=== PATIENT | male | born 1930 | race Caucasian/White ===

== ENCOUNTER 2016-09-23 23:54 | Inpatient (IN) | payer MEDICARE, OTHER ==
[2016-09-23 23:54] VITALS: BMI 26.4
--- NOTE | 2016-09-24 00:22 | C.PDOC ---
History Of Present Illness The patient, with PMHx of severe Parkinson's Disease, presents to the ED via BLS for evaluation of generalized weakness. Additional history limited due to patient being a poor historian. Time Seen by Provider: 09/24/16 00:16 Chief Complaint (Nursing): Weakness/Neurological Deficit History Per: Patient History/Exam Limitations: clinical condition (severe Parkinson's Disease ) Onset/Duration Of Symptoms: Hrs Current Symptoms Are (Timing): Still Present Severity: Mild Pain Scale Rating Of: 3 Recent travel outside of the [place]: No Additional History Per: Patient Past Medical History Reviewed: Historical Data, Nursing Documentation, Vital Signs Vital Signs: Last Vital Signs Temp 98 F 09/23/16 23:57 Pulse 80 09/23/16 23:57 Resp 20 09/23/16 23:57 BP 96/55 L 09/23/16 23:57 Pulse Ox 98 09/24/16 01:23 - Medical History PMH: CHF, HTN, Parkinson's Disease Surgical History: No Surg Hx Family History: States: Unknown Family Hx - Social History Hx Tobacco Use: No Hx Alcohol Use: No Hx Substance Use: No - Immunization History Hx Tetanus Toxoid Vaccination: Yes Hx Influenza Vaccination: Yes Hx Pneumococcal Vaccination: Yes Review Of Systems Review Of Systems: ROS cannot be obtained secondary to pt's inabilty to answer questions. Physical Exam - Physical Exam Appears: Non-toxic, No Acute Distress Skin: Warm, Dry, Ecchymosis (old, to upper extremity ), Other (small, 1cm skin tear to left forearm ) Head: Normacephalic Eye(s): bilateral: Normal Inspection Oral Mucosa: Moist Neck: Supple Chest: Symmetrical, No Deformity, No Tenderness Cardiovascular: Rhythm Regular, No Murmur Respiratory: No Rales, No Rhonchi, No Wheezing Extremity: No Normal ROM (b/l cogwheel rigidity ), Capillary Refill (less than 2 seconds ) Neurological/Psych: No Normal Speech (difficult ) Gait: Other (+shuffling) ED Course And Treatment - Laboratory Results Result Diagrams: 09/24/16 00:39 09/24/16 00:39 ECG: Interpreted By Me, Viewed By Me ECG Rhythm: Sinus Rhythm (83), Nonspecific Changes O2 Sat by Pulse Oximetry: 98 (on RA) Pulse Ox Interpretation: Normal - Radiology CXR Interpretation: No: Infiltrates, Fracture, Pnemothorax Progress Note: labs, CXR, and EKG ordered and reviewed. Disposition Discussed With Dr.: Vitaliy Lauren Comment: accepteed the tp on his service and took over the care Doctor Will See Patient In The: ED Counseled Patient/Family Regarding: Studies Performed, Diagnosis - Disposition Disposition: HOSPITALIZED Disposition Time: 00:22 Condition: FAIR - POA Present On Arrival: Falls Or Trauma, Poor Glycemic Control - Clinical Impression Clinical Impression: Status post fall, Diabetes mellitus, Recurrent falls, Parkinson disease - Scribe Statement The provider has reviewed the documentation as recorded by the Scribe (Sarah Sheriff) Provider Attestation: All medical record entries made by the Scribe were at my direction and personally dictated by me. I have reviewed the chart and agree that the record accurately reflects my personal performance of the history, physical exam, medical decision making, and the department course for this patient. I have also personally directed, reviewed, and agree with the discharge instructions and disposition. Decision To Admit - Pt Status Changed To: Hospital Disposition Of: Inpatient - Admit Certification Admit to Inpatient:: After my assessment, the patient will require hospitalization for at least two midnights. This is because of the severity of symptoms shown, intensity of services needed, and/or the medical risk in this patient being treated as an outpatient. - InPatient: Physician Admission Certification: I certify that this patient requires 2 or more midnights of care for the following reason:: After my assessment, the patient will require hospitalization for at least two midnights. This is because of the severity of symptoms shown, intensity of services needed, and/or the medical risk in this patient being treated as an outpatient. - . Bed Request Type: Regular Admitting Physician: Vitaliy Lauren Patient Diagnosis: Status post fall, Diabetes mellitus, Recurrent falls, Parkinson disease
[2016-09-24 00:44] LABS: BASO # 0.1 K/uL (0.0-0.2); HEMOGLOBIN 11.1 g/dL (12.0-18.0); MEAN CELL VOLUME 93.4 fL (80.0-94.0); NEUT # 7.8 K/uL (1.8-7.0)
[2016-09-24 00:46] LABS: BASO % 0.7 % (0.0-2.0); EOS # 0.1 K/uL (0.0-0.7); EOS % 1.4 % (0.0-4.0); LYMPH % 9.7 % (20.0-40.0); MEAN CORPUSCULAR HEMOGLOBIN 31.1 pg (27.0-31.0); MEAN CORPUSCULAR HGB CONC 33.3 g/dL (33.0-37.0); MONO % 9.8 % (0.0-10.0); NEUT % 78.4 % (50.0-75.0); PLATELET COUNT 160 K/uL (130-400); RBC 3.56 Mil/uL (4.40-5.90); RED CELL DISTRIBUTION WIDTH 14.1 % (11.5-14.5); WHITE BLOOD COUNT 9.9 K/uL (4.8-10.8)
[2016-09-24 00:54] LABS: ALBUMIN 3.6 g/dL (3.5-5.0)
[2016-09-24 00:57] LABS: ALB/GLOB RATIO 0.8 (1.0-2.1); AST/SGOT 98 U/L (17-59); BLOOD UREA NITROGEN 30 mg/dL (9-20); GFR AFRICAN-AMERICAN > 60; GFR NON-AFRICAN AMERICAN 52
[2016-09-24 00:58] LABS: ALT/SGPT 45 U/L (21-72); CALCIUM 9.2 mg/dl (8.6-10.4)
[2016-09-24 01:28] LABS: INR 1.3; PROTHROMBIN TIME 14.4 SECONDS (9.7-12.2)
--- NOTE | 2016-09-24 01:58 | CT ---
EXAM: CT Head Without Intravenous Contrast CLINICAL HISTORY: 86 years old, male; Pain; Headache; Patient HX: Mri 08-16-15; Additional info: Fall, parkinson TECHNIQUE: Axial computed tomography images of the head/brain without intravenous contrast. This CT exam was performed using one or more of the following dose reduction techniques: automated exposure control, adjustment of the mA and/or kV according to patient size, and/or use of iterative reconstruction technique. EXAM DATE/TIME: 09/24/2016 1:03 AM COMPARISON: Prior images are not available for review. FINDINGS: Brain: There is dilatation of sulci gyri and ventricles. There is no midline shift. There is decreased attenuation in periventricular white matter. There are no focal masses. There are no focal hemorrhages. Biswas-white differentiation is visualized. Ventricles: See above. Bones: Cranial vault is intact. Soft tissues: unremarkable Sinuses: There is no acute sinusitis. Ears and mastoids: Middle ears and mastoids are unremarkable. Orbits: Orbital contents are unremarkable. IMPRESSION: Atrophy and small vessel disease, no acute intracranial abnormality
--- NOTE | 2016-09-24 04:29 | CP.PCM.HP ---
<Myranda Herring - Last Filed: 09/24/16 05:33> History of Present Illness - History of Present Illness History of Present Illness: Medicine Note CC: frequent falls HPI: 86M with PMHx of CHF, HTN, HLD, DM presents to the ED due to frequent falls by EMS. Difficult to obtain history, due to patient's speech. From what patient recalls, is that he fell yesterday, hit his head, injured both elbows. No family was at bedside. As per nurse, Niece: Leonor [phone] can be reached. ROS unattainable due to patient's speech. PMHx: As per previous records: CHF, HTN, HLD, DM PSHx: Unattainable Meds: As per MAR All: NKDA SHx: Unattainable FHx: Unattainable Present on Admission - Present on Admission Any Indicators Present on Admission: No Review of Systems - Constitutional Constitutional: absent: Anorexia, Fever - EENT Eyes: absent: Change in Vision Ears: absent: Tinnitus Nose/Mouth/Throat: absent: Sore Throat, Neck Mass - Cardiovascular Cardiovascular: absent: Chest Pain, Radiating Pain - Respiratory Respiratory: absent: Cough, Dyspnea, Dyspnea on Exertion - Gastrointestinal Gastrointestinal: absent: Abdominal Pain - Genitourinary Genitourinary: absent: Dysuria, Hematuria - Musculoskeletal Musculoskeletal: absent: Back Pain - Integumentary Integumentary: absent: Wounds - Neurological Neurological: Abnormal Gait, Frequent Falls, Loss of Vision, Weakness. absent: Abnormal Hearing, Dizziness, Numbness - Psychiatric Psychiatric: absent: Anxiety - Hematologic/Lymphatic Hematologic: absent: Easy Bleeding Past Patient History - Infectious Disease Hx of Infectious Diseases: None - Past Medical History & Family History Past Medical History?: Yes - Past Social History Smoking Status: Never Smoked - CARDIAC Hx Congestive Heart Failure: Yes Hx Hypertension: Yes - NEUROLOGICAL Hx Parkinson's Disease: Yes - HEENT Hx Cataracts: Yes - ENDOCRINE/METABOLIC Hx Diabetes Mellitus Type 2: Yes - MUSCULOSKELETAL/RHEUMATOLOGICAL Hx Falls: Yes - PSYCHIATRIC Hx Substance Use: No - SURGICAL HISTORY Hx Surgeries: Yes (right ankle surgery, bilateral eye surgeries) - ANESTHESIA Hx Anesthesia: No Meds Allergies/Adverse Reactions: Allergies Allergy/AdvReac Type Severity Reaction Status Date / Time No Known Allergies Allergy Verified 09/24/16 00:01 Physical Exam - Constitutional Appears: No Acute Distress - Head Exam Head Exam: NORMAL INSPECTION, NORMOCEPHALIC - Eye Exam Eye Exam: EOMI, Normal appearance, PERRL Pupil Exam: NORMAL ACCOMODATION - ENT Exam ENT Exam: Mucous Membranes Moist - Neck Exam Neck exam: Positive for: Normal Inspection - Respiratory Exam Respiratory Exam: Clear to Auscultation Bilateral, NORMAL BREATHING PATTERN. absent: Wheezes - Cardiovascular Exam Cardiovascular Exam: REGULAR RHYTHM, RRR, +S1, +S2 - GI/Abdominal Exam GI & Abdominal Exam: Normal Bowel Sounds, Soft. absent: Distended, Tenderness - Rectal Exam Rectal Exam: NORMAL INSPECTION - Extremities Exam Extremities exam: Positive for: normal inspection, pedal pulses present. Negative for: pedal edema, tenderness - Back Exam Back exam: NORMAL INSPECTION - Neurological Exam Neurological exam: Alert, CN II-XII Intact, Oriented x3 - Psychiatric Exam Psychiatric exam: Normal Affect, Normal Mood - Skin Skin Exam: Dry, Intact, Normal Color, Warm Results - Vital Signs Recent Vital Signs: Last Vital Signs Temp 98 F 09/23/16 23:57 Pulse 80 09/23/16 23:57 Resp 20 09/23/16 23:57 BP 96/55 L 09/23/16 23:57 Pulse Ox 98 09/24/16 01:23 - Labs Result Diagrams: 09/24/16 00:39 09/24/16 00:39 Labs: Laboratory Results - last 24 hr 09/24/16 09/24/16 09/24/16 00:39 00:39 01:11 WBC 9.9 RBC 3.56 L Hgb 11.1 L Hct 33.3 L MCV 93.4 D MCH 31.1 H MCHC 33.3 RDW 14.1 Plt Count 160 MPV 10.0 Neut % (Auto) 78.4 H Lymph % (Auto) 9.7 L [place] % (Auto) 9.8 Eos % (Auto) 1.4 Baso % (Auto) 0.7 Neut # 7.8 H Lymph # 1.0 [place] # 1.0 H Eos # 0.1 Baso # 0.1 PT 14.4 H INR 1.3 APTT 30 Sodium 139 Potassium 3.8 Chloride 106 Carbon Dioxide 23 Anion Gap 14 BUN 30 H Creatinine 1.3 Est GFR ( Amer) > 60 Est GFR (Non-Af Amer) 52 Random Glucose 149 H Calcium 9.2 Total Bilirubin 0.9 AST 98 H D ALT 45 Alkaline Phosphatase 122 Total Protein 8.1 Albumin 3.6 Globulin 4.5 H Albumin/Globulin Ratio 0.8 L Assessment & Plan - Assessment and Plan (Free Text) Assessment: 86M with PMHx of CHF, HTN, HLD, DM presents to the ED due to frequent falls. Plan: Frequent Falls * Head CT w/o contrast: Atrophy and small vessel disease, no acute intracranial abnormality * F/U vit D, vit B12 CHF * Last ECHO: 07/2015 EF 70% with mild pulm HTN HTN * Continue home medication: Lisinopril 5mg PO daily HLD * Continue home medication: Crestor 10mg PO QHS DM * Accuchecks * Held patient's home medication: Amaryl Prophylactic Measure * GI PPX: Protonix 40mg PO daily * DVT PPX: Heparin Q12H, SCDs * Heart Healthy - soft diet * PT/OT eval * Social Work Consult : YANET planning * Fall Risk Precautions DW Nima Calvin DO, PGY-1 <Vitaliy Lauren P - Last Filed: 09/29/16 06:33> Results - Vital Signs Recent Vital Signs: Last Vital Signs Temp 97.7 F 09/27/16 15:00 Pulse 81 09/27/16 15:00 Resp 20 09/27/16 15:00 BP 118/64 09/27/16 15:00 Pulse Ox 97 09/27/16 15:00 - Labs Result Diagrams: 09/27/16 06:16 09/27/16 06:16 Attending/Attestation - Attestation I have personally seen and examined this patient.: Yes I have fully participated in the care of the patient.: Yes I have reviewed all pertinent clinical information: Yes
[2016-09-24 04:45] LABS: BANDS 1 % (0-2); BASOPHIL 1 % (0-2); EOSINOPHIL 1 % (0-4); LYMPHOCYTE 11 % (20-40); MONOCYTE 6 % (0-10); NEUTROPHIL 80 % (50-75); PLATELET ESTIMATE NORMAL (NORMAL); TOTAL CELLS COUNTED 100
[2016-09-24 08:50] LABS: SQUAMOUS EPITHIAL < 1 /hpf (0-5); URINE BACTERIA FEW (<OCC); URINE BILIRUBIN NEGATIVE (NEGATIVE); URINE BLOOD 1+ (NEGATIVE); URINE CLARITY Clear (Clear); URINE COLOR Yellow (YELLOW); URINE GLUCOSE (UA) NORMAL (Normal); URINE LEUKOCYTE ESTERASE NEG Leu/uL (Negative); URINE NITRATE NEGATIVE (NEGATIVE); URINE PROTEIN 2+ mg/dL (NEGATIVE); URINE UROBILINOGEN NORMAL mg/dL (0.2-1.0)
--- NOTE | 2016-09-24 09:39 | CP.PCM.PN ---
<Shania Abdullahi - Last Filed: 09/24/16 19:41> Subjective - Date & Time of Evaluation Date of Evaluation: 09/24/16 Time of Evaluation: 09:35 - Subjective Subjective: Medicine Prorgress Note- Dr. Romano's Service Patient was seen and examined at bedside in no acute distress. Patient has difficulty speaking due to slurring and stuttering that he has had for over a year. He beleives its due to lack of dentures. Patient reports having pain, numbness and tingling in his legs due to his diabetes. Patient states he had a headache and dizziness. Kody reports falling on his head and he thinks its due to his neuropathy, diabetes, and his difficulty with seeing. Per patient, this is his second time falling this year. Patient is awake, alert, and oriented to person, place, but not time. Kody denies chest pain, abdominal pain, nausea, and vomiting. Objective - Vital Signs/Intake and Output Vital Signs (last 24 hours): Temp Pulse Resp BP Pulse Ox 97.9 F 79 18 129/68 100 09/24/16 09:33 09/24/16 09:33 09/24/16 09:33 09/24/16 09:33 09/24/16 09:33 - Medications Medications: Current Medications Aspirin (Aspirin Chewable) 81 mg PO DAILY [facility] Lisinopril (Zestril) 5 mg PO DAILY AUG[facility] Pantoprazole Sodium (Protonix Ec Tab) 40 mg PO DAILY AUGUST Rosuvastatin Calcium (Crestor) 10 mg PO HS AUGUST - Labs Labs: PT 14.4 SECONDS (9.7-12.2) H 09/24/16 01:11 INR 1.3 09/24/16 01:11 APTT 30 SECONDS (21-34) 09/24/16 01:11 - Constitutional Appears: No Acute Distress - Head Exam Head Exam: NORMAL INSPECTION, NORMOCEPHALIC - Eye Exam Eye Exam: Normal appearance. absent: EOMI (decreased vision) - ENT Exam ENT Exam: Mucous Membranes Moist - Neck Exam Neck Exam: Normal Inspection - Respiratory Exam Respiratory Exam: Clear to Ausculation Bilateral, NORMAL BREATHING PATTERN. absent: Rhonchi, Wheezes - Cardiovascular Exam Cardiovascular Exam: REGULAR RHYTHM, +S1, +S2 - GI/Abdominal Exam GI & Abdominal Exam: Soft, Normal Bowel Sounds. absent: Tenderness - Extremities Exam Extremities Exam: Pedal Edema. absent: Calf Tenderness, Tenderness - Neurological Exam Neurological Exam: Alert, Awake. absent: Oriented x3 - Psychiatric Exam Psychiatric exam: Normal Affect, Normal Mood - Skin Skin Exam: Dry, Intact, Normal Color, Warm Assessment and Plan (1) Recurrent falls Assessment & Plan: * Head CT w/o contrast: Atrophy and small vessel disease, no acute intracranial abnormality * Left and Right elbow xray: no fractures * Left hip xray: no fracture * Left knee xray: no fracture * F/U vit D, vit B12 * A1c: f/u Status: Acute (2) CHF (congestive heart failure) Assessment & Plan: * Last ECHO: 07/2015 EF 70% with mild pulm HTN Status: Acute (3) Diabetes mellitus Assessment & Plan: * Accuchecks * Held patient's home medication: Amaryl * A1c: f/u * ISS ACHS Status: Acute (4) Hyperlipidemia Assessment & Plan: * Continue home medication: Crestor 10mg PO QHS Status: Acute (5) Hypertension Assessment & Plan: * Continue home medication: Lisinopril 5mg PO daily * Monitor BP Status: Acute (6) Leg pain, left Assessment & Plan: Left knee xray- no fracture Left Hip xray- no fracture Status: Acute (7) Prophylactic measure Assessment & Plan: * GI PPX: Protonix 40mg PO daily * DVT PPX: Heparin Q12H, SCDs * Heart Healthy - soft diet, [place] thick * PT/OT eval * Social Work Consult : YANET planning * Case work- placement assessment * Fall Risk Precautions Status: Acute <Chepe Romano H - Last Filed: 09/25/16 07:41> Objective - Vital Signs/Intake and Output Vital Signs (last 24 hours): Temp Pulse Resp BP Pulse Ox 98.7 F 71 20 114/64 97 09/25/16 07:20 09/25/16 07:20 09/25/16 07:20 09/25/16 07:20 09/25/16 07:20 Intake and Output: 09/25/16 09/25/16 06:59 18:59 Intake Total 450 Balance 450 - Medications Medications: Current Medications Aspirin (Aspirin Chewable) 81 mg PO DAILY [facility] Last Admin: 09/24/16 10:29 Dose: 81 mg Insulin Human Regular (Novolin R) 0 unit SC ACHS [facility] PRN Reason: Protocol Last Admin: 09/24/16 21:53 Dose: Not Given Lisinopril (Zestril) 5 mg PO DAILY [facility] Last Admin: 09/24/16 10:29 Dose: 5 mg Pantoprazole Sodium (Protonix Ec Tab) 40 mg PO DAILY [facility] Last Admin: 09/24/16 10:29 Dose: 40 mg Rosuvastatin Calcium (Crestor) 10 mg PO HS [facility] Last Admin: 09/24/16 21:56 Dose: 10 mg - Labs Labs: 09/25/16 07:25 PT 14.4 SECONDS (9.7-12.2) H 09/24/16 01:11 INR 1.3 09/24/16 01:11 APTT 30 SECONDS (21-34) 09/24/16 01:11 Attending/Attestation - Attestation I have personally seen and examined this patient.: Yes I have fully participated in the care of the patient.: Yes I have reviewed all pertinent clinical information, including history, physical exam and plan: Yes Notes (Text): Medical attending: Patient was seen and examined by me, agrees the above note by medical esthetician. When he was seen by the medical esthetician earlier in the morning, it appears that he was more awake and alert and able to answer some questions. However by the time I rounded with the medical team. He is much quieter. He was following some basic commands in [place] held for the extent of which was not great news be able to do basic things such as raise his hand stick his tongue out lift his legs on command. However it appears that he has a lot of baseline dementia. Per my discussion with the medical esthetician as well as the nursing staff it's a very questionable how much activities of daily living that this patient is able to do per my discussion with the caseworkers regarding her have physical therapy and OT evaluate and the patient. The patient may ultimately need to go to [facility] and then from [facility] over to assisted care living facility or halfway placement however will still have to wait for PT dulce Reviewed his vital signs lab work they're quite stable at this time. He does have some bruises from the falls that he's had the x-ray imaging is negative for any fractures Thank you very much, Chepe Romano
[2016-09-24] MEDS: Pantoprazole 40 mg EC Tab PO SCH (10:29)
--- NOTE | 2016-09-24 12:09 | RAD ---
PROCEDURE: CHEST RADIOGRAPH, 1 VIEW HISTORY: Shortness of breath COMPARISON: 08/15/2015 FINDINGS: LUNGS: Mild to moderate venous congestion with mild patchy left basilar airspace opacity. Biapical pleural thickening with upper lobe granulomatous changes. PLEURA: As above. CARDIOVASCULAR: Cardiomegaly. Calcification at the aortic knob. OSSEOUS STRUCTURES: Degenerative changes in the spine and shoulders. VISUALIZED UPPER ABDOMEN: Normal. OTHER FINDINGS: None. IMPRESSION: Mild to moderate venous congestion with mild patchy left basilar airspace opacity. Biapical pleural thickening with upper lobe granulomatous changes.
--- NOTE | 2016-09-24 16:48 | RAD ---
PROCEDURE: Radiographs of the left elbow. HISTORY: fall COMPARISON: No prior. FINDINGS: BONES: . No fracture. Coronoid spurring well corticated ossifications ir the lateral epicondyle calcific tendinopathy and or loose bodies here are considerations. Tubing also projects over this area JOINTS: Mild osteoarthritis. SOFT TISSUES: Normal. JOINT EFFUSION: None. OTHER FINDINGS: None IMPRESSION: No fracture. Osteoarthrosis. Lateral humeral epicondylar calcific tendinosis centered loose bodies. Posterior olecranon spurring
--- NOTE | 2016-09-24 16:50 | RAD ---
PROCEDURE: Radiographs of the right elbow. HISTORY: fall COMPARISON: No prior. FINDINGS: BONES: . No fracture.. No fracture. Coronoid spurring well corticated ossifications ir the lateral epicondyle calcific tendinopathy and or loose bodies here are considerations. Tubing also projects over this area. Olecranon spurring. JOINTS: osteoarthritis. SOFT TISSUES: As above JOINT EFFUSION: None. OTHER FINDINGS: None. IMPRESSION: No fracture. Other findings as above
--- NOTE | 2016-09-24 16:52 | RAD ---
PROCEDURE: HISTORY: fall COMPARISON: None TECHNIQUE: AP view of the pelvis and applicable frog leg views obtained. FINDINGS: Bilateral superolateral hip joint space narrowing with acetabular spurring No fracture or dislocation. Lumbosacral prominent spondylosis additional subluxation here is possible per the frontal appearance no lateral views available. Vascular calcifications. Left hemipelvic phlebolith. IMPRESSION: Bilateral hip osteoarthrosis. No hip fracture appreciated. Lumbosacral spondylosis
--- NOTE | 2016-09-24 16:53 | RAD ---
PROCEDURE: Left Knee Radiographs. HISTORY: Pain. COMPARISON: None. FINDINGS: BONES: Quadriceps insertional enthesophyte. . No fracture. JOINTS: Normal. No osteoarthritis. JOINT EFFUSION: None. OTHER FINDINGS: Atherosclerotic vascular calcifications IMPRESSION: No fracture or lytic lesion. Quadriceps enthesophyte. Vascular calcifications
[2016-09-24] MEDS: (Novolin R) Insulin Human Regular 100 units/ml vial SC SCH ×2 (17:45→21:53)
[2016-09-25 07:28] LABS: BASO # 0.1 K/uL (0.0-0.2); BASO % 1.1 % (0.0-2.0); EOS # 0.8 K/uL (0.0-0.7); EOS % 9.2 % (0.0-4.0); HEMOGLOBIN 10.8 g/dL (12.0-18.0); LYMPH # 1.4 K/uL (1.0-4.3); LYMPH % 17.4 % (20.0-40.0); MEAN CELL VOLUME 92.9 fL (80.0-94.0); MEAN CORPUSCULAR HEMOGLOBIN 30.7 pg (27.0-31.0); MEAN PLATELET VOLUME 10.5 fL (7.2-11.7); MONO # 0.9 K/uL (0.0-0.8); MONO % 10.3 % (0.0-10.0); NEUT # 5.1 K/uL (1.8-7.0); RBC 3.52 Mil/uL (4.40-5.90); RED CELL DISTRIBUTION WIDTH 14.4 % (11.5-14.5); WHITE BLOOD COUNT 8.3 K/uL (4.8-10.8)
[2016-09-25 07:41] LABS: ALB/GLOB RATIO 0.6 (1.0-2.1); AST/SGOT 93 U/L (17-59); BLOOD UREA NITROGEN 23 mg/dL (9-20); GFR AFRICAN-AMERICAN > 60; GFR NON-AFRICAN AMERICAN 52
[2016-09-25 07:42] LABS: ALT/SGPT 46 U/L (21-72); CALCIUM 8.9 mg/dl (8.6-10.4); MAGNESIUM 1.9 mg/dL (1.6-2.3)
--- NOTE | 2016-09-25 07:43 | CP.PCM.PN ---
<Shania Abdullahi - Last Filed: 09/25/16 18:33> Subjective - Date & Time of Evaluation Date of Evaluation: 09/25/16 Time of Evaluation: 07:41 - Subjective Subjective: Medicine Progress Note- Dr. Romano's Service Patient was seen and examined at bedside in no acute distress. Patient speaks Turkmen and has slurred stuttered speech, which he reports he has had for a long time. Patient reports having left ankle pain that he says is due to arthritis. Patient denies chest pain, palpitations, abdominal pain, nausea, vomiting, headaches and dizziness. Objective - Vital Signs/Intake and Output Vital Signs (last 24 hours): Temp Pulse Resp BP Pulse Ox 98.7 F 71 20 114/64 97 09/25/16 07:20 09/25/16 07:20 09/25/16 07:20 09/25/16 07:20 09/25/16 07:20 Intake and Output: 09/25/16 09/25/16 06:59 18:59 Intake Total 450 Balance 450 - Medications Medications: Current Medications Aspirin (Aspirin Chewable) 81 mg PO DAILY [facility] Last Admin: 09/24/16 10:29 Dose: 81 mg Insulin Human Regular (Novolin R) 0 unit SC [facility] PRN Reason: Protocol Last Admin: 09/24/16 21:53 Dose: Not Given Lisinopril (Zestril) 5 mg PO DAILY [facility] Last Admin: 09/24/16 10:29 Dose: 5 mg Pantoprazole Sodium (Protonix Ec Tab) 40 mg PO DAILY [facility] Last Admin: 09/24/16 10:29 Dose: 40 mg Rosuvastatin Calcium (Crestor) 10 mg PO [facility] Last Admin: 09/24/16 21:56 Dose: 10 mg - Labs Labs: 09/25/16 07:25 09/25/16 07:09 PT 14.4 SECONDS (9.7-12.2) H 09/24/16 01:11 INR 1.3 09/24/16 01:11 APTT 30 SECONDS (21-34) 09/24/16 01:11 - Constitutional Appears: No Acute Distress - Head Exam Head Exam: NORMAL INSPECTION, NORMOCEPHALIC - Eye Exam Eye Exam: Normal appearance. absent: EOMI (poor vision) - ENT Exam ENT Exam: Mucous Membranes Moist - Neck Exam Neck Exam: Normal Inspection - Respiratory Exam Respiratory Exam: Clear to Ausculation Bilateral, NORMAL BREATHING PATTERN. absent: Rhonchi, Wheezes - Cardiovascular Exam Cardiovascular Exam: +S1, +S2 - GI/Abdominal Exam GI & Abdominal Exam: Soft, Normal Bowel Sounds. absent: Tenderness - Extremities Exam Extremities Exam: Normal Inspection. absent: Calf Tenderness, Pedal Edema, Tenderness - Neurological Exam Neurological Exam: Alert, Awake, Oriented x3 - Psychiatric Exam Psychiatric exam: Normal Affect, Normal Mood - Skin Skin Exam: Dry, Intact, Normal Color (LE discoloration due to PVD), Warm Assessment and Plan (1) Recurrent falls Assessment & Plan: * Head CT w/o contrast: Atrophy and small vessel disease, no acute intracranial abnormality * Left and Right elbow xray: no fractures * Left hip xray: no fracture * Left knee xray: no fracture * Vit D <12.8 --> ergocalciferol 50,000 units weekly * Vit B12 588 * A1c: 7.2 Status: Acute (2) CHF (congestive heart failure) Assessment & Plan: Last ECHO: 07/2015 EF 70% with mild pulm HTN Status: Acute (3) Diabetes mellitus Assessment & Plan: * Accuchecks * Held patient's home medication: Amaryl * A1c: 7.2 * ISS ACHS Status: Acute (4) Hyperlipidemia Assessment & Plan: Continue home medication: Crestor 10mg PO QHS Status: Acute (5) Hypertension Assessment & Plan: Continue home medication: Lisinopril 5mg PO daily Monitor BP Status: Acute (6) Leg pain, left Assessment & Plan: Left knee xray- no fracture Left Hip xray- no fracture Status: Acute (7) Prophylactic measure Assessment & Plan: * GI PPX: Protonix 40mg PO daily * DVT PPX: Heparin Q12H, SCDs * Heart Healthy - soft diet, [place] thick * PT/OT eval * Social Work Consult : YANET planning * Case work- placement assessment * Fall Risk Precautions Status: Acute <Chepe Romano - Last Filed: 09/25/16 18:54> Objective - Vital Signs/Intake and Output Vital Signs (last 24 hours): Temp Pulse Resp BP Pulse Ox 98.9 F 78 20 102/48 L 99 09/25/16 15:50 09/25/16 15:50 09/25/16 15:50 09/25/16 15:50 09/25/16 15:50 Intake and Output: 09/25/16 09/25/16 06:59 18:59 Intake Total 450 480 Balance 450 480 - Medications Medications: Current Medications Aspirin (Aspirin Chewable) 81 mg PO DAILY [facility] Last Admin: 09/25/16 09:45 Dose: 81 mg Ergocalciferol (Drisdol 50,000 Intl Units Cap) 1 cap PO Q7D [facility] Last Admin: 09/25/16 15:51 Dose: 1 cap Heparin Sodium (Porcine) (Heparin) 5,000 units SC Q12 [facility] Insulin Human Regular (Novolin R) 0 unit SC [facility] PRN Reason: Protocol Last Admin: 09/25/16 16:54 Dose: Not Given Lisinopril (Zestril) 5 mg PO DAILY [facility] Last Admin: 09/25/16 09:45 Dose: 5 mg Pantoprazole Sodium (Protonix Ec Tab) 40 mg PO DAILY [facility] Last Admin: 09/25/16 09:45 Dose: 40 mg Rosuvastatin Calcium (Crestor) 10 mg PO HS [facility] Last Admin: 09/24/16 21:56 Dose: 10 mg - Labs Labs: 09/25/16 07:25 09/25/16 07:09 PT 14.4 SECONDS (9.7-12.2) H 09/24/16 01:11 INR 1.3 09/24/16 01:11 APTT 30 SECONDS (21-34) 09/24/16 01:11 Attending/Attestation - Attestation I have personally seen and examined this patient.: Yes I have fully participated in the care of the patient.: Yes I have reviewed all pertinent clinical information, including history, physical exam and plan: Yes Notes (Text): Medical Attending: Patient was seen and examined by me. Agree with the above note by the resident. The patient was awake and alert. Depending on who was talking to the patient it seems as if there were times when he had more mental function and other times when appears somulent. No fevers, blood work stable, vital signs stable as well. Per discussion with case workers still pending on acceptance thank you Chepe Romano
[2016-09-25] MEDS: (Novolin R) Insulin Human Regular 100 units/ml vial SC SCH ×4 (08:06→21:17)
[2016-09-25] MEDS: Pantoprazole 40 mg EC Tab PO SCH (09:45)
[2016-09-25] MEDS ORDERED: Ergocalciferol 50,000 Intl Units Cap PO SCH (14:45)
--- NOTE | 2016-09-26 07:32 | CP.PCM.PN ---
Subjective - Date & Time of Evaluation Date of Evaluation: 09/26/16 Time of Evaluation: 07:29 - Subjective Subjective: Medicine Progress Report-Dr. Romano's Service Patient was seen and examined at bedside. Patient was resting comfortably in bed and in no acute distress. Patient states he has pain in his left leg, likely due to arthritis. Patient denies having chest pain, abdominal pain, shortness of breath, nausea, vomiting, diarrhea, and constipation. Objective - Vital Signs/Intake and Output Vital Signs (last 24 hours): Temp Pulse Resp BP Pulse Ox 98.1 F 75 20 109/61 98 09/25/16 23:49 09/25/16 23:49 09/25/16 23:49 09/25/16 23:49 09/25/16 23:49 Intake and Output: 09/26/16 09/26/16 06:59 18:59 Intake Total 200 Balance 200 - Medications Medications: Current Medications Aspirin (Aspirin Chewable) [address] [facility] Last Admin: 09/25/16 09:45 Dose: 81 mg Ergocalciferol (Drisdol 50,000 Intl Units Cap) [address] [facility] Last Admin: 09/25/16 15:51 Dose: 1 cap Heparin Sodium (Porcine) (Heparin) 5,[address] [facility] Last Admin: 09/25/16 21:36 Dose: 5,000 units Insulin Human Regular (Novolin R) [address] [facility] PRN Reason: Protocol Last Admin: 09/25/16 21:17 Dose: Not Given Lisinopril (Zestril) [address] [facility] Last Admin: 09/25/16 09:45 Dose: 5 mg Pantoprazole Sodium (Protonix Ec Tab) [address] [facility] Last Admin: 09/25/16 09:45 Dose: 40 mg Rosuvastatin Calcium (Crestor) [address] [facility] Last Admin: 09/25/16 21:36 Dose: 10 mg - Labs Labs: 09/25/16 07:25 09/25/16 07:09 PT 14.4 SECONDS (9.7-12.2) H 09/24/16 01:11 INR 1.3 09/24/16 01:11 APTT 30 SECONDS (21-34) 09/24/16 01:11 - Constitutional Appears: No Acute Distress - Head Exam Head Exam: NORMAL INSPECTION, NORMOCEPHALIC - Eye Exam Eye Exam: Normal appearance. absent: EOMI - ENT Exam ENT Exam: Mucous Membranes Moist - Neck Exam Neck Exam: Normal Inspection - Respiratory Exam Respiratory Exam: Clear to Ausculation Bilateral, NORMAL BREATHING PATTERN. absent: Rhonchi, Wheezes - Cardiovascular Exam Cardiovascular Exam: +S1, +S2 - GI/Abdominal Exam GI & Abdominal Exam: Soft, Normal Bowel Sounds. absent: Tenderness - Extremities Exam Extremities Exam: Normal Inspection. absent: Pedal Edema, Tenderness - Neurological Exam Neurological Exam: Alert, Awake. absent: Oriented x3 - Psychiatric Exam Psychiatric exam: Normal Affect, Normal Mood - Skin Skin Exam: Dry, Intact, Normal Color, Warm Assessment and Plan (1) Recurrent falls Assessment & Plan: * Head CT w/o contrast: Atrophy and small vessel disease, no acute intracranial abnormality * Left and Right elbow xray: no fractures * Left hip xray: no fracture * Left knee xray: no fracture * Left ankle xray: f/u * Vit D <12.8 --> ergocalciferol 50,000 units weekly * Vit B12 588 * A1c: 7.2 Status: Acute (2) CHF (congestive heart failure) Assessment & Plan: Last ECHO: 07/2015 EF 70% with mild pulm HTN Status: Acute (3) Diabetes mellitus Assessment & Plan: * Accuchecks * Held patient's home medication: Amaryl * A1c: 7.2 * ISS ACHS Status: Acute (4) Hyperlipidemia Assessment & Plan: Continue home medication: Crestor 10mg PO QHS Status: Acute (5) Hypertension Assessment & Plan: Continue home medication: Lisinopril 5mg PO daily Status: Acute (6) Leg pain, left Assessment & Plan: Left knee xray- no fracture Left Hip xray- no fracture Left ankle xray: f/u Likely secondary to arthritis Status: Acute (7) Prophylactic measure Assessment & Plan: * GI PPX: Protonix 40mg PO daily * DVT PPX: Heparin Q12H, SCDs * Heart Healthy - soft diet, [place] thick * PT/OT eval * Social Work Consult : YANET planning * Case work- placement assessment * Fall Risk Precautions Status: Acute
[2016-09-26] MEDS: (Novolin R) Insulin Human Regular 100 units/ml vial SC SCH ×4 (07:47→21:54)
[2016-09-26 08:25] LABS: BASO # 0.1 K/uL (0.0-0.2); EOS # 0.3 K/uL (0.0-0.7); EOS % 3.8 % (0.0-4.0); HEMOGLOBIN 11.7 g/dL (12.0-18.0); LYMPH # 1.6 K/uL (1.0-4.3); LYMPH % 17.6 % (20.0-40.0); MEAN CELL VOLUME 93.8 fL (80.0-94.0); MEAN CORPUSCULAR HEMOGLOBIN 30.8 pg (27.0-31.0); MEAN CORPUSCULAR HGB CONC 32.8 g/dL (33.0-37.0); MONO # 0.8 K/uL (0.0-0.8); MONO % 8.5 % (0.0-10.0); NEUT # 6.3 K/uL (1.8-7.0); NEUT % 69.1 % (50.0-75.0); RBC 3.82 Mil/uL (4.40-5.90); WHITE BLOOD COUNT 9.1 K/uL (4.8-10.8)
[2016-09-26 08:44] LABS: ALBUMIN 3.4 g/dL (3.5-5.0)
[2016-09-26 08:47] LABS: ALB/GLOB RATIO 0.7 (1.0-2.1); ALT/SGPT 39 U/L (21-72); AST/SGOT 77 U/L (17-59); BLOOD UREA NITROGEN 21 mg/dL (9-20); GFR AFRICAN-AMERICAN > 60; GFR NON-AFRICAN AMERICAN 58
[2016-09-26 08:48] LABS: CALCIUM 9.2 mg/dl (8.6-10.4); MAGNESIUM 1.9 mg/dL (1.6-2.3)
[2016-09-26] MEDS ORDERED: Potassium Chloride 20 mEq ER Tab PO ONE (09:18)
[2016-09-26] MEDS: Pantoprazole 40 mg EC Tab PO SCH (12:46)
--- NOTE | 2016-09-26 16:19 | CARD ---
APPROVED REPORT EKG Measurement Heart [id number] <Conclusion> Normal sinus rhythm Normal ECG
--- NOTE | 2016-09-26 16:46 | RAD ---
PROCEDURE: Left Ankle Radiographs. HISTORY: ankle pain, fall COMPARISON: None FINDINGS: BONES: Evaluation of the posterior malleolus/ posterior fibular cortical anatomy is limited. This limitation may in part be due to summation of vascular calcifications in this area. On the frontal and oblique views no cortical fractures are appreciated. Inferior posterior calcaneal spurring JOINTS: Normal. No significant appearing osteoarthritis. Ankle mortise maintained. Talar dome intact SOFT TISSUES: Atherosclerotic vascular calcifications OTHER FINDINGS: None. IMPRESSION: Evaluation of the posterior malleolus/ posterior fibular cortical anatomy is limited. This limitation may in part be due to summation of vascular calcifications in this area. On the frontal and oblique views no cortical fractures are appreciated. . If clinical symptoms warrant, consider more sensitive evaluation with a CT or MR
[2016-09-26 23:55] VITALS: RESP 20
[2016-09-27 06:22] LABS: BASO # 0.1 K/uL (0.0-0.2); EOS # 0.9 K/uL (0.0-0.7); EOS % 9.7 % (0.0-4.0); HEMOGLOBIN 11.7 g/dL (12.0-18.0); LYMPH # 1.9 K/uL (1.0-4.3); LYMPH % 20.7 % (20.0-40.0); MEAN CORPUSCULAR HEMOGLOBIN 31.3 pg (27.0-31.0); MEAN CORPUSCULAR HGB CONC 33.6 g/dL (33.0-37.0); MONO # 0.9 K/uL (0.0-0.8); MONO % 9.6 % (0.0-10.0); NEUT # 5.4 K/uL (1.8-7.0); RBC 3.73 Mil/uL (4.40-5.90); RED CELL DISTRIBUTION WIDTH 14.3 % (11.5-14.5); WHITE BLOOD COUNT 9.1 K/uL (4.8-10.8)
[2016-09-27 06:38] LABS: ALB/GLOB RATIO 0.7 (1.0-2.1); ALBUMIN 3.4 g/dL (3.5-5.0); ALT/SGPT 39 U/L (21-72); AST/SGOT 59 U/L (17-59); BLOOD UREA NITROGEN 17 mg/dL (9-20); GFR AFRICAN-AMERICAN > 60; GFR NON-AFRICAN AMERICAN 58; MAGNESIUM 1.8 mg/dL (1.6-2.3)
[2016-09-27] MEDS: (Novolin R) Insulin Human Regular 100 units/ml vial SC SCH ×4 (09:28→17:45)
[2016-09-27] MEDS: Pantoprazole 40 mg EC Tab PO SCH (09:28)
--- NOTE | 2016-09-27 15:28 | CP.PCM.DIS ---
<Shania Abdullahi - Last Filed: 09/27/16 15:08> Provider - Provider Date of Admission: 09/24/16 05:20 Attending physician: Vitaliy Lauren MD Time Spent in preparation of Discharge (in minutes): 45 Diagnosis - Discharge Diagnosis (1) Recurrent falls Status: Chronic Comment: See hospital summary for more details. (2) CHF (congestive heart failure) Status: Chronic Comment: See hospital summary for more details. (3) Diabetes mellitus Status: Chronic Comment: See hospital summary for more details. (4) Hyperlipidemia Status: Chronic Comment: See hospital summary for more details. (5) Hypertension Status: Chronic Comment: See hospital summary for more details. (6) Leg pain, left Status: Chronic Comment: See hospital summary for more details. Hospital Course - Lab Results Lab Results: Most Recent Lab Values WBC 9.1 K/uL (4.8-10.8) 09/27/16 06:16 RBC 3.73 Mil/uL (4.40-5.90) L 09/27/16 06:16 Hgb 11.7 g/dL (12.0-18.0) L 09/27/16 06:16 Hct 34.7 % (35.0-51.0) L 09/27/16 06:16 MCV 93.0 fL (80.0-94.0) 09/27/16 06:16 MCH 31.3 pg (27.0-31.0) H 09/27/16 06:16 MCHC 33.6 g/dL (33.0-37.0) 09/27/16 06:16 RDW 14.3 % (11.5-14.5) 09/27/16 06:16 Plt Count 181 K/uL (130-400) 09/27/16 06:16 MPV 10.0 fL (7.2-11.7) 09/27/16 06:16 Neut % (Auto) 59.0 % (50.0-75.0) 09/27/16 06:16 Lymph % (Auto) 20.7 % (20.0-40.0) 09/27/16 06:16 [place] % (Auto) 9.6 % (0.0-10.0) 09/27/16 06:16 Eos % (Auto) 9.7 % (0.0-4.0) H 09/27/16 06:16 Baso % (Auto) 1.0 % (0.0-2.0) 09/27/16 06:16 Neut # 5.4 K/uL (1.8-7.0) 09/27/16 06:16 Lymph # 1.9 K/uL (1.0-4.3) 09/27/16 06:16 [place] # 0.9 K/uL (0.0-0.8) H 09/27/16 06:16 Eos # 0.9 K/uL (0.0-0.7) H 09/27/16 06:16 Baso # 0.1 K/uL (0.0-0.2) 09/27/16 06:16 Neutrophils % (Manual) 80 % (50-75) H 09/24/16 00:39 Band Neutrophils % 1 % (0-2) 09/24/16 00:39 Lymphocytes % (Manual) 11 % (20-40) L 09/24/16 00:39 Monocytes % (Manual) 6 % (0-10) 09/24/16 00:39 Eosinophils % (Manual) 1 % (0-4) 09/24/16 00:39 Basophils % (Manual) 1 % (0-2) 09/24/16 00:39 Platelet Estimate Normal (NORMAL) 09/24/16 00:39 RBC Morphology Normal 09/24/16 00:39 PT 14.4 SECONDS (9.7-12.2) H 09/24/16 01:11 INR 1.3 09/24/16 01:11 APTT 30 SECONDS (21-34) 09/24/16 01:11 Sodium 136 mmol/L (132-148) 09/27/16 06:16 Potassium 4.2 mmol/L (3.6-5.2) 09/27/16 06:16 Chloride 103 mmol/L (98-107) 09/27/16 06:16 Carbon Dioxide 25 mmol/L (22-30) 09/27/16 06:16 Anion Gap 13 (10-20) 09/27/16 06:16 BUN 17 mg/dL (9-20) 09/27/16 06:16 Creatinine 1.2 MG/DL (0.8-1.5) 09/27/16 06:16 Est GFR ( Amer) > 60 09/27/16 06:16 Est GFR (Non-Af Amer) 58 09/27/16 06:16 POC Glucose (mg/dL) 143 mg/dL (65-110) H 09/27/16 11:03 Random Glucose 94 mg/dL (75-110) 09/27/16 06:16 Hemoglobin A1c 7.2 % (4.2-6.5) H D 09/25/16 07:09 Calcium 9.0 mg/dl (8.6-10.4) 09/27/16 06:16 Phosphorus 3.3 mg/dL (2.5-4.5) 09/27/16 06:16 Magnesium 1.8 mg/dL (1.6-2.3) 09/27/16 06:16 Total Bilirubin 0.9 mg/dL (0.2-1.3) 09/27/16 06:16 AST 59 U/L (17-59) D 09/27/16 06:16 ALT 39 U/L (21-72) 09/27/16 06:16 Alkaline Phosphatase 119 U/L (38-126) 09/27/16 06:16 Total Protein 8.1 g/dL (6.3-8.3) 09/27/16 06:16 Albumin 3.4 g/dL (3.5-5.0) L 09/27/16 06:16 Globulin 4.6 gm/dL (2.2-3.9) H 09/27/16 06:16 Albumin/Globulin Ratio 0.7 (1.0-2.1) L 09/27/16 06:16 Vitamin B12 588 pg/mL (239-931) 09/25/16 07:09 25-OH Vitamin D Total < 12.8 NG/ML (30.0-100.0) L 09/25/16 07:09 Urine Color Yellow (YELLOW) 09/24/16 08:02 Urine Clarity Clear (Clear) 09/24/16 08:02 Urine pH 5.0 (5.0-8.0) 09/24/16 08:02 Ur Specific Proctor 1.018 (1.003-1.030) 09/24/16 08:02 Urine Protein 2+ mg/dL (NEGATIVE) H 09/24/16 08:02 Urine Glucose (UA) Normal mg/dL (Normal) 09/24/16 08:02 Urine Ketones Negative mg/dL (NEGATIVE) 09/24/16 08:02 Urine Blood 1+ (NEGATIVE) H 09/24/16 08:02 Urine Nitrate Negative (NEGATIVE) 09/24/16 08:02 Urine Bilirubin Negative (NEGATIVE) 09/24/16 08:02 Urine Urobilinogen Normal mg/dL (0.2-1.0) 09/24/16 08:02 Ur Leukocyte Esterase Neg Adolfo/uL (Negative) 09/24/16 08:02 Urine WBC (Auto) 1 /hpf (0-5) 09/24/16 08:02 Urine RBC (Auto) 1 /hpf (0-3) 09/24/16 08:02 Ur Squamous Epith Cells < 1 /hpf (0-5) 09/24/16 08:02 Urine Bacteria Few (<OCC) H 09/24/16 08:02 Hyaline Casts 3-5 /lpf (0-2) H 09/24/16 08:02 - Hospital Course Hospital Course: CC: frequent falls HPI: 86M with PMHx of CHF, HTN, HLD, DM presents to the ED due to frequent falls by EMS. Difficult to obtain history, due to patient's speech. From what patient recalls, is that he fell yesterday, hit his head, injured both elbows. No family was at bedside. As per nurse, Niece: Leonor [phone] can be reached. ROS unattainable due to patient's speech. Hospital course: Patient was admitted for frequent falls. In the ED, the patient 's EKG showed normal sinus rhythm with nonspecific changes and chest xray showed no infiltrates, fractures, or pneumothorax. The patient a head CT without contrast that showed atrophy and small vessel disease and no acute intracranial abnormalities. Patient had xrays of his left and right elbow, left knee, and left ankle which showed no fractures. Patient has a history of CHF, diabetes mellitus hyperlipidemia, and hypertension which were all managed throughout his hospital stay. Patient is stable for discharge to [facility] as per Dr. Romano. This is a summary of the hospital course, please see chart for more details. Patient is stable for discharge to [facility] facility as per Dr. Romano. Patient must continue the following medications listed below: Aspirin 81mg by mouth daily Crestor 20mg by mouth daily Lisinopril 5mg by mouth daily Vitamin D, take 1 tablet once a week Glimepiride 4mg by mouth twice a day Patient should follow up with their primary care doctor within one week of discharge. If symptoms reoccur, patient should return to the ED. Discharge Exam - Head Exam Head Exam: NORMAL INSPECTION, NORMOCEPHALIC - Eye Exam Eye Exam: Normal appearance. absent: EOMI - ENT Exam ENT Exam: Mucous Membranes Moist - Neck Exam Neck exam: Normal Inspection - Respiratory Exam Respiratory Exam: Clear to PA & Lateral, NORMAL BREATHING PATTERN, UNREMARKABLE. absent: Rales, Rhonchi, Wheezes - Cardiovascular Exam Cardiovascular Exam: REGULAR RHYTHM, +S1, +S2 - GI/Abdominal Exam GI & Abdominal Exam: Normal Bowel Sounds, Soft, Unremarkable. absent: Tenderness - Extremities Exam Extremities exam: normal inspection - Neurological Exam Neurological exam: Alert Additional comments: oriented x 2 - Psychiatric Exam Psychiatric exam: Normal Affect, Normal Mood - Skin Skin Exam: Dry, Intact, Normal Color, Warm Discharge Plan - Follow Up Plan Condition: FAIR Disposition: REHAB FACILITY/REHAB UNIT Instructions: Lisinopril (By mouth), Aspirin (By mouth), Glimepiride (By mouth) , Rosuvastatin (By mouth), Vitamin D (By mouth), Diabetes Mellitus Type 2 in Adults (DC), Fall Prevention for Older Adults (GEN), Chronic Hypertension (DC) Additional Instructions: Patient is stable for discharge to [facility] as per Dr. Romano. Patient must continue the following medications listed below: Aspirin 81mg by mouth daily Crestor 20mg by mouth daily Lisinopril 5mg by mouth daily Vitamin D, take 1 tablet once a week Glimepiride 4mg by mouth twice a day Patient should follow up with their primary care doctor within one week of discharge. If symptoms reoccur, patient should return to the ED. <Chepe Romano - Last Filed: 09/27/16 17:38> Provider - Provider Date of Admission: 09/24/16 05:20 Attending physician: Vitaliy Lauren MD Hospital Course - Lab Results Lab Results: Most Recent Lab Values WBC 9.1 K/uL (4.8-10.8) 09/27/16 06:16 RBC 3.73 Mil/uL (4.40-5.90) L 09/27/16 06:16 Hgb 11.7 g/dL (12.0-18.0) L 09/27/16 06:16 Hct 34.7 % (35.0-51.0) L 09/27/16 06:16 MCV 93.0 fL (80.0-94.0) 09/27/16 06:16 MCH 31.3 pg (27.0-31.0) H 09/27/16 06:16 MCHC 33.6 g/dL (33.0-37.0) 09/27/16 06:16 RDW 14.3 % (11.5-14.5) 09/27/16 06:16 Plt Count 181 K/uL (130-400) 09/27/16 06:16 MPV 10.0 fL (7.2-11.7) 09/27/16 06:16 Neut % (Auto) 59.0 % (50.0-75.0) 09/27/16 06:16 Lymph % (Auto) 20.7 % (20.0-40.0) 09/27/16 06:16 [place] % (Auto) 9.6 % (0.0-10.0) 09/27/16 06:16 Eos % (Auto) 9.7 % (0.0-4.0) H 09/27/16 06:16 Baso % (Auto) 1.0 % (0.0-2.0) 09/27/16 06:16 Neut # 5.4 K/uL (1.8-7.0) 09/27/16 06:16 Lymph # 1.9 K/uL (1.0-4.3) 09/27/16 06:16 [place] # 0.9 K/uL (0.0-0.8) H 09/27/16 06:16 Eos # 0.9 K/uL (0.0-0.7) H 09/27/16 06:16 Baso # 0.1 K/uL (0.0-0.2) 09/27/16 06:16 Neutrophils % (Manual) 80 % (50-75) H 09/24/16 00:39 Band Neutrophils % 1 % (0-2) 09/24/16 00:39 Lymphocytes % (Manual) 11 % (20-40) L 09/24/16 00:39 Monocytes % (Manual) 6 % (0-10) 09/24/16 00:39 Eosinophils % (Manual) 1 % (0-4) 09/24/16 00:39 Basophils % (Manual) 1 % (0-2) 09/24/16 00:39 Platelet Estimate Normal (NORMAL) 09/24/16 00:39 RBC Morphology Normal 09/24/16 00:39 PT 14.4 SECONDS (9.7-12.2) H 09/24/16 01:11 INR 1.3 09/24/16 01:11 APTT 30 SECONDS (21-34) 09/24/16 01:11 Sodium 136 mmol/L (132-148) 09/27/16 06:16 Potassium 4.2 mmol/L (3.6-5.2) 09/27/16 06:16 Chloride 103 mmol/L (98-107) 09/27/16 06:16 Carbon Dioxide 25 mmol/L (22-30) 09/27/16 06:16 Anion Gap 13 (10-20) 09/27/16 06:16 BUN 17 mg/dL (9-20) 09/27/16 06:16 Creatinine 1.2 MG/DL (0.8-1.5) 09/27/16 06:16 Est GFR ( Amer) > 60 09/27/16 06:16 Est GFR (Non-Af Amer) 58 09/27/16 06:16 POC Glucose (mg/dL) 143 mg/dL (65-110) H 09/27/16 11:03 Random Glucose 94 mg/dL (75-110) 09/27/16 06:16 Hemoglobin A1c 7.2 % (4.2-6.5) H D 09/25/16 07:09 Calcium 9.0 mg/dl (8.6-10.4) 09/27/16 06:16 Phosphorus 3.3 mg/dL (2.5-4.5) 09/27/16 06:16 Magnesium 1.8 mg/dL (1.6-2.3) 09/27/16 06:16 Total Bilirubin 0.9 mg/dL (0.2-1.3) 09/27/16 06:16 AST 59 U/L (17-59) D 09/27/16 06:16 ALT 39 U/L (21-72) 09/27/16 06:16 Alkaline Phosphatase 119 U/L (38-126) 09/27/16 06:16 Total Protein 8.1 g/dL (6.3-8.3) 09/27/16 06:16 Albumin 3.4 g/dL (3.5-5.0) L 09/27/16 06:16 Globulin 4.6 gm/dL (2.2-3.9) H 09/27/16 06:16 Albumin/Globulin Ratio 0.7 (1.0-2.1) L 09/27/16 06:16 Vitamin B12 588 pg/mL (239-931) 09/25/16 07:09 25-OH Vitamin D Total < 12.8 NG/ML (30.0-100.0) L 09/25/16 07:09 Urine Color Yellow (YELLOW) 09/24/16 08:02 Urine Clarity Clear (Clear) 09/24/16 08:02 Urine pH 5.0 (5.0-8.0) 09/24/16 08:02 Ur Specific [place] 1.018 (1.003-1.030) 09/24/16 08:02 Urine Protein 2+ mg/dL (NEGATIVE) H 09/24/16 08:02 Urine Glucose (UA) Normal mg/dL (Normal) 09/24/16 08:02 Urine Ketones Negative mg/dL (NEGATIVE) 09/24/16 08:02 Urine Blood 1+ (NEGATIVE) H 09/24/16 08:02 Urine Nitrate Negative (NEGATIVE) 09/24/16 08:02 Urine Bilirubin Negative (NEGATIVE) 09/24/16 08:02 Urine Urobilinogen Normal mg/dL (0.2-1.0) 09/24/16 08:02 Ur Leukocyte Esterase Neg Adolfo/uL (Negative) 09/24/16 08:02 Urine WBC (Auto) 1 /hpf (0-5) 09/24/16 08:02 Urine RBC (Auto) 1 /hpf (0-3) 09/24/16 08:02 Ur Squamous Epith Cells < 1 /hpf (0-5) 09/24/16 08:02 Urine Bacteria Few (<OCC) H 09/24/16 08:02 Hyaline Casts 3-5 /lpf (0-2) H 09/24/16 08:02 Attending/Attestation - Attestation I have personally seen and examined this patient.: Yes I have fully participated in the care of the patient.: Yes I have reviewed all pertinent clinical information, including history, physical exam and plan: Yes Notes (Text): Medical attending: Patient was seen and examined by me, agree with the above note by medical services assistant. Today he was similar to the previous day. He is awake he is alert however this time around he did not know where he was at [facility] note the place or time. His mental status seems to wax and wane. There are times when he is very very cognitive and there time such as today when he seems to be very forgetful. He does not appear to be any acute pain or distress when I saw him. He did not appear to be short of breath. I understand sometime today he'll be moved to an assisted living facility. Thank you very much, Chepe Romano
[2016-09-28 11:51] VITALS: BP 118/64; PULSE 81; TEMP 97.7; O2SAT 97
== END 2016-09-27 21:15 | DRG 57 ==
LOC: C.ER 23:54 → C.9E 09-24 05:20 → C.3T 09-24 09:00
PROVIDERS: ADMIT Internal Medicine; ATTEND Internal Medicine
DX: G20 Parkinson's disease (principal); E11.40 Type 2 diabetes mellitus with diabetic neuropathy, unspecified; I11.0 Hypertensive heart disease with heart failure; I50.9 Heart failure, unspecified; E11.69 Type 2 diabetes mellitus with other specified complication; I73.9 Peripheral vascular disease, unspecified; W19.XXXA Unspecified fall, initial encounter; F02.80 Dementia in other diseases classified elsewhere, unspecified severity, without behavioral disturbance, psychotic disturbance, mood disturbance, and anxiety; E78.5 Hyperlipidemia, unspecified; R29.6 Repeated falls; M19.90 Unspecified osteoarthritis, unspecified site; S59.801A Other specified injuries of right elbow, initial encounter; S59.802A Other specified injuries of left elbow, initial encounter

== ENCOUNTER 2016-11-30 09:47 | Inpatient (IN) | payer MEDICARE, OTHER ==
[2016-11-30 09:55] VITALS: BMI 28.3
[2016-11-30 10:31] LABS: BASO # 0.1 K/uL (0.0-0.2); BASO % 1.1 % (0.0-2.0); EOS # 0.1 K/uL (0.0-0.7); EOS % 0.5 % (0.0-4.0); HEMATOCRIT 37.6 % (35.0-51.0); LYMPH # 1.1 K/uL (1.0-4.3); MEAN CELL VOLUME 94.7 fL (80.0-94.0); MEAN CORPUSCULAR HEMOGLOBIN 32.5 pg (27.0-31.0); MEAN CORPUSCULAR HGB CONC 34.4 g/dL (33.0-37.0); MEAN PLATELET VOLUME 10.7 fL (7.2-11.7); MONO # 1.1 K/uL (0.0-0.8); MONO % 10.1 % (0.0-10.0); RED CELL DISTRIBUTION WIDTH 14.9 % (11.5-14.5); WHITE BLOOD COUNT 10.8 K/uL (4.8-10.8)
[2016-11-30 10:39] LABS: INR 1.3
[2016-11-30 10:42] LABS: POTASSIUM 4.5 mmol/L (3.6-5.2)
[2016-11-30 10:44] LABS: VENOUS BLOOD GAS BASE EXCESS -9.2 mmol/L (0.0-2.0); VENOUS BLOOD GAS PCO2 28 mmHg (40-60); VENOUS BLOOD PH 7.34 (7.32-7.43)
[2016-11-30 10:44] LABS: ALB/GLOB RATIO 0.8 (1.0-2.1); BILIRUBIN,TOTAL 1.3 mg/dL (0.2-1.3); TOTAL PROTEIN 9.4 g/dL (6.3-8.3)
[2016-11-30 10:45] LABS: CALCIUM 9.4 mg/dl (8.6-10.4); MAGNESIUM 2.1 mg/dL (1.6-2.3); PHOSPHOROUS 4.1 mg/dL (2.5-4.5)
--- NOTE | 2016-11-30 10:48 | C.PDOC ---
History Of Present Illness 86 year old male with a history of CHF, HTN, Parkinson's Disease, and high cholestrol was brought to the ED by niece for evaluation of difficulty with ability to stand and "not being himself." As per niece, patient lives alone, uses a walker, and is checked on by niece every 2-3 days. Niece states patient did not recognize niece today, was covered in urine, not answering questions appropriately, unable to stand, and "not being himself." She denies fever. Patient was seen right away on arrival and sepsis work up was ordered. Time Seen by Provider: 11/30/16 10:05 Chief Complaint (Nursing): Altered Mental Status History Per: Family History/Exam Limitations: Clinical Condition (patient's mental status ) Onset/Duration Of Symptoms: Unknown Onset Of Symptoms: Cannot Confirm Onset Current Symptoms Are (Timing): Still Present Exacerbating Factor(s): denies: Fever Use Of Anticoag/Antiplatelets: No Recent travel outside of the [place]: No Additional History Per: Patient Associated Symptoms: denies: Fever Past Medical History Reviewed: Historical Data, Nursing Documentation, Vital Signs Vital Signs: Last Vital Signs Temp 98.1 F 11/30/16 10:36 Pulse 79 11/30/16 12:15 Resp 19 11/30/16 12:15 BP 158/77 H 11/30/16 12:15 Pulse Ox 100 11/30/16 12:43 - Medical History PMH: CHF, HTN, Hypercholesterolemia, Parkinson's Disease Family History: States: Unknown Family Hx - Social History Hx Tobacco Use: No Hx Alcohol Use: Yes Hx Substance Use: No - Immunization History Hx Tetanus Toxoid Vaccination: Yes Hx Influenza Vaccination: Yes Hx Pneumococcal Vaccination: Yes Review Of Systems Review Of Systems: ROS cannot be obtained secondary to pt's inabilty to answer questions. (due to patient's mental status) Physical Exam - Physical Exam Appears: Non-toxic, Other (Patient smells of urine. Patient is not decubitus.) Skin: Warm, Dry, No Rash, Other (No abrasions or lacerations. No signs of infection ) Head: Atraumatic, Normacephalic Eye(s): bilateral: Normal Inspection, PERRL, EOMI Oral Mucosa: Dry Neck: Supple Chest: Symmetrical, No Deformity Cardiovascular: Rhythm Regular, No Murmur Respiratory: Normal Breath Sounds, No Rales, No Rhonchi, No Wheezing Gastrointestinal/Abdominal: Soft, No Tenderness, No Distention, No Guarding, No Rebound Neurological/Psych: No Oriented x3 (Patient is not answering questions reasonably ) ED Course And Treatment - Laboratory Results Result Diagrams: 11/30/16 10:27 11/30/16 10:27 ECG: Interpreted By Me, Viewed By Me ECG Rhythm: Sinus Rhythm Rate From EC O2 Sat by Pulse Oximetry: 100 (room air ) - Radiology CXR: Viewed By Me, Read By Radiologist CXR Interpretation: Yes: Other (Small opacity or infiltrate at the left lower lobe may represent pneumonia or atelectasis. Blunting of the left costophrenic angle.) Progress Note: VBG, EKG, CXR, and labs were ordered. Patient was given IV fluids. - Physician Consult Information Time Consulting Physician Contacted: 12:47 Physician Contacted: Regina Sorensen Outcome Of Conversation: Discussed case with Dr. Sorensen and agrees to admission to their service. Medical Decision Making Medical Decision Making: Upon arrival, sepsis work up was performed. Patient's lactate was unremarkable. Multiple calls to Dr. Matthews. Left message on [employer], pending call back. Dr. Matthews called back at 12:47pm. Spoke with PMD, agrees to admission for AMS Disposition Discussed With .: Regina Sorensen Doctor Will See Patient In The: Hospital Counseled Patient/Family Regarding: Studies Performed - Disposition Disposition: HOSPITALIZED Disposition Time: 12:41 Condition: SERIOUS Forms: [facility] (British) - Clinical Impression Clinical Impression: Altered mental status - Scribe Statement The provider has reviewed the documentation as recorded by the Scribe Katheryn Alvarado All medical record entries made by the Scribe were at my direction and personally dictated by me. I have reviewed the chart and agree that the record accurately reflects my personal performance of the history, physical exam, medical decision making, and the department course for this patient. I have also personally directed, reviewed, and agree with the discharge instructions and disposition. Decision To Admit - Pt Status Changed To: Hospital Disposition Of: Inpatient - Admit Certification Admit to Inpatient:: After my assessment, the patient will require hospitalization for at least two midnights. This is because of the severity of symptoms shown, intensity of services needed, and/or the medical risk in this patient being treated as an outpatient. - InPatient: Physician Admission Certification:: AMS - . Bed Request Type: Telemetry Patient Diagnosis: Altered mental status
[2016-11-30 10:56] LABS: TROPONIN I 0.02 ng/mL (0.00-0.120)
[2016-11-30 11:25] LABS: RBC URINE 6 /hpf (0-3); URINE BACTERIA RARE (<OCC); URINE BILIRUBIN NEGATIVE (NEGATIVE); URINE BLOOD 1+ (NEGATIVE); URINE COLOR Yellow (YELLOW); URINE GLUCOSE (UA) NORMAL (Normal); URINE KETONE 1+ mg/dL (NEGATIVE); URINE LEUKOCYTE ESTERASE NEG Leu/uL (Negative); URINE PROTEIN 2+ mg/dL (NEGATIVE); URINE UROBILINOGEN NORMAL mg/dL (0.2-1.0); WBC URINE 3 /hpf (0-5)
[2016-11-30] MEDS ORDERED: Sodium Chloride 0.9% 500 ML IV ONE ×2 (11:31→13:34)
--- NOTE | 2016-11-30 12:53 | RAD ---
HISTORY: Sepsis Patient COMPARISON: Comparison is made to 09/24/2016 FINDINGS: LUNGS: Heterogeneous opacity or infiltrate at the left retrocardiac region of the left lower lobe may represent atelectasis or pneumonia. PLEURA: Blunting of the left costophrenic angle. CARDIOVASCULAR: Normal. OSSEOUS STRUCTURES: No significant abnormalities. VISUALIZED UPPER ABDOMEN: Normal. OTHER FINDINGS: None. IMPRESSION: Small opacity or infiltrate at the left lower lobe may represent pneumonia or atelectasis. Blunting of the left costophrenic angle.
[2016-11-30] MEDS ORDERED: Sodium Chloride 0.45% 1,000 ML IV ONE (13:39)
[2016-11-30] MEDS ORDERED: Sodium Chloride 0.9% 50 ML IV ONE (13:39)
--- NOTE | 2016-11-30 14:06 | CT ---
PROCEDURE: CT HEAD WITHOUT CONTRAST. HISTORY: altered mental status COMPARISON: Comparison is made to 09/24/2016 TECHNIQUE: Axial computed tomography images were obtained through the head/brain without intravenous contrast. Radiation dose: Total exam DLP = 1033.73 mGy-cm. This CT exam was performed using one or more of the following dose reduction techniques: Automated exposure control, adjustment of the mA and/or kV according to patient size, and/or use of iterative reconstruction technique. FINDINGS: HEMORRHAGE: No intracranial hemorrhage. BRAIN: No mass effect or edema. [id number] atrophy and moderate white matter changes suggestive but nonspecific for chronic microvascular ischemic disease are again noted. VENTRICLES: Unremarkable. No hydrocephalus. CALVARIUM: Unremarkable. PARANASAL SINUSES: Unremarkable as visualized. No significant inflammatory changes. MASTOID AIR CELLS: Unremarkable as visualized. No inflammatory changes. OTHER FINDINGS: None. IMPRESSION: No evidence of acute intracranial hemorrhage intracranial collection mass effect or midline shift. Moderate atrophy and moderate chronic microvascular white matter ischemic disease again noted.
[2016-11-30] MEDS: Sodium Chloride 0.45% 1,000 ML IV SCH ×2 (15:50→21:15)
--- NOTE | 2016-11-30 16:20 | CP.PCM.HP ---
History of Present Illness - History of Present Illness History of Present Illness: CC; Mental status changes HPI; Mr. Garcia is an 86 year old male who lives alone. He has Parkinsons. His niece who checks on him regularly has not been able to contact him for the last 48 hours. She decided to come to his [place] and found him on the floor, confused, on a pool of urine. Pt has refused to live with any one or go to a assisted. Pt however has a very slow shuffling gate due to Parkinson's disease. He was recently started on meds for Parkisons. At home nieced stated he was not coherent. Patient was brought to the ER for evaluation. In the Er vitals has been stable with no temp. He was given one bolus of NS> Allergy; social; lives alone, has teacher home therapy no tobacco PMHX diabetes Parkisons Hth Hypercholesterolemia PSH meds as per nurses note asa ruthie inhibitor sulfonylurea Present on Admission - Present on Admission Any Indicators Present on Admission: No History of DVT/PE: No History of Uncontrolled Diabetes: No Urinary Catheter: No Decubitus Ulcer Present: No Review of Systems - Review of Systems Systems not reviewed;Unavailable: Altered Mental Status - Constitutional Constitutional: Frequent Falls. absent: Anorexia, Chills, Fever - Cardiovascular Cardiovascular: absent: Chest Pain at Rest, Orthopnea, Palpitations - Gastrointestinal Gastrointestinal: absent: Fecal Incontinence (nurse in ER informed me straight cath of bladder yield arround 500 cc) Past Patient History - Infectious Disease Hx of Infectious Diseases: None - Past Medical History & Family History Past Medical History?: Yes - Past Social History Smoking Status: Never Smoked - CARDIAC Hx Cardiac Disorders: No (none) Hx Congestive Heart Failure: No Hx Hypercholesterolemia: Yes Hx Hypertension: Yes - NEUROLOGICAL Hx Parkinson's Disease: Yes - HEENT 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) Hx Cataracts: Yes - ENDOCRINE/METABOLIC Hx Diabetes Mellitus Type 2: Yes - MUSCULOSKELETAL/RHEUMATOLOGICAL Hx Falls: Yes - PSYCHIATRIC Hx Substance Use: No - SURGICAL HISTORY Hx Surgeries: Yes (right ankle surgery, bilateral eye surgeries) - ANESTHESIA Hx Anesthesia: Yes Hx Anesthesia Reactions: No Meds Allergies/Adverse Reactions: Allergies Allergy/AdvReac Type Severity Reaction Status Date / Time No Known Allergies Allergy Verified 09/24/16 00:01 Physical Exam - Constitutional Appears: Confused - Head Exam Head Exam: ATRAUMATIC, NORMAL INSPECTION - Eye Exam Eye Exam: EOMI, Normal appearance. absent: Nystagmus, Scleral icterus - ENT Exam ENT Exam: Mucous Membranes Dry - Respiratory Exam Respiratory Exam: Clear to Auscultation Bilateral, NORMAL BREATHING PATTERN - Cardiovascular Exam Cardiovascular Exam: RRR, +S1, +S2. absent: Clicks, Diastolic murmur, Gallop, + S4, Systolic Murmur - GI/Abdominal Exam GI & Abdominal Exam: Soft. absent: Distended, Firm, Guarding, Rebound, Tenderness - Rectal Exam Rectal Exam: Deferred - Extremities Exam Extremities exam: Positive for: normal inspection. Negative for: calf tenderness, pedal edema Results - Vital Signs Recent Vital Signs: Last Vital Signs Temp 98.1 F 11/30/16 10:36 Pulse 79 11/30/16 12:15 Resp 19 11/30/16 12:15 BP 158/77 H 11/30/16 12:15 Pulse Ox 100 11/30/16 13:00 - Labs Result Diagrams: 11/30/16 10:27 12/03/16 07:51 Assessment & Plan - Assessment and Plan (Free Text) Assessment: 86 year old with mental status changes, parkinsons and high risk of fall 1. dehydration 2. pre renal azotemia; will check base line creat 3. parkinson 4. possible that he felt and just could not get up 5. diabetes 6. ho htn admit hydrate ct of head rule out infection cultures done in ER swallow eval neuro eval for parkinsons meds will need to discuss placement with family
[2016-12-01] MEDS: Sodium Chloride 0.45% 1,000 ML IV SCH ×4 (01:42→22:05)
[2016-12-01 08:21] LABS: CHLORIDE 108 mmol/L (98-107); POTASSIUM 3.8 mmol/L (3.6-5.2); SODIUM 139 mmol/L (132-148)
[2016-12-01 08:23] LABS: CARBON DIOXIDE 21 mmol/L (22-30); GFR AFRICAN-AMERICAN > 60
[2016-12-01 08:24] LABS: BLOOD UREA NITROGEN 41 mg/dL (9-20); CALCIUM 8.8 mg/dl (8.6-10.4); GLUCOSE,RANDOM 103 mg/dL (75-110)
--- NOTE | 2016-12-01 10:24 | RAD ---
HISTORY: Repeat - comparison COMPARISON: No prior. FINDINGS: LUNGS: Comparison is made to 11/30/2016 PLEURA: No significant pleural effusion identified, no pneumothorax apparent. CARDIOVASCULAR: Normal. OSSEOUS STRUCTURES: No significant abnormalities. VISUALIZED UPPER ABDOMEN: Normal. OTHER FINDINGS: None. IMPRESSION: No significant interval change in the lungs since the previous study.
--- NOTE | 2016-12-01 16:27 | CP.PCM.PN ---
Subjective - Date & Time of Evaluation Date of Evaluation: 12/01/16 Time of Evaluation: 06:24 - Subjective Subjective: Pt is more awake, able to follow commands. Speech however is not cleare. Pt mood is at baseline. Spoke to nurse, no issues reported. Awating for swallow eval to initiate diet. Objective - Vital Signs/Intake and Output Vital Signs (last 24 hours): Temp Pulse Resp BP Pulse Ox 98 F 80 20 154/67 H 100 12/01/16 07:00 12/01/16 07:30 12/01/16 07:00 12/01/16 07:00 12/01/16 07:00 Intake and Output: 12/01/16 12/01/16 06:59 18:59 Intake Total 750 1000 Balance 750 1000 - Medications Medications: Current Medications Amantadine HCl (Amantadine 100 Mg Cap) 100 mg PO BID [facility] Aspirin (Aspirin Chewable) 81 mg PO DAILY [facility] Famotidine (Pepcid) 20 mg IVP Q12 [facility] Last Admin: 12/01/16 09:33 Dose: 20 mg Folic Acid (Folic Acid) 1 mg PO DAILY [facility] Heparin Sodium (Porcine) (Heparin) 5,000 units SC Q8 [facility] Last Admin: 12/01/16 13:52 Dose: 5,000 units Sodium Chloride (Sodium Chloride 0.45%) 1,000 mls @ 125 mls/hr IV .Q8H [facility] Last Admin: 12/01/16 13:15 Dose: 125 mls/hr Lisinopril (Zestril) 5 mg PO DAILY [facility] Rosuvastatin Calcium (Crestor) 10 mg PO HS [facility] - Labs Labs: 12/01/16 07:45 PT 14.7 SECONDS (9.7-12.2) H 11/30/16 10:27 INR 1.3 11/30/16 10:27 APTT 32 SECONDS (21-34) 11/30/16 10:27 - Constitutional Appears: Non-toxic - Head Exam Head Exam: ATRAUMATIC - Eye Exam Eye Exam: EOMI - ENT Exam ENT Exam: Mucous Membranes Moist - Respiratory Exam Respiratory Exam: Clear to Ausculation Bilateral. absent: Accessory Muscle Use - GI/Abdominal Exam GI & Abdominal Exam: absent: Distended, Guarding, Rebound - Extremities Exam Extremities Exam: absent: Pedal Edema Additional comments: able to raise arms above head, able to raise feet off bed but not much Assessment and Plan - Assessment and Plan (Free Text) Assessment: Dehydration pre renal azotemia parkisons lives alone cont hydration creat down to 1.3 awaiting for speech swallow for eval before starting meds and diet neuro consulted cont Amantidine Social will nee to evalutate home situration as he has been refusing placment reviwed cxr ; no evidence of infection so far.
--- NOTE | 2016-12-02 03:16 | CON ---
NEUROLOGY CONSULTATION DATE: ATTENDING PHYSICIAN: Regina Sorensen MD. REASON FOR CONSULTATION: Worsening mental state. HISTORY OF PRESENT ILLNESS: The patient is an 86 years old male with past medical history of CHF, hypertension, Parkinson's disease, and hyperlipidemia brought to the emergency department by me for evaluation for difficulty ambulating. The patient was at rehab and did discharge home without funeral home assistant. The niece visiting him every two to three days and she found him on the floor the day of admission and while having urine incontinence, covered with the urine and he was confused as per the niece and unable to stand, although the patient is able to take care of himself independently and he was confused and unable to give any further history during my examination. The patient also is severely dysarthric, this is his baseline and hypophonic as per niece as well. The patient was diagnosed by his primary care physician with Parkinson's disease and has an appointment with a neurologist in three weeks, but the niece did not know exactly who is the neurologist. The patient was started on amantadine three weeks ago. PAST MEDICAL HISTORY: As mentioned above. SOCIAL HISTORY: Nonsmoker and an ethanol drug abuser. MEDICATIONS: Lisinopril, amantadine 100 mg b.i.d., Crestor, glimepiride, aspirin, and Tylenol. REVIEW OF SYSTEMS: As per H and P and ER notes reviewed. PHYSICAL EXAMINATION: VITAL SIGNS: Blood pressure 158/77, pulse 79, respirations 19, and temperature 98.1. MENTAL STATUS EXAMINATION: The patient is alert, awake, and disoriented to person, time, and place. The patient is significantly hypophonic and dysarthric, but as per niece, we saw him this morning, she stated that he knew her, he recognized her and asked her to go home. The patient is able to follow one-step command with efforts, although no squeezing the fingers, just closing the eyes and lifting his arms against the gravity. MOTOR: Slightly increased tone in bilateral upper extremities, but no cogwheel rigidity or spasticity. The patient is able to lift his arms against gravity symmetrically and response to noxious stimuli in the lower extremity symmetrically. No focal motor asymmetry. Deep tendon reflexes 1 to 2 in upper and lower extremities. Plantar flexion on both sides. CRANIAL NERVES: Pupils are symmetric and reactive. No facial asymmetry. No field defect. Difficult to asses the psychotic and pursue eye movement. The patient is not cooperative. There is muscle wasting in temporalis and facial muscles. SENSORY: Symmetrical. The patient withdraw his extremity symmetrically. IMAGING: I have reviewed the CAT scan of the brain diffuse frontal, temporal, parietal, and occipital atrophy and compensatory dilatation of the ventricle secondary to the atrophy. LABORATORY DATA: White blood cell is 10.8, red blood cell is 3.98, hemoglobin 12.9, hematocrit 37.6, and MCV 94.7. Sodium 140, potassium 4.5, chloride 106, carbon dioxide 19, anion gap 20, BUN 39, creatinine 0.6, alkaline phosphatase 148, and BNP 1130. Chest x-ray; small opacification or infiltrate of the left lower lobe may represent pneumonia or atelectasis, of the left costophrenic angle. Repeat chest x-ray did not reveal significant changes compared to the first chest x-ray. IMPRESSION AND PLAN: Worsening mental state most likely secondary to combination of dehydration and the possibility of septic hypoxic etiology because of the possible pneumonia, cannot be excluded, underlying dementia highly likely because of the significant diffuse brain atrophy and history of Parkinson's disease. The patient should be started empirically on Sinemet 10/100 three times a day. I would discontinue amantadine because of possibility of change in mental state with amantadine with elderly physical therapy at bedside. The patient needs a funeral home assistant. The patient cannot live alone by himself and the patient's niece is visiting him every two to three days. The patient need a neurological evaluation after discharge when his chronic confusion improves at least get further history from the patient. Above was discussed with the niece at length to follow up neurologist. I have given her Dr. Alicea's number. Thank you for the consultation and Dr. Alicea will follow up with the patient tomorrow. Evangelist Ruvalcaba MD
[2016-12-02] MEDS: Sodium Chloride 0.45% 1,000 ML IV SCH ×3 (05:22→21:50)
[2016-12-02 07:12] LABS: THYROID STIMULATING HORMONE 2.28 mIU/L (0.46-4.68)
[2016-12-02 07:43] LABS: FREE T4 1.91 ng/dL (0.78-2.19)
[2016-12-02] MEDS: cefTRIAXone IV 1 gm in Dextros 50 ML IVPB SCH (10:45)
--- NOTE | 2016-12-02 13:01 | PN ---
NEUROLOGICAL FOLLOWUP EVALUATION DATE: 12/02/16 ATTENDING PHYSICIAN: Regina Sorensen MD LOCATION: The patient is in room #652, bed A. REASON FOR THE CONSULTATION: 1. Change in mental status. 2. History of Parkinson disease. CHIEF COMPLAINT: The patient was brought in by family members with history of change in mental status and he was found on the floor from the rehab. He was covered with urine and he was found to be confused as per his family members. The patient also found to be dysarthric and low voice. The patient was seen and evaluated by Dr. Ruvalcaba yesterday. PAST MEDICAL HISTORY: History of hypertension, CHF, Parkinson disease. PERSONAL HISTORY: No smoking or alcohol use. MEDICATIONS: He is on amantadine, Crestor, glyburide, aspirin, and Tylenol. (No medications for Parkinson disease.) PHYSICAL EXAMINATION VITAL SIGNS: Blood pressure 131/61, mean arterial pressure of 84, respiratory rate 16, temperature 98.8, pulse rate 77 and regular. NEUROLOGIC: He is sleepy and arousable verbally as well as noxious stimuli. On forcibly opening of the eyelid, disconjugate gaze noted. Pupils reactive to light. Extraocular movements, some rolling conjugate; however, both are disconjugate. Corneal reflux is well preserved on the right side, left side is decreased. Significant bulbar dysfunction. Tone increased on his left more than his right side. Plantar's are upgoing on both sides. Deep tendon reflexes are absent. LABORATORY DATA: Workup; CT of the head reviewed by me showed atrophy with small vessel disease. No acute infarct noted. Sodium 139, potassium 1.8, bicarbonate 21, BUN 21, creatinine 1.3, glucose 103, calcium 8.8. WBC 10.8, hemoglobin 12.9, hematocrit 37.6, platelets 218. CONCLUSION: Mr. Tr Garcia has been presenting with change in mental status, severe dysarthria, and bulbar dysfunction. On examination showed disconjugate gaze consistent with brain stem ischemic process versus brainstem dysfunction probably ischemic process considering his risk factors; however, other possible causes of metabolic and infectious process should be ruled out. 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 RECOMMENDATIONS: 1. Unwanted medication should be discontinued. At this point, amantadine has no role. I would like to discontinue because of medically he is unstable. 2. Though, he is not on dopa, he is not having any signs of Parkinson disease. At this point, I do not think he has a Parkinson disease. I would like to hold on dopa for now. 3. MRI of the brain to be done to rule out any acute ischemic process. 4. I agree with n.p.o. with swish and swallow evaluation and address the issue to be corrected. 5. DVT prophylaxis should be continued. 6. The patient can get aspirin. 7. The patient will be followed closely with you. Hugo Alicea MD
--- NOTE | 2016-12-02 16:11 | CP.PCM.PN ---
Subjective - Date & Time of Evaluation Date of Evaluation: 12/02/16 Time of Evaluation: 16:11 - Subjective Subjective: Pt with no complaints. I spoke to niece and stays he is now at base line Pt had swqllow eval today one set of cultures came back positive Objective - Vital Signs/Intake and Output Vital Signs (last 24 hours): Temp Pulse Resp BP Pulse Ox 97.6 F 79 18 145/74 100 12/02/16 07:20 12/02/16 07:20 12/02/16 07:20 12/02/16 07:20 12/02/16 07:20 Intake and Output: 12/02/16 12/02/16 06:59 18:59 Intake Total 2000 Output Total 800 Balance 1200 - Medications Medications: Current Medications Aspirin (Aspirin Chewable) 81 mg PO DAILY [facility] Last Admin: 12/02/16 10:00 Dose: Not Given Famotidine (Pepcid) 20 mg IVP Q12 [facility] Last Admin: 12/02/16 10:43 Dose: 20 mg Folic Acid (Folic Acid) 1 mg PO DAILY [facility] Last Admin: 12/02/16 10:00 Dose: Not Given Glimepiride (Amaryl) 4 mg PO BID [facility] Heparin Sodium (Porcine) (Heparin) 5,000 units SC Q8 [facility] Last Admin: 12/02/16 10:00 Dose: Not Given Sodium Chloride (Sodium Chloride 0.45%) 1,000 mls @ 125 mls/hr IV .Q8H [facility] Last Admin: 12/02/16 13:15 Dose: 125 mls/hr Ceftriaxone Sodium (Rocephin Iv 1 Gm Duplex) 50 mls @ 100 mls/hr IVPB DAILY [facility] Last Admin: 12/02/16 10:45 Dose: 100 mls/hr Lisinopril (Zestril) 5 mg PO DAILY [facility] Last Admin: 12/02/16 10:00 Dose: Not Given Rosuvastatin Calcium (Crestor) 10 mg PO HS [facility] - Labs Labs: 12/01/16 07:45 PT 14.7 SECONDS (9.7-12.2) H 11/30/16 10:27 INR 1.3 11/30/16 10:27 APTT 32 SECONDS (21-34) 11/30/16 10:27 - Constitutional Appears: Well - Eye Exam Eye Exam: EOMI - ENT Exam ENT Exam: Mucous Membranes Moist - Respiratory Exam Respiratory Exam: Clear to Ausculation Bilateral - Extremities Exam Extremities Exam: absent: Pedal Edema Assessment and Plan - Assessment and Plan (Free Text) Plan: 1. blood culture one set positive ceftriazone 2. creat; better cont fluids one more day 3. bp cont meds 4. diet now on diet added diabetic meds spoke to family will send to rehab
[2016-12-03] MEDS: Sodium Chloride 0.45% 1,000 ML IV SCH ×2 (07:00→15:00)
[2016-12-03 08:25] LABS: CHLORIDE 108 mmol/L (98-107)
[2016-12-03 08:26] LABS: POTASSIUM 3.4 mmol/L (3.6-5.2); SODIUM 140 mmol/L (132-148)
[2016-12-03 08:28] LABS: GFR AFRICAN-AMERICAN > 60
[2016-12-03 08:29] LABS: BLOOD UREA NITROGEN 17 mg/dL (9-20); CALCIUM 8.8 mg/dl (8.6-10.4); CARBON DIOXIDE 25 mmol/L (22-30); GLUCOSE,RANDOM 71 mg/dL (75-110)
--- NOTE | 2016-12-03 09:22 | PN ---
DATE: 12/03/2016 NEUROLOGICAL PROBLEM: Change in mental status. PHYSICAL EXAMINATION: VITAL SIGNS: Blood pressure 134/68, mean arterial pressure of 90, respiratory rate of 16, temperature afebrile, and pulse rate 83. NEUROLOGIC: The patient is awake with eyes open and noncommunicable. He moves upper extremities spontaneously. Extraocular movement, some rolling conjugate gaze present and respond to corneal reflex. Poor bulbar dysfunction. ASSESSMENT AND PLAN: The patient does not show any evidence of Parkinson's disease. The patient is off amantadine as well as Doppler. The patient is scheduled to have MRI of the brain to rule out any ischemic process. Speech and swallow evaluation. Keep him on aspiration precaution and deep venous thrombosis prophylaxis. The patient will be followed while he is in the hospital. Hugo Alicea MD
[2016-12-03] MEDS: cefTRIAXone IV 1 gm in Dextros 50 ML IVPB SCH (10:00)
--- NOTE | 2016-12-03 12:32 | MRI ---
PROCEDURE: MRI BRAIN WITHOUT CONTRAST HISTORY: brain stem stroke COMPARISON: Brain MRI 08/16/2015 as [address] as head CT 11/30/2016. TECHNIQUE: Multiplanar, multisequence MR images of the brain were obtained without intravenous contrast enhancement. FINDINGS: HEMORRHAGE: None DWI: No evidence of an acute or early subacute infarction. BRAIN PARENCHYMA: Expanded CSF spaces again appreciate including the ventricular system mildly, with white-matter changes in the periventricular and subcortical space of the cerebrum diffusely noted once again. Both could are compatible with diffuse cerebral atrophy and chronic microangiopathy. There is no interval suspicious extra-axial fluid collection appreciated. Images through the brainstem appears stable. The craniocervical junction appears intact. VENTRICLES: Unremarkable. No hydrocephalus. CRANIUM: Unremarkable. ORBITS: Grossly unremarkable. PARANASAL SINUSES/MASTOIDS: Mucosal inflammatory changes are seen affecting the bilateral frontal and ethmoid sinuses mildly. VASCULAR SYSTEM: Skull base flow voids intact. OTHER FINDINGS: None. IMPRESSION: Stable unenhanced brain MRI with no suspicious acute findings appreciable including infarction above or below the tentorium or within the brainstem specifically. There is no mass effect. Reiterated age related neuro degenerative changes are identified primarily throughout the cerebrum.
--- NOTE | 2016-12-03 16:16 | CP.PCM.PN ---
Subjective - Date & Time of Evaluation Date of Evaluation: 12/03/16 Time of Evaluation: 16:14 - Subjective Subjective: PT lethargic as he recently received meds for MRI,but per nurse he has been well. Pt has been eating well. great appetite per nurse. pt did not get PT today as was lethargic form benzo. PT sent to MRi by neuro. no other issues overnight. Objective - Vital Signs/Intake and Output Vital Signs (last 24 hours): Temp Pulse Resp BP Pulse Ox 97.3 F L 73 20 158/75 H 100 12/03/16 15:00 12/03/16 15:00 12/03/16 15:00 12/03/16 15:00 12/03/16 15:00 - Medications Medications: Current Medications Aspirin (Aspirin Chewable) 81 mg PO DAILY [facility] Last Admin: 12/03/16 09:18 Dose: 81 mg Famotidine (Pepcid) 20 mg IVP Q12 [facility] Last Admin: 12/03/16 09:21 Dose: 20 mg Folic Acid (Folic Acid) 1 mg PO DAILY [facility] Last Admin: 12/03/16 09:18 Dose: 1 mg Glimepiride (Amaryl) 4 mg PO BID [facility] Last Admin: 12/03/16 09:18 Dose: 4 mg Heparin Sodium (Porcine) (Heparin) 5,000 units SC Q8 [facility] Last Admin: 12/03/16 15:00 Dose: 5,000 units Sodium Chloride (Sodium Chloride 0.45%) 1,000 mls @ 125 mls/hr IV .Q8H [facility] Last Admin: 12/03/16 15:00 Dose: 125 mls/hr Ceftriaxone Sodium (Rocephin Iv 1 Gm Duplex) 50 mls @ 100 mls/hr IVPB DAILY [facility] Last Admin: 12/03/16 10:00 Dose: 100 mls/hr Potassium Chloride (Potassium Chloride 20 Meq/100 Ml) 20 meq in 100 mls @ 50 mls/hr IVPB ONCE ONE Stop: 12/03/16 18:08 Lisinopril (Zestril) 5 mg PO DAILY [facility] Last Admin: 12/03/16 09:18 Dose: 5 mg Rosuvastatin Calcium (Crestor) 10 mg PO HS [facility] Last Admin: 12/02/16 21:49 Dose: 10 mg - Labs Labs: 11/30/16 10:27 12/03/16 07:51 PT 14.7 SECONDS (9.7-12.2) H 11/30/16 10:27 INR 1.3 11/30/16 10:27 APTT 32 SECONDS (21-34) 11/30/16 10:27 - Constitutional Appears: No Acute Distress - ENT Exam ENT Exam: Mucous Membranes Moist - Respiratory Exam Respiratory Exam: Clear to Ausculation Bilateral, NORMAL BREATHING PATTERN. absent: Accessory Muscle Use, Respiratory Distress - Cardiovascular Exam Cardiovascular Exam: RRR - Extremities Exam Extremities Exam: Normal Inspection Assessment and Plan - Assessment and Plan (Free Text) Plan: 1, mental status at base line ( before benzo) parkinsons amantidine being evalutated by neuro will check MRi ____ G+cocci in blood no fever on IV abnx dehydration; resolved creat much better dc iv eaing well replaced lytes will need subacute rehab
--- NOTE | 2016-12-03 22:44 | CARD ---
APPROVED REPORT EKG Measurement Heart [id number] <Conclusion> Normal sinus rhythm Normal ECG
[2016-12-04 07:54] VITALS: TEMP 97.6
[2016-12-04] MEDS: cefTRIAXone IV 1 gm in Dextros 50 ML IVPB SCH (11:00)
--- NOTE | 2016-12-04 15:02 | CP.PCM.DIS ---
Provider - Provider Date of Admission: 11/30/16 12:42 Attending physician: Regina Sorensen MD Time Spent in preparation of Discharge (in minutes): 30 Diagnosis - Discharge Diagnosis (1) Altered mental status Status: Resolved Hospital Course - Lab Results Lab Results: Micro Results 11/30/16 22:10 Blood Blood Culture - Final Coagulase Neg Staphylococcus 11/30/16 22:10 Blood Gram Stain - Final 11/30/16 09:45 Blood S.aureus & Coag-Neg Staph PNA FISH - Preliminary 11/30/16 09:45 Blood Blood Culture - Final Coagulase Neg Staphylococcus 11/30/16 09:45 Blood Gram Stain - Final 11/30/16 11:16 Urine Urine Culture - Final No Growth (<1,000 CFU/ML) Most Recent Lab Values WBC 10.8 K/uL (4.8-10.8) 11/30/16 10:27 RBC 3.98 Mil/uL (4.40-5.90) L 11/30/16 10:27 Hgb 12.9 g/dL (12.0-18.0) 11/30/16 10:27 Hct 37.6 % (35.0-51.0) 11/30/16 10:27 MCV 94.7 fL (80.0-94.0) H 11/30/16 10:27 MCH 32.5 pg (27.0-31.0) H 11/30/16 10:27 MCHC 34.4 g/dL (33.0-37.0) 11/30/16 10:27 RDW 14.9 % (11.5-14.5) H 11/30/16 10:27 Plt Count 218 K/uL (130-400) 11/30/16 10:27 MPV 10.7 fL (7.2-11.7) 11/30/16 10:27 Neut % (Auto) 78.3 % (50.0-75.0) H 11/30/16 10:27 Lymph % (Auto) 10.0 % (20.0-40.0) L 11/30/16 10:27 [place] % (Auto) 10.1 % (0.0-10.0) H 11/30/16 10:27 Eos % (Auto) 0.5 % (0.0-4.0) 11/30/16 10:27 Baso % (Auto) 1.1 % (0.0-2.0) 11/30/16 10:27 Neut # 8.5 K/uL (1.8-7.0) H 11/30/16 10:27 Lymph # 1.1 K/uL (1.0-4.3) 11/30/16 10:27 Drew # 1.1 K/uL (0.0-0.8) H 11/30/16 10:27 Eos # 0.1 K/uL (0.0-0.7) 11/30/16 10:27 Baso # 0.1 K/uL (0.0-0.2) 11/30/16 10:27 ESR 113 mm/hr (0-15) H 12/02/16 06:16 PT 14.7 SECONDS (9.7-12.2) H 11/30/16 10:27 INR 1.3 11/30/16 10:27 APTT 32 SECONDS (21-34) 11/30/16 10:27 pO2 53 mm/Hg (30-55) 11/30/16 10:40 VBG pH 7.34 (7.32-7.43) 11/30/16 10:40 VBG pCO2 28 mmHg (40-60) L 11/30/16 10:40 VBG HCO3 17.4 mmol/L 11/30/16 10:40 VBG Total CO2 16.0 mmol/L (22-28) L 11/30/16 10:40 VBG O2 Sat (Calc) 91.3 % (40-65) H 11/30/16 10:40 VBG Base Excess -9.2 mmol/L (0.0-2.0) L 11/30/16 10:40 VBG Potassium 3.0 mmol/L (3.6-5.2) L 11/30/16 10:40 Sodium 145.0 mmol/l (132-148) 11/30/16 10:40 Chloride 118.0 mmol/L (98-107) H 11/30/16 10:40 Glucose 107 mg/dl (75-110) 11/30/16 10:40 Lactate 1.7 mmol/L (0.7-2.1) 11/30/16 10:40 Sodium 140 mmol/L (132-148) 12/03/16 07:51 Potassium 3.4 mmol/L (3.6-5.2) L 12/03/16 07:51 Chloride 108 mmol/L (98-107) H 12/03/16 07:51 Carbon Dioxide 25 mmol/L (22-30) 12/03/16 07:51 Anion Gap 10 (10-20) 12/03/16 07:51 BUN 17 mg/dL (9-20) 12/03/16 07:51 Creatinine 1.1 MG/DL (0.8-1.5) 12/03/16 07:51 Est GFR ( Amer) > 60 12/03/16 07:51 Est GFR (Non-Af Amer) > 60 12/03/16 07:51 POC Glucose (mg/dL) 206 mg/dL (65-110) H 12/04/16 11:06 Random Glucose 71 mg/dL (75-110) L 12/03/16 07:51 Hemoglobin A1c 6.5 % (4.2-6.5) 12/02/16 06:16 Calcium 8.8 mg/dl (8.6-10.4) 12/03/16 07:51 Phosphorus 4.1 mg/dL (2.5-4.5) 11/30/16 10:27 Magnesium 2.1 mg/dL (1.6-2.3) 11/30/16 10:27 Total Bilirubin 1.3 mg/dL (0.2-1.3) 11/30/16 10:27 AST 58 U/L (17-59) 11/30/16 10:27 ALT 26 U/L (21-72) 11/30/16 10:27 Alkaline Phosphatase 148 U/L (38-126) H 11/30/16 10:27 Total Creatine Kinase 160 U/L (55-170) 12/01/16 07:45 Troponin I 0.0200 ng/mL (0.00-0.120) 11/30/16 10:27 C-React Prot High Sens > 15.00 mg/L (1.00-3.00) H 12/02/16 06:16 NT-Pro-B Natriuret Pep 1130 pg/mL (0-900) H 11/30/16 10:27 Total Protein 9.4 g/dL (6.3-8.3) H 11/30/16 10:27 Albumin 4.1 g/dL (3.5-5.0) 11/30/16 10:27 Globulin 5.3 gm/dL (2.2-3.9) H 11/30/16 10:27 Albumin/Globulin Ratio 0.8 (1.0-2.1) L 11/30/16 10:27 Vitamin B12 900 pg/mL (239-931) 12/02/16 06:16 Free T4 1.91 ng/dL (0.78-2.19) 12/02/16 06:16 TSH 3rd Generation 2.28 mIU/L (0.46-4.68) 12/02/16 06:16 Prolactin 10.2 ng/mL (3.7-17.9) 12/02/16 06:16 Venous Blood Potassium 3.0 mmol/L (3.6-5.2) L 11/30/16 10:40 Urine Color Yellow (YELLOW) 11/30/16 11:12 Urine Clarity Hazy (Clear) 11/30/16 11:12 Urine pH 5.0 (5.0-8.0) 11/30/16 11:12 Ur Specific [place] 1.023 (1.003-1.030) 11/30/16 11:12 Urine Protein 2+ mg/dL (NEGATIVE) H 11/30/16 11:12 Urine Glucose (UA) Normal mg/dL (Normal) 11/30/16 11:12 Urine Ketones 1+ mg/dL (NEGATIVE) H 11/30/16 11:12 Urine Blood 1+ (NEGATIVE) H 11/30/16 11:12 Urine Nitrate Negative (NEGATIVE) 11/30/16 11:12 Urine Bilirubin Negative (NEGATIVE) 11/30/16 11:12 Urine Urobilinogen Normal mg/dL (0.2-1.0) 11/30/16 11:12 Ur Leukocyte Esterase Neg Adolfo/uL (Negative) 11/30/16 11:12 Urine WBC (Auto) 3 /hpf (0-5) 11/30/16 11:12 Urine RBC (Auto) 6 /hpf (0-3) H 11/30/16 11:12 Ur Squamous Epith Cells 1 /hpf (0-5) 11/30/16 11:12 Urine Bacteria Rare (<OCC) 11/30/16 11:12 RPR Nonreactive (NONREACTIVE) 12/02/16 06:16 - Hospital Course Hospital Course: Pt was admitted with dehydration and createnine of 1.7 he recieved IVF and had swalle eval pt had positive blood cuture and treated with IV rocephin he will continue with po avelox for 8days in rehab source of bacteremia likely urine pt was evaluted by neuro fo parkinsons mri done and ct no acute changes pt to go to rehab discussed dispostion with niece Discharge Exam - Head Exam Head Exam: ATRAUMATIC - Eye Exam Eye Exam: EOMI - ENT Exam ENT Exam: Mucous Membranes Moist - Respiratory Exam Respiratory Exam: NORMAL BREATHING PATTERN - Cardiovascular Exam Cardiovascular Exam: REGULAR RHYTHM Discharge Plan - Follow Up Plan Condition: SERIOUS Disposition: REHAB FACILITY/REHAB UNIT
[2016-12-04] MEDS ORDERED: Ergocalciferol 50,000 Intl Units Cap PO SCH (15:15)
[2016-12-04 16:54] VITALS: BP 150/79; PULSE 104; RESP 22; O2SAT 98
[2016-12-04 17:16] LABS: CHLORIDE 107 mmol/L (98-107); POTASSIUM 3.3 mmol/L (3.6-5.2); SODIUM 138 mmol/L (132-148)
[2016-12-04 17:19] LABS: BLOOD UREA NITROGEN 18 mg/dL (9-20); CARBON DIOXIDE 25 mmol/L (22-30); GFR AFRICAN-AMERICAN > 60; GLUCOSE,RANDOM 137 mg/dL (75-110)
[2016-12-04] MEDS ORDERED: Home Med 1 UNIT PO SCH (18:00)
--- NOTE | 2016-12-05 11:24 | PQF SEPSIS ---
This form is a permanent part of the medical record Dr. Sorensen, On your DS, you documented Bacteremia probably source urine. Blood culture positive for G+ cocci on IV antibiotics. Please clarify if the probable sepsis/ septicemia on admission was rule IN. Clarification of your documentation is requested to better reflect the severity of illness and intensity of treatment of your patient. Indicators present [] Temp < 96.8 or > 100.4 [] WBC count > 12,000/mm3 or <000/mm3 or 10% immature neutrophils [] Heart Rate > 90 [] Respiratory Rate > 20 [] Fever or hypothermia [] Chills [XXX] Positive blood cultures [] Hypotension [] Metabolic acidosis (Elevated lactate level, anion gap or reduced blood pH) [XXX] Acute confusion /Altered Mental Status [] Shock [] Other: [] Location in the medical record that reflects the above clinical findings: [] Treatment Provided: [] PHYSICIAN'S RESPONSE Based on your medical judgment of the clinical indicators outlined above, are you treating this patient for a known or suspected: [] Sepsis / Septicemia Please specify organism if known [] [] SIRS (Systemic Inflammatory Response Syndrome) [] Severe Sepsis (Sepsis with Associated Organ Dysfunction) [] Fever of Unknown Origin [] Other, please indicate: [] [] If Unable to Determine, please check the box, sign and date. Present On Admission (POA) Indicator: [] Present at the time of admission [] Not present at the time of admission [] Clinically Undetermined In responding to this query, please exercise your independent professional judgment. The fact that a question is asked does not imply that any particular answer is desired or expected. Thank you for your clarification on this documentation. If you have any questions please call:[ ] * Thank you, [ ] door liner helper JUAN CARLOS
== END 2016-12-04 18:45 | DRG 872 ==
LOC: C.ER 09:47 → C.9E 12:42 → C.6T 15:57
PROVIDERS: ADMIT Internal Medicine; ATTEND Internal Medicine
DX: A41.1 Sepsis due to other specified staphylococcus (principal); N39.0 Urinary tract infection, site not specified; I11.0 Hypertensive heart disease with heart failure; I50.9 Heart failure, unspecified; G30.9 Alzheimer's disease, unspecified; F02.80 Dementia in other diseases classified elsewhere, unspecified severity, without behavioral disturbance, psychotic disturbance, mood disturbance, and anxiety; E11.9 Type 2 diabetes mellitus without complications; E86.0 Dehydration; E78.00 Pure hypercholesterolemia, unspecified

== ENCOUNTER 2016-12-16 11:01 | Inpatient (IN) | payer MEDICARE, OTHER ==
[2016-12-16 11:02] VITALS: BMI 28.3
[2016-12-16] MEDS ORDERED: Sodium Chloride 0.9% 1,000 ML IV ONE (12:00)
--- NOTE | 2016-12-16 12:36 | RAD ---
HISTORY: WEAKNESS COMPARISON: Chest x-ray performed 12/01/16 TECHNIQUE: Chest, one view. FINDINGS: LUNGS: No focal consolidation. Please note that chest x-ray has limited sensitivity for the detection of pulmonary masses. PLEURA: No significant pleural effusion identified. No definite pneumothorax . CARDIOVASCULAR: Heart size appears within normal limits. OSSEOUS STRUCTURES: Degenerative changes of the spine. VISUALIZED UPPER ABDOMEN: Unremarkable. OTHER FINDINGS: None. IMPRESSION: No acute findings.
[2016-12-16 13:04] LABS: BASO # 0.1 K/uL (0.0-0.2); BASO % 0.7 % (0.0-2.0); EOS % 0.3 % (0.0-4.0); HEMATOCRIT 40.2 % (35.0-51.0); LYMPH # 0.7 K/uL (1.0-4.3); LYMPH % 5.9 % (20.0-40.0); MEAN CELL VOLUME 94.2 fL (80.0-94.0); MEAN CORPUSCULAR HEMOGLOBIN 31.3 pg (27.0-31.0); MEAN CORPUSCULAR HGB CONC 33.2 g/dL (33.0-37.0); MEAN PLATELET VOLUME 10.3 fL (7.2-11.7); MONO # 0.7 K/uL (0.0-0.8); MONO % 5.9 % (0.0-10.0); NRBC % 0.1 % (0.0-2.0); PLATELET COUNT 275 K/uL (130-400); RED CELL DISTRIBUTION WIDTH 14.7 % (11.5-14.5); WHITE BLOOD COUNT 11.7 K/uL (4.8-10.8)
[2016-12-16 13:15] LABS: CHLORIDE 104 mmol/L (98-107); POTASSIUM 3.6 mmol/L (3.6-5.2); SODIUM 146 mmol/L (132-148)
[2016-12-16 13:17] LABS: BILIRUBIN,TOTAL 1.1 mg/dL (0.2-1.3); CARBON DIOXIDE 24 mmol/L (22-30); GFR AFRICAN-AMERICAN > 60
[2016-12-16 13:18] LABS: ALB/GLOB RATIO 0.7 (1.0-2.1); ALKALINE PHOSPHATASE 240 U/L (38-126); ALT/SGPT 29 U/L (21-72); AST/SGOT 56 U/L (17-59); BLOOD UREA NITROGEN 26 mg/dL (9-20); CALCIUM 9.7 mg/dl (8.6-10.4); GLUCOSE,RANDOM 112 mg/dL (75-110); INR 1.3; TOTAL PROTEIN 9.1 g/dL (6.3-8.3)
[2016-12-16 13:26] LABS: RBC URINE 28 /hpf (0-3); URINE BACTERIA FEW (<OCC); URINE BILIRUBIN NEGATIVE (NEGATIVE); URINE BLOOD 3+ (NEGATIVE); URINE COLOR Yellow (YELLOW); URINE GLUCOSE (UA) 1+ mg/dL (Normal); URINE HYALINE CAST 0-2 /lpf (0-2); URINE KETONE 1+ mg/dL (NEGATIVE); URINE LEUKOCYTE ESTERASE NEG Leu/uL (Negative); URINE PROTEIN 2+ mg/dL (NEGATIVE); WBC URINE 4 /hpf (0-5)
[2016-12-16 13:36] LABS: NEUTROPHIL 80 % (50-75); TOTAL CELLS COUNTED 100
--- NOTE | 2016-12-16 14:53 | C.PDOC ---
Time Seen by Provider: 12/16/16 11:32 Chief Complaint (Nursing): Medical Clearance Past Medical History Vital Signs: Last Vital Signs Temp 97.4 F L 12/16/16 11:25 Pulse 87 12/16/16 11:25 Resp 20 12/16/16 11:25 BP 160/83 H 12/16/16 11:25 Pulse Ox 100 12/16/16 11:25 - Medical History PMH: Anemia, HTN, Hypercholesterolemia, Parkinson's Disease Denies: CHF, Chronic Kidney Disease Family History: States: Unknown Family Hx - Social History Hx Tobacco Use: No Hx Alcohol Use: No Hx Substance Use: No - Immunization History Hx Tetanus Toxoid Vaccination: Yes Hx Influenza Vaccination: Yes Hx Pneumococcal Vaccination: Yes ED Course And Treatment - Laboratory Results Result Diagrams: 12/16/16 12:58 12/16/16 12:58 O2 Sat by Pulse Oximetry: 100 Disposition - Disposition
--- NOTE | 2016-12-16 15:01 | C.PDOC ---
History Of Present Illness 86 y/o male presents to emergency department, sent from [facility], for PEG insertion. Patient presents with history of dementia at baseline. History obtained via EMS and assisted papers. PMD: Dr. Sorensen Time Seen by Provider: 12/16/16 11:32 Chief Complaint (Nursing): Medical Clearance History Per: Other (PMD, assisted paperwork) History/Exam Limitations: no limitations Onset/Duration Of Symptoms: Days Current Symptoms Are (Timing): Still Present Recent travel outside of the [place]: No Past Medical History Reviewed: Historical Data, Nursing Documentation, Vital Signs Vital Signs: Last Vital Signs Temp 97.4 F L 12/16/16 11:25 Pulse 87 12/16/16 11:25 Resp 20 12/16/16 11:25 BP 160/83 H 12/16/16 11:25 Pulse Ox 100 12/16/16 11:25 - Medical History PMH: Anemia, HTN, Hypercholesterolemia, Parkinson's Disease Denies: CHF, Chronic Kidney Disease Family History: States: Unknown Family Hx - Social History Hx Tobacco Use: No Hx Alcohol Use: No Hx Substance Use: No - Immunization History Hx Tetanus Toxoid Vaccination: Yes Hx Influenza Vaccination: Yes Hx Pneumococcal Vaccination: Yes Review Of Systems Review Of Systems: ROS cannot be obtained secondary to pt's inabilty to answer questions. Physical Exam - Physical Exam Appears: Non-toxic, Other (awake alert, minimally verbal, confused) Skin: Warm, Dry Head: Atraumatic, Normacephalic Eye(s): bilateral: Normal Inspection, PERRL, EOMI Oral Mucosa: Dry Tongue: Fissured (dry) Throat: Normal, No Erythema, No Exudate Neck: Supple Chest: Symmetrical Cardiovascular: Rhythm Regular, No Murmur Respiratory: Normal Breath Sounds, No Rales, No Rhonchi, No Wheezing Gastrointestinal/Abdominal: Soft, No Tenderness, No Guarding, No Rebound Back: Normal Inspection Extremity: Normal ROM, Capillary Refill (< 2 sec.) ED Course And Treatment - Laboratory Results Result Diagrams: 12/16/16 12:58 12/16/16 12:58 O2 Sat by Pulse Oximetry: 100 Pulse Ox Interpretation: Normal Progress Note: Labs ordered. Discussed with Dr. Sorensen at 15:00, will admit. Disposition - Disposition - Scribe Statement The provider has reviewed the documentation as recorded by the Eduin Aviles All medical record entries made by the Eduin were at my direction and personally dictated by me. I have reviewed the chart and agree that the record accurately reflects my personal performance of the history, physical exam, medical decision making, and the department course for this patient. I have also personally directed, reviewed, and agree with the discharge instructions and disposition.
[2016-12-16] MEDS ORDERED: Dextrose 5%/0.9% NS 1,000 ML IV ONE ×2 (15:04→15:44)
--- NOTE | 2016-12-16 15:58 | CP.PCM.HP ---
History of Present Illness - History of Present Illness History of Present Illness: CC: cant not swallow HPI: I was called by care home because patient can not longer swallow savely. Pt was evaluated by speech pathologyst and found to pocket food even thick nectar. Pt was transferred for hydration and insertion of peg tube. pt was rencently admitted to the hospital after fall, had bacterimia. Unkown source. Treated with IV antibiotics. Pt has Parkinsons. PMH: Parkinson's Alzeimers's hypertension diabetes anemia chf thrombocytopenia Hematuria PSH: Ankle surgery Allergy: nkda Social: No tob sociall ethoh Meds: amantadine 100mg bid amaryl 4 bid lisinopril 5 qd aspirin 81 qd crestor 10 qhs vit d q week tylenol prn Present on Admission - Present on Admission Any Indicators Present on Admission: No Review of Systems - Constitutional Constitutional: As Per HPI - EENT Eyes: absent: Diplopia Nose/Mouth/Throat: absent: Epistaxis, Nasal Discharge - Cardiovascular Cardiovascular: absent: Chest Pain - Respiratory Respiratory: absent: Cough, Hemoptysis - Gastrointestinal Gastrointestinal: absent: Abdominal Pain, Cramping - Genitourinary Genitourinary: absent: Change in Urinary Stream Past Patient History - Infectious Disease Hx of Infectious Diseases: None - Past Medical History & Family History Past Medical History?: Yes - Past Social History Smoking Status: Never Smoked - CARDIAC Hx Congestive Heart Failure: No Hx Hypercholesterolemia: Yes Hx Hypertension: Yes - PULMONARY Hx Respiratory Disorders: No - NEUROLOGICAL Hx Parkinson's Disease: Yes - HEENT 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 area as per niece - MUSCULOSKELETAL/RHEUMATOLOGICAL Hx Falls: Yes - GASTROINTESTINAL Hx Gastrointestinal Disorders: No - GENITOURINARY/GYNECOLOGICAL Hx Genitourinary Disorders: No - PSYCHIATRIC Hx Substance Use: No - SURGICAL HISTORY Hx Surgeries: Yes (right ankle surgery, bilateral eye surgeries) - ANESTHESIA Hx Anesthesia: Yes Hx Anesthesia Reactions: No Meds Allergies/Adverse Reactions: Allergies Allergy/AdvReac Type Severity Reaction Status Date / Time No Known Allergies Allergy Verified 12/16/16 11:22 Physical Exam - Eye Exam Eye Exam: EOMI - ENT Exam ENT Exam: Mucous Membranes Dry - Respiratory Exam Respiratory Exam: NORMAL BREATHING PATTERN. absent: Accessory Muscle Use - Cardiovascular Exam Cardiovascular Exam: REGULAR RHYTHM - GI/Abdominal Exam GI & Abdominal Exam: Normal Bowel Sounds, Soft. absent: Organomegaly Results - Vital Signs Recent Vital Signs: Last Vital Signs Temp 97.4 F L 12/16/16 11:25 Pulse 87 12/16/16 11:25 Resp 20 12/16/16 11:25 BP 160/83 H 12/16/16 11:25 Pulse Ox 100 12/16/16 15:03 - Labs Result Diagrams: 12/19/16 07:14 12/19/16 07:14 Labs: Laboratory Results - last 24 hr 12/16/16 12/16/16 12/16/16 12:58 12:58 12:58 WBC 11.7 H RBC 4.27 L Hgb 13.4 Hct 40.2 MCV 94.2 H MCH 31.3 H MCHC 33.2 RDW 14.7 H Plt Count 275 MPV 10.3 Neut % (Auto) 87.2 H Lymph % (Auto) 5.9 L [place] % (Auto) 5.9 Eos % (Auto) 0.3 Baso % (Auto) 0.7 Neut # 10.2 H Lymph # 0.7 L [place] # 0.7 Eos # 0.0 Baso # 0.1 Neutrophils % (Manual) 80 H Band Neutrophils % 6 H Lymphocytes % (Manual) 10 L Monocytes % (Manual) 4 Platelet Estimate Normal RBC Morphology Normal PT 14.2 H INR 1.3 APTT 34 Sodium Potassium Chloride Carbon Dioxide Anion Gap BUN Creatinine Est GFR ( Amer) Est GFR (Non-Af Amer) Random Glucose Calcium Total Bilirubin AST ALT Alkaline Phosphatase Total Creatine Kinase CK-MB (Mass) Troponin I Total Protein Albumin Globulin Albumin/Globulin Ratio Lipase Urine Color Yellow Urine Clarity Hazy Urine pH 5.0 Ur Specific [place] 1.021 Urine Protein 2+ H Urine Glucose (UA) 1+ H Urine Ketones 1+ H Urine Blood 3+ H Urine Nitrate Negative Urine Bilirubin Negative Urine Urobilinogen 2.0 Ur Leukocyte Esterase Neg Urine WBC (Auto) 4 Urine RBC (Auto) 28 H Ur Squamous Epith Cells < 1 Amorphous Sediment Moderate H Urine Bacteria Few H Hyaline Casts 0-2 12/16/16 12:58 WBC RBC Hgb Hct MCV MCH MCHC RDW Plt Count MPV Neut % (Auto) Lymph % (Auto) [place] % (Auto) Eos % (Auto) Baso % (Auto) Neut # Lymph # [place] # Eos # Baso # Neutrophils % (Manual) Band Neutrophils % Lymphocytes % (Manual) Monocytes % (Manual) Platelet Estimate RBC Morphology PT INR APTT Sodium 146 Potassium 3.6 Chloride 104 Carbon Dioxide 24 Anion Gap 21 H BUN 26 H Creatinine 1.2 Est GFR ( Amer) > 60 Est GFR (Non-Af Amer) 58 Random Glucose 112 H Calcium 9.7 Total Bilirubin 1.1 AST 56 ALT 29 Alkaline Phosphatase 240 H D Total Creatine Kinase 46 L CK-MB (Mass) 4.50 H Troponin I < 0.0120 Total Protein 9.1 H Albumin 3.8 Globulin 5.3 H Albumin/Globulin Ratio 0.7 L Lipase 58 Urine Color Urine Clarity Urine pH Ur Specific [place] Urine Protein Urine Glucose (UA) Urine Ketones Urine Blood Urine Nitrate Urine Bilirubin Urine Urobilinogen Ur Leukocyte Esterase Urine WBC (Auto) Urine RBC (Auto) Ur Squamous Epith Cells Amorphous Sediment Urine Bacteria Hyaline Casts Assessment & Plan - Assessment and Plan (Free Text) Assessment: dysphagia pt failed swolling test some mild dehydration; pulled IV at reha admit ivf gi consult for peg parkinson; cont meds
[2016-12-16] MEDS: Sodium Chloride 0.45% 1,000 ML IV SCH (16:54)
[2016-12-17] MEDS: Sodium Chloride 0.45% 1,000 ML IV SCH (09:09)
--- NOTE | 2016-12-17 16:54 | CP.PCM.CON ---
History of Present Illness - History of Present Illness History of Present Illness: This is an 86 year old man with dysphagia. Patient has dementia and is unable to provide details of the history. Patient was recently evaluated [place] therapist [place] who found signs of oropharyngeal dysphagia and considered the patient to be at high risk of aspiration based on bedside trials. He was transferred for PEG placement. 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 area as per niece - MUSCULOSKELETAL/RHEUMATOLOGICAL Hx Falls: Yes - GASTROINTESTINAL Hx Gastrointestinal Disorders: No - GENITOURINARY/GYNECOLOGICAL Hx Genitourinary Disorders: No - PSYCHIATRIC Hx Substance Use: No - SURGICAL HISTORY Hx Surgeries: Yes (right ankle surgery, bilateral eye surgeries) - ANESTHESIA Hx Anesthesia: Yes Hx Anesthesia Reactions: No Meds Allergies/Adverse Reactions: Allergies Allergy/AdvReac Type Severity Reaction Status Date / Time No Known Allergies Allergy Verified 12/16/16 11:22 - Medications Medications: Current Medications Famotidine (Pepcid) 20 mg IVP Q12 [facility] Last Admin: 12/17/16 09:49 Dose: 20 mg Sodium Chloride (Sodium Chloride 0.45%) 1,000 mls @ 60 mls/hr IV .[id number] [facility] Last Admin: 12/17/16 09:09 Dose: Not Given Physical Exam - Constitutional Appears: No Acute Distress - Head Exam Head Exam: ATRAUMATIC, NORMOCEPHALIC - Eye Exam Eye Exam: EOMI, PERRL - Neck Exam Neck exam: Negative for: Lymphadenopathy - Respiratory Exam Respiratory Exam: NORMAL BREATHING PATTERN. absent: Rales, Rhonchi, Wheezes - Cardiovascular Exam Cardiovascular Exam: REGULAR RHYTHM, +S1, +S2. absent: Gallop, Rubs, Systolic Murmur - GI/Abdominal Exam GI & Abdominal Exam: Normal Bowel Sounds, Soft. absent: Mass, Organomegaly, Tenderness - Rectal Exam Rectal Exam: Deferred - Extremities Exam Extremities exam: Negative for: calf tenderness, pedal edema Results - Vital Signs Recent Vital Signs: Last Vital Signs Temp 98.1 F 12/17/16 15:04 Pulse 84 12/17/16 15:04 Resp 22 12/17/16 15:04 BP 177/91 H 12/17/16 15:04 Pulse Ox 100 12/17/16 15:04 - Labs Result Diagrams: 12/16/16 12:58 12/16/16 12:58 Assessment & Plan (1) Dysphagia Assessment and Plan: Patient is a suitable candidate for PEG. Because of elevated ALKP, will check GGT and sonogram. Cardiology consult for elevated CKMB. Status: Acute
--- NOTE | 2016-12-17 16:59 | CP.PCM.PN ---
Subjective - Date & Time of Evaluation Date of Evaluation: 12/17/16 Time of Evaluation: 16:57 - Subjective Subjective: Pt awake in no acute distress. Interactive but with speech issues, at base line. Difficult to understand Objective - Vital Signs/Intake and Output Vital Signs (last 24 hours): Temp Pulse Resp BP Pulse Ox 98.1 F 84 22 177/91 H 100 12/17/16 15:04 12/17/16 15:04 12/17/16 15:04 12/17/16 15:04 12/17/16 15:04 Intake and Output: 12/17/16 12/17/16 06:59 18:59 Intake Total 480 480 Balance 480 480 - Medications Medications: Current Medications Famotidine (Pepcid) 20 mg IVP Q12 [facility] Last Admin: 12/17/16 09:49 Dose: 20 mg Sodium Chloride (Sodium Chloride 0.45%) 1,000 mls @ 60 mls/hr IV .[id number] [facility] Last Admin: 12/17/16 09:09 Dose: Not Given Dextrose/Sodium Chloride (Dextrose 5%-0.225% Ns 1000 Ml) 1,000 mls @ 80 mls/hr IV .[id number] [facility] Stop: 12/19/16 23:59 - Labs Labs: 12/16/16 12:58 12/16/16 12:58 PT 14.2 SECONDS (9.7-12.2) H 12/16/16 12:58 INR 1.3 12/16/16 12:58 APTT 34 SECONDS (21-34) 12/16/16 12:58 - Constitutional Appears: Well - Eye Exam Eye Exam: EOMI - ENT Exam ENT Exam: Mucous Membranes Moist - Respiratory Exam Respiratory Exam: Clear to Ausculation Bilateral, NORMAL BREATHING PATTERN - Cardiovascular Exam Cardiovascular Exam: REGULAR RHYTHM - GI/Abdominal Exam GI & Abdominal Exam: Normal Bowel Sounds Assessment and Plan - Assessment and Plan (Free Text) Plan: dysphagia parkison diabetes htn npo awaiting for peg placement tomorrow cont hydration change to d5 will add finger sticks bmp tomorrow
[2016-12-17] MEDS: Dextrose 5%-0.225% NS 1,000 ML IV SCH (17:31)
[2016-12-17 17:50] LABS: CHLORIDE 105 mmol/L (98-107); POTASSIUM 3.6 mmol/L (3.6-5.2); SODIUM 145 mmol/L (132-148)
[2016-12-17 17:52] LABS: BILIRUBIN,DIRECT 0.6 mg/dL (0.0-0.4); BILIRUBIN,TOTAL 1.1 mg/dL (0.2-1.3); CARBON DIOXIDE 26 mmol/L (22-30); GFR AFRICAN-AMERICAN > 60
[2016-12-17 17:53] LABS: ALB/GLOB RATIO 0.7 (1.0-2.1); ALKALINE PHOSPHATASE 187 U/L (38-126); ALT/SGPT 30 U/L (21-72); AST/SGOT 50 U/L (17-59); BLOOD UREA NITROGEN 20 mg/dL (9-20); GLUCOSE,RANDOM 105 mg/dL (75-110); TOTAL PROTEIN 8.6 g/dL (6.3-8.3)
[2016-12-17 18:10] LABS: INR 1.3
--- NOTE | 2016-12-17 19:16 | US ---
HISTORY: elevated alk phos, biliary obstruction COMPARISON: None. TECHNIQUE: Sonographic evaluation of the abdomen. FINDINGS: LIVER: Measures 13.1 cm. There are 2 lesions identified in the right lobe liver which are nearly isoechoic but appears slightly echo poor. The more inferior measures 2.6 x 3.2 x 3.5 cm and a 2nd lesion measures 3.7 x 3.7 x 3.1 cm at the anterior inferior margins of the right lobe. This pattern may reflect subtle diffuse fatty infiltration with focal areas of fatty sparing. No prominent intrahepatic biliary dilatation is appreciated. GALLBLADDER: Gallbladder is not fully distended with questionable thickening up to 3 mm. No cholelithiasis or pericholecystic fluid collection evident. Clinically correlate for potential cholecystitis. COMMON BILE DUCT: Measures 8.9 mm mm. No choledocholithiasis delete appreciable. PANCREAS: Hypoechoic structure seen close to the pancreatic head but completely different echogenicity may reflect local lymphadenopathy measuring 2.5 x 2.6 x 2.0 cm. Exophytic lesion off the pancreatic head is not completely excluded. RIGHT KIDNEY: Measures 10.5cm. Limited parenchymal but visualization due to body habitus but no gross hydronephrosis or discrete mass is appreciable or perinephric fluid collection. Diffuse cortical atrophy is appreciated mildly. LEFT KIDNEY: Measures 10.3 cm. Again, due to body habitus, sonic window is attenuated at the left kidney will with limited visualization noted. No gross hydronephrosis or discrete mass. Diffuse cortical atrophy is appreciated mildly. SPLEEN: Normal in size and contour. No mass. AORTA: No aneurysmal dilatation. IVC: Unremarkable. OTHER FINDINGS: None. IMPRESSION: Abnormal findings are appreciated at the liver which are suspicious for either 2 possible masses in the right lobe liver or potential subtle diffuse fatty infiltration with 2 morris areas of focal fatty sparing. Further, lymphadenopathy versus a small exophytic mass related to the pancreatic head or neck is in question as well. Follow-up CT of the abdomen pelvis utilizing pancreas protocol is advised for further evaluation. No gross intrahepatic biliary dilatation is appreciate however the common bile duct is dilated to just under 9 mm without choledocholithiasis. Mural thickening gallbladder is appreciated without other signs of cholecystitis. Clinically correlate further.
[2016-12-18] MEDS: Dextrose 5%-0.225% NS 1,000 ML IV SCH ×3 (05:30→21:13)
--- NOTE | 2016-12-18 10:44 | CP.PCM.CON ---
History of Present Illness - History of Present Illness History of Present Illness: The pt is an 86 year old man with HTN, diabetes and dementia, a [place] resident. pt cannot give history. pt is very lethargic, cannot swallow. A oeg insertion for feeding is advised. The pt has no known CAD. Although a problem list mentions chf, a review of the patients echo from 2016 reveals normal LV EF, mild AI and no pulmonary HTN. Diastolic filling is associated normal LA pressure. ECG is normal and current cxr is normal. 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 area as per niece - MUSCULOSKELETAL/RHEUMATOLOGICAL Hx Falls: Yes - GASTROINTESTINAL Hx Gastrointestinal Disorders: No - GENITOURINARY/GYNECOLOGICAL Hx Genitourinary Disorders: No - PSYCHIATRIC Hx Substance Use: No - SURGICAL HISTORY Hx Surgeries: Yes (right ankle surgery, bilateral eye surgeries) - ANESTHESIA Hx Anesthesia: Yes Hx Anesthesia Reactions: No Meds Allergies/Adverse Reactions: Allergies Allergy/AdvReac Type Severity Reaction Status Date / Time No Known Allergies Allergy Verified 12/16/16 11:22 - Medications Medications: Current Medications Famotidine (Pepcid) 20 mg IVP Q12 [facility] Last Admin: 12/17/16 21:53 Dose: 20 mg Dextrose/Sodium Chloride (Dextrose 5%-0.225% Ns 1000 Ml) 1,000 mls @ 80 mls/hr IV .[id number] [facility] Stop: 12/19/16 23:59 Last Admin: 12/18/16 05:30 Dose: Not Given Physical Exam - Constitutional Appears: Older Than Stated Age, Chronically Ill - Head Exam Head Exam: ATRAUMATIC, NORMAL INSPECTION - Eye Exam Eye Exam: EOMI (cataracts) - ENT Exam ENT Exam: Mucous Membranes Dry - Neck Exam Neck exam: Positive for: Normal Inspection - Respiratory Exam Respiratory Exam: Clear to Auscultation Bilateral, NORMAL BREATHING PATTERN - Cardiovascular Exam Cardiovascular Exam: REGULAR RHYTHM - GI/Abdominal Exam GI & Abdominal Exam: Normal Bowel Sounds - Extremities Exam Extremities exam: Positive for: normal inspection - Back Exam Back exam: NORMAL INSPECTION - Neurological Exam Neurological exam: Altered (pt is lethargic, arousable, cannot talk, only mumble , right facial droop) - Skin Skin Exam: Normal Color Results - Vital Signs Recent Vital Signs: Last Vital Signs Temp 97.4 F L 12/18/16 08:11 Pulse 67 12/18/16 08:11 Resp 20 12/18/16 08:11 BP 173/82 H 12/18/16 08:11 Pulse Ox 100 12/18/16 08:11 - Labs Result Diagrams: 12/16/16 12:58 12/17/16 17:34 Labs: Laboratory Results - last 24 hr 12/17/16 12/17/16 12/17/16 17:14 17:34 17:34 PT 14.5 H INR 1.3 Sodium 145 Potassium 3.6 Chloride 105 Carbon Dioxide 26 Anion Gap 18 BUN 20 Creatinine 1.1 Est GFR ( Amer) > 60 Est GFR (Non-Af Amer) > 60 POC Glucose (mg/dL) 115 H Random Glucose 105 Calcium 9.0 Total Bilirubin 1.1 Direct Bilirubin 0.6 H GGT 292 H AST 50 ALT 30 Alkaline Phosphatase 187 H D Total Creatine Kinase 42 L CK-MB (Mass) 3.57 H Troponin I, Quant < 0.0120 Total Protein 8.6 H Albumin 3.4 L Globulin 5.1 H Albumin/Globulin Ratio 0.7 L 12/17/16 12/18/16 12/18/16 21:13 05:10 07:03 PT INR Sodium Potassium Chloride Carbon Dioxide Anion Gap BUN Creatinine Est GFR ( Amer) Est GFR (Non-Af Amer) POC Glucose (mg/dL) 160 H 153 H 131 H Random Glucose Calcium Total Bilirubin Direct Bilirubin GGT AST ALT Alkaline Phosphatase Total Creatine Kinase CK-MB (Mass) Troponin I, Quant Total Protein Albumin Globulin Albumin/Globulin Ratio - EKG Data EKG Interpreted by: Myself EKG shows normal: Sinus rhythm (Normal ecg) Assessment & Plan - Assessment and Plan (Free Text) Assessment: 1. Apart from the patient's elderly and frail state, there are no other cardiovascular conditions identified other than HTN. As pt is NPO, his lisinopril has been held. Certainly, copious and rapid IV fluids could lead to chf, but otherwise the patient is cleared for peg insertion.
--- NOTE | 2016-12-18 12:01 | CARD ---
APPROVED REPORT EKG Measurement Heart [id number] HI [id number] [id number] <Conclusion> Sinus rhythm with short HI with premature supraventricular complexes Otherwise normal ECG
--- NOTE | 2016-12-18 14:54 | CP.PCM.PN ---
Subjective - Date & Time of Evaluation Date of Evaluation: 12/18/16 Time of Evaluation: 14:52 - Subjective Subjective: Pt unchanged wating for peg placement Objective - Vital Signs/Intake and Output Vital Signs (last 24 hours): Temp Pulse Resp BP Pulse Ox 97.4 F L 67 20 173/82 H 100 12/18/16 08:11 12/18/16 08:11 12/18/16 08:11 12/18/16 08:11 12/18/16 08:11 Intake and Output: 12/18/16 12/18/16 06:59 18:59 Intake Total 640 Balance 640 - Medications Medications: Current Medications Famotidine (Pepcid) 20 mg IVP Q12 [facility] Last Admin: 12/18/16 11:13 Dose: 20 mg Dextrose/Sodium Chloride (Dextrose 5%-0.225% Ns 1000 Ml) 1,000 mls @ 80 mls/hr IV .[id number] [facility] Stop: 12/19/16 23:59 Last Admin: 12/18/16 05:30 Dose: Not Given - Labs Labs: 12/16/16 12:58 12/17/16 17:34 PT 14.5 SECONDS (9.7-12.2) H 12/17/16 17:34 INR 1.3 12/17/16 17:34 APTT 34 SECONDS (21-34) 12/16/16 12:58 - Constitutional Appears: Well, Non-toxic - Head Exam Head Exam: ATRAUMATIC - Eye Exam Eye Exam: Normal appearance - ENT Exam ENT Exam: Mucous Membranes Moist - Respiratory Exam Respiratory Exam: Clear to Ausculation Bilateral - GI/Abdominal Exam GI & Abdominal Exam: Normal Bowel Sounds Assessment and Plan - Assessment and Plan (Free Text) Assessment: dysphagia for peg today cardio evaluated pt cleared for procedure parkinson with dysphagia can no longer leave alone 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
[2016-12-18] MEDS ORDERED: Lactated Ringer's 1,000 ML IV ONE (15:16)
[2016-12-18] MEDS ORDERED: Lidocaine Hydrochloride 5 ML INJ ONE (15:19)
[2016-12-18] MEDS ORDERED: Propofol 10 mg/ml Inj (20 ML) ONE (15:19)
[2016-12-18] MEDS ORDERED: ceFAZolin IV 1 gm in Dextrose 1 GM/50 ML BAG IVPB SCH (15:30)
[2016-12-18] MEDS: ceFAZolin IV 1 gm in Dextrose 1 GM/50 ML BAG IVPB SCH (17:30)
[2016-12-19 00:11] VITALS: RESP 20
[2016-12-19] MEDS: ceFAZolin IV 1 gm in Dextrose 1 GM/50 ML BAG IVPB SCH ×3 (01:02→17:51)
[2016-12-19] MEDS: Dextrose 5%-0.225% NS 1,000 ML IV SCH ×3 (06:30→21:31)
[2016-12-19 07:23] LABS: HEMATOCRIT 33.1 % (35.0-51.0); MEAN CELL VOLUME 93.2 fL (80.0-94.0); MEAN CORPUSCULAR HEMOGLOBIN 31.7 pg (27.0-31.0); MEAN PLATELET VOLUME 10.4 fL (7.2-11.7); RED CELL DISTRIBUTION WIDTH 14.1 % (11.5-14.5); WHITE BLOOD COUNT 12.5 K/uL (4.8-10.8)
[2016-12-19 08:16] LABS: CHLORIDE 100 mmol/L (98-107); SODIUM 133 mmol/L (132-148)
[2016-12-19 08:17] LABS: POTASSIUM 2.7 mmol/L (3.6-5.2)
[2016-12-19 08:19] LABS: ALB/GLOB RATIO 0.6 (1.0-2.1); ALKALINE PHOSPHATASE 157 U/L (38-126); ALT/SGPT 32 U/L (21-72); AST/SGOT 56 U/L (17-59); BILIRUBIN,TOTAL 1.1 mg/dL (0.2-1.3); BLOOD UREA NITROGEN 13 mg/dL (9-20); CALCIUM 8.2 mg/dl (8.6-10.4); CARBON DIOXIDE 27 mmol/L (22-30); GFR AFRICAN-AMERICAN > 60; GLUCOSE,RANDOM 132 mg/dL (75-110); TOTAL PROTEIN 7.9 g/dL (6.3-8.3)
--- NOTE | 2016-12-19 14:51 | CP.PCM.PN ---
Subjective - Date & Time of Evaluation Date of Evaluation: 12/19/16 Time of Evaluation: 14:48 - Subjective Subjective: Mental status is unchanged. Tube feedings have not yet started because of the unavailability of an infusion pump. Objective - Vital Signs/Intake and Output Vital Signs (last 24 hours): Temp Pulse Resp BP Pulse Ox 97.4 F L 82 20 154/86 H 100 12/19/16 08:02 12/19/16 08:02 12/19/16 08:02 12/19/16 08:02 12/19/16 08:02 Intake and Output: 12/19/16 12/19/16 06:59 18:59 Intake Total 660 Balance 660 - Medications Medications: Current Medications Famotidine (Pepcid) 20 mg IVP Q12 [facility] Last Admin: 12/19/16 09:29 Dose: 20 mg Dextrose/Sodium Chloride (Dextrose 5%-0.225% Ns 1000 Ml) 1,000 mls @ 80 mls/hr IV .[id number] [facility] Stop: 12/19/16 23:59 Last Admin: 12/19/16 09:28 Dose: 80 mls/hr Cefazolin Sodium/Dextrose (Ancef Iv 1 Gm Duplex) 1 gm in 50 mls @ 100 mls/hr IVPB Q8H [facility] Last Admin: 12/19/16 09:28 Dose: 100 mls/hr - Labs Labs: 12/19/16 07:14 12/19/16 07:14 PT 14.5 SECONDS (9.7-12.2) H 12/17/16 17:34 INR 1.3 12/17/16 17:34 APTT 34 SECONDS (21-34) 12/16/16 12:58 - Constitutional Appears: No Acute Distress - Head Exam Head Exam: ATRAUMATIC, NORMOCEPHALIC - Eye Exam Eye Exam: EOMI - Neck Exam Neck Exam: absent: Lymphadenopathy, Thyromegaly - Respiratory Exam Respiratory Exam: NORMAL BREATHING PATTERN. absent: Rales, Rhonchi, Wheezes - Cardiovascular Exam Cardiovascular Exam: REGULAR RHYTHM, +S1, +S2. absent: Gallop, Rubs, Murmur - GI/Abdominal Exam GI & Abdominal Exam: Distended, Soft, Normal Bowel Sounds. absent: Tenderness, Mass, Organomegaly Additional comments: Gastrostomy shows a small amount of bloody drainage. - Rectal Exam Rectal Exam: Deferred - Extremities Exam Extremities Exam: absent: Calf Tenderness, Pedal Edema Assessment and Plan (1) Dysphagia Assessment & Plan: Patient is one day post PEG placement. Patient has been afebrile, and the VS are stable. However, the HGB is down to 11.2 and will be repeated. Status: Acute
--- NOTE | 2016-12-19 14:52 | CP.PCM.DIS ---
Provider - Provider Date of Admission: 12/16/16 14:58 Attending physician: Regina Sorensen MD Time Spent in preparation of Discharge (in minutes): 30 Hospital Course - Lab Results Lab Results: Micro Results 12/16/16 12:30 Blood Blood Culture - Preliminary NO GROWTH AFTER 48 HOURS 12/16/16 12:00 Blood Blood Culture - Preliminary NO GROWTH AFTER 48 HOURS 12/16/16 12:00 Urine Urine Culture - Final No Growth (<1,000 CFU/ML) Most Recent Lab Values WBC 12.5 K/uL (4.8-10.8) H 12/19/16 07:14 RBC 3.55 Mil/uL (4.40-5.90) L 12/19/16 07:14 Hgb 11.2 g/dL (12.0-18.0) L D 12/19/16 07:14 Hct 33.1 % (35.0-51.0) L 12/19/16 07:14 MCV 93.2 fL (80.0-94.0) 12/19/16 07:14 MCH 31.7 pg (27.0-31.0) H 12/19/16 07:14 MCHC 34.0 g/dL (33.0-37.0) 12/19/16 07:14 RDW 14.1 % (11.5-14.5) 12/19/16 07:14 Plt Count 203 K/uL (130-400) 12/19/16 07:14 MPV 10.4 fL (7.2-11.7) 12/19/16 07:14 Neut % (Auto) 87.2 % (50.0-75.0) H 12/16/16 12:58 Lymph % (Auto) 5.9 % (20.0-40.0) L 12/16/16 12:58 [place] % (Auto) 5.9 % (0.0-10.0) 12/16/16 12:58 Eos % (Auto) 0.3 % (0.0-4.0) 12/16/16 12:58 Baso % (Auto) 0.7 % (0.0-2.0) 12/16/16 12:58 Neut # 10.2 K/uL (1.8-7.0) H 12/16/16 12:58 Lymph # 0.7 K/uL (1.0-4.3) L 12/16/16 12:58 [place] # 0.7 K/uL (0.0-0.8) 12/16/16 12:58 Eos # 0.0 K/uL (0.0-0.7) 12/16/16 12:58 Baso # 0.1 K/uL (0.0-0.2) 12/16/16 12:58 Neutrophils % (Manual) 80 % (50-75) H 12/16/16 12:58 Band Neutrophils % 6 % (0-2) H 12/16/16 12:58 Lymphocytes % (Manual) 10 % (20-40) L 12/16/16 12:58 Monocytes % (Manual) 4 % (0-10) 12/16/16 12:58 Platelet Estimate Normal (NORMAL) 12/16/16 12:58 RBC Morphology Normal 12/16/16 12:58 PT 14.5 SECONDS (9.7-12.2) H 12/17/16 17:34 INR 1.3 12/17/16 17:34 APTT 34 SECONDS (21-34) 12/16/16 12:58 Sodium 133 mmol/L (132-148) 12/19/16 07:14 Potassium 2.7 mmol/L (3.6-5.2) L 12/19/16 07:14 Chloride 100 mmol/L (98-107) 12/19/16 07:14 Carbon Dioxide 27 mmol/L (22-30) 12/19/16 07:14 Anion Gap 9 (10-20) L 12/19/16 07:14 BUN 13 mg/dL (9-20) 12/19/16 07:14 Creatinine 1.0 mg/dL (0.8-1.5) 12/19/16 07:14 Est GFR ( Amer) > 60 12/19/16 07:14 Est GFR (Non-Af Amer) > 60 12/19/16 07:14 POC Glucose (mg/dL) 132 mg/dL (65-110) H 12/19/16 05:05 Random Glucose 132 mg/dL (75-110) H 12/19/16 07:14 Calcium 8.2 mg/dl (8.6-10.4) L 12/19/16 07:14 Total Bilirubin 1.1 mg/dL (0.2-1.3) 12/19/16 07:14 Direct Bilirubin 0.6 mg/dL (0.0-0.4) H 12/17/16 17:34 GGT 292 U/L (8-78) H 12/17/16 17:34 AST 56 U/L (17-59) 12/19/16 07:14 ALT 32 U/L (21-72) 12/19/16 07:14 Alkaline Phosphatase 157 U/L (38-126) H 12/19/16 07:14 Total Creatine Kinase 42 U/L (55-170) L 12/17/16 17:34 CK-MB (Mass) 3.57 ng/mL (0.0-3.38) H 12/17/16 17:34 Troponin I < 0.0120 ng/mL (0.00-0.120) 12/16/16 12:58 Troponin I, Quant < 0.0120 ng/mL (0.00-0.120) 12/17/16 17:34 Total Protein 7.9 g/dL (6.3-8.3) 12/19/16 07:14 Albumin 2.9 g/dL (3.5-5.0) L 12/19/16 07:14 Globulin 5.0 gm/dL (2.2-3.9) H 12/19/16 07:14 Albumin/Globulin Ratio 0.6 (1.0-2.1) L 12/19/16 07:14 Lipase 58 U/L (23-300) 12/16/16 12:58 Urine Color Yellow (YELLOW) 12/16/16 12:58 Urine Clarity Hazy (Clear) 12/16/16 12:58 Urine pH 5.0 (5.0-8.0) 12/16/16 12:58 Ur Specific [place] 1.021 (1.003-1.030) 12/16/16 12:58 Urine Protein 2+ mg/dL (NEGATIVE) H 12/16/16 12:58 Urine Glucose (UA) 1+ mg/dL (Normal) H 12/16/16 12:58 Urine Ketones 1+ mg/dL (NEGATIVE) H 12/16/16 12:58 Urine Blood 3+ (NEGATIVE) H 12/16/16 12:58 Urine Nitrate Negative (NEGATIVE) 12/16/16 12:58 Urine Bilirubin Negative (NEGATIVE) 12/16/16 12:58 Urine Urobilinogen 2.0 mg/dL (0.2-1.0) 12/16/16 12:58 Ur Leukocyte Esterase Neg Adolfo/uL (Negative) 12/16/16 12:58 Urine WBC (Auto) 4 /hpf (0-5) 12/16/16 12:58 Urine RBC (Auto) 28 /hpf (0-3) H 12/16/16 12:58 Ur Squamous Epith Cells < 1 /hpf (0-5) 12/16/16 12:58 Amorphous Sediment Moderate /ul (<OCC) H 12/16/16 12:58 Urine Bacteria Few (<OCC) H 12/16/16 12:58 Hyaline Casts 0-2 /lpf (0-2) 12/16/16 12:58 - Hospital Course Hospital Course: pT WAS ADMITTED HYDRATED GI AND CARDIO CONSULTED PT HAD PEG PLACED PLAN IS FOR TUBE FEEDINGS WITH GOAL OF 60 CC/HR AND 100 WATER FLUSHES QID Discharge Exam - Head Exam Head Exam: ATRAUMATIC Discharge Plan - Follow Up Plan Condition: GOOD Disposition: NURSING FACILITY MEDICAID CERT
[2016-12-19 15:17] LABS: BASO # 0.1 K/uL (0.0-0.2); BASO % 0.5 % (0.0-2.0); EOS # 0.1 K/uL (0.0-0.7); EOS % 1.2 % (0.0-4.0); HEMATOCRIT 36.9 % (35.0-51.0); LYMPH % 8.8 % (20.0-40.0); MEAN CORPUSCULAR HEMOGLOBIN 31.6 pg (27.0-31.0); MEAN CORPUSCULAR HGB CONC 33.9 g/dL (33.0-37.0); MONO # 0.8 K/uL (0.0-0.8); MONO % 7.2 % (0.0-10.0); PLATELET COUNT 224 K/uL (130-400); RED CELL DISTRIBUTION WIDTH 14.3 % (11.5-14.5); WHITE BLOOD COUNT 11.8 K/uL (4.8-10.8)
[2016-12-19 15:40] LABS: EOSINOPHIL 2 % (0-4); LARGE PLATELETS PRESENT; NEUTROPHIL 86 % (50-75); TOTAL CELLS COUNTED 100
[2016-12-19 17:15] VITALS: O2SAT 98
[2016-12-20] MEDS: ceFAZolin IV 1 gm in Dextrose 1 GM/50 ML BAG IVPB SCH ×3 (01:07→17:48)
[2016-12-20 07:47] VITALS: BP 155/70; PULSE 82; TEMP 97.4
--- NOTE | 2016-12-20 07:47 | CP.PCM.PN ---
Subjective - Date & Time of Evaluation Date of Evaluation: 12/20/16 Time of Evaluation: 07:44 - Subjective Subjective: Mental status is unchanged. Tube feedings were started, and nursing staff reports no problems with the infusion. Objective - Vital Signs/Intake and Output Vital Signs (last 24 hours): Temp Pulse Resp BP Pulse Ox 98.1 F 73 20 131/68 98 12/19/16 23:50 12/19/16 23:50 12/19/16 23:50 12/19/16 23:50 12/19/16 23:50 Intake and Output: 12/20/16 12/20/16 06:59 18:59 Intake Total 1360 Output Total 450 Balance 910 - Medications Medications: Current Medications Famotidine (Pepcid) 20 mg IVP Q12 [facility] Last Admin: 12/19/16 21:31 Dose: 20 mg Cefazolin Sodium/Dextrose (Ancef Iv 1 Gm Duplex) 1 gm in 50 mls @ 100 mls/hr IVPB Q8H [facility] Last Admin: 12/20/16 01:07 Dose: 100 mls/hr - Labs Labs: 12/19/16 15:13 12/19/16 07:14 PT 14.5 SECONDS (9.7-12.2) H 12/17/16 17:34 INR 1.3 12/17/16 17:34 APTT 34 SECONDS (21-34) 12/16/16 12:58 - Constitutional Appears: No Acute Distress - Head Exam Head Exam: ATRAUMATIC, NORMOCEPHALIC - Neck Exam Neck Exam: absent: Lymphadenopathy, Thyromegaly - Respiratory Exam Respiratory Exam: NORMAL BREATHING PATTERN. absent: Rales, Rhonchi, Wheezes - Cardiovascular Exam Cardiovascular Exam: REGULAR RHYTHM, +S1, +S2. absent: Gallop, Rubs, Murmur - GI/Abdominal Exam GI & Abdominal Exam: Soft, Normal Bowel Sounds. absent: Tenderness, Mass, Organomegaly Additional comments: Gastrostomy site is clean and dry - Rectal Exam Rectal Exam: Deferred - Extremities Exam Extremities Exam: absent: Calf Tenderness, Pedal Edema Assessment and Plan (1) Dysphagia Assessment & Plan: Patient is day 2 post PEG placement. The G-tube is functioning normally. The HGB when repeated was 12.5, up from 11.2. Continue tube feedings. Status: Acute
[2016-12-20] MEDS ORDERED: Potassium Chloride 20 mEq/15 ml LIQ UD PO ONE ×2 (09:02→10:00)
[2016-12-20] MEDS: Potassium Chloride 20 mEq/15 ml LIQ UD PO ONE ×3 (09:50→10:57)
[2016-12-20] MEDS ORDERED: Influenza Vaccine 60 mcg/0.5 mL SYR (4YR UP) IM ONE ×2 (13:00→14:15)
[2016-12-20] MEDS ORDERED: Pneumococcal 23-Valent Vaccine IM ONE ×2 (13:00→14:30)
[2016-12-20 14:56] LABS: CHLORIDE 100 mmol/L (98-107); SODIUM 136 mmol/L (132-148)
[2016-12-20 14:59] LABS: BLOOD UREA NITROGEN 13 mg/dL (9-20); CARBON DIOXIDE 27 mmol/L (22-30); GFR AFRICAN-AMERICAN > 60; GLUCOSE,RANDOM 149 mg/dL (75-110)
[2016-12-20 15:00] LABS: CALCIUM 8.6 mg/dl (8.6-10.4); MAGNESIUM 1.9 mg/dL (1.6-2.3)
--- NOTE | 2016-12-20 15:57 | CP.PCM.DIS ---
Provider - Provider Date of Admission: 12/16/16 14:58 pt admitted with dysphagia and mild dehydration needed hydratrion and peg Attending physician: Regina Sorensen MD Time Spent in preparation of Discharge (in minutes): 30 Hospital Course - Lab Results Lab Results: Micro Results 12/16/16 12:30 Blood Blood Culture - Preliminary NO GROWTH AFTER 3 DAYS 12/16/16 12:00 Blood Blood Culture - Preliminary NO GROWTH AFTER 3 DAYS 12/16/16 12:00 Urine Urine Culture - Final No Growth (<1,000 CFU/ML) Most Recent Lab Values WBC 11.8 K/uL (4.8-10.8) H 12/19/16 15:13 RBC 3.97 Mil/uL (4.40-5.90) L 12/19/16 15:13 Hgb 12.5 g/dL (12.0-18.0) 12/19/16 15:13 Hct 36.9 % (35.0-51.0) 12/19/16 15:13 MCV 93.0 fL (80.0-94.0) 12/19/16 15:13 MCH 31.6 pg (27.0-31.0) H 12/19/16 15:13 MCHC 33.9 g/dL (33.0-37.0) 12/19/16 15:13 RDW 14.3 % (11.5-14.5) 12/19/16 15:13 Plt Count 224 K/uL (130-400) 12/19/16 15:13 MPV 10.0 fL (7.2-11.7) 12/19/16 15:13 Neut % (Auto) 82.3 % (50.0-75.0) H 12/19/16 15:13 Lymph % (Auto) 8.8 % (20.0-40.0) L 12/19/16 15:13 [place] % (Auto) 7.2 % (0.0-10.0) 12/19/16 15:13 Eos % (Auto) 1.2 % (0.0-4.0) 12/19/16 15:13 Baso % (Auto) 0.5 % (0.0-2.0) 12/19/16 15:13 Neut # 9.7 K/uL (1.8-7.0) H 12/19/16 15:13 Lymph # 1.0 K/uL (1.0-4.3) 12/19/16 15:13 [place] # 0.8 K/uL (0.0-0.8) 12/19/16 15:13 Eos # 0.1 K/uL (0.0-0.7) 12/19/16 15:13 Baso # 0.1 K/uL (0.0-0.2) 12/19/16 15:13 Neutrophils % (Manual) 86 % (50-75) H 12/19/16 15:13 Band Neutrophils % 6 % (0-2) H 12/16/16 12:58 Lymphocytes % (Manual) 6 % (20-40) L 12/19/16 15:13 Monocytes % (Manual) 6 % (0-10) 12/19/16 15:13 Eosinophils % (Manual) 2 % (0-4) 12/19/16 15:13 Platelet Estimate Normal (NORMAL) 12/19/16 15:13 Large Platelets Present 12/19/16 15:13 RBC Morphology Normal 12/16/16 12:58 PT 14.5 SECONDS (9.7-12.2) H 12/17/16 17:34 INR 1.3 12/17/16 17:34 APTT 34 SECONDS (21-34) 12/16/16 12:58 Sodium 136 mmol/L (132-148) 12/20/16 14:01 Potassium 4.0 mmol/L (3.6-5.2) 12/20/16 14:01 Chloride 100 mmol/L (98-107) 12/20/16 14:01 Carbon Dioxide 27 mmol/L (22-30) 12/20/16 14:01 Anion Gap 13 (10-20) 12/20/16 14:01 BUN 13 mg/dL (9-20) 12/20/16 14:01 Creatinine 1.0 mg/dL (0.8-1.5) 12/20/16 14:01 Est GFR ( Amer) > 60 12/20/16 14:01 Est GFR (Non-Af Amer) > 60 12/20/16 14:01 POC Glucose (mg/dL) 166 mg/dL (65-110) H 12/20/16 05:05 Random Glucose 149 mg/dL (75-110) H 12/20/16 14:01 Calcium 8.6 mg/dl (8.6-10.4) 12/20/16 14:01 Magnesium 1.9 mg/dL (1.6-2.3) 12/20/16 14:01 Total Bilirubin 1.1 mg/dL (0.2-1.3) 12/19/16 07:14 Direct Bilirubin 0.6 mg/dL (0.0-0.4) H 12/17/16 17:34 GGT 292 U/L (8-78) H 12/17/16 17:34 AST 56 U/L (17-59) 12/19/16 07:14 ALT 32 U/L (21-72) 12/19/16 07:14 Alkaline Phosphatase 157 U/L (38-126) H 12/19/16 07:14 Total Creatine Kinase 42 U/L (55-170) L 12/17/16 17:34 CK-MB (Mass) 3.57 ng/mL (0.0-3.38) H 12/17/16 17:34 Troponin I < 0.0120 ng/mL (0.00-0.120) 12/16/16 12:58 Troponin I, Quant < 0.0120 ng/mL (0.00-0.120) 12/17/16 17:34 Total Protein 7.9 g/dL (6.3-8.3) 12/19/16 07:14 Albumin 2.9 g/dL (3.5-5.0) L 12/19/16 07:14 Globulin 5.0 gm/dL (2.2-3.9) H 12/19/16 07:14 Albumin/Globulin Ratio 0.6 (1.0-2.1) L 12/19/16 07:14 Lipase 58 U/L (23-300) 12/16/16 12:58 Urine Color Yellow (YELLOW) 12/16/16 12:58 Urine Clarity Hazy (Clear) 12/16/16 12:58 Urine pH 5.0 (5.0-8.0) 12/16/16 12:58 Ur Specific [place] 1.021 (1.003-1.030) 12/16/16 12:58 Urine Protein 2+ mg/dL (NEGATIVE) H 12/16/16 12:58 Urine Glucose (UA) 1+ mg/dL (Normal) H 12/16/16 12:58 Urine Ketones 1+ mg/dL (NEGATIVE) H 12/16/16 12:58 Urine Blood 3+ (NEGATIVE) H 12/16/16 12:58 Urine Nitrate Negative (NEGATIVE) 12/16/16 12:58 Urine Bilirubin Negative (NEGATIVE) 12/16/16 12:58 Urine Urobilinogen 2.0 mg/dL (0.2-1.0) 12/16/16 12:58 Ur Leukocyte Esterase Neg Adolfo/uL (Negative) 12/16/16 12:58 Urine WBC (Auto) 4 /hpf (0-5) 12/16/16 12:58 Urine RBC (Auto) 28 /hpf (0-3) H 12/16/16 12:58 Ur Squamous Epith Cells < 1 /hpf (0-5) 12/16/16 12:58 Amorphous Sediment Moderate /ul (<OCC) H 12/16/16 12:58 Urine Bacteria Few (<OCC) H 12/16/16 12:58 Hyaline Casts 0-2 /lpf (0-2) 12/16/16 12:58 - Hospital Course Hospital Course: pt was hydrated k replaced had peg started on tube feeds which he tolerated well Discharge Exam - Head Exam Head Exam: ATRAUMATIC, NORMOCEPHALIC Discharge Plan - Follow Up Plan Condition: GOOD Instructions: Heart Failure (DC), Dehydration (DC) Referrals: Regina Sorensen MD [Staff Provider] -
--- NOTE | 2016-12-20 17:11 | PCM.HF ---
Heart Failure Core Measure - Heart Failure Ejection Fraction: 40 % or Greater (ef >40) YVETTE Inhibitor Prescribed: Yes Beta-Marty Prescribed: None Contraindication/Reason for not providing: poor prognosis Angiotensin II Receptor Marty Prescribed: No Contraindication/Reason for not providing: poor progmosis AnticoagulationTherapy for Atrial Fibrillation/Atrialflutter: No Contraindication/Reason for not providing: poor prognosis Aldosterone Antagonist Prescribed: No Contraindication/Reason for not providing: poor prognosis Hydralazine Nitrate Prescribed: No Contraindication/Reason for not providing: poor prognosis Implantable Cardioverter Defibrillator Therapy: No Contraindication/Reason for not providing: poor prognosis Cardiac Resynchronization Therapy Prescribed: No Contraindication/Reason for not providing: poor prognosis - Follow up Will be discharged to: Residential Facility Follow Up Date (must be within 7 days from discharge): 12/24/16 Follow Up Time: 09:00
== END 2016-12-20 21:15 | DRG 392 ==
LOC: C.ER 11:01 → C.9E 14:58 → C.3T 17:36
PROVIDERS: ADMIT Internal Medicine; ATTEND Internal Medicine
PROC: 0DH63UZ Insertion of Feeding Device into Stomach, Percutaneous Approach (ICD-10-PCS; principal; 2016-12-18 15:20)
DX: R13.12 Dysphagia, oropharyngeal phase (principal); G20 Parkinson's disease; I11.0 Hypertensive heart disease with heart failure; I50.9 Heart failure, unspecified; G30.1 Alzheimer's disease with late onset; E11.9 Type 2 diabetes mellitus without complications; D64.9 Anemia, unspecified; F02.80 Dementia in other diseases classified elsewhere, unspecified severity, without behavioral disturbance, psychotic disturbance, mood disturbance, and anxiety; E87.6 Hypokalemia; E86.0 Dehydration; E78.00 Pure hypercholesterolemia, unspecified; R29.810 Facial weakness

== ENCOUNTER 2017-03-21 18:51 | Inpatient (IN) | payer MEDICARE, OTHER ==
[2017-03-21] MEDS ORDERED: Naloxone 0.4 mg/ml Inj (Adult) ONE (18:57)
[2017-03-21 19:04] VITALS: BMI 23.6
[2017-03-21] MEDS ORDERED: Propofol 10 mg/ml 1,000 MG/100 ML VIAL IV STA (19:14)
[2017-03-21 19:20] LABS: BASO % 0.1 % (0.0-2.0); EOS % 0.3 % (0.0-4.0); LYMPH % 8.7 % (20.0-40.0); MEAN CELL VOLUME 102.4 fL (80.0-94.0); MEAN CORPUSCULAR HEMOGLOBIN 31.1 pg (27.0-31.0); MEAN CORPUSCULAR HGB CONC 30.3 g/dL (33.0-37.0); MEAN PLATELET VOLUME 14.2 fL (7.2-11.7); MONO # 0.6 K/uL (0.0-0.8); MONO % 5.8 % (0.0-10.0); NEUT # 9.5 K/uL (1.8-7.0); NEUT % 85.1 % (50.0-75.0); NRBC % 0.2 % (0.0-2.0); PLATELET COUNT 121 K/uL (130-400); RBC 2.87 Mil/uL (4.40-5.90); RED CELL DISTRIBUTION WIDTH 17.7 % (11.5-14.5); WHITE BLOOD COUNT 11.1 K/uL (4.8-10.8)
[2017-03-21] MEDS ORDERED: Propofol 10 mg/ml 1,000 MG/100 ML VIAL ONE (19:27)
[2017-03-21 19:39] LABS: VENOUS BLOOD GAS PCO2 57 mmHg (40-60); VENOUS BLOOD GAS PO2 27 mm/Hg (30-55); VENOUS BLOOD PH 7.28 (7.32-7.43)
[2017-03-21 19:41] LABS: INR 1.3; PROTHROMBIN TIME 14.1 SECONDS (9.7-12.2)
[2017-03-21] MEDS ORDERED: Etomidate 20 mg/10ml Inj IV ONE (19:44)
[2017-03-21 19:45] LABS: ALB/GLOB RATIO 0.6 (1.0-2.1); ALBUMIN 3.1 g/dL (3.5-5.0); CALCIUM 8.2 mg/dl (8.6-10.4); CK-MB 0.91 ng/mL (0.0-3.38); TROPONIN I 0.042 ng/mL (0.00-0.120)
[2017-03-21] MEDS ORDERED: (Novolin R) Insulin Human Regular 100 units/ml vial IV STA (19:45)
[2017-03-21] MEDS ORDERED: Sodium Chloride 0.9% 1,000 ML IV ONE ×3 (19:46→20:30)
[2017-03-21 19:47] LABS: HEMOGLOBIN 8.9 g/dL (12.0-18.0)
[2017-03-21] MEDS ORDERED: Vancomycin 1 GM 1 GM/250 ML BAG IV STA (19:47)
[2017-03-21] MEDS ORDERED: (Novolin R) Insulin Human Regular 100 units/ml vial ONE (20:12)
[2017-03-21 20:16] LABS: ANISOCYTOSIS SLIGHT; BANDS 6 % (0-2); LARGE PLATELETS PRESENT; LYMPHOCYTE 10 % (20-40); MONOCYTE 7 % (0-10); NEUTROPHIL 77 % (50-75); PLATELET ESTIMATE SLIGHTLY DECREASED (NORMAL); POLYCHROMIC SLIGHT; TOTAL CELLS COUNTED 100
--- NOTE | 2017-03-21 20:16 | CP.PCM.CON ---
History of Present Illness - History of Present Illness History of Present Illness: 87 y/o male with unknown PMX [facility] with respiratory distress. Patient was intubated by EMS. LImited history as patient is intubated. From previous medical chart: Parkinson's Alzheimers's hypertension diabetes anemia chf thrombocytopenia Hematuria Review of Systems - Review of Systems Review of Systems: limited ROS 2nd patient being intubated and unable to provide history 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 area as per niece - MUSCULOSKELETAL/RHEUMATOLOGICAL Hx Falls: Yes - GASTROINTESTINAL Hx Gastrointestinal Disorders: No - GENITOURINARY/GYNECOLOGICAL Hx Genitourinary Disorders: No - PSYCHIATRIC Hx Psychophysiologic Disorder: No Hx Substance Use: No - SURGICAL HISTORY Hx Surgeries: Yes (right ankle surgery, bilateral eye surgeries) - ANESTHESIA Hx Anesthesia: Yes Hx Anesthesia Reactions: No Meds Allergies/Adverse Reactions: Allergies Allergy/AdvReac Type Severity Reaction Status Date / Time No Known Allergies Allergy Verified 12/16/16 11:22 - Medications Medications: Current Medications Sodium Chloride (Sodium Chloride 0.9%) 1,000 mls @ 1,000 mls/hr IV .Q1H ONE Stop: 03/21/17 20:45 Last Admin: 03/21/17 20:06 Dose: 1,000 mls/hr Vancomycin HCl 1 gm/ Sodium (Chloride) 250 mls @ 167 mls/hr IVPB ONCE ONE Stop: 03/21/17 22:29 Physical Exam - Head Exam Head Exam: ATRAUMATIC, NORMAL INSPECTION, NORMOCEPHALIC - Eye Exam Eye Exam: Normal appearance Pupil Exam: PERRL - ENT Exam ENT Exam: Mucous Membranes Dry - Respiratory Exam Respiratory Exam: Clear to Auscultation Bilateral, NORMAL BREATHING PATTERN - Cardiovascular Exam Cardiovascular Exam: REGULAR RHYTHM, +S1, +S2, +S4, Systolic Murmur - GI/Abdominal Exam GI & Abdominal Exam: Normal Bowel Sounds, Soft - Rectal Exam Rectal Exam: Fecal Impaction - Extremities Exam Extremities exam: Positive for: normal inspection - Neurological Exam Additional comments: sedated on ventilator - Skin Skin Exam: Intact, Normal Color Results - Vital Signs Recent Vital Signs: Last Vital Signs Temp 98.1 F 03/21/17 19:41 Pulse 112 H 03/21/17 19:41 Resp 22 03/21/17 19:41 BP 104/40 L 03/21/17 19:41 Pulse Ox 100 03/21/17 19:41 - Labs Result Diagrams: 03/21/17 19:13 03/21/17 19:13 Labs: Laboratory Results - last 24 hr 03/21/17 03/21/17 03/21/17 19:13 19:13 19:13 WBC 11.1 H RBC 2.87 L Hgb 8.9 L D Hct 29.4 L MCV 102.4 H D MCH 31.1 H MCHC 30.3 L RDW 17.7 H Plt Count 121 L D MPV 14.2 H Neut % (Auto) 85.1 H Lymph % (Auto) 8.7 L Ocean % (Auto) 5.8 Eos % (Auto) 0.3 Baso % (Auto) 0.1 Neut # 9.5 H Lymph # 1.0 Ocean # 0.6 Eos # 0.0 Baso # 0.0 PT 14.1 H INR 1.3 APTT 33 pO2 VBG pH VBG pCO2 VBG HCO3 VBG Total CO2 VBG O2 Sat (Calc) VBG Base Excess VBG Potassium Glucose Lactate Crit Value Called To Crit Value Called By Crit Value Read Back Blood Gas Notified Time Sodium 172 H* D Potassium 4.7 Chloride 135 H Carbon Dioxide 30 Anion Gap 11 BUN 128 H* D Creatinine 2.4 H Est GFR ( Amer) 31 Est GFR (Non-Af Amer) 26 Random Glucose 376 H Hemoglobin A1c Calcium 8.2 L Total Bilirubin 0.6 AST 66 H ALT 45 Alkaline Phosphatase 279 H D CK-MB (Mass) 0.91 Troponin I 0.0420 Total Protein 8.7 H Albumin 3.1 L Globulin 5.6 H Albumin/Globulin Ratio 0.6 L Lipase 326 H Venous Blood Potassium Blood Type Antibody Screen 01/08/0103/21/17 03/21/17 19:13 19:18 19:36 WBC RBC Hgb Hct MCV MCH MCHC RDW Plt Count MPV Neut % (Auto) Lymph % (Auto) Ocean % (Auto) Eos % (Auto) Baso % (Auto) Neut # Lymph # Ocean # Eos # Baso # PT INR APTT pO2 27 L VBG pH 7.28 L VBG pCO2 57 VBG HCO3 22.6 VBG Total CO2 28.5 H VBG O2 Sat (Calc) 52.7 VBG Base Excess -1.0 L VBG Potassium 4.5 Glucose 345 H Lactate 3.2 H Crit Value Called To Dr. melendez Crit Value Called By Dany ba Crit Value Read Back Y Blood Gas Notified Time 1938 Sodium 176.0 H* Potassium Chloride 141.0 H Carbon Dioxide Anion Gap BUN Creatinine Est GFR ( Amer) Est GFR (Non-Af Amer) Random Glucose Hemoglobin A1c 7.6 H Calcium Total Bilirubin AST ALT Alkaline Phosphatase CK-MB (Mass) Troponin I Total Protein Albumin Globulin Albumin/Globulin Ratio Lipase Venous Blood Potassium 4.5 Blood Type A POSITIVE Antibody Screen Negative Assessment & Plan (1) Respiratory failure with hypoxia and hypercapnia Status: Acute Priority: High Onset Date: ~03/21/17 (2) Respiratory failure with hypoxia and hypercapnia Status: Acute Priority: High (3) Hypernatremia Status: Acute Priority: High (4) CLEMENT (acute kidney injury) Status: Acute Priority: High (5) CLEMENT (acute kidney injury) Status: Acute Priority: High (6) Diabetes mellitus Status: Chronic Priority: Medium (7) Altered mental status Status: Acute Priority: High - Assessment and Plan (Free Text) Assessment: -AMS: suspect opoids, check Utox, CT head and EEG, check lactic -HYpercapneic respiratory failure:continue ventilation to keep spO2 >92 and pH b /w 7.35-7.45, continue bronchodilators, repeat ABG -Hypernatremia: check urien osmol, serum osmol and urine lytes, possible dehydration or diuretic related, slow hydration to decrease Na -CHronic diastolic heart failure: check echo, bnp and EKG, consider starting asa , AV shalini blockerif BP stable, not acandidate for ACEI 2nd renal failure -Sepsis: suspect aspiration, check cxr, lactic, procalcitonin -CLEMENT: 2nd dehydration, continue gently hydration -ANemia: check Iron panel, guiac and serial cbc, no acute clinical bleeding, CT abd.pelvis pending -DM: BGM high, start insulin ggt, check HBA1c -check TSH -dvt ppx heparin sq (once CT head neg) -PUD ppx protonix CT head and CT abd.pelvis pending cc time 33 minutes d/w ER physician patient will benefit from ICU level are
[2017-03-21 20:17] LABS: ROULEAUX FORMATION SLIGHT
[2017-03-21] MEDS ORDERED: Iohexol 240 (50 ml) ONE (20:28)
[2017-03-21] MEDS ORDERED: Insulin Human Regular 100 UNIT in Sodium Chloride 0.9% 99 ML SC SCH (20:30)
[2017-03-21] MEDS ORDERED: Piperacillin/Tazobact 3.375 GM in Sodium Chloride 100 ML IVPB SCH (20:30)
[2017-03-21] MEDS ORDERED: Iohexol 240 (50 ml) PO ONE (20:31)
[2017-03-21 20:46] LABS: ABG ALLEN TEST YES; ARTERIAL BLOOD GAS HCO3 21.6 mmol/L (21-28); ARTERIAL BLOOD GAS O2 SAT 100.6 % (95-98); ARTERIAL BLOOD GAS PCO2 28 mm/Hg (35-45); ARTERIAL BLOOD GAS PH 7.43 (7.35-7.45); ARTERIAL BLOOD GAS PO2 366 mm/Hg (80-100); ARTERIAL BLOOD GAS TCO2 19.5 mmol/L (22-28)
[2017-03-21 20:48] LABS: B-TYPE NATRIURETIC PEPTIDE 902 pg/mL (0-900)
[2017-03-21] MEDS: Sodium Chloride 0.9% 1,000 ML IV SCH (21:00)
[2017-03-21 21:20] LABS: PH,URINE 7.5 (5.0-8.0); URINE BILIRUBIN NEGATIVE (NEGATIVE); URINE BLOOD LARGE (NEGATIVE); URINE CLARITY CLOUDY (Clear); URINE COLOR YELLOW (YELLOW); URINE GLUCOSE (UA) 100 mg/dL (Normal); URINE LEUKOCYTE ESTERASE MODERATE Leu/uL (Negative); URINE NITRATE NEGATIVE (NEGATIVE); URINE PROTEIN > 300 mg/dL (NEGATIVE); URINE UROBILINOGEN 0.2 mg/dL (0.2-1.0)
[2017-03-21 21:21] LABS: SQUAMOUS EPITHIAL 2 /hpf (0-5); URINE BACTERIA RARE (<OCC)
--- NOTE | 2017-03-21 21:32 | C.PDOC ---
History Of Present Illness 87 year old male presents to the emergency department via EMS, BLS only, with severe respiratory distress using bag valve mask upon arrival. Patient is lethargic with decreased respiratory effort since this morning, 03/21/2016. Patient was referred from [facility] ([facility] [place]) for evaluation but ambulance brought him here during route due to deteriorating condition. Time Seen by Provider: 03/21/17 19:13 Chief Complaint (Nursing): Respiratory Distress History Per: Patient History/Exam Limitations: no limitations Past Medical History Vital Signs: Last Vital Signs Temp 97.3 F L 03/24/17 20:00 Pulse 90 03/25/17 00:00 Resp 18 03/25/17 00:00 BP 112/66 03/24/17 23:24 Pulse Ox 100 03/25/17 00:00 - Medical History PMH: Anemia, HTN, Hypercholesterolemia, Parkinson's Disease Denies: CHF, Chronic Kidney Disease - [facility] Procedures INSERTION OF FEEDING DEVICE INTO STOMACH, PERC APPROACH (12/16/16) Family History: States: Unknown Family Hx - Social History Hx Tobacco Use: No Hx Alcohol Use: No Hx Substance Use: No - Immunization History Hx Tetanus Toxoid Vaccination: Yes Hx Influenza Vaccination: Yes Hx Pneumococcal Vaccination: Yes Review Of Systems Except As Marked, All Systems Reviewed And Found Negative. (As per HPI, otherwise negative) Respiratory: Positive for: Other (Decreased respiratory arrest) Neurological: Positive for: Other (Lethargic) Physical Exam - Physical Exam Appears: Well (Elderly white male), Non-toxic Skin: Normal Color, Warm, Dry Head: Atraumatic, Normacephalic Eye(s): bilateral: Normal Inspection Ear(s): Bilateral: Normal Oral Mucosa: Dry (oropharynx) Throat: Normal, No Erythema Chest: Symmetrical Cardiovascular: Rhythm Regular (Tachycardia), No Murmur Respiratory: Normal Breath Sounds, No Decreased Breath Sounds, No Accessory Muscle Use, No Wheezing Gastrointestinal/Abdominal: Normal Exam (Peg tube placed in good position located in the left upper abdomen region), Soft, No Tenderness Extremity: Normal ROM, No Pedal Edema, No Other (No sacral or decubitus ulcers noted. ) Neurological/Psych: Oriented x3 ED Course And Treatment - Laboratory Results Result Diagrams: 03/24/17 06:44 03/24/17 16:44 O2 Sat by Pulse Oximetry: 99 (RA) Pulse Ox Interpretation: Normal Medical Decision Making Medical Decision Making: Time: 1917 --Chest x-ray --Labs and chemistry ordered --EKG --Type and Screen --Propofol 100 ml IV --Urinalysis Time: 1943 --Amidate 20 mg IV --Insulin 8 UNIT IV --Discussed case with Dr. Tellez who is covering for Dr. Aguirre for admission with Dr. Cleary. --Dr. Sheriff (ICU) assessed patient. Time: 1946 --Head CT --Spoke to Dr. Cleary about admission who agrees admission with Dr. eKy Sheriff MD. --Admit to hospital routine: As inpatient in ICU for Resp Arrest, PNA, uncontrolled DM, dehydration under the care of Jose C Sheriff MD. Time: 2001 --Abd Shock Panel --Sodium Chloride 1L IV Time: 2030 --Iohexol 50 ml PO --Sodium Chloride 1L IV Time: 2099 --Vancomycin 250 ml IVPB Time: 2132 --ABG: normal with no significant abnormalities. Disposition Doctor Will See Patient In The: Hospital Counseled Patient/Family Regarding: Studies Performed, Diagnosis - Disposition Disposition: HOSPITALIZED Disposition Time: 23:00 Condition: FAIR - Clinical Impression Clinical Impression: Hypernatremia, Respiratory failure - Scribe Statement Regina Sheriff All medical record entries made by the Scribe were at my direction and personally dictated by me. I have reviewed the chart and agree that the record accurately reflects my personal performance of the history, physical exam, medical decision making, and the department course for this patient. I have also personally directed, reviewed, and agree with the discharge instructions and disposition.
--- NOTE | 2017-03-21 22:17 | CT ---
EXAM: CT Head Without Intravenous Contrast CLINICAL HISTORY: 87 years old, male; Signs and symptoms; Altered mental status/memory loss; Confusion or disorientation; Additional info: Changed mental status from nh TECHNIQUE: Axial computed tomography images of the head/brain without intravenous contrast. All CT scans at this facility use one or more dose reduction techniques, viz.: automated exposure control; ma/kV adjustment per patient size (including targeted exams where dose is matched to indication; i.e. head); or iterative reconstruction technique. Coronal and sagittal reformatted images were created and reviewed. COMPARISON: CT - HEAD W/O CONTRAST 2016-11-30 13:52 FINDINGS: Brain: Unremarkable. No significant white matter disease. No edema. No intracranial mass, mass effect, or midline shift. Ventricles: Prominence of the sulci and ventricular system consistent with atrophy. No intracranial mass, mass effect, or midline shift. No hemorrhage. No hydrocephalus. Bones/joints: Unremarkable. No acute fracture. Soft tissues: Unremarkable. Sinuses: Partial opacification left maxillary sinus. Mastoid air cells: Unremarkable as visualized. No mastoid effusion. IMPRESSION: No acute intracranial abnormality.
--- NOTE | 2017-03-21 22:26 | CT ---
EXAM: CT Abdomen and Pelvis With Intravenous Contrast CLINICAL HISTORY: 87 years old, male; Condition or disease; Other: Obstruction; Additional info: Eval obstruction TECHNIQUE: Axial computed tomography images of the abdomen and pelvis with intravenous contrast. All CT scans at this facility use one or more dose reduction techniques, viz.: automated exposure control; ma/kV adjustment per patient size (including targeted exams where dose is matched to indication; i.e. head); or iterative reconstruction technique. Coronal and sagittal reformatted images were created and reviewed. CONTRAST: 50 mL of omnipaque 240 administered intravenously. COMPARISON: No relevant prior studies available. FINDINGS: Artifacts: Artifact through the upper abdomen. Lower thorax: Oral contrast in distal esophagus. Nasogastric tube in distal esophagus. Nasogastric tube in stomach or Dense consolidation posteriorly at both lung bases. ABDOMEN: Liver: Unremarkable. No mass. Gallbladder and bile ducts: Gallbladder appears to be present. Correlate with surgical history. No calcified stones. No ductal dilation. Pancreas: Unremarkable. No mass. No ductal dilation. Spleen: Unremarkable. No splenomegaly. Adrenals: Adrenal glands are unremarkable. Kidneys and ureters: Kidneys are unremarkable. No hydronephrosis. Stomach and bowel: Fluid filled stomach. Gastrostomy tube in place. The gastrostomy tube balloon is intraluminal. Oral contrast is seen through proximal small bowel. The remainder of small bowel is fluid-filled and mildly dilated. Incompletely distended versus mildly thick walled ascending and transverse colon. Small moderate amount of retained stool in left colon. Large amount of stool in rectosigmoid. Appendix: No findings to suggest acute appendicitis. PELVIS: Bladder: Potter balloon in partially decompressed urinary bladder. Reproductive: Enlarged prostate. ABDOMEN and PELVIS: Intraperitoneal space: Unremarkable. No free air. No significant fluid collection. Bones/joints: Diffuse spinal degenerative changes. No acute fracture. No dislocation. Soft tissues: Small fat-containing left inguinal hernia. Vasculature: Aorta is atherosclerotic. No aneurysm. No retroperitoneal adenopathy. Lymph nodes: See above. IMPRESSION: 1. Nasogastric tube in decompressed stomach. Percutaneous gastrostomy tube is also in stomach, in good position. 2. Diffusely fluid-filled mildly prominent small bowel, with no definite transition point. Probable enteritis. 3. Decompressed colon versus nonspecific colonic wall thickening. 4. Large amount of retained stool. Correlate for constipation. 5. Remainder of findings as above.
[2017-03-21] MEDS: Piperacill/Tazo 2.25gm in Dex 2.25 GM/50 ML BAG IVPB SCH (22:39)
[2017-03-22] MEDS: Albuterol-Ipratrop 3 mg / 0.5 (3 ml) UD INH SCH ×4 (01:33→20:08)
[2017-03-22 04:47] LABS: ARTERIAL BLOOD GAS O2 SAT 99.6 % (95-98); ARTERIAL BLOOD GAS PCO2 25 mm/Hg (35-45); ARTERIAL BLOOD GAS PH 7.49 (7.35-7.45); ARTERIAL BLOOD GAS PO2 226 mm/Hg (80-100); ARTERIAL BLOOD GAS TCO2 19.9 mmol/L (22-28)
[2017-03-22] MEDS: Piperacill/Tazo 2.25gm in Dex 2.25 GM/50 ML BAG IVPB SCH ×3 (05:04→20:22)
[2017-03-22] MEDS ORDERED: Vancomycin 1 GM 1 GM/250 ML BAG IVPB STA (05:13)
[2017-03-22] MEDS: (Novolog) Insulin Aspart, Recombinant 100 u/ml 10 ml vial SC SCH ×4 (05:49→23:10)
[2017-03-22 06:46] LABS: BASO % 0.3 % (0.0-2.0); EOS % 0.1 % (0.0-4.0); LYMPH # 1.2 K/uL (1.0-4.3); LYMPH % 10.3 % (20.0-40.0); MEAN CELL VOLUME 103.3 fL (80.0-94.0); MEAN CORPUSCULAR HEMOGLOBIN 31.5 pg (27.0-31.0); MEAN CORPUSCULAR HGB CONC 30.5 g/dL (33.0-37.0); MEAN PLATELET VOLUME 14.6 fL (7.2-11.7); MONO # 0.5 K/uL (0.0-0.8); MONO % 4.2 % (0.0-10.0); NEUT # 9.5 K/uL (1.8-7.0); NEUT % 85.1 % (50.0-75.0); NRBC % 0.1 % (0.0-2.0); PLATELET COUNT 85 K/uL (130-400); RBC 2.85 Mil/uL (4.40-5.90); RED CELL DISTRIBUTION WIDTH 17.6 % (11.5-14.5); WHITE BLOOD COUNT 11.2 K/uL (4.8-10.8)
[2017-03-22 07:00] LABS: ALB/GLOB RATIO 0.5 (1.0-2.1); ALBUMIN 2.8 g/dL (3.5-5.0); CALCIUM 7.3 mg/dl (8.6-10.4); IRON 14 ug/dL (49-181); MAGNESIUM 2.8 mg/dL (1.6-2.3)
[2017-03-22 07:09] LABS: TOTAL IRON BINDING CAPACITY 194 ug/dL (250-450)
[2017-03-22 07:10] LABS: % IRON SATURATION 7 (20-55)
[2017-03-22] MEDS ORDERED: Sodium Chloride 0.9% 1,000 ML IV ONE ×2 (07:17→07:18)
[2017-03-22] MEDS ORDERED: Albumin Human 5% (25 gm/500 ml) IVPB ONE ×2 (07:30)
--- NOTE | 2017-03-22 08:35 | RAD ---
HISTORY: sob COMPARISON: Comparison is made to 12/16/2016 FINDINGS: LUNGS: The ET tube is seen at appropriate position. There is no evidence of new significant infiltrate or consolidation in the lungs. PLEURA: No significant pleural effusion identified, no pneumothorax apparent. CARDIOVASCULAR: Normal. OSSEOUS STRUCTURES: No significant abnormalities. VISUALIZED UPPER ABDOMEN: G tube seen extending to the abdomen. OTHER FINDINGS: None. IMPRESSION: Status post intubation. The ET tube is noted at appropriate position. No evidence of acute pulmonary disease.
[2017-03-22 09:00] LABS: OSMOLALITY,URINE 563 mosm/kg (300-1000)
[2017-03-22 09:03] LABS: CREATININE, RANDOM URINE 75.7 mg/dL
[2017-03-22 09:37] LABS: BARBITURATES, UR NEGATIVE (NEGATIVE); BENZODIAZEPINES, UR NEGATIVE (NEGATIVE); OPIATES, UR NEGATIVE (NEGATIVE); PHENCYCLIDINE, UR NEGATIVE (NEGATIVE)
[2017-03-22] MEDS: Sodium Chloride 0.9% 1,000 ML IV SCH (10:45)
--- NOTE | 2017-03-22 11:15 | PCM.PROC ---
Procedures Attestation:: I certify that I have explained the specified Operation(s) or Procedure(s), risks, benefits and reasonable alternatives to the Patient and/or other person responsible. The opportunity was given to ask questions and all questions answered - Central Line Placement Subclavian Aseptic technique was employed throughout the procedure: Hand Hygiene done prior to procedure, Full sterile barriers (mask, hair cover, sterile gown, sterile gloves), Full body sterile drape, Chloraprep Antiseptic: 30 second prep for IJ or SC sites CVP Time Out Performed: Yes Pt. Placed on Pulse Ox Monitor: Yes Central Line Prep: Chlorhexidine-Alcohol Combination Local Anesthesia Used: Lidocaine 1% Ultrasound Used for Placement: Yes Central Line Lumen Inserted: triple Post Procedure: Sutured in Place, Good Blood Return, All Ports Aspirated, Flushed, Capped, Sterile Dressing Applied Secured by: Suture Post procedure dressing: Chlorhexidine disc (Biopatch) Post Procedure X-Ray: Yes Patient Tolerated Procedure: Well Immediate Complications: None
[2017-03-22 11:57] LABS: BANDS 18 % (0-2); LYMPHOCYTE 6 % (20-40); MONOCYTE 2 % (0-10); NEUTROPHIL 74 % (50-75); PLATELET ESTIMATE DECREASED (NORMAL); TOTAL CELLS COUNTED 100
[2017-03-22 11:58] LABS: ANISOCYTOSIS SLIGHT; HYPOCHROMIC SLIGHT; OVALOCYTES SLIGHT; POIKILOCYTOSIS SLIGHT; TEARDROP CELLS SLIGHT
[2017-03-22] MEDS: Multiple Vitamins Oral Solution GT SCH (13:14)
--- NOTE | 2017-03-22 16:27 | CP.CCUPN ---
CCU Subjective - Physician Review Events Since Last Encounter (Free Text): 03/22/17 16:21 sedated and intubated. CCU Objective - Vital Signs / Intake & Output Vital Signs (Last 4 hours): Vital Signs Pulse Resp BP Pulse Ox 03/22/17 15:00 92 H 19 105/54 L 100 03/22/17 14:00 94 H 24 107/55 L 100 03/22/17 13:00 92 H 22 96/62 L 100 Intake and Output (Last 8hrs): Intake & Output 03/22/17 03/22/17 03/22/17 06:59 14:59 22:59 Intake Total 602 3043.9 307.6 Output Total 250 250 60 Balance 352 2793.9 247.6 Weight 128 lb Intake: IV 40 Intake, IV Amount 602 2493.9 287.6 Left External Jugular 2 2025 Right Antecubital 600 225.1 Right Distal Port 100 Subclavian Right Medial Port 125 250 Subclavian Right Proximal Port 18.8 37.6 Subclavian Tube Feeding 10 20 Other 500 Output: Urine 250 250 60 Urethral (Siu) 250 250 60 - Physical Exam Head: Positive for: Atraumatic, Normocephalic Pupils: Positive for: PERRL Conjunctiva: Positive for: Normal Mouth: Positive for: Moist Mucous Membranes Respiratory/Chest: Positive for: Clear to Auscultation, Respiratory Distress Cardiovascular: Positive for: Regular Rate and Rhythm Abdomen: Positive for: Normal Bowel Sounds. Negative for: Tenderness, Distention Upper Extremity: Positive for: Normal Inspection Lower Extremity: Positive for: Other (sacral decubitus) Psychiatric: Negative for: Alert, Oriented x 3 - Medications Active Medications: Active Medications Generic Name Dose Route Start Last Admin Trade Name Freq PRN Reason Stop Dose Admin Albuterol/Ipratropium 3 ml 03/22/17 02:00 03/22/17 13:45 Duoneb 3 Mg/0.5 Mg (3 Ml) Ud INH 3 ml RQ6 AUGUST Administration Heparin Sodium (Porcine) 5,000 units 03/22/17 10:15 03/22/17 11:17 Heparin SC 5,000 units Q12H AUGUST Administration Piperacillin Sod/Tazobactam Sod 2.25 gm in 50 mls @ 100 mls/hr 03/21/17 21:00 03/22/17 13:22 Zosyn 2.25 Gm Iv Premix IVPB 100 mls/hr Q8H AUGUST Administration Norepinephrine Bitartrate 8 mg 258 mls @ 7.74 mls/hr 03/22/17 08:36 03/22/17 12:00 / Sodium Chloride IV 10 mcg/min .Q24H PRN 19.35 mls/hr TITRATE PER MD ORDER Titration Protocol 4 MCG/MIN Vancomycin/Sodium Chloride 1 gm in 200 mls @ 133.333 mls/hr 03/22/17 18:00 Vancomycin 1 Gm/Ns 200 Ml IVPB 03/27/17 18:01 Q24H AUGUST Sodium Bicarbonate 75 meq/ 1,075 mls @ 125 mls/hr 03/22/17 10:15 03/22/17 11: 15 Sodium Chloride IV 125 mls/hr .[id number] AUGUST Administration Insulin Aspart 0 unit 03/22/17 05:15 03/22/17 11:31 Novolog SC Not Given Q6H AUGUST Protocol Multivitamins/Vitamin C 5 ml 03/22/17 10:00 03/22/17 13:14 Multi-Delyn Liquid GT 5 ml DAILY AUGUST Administration Pantoprazole Sodium 40 mg 03/22/17 10:00 03/22/17 09:24 Protonix Inj IVP 40 mg DAILY AUGUST Administration - Patient Studies Lab Studies: Lab Studies 03/22/17 03/22/17 03/22/17 Range/Units 11:28 09:15 08:01 WBC (4.8-10.8) K/uL RBC (4.40-5.90) Mil/uL Hgb (12.0-18.0) g/dL Hct (35.0-51.0) % MCV (80.0-94.0) fL MCH (27.0-31.0) pg MCHC (33.0-37.0) g/dL RDW (11.5-14.5) % Plt Count (130-400) K/uL MPV (7.2-11.7) fL Neut % (Auto) (50.0-75.0) % Lymph % (Auto) (20.0-40.0) % Kendall % (Auto) (0.0-10.0) % Eos % (Auto) (0.0-4.0) % Baso % (Auto) (0.0-2.0) % Neut # (1.8-7.0) K/uL Lymph # (1.0-4.3) K/uL Kendall # (0.0-0.8) K/uL Eos # (0.0-0.7) K/uL Baso # (0.0-0.2) K/uL Neutrophils % (Manual) (50-75) % Band Neutrophils % (0-2) % Lymphocytes % (Manual) (20-40) % Monocytes % (Manual) (0-10) % Platelet Estimate (NORMAL) Large Platelets Polychromasia Hypochromasia (manual) Poikilocytosis (manual Anisocytosis (manual) Macrocytosis (manual) Tear Drop Cells Ovalocytes Rouleaux PT (9.7-12.2) SECONDS INR APTT (21-34) SECONDS Puncture Site pCO2 (35-45) mm/Hg pO2 (30-55) mm/Hg HCO3 (21-28) mmol/L ABG pH (7.35-7.45) ABG Total CO2 (22-28) mmol/L ABG O2 Saturation (95-98) % ABG Base Excess (-2.0-3.0) mmol/L Heriberto Test ABG Potassium (3.6-5.2) mmol/L VBG pH (7.32-7.43) VBG pCO2 (40-60) mmHg VBG HCO3 mmol/L VBG Total CO2 (22-28) mmol/L VBG O2 Sat (Calc) (40-65) % VBG Base Excess (0.0-2.0) mmol/L VBG Potassium (3.6-5.2) mmol/L A-a O2 Difference mm/Hg Respiratory Index Glucose (75-110) mg/dl Lactate (0.7-2.1) mmol/L Vent Mode Mechanical Rate FiO2 % Tidal Volume PEEP Crit Value Called To Crit Value Called By Crit Value Read Back Blood Gas Notified Time Sodium (132-148) mmol/L Potassium (3.6-5.2) mmol/L Chloride (98-107) mmol/L Carbon Dioxide (22-30) mmol/L Anion Gap (10-20) BUN (9-20) mg/dL Creatinine (0.8-1.5) mg/dL Est GFR ( Amer) Est GFR (Non-Af Amer) POC Glucose (mg/dL) 128 H (65-110) mg/dL Random Glucose (75-110) mg/dL Hemoglobin A1c (4.2-6.5) % Serum Osmolality (272-300) mosm/kg Lactic Acid (0.7-2.1) mmol/L Calcium (8.6-10.4) mg/dl Phosphorus (2.5-4.5) mg/dL Magnesium (1.6-2.3) mg/dL Iron (49-181) ug/dL TIBC (250-450) ug/dL % Saturation (20-55) Total Bilirubin (0.2-1.3) mg/dL AST (17-59) U/L ALT (21-72) U/L Alkaline Phosphatase (38-126) U/L CK-MB (Mass) (0.0-3.38) ng/mL Troponin I (0.00-0.120) ng/mL NT-Pro-B Natriuret Pep (0-900) pg/mL Total Protein (6.3-8.3) g/dL Albumin (3.5-5.0) g/dL Globulin (2.2-3.9) gm/dL Albumin/Globulin Ratio (1.0-2.1) Lipase (23-300) U/L TSH 3rd Generation (0.46-4.68) mIU/L Arterial Blood Potassium (3.6-5.2) mmol/L Venous Blood Potassium (3.6-5.2) mmol/L Urine Color (YELLOW) Urine Clarity (Clear) Urine pH (5.0-8.0) Ur Specific Levasy (1.003-1.030) Urine Protein (NEGATIVE) mg/dL Urine Glucose (UA) (Normal) mg/dL Urine Ketones (NEGATIVE) mg/dL Urine Blood (NEGATIVE) Urine Nitrate (NEGATIVE) Urine Bilirubin (NEGATIVE) Urine Urobilinogen (0.2-1.0) mg/dL Ur Leukocyte Esterase (Negative) Adolfo/uL Urine WBC (Auto) (0-5) /hpf Urine RBC (Auto) (0-3) /hpf Ur Squamous Epith Cells (0-5) /hpf Urine Bacteria (<OCC) Urine Osmolality 563 (300-1000) mosm/kg Ur Random Creatinine 75.7 mg/dL Ur Random Sodium 24 mmol/L Ur Random Uric Acid 15.0 mg/dL Gastric Occult Blood Positive H (NEGATIVE) Urine Opiates Screen Negative (NEGATIVE) Urine Methadone Screen Negative (NEGATIVE) Ur Barbiturates Screen Negative (NEGATIVE) Ur Phencyclidine Scrn Negative (NEGATIVE) Ur Amphetamines Screen Negative (NEGATIVE) U Benzodiazepines Scrn Negative (NEGATIVE) U Oth Cocaine Metabols Negative (NEGATIVE) U Cannabinoids Screen Negative (NEGATIVE) Serum Ketones (NEGATIVE) Blood Type Antibody Screen 03/22/17 03/22/17 03/22/17 Range/Units 06:39 06:39 06:39 WBC (4.8-10.8) K/uL RBC (4.40-5.90) Mil/uL Hgb (12.0-18.0) g/dL Hct (35.0-51.0) % MCV (80.0-94.0) fL MCH (27.0-31.0) pg MCHC (33.0-37.0) g/dL RDW (11.5-14.5) % Plt Count (130-400) K/uL MPV (7.2-11.7) fL Neut % (Auto) (50.0-75.0) % Lymph % (Auto) (20.0-40.0) % Kendall % (Auto) (0.0-10.0) % Eos % (Auto) (0.0-4.0) % Baso % (Auto) (0.0-2.0) % Neut # (1.8-7.0) K/uL Lymph # (1.0-4.3) K/uL Kendall # (0.0-0.8) K/uL Eos # (0.0-0.7) K/uL Baso # (0.0-0.2) K/uL Neutrophils % (Manual) (50-75) % Band Neutrophils % (0-2) % Lymphocytes % (Manual) (20-40) % Monocytes % (Manual) (0-10) % Platelet Estimate (NORMAL) Large Platelets Polychromasia Hypochromasia (manual) Poikilocytosis (manual Anisocytosis (manual) Macrocytosis (manual) Tear Drop Cells Ovalocytes Rouleaux PT (9.7-12.2) SECONDS INR APTT (21-34) SECONDS Puncture Site pCO2 (35-45) mm/Hg pO2 (30-55) mm/Hg HCO3 (21-28) mmol/L ABG pH (7.35-7.45) ABG Total CO2 (22-28) mmol/L ABG O2 Saturation (95-98) % ABG Base Excess (-2.0-3.0) mmol/L Heriberto Test ABG Potassium (3.6-5.2) mmol/L VBG pH (7.32-7.43) VBG pCO2 (40-60) mmHg VBG HCO3 mmol/L VBG Total CO2 (22-28) mmol/L VBG O2 Sat (Calc) (40-65) % VBG Base Excess (0.0-2.0) mmol/L VBG Potassium (3.6-5.2) mmol/L A-a O2 Difference mm/Hg Respiratory Index Glucose (75-110) mg/dl Lactate (0.7-2.1) mmol/L Vent Mode Mechanical Rate FiO2 % Tidal Volume PEEP Crit Value Called To Crit Value Called By Crit Value Read Back Blood Gas Notified Time Sodium 168 H* (132-148) mmol/L Potassium 4.3 (3.6-5.2) mmol/L Chloride 140 H (98-107) mmol/L Carbon Dioxide 19 L (22-30) mmol/L Anion Gap 13 (10-20) BUN 113 H* (9-20) mg/dL Creatinine 2.2 H (0.8-1.5) mg/dL Est GFR ( Amer) 35 Est GFR (Non-Af Amer) 29 POC Glucose (mg/dL) (65-110) mg/dL Random Glucose 116 H (75-110) mg/dL Hemoglobin A1c (4.2-6.5) % Serum Osmolality (272-300) mosm/kg Lactic Acid 4.6 H* (0.7-2.1) mmol/L Calcium 7.3 L (8.6-10.4) mg/dl Phosphorus 2.5 (2.5-4.5) mg/dL Magnesium 2.8 H (1.6-2.3) mg/dL Iron 14 L (49-181) ug/dL TIBC 194 L (250-450) ug/dL % Saturation 7 L (20-55) Total Bilirubin 0.9 (0.2-1.3) mg/dL AST 56 (17-59) U/L ALT 43 (21-72) U/L Alkaline Phosphatase 224 H (38-126) U/L CK-MB (Mass) (0.0-3.38) ng/mL Troponin I (0.00-0.120) ng/mL NT-Pro-B Natriuret Pep (0-900) pg/mL Total Protein 7.9 (6.3-8.3) g/dL Albumin 2.8 L (3.5-5.0) g/dL Globulin 5.1 H (2.2-3.9) gm/dL Albumin/Globulin Ratio 0.5 L (1.0-2.1) Lipase (23-300) U/L TSH 3rd Generation (0.46-4.68) mIU/L Arterial Blood Potassium (3.6-5.2) mmol/L Venous Blood Potassium (3.6-5.2) mmol/L Urine Color (YELLOW) Urine Clarity (Clear) Urine pH (5.0-8.0) Ur Specific Levasy (1.003-1.030) Urine Protein (NEGATIVE) mg/dL Urine Glucose (UA) (Normal) mg/dL Urine Ketones (NEGATIVE) mg/dL Urine Blood (NEGATIVE) Urine Nitrate (NEGATIVE) Urine Bilirubin (NEGATIVE) Urine Urobilinogen (0.2-1.0) mg/dL Ur Leukocyte Esterase (Negative) Adolfo/uL Urine WBC (Auto) (0-5) /hpf Urine RBC (Auto) (0-3) /hpf Ur Squamous Epith Cells (0-5) /hpf Urine Bacteria (<OCC) Urine Osmolality (300-1000) mosm/kg Ur Random Creatinine mg/dL Ur Random Sodium mmol/L Ur Random Uric Acid mg/dL Gastric Occult Blood (NEGATIVE) Urine Opiates Screen (NEGATIVE) Urine Methadone Screen (NEGATIVE) Ur Barbiturates Screen (NEGATIVE) Ur Phencyclidine Scrn (NEGATIVE) Ur Amphetamines Screen (NEGATIVE) U Benzodiazepines Scrn (NEGATIVE) U Oth Cocaine Metabols (NEGATIVE) U Cannabinoids Screen (NEGATIVE) Serum Ketones (NEGATIVE) Blood Type Antibody Screen 03/22/17 03/22/17 03/22/17 Range/Units 06:38 05:44 04:40 WBC 11.2 H (4.8-10.8) K/uL RBC 2.85 L (4.40-5.90) Mil/uL Hgb 9.0 L (12.0-18.0) g/dL Hct 29.4 L (35.0-51.0) % MCV 103.3 H (80.0-94.0) fL MCH 31.5 H (27.0-31.0) pg MCHC 30.5 L (33.0-37.0) g/dL RDW 17.6 H (11.5-14.5) % Plt Count 85 L D (130-400) K/uL MPV 14.6 H (7.2-11.7) fL Neut % (Auto) 85.1 H (50.0-75.0) % Lymph % (Auto) 10.3 L (20.0-40.0) % Kendall % (Auto) 4.2 (0.0-10.0) % Eos % (Auto) 0.1 (0.0-4.0) % Baso % (Auto) 0.3 (0.0-2.0) % Neut # 9.5 H (1.8-7.0) K/uL Lymph # 1.2 (1.0-4.3) K/uL Kendall # 0.5 (0.0-0.8) K/uL Eos # 0.0 (0.0-0.7) K/uL Baso # 0.0 (0.0-0.2) K/uL Neutrophils % (Manual) 74 (50-75) % Band Neutrophils % 18 H* (0-2) % Lymphocytes % (Manual) 6 L (20-40) % Monocytes % (Manual) 2 (0-10) % Platelet Estimate Decreased L (NORMAL) Large Platelets Polychromasia Hypochromasia (manual) Slight Poikilocytosis (manual Slight Anisocytosis (manual) Slight Macrocytosis (manual) Moderate Tear Drop Cells Slight Ovalocytes Slight Rouleaux PT (9.7-12.2) SECONDS INR APTT (21-34) SECONDS Puncture Site Lb pCO2 25 L (35-45) mm/Hg pO2 226 H (30-55) mm/Hg HCO3 23.0 (21-28) mmol/L ABG pH 7.49 H (7.35-7.45) ABG Total CO2 19.9 L (22-28) mmol/L ABG O2 Saturation 99.6 H (95-98) % ABG Base Excess -2.6 L (-2.0-3.0) mmol/L Heriberto Test Na ABG Potassium 3.9 (3.6-5.2) mmol/L VBG pH (7.32-7.43) VBG pCO2 (40-60) mmHg VBG HCO3 mmol/L VBG Total CO2 (22-28) mmol/L VBG O2 Sat (Calc) (40-65) % VBG Base Excess (0.0-2.0) mmol/L VBG Potassium (3.6-5.2) mmol/L A-a O2 Difference 456.0 mm/Hg Respiratory Index 2.0 Glucose 127 H (75-110) mg/dl Lactate 3.3 H (0.7-2.1) mmol/L Vent Mode Prvc Mechanical Rate 14 FiO2 100.0 % Tidal Volume 450 PEEP 5 Crit Value Called To Carly jorge/rn Crit Value Called By Kris webb/rt Crit Value Read Back Y Blood Gas Notified Time 450 Sodium 171.0 H* (132-148) mmol/L Potassium (3.6-5.2) mmol/L Chloride 144.0 H (98-107) mmol/L Carbon Dioxide (22-30) mmol/L Anion Gap (10-20) BUN (9-20) mg/dL Creatinine (0.8-1.5) mg/dL Est GFR ( Amer) Est GFR (Non-Af Amer) POC Glucose (mg/dL) 140 H (65-110) mg/dL Random Glucose (75-110) mg/dL Hemoglobin A1c (4.2-6.5) % Serum Osmolality (272-300) mosm/kg Lactic Acid (0.7-2.1) mmol/L Calcium (8.6-10.4) mg/dl Phosphorus (2.5-4.5) mg/dL Magnesium (1.6-2.3) mg/dL Iron (49-181) ug/dL TIBC (250-450) ug/dL % Saturation (20-55) Total Bilirubin (0.2-1.3) mg/dL AST (17-59) U/L ALT (21-72) U/L Alkaline Phosphatase (38-126) U/L CK-MB (Mass) (0.0-3.38) ng/mL Troponin I (0.00-0.120) ng/mL NT-Pro-B Natriuret Pep (0-900) pg/mL Total Protein (6.3-8.3) g/dL Albumin (3.5-5.0) g/dL Globulin (2.2-3.9) gm/dL Albumin/Globulin Ratio (1.0-2.1) Lipase (23-300) U/L TSH 3rd Generation (0.46-4.68) mIU/L Arterial Blood Potassium 3.9 (3.6-5.2) mmol/L Venous Blood Potassium (3.6-5.2) mmol/L Urine Color (YELLOW) Urine Clarity (Clear) Urine pH (5.0-8.0) Ur Specific Levasy (1.003-1.030) Urine Protein (NEGATIVE) mg/dL Urine Glucose (UA) (Normal) mg/dL Urine Ketones (NEGATIVE) mg/dL Urine Blood (NEGATIVE) Urine Nitrate (NEGATIVE) Urine Bilirubin (NEGATIVE) Urine Urobilinogen (0.2-1.0) mg/dL Ur Leukocyte Esterase (Negative) Adolfo/uL Urine WBC (Auto) (0-5) /hpf Urine RBC (Auto) (0-3) /hpf Ur Squamous Epith Cells (0-5) /hpf Urine Bacteria (<OCC) Urine Osmolality (300-1000) mosm/kg Ur Random Creatinine mg/dL Ur Random Sodium mmol/L Ur Random Uric Acid mg/dL Gastric Occult Blood (NEGATIVE) Urine Opiates Screen (NEGATIVE) Urine Methadone Screen (NEGATIVE) Ur Barbiturates Screen (NEGATIVE) Ur Phencyclidine Scrn (NEGATIVE) Ur Amphetamines Screen (NEGATIVE) U Benzodiazepines Scrn (NEGATIVE) U Oth Cocaine Metabols (NEGATIVE) U Cannabinoids Screen (NEGATIVE) Serum Ketones (NEGATIVE) Blood Type Antibody Screen 03/22/17 03/22/17 03/21/17 Range/Units 01:11 00:06 23:13 WBC (4.8-10.8) K/uL RBC (4.40-5.90) Mil/uL Hgb (12.0-18.0) g/dL Hct (35.0-51.0) % MCV (80.0-94.0) fL MCH (27.0-31.0) pg MCHC (33.0-37.0) g/dL RDW (11.5-14.5) % Plt Count (130-400) K/uL MPV (7.2-11.7) fL Neut % (Auto) (50.0-75.0) % Lymph % (Auto) (20.0-40.0) % Kendall % (Auto) (0.0-10.0) % Eos % (Auto) (0.0-4.0) % Baso % (Auto) (0.0-2.0) % Neut # (1.8-7.0) K/uL Lymph # (1.0-4.3) K/uL Kendall # (0.0-0.8) K/uL Eos # (0.0-0.7) K/uL Baso # (0.0-0.2) K/uL Neutrophils % (Manual) (50-75) % Band Neutrophils % (0-2) % Lymphocytes % (Manual) (20-40) % Monocytes % (Manual) (0-10) % Platelet Estimate (NORMAL) Large Platelets Polychromasia Hypochromasia (manual) Poikilocytosis (manual Anisocytosis (manual) Macrocytosis (manual) Tear Drop Cells Ovalocytes Rouleaux PT (9.7-12.2) SECONDS INR APTT (21-34) SECONDS Puncture Site pCO2 (35-45) mm/Hg pO2 (30-55) mm/Hg HCO3 (21-28) mmol/L ABG pH (7.35-7.45) ABG Total CO2 (22-28) mmol/L ABG O2 Saturation (95-98) % ABG Base Excess (-2.0-3.0) mmol/L Heriberto Test ABG Potassium (3.6-5.2) mmol/L VBG pH (7.32-7.43) VBG pCO2 (40-60) mmHg VBG HCO3 mmol/L VBG Total CO2 (22-28) mmol/L VBG O2 Sat (Calc) (40-65) % VBG Base Excess (0.0-2.0) mmol/L VBG Potassium (3.6-5.2) mmol/L A-a O2 Difference mm/Hg Respiratory Index Glucose (75-110) mg/dl Lactate (0.7-2.1) mmol/L Vent Mode Mechanical Rate FiO2 % Tidal Volume PEEP Crit Value Called To Crit Value Called By Crit Value Read Back Blood Gas Notified Time Sodium (132-148) mmol/L Potassium (3.6-5.2) mmol/L Chloride (98-107) mmol/L Carbon Dioxide (22-30) mmol/L Anion Gap (10-20) BUN (9-20) mg/dL Creatinine (0.8-1.5) mg/dL Est GFR ( Amer) Est GFR (Non-Af Amer) POC Glucose (mg/dL) 109 119 H 152 H (65-110) mg/dL Random Glucose (75-110) mg/dL Hemoglobin A1c (4.2-6.5) % Serum Osmolality (272-300) mosm/kg Lactic Acid (0.7-2.1) mmol/L Calcium (8.6-10.4) mg/dl Phosphorus (2.5-4.5) mg/dL Magnesium (1.6-2.3) mg/dL Iron (49-181) ug/dL TIBC (250-450) ug/dL % Saturation (20-55) Total Bilirubin (0.2-1.3) mg/dL AST (17-59) U/L ALT (21-72) U/L Alkaline Phosphatase (38-126) U/L CK-MB (Mass) (0.0-3.38) ng/mL Troponin I (0.00-0.120) ng/mL NT-Pro-B Natriuret Pep (0-900) pg/mL Total Protein (6.3-8.3) g/dL Albumin (3.5-5.0) g/dL Globulin (2.2-3.9) gm/dL Albumin/Globulin Ratio (1.0-2.1) Lipase (23-300) U/L TSH 3rd Generation (0.46-4.68) mIU/L Arterial Blood Potassium (3.6-5.2) mmol/L Venous Blood Potassium (3.6-5.2) mmol/L Urine Color (YELLOW) Urine Clarity (Clear) Urine pH (5.0-8.0) Ur Specific Levasy (1.003-1.030) Urine Protein (NEGATIVE) mg/dL Urine Glucose (UA) (Normal) mg/dL Urine Ketones (NEGATIVE) mg/dL Urine Blood (NEGATIVE) Urine Nitrate (NEGATIVE) Urine Bilirubin (NEGATIVE) Urine Urobilinogen (0.2-1.0) mg/dL Ur Leukocyte Esterase (Negative) Adolfo/uL Urine WBC (Auto) (0-5) /hpf Urine RBC (Auto) (0-3) /hpf Ur Squamous Epith Cells (0-5) /hpf Urine Bacteria (<OCC) Urine Osmolality (300-1000) mosm/kg Ur Random Creatinine mg/dL Ur Random Sodium mmol/L Ur Random Uric Acid mg/dL Gastric Occult Blood (NEGATIVE) Urine Opiates Screen (NEGATIVE) Urine Methadone Screen (NEGATIVE) Ur Barbiturates Screen (NEGATIVE) Ur Phencyclidine Scrn (NEGATIVE) Ur Amphetamines Screen (NEGATIVE) U Benzodiazepines Scrn (NEGATIVE) U Oth Cocaine Metabols (NEGATIVE) U Cannabinoids Screen (NEGATIVE) Serum Ketones (NEGATIVE) Blood Type Antibody Screen 03/21/17 03/21/17 03/21/17 Range/Units 22:32 21:13 20:51 WBC (4.8-10.8) K/uL RBC (4.40-5.90) Mil/uL Hgb (12.0-18.0) g/dL Hct (35.0-51.0) % MCV (80.0-94.0) fL MCH (27.0-31.0) pg MCHC (33.0-37.0) g/dL RDW (11.5-14.5) % Plt Count (130-400) K/uL MPV (7.2-11.7) fL Neut % (Auto) (50.0-75.0) % Lymph % (Auto) (20.0-40.0) % Kendall % (Auto) (0.0-10.0) % Eos % (Auto) (0.0-4.0) % Baso % (Auto) (0.0-2.0) % Neut # (1.8-7.0) K/uL Lymph # (1.0-4.3) K/uL Kendall # (0.0-0.8) K/uL Eos # (0.0-0.7) K/uL Baso # (0.0-0.2) K/uL Neutrophils % (Manual) (50-75) % Band Neutrophils % (0-2) % Lymphocytes % (Manual) (20-40) % Monocytes % (Manual) (0-10) % Platelet Estimate (NORMAL) Large Platelets Polychromasia Hypochromasia (manual) Poikilocytosis (manual Anisocytosis (manual) Macrocytosis (manual) Tear Drop Cells Ovalocytes Rouleaux PT (9.7-12.2) SECONDS INR APTT (21-34) SECONDS Puncture Site pCO2 (35-45) mm/Hg pO2 (30-55) mm/Hg HCO3 (21-28) mmol/L ABG pH (7.35-7.45) ABG Total CO2 (22-28) mmol/L ABG O2 Saturation (95-98) % ABG Base Excess (-2.0-3.0) mmol/L Heriberto Test ABG Potassium (3.6-5.2) mmol/L VBG pH (7.32-7.43) VBG pCO2 (40-60) mmHg VBG HCO3 mmol/L VBG Total CO2 (22-28) mmol/L VBG O2 Sat (Calc) (40-65) % VBG Base Excess (0.0-2.0) mmol/L VBG Potassium (3.6-5.2) mmol/L A-a O2 Difference mm/Hg Respiratory Index Glucose (75-110) mg/dl Lactate (0.7-2.1) mmol/L Vent Mode Mechanical Rate FiO2 % Tidal Volume PEEP Crit Value Called To Crit Value Called By Crit Value Read Back Blood Gas Notified Time Sodium (132-148) mmol/L Potassium (3.6-5.2) mmol/L Chloride (98-107) mmol/L Carbon Dioxide (22-30) mmol/L Anion Gap (10-20) BUN (9-20) mg/dL Creatinine (0.8-1.5) mg/dL Est GFR ( Amer) Est GFR (Non-Af Amer) POC Glucose (mg/dL) 208 H 305 H (65-110) mg/dL Random Glucose (75-110) mg/dL Hemoglobin A1c (4.2-6.5) % Serum Osmolality 414 H (272-300) mosm/kg Lactic Acid (0.7-2.1) mmol/L Calcium (8.6-10.4) mg/dl Phosphorus (2.5-4.5) mg/dL Magnesium (1.6-2.3) mg/dL Iron (49-181) ug/dL TIBC (250-450) ug/dL % Saturation (20-55) Total Bilirubin (0.2-1.3) mg/dL AST (17-59) U/L ALT (21-72) U/L Alkaline Phosphatase (38-126) U/L CK-MB (Mass) (0.0-3.38) ng/mL Troponin I (0.00-0.120) ng/mL NT-Pro-B Natriuret Pep (0-900) pg/mL Total Protein (6.3-8.3) g/dL Albumin (3.5-5.0) g/dL Globulin (2.2-3.9) gm/dL Albumin/Globulin Ratio (1.0-2.1) Lipase (23-300) U/L TSH 3rd Generation (0.46-4.68) mIU/L Arterial Blood Potassium (3.6-5.2) mmol/L Venous Blood Potassium (3.6-5.2) mmol/L Urine Color (YELLOW) Urine Clarity (Clear) Urine pH (5.0-8.0) Ur Specific Levasy (1.003-1.030) Urine Protein (NEGATIVE) mg/dL Urine Glucose (UA) (Normal) mg/dL Urine Ketones (NEGATIVE) mg/dL Urine Blood (NEGATIVE) Urine Nitrate (NEGATIVE) Urine Bilirubin (NEGATIVE) Urine Urobilinogen (0.2-1.0) mg/dL Ur Leukocyte Esterase (Negative) Adolfo/uL Urine WBC (Auto) (0-5) /hpf Urine RBC (Auto) (0-3) /hpf Ur Squamous Epith Cells (0-5) /hpf Urine Bacteria (<OCC) Urine Osmolality (300-1000) mosm/kg Ur Random Creatinine mg/dL Ur Random Sodium mmol/L Ur Random Uric Acid mg/dL Gastric Occult Blood (NEGATIVE) Urine Opiates Screen (NEGATIVE) Urine Methadone Screen (NEGATIVE) Ur Barbiturates Screen (NEGATIVE) Ur Phencyclidine Scrn (NEGATIVE) Ur Amphetamines Screen (NEGATIVE) U Benzodiazepines Scrn (NEGATIVE) U Oth Cocaine Metabols (NEGATIVE) U Cannabinoids Screen (NEGATIVE) Serum Ketones (NEGATIVE) Blood Type Antibody Screen 03/21/17 03/21/17 03/21/17 Range/Units 20:42 20:24 19:36 WBC (4.8-10.8) K/uL RBC (4.40-5.90) Mil/uL Hgb (12.0-18.0) g/dL Hct (35.0-51.0) % MCV (80.0-94.0) fL MCH (27.0-31.0) pg MCHC (33.0-37.0) g/dL RDW (11.5-14.5) % Plt Count (130-400) K/uL MPV (7.2-11.7) fL Neut % (Auto) (50.0-75.0) % Lymph % (Auto) (20.0-40.0) % Kendall % (Auto) (0.0-10.0) % Eos % (Auto) (0.0-4.0) % Baso % (Auto) (0.0-2.0) % Neut # (1.8-7.0) K/uL Lymph # (1.0-4.3) K/uL Kendall # (0.0-0.8) K/uL Eos # (0.0-0.7) K/uL Baso # (0.0-0.2) K/uL Neutrophils % (Manual) (50-75) % Band Neutrophils % (0-2) % Lymphocytes % (Manual) (20-40) % Monocytes % (Manual) (0-10) % Platelet Estimate (NORMAL) Large Platelets Polychromasia Hypochromasia (manual) Poikilocytosis (manual Anisocytosis (manual) Macrocytosis (manual) Tear Drop Cells Ovalocytes Rouleaux PT (9.7-12.2) SECONDS INR APTT (21-34) SECONDS Puncture Site Lba pCO2 28 L (35-45) mm/Hg pO2 366 H 27 L (30-55) mm/Hg HCO3 21.6 (21-28) mmol/L ABG pH 7.43 (7.35-7.45) ABG Total CO2 19.5 L (22-28) mmol/L ABG O2 Saturation 100.6 H (95-98) % ABG Base Excess -4.4 L (-2.0-3.0) mmol/L Heriberto Test Yes ABG Potassium 3.3 L (3.6-5.2) mmol/L VBG pH 7.28 L (7.32-7.43) VBG pCO2 57 (40-60) mmHg VBG HCO3 22.6 mmol/L VBG Total CO2 28.5 H (22-28) mmol/L VBG O2 Sat (Calc) 52.7 (40-65) % VBG Base Excess -1.0 L (0.0-2.0) mmol/L VBG Potassium 4.5 (3.6-5.2) mmol/L A-a O2 Difference 312.0 mm/Hg Respiratory Index 0.9 Glucose 256 H 345 H (75-110) mg/dl Lactate 4.8 H* 3.2 H (0.7-2.1) mmol/L Vent Mode Prvc Mechanical Rate 14 FiO2 100.0 % Tidal Volume 450 PEEP 5 Crit Value Called To Dr. nora melendez Crit Value Called By Bryant ba Crit Value Read Back Y Y Blood Gas Notified Time 2044 1938 Sodium 173.0 H* 176.0 H* (132-148) mmol/L Potassium (3.6-5.2) mmol/L Chloride 147.0 H 141.0 H (98-107) mmol/L Carbon Dioxide (22-30) mmol/L Anion Gap (10-20) BUN (9-20) mg/dL Creatinine (0.8-1.5) mg/dL Est GFR ( Amer) Est GFR (Non-Af Amer) POC Glucose (mg/dL) (65-110) mg/dL Random Glucose (75-110) mg/dL Hemoglobin A1c (4.2-6.5) % Serum Osmolality (272-300) mosm/kg Lactic Acid (0.7-2.1) mmol/L Calcium (8.6-10.4) mg/dl Phosphorus (2.5-4.5) mg/dL Magnesium (1.6-2.3) mg/dL Iron (49-181) ug/dL TIBC (250-450) ug/dL % Saturation (20-55) Total Bilirubin (0.2-1.3) mg/dL AST (17-59) U/L ALT (21-72) U/L Alkaline Phosphatase (38-126) U/L CK-MB (Mass) (0.0-3.38) ng/mL Troponin I (0.00-0.120) ng/mL NT-Pro-B Natriuret Pep 902 H (0-900) pg/mL Total Protein (6.3-8.3) g/dL Albumin (3.5-5.0) g/dL Globulin (2.2-3.9) gm/dL Albumin/Globulin Ratio (1.0-2.1) Lipase (23-300) U/L TSH 3rd Generation 3.03 (0.46-4.68) mIU/L Arterial Blood Potassium 3.3 L (3.6-5.2) mmol/L Venous Blood Potassium 4.5 (3.6-5.2) mmol/L Urine Color (YELLOW) Urine Clarity (Clear) Urine pH (5.0-8.0) Ur Specific Levasy (1.003-1.030) Urine Protein (NEGATIVE) mg/dL Urine Glucose (UA) (Normal) mg/dL Urine Ketones (NEGATIVE) mg/dL Urine Blood (NEGATIVE) Urine Nitrate (NEGATIVE) Urine Bilirubin (NEGATIVE) Urine Urobilinogen (0.2-1.0) mg/dL Ur Leukocyte Esterase (Negative) Adolfo/uL Urine WBC (Auto) (0-5) /hpf Urine RBC (Auto) (0-3) /hpf Ur Squamous Epith Cells (0-5) /hpf Urine Bacteria (<OCC) Urine Osmolality (300-1000) mosm/kg Ur Random Creatinine mg/dL Ur Random Sodium mmol/L Ur Random Uric Acid mg/dL Gastric Occult Blood (NEGATIVE) Urine Opiates Screen (NEGATIVE) Urine Methadone Screen (NEGATIVE) Ur Barbiturates Screen (NEGATIVE) Ur Phencyclidine Scrn (NEGATIVE) Ur Amphetamines Screen (NEGATIVE) U Benzodiazepines Scrn (NEGATIVE) U Oth Cocaine Metabols (NEGATIVE) U Cannabinoids Screen (NEGATIVE) Serum Ketones Negative (NEGATIVE) Blood Type Antibody Screen 01/08/0103/21/17 03/21/17 Range/Units 19:18 19:13 19:13 WBC (4.8-10.8) K/uL RBC (4.40-5.90) Mil/uL Hgb (12.0-18.0) g/dL Hct (35.0-51.0) % MCV (80.0-94.0) fL MCH (27.0-31.0) pg MCHC (33.0-37.0) g/dL RDW (11.5-14.5) % Plt Count (130-400) K/uL MPV (7.2-11.7) fL Neut % (Auto) (50.0-75.0) % Lymph % (Auto) (20.0-40.0) % Kendall % (Auto) (0.0-10.0) % Eos % (Auto) (0.0-4.0) % Baso % (Auto) (0.0-2.0) % Neut # (1.8-7.0) K/uL Lymph # (1.0-4.3) K/uL Kendall # (0.0-0.8) K/uL Eos # (0.0-0.7) K/uL Baso # (0.0-0.2) K/uL Neutrophils % (Manual) (50-75) % Band Neutrophils % (0-2) % Lymphocytes % (Manual) (20-40) % Monocytes % (Manual) (0-10) % Platelet Estimate (NORMAL) Large Platelets Polychromasia Hypochromasia (manual) Poikilocytosis (manual Anisocytosis (manual) Macrocytosis (manual) Tear Drop Cells Ovalocytes Rouleaux PT (9.7-12.2) SECONDS INR APTT (21-34) SECONDS Puncture Site pCO2 (35-45) mm/Hg pO2 (30-55) mm/Hg HCO3 (21-28) mmol/L ABG pH (7.35-7.45) ABG Total CO2 (22-28) mmol/L ABG O2 Saturation (95-98) % ABG Base Excess (-2.0-3.0) mmol/L Heriberto Test ABG Potassium (3.6-5.2) mmol/L VBG pH (7.32-7.43) VBG pCO2 (40-60) mmHg VBG HCO3 mmol/L VBG Total CO2 (22-28) mmol/L VBG O2 Sat (Calc) (40-65) % VBG Base Excess (0.0-2.0) mmol/L VBG Potassium (3.6-5.2) mmol/L A-a O2 Difference mm/Hg Respiratory Index Glucose (75-110) mg/dl Lactate (0.7-2.1) mmol/L Vent Mode Mechanical Rate FiO2 % Tidal Volume PEEP Crit Value Called To Crit Value Called By Crit Value Read Back Blood Gas Notified Time Sodium 172 H* D (132-148) mmol/L Potassium 4.7 (3.6-5.2) mmol/L Chloride 135 H (98-107) mmol/L Carbon Dioxide 30 (22-30) mmol/L Anion Gap 11 (10-20) BUN 128 H* D (9-20) mg/dL Creatinine 2.4 H (0.8-1.5) mg/dL Est GFR ( Amer) 31 Est GFR (Non-Af Amer) 26 POC Glucose (mg/dL) (65-110) mg/dL Random Glucose 376 H (75-110) mg/dL Hemoglobin A1c 7.6 H (4.2-6.5) % Serum Osmolality (272-300) mosm/kg Lactic Acid (0.7-2.1) mmol/L Calcium 8.2 L (8.6-10.4) mg/dl Phosphorus (2.5-4.5) mg/dL Magnesium (1.6-2.3) mg/dL Iron (49-181) ug/dL TIBC (250-450) ug/dL % Saturation (20-55) Total Bilirubin 0.6 (0.2-1.3) mg/dL AST 66 H (17-59) U/L ALT 45 (21-72) U/L Alkaline Phosphatase 279 H D (38-126) U/L CK-MB (Mass) 0.91 (0.0-3.38) ng/mL Troponin I 0.0420 (0.00-0.120) ng/mL NT-Pro-B Natriuret Pep (0-900) pg/mL Total Protein 8.7 H (6.3-8.3) g/dL Albumin 3.1 L (3.5-5.0) g/dL Globulin 5.6 H (2.2-3.9) gm/dL Albumin/Globulin Ratio 0.6 L (1.0-2.1) Lipase 326 H (23-300) U/L TSH 3rd Generation (0.46-4.68) mIU/L Arterial Blood Potassium (3.6-5.2) mmol/L Venous Blood Potassium (3.6-5.2) mmol/L Urine Color (YELLOW) Urine Clarity (Clear) Urine pH (5.0-8.0) Ur Specific Levasy (1.003-1.030) Urine Protein (NEGATIVE) mg/dL Urine Glucose (UA) (Normal) mg/dL Urine Ketones (NEGATIVE) mg/dL Urine Blood (NEGATIVE) Urine Nitrate (NEGATIVE) Urine Bilirubin (NEGATIVE) Urine Urobilinogen (0.2-1.0) mg/dL Ur Leukocyte Esterase (Negative) Adolfo/uL Urine WBC (Auto) (0-5) /hpf Urine RBC (Auto) (0-3) /hpf Ur Squamous Epith Cells (0-5) /hpf Urine Bacteria (<OCC) Urine Osmolality (300-1000) mosm/kg Ur Random Creatinine mg/dL Ur Random Sodium mmol/L Ur Random Uric Acid mg/dL Gastric Occult Blood (NEGATIVE) Urine Opiates Screen (NEGATIVE) Urine Methadone Screen (NEGATIVE) Ur Barbiturates Screen (NEGATIVE) Ur Phencyclidine Scrn (NEGATIVE) Ur Amphetamines Screen (NEGATIVE) U Benzodiazepines Scrn (NEGATIVE) U Oth Cocaine Metabols (NEGATIVE) U Cannabinoids Screen (NEGATIVE) Serum Ketones (NEGATIVE) Blood Type A POSITIVE Antibody Screen Negative 03/21/17 03/21/17 03/21/17 Range/Units 19:13 19:13 19:08 WBC 11.1 H (4.8-10.8) K/uL RBC 2.87 L (4.40-5.90) Mil/uL Hgb 8.9 L D (12.0-18.0) g/dL Hct 29.4 L (35.0-51.0) % MCV 102.4 H D (80.0-94.0) fL MCH 31.1 H (27.0-31.0) pg MCHC 30.3 L (33.0-37.0) g/dL RDW 17.7 H (11.5-14.5) % Plt Count 121 L D (130-400) K/uL MPV 14.2 H (7.2-11.7) fL Neut % (Auto) 85.1 H (50.0-75.0) % Lymph % (Auto) 8.7 L (20.0-40.0) % Kendall % (Auto) 5.8 (0.0-10.0) % Eos % (Auto) 0.3 (0.0-4.0) % Baso % (Auto) 0.1 (0.0-2.0) % Neut # 9.5 H (1.8-7.0) K/uL Lymph # 1.0 (1.0-4.3) K/uL Kendall # 0.6 (0.0-0.8) K/uL Eos # 0.0 (0.0-0.7) K/uL Baso # 0.0 (0.0-0.2) K/uL Neutrophils % (Manual) 77 H (50-75) % Band Neutrophils % 6 H (0-2) % Lymphocytes % (Manual) 10 L (20-40) % Monocytes % (Manual) 7 (0-10) % Platelet Estimate Slightly decreased L (NORMAL) Large Platelets Present Polychromasia Slight Hypochromasia (manual) Poikilocytosis (manual Anisocytosis (manual) Slight Macrocytosis (manual) Tear Drop Cells Ovalocytes Rouleaux Slight PT 14.1 H (9.7-12.2) SECONDS INR 1.3 APTT 33 (21-34) SECONDS Puncture Site pCO2 (35-45) mm/Hg pO2 (30-55) mm/Hg HCO3 (21-28) mmol/L ABG pH (7.35-7.45) ABG Total CO2 (22-28) mmol/L ABG O2 Saturation (95-98) % ABG Base Excess (-2.0-3.0) mmol/L Heriberto Test ABG Potassium (3.6-5.2) mmol/L VBG pH (7.32-7.43) VBG pCO2 (40-60) mmHg VBG HCO3 mmol/L VBG Total CO2 (22-28) mmol/L VBG O2 Sat (Calc) (40-65) % VBG Base Excess (0.0-2.0) mmol/L VBG Potassium (3.6-5.2) mmol/L A-a O2 Difference mm/Hg Respiratory Index Glucose (75-110) mg/dl Lactate (0.7-2.1) mmol/L Vent Mode Mechanical Rate FiO2 % Tidal Volume PEEP Crit Value Called To Crit Value Called By Crit Value Read Back Blood Gas Notified Time Sodium (132-148) mmol/L Potassium (3.6-5.2) mmol/L Chloride (98-107) mmol/L Carbon Dioxide (22-30) mmol/L Anion Gap (10-20) BUN (9-20) mg/dL Creatinine (0.8-1.5) mg/dL Est GFR ( Amer) Est GFR (Non-Af Amer) POC Glucose (mg/dL) (65-110) mg/dL Random Glucose (75-110) mg/dL Hemoglobin A1c (4.2-6.5) % Serum Osmolality (272-300) mosm/kg Lactic Acid (0.7-2.1) mmol/L Calcium (8.6-10.4) mg/dl Phosphorus (2.5-4.5) mg/dL Magnesium (1.6-2.3) mg/dL Iron (49-181) ug/dL TIBC (250-450) ug/dL % Saturation (20-55) Total Bilirubin (0.2-1.3) mg/dL AST (17-59) U/L ALT (21-72) U/L Alkaline Phosphatase (38-126) U/L CK-MB (Mass) (0.0-3.38) ng/mL Troponin I (0.00-0.120) ng/mL NT-Pro-B Natriuret Pep (0-900) pg/mL Total Protein (6.3-8.3) g/dL Albumin (3.5-5.0) g/dL Globulin (2.2-3.9) gm/dL Albumin/Globulin Ratio (1.0-2.1) Lipase (23-300) U/L TSH 3rd Generation (0.46-4.68) mIU/L Arterial Blood Potassium (3.6-5.2) mmol/L Venous Blood Potassium (3.6-5.2) mmol/L Urine Color Yellow (YELLOW) Urine Clarity Cloudy (Clear) Urine pH 7.5 (5.0-8.0) Ur Specific Levasy 1.020 (1.003-1.030) Urine Protein > 300 (NEGATIVE) mg/dL Urine Glucose (UA) 100 (Normal) mg/dL Urine Ketones Trace (NEGATIVE) mg/dL Urine Blood Large (NEGATIVE) Urine Nitrate Negative (NEGATIVE) Urine Bilirubin Negative (NEGATIVE) Urine Urobilinogen 0.2 (0.2-1.0) mg/dL Ur Leukocyte Esterase Moderate (Negative) Adolfo/uL Urine WBC (Auto) 100 H (0-5) /hpf Urine RBC (Auto) 250 H (0-3) /hpf Ur Squamous Epith Cells 2 (0-5) /hpf Urine Bacteria Rare (<OCC) Urine Osmolality (300-1000) mosm/kg Ur Random Creatinine mg/dL Ur Random Sodium mmol/L Ur Random Uric Acid mg/dL Gastric Occult Blood (NEGATIVE) Urine Opiates Screen (NEGATIVE) Urine Methadone Screen (NEGATIVE) Ur Barbiturates Screen (NEGATIVE) Ur Phencyclidine Scrn (NEGATIVE) Ur Amphetamines Screen (NEGATIVE) U Benzodiazepines Scrn (NEGATIVE) U Oth Cocaine Metabols (NEGATIVE) U Cannabinoids Screen (NEGATIVE) Serum Ketones (NEGATIVE) Blood Type Antibody Screen Laboratory Results - last 24 hr 03/21/17 03/21/17 03/21/17 19:08 19:13 19:13 WBC 11.1 H RBC 2.87 L Hgb 8.9 L D Hct 29.4 L MCV 102.4 H D MCH 31.1 H MCHC 30.3 L RDW 17.7 H Plt Count 121 L D MPV 14.2 H Neut % (Auto) 85.1 H Lymph % (Auto) 8.7 L Kendall % (Auto) 5.8 Eos % (Auto) 0.3 Baso % (Auto) 0.1 Neut # 9.5 H Lymph # 1.0 Kendall # 0.6 Eos # 0.0 Baso # 0.0 Neutrophils % (Manual) 77 H Band Neutrophils % 6 H Lymphocytes % (Manual) 10 L Monocytes % (Manual) 7 Platelet Estimate Slightly decreased L Large Platelets Present Polychromasia Slight Hypochromasia (manual) Poikilocytosis (manual Anisocytosis (manual) Slight Macrocytosis (manual) Tear Drop Cells Ovalocytes Rouleaux Slight PT 14.1 H INR 1.3 APTT 33 Puncture Site pCO2 pO2 HCO3 ABG pH ABG Total CO2 ABG O2 Saturation ABG Base Excess Heriberto Test ABG Potassium VBG pH VBG pCO2 VBG HCO3 VBG Total CO2 VBG O2 Sat (Calc) VBG Base Excess VBG Potassium A-a O2 Difference Respiratory Index Glucose Lactate Vent Mode Mechanical Rate FiO2 Tidal Volume PEEP Crit Value Called To Crit Value Called By Crit Value Read Back Blood Gas Notified Time Sodium Potassium Chloride Carbon Dioxide Anion Gap BUN Creatinine Est GFR ( Amer) Est GFR (Non-Af Amer) POC Glucose (mg/dL) Random Glucose Hemoglobin A1c Serum Osmolality Lactic Acid Calcium Phosphorus Magnesium Iron TIBC % Saturation Total Bilirubin AST ALT Alkaline Phosphatase CK-MB (Mass) Troponin I NT-Pro-B Natriuret Pep Total Protein Albumin Globulin Albumin/Globulin Ratio Lipase TSH 3rd Generation Arterial Blood Potassium Venous Blood Potassium Urine Color Yellow Urine Clarity Cloudy Urine pH 7.5 Ur Specific Levasy 1.020 Urine Protein > 300 Urine Glucose (UA) 100 Urine Ketones Trace Urine Blood Large Urine Nitrate Negative Urine Bilirubin Negative Urine Urobilinogen 0.2 Ur Leukocyte Esterase Moderate Urine WBC (Auto) 100 H Urine RBC (Auto) 250 H Ur Squamous Epith Cells 2 Urine Bacteria Rare Urine Osmolality Ur Random Creatinine Ur Random Sodium Ur Random Uric Acid Gastric Occult Blood Urine Opiates Screen Urine Methadone Screen Ur Barbiturates Screen Ur Phencyclidine Scrn Ur Amphetamines Screen U Benzodiazepines Scrn U Oth Cocaine Metabols U Cannabinoids Screen Serum Ketones Blood Type Antibody Screen 03/21/17 03/21/17 03/21/17 19:13 19:13 19:18 WBC RBC Hgb Hct MCV MCH MCHC RDW Plt Count MPV Neut % (Auto) Lymph % (Auto) Kendall % (Auto) Eos % (Auto) Baso % (Auto) Neut # Lymph # Kendall # Eos # Baso # Neutrophils % (Manual) Band Neutrophils % Lymphocytes % (Manual) Monocytes % (Manual) Platelet Estimate Large Platelets Polychromasia Hypochromasia (manual) Poikilocytosis (manual Anisocytosis (manual) Macrocytosis (manual) Tear Drop Cells Ovalocytes Rouleaux PT INR APTT Puncture Site pCO2 pO2 HCO3 ABG pH ABG Total CO2 ABG O2 Saturation ABG Base Excess Heriberto Test ABG Potassium VBG pH VBG pCO2 VBG HCO3 VBG Total CO2 VBG O2 Sat (Calc) VBG Base Excess VBG Potassium A-a O2 Difference Respiratory Index Glucose Lactate Vent Mode Mechanical Rate FiO2 Tidal Volume PEEP Crit Value Called To Crit Value Called By Crit Value Read Back Blood Gas Notified Time Sodium 172 H* D Potassium 4.7 Chloride 135 H Carbon Dioxide 30 Anion Gap 11 BUN 128 H* D Creatinine 2.4 H Est GFR ( Amer) 31 Est GFR (Non-Af Amer) 26 POC Glucose (mg/dL) Random Glucose 376 H Hemoglobin A1c 7.6 H Serum Osmolality Lactic Acid Calcium 8.2 L Phosphorus Magnesium Iron TIBC % Saturation Total Bilirubin 0.6 AST 66 H ALT 45 Alkaline Phosphatase 279 H D CK-MB (Mass) 0.91 Troponin I 0.0420 NT-Pro-B Natriuret Pep Total Protein 8.7 H Albumin 3.1 L Globulin 5.6 H Albumin/Globulin Ratio 0.6 L Lipase 326 H TSH 3rd Generation Arterial Blood Potassium Venous Blood Potassium Urine Color Urine Clarity Urine pH Ur Specific Levasy Urine Protein Urine Glucose (UA) Urine Ketones Urine Blood Urine Nitrate Urine Bilirubin Urine Urobilinogen Ur Leukocyte Esterase Urine WBC (Auto) Urine RBC (Auto) Ur Squamous Epith Cells Urine Bacteria Urine Osmolality Ur Random Creatinine Ur Random Sodium Ur Random Uric Acid Gastric Occult Blood Urine Opiates Screen Urine Methadone Screen Ur Barbiturates Screen Ur Phencyclidine Scrn Ur Amphetamines Screen U Benzodiazepines Scrn U Oth Cocaine Metabols U Cannabinoids Screen Serum Ketones Blood Type A POSITIVE Antibody Screen Negative 03/21/17 03/21/17 03/21/17 19:36 20:24 20:42 WBC RBC Hgb Hct MCV MCH MCHC RDW Plt Count MPV Neut % (Auto) Lymph % (Auto) Kendall % (Auto) Eos % (Auto) Baso % (Auto) Neut # Lymph # Kendall # Eos # Baso # Neutrophils % (Manual) Band Neutrophils % Lymphocytes % (Manual) Monocytes % (Manual) Platelet Estimate Large Platelets Polychromasia Hypochromasia (manual) Poikilocytosis (manual Anisocytosis (manual) Macrocytosis (manual) Tear Drop Cells Ovalocytes Rouleaux PT INR APTT Puncture Site Lba pCO2 28 L pO2 27 L 366 H HCO3 21.6 ABG pH 7.43 ABG Total CO2 19.5 L ABG O2 Saturation 100.6 H ABG Base Excess -4.4 L Heriberto Test Yes ABG Potassium 3.3 L VBG pH 7.28 L VBG pCO2 57 VBG HCO3 22.6 VBG Total CO2 28.5 H VBG O2 Sat (Calc) 52.7 VBG Base Excess -1.0 L VBG Potassium 4.5 A-a O2 Difference 312.0 Respiratory Index 0.9 Glucose 345 H 256 H Lactate 3.2 H 4.8 H* Vent Mode Prvc Mechanical Rate 14 FiO2 100.0 Tidal Volume 450 PEEP 5 Crit Value Called To Dr. nora melendez Crit Value Called By Dany pardo electro mechanical designer Crit Value Read Back Y Y Blood Gas Notified Time 1938 2044 Sodium 176.0 H* 173.0 H* Potassium Chloride 141.0 H 147.0 H Carbon Dioxide Anion Gap BUN Creatinine Est GFR ( Amer) Est GFR (Non-Af Amer) POC Glucose (mg/dL) Random Glucose Hemoglobin A1c Serum Osmolality Lactic Acid Calcium Phosphorus Magnesium Iron TIBC % Saturation Total Bilirubin AST ALT Alkaline Phosphatase CK-MB (Mass) Troponin I NT-Pro-B Natriuret Pep 902 H Total Protein Albumin Globulin Albumin/Globulin Ratio Lipase TSH 3rd Generation 3.03 Arterial Blood Potassium 3.3 L Venous Blood Potassium 4.5 Urine Color Urine Clarity Urine pH Ur Specific Levasy Urine Protein Urine Glucose (UA) Urine Ketones Urine Blood Urine Nitrate Urine Bilirubin Urine Urobilinogen Ur Leukocyte Esterase Urine WBC (Auto) Urine RBC (Auto) Ur Squamous Epith Cells Urine Bacteria Urine Osmolality Ur Random Creatinine Ur Random Sodium Ur Random Uric Acid Gastric Occult Blood Urine Opiates Screen Urine Methadone Screen Ur Barbiturates Screen Ur Phencyclidine Scrn Ur Amphetamines Screen U Benzodiazepines Scrn U Oth Cocaine Metabols U Cannabinoids Screen Serum Ketones Negative Blood Type Antibody Screen 03/21/17 03/21/17 03/21/17 20:51 21:13 22:32 WBC RBC Hgb Hct MCV MCH MCHC RDW Plt Count MPV Neut % (Auto) Lymph % (Auto) Kendall % (Auto) Eos % (Auto) Baso % (Auto) Neut # Lymph # Kendall # Eos # Baso # Neutrophils % (Manual) Band Neutrophils % Lymphocytes % (Manual) Monocytes % (Manual) Platelet Estimate Large Platelets Polychromasia Hypochromasia (manual) Poikilocytosis (manual Anisocytosis (manual) Macrocytosis (manual) Tear Drop Cells Ovalocytes Rouleaux PT INR APTT Puncture Site pCO2 pO2 HCO3 ABG pH ABG Total CO2 ABG O2 Saturation ABG Base Excess Heriberto Test ABG Potassium VBG pH VBG pCO2 VBG HCO3 VBG Total CO2 VBG O2 Sat (Calc) VBG Base Excess VBG Potassium A-a O2 Difference Respiratory Index Glucose Lactate Vent Mode Mechanical Rate FiO2 Tidal Volume PEEP Crit Value Called To Crit Value Called By Crit Value Read Back Blood Gas Notified Time Sodium Potassium Chloride Carbon Dioxide Anion Gap BUN Creatinine Est GFR ( Amer) Est GFR (Non-Af Amer) POC Glucose (mg/dL) 305 H 208 H Random Glucose Hemoglobin A1c Serum Osmolality 414 H Lactic Acid Calcium Phosphorus Magnesium Iron TIBC % Saturation Total Bilirubin AST ALT Alkaline Phosphatase CK-MB (Mass) Troponin I NT-Pro-B Natriuret Pep Total Protein Albumin Globulin Albumin/Globulin Ratio Lipase TSH 3rd Generation Arterial Blood Potassium Venous Blood Potassium Urine Color Urine Clarity Urine pH Ur Specific Levasy Urine Protein Urine Glucose (UA) Urine Ketones Urine Blood Urine Nitrate Urine Bilirubin Urine Urobilinogen Ur Leukocyte Esterase Urine WBC (Auto) Urine RBC (Auto) Ur Squamous Epith Cells Urine Bacteria Urine Osmolality Ur Random Creatinine Ur Random Sodium Ur Random Uric Acid Gastric Occult Blood Urine Opiates Screen Urine Methadone Screen Ur Barbiturates Screen Ur Phencyclidine Scrn Ur Amphetamines Screen U Benzodiazepines Scrn U Oth Cocaine Metabols U Cannabinoids Screen Serum Ketones Blood Type Antibody Screen 03/21/17 03/22/17 03/22/17 23:13 00:06 01:11 WBC RBC Hgb Hct MCV MCH MCHC RDW Plt Count MPV Neut % (Auto) Lymph % (Auto) Kendall % (Auto) Eos % (Auto) Baso % (Auto) Neut # Lymph # Kendall # Eos # Baso # Neutrophils % (Manual) Band Neutrophils % Lymphocytes % (Manual) Monocytes % (Manual) Platelet Estimate Large Platelets Polychromasia Hypochromasia (manual) Poikilocytosis (manual Anisocytosis (manual) Macrocytosis (manual) Tear Drop Cells Ovalocytes Rouleaux PT INR APTT Puncture Site pCO2 pO2 HCO3 ABG pH ABG Total CO2 ABG O2 Saturation ABG Base Excess Heriberto Test ABG Potassium VBG pH VBG pCO2 VBG HCO3 VBG Total CO2 VBG O2 Sat (Calc) VBG Base Excess VBG Potassium A-a O2 Difference Respiratory Index Glucose Lactate Vent Mode Mechanical Rate FiO2 Tidal Volume PEEP Crit Value Called To Crit Value Called By Crit Value Read Back Blood Gas Notified Time Sodium Potassium Chloride Carbon Dioxide Anion Gap BUN Creatinine Est GFR ( Amer) Est GFR (Non-Af Amer) POC Glucose (mg/dL) 152 H 119 H 109 Random Glucose Hemoglobin A1c Serum Osmolality Lactic Acid Calcium Phosphorus Magnesium Iron TIBC % Saturation Total Bilirubin AST ALT Alkaline Phosphatase CK-MB (Mass) Troponin I NT-Pro-B Natriuret Pep Total Protein Albumin Globulin Albumin/Globulin Ratio Lipase TSH 3rd Generation Arterial Blood Potassium Venous Blood Potassium Urine Color Urine Clarity Urine pH Ur Specific Levasy Urine Protein Urine Glucose (UA) Urine Ketones Urine Blood Urine Nitrate Urine Bilirubin Urine Urobilinogen Ur Leukocyte Esterase Urine WBC (Auto) Urine RBC (Auto) Ur Squamous Epith Cells Urine Bacteria Urine Osmolality Ur Random Creatinine Ur Random Sodium Ur Random Uric Acid Gastric Occult Blood Urine Opiates Screen Urine Methadone Screen Ur Barbiturates Screen Ur Phencyclidine Scrn Ur Amphetamines Screen U Benzodiazepines Scrn U Oth Cocaine Metabols U Cannabinoids Screen Serum Ketones Blood Type Antibody Screen 03/22/17 03/22/17 03/22/17 04:40 05:44 06:38 WBC 11.2 H RBC 2.85 L Hgb 9.0 L Hct 29.4 L MCV 103.3 H MCH 31.5 H MCHC 30.5 L RDW 17.6 H Plt Count 85 L D MPV 14.6 H Neut % (Auto) 85.1 H Lymph % (Auto) 10.3 L Kendall % (Auto) 4.2 Eos % (Auto) 0.1 Baso % (Auto) 0.3 Neut # 9.5 H Lymph # 1.2 Kendall # 0.5 Eos # 0.0 Baso # 0.0 Neutrophils % (Manual) 74 Band Neutrophils % 18 H* Lymphocytes % (Manual) 6 L Monocytes % (Manual) 2 Platelet Estimate Decreased L Large Platelets Polychromasia Hypochromasia (manual) Slight Poikilocytosis (manual Slight Anisocytosis (manual) Slight Macrocytosis (manual) Moderate Tear Drop Cells Slight Ovalocytes Slight Rouleaux PT INR APTT Puncture Site Lb pCO2 25 L pO2 226 H HCO3 23.0 ABG pH 7.49 H ABG Total CO2 19.9 L ABG O2 Saturation 99.6 H ABG Base Excess -2.6 L Heriberto Test Na ABG Potassium 3.9 VBG pH VBG pCO2 VBG HCO3 VBG Total CO2 VBG O2 Sat (Calc) VBG Base Excess VBG Potassium A-a O2 Difference 456.0 Respiratory Index 2.0 Glucose 127 H Lactate 3.3 H Vent Mode Prvc Mechanical Rate 14 FiO2 100.0 Tidal Volume 450 PEEP 5 Crit Value Called To Carly jorge/rn Crit Value Called By Kris webb/rt Crit Value Read Back Y Blood Gas Notified Time 450 Sodium 171.0 H* Potassium Chloride 144.0 H Carbon Dioxide Anion Gap BUN Creatinine Est GFR ( Amer) Est GFR (Non-Af Amer) POC Glucose (mg/dL) 140 H Random Glucose Hemoglobin A1c Serum Osmolality Lactic Acid Calcium Phosphorus Magnesium Iron TIBC % Saturation Total Bilirubin AST ALT Alkaline Phosphatase CK-MB (Mass) Troponin I NT-Pro-B Natriuret Pep Total Protein Albumin Globulin Albumin/Globulin Ratio Lipase TSH 3rd Generation Arterial Blood Potassium 3.9 Venous Blood Potassium Urine Color Urine Clarity Urine pH Ur Specific Levasy Urine Protein Urine Glucose (UA) Urine Ketones Urine Blood Urine Nitrate Urine Bilirubin Urine Urobilinogen Ur Leukocyte Esterase Urine WBC (Auto) Urine RBC (Auto) Ur Squamous Epith Cells Urine Bacteria Urine Osmolality Ur Random Creatinine Ur Random Sodium Ur Random Uric Acid Gastric Occult Blood Urine Opiates Screen Urine Methadone Screen Ur Barbiturates Screen Ur Phencyclidine Scrn Ur Amphetamines Screen U Benzodiazepines Scrn U Oth Cocaine Metabols U Cannabinoids Screen Serum Ketones Blood Type Antibody Screen 03/22/17 03/22/17 03/22/17 06:39 06:39 06:39 WBC RBC Hgb Hct MCV MCH MCHC RDW Plt Count MPV Neut % (Auto) Lymph % (Auto) Kendall % (Auto) Eos % (Auto) Baso % (Auto) Neut # Lymph # Kendall # Eos # Baso # Neutrophils % (Manual) Band Neutrophils % Lymphocytes % (Manual) Monocytes % (Manual) Platelet Estimate Large Platelets Polychromasia Hypochromasia (manual) Poikilocytosis (manual Anisocytosis (manual) Macrocytosis (manual) Tear Drop Cells Ovalocytes Rouleaux PT INR APTT Puncture Site pCO2 pO2 HCO3 ABG pH ABG Total CO2 ABG O2 Saturation ABG Base Excess Heriberto Test ABG Potassium VBG pH VBG pCO2 VBG HCO3 VBG Total CO2 VBG O2 Sat (Calc) VBG Base Excess VBG Potassium A-a O2 Difference Respiratory Index Glucose Lactate Vent Mode Mechanical Rate FiO2 Tidal Volume PEEP Crit Value Called To Crit Value Called By Crit Value Read Back Blood Gas Notified Time Sodium 168 H* Potassium 4.3 Chloride 140 H Carbon Dioxide 19 L Anion Gap 13 BUN 113 H* Creatinine 2.2 H Est GFR ( Amer) 35 Est GFR (Non-Af Amer) 29 POC Glucose (mg/dL) Random Glucose 116 H Hemoglobin A1c Serum Osmolality Lactic Acid 4.6 H* Calcium 7.3 L Phosphorus 2.5 Magnesium 2.8 H Iron 14 L TIBC 194 L % Saturation 7 L Total Bilirubin 0.9 AST 56 ALT 43 Alkaline Phosphatase 224 H CK-MB (Mass) Troponin I NT-Pro-B Natriuret Pep Total Protein 7.9 Albumin 2.8 L Globulin 5.1 H Albumin/Globulin Ratio 0.5 L Lipase TSH 3rd Generation Arterial Blood Potassium Venous Blood Potassium Urine Color Urine Clarity Urine pH Ur Specific Levasy Urine Protein Urine Glucose (UA) Urine Ketones Urine Blood Urine Nitrate Urine Bilirubin Urine Urobilinogen Ur Leukocyte Esterase Urine WBC (Auto) Urine RBC (Auto) Ur Squamous Epith Cells Urine Bacteria Urine Osmolality Ur Random Creatinine Ur Random Sodium Ur Random Uric Acid Gastric Occult Blood Urine Opiates Screen Urine Methadone Screen Ur Barbiturates Screen Ur Phencyclidine Scrn Ur Amphetamines Screen U Benzodiazepines Scrn U Oth Cocaine Metabols U Cannabinoids Screen Serum Ketones Blood Type Antibody Screen 03/22/17 03/22/17 03/22/17 08:01 09:15 11:28 WBC RBC Hgb Hct MCV MCH MCHC RDW Plt Count MPV Neut % (Auto) Lymph % (Auto) Kendall % (Auto) Eos % (Auto) Baso % (Auto) Neut # Lymph # Kendall # Eos # Baso # Neutrophils % (Manual) Band Neutrophils % Lymphocytes % (Manual) Monocytes % (Manual) Platelet Estimate Large Platelets Polychromasia Hypochromasia (manual) Poikilocytosis (manual Anisocytosis (manual) Macrocytosis (manual) Tear Drop Cells Ovalocytes Rouleaux PT INR APTT Puncture Site pCO2 pO2 HCO3 ABG pH ABG Total CO2 ABG O2 Saturation ABG Base Excess Heriberto Test ABG Potassium VBG pH VBG pCO2 VBG HCO3 VBG Total CO2 VBG O2 Sat (Calc) VBG Base Excess VBG Potassium A-a O2 Difference Respiratory Index Glucose Lactate Vent Mode Mechanical Rate FiO2 Tidal Volume PEEP Crit Value Called To Crit Value Called By Crit Value Read Back Blood Gas Notified Time Sodium Potassium Chloride Carbon Dioxide Anion Gap BUN Creatinine Est GFR ( Amer) Est GFR (Non-Af Amer) POC Glucose (mg/dL) 128 H Random Glucose Hemoglobin A1c Serum Osmolality Lactic Acid Calcium Phosphorus Magnesium Iron TIBC % Saturation Total Bilirubin AST ALT Alkaline Phosphatase CK-MB (Mass) Troponin I NT-Pro-B Natriuret Pep Total Protein Albumin Globulin Albumin/Globulin Ratio Lipase TSH 3rd Generation Arterial Blood Potassium Venous Blood Potassium Urine Color Urine Clarity Urine pH Ur Specific Levasy Urine Protein Urine Glucose (UA) Urine Ketones Urine Blood Urine Nitrate Urine Bilirubin Urine Urobilinogen Ur Leukocyte Esterase Urine WBC (Auto) Urine RBC (Auto) Ur Squamous Epith Cells Urine Bacteria Urine Osmolality 563 Ur Random Creatinine 75.7 Ur Random Sodium 24 Ur Random Uric Acid 15.0 Gastric Occult Blood Positive H Urine Opiates Screen Negative Urine Methadone Screen Negative Ur Barbiturates Screen Negative Ur Phencyclidine Scrn Negative Ur Amphetamines Screen Negative U Benzodiazepines Scrn Negative U Oth Cocaine Metabols Negative U Cannabinoids Screen Negative Serum Ketones Blood Type Antibody Screen EKG/Cardiology Studies: Cardiology / EKG Studies 03/21/17 19:01 EKG [ELECTROCARDIOGRAM] Stat Comment: Mode Of Transportation: BED Reason For Exam: cp 03/21/17 19:06 ELECTROCARDIOGRAM Stat Comment: Mode Of Transportation: BED Reason For Exam: sob 03/21/17 20:32 EKG [ELECTROCARDIOGRAM] Stat Comment: Mode Of Transportation: PORTABLE Reason For Exam: eval Fingerstick Blood Sugar Results: 128 Review of Systems - Review of Systems Systems not reviewed;Unavailable: Intubated Assessment/Plan (1) Septic shock Assessment and plan: 87yo M. PMHx Parkinson's, Alzheimers's, PEG, hypertension, diabetes, anemia, chronic diastolic CHF, thrombocytopenia, Hematuria. Intubated in field for respiratory failure. Neuro: sedated with propofol gtt, holding sedation for now. Pulm: acute respiratory failure, on vent. CXR possible aspiration pneumonia, duonebs, abx. CV: septic shock on levophed. Hem: anemia of chronic disease, leucocytosis from sepsis Renal: acute renal failure, urine output wnl, will monitor. Endo: DM type 2, SISS for coverage GI: NPO, will start on tube feeds Glucerna. ID: septic shock, multiple possible sources, decubitus ulcer, aspiration pneumonia, continue Vanco and Zosyn. DVT proph - heparin sq GI proph - protonix siu for strict I/O's during acute illness Code status - full code Critical Care Time spent 35 minutes Multi-disciplinary rounds were performed with house staff, nursing, speech therapy, respiratory therapy, pharmacy and nutrition with integrated input from the primary team/attending and other consulting services. The documented time is cumulative and includes review of patient data/exams/labs/chart review and examination of the patient on rounds and throughout the day; time is exclusive of any procedures or teaching time. Current Visit: Yes Status: Acute
--- NOTE | 2017-03-22 17:42 | RAD ---
HISTORY: insertion of TLC COMPARISON: Comparison is made to the previous study done on the same day FINDINGS: LUNGS: Interval improvement in the lungs compared to the previous exam. The ET tube is seen at appropriate position PLEURA: No significant pleural effusion identified, no pneumothorax apparent. CARDIOVASCULAR: Normal. OSSEOUS STRUCTURES: No significant abnormalities. VISUALIZED UPPER ABDOMEN: The NG tube seen extending to the abdomen. OTHER FINDINGS: Right subclavian catheter is seen in place. IMPRESSION: Interval improvement in the lungs since the previous study. Appropriate position of the ETT and NG tube.
--- NOTE | 2017-03-22 17:46 | CP.PCM.HP ---
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 area as per niece - MUSCULOSKELETAL/RHEUMATOLOGICAL Hx Falls: Yes - GASTROINTESTINAL Hx Gastrointestinal Disorders: No - GENITOURINARY/GYNECOLOGICAL Hx Genitourinary Disorders: No - PSYCHIATRIC Hx Psychophysiologic Disorder: No Hx Substance Use: No - SURGICAL HISTORY Hx Surgeries: Yes (right ankle surgery, bilateral eye surgeries) - ANESTHESIA Hx Anesthesia: Yes Hx Anesthesia Reactions: No Meds Allergies/Adverse Reactions: Allergies Allergy/AdvReac Type Severity Reaction Status Date / Time No Known Allergies Allergy Verified 12/16/16 11:22 Physical Exam - Constitutional Appears: Well - Head Exam Head Exam: ATRAUMATIC, NORMAL INSPECTION, NORMOCEPHALIC - Eye Exam Eye Exam: EOMI, Normal appearance, PERRL Pupil Exam: NORMAL ACCOMODATION, PERRL - ENT Exam ENT Exam: Mucous Membranes Moist, Normal Exam - Neck Exam Neck exam: Positive for: Normal Inspection - Respiratory Exam Respiratory Exam: Decreased Breath Sounds - Cardiovascular Exam Cardiovascular Exam: REGULAR RHYTHM, +S1, +S2 - GI/Abdominal Exam GI & Abdominal Exam: Diminished Bowel Sounds, Soft - Rectal Exam Rectal Exam: Deferred Results - Vital Signs Recent Vital Signs: Last Vital Signs Temp 98.5 F 03/22/17 16:00 Pulse 90 03/22/17 17:00 Resp 21 03/22/17 17:00 BP 100/39 L 03/22/17 17:00 Pulse Ox 100 03/22/17 17:00 - Labs Result Diagrams: 03/22/17 06:38 03/22/17 06:39 Labs: Laboratory Results - last 24 hr 03/21/17 03/21/17 03/21/17 19:08 19:13 19:13 WBC 11.1 H RBC 2.87 L Hgb 8.9 L D Hct 29.4 L MCV 102.4 H D MCH 31.1 H MCHC 30.3 L RDW 17.7 H Plt Count 121 L D MPV 14.2 H Neut % (Auto) 85.1 H Lymph % (Auto) 8.7 L Cole % (Auto) 5.8 Eos % (Auto) 0.3 Baso % (Auto) 0.1 Neut # 9.5 H Lymph # 1.0 Cole # 0.6 Eos # 0.0 Baso # 0.0 Neutrophils % (Manual) 77 H Band Neutrophils % 6 H Lymphocytes % (Manual) 10 L Monocytes % (Manual) 7 Platelet Estimate Slightly decreased L Large Platelets Present Polychromasia Slight Hypochromasia (manual) Poikilocytosis (manual Anisocytosis (manual) Slight Macrocytosis (manual) Tear Drop Cells Ovalocytes Rouleaux Slight PT 14.1 H INR 1.3 APTT 33 Puncture Site pCO2 pO2 HCO3 ABG pH ABG Total CO2 ABG O2 Saturation ABG Base Excess Heriberto Test ABG Potassium VBG pH VBG pCO2 VBG HCO3 VBG Total CO2 VBG O2 Sat (Calc) VBG Base Excess VBG Potassium A-a O2 Difference Respiratory Index Glucose Lactate Vent Mode Mechanical Rate FiO2 Tidal Volume PEEP Crit Value Called To Crit Value Called By Crit Value Read Back Blood Gas Notified Time Sodium Potassium Chloride Carbon Dioxide Anion Gap BUN Creatinine Est GFR ( Amer) Est GFR (Non-Af Amer) POC Glucose (mg/dL) Random Glucose Hemoglobin A1c Serum Osmolality Lactic Acid Calcium Phosphorus Magnesium Iron TIBC % Saturation Total Bilirubin AST ALT Alkaline Phosphatase CK-MB (Mass) Troponin I NT-Pro-B Natriuret Pep Total Protein Albumin Globulin Albumin/Globulin Ratio Lipase TSH 3rd Generation Arterial Blood Potassium Venous Blood Potassium Urine Color Yellow Urine Clarity Cloudy Urine pH 7.5 Ur Specific [place] 1.020 Urine Protein > 300 Urine Glucose (UA) 100 Urine Ketones Trace Urine Blood Large Urine Nitrate Negative Urine Bilirubin Negative Urine Urobilinogen 0.2 Ur Leukocyte Esterase Moderate Urine WBC (Auto) 100 H Urine RBC (Auto) 250 H Ur Squamous Epith Cells 2 Urine Bacteria Rare Urine Osmolality Ur Random Creatinine Ur Random Sodium Ur Random Uric Acid Gastric Occult Blood Urine Opiates Screen Urine Methadone Screen Ur Barbiturates Screen Ur Phencyclidine Scrn Ur Amphetamines Screen U Benzodiazepines Scrn U Oth Cocaine Metabols U Cannabinoids Screen Serum Ketones Blood Type Antibody Screen 01/05/18 01/05/18 01/05/18 19:13 19:13 19:18 WBC RBC Hgb Hct MCV MCH MCHC RDW Plt Count MPV Neut % (Auto) Lymph % (Auto) Cole % (Auto) Eos % (Auto) Baso % (Auto) Neut # Lymph # Cole # Eos # Baso # Neutrophils % (Manual) Band Neutrophils % Lymphocytes % (Manual) Monocytes % (Manual) Platelet Estimate Large Platelets Polychromasia Hypochromasia (manual) Poikilocytosis (manual Anisocytosis (manual) Macrocytosis (manual) Tear Drop Cells Ovalocytes Rouleaux PT INR APTT Puncture Site pCO2 pO2 HCO3 ABG pH ABG Total CO2 ABG O2 Saturation ABG Base Excess Heriberto Test ABG Potassium VBG pH VBG pCO2 VBG HCO3 VBG Total CO2 VBG O2 Sat (Calc) VBG Base Excess VBG Potassium A-a O2 Difference Respiratory Index Glucose Lactate Vent Mode Mechanical Rate FiO2 Tidal Volume PEEP Crit Value Called To Crit Value Called By Crit Value Read Back Blood Gas Notified Time Sodium 172 H* D Potassium 4.7 Chloride 135 H Carbon Dioxide 30 Anion Gap 11 BUN 128 H* D Creatinine 2.4 H Est GFR ( Amer) 31 Est GFR (Non-Af Amer) 26 POC Glucose (mg/dL) Random Glucose 376 H Hemoglobin A1c 7.6 H Serum Osmolality Lactic Acid Calcium 8.2 L Phosphorus Magnesium Iron TIBC % Saturation Total Bilirubin 0.6 AST 66 H ALT 45 Alkaline Phosphatase 279 H D CK-MB (Mass) 0.91 Troponin I 0.0420 NT-Pro-B Natriuret Pep Total Protein 8.7 H Albumin 3.1 L Globulin 5.6 H Albumin/Globulin Ratio 0.6 L Lipase 326 H TSH 3rd Generation Arterial Blood Potassium Venous Blood Potassium Urine Color Urine Clarity Urine pH Ur Specific [place] Urine Protein Urine Glucose (UA) Urine Ketones Urine Blood Urine Nitrate Urine Bilirubin Urine Urobilinogen Ur Leukocyte Esterase Urine WBC (Auto) Urine RBC (Auto) Ur Squamous Epith Cells Urine Bacteria Urine Osmolality Ur Random Creatinine Ur Random Sodium Ur Random Uric Acid Gastric Occult Blood Urine Opiates Screen Urine Methadone Screen Ur Barbiturates Screen Ur Phencyclidine Scrn Ur Amphetamines Screen U Benzodiazepines Scrn U Oth Cocaine Metabols U Cannabinoids Screen Serum Ketones Blood Type A POSITIVE Antibody Screen Negative 03/21/17 03/21/17 03/21/17 19:36 20:24 20:42 WBC RBC Hgb Hct MCV MCH MCHC RDW Plt Count MPV Neut % (Auto) Lymph % (Auto) Cole % (Auto) Eos % (Auto) Baso % (Auto) Neut # Lymph # Cole # Eos # Baso # Neutrophils % (Manual) Band Neutrophils % Lymphocytes % (Manual) Monocytes % (Manual) Platelet Estimate Large Platelets Polychromasia Hypochromasia (manual) Poikilocytosis (manual Anisocytosis (manual) Macrocytosis (manual) Tear Drop Cells Ovalocytes Rouleaux PT INR APTT Puncture Site Lba pCO2 28 L pO2 27 L 366 H HCO3 21.6 ABG pH 7.43 ABG Total CO2 19.5 L ABG O2 Saturation 100.6 H ABG Base Excess -4.4 L Heriberto Test Yes ABG Potassium 3.3 L VBG pH 7.28 L VBG pCO2 57 VBG HCO3 22.6 VBG Total CO2 28.5 H VBG O2 Sat (Calc) 52.7 VBG Base Excess -1.0 L VBG Potassium 4.5 A-a O2 Difference 312.0 Respiratory Index 0.9 Glucose 345 H 256 H Lactate 3.2 H 4.8 H* Vent Mode Prvc Mechanical Rate 14 FiO2 100.0 Tidal Volume 450 PEEP 5 Crit Value Called To Dr. nora melendez Crit Value Called By Dany pardo crosscutter rolled glass Crit Value Read Back Y Y Blood Gas Notified Time 1938 2044 Sodium 176.0 H* 173.0 H* Potassium Chloride 141.0 H 147.0 H Carbon Dioxide Anion Gap BUN Creatinine Est GFR ( Amer) Est GFR (Non-Af Amer) POC Glucose (mg/dL) Random Glucose Hemoglobin A1c Serum Osmolality Lactic Acid Calcium Phosphorus Magnesium Iron TIBC % Saturation Total Bilirubin AST ALT Alkaline Phosphatase CK-MB (Mass) Troponin I NT-Pro-B Natriuret Pep 902 H Total Protein Albumin Globulin Albumin/Globulin Ratio Lipase TSH 3rd Generation 3.03 Arterial Blood Potassium 3.3 L Venous Blood Potassium 4.5 Urine Color Urine Clarity Urine pH Ur Specific [place] Urine Protein Urine Glucose (UA) Urine Ketones Urine Blood Urine Nitrate Urine Bilirubin Urine Urobilinogen Ur Leukocyte Esterase Urine WBC (Auto) Urine RBC (Auto) Ur Squamous Epith Cells Urine Bacteria Urine Osmolality Ur Random Creatinine Ur Random Sodium Ur Random Uric Acid Gastric Occult Blood Urine Opiates Screen Urine Methadone Screen Ur Barbiturates Screen Ur Phencyclidine Scrn Ur Amphetamines Screen U Benzodiazepines Scrn U Oth Cocaine Metabols U Cannabinoids Screen Serum Ketones Negative Blood Type Antibody Screen 03/21/17 03/21/17 03/21/17 20:51 21:13 22:32 WBC RBC Hgb Hct MCV MCH MCHC RDW Plt Count MPV Neut % (Auto) Lymph % (Auto) Cole % (Auto) Eos % (Auto) Baso % (Auto) Neut # Lymph # Cole # Eos # Baso # Neutrophils % (Manual) Band Neutrophils % Lymphocytes % (Manual) Monocytes % (Manual) Platelet Estimate Large Platelets Polychromasia Hypochromasia (manual) Poikilocytosis (manual Anisocytosis (manual) Macrocytosis (manual) Tear Drop Cells Ovalocytes Rouleaux PT INR APTT Puncture Site pCO2 pO2 HCO3 ABG pH ABG Total CO2 ABG O2 Saturation ABG Base Excess Heriberto Test ABG Potassium VBG pH VBG pCO2 VBG HCO3 VBG Total CO2 VBG O2 Sat (Calc) VBG Base Excess VBG Potassium A-a O2 Difference Respiratory Index Glucose Lactate Vent Mode Mechanical Rate FiO2 Tidal Volume PEEP Crit Value Called To Crit Value Called By Crit Value Read Back Blood Gas Notified Time Sodium Potassium Chloride Carbon Dioxide Anion Gap BUN Creatinine Est GFR ( Amer) Est GFR (Non-Af Amer) POC Glucose (mg/dL) 305 H 208 H Random Glucose Hemoglobin A1c Serum Osmolality 414 H Lactic Acid Calcium Phosphorus Magnesium Iron TIBC % Saturation Total Bilirubin AST ALT Alkaline Phosphatase CK-MB (Mass) Troponin I NT-Pro-B Natriuret Pep Total Protein Albumin Globulin Albumin/Globulin Ratio Lipase TSH 3rd Generation Arterial Blood Potassium Venous Blood Potassium Urine Color Urine Clarity Urine pH Ur Specific [place] Urine Protein Urine Glucose (UA) Urine Ketones Urine Blood Urine Nitrate Urine Bilirubin Urine Urobilinogen Ur Leukocyte Esterase Urine WBC (Auto) Urine RBC (Auto) Ur Squamous Epith Cells Urine Bacteria Urine Osmolality Ur Random Creatinine Ur Random Sodium Ur Random Uric Acid Gastric Occult Blood Urine Opiates Screen Urine Methadone Screen Ur Barbiturates Screen Ur Phencyclidine Scrn Ur Amphetamines Screen U Benzodiazepines Scrn U Oth Cocaine Metabols U Cannabinoids Screen Serum Ketones Blood Type Antibody Screen 03/21/17 03/22/17 03/22/17 23:13 00:06 01:11 WBC RBC Hgb Hct MCV MCH MCHC RDW Plt Count MPV Neut % (Auto) Lymph % (Auto) Cole % (Auto) Eos % (Auto) Baso % (Auto) Neut # Lymph # Cole # Eos # Baso # Neutrophils % (Manual) Band Neutrophils % Lymphocytes % (Manual) Monocytes % (Manual) Platelet Estimate Large Platelets Polychromasia Hypochromasia (manual) Poikilocytosis (manual Anisocytosis (manual) Macrocytosis (manual) Tear Drop Cells Ovalocytes Rouleaux PT INR APTT Puncture Site pCO2 pO2 HCO3 ABG pH ABG Total CO2 ABG O2 Saturation ABG Base Excess Heriberto Test ABG Potassium VBG pH VBG pCO2 VBG HCO3 VBG Total CO2 VBG O2 Sat (Calc) VBG Base Excess VBG Potassium A-a O2 Difference Respiratory Index Glucose Lactate Vent Mode Mechanical Rate FiO2 Tidal Volume PEEP Crit Value Called To Crit Value Called By Crit Value Read Back Blood Gas Notified Time Sodium Potassium Chloride Carbon Dioxide Anion Gap BUN Creatinine Est GFR ( Amer) Est GFR (Non-Af Amer) POC Glucose (mg/dL) 152 H 119 H 109 Random Glucose Hemoglobin A1c Serum Osmolality Lactic Acid Calcium Phosphorus Magnesium Iron TIBC % Saturation Total Bilirubin AST ALT Alkaline Phosphatase CK-MB (Mass) Troponin I NT-Pro-B Natriuret Pep Total Protein Albumin Globulin Albumin/Globulin Ratio Lipase TSH 3rd Generation Arterial Blood Potassium Venous Blood Potassium Urine Color Urine Clarity Urine pH Ur Specific [place] Urine Protein Urine Glucose (UA) Urine Ketones Urine Blood Urine Nitrate Urine Bilirubin Urine Urobilinogen Ur Leukocyte Esterase Urine WBC (Auto) Urine RBC (Auto) Ur Squamous Epith Cells Urine Bacteria Urine Osmolality Ur Random Creatinine Ur Random Sodium Ur Random Uric Acid Gastric Occult Blood Urine Opiates Screen Urine Methadone Screen Ur Barbiturates Screen Ur Phencyclidine Scrn Ur Amphetamines Screen U Benzodiazepines Scrn U Oth Cocaine Metabols U Cannabinoids Screen Serum Ketones Blood Type Antibody Screen 03/22/17 03/22/17 03/22/17 04:40 05:44 06:38 WBC 11.2 H RBC 2.85 L Hgb 9.0 L Hct 29.4 L MCV 103.3 H MCH 31.5 H MCHC 30.5 L RDW 17.6 H Plt Count 85 L D MPV 14.6 H Neut % (Auto) 85.1 H Lymph % (Auto) 10.3 L Cole % (Auto) 4.2 Eos % (Auto) 0.1 Baso % (Auto) 0.3 Neut # 9.5 H Lymph # 1.2 Cole # 0.5 Eos # 0.0 Baso # 0.0 Neutrophils % (Manual) 74 Band Neutrophils % 18 H* Lymphocytes % (Manual) 6 L Monocytes % (Manual) 2 Platelet Estimate Decreased L Large Platelets Polychromasia Hypochromasia (manual) Slight Poikilocytosis (manual Slight Anisocytosis (manual) Slight Macrocytosis (manual) Moderate Tear Drop Cells Slight Ovalocytes Slight Rouleaux PT INR APTT Puncture Site Lb pCO2 25 L pO2 226 H HCO3 23.0 ABG pH 7.49 H ABG Total CO2 19.9 L ABG O2 Saturation 99.6 H ABG Base Excess -2.6 L Heriberto Test Na ABG Potassium 3.9 VBG pH VBG pCO2 VBG HCO3 VBG Total CO2 VBG O2 Sat (Calc) VBG Base Excess VBG Potassium A-a O2 Difference 456.0 Respiratory Index 2.0 Glucose 127 H Lactate 3.3 H Vent Mode Prvc Mechanical Rate 14 FiO2 100.0 Tidal Volume 450 PEEP 5 Crit Value Called To Carly jorge/rn Crit Value Called By Kris webb/rt Crit Value Read Back Y Blood Gas Notified Time 450 Sodium 171.0 H* Potassium Chloride 144.0 H Carbon Dioxide Anion Gap BUN Creatinine Est GFR ( Amer) Est GFR (Non-Af Amer) POC Glucose (mg/dL) 140 H Random Glucose Hemoglobin A1c Serum Osmolality Lactic Acid Calcium Phosphorus Magnesium Iron TIBC % Saturation Total Bilirubin AST ALT Alkaline Phosphatase CK-MB (Mass) Troponin I NT-Pro-B Natriuret Pep Total Protein Albumin Globulin Albumin/Globulin Ratio Lipase TSH 3rd Generation Arterial Blood Potassium 3.9 Venous Blood Potassium Urine Color Urine Clarity Urine pH Ur Specific [place] Urine Protein Urine Glucose (UA) Urine Ketones Urine Blood Urine Nitrate Urine Bilirubin Urine Urobilinogen Ur Leukocyte Esterase Urine WBC (Auto) Urine RBC (Auto) Ur Squamous Epith Cells Urine Bacteria Urine Osmolality Ur Random Creatinine Ur Random Sodium Ur Random Uric Acid Gastric Occult Blood Urine Opiates Screen Urine Methadone Screen Ur Barbiturates Screen Ur Phencyclidine Scrn Ur Amphetamines Screen U Benzodiazepines Scrn U Oth Cocaine Metabols U Cannabinoids Screen Serum Ketones Blood Type Antibody Screen 03/22/17 03/22/17 03/22/17 06:39 06:39 06:39 WBC RBC Hgb Hct MCV MCH MCHC RDW Plt Count MPV Neut % (Auto) Lymph % (Auto) Cole % (Auto) Eos % (Auto) Baso % (Auto) Neut # Lymph # Cole # Eos # Baso # Neutrophils % (Manual) Band Neutrophils % Lymphocytes % (Manual) Monocytes % (Manual) Platelet Estimate Large Platelets Polychromasia Hypochromasia (manual) Poikilocytosis (manual Anisocytosis (manual) Macrocytosis (manual) Tear Drop Cells Ovalocytes Rouleaux PT INR APTT Puncture Site pCO2 pO2 HCO3 ABG pH ABG Total CO2 ABG O2 Saturation ABG Base Excess Heriberto Test ABG Potassium VBG pH VBG pCO2 VBG HCO3 VBG Total CO2 VBG O2 Sat (Calc) VBG Base Excess VBG Potassium A-a O2 Difference Respiratory Index Glucose Lactate Vent Mode Mechanical Rate FiO2 Tidal Volume PEEP Crit Value Called To Crit Value Called By Crit Value Read Back Blood Gas Notified Time Sodium 168 H* Potassium 4.3 Chloride 140 H Carbon Dioxide 19 L Anion Gap 13 BUN 113 H* Creatinine 2.2 H Est GFR ( Amer) 35 Est GFR (Non-Af Amer) 29 POC Glucose (mg/dL) Random Glucose 116 H Hemoglobin A1c Serum Osmolality Lactic Acid 4.6 H* Calcium 7.3 L Phosphorus 2.5 Magnesium 2.8 H Iron 14 L TIBC 194 L % Saturation 7 L Total Bilirubin 0.9 AST 56 ALT 43 Alkaline Phosphatase 224 H CK-MB (Mass) Troponin I NT-Pro-B Natriuret Pep Total Protein 7.9 Albumin 2.8 L Globulin 5.1 H Albumin/Globulin Ratio 0.5 L Lipase TSH 3rd Generation Arterial Blood Potassium Venous Blood Potassium Urine Color Urine Clarity Urine pH Ur Specific [place] Urine Protein Urine Glucose (UA) Urine Ketones Urine Blood Urine Nitrate Urine Bilirubin Urine Urobilinogen Ur Leukocyte Esterase Urine WBC (Auto) Urine RBC (Auto) Ur Squamous Epith Cells Urine Bacteria Urine Osmolality Ur Random Creatinine Ur Random Sodium Ur Random Uric Acid Gastric Occult Blood Urine Opiates Screen Urine Methadone Screen Ur Barbiturates Screen Ur Phencyclidine Scrn Ur Amphetamines Screen U Benzodiazepines Scrn U Oth Cocaine Metabols U Cannabinoids Screen Serum Ketones Blood Type Antibody Screen 03/22/17 03/22/17 03/22/17 08:01 09:15 11:28 WBC RBC Hgb Hct MCV MCH MCHC RDW Plt Count MPV Neut % (Auto) Lymph % (Auto) Cole % (Auto) Eos % (Auto) Baso % (Auto) Neut # Lymph # Cole # Eos # Baso # Neutrophils % (Manual) Band Neutrophils % Lymphocytes % (Manual) Monocytes % (Manual) Platelet Estimate Large Platelets Polychromasia Hypochromasia (manual) Poikilocytosis (manual Anisocytosis (manual) Macrocytosis (manual) Tear Drop Cells Ovalocytes Rouleaux PT INR APTT Puncture Site pCO2 pO2 HCO3 ABG pH ABG Total CO2 ABG O2 Saturation ABG Base Excess Heriberto Test ABG Potassium VBG pH VBG pCO2 VBG HCO3 VBG Total CO2 VBG O2 Sat (Calc) VBG Base Excess VBG Potassium A-a O2 Difference Respiratory Index Glucose Lactate Vent Mode Mechanical Rate FiO2 Tidal Volume PEEP Crit Value Called To Crit Value Called By Crit Value Read Back Blood Gas Notified Time Sodium Potassium Chloride Carbon Dioxide Anion Gap BUN Creatinine Est GFR ( Amer) Est GFR (Non-Af Amer) POC Glucose (mg/dL) 128 H Random Glucose Hemoglobin A1c Serum Osmolality Lactic Acid Calcium Phosphorus Magnesium Iron TIBC % Saturation Total Bilirubin AST ALT Alkaline Phosphatase CK-MB (Mass) Troponin I NT-Pro-B Natriuret Pep Total Protein Albumin Globulin Albumin/Globulin Ratio Lipase TSH 3rd Generation Arterial Blood Potassium Venous Blood Potassium Urine Color Urine Clarity Urine pH Ur Specific [place] Urine Protein Urine Glucose (UA) Urine Ketones Urine Blood Urine Nitrate Urine Bilirubin Urine Urobilinogen Ur Leukocyte Esterase Urine WBC (Auto) Urine RBC (Auto) Ur Squamous Epith Cells Urine Bacteria Urine Osmolality 563 Ur Random Creatinine 75.7 Ur Random Sodium 24 Ur Random Uric Acid 15.0 Gastric Occult Blood Positive H Urine Opiates Screen Negative Urine Methadone Screen Negative Ur Barbiturates Screen Negative Ur Phencyclidine Scrn Negative Ur Amphetamines Screen Negative U Benzodiazepines Scrn Negative U Oth Cocaine Metabols Negative U Cannabinoids Screen Negative Serum Ketones Blood Type Antibody Screen
[2017-03-22] MEDS ORDERED: Vancomycin 1 gm/NS 200 ml 1 GM/200 ML BAG IVPB SCH (18:00)
[2017-03-22] MEDS ORDERED: Midazolam 2 MG/2 ML VIAL IVP PRN (18:51)
[2017-03-22] MEDS ORDERED: Vancomycin 1 GM 1 GM/250 ML BAG IVPB SCH (21:00)
--- NOTE | 2017-03-22 21:23 | RAD ---
HISTORY: et tubew COMPARISON: Comparison is made with the previous study dated 03/21/2017 FINDINGS: LUNGS: The ET tube is seen at appropriate position. Mild pulmonary vascular congestion and small right lower lung infiltrate are noted. PLEURA: No significant pleural effusion identified, no pneumothorax apparent. CARDIOVASCULAR: Normal. OSSEOUS STRUCTURES: No significant abnormalities. VISUALIZED UPPER ABDOMEN: NG tube seen extending to the abdomen. OTHER FINDINGS: None. IMPRESSION: Mild pulmonary vascular congestion. Appropriate position of the support devices.
[2017-03-23] MEDS: Albuterol-Ipratrop 3 mg / 0.5 (3 ml) UD INH SCH ×4 (01:00→19:40)
[2017-03-23] MEDS: Piperacill/Tazo 2.25gm in Dex 2.25 GM/50 ML BAG IVPB SCH ×3 (04:26→21:14)
[2017-03-23 05:09] LABS: BASO % 0.1 % (0.0-2.0); EOS # 0.1 K/uL (0.0-0.7); EOS % 0.6 % (0.0-4.0); LYMPH # 0.5 K/uL (1.0-4.3); LYMPH % 4.8 % (20.0-40.0); MEAN CELL VOLUME 99.1 fL (80.0-94.0); MEAN CORPUSCULAR HGB CONC 32.3 g/dL (33.0-37.0); MEAN PLATELET VOLUME 14.5 fL (7.2-11.7); MONO # 0.2 K/uL (0.0-0.8); MONO % 1.9 % (0.0-10.0); NEUT # 10.1 K/uL (1.8-7.0); NEUT % 92.6 % (50.0-75.0); PLATELET COUNT 77 K/uL (130-400); RBC 2.18 Mil/uL (4.40-5.90); WHITE BLOOD COUNT 10.9 K/uL (4.8-10.8)
[2017-03-23 05:21] LABS: ALB/GLOB RATIO 0.6 (1.0-2.1); ALBUMIN 2.4 g/dL (3.5-5.0); ALT/SGPT 32 U/L (21-72); AST/SGOT 67 U/L (17-59); BLOOD UREA NITROGEN 107 mg/dL (9-20); CALCIUM 6.2 mg/dl (8.6-10.4); GFR AFRICAN-AMERICAN 36; GFR NON-AFRICAN AMERICAN 30; MAGNESIUM 2.4 mg/dL (1.6-2.3)
[2017-03-23 05:34] LABS: ABG ALLEN TEST POS; ARTERIAL BLOOD GAS HCO3 23.9 mmol/L (21-28); ARTERIAL BLOOD GAS PCO2 26 mm/Hg (35-45); ARTERIAL BLOOD GAS PO2 215 mm/Hg (80-100); ARTERIAL BLOOD GAS TCO2 21.1 mmol/L (22-28)
[2017-03-23] MEDS: (Novolog) Insulin Aspart, Recombinant 100 u/ml 10 ml vial SC SCH ×5 (05:53→23:58)
[2017-03-23 06:35] LABS: BANDS 8 % (0-2); LYMPHOCYTE 5 % (20-40); MONOCYTE 2 % (0-10); NEUTROPHIL 85 % (50-75); PLATELET ESTIMATE DECREASED (NORMAL); TOTAL CELLS COUNTED 100
[2017-03-23 06:59] LABS: ALB/GLOB RATIO 0.6 (1.0-2.1); ALBUMIN 2.6 g/dL (3.5-5.0); CALCIUM 6.3 mg/dl (8.6-10.4)
--- NOTE | 2017-03-23 08:42 | RAD ---
HISTORY: et tubew COMPARISON: Comparison is made with the previous study dated 03/22/2017 FINDINGS: LUNGS: No significant interval change in the lungs noted since the previous exam. The ET tube seen at appropriate position. PLEURA: No significant pleural effusion identified, no pneumothorax apparent. CARDIOVASCULAR: Normal. OSSEOUS STRUCTURES: No significant abnormalities. VISUALIZED UPPER ABDOMEN: Normal. OTHER FINDINGS: None. IMPRESSION: No significant interval change.
[2017-03-23 09:18] LABS: HEMOGLOBIN 7.3 g/dL (12.0-18.0); MEAN CELL VOLUME 98.2 fL (80.0-94.0); MEAN CORPUSCULAR HEMOGLOBIN 31.5 pg (27.0-31.0); MEAN PLATELET VOLUME 14.6 fL (7.2-11.7); RBC 2.32 Mil/uL (4.40-5.90); RED CELL DISTRIBUTION WIDTH 17.4 % (11.5-14.5); WHITE BLOOD COUNT 12.7 K/uL (4.8-10.8)
[2017-03-23] MEDS: Multiple Vitamins Oral Solution GT SCH (10:05)
[2017-03-23] MEDS ORDERED: (Novolog) Insulin Aspart, Recombinant 100 u/ml 10 ml vial SC STA (12:15)
--- NOTE | 2017-03-23 15:21 | CP.CCUPN ---
CCU Subjective - Physician Review Events Since Last Encounter (Free Text): 03/23/17 15:19 Patient seen and examined in the intensive care unit. 87yo M. PMHx Parkinson's, Alzheimers's, PEG, hypertension, diabetes, anemia, chronic diastolic CHF, thrombocytopenia, Hematuria. Intubated in field for respiratory failure. remained intubated on ventilatory support FiO2 decreased to 40% open eyes to stimuli but does not follow commands Persistent diarrhea with stool C. difficile negative Afebrile urine culture positive for Proteus feeding on hold secondary to diarrhea CCU Objective - Vital Signs / Intake & Output Vital Signs (Last 4 hours): Vital Signs Temp Pulse Resp BP Pulse Ox 03/23/17 15:15 96 H 18 116/64 100 03/23/17 15:13 98.7 F 97 H 21 116/64 03/23/17 15:00 90 18 100 03/23/17 14:24 104 H 26 H 103/60 100 03/23/17 14:23 98.7 F 100 H 25 H 103/60 03/23/17 14:09 100 H 24 110/58 L 100 03/23/17 14:00 101 H 24 100 03/23/17 13:54 95 H 19 105/60 100 03/23/17 13:39 94 H 22 107/60 100 03/23/17 13:30 98.5 F 97 H 23 107/60 03/23/17 13:24 96 H 21 100/58 L 100 03/23/17 13:10 98.4 F 95 H 20 112/56 L 03/23/17 13:09 99 H 23 112/56 L 100 03/23/17 13:00 94 H 21 100 03/23/17 12:55 98.5 F 94 H 23 106/59 L 03/23/17 12:54 92 H 21 106/59 L 100 03/23/17 12:41 98.8 F 94 H 21 104/60 03/23/17 12:39 96 H 17 104/60 100 03/23/17 12:30 98.4 F 94 H 25 H 112/63 03/23/17 12:24 100 H 28 H 112/63 100 03/23/17 12:09 89 106/56 L 100 03/23/17 12:00 92 H 16 100 03/23/17 11:55 92 H 22 113/62 100 03/23/17 11:54 97 H 24 100 Intake and Output (Last 8hrs): Intake & Output 03/23/17 03/23/17 03/23/17 06:59 14:59 22:59 Intake Total 1846.5 1221.6 128.8 Output Total 470 335 75 Balance 1376.5 886.6 53.8 Weight 129 lb 11.2 oz Intake: IV 0 Intake, IV Amount 1026.5 651.6 78.8 Right Distal Port 50 Subclavian Right Medial Port 1000 575 75 Subclavian Right Proximal Port 26.5 26.6 3.8 Subclavian Tube Feeding 320 270 0 Blood Product 300 50 Red Blood Cells Cpd As1 0 Lr Unit [id number] Other 500 Output: Urine 470 335 75 Urethral ([place]) 470 335 75 Other: # Bowel Movements 1 - Physical Exam Head: Positive for: Atraumatic, Normocephalic Pupils: Positive for: PERRL Conjunctiva: Positive for: Normal Mouth: Positive for: Moist Mucous Membranes Respiratory/Chest: Positive for: Clear to Auscultation, Respiratory Distress Cardiovascular: Positive for: Regular Rate and Rhythm Abdomen: Positive for: Normal Bowel Sounds. Negative for: Tenderness, Distention Upper Extremity: Positive for: Normal Inspection Lower Extremity: Positive for: Other (sacral decubitus) Psychiatric: Negative for: Alert, Oriented x 3 - Medications Active Medications: Active Medications Generic Name Dose Route Start Last Admin Trade Name Freq PRN Reason Stop Dose Admin Albuterol/Ipratropium 3 ml 03/22/17 02:00 03/23/17 13:39 Duoneb 3 Mg/0.5 Mg (3 Ml) Ud INH 3 ml RQ6 AUGUST Administration Heparin Sodium (Porcine) 5,000 units 03/22/17 10:15 03/23/17 10:06 Heparin SC 5,000 units Q12H AUGUST Administration Hydrocortisone Sodium Succinate 100 mg 03/22/17 19:15 03/23/17 10:24 Solu-Cortef IV 100 mg Q8H AUGUST Administration Piperacillin Sod/Tazobactam Sod 2.25 gm in 50 mls @ 100 mls/hr 03/21/17 21:00 03/23/17 13:21 Zosyn 2.25 Gm Iv Premix IVPB 100 mls/hr Q8H AUGUST Administration Norepinephrine Bitartrate 8 mg 258 mls @ 7.74 mls/hr 03/22/17 08:36 03/22/17 23:01 / Sodium Chloride IV 0 mcg/min .Q24H PRN 0 mls/hr TITRATE PER MD ORDER Titration Protocol 4 MCG/MIN Vancomycin/Sodium Chloride 1 gm in 200 mls @ 133.333 mls/hr 03/22/17 18:00 18:08 Vancomycin 1 Gm/Ns 200 Ml IVPB 03/27/17 18:01 133.333 mls/hr Q24H AUGUST Administration Sodium Bicarbonate 75 meq/ 1,075 mls @ 75 mls/hr 03/23/17 09:37 03/23/17 10: 05 Sodium Chloride IV Not Given .[id number] AUGUST Insulin Aspart 0 unit 03/22/17 05:15 03/23/17 05:53 Novolog SC 5 unit Q6H AUGUST Administration Protocol Midazolam HCl 2 mg 03/22/17 18:51 Versed Inj IVP Q4H PRN Agitation Multivitamins/Vitamin C 5 ml 03/22/17 10:00 03/23/17 10:05 Multi-Delyn Liquid GT 5 ml DAILY AUGUST Administration Pantoprazole Sodium 40 mg 03/22/17 10:00 03/23/17 10:05 Protonix Inj IVP 40 mg DAILY AUGUST Administration - Patient Studies Lab Studies: Microbiology Studies 03/21/17 19:40 Blood Culture - Preliminary Blood NO GROWTH AFTER 24 HOURS 03/21/17 22:44 MRSA Culture (Admit) - Final Naris MRSA DETECTED 03/21/17 21:03 Urine Culture - Final Urine Proteus Mirabilis 03/21/17 20:31 Gram Stain - Final Trachasp Sputum Culture - Preliminary Staphylococcus Aureus Gram Negative Gil 03/21/17 19:10 Blood Culture - Preliminary Blood NO GROWTH AFTER 24 HOURS Lab Studies 03/23/17 03/23/17 03/23/17 Range/Units 10:42 09:01 08:12 WBC 12.7 H (4.8-10.8) K/uL RBC 2.32 L (4.40-5.90) Mil/uL Hgb 7.3 L (12.0-18.0) g/dL Hct 22.8 L (35.0-51.0) % MCV 98.2 H (80.0-94.0) fL MCH 31.5 H (27.0-31.0) pg MCHC 32.0 L (33.0-37.0) g/dL RDW 17.4 H (11.5-14.5) % Plt Count 82 L (130-400) K/uL MPV 14.6 H (7.2-11.7) fL Neut % (Auto) (50.0-75.0) % Lymph % (Auto) (20.0-40.0) % [place] % (Auto) (0.0-10.0) % Eos % (Auto) (0.0-4.0) % Baso % (Auto) (0.0-2.0) % Neut # (1.8-7.0) K/uL Lymph # (1.0-4.3) K/uL [place] # (0.0-0.8) K/uL Eos # (0.0-0.7) K/uL Baso # (0.0-0.2) K/uL Neutrophils % (Manual) (50-75) % Band Neutrophils % (0-2) % Lymphocytes % (Manual) (20-40) % Monocytes % (Manual) (0-10) % Differential Comment Platelet Estimate (NORMAL) Puncture Site pCO2 (35-45) mm/Hg pO2 (80-100) mm/Hg HCO3 (21-28) mmol/L ABG pH (7.35-7.45) ABG Total CO2 (22-28) mmol/L ABG O2 Saturation (95-98) % ABG Base Excess (-2.0-3.0) mmol/L Heriberto Test ABG Potassium (3.6-5.2) mmol/L A-a O2 Difference mm/Hg Respiratory Index Glucose (75-110) mg/dl Lactate (0.7-2.1) mmol/L Vent Mode Mechanical Rate FiO2 % Tidal Volume PEEP Crit Value Called To Crit Value Called By Crit Value Read Back Blood Gas Notified Time Sodium (132-148) mmol/L Potassium (3.6-5.2) mmol/L Chloride (98-107) mmol/L Carbon Dioxide (22-30) mmol/L Anion Gap (10-20) BUN (9-20) mg/dL Creatinine (0.8-1.5) mg/dL Est GFR ( Amer) Est GFR (Non-Af Amer) POC Glucose (mg/dL) (65-110) mg/dL Random Glucose (75-110) mg/dL Calcium (8.6-10.4) mg/dl Phosphorus (2.5-4.5) mg/dL Magnesium (1.6-2.3) mg/dL Total Bilirubin (0.2-1.3) mg/dL AST (17-59) U/L ALT (21-72) U/L Alkaline Phosphatase (38-126) U/L Total Protein (6.3-8.3) g/dL Albumin (3.5-5.0) g/dL Globulin (2.2-3.9) gm/dL Albumin/Globulin Ratio (1.0-2.1) Arterial Blood Potassium (3.6-5.2) mmol/L C. difficile Ag & Toxin Negative (NEGATIVE) Blood Type A POSITIVE Antibody Screen Negative 03/23/17 03/23/17 03/23/17 Range/Units 06:38 05:25 05:24 WBC (4.8-10.8) K/uL RBC (4.40-5.90) Mil/uL Hgb (12.0-18.0) g/dL Hct (35.0-51.0) % MCV (80.0-94.0) fL MCH (27.0-31.0) pg MCHC (33.0-37.0) g/dL RDW (11.5-14.5) % Plt Count (130-400) K/uL MPV (7.2-11.7) fL Neut % (Auto) (50.0-75.0) % Lymph % (Auto) (20.0-40.0) % [place] % (Auto) (0.0-10.0) % Eos % (Auto) (0.0-4.0) % Baso % (Auto) (0.0-2.0) % Neut # (1.8-7.0) K/uL Lymph # (1.0-4.3) K/uL [place] # (0.0-0.8) K/uL Eos # (0.0-0.7) K/uL Baso # (0.0-0.2) K/uL Neutrophils % (Manual) (50-75) % Band Neutrophils % (0-2) % Lymphocytes % (Manual) (20-40) % Monocytes % (Manual) (0-10) % Differential Comment Platelet Estimate (NORMAL) Puncture Site Rr pCO2 26 L (35-45) mm/Hg pO2 215 H (80-100) mm/Hg HCO3 23.9 (21-28) mmol/L ABG pH 7.50 H (7.35-7.45) ABG Total CO2 21.1 L (22-28) mmol/L ABG O2 Saturation 100.0 H (95-98) % ABG Base Excess -1.4 (-2.0-3.0) mmol/L Heriberto Test Pos ABG Potassium 3.8 (3.6-5.2) mmol/L A-a O2 Difference 109.0 mm/Hg Respiratory Index 0.5 Glucose 456 H* D (75-110) mg/dl Lactate 1.4 (0.7-2.1) mmol/L Vent Mode Prvc Mechanical Rate 14 FiO2 50.0 % Tidal Volume 450 PEEP 5 Crit Value Called To Jean rn Crit Value Called By Patel housefellow Crit Value Read Back Y Blood Gas Notified Time 534 Sodium 153 H 159.0 H (132-148) mmol/L Potassium 4.0 (3.6-5.2) mmol/L Chloride 126 H 131.0 H (98-107) mmol/L Carbon Dioxide 21 L (22-30) mmol/L Anion Gap 10 (10-20) BUN 111 H* (9-20) mg/dL Creatinine 2.1 H (0.8-1.5) mg/dL Est GFR ( Amer) 36 Est GFR (Non-Af Amer) 30 POC Glucose (mg/dL) 392 H (65-110) mg/dL Random Glucose 427 H* (75-110) mg/dL Calcium 6.3 L (8.6-10.4) mg/dl Phosphorus (2.5-4.5) mg/dL Magnesium (1.6-2.3) mg/dL Total Bilirubin 0.9 (0.2-1.3) mg/dL AST 73 H (17-59) U/L ALT 38 (21-72) U/L Alkaline Phosphatase 157 H (38-126) U/L Total Protein 7.0 (6.3-8.3) g/dL Albumin 2.6 L (3.5-5.0) g/dL Globulin 4.4 H (2.2-3.9) gm/dL Albumin/Globulin Ratio 0.6 L (1.0-2.1) Arterial Blood Potassium 3.8 (3.6-5.2) mmol/L C. difficile Ag & Toxin (NEGATIVE) Blood Type Antibody Screen 03/23/17 03/23/17 03/22/17 Range/Units 04:57 04:57 23:05 WBC 10.9 H (4.8-10.8) K/uL RBC 2.18 L (4.40-5.90) Mil/uL Hgb 7.0 L D (12.0-18.0) g/dL Hct 21.6 L (35.0-51.0) % MCV 99.1 H D (80.0-94.0) fL MCH 32.0 H (27.0-31.0) pg MCHC 32.3 L (33.0-37.0) g/dL RDW 17.0 H (11.5-14.5) % Plt Count 77 L (130-400) K/uL MPV 14.5 H (7.2-11.7) fL Neut % (Auto) 92.6 H (50.0-75.0) % Lymph % (Auto) 4.8 L (20.0-40.0) % [place] % (Auto) 1.9 (0.0-10.0) % Eos % (Auto) 0.6 (0.0-4.0) % Baso % (Auto) 0.1 (0.0-2.0) % Neut # 10.1 H (1.8-7.0) K/uL Lymph # 0.5 L (1.0-4.3) K/uL [place] # 0.2 (0.0-0.8) K/uL Eos # 0.1 (0.0-0.7) K/uL Baso # 0.0 (0.0-0.2) K/uL Neutrophils % (Manual) 85 H (50-75) % Band Neutrophils % 8 H (0-2) % Lymphocytes % (Manual) 5 L (20-40) % Monocytes % (Manual) 2 (0-10) % Differential Comment Platelet Estimate Decreased L (NORMAL) Puncture Site pCO2 (35-45) mm/Hg pO2 (80-100) mm/Hg HCO3 (21-28) mmol/L ABG pH (7.35-7.45) ABG Total CO2 (22-28) mmol/L ABG O2 Saturation (95-98) % ABG Base Excess (-2.0-3.0) mmol/L Heriberto Test ABG Potassium (3.6-5.2) mmol/L A-a O2 Difference mm/Hg Respiratory Index Glucose (75-110) mg/dl Lactate (0.7-2.1) mmol/L Vent Mode Mechanical Rate FiO2 % Tidal Volume PEEP Crit Value Called To Crit Value Called By Crit Value Read Back Blood Gas Notified Time Sodium < 75 L* D (132-148) mmol/L Potassium 3.7 (3.6-5.2) mmol/L Chloride 127 H (98-107) mmol/L Carbon Dioxide 21 L (22-30) mmol/L Anion Gap 0 L (10-20) BUN 107 H* (9-20) mg/dL Creatinine 2.1 H (0.8-1.5) mg/dL Est GFR ( Amer) 36 Est GFR (Non-Af Amer) 30 POC Glucose (mg/dL) 267 H (65-110) mg/dL Random Glucose 393 H (75-110) mg/dL Calcium 6.2 L (8.6-10.4) mg/dl Phosphorus 2.4 L (2.5-4.5) mg/dL Magnesium 2.4 H (1.6-2.3) mg/dL Total Bilirubin 0.9 (0.2-1.3) mg/dL AST 67 H (17-59) U/L ALT 32 (21-72) U/L Alkaline Phosphatase 154 H D (38-126) U/L Total Protein 6.5 (6.3-8.3) g/dL Albumin 2.4 L (3.5-5.0) g/dL Globulin 4.1 H (2.2-3.9) gm/dL Albumin/Globulin Ratio 0.6 L (1.0-2.1) Arterial Blood Potassium (3.6-5.2) mmol/L C. difficile Ag & Toxin (NEGATIVE) Blood Type Antibody Screen 03/22/17 Range/Units 17:31 WBC (4.8-10.8) K/uL RBC (4.40-5.90) Mil/uL Hgb (12.0-18.0) g/dL Hct (35.0-51.0) % MCV (80.0-94.0) fL MCH (27.0-31.0) pg MCHC (33.0-37.0) g/dL RDW (11.5-14.5) % Plt Count (130-400) K/uL MPV (7.2-11.7) fL Neut % (Auto) (50.0-75.0) % Lymph % (Auto) (20.0-40.0) % [place] % (Auto) (0.0-10.0) % Eos % (Auto) (0.0-4.0) % Baso % (Auto) (0.0-2.0) % Neut # (1.8-7.0) K/uL Lymph # (1.0-4.3) K/uL [place] # (0.0-0.8) K/uL Eos # (0.0-0.7) K/uL Baso # (0.0-0.2) K/uL Neutrophils % (Manual) (50-75) % Band Neutrophils % (0-2) % Lymphocytes % (Manual) (20-40) % Monocytes % (Manual) (0-10) % Differential Comment Platelet Estimate (NORMAL) Puncture Site pCO2 (35-45) mm/Hg pO2 (80-100) mm/Hg HCO3 (21-28) mmol/L ABG pH (7.35-7.45) ABG Total CO2 (22-28) mmol/L ABG O2 Saturation (95-98) % ABG Base Excess (-2.0-3.0) mmol/L Heriberto Test ABG Potassium (3.6-5.2) mmol/L A-a O2 Difference mm/Hg Respiratory Index Glucose (75-110) mg/dl Lactate (0.7-2.1) mmol/L Vent Mode Mechanical Rate FiO2 % Tidal Volume PEEP Crit Value Called To Crit Value Called By Crit Value Read Back Blood Gas Notified Time Sodium (132-148) mmol/L Potassium (3.6-5.2) mmol/L Chloride (98-107) mmol/L Carbon Dioxide (22-30) mmol/L Anion Gap (10-20) BUN (9-20) mg/dL Creatinine (0.8-1.5) mg/dL Est GFR ( Amer) Est GFR (Non-Af Amer) POC Glucose (mg/dL) 191 H (65-110) mg/dL Random Glucose (75-110) mg/dL Calcium (8.6-10.4) mg/dl Phosphorus (2.5-4.5) mg/dL Magnesium (1.6-2.3) mg/dL Total Bilirubin (0.2-1.3) mg/dL AST (17-59) U/L ALT (21-72) U/L Alkaline Phosphatase (38-126) U/L Total Protein (6.3-8.3) g/dL Albumin (3.5-5.0) g/dL Globulin (2.2-3.9) gm/dL Albumin/Globulin Ratio (1.0-2.1) Arterial Blood Potassium (3.6-5.2) mmol/L C. difficile Ag & Toxin (NEGATIVE) Blood Type Antibody Screen Laboratory Results - last 24 hr 03/22/17 03/22/17 03/23/17 17:31 23:05 04:57 WBC 10.9 H RBC 2.18 L Hgb 7.0 L D Hct 21.6 L MCV 99.1 H D MCH 32.0 H MCHC 32.3 L RDW 17.0 H Plt Count 77 L MPV 14.5 H Neut % (Auto) 92.6 H Lymph % (Auto) 4.8 L [place] % (Auto) 1.9 Eos % (Auto) 0.6 Baso % (Auto) 0.1 Neut # 10.1 H Lymph # 0.5 L [place] # 0.2 Eos # 0.1 Baso # 0.0 Neutrophils % (Manual) 85 H Band Neutrophils % 8 H Lymphocytes % (Manual) 5 L Monocytes % (Manual) 2 Differential Comment Platelet Estimate Decreased L Puncture Site pCO2 pO2 HCO3 ABG pH ABG Total CO2 ABG O2 Saturation ABG Base Excess Heriberto Test ABG Potassium A-a O2 Difference Respiratory Index Glucose Lactate Vent Mode Mechanical Rate FiO2 Tidal Volume PEEP Crit Value Called To Crit Value Called By Crit Value Read Back Blood Gas Notified Time Sodium Potassium Chloride Carbon Dioxide Anion Gap BUN Creatinine Est GFR ( Amer) Est GFR (Non-Af Amer) POC Glucose (mg/dL) 191 H 267 H Random Glucose Calcium Phosphorus Magnesium Total Bilirubin AST ALT Alkaline Phosphatase Total Protein Albumin Globulin Albumin/Globulin Ratio Arterial Blood Potassium C. difficile Ag & Toxin Blood Type Antibody Screen 03/23/17 03/23/17 03/23/17 04:57 05:24 05:25 WBC RBC Hgb Hct MCV MCH MCHC RDW Plt Count MPV Neut % (Auto) Lymph % (Auto) [place] % (Auto) Eos % (Auto) Baso % (Auto) Neut # Lymph # [place] # Eos # Baso # Neutrophils % (Manual) Band Neutrophils % Lymphocytes % (Manual) Monocytes % (Manual) Differential Comment Platelet Estimate Puncture Site Rr pCO2 26 L pO2 215 H HCO3 23.9 ABG pH 7.50 H ABG Total CO2 21.1 L ABG O2 Saturation 100.0 H ABG Base Excess -1.4 Heriberto Test Pos ABG Potassium 3.8 A-a O2 Difference 109.0 Respiratory Index 0.5 Glucose 456 H* D Lactate 1.4 Vent Mode Prvc Mechanical Rate 14 FiO2 50.0 Tidal Volume 450 PEEP 5 Crit Value Called To Jean roche Crit Value Called By Patel housefellow Crit Value Read Back Y Blood Gas Notified Time 534 Sodium < 75 L* D 159.0 H Potassium 3.7 Chloride 127 H 131.0 H Carbon Dioxide 21 L Anion Gap 0 L BUN 107 H* Creatinine 2.1 H Est GFR ( Amer) 36 Est GFR (Non-Af Amer) 30 POC Glucose (mg/dL) 392 H Random Glucose 393 H Calcium 6.2 L Phosphorus 2.4 L Magnesium 2.4 H Total Bilirubin 0.9 AST 67 H ALT 32 Alkaline Phosphatase 154 H D Total Protein 6.5 Albumin 2.4 L Globulin 4.1 H Albumin/Globulin Ratio 0.6 L Arterial Blood Potassium 3.8 C. difficile Ag & Toxin Blood Type Antibody Screen 03/23/17 03/23/17 03/23/17 06:38 08:12 09:01 WBC 12.7 H RBC 2.32 L Hgb 7.3 L Hct 22.8 L MCV 98.2 H MCH 31.5 H MCHC 32.0 L RDW 17.4 H Plt Count 82 L MPV 14.6 H Neut % (Auto) Lymph % (Auto) [place] % (Auto) Eos % (Auto) Baso % (Auto) Neut # Lymph # [place] # Eos # Baso # Neutrophils % (Manual) Band Neutrophils % Lymphocytes % (Manual) Monocytes % (Manual) Differential Comment Platelet Estimate Puncture Site pCO2 pO2 HCO3 ABG pH ABG Total CO2 ABG O2 Saturation ABG Base Excess Heriberto Test ABG Potassium A-a O2 Difference Respiratory Index Glucose Lactate Vent Mode Mechanical Rate FiO2 Tidal Volume PEEP Crit Value Called To Crit Value Called By Crit Value Read Back Blood Gas Notified Time Sodium 153 H Potassium 4.0 Chloride 126 H Carbon Dioxide 21 L Anion Gap 10 BUN 111 H* Creatinine 2.1 H Est GFR ( Amer) 36 Est GFR (Non-Af Amer) 30 POC Glucose (mg/dL) Random Glucose 427 H* Calcium 6.3 L Phosphorus Magnesium Total Bilirubin 0.9 AST 73 H ALT 38 Alkaline Phosphatase 157 H Total Protein 7.0 Albumin 2.6 L Globulin 4.4 H Albumin/Globulin Ratio 0.6 L Arterial Blood Potassium C. difficile Ag & Toxin Negative Blood Type Antibody Screen 03/23/17 10:42 WBC RBC Hgb Hct MCV MCH MCHC RDW Plt Count MPV Neut % (Auto) Lymph % (Auto) [place] % (Auto) Eos % (Auto) Baso % (Auto) Neut # Lymph # [place] # Eos # Baso # Neutrophils % (Manual) Band Neutrophils % Lymphocytes % (Manual) Monocytes % (Manual) Differential Comment Platelet Estimate Puncture Site pCO2 pO2 HCO3 ABG pH ABG Total CO2 ABG O2 Saturation ABG Base Excess Heriberto Test ABG Potassium A-a O2 Difference Respiratory Index Glucose Lactate Vent Mode Mechanical Rate FiO2 Tidal Volume PEEP Crit Value Called To Crit Value Called By Crit Value Read Back Blood Gas Notified Time Sodium Potassium Chloride Carbon Dioxide Anion Gap BUN Creatinine Est GFR ( Amer) Est GFR (Non-Af Amer) POC Glucose (mg/dL) Random Glucose Calcium Phosphorus Magnesium Total Bilirubin AST ALT Alkaline Phosphatase Total Protein Albumin Globulin Albumin/Globulin Ratio Arterial Blood Potassium C. difficile Ag & Toxin Blood Type A POSITIVE Antibody Screen Negative Fingerstick Blood Sugar Results: 500 Review of Systems - Review of Systems Systems not reviewed;Unavailable: Intubated Critical Care Progress Note - Ventilator Checklist Head of Bed 30 Degrees: Yes Daily Sedation Vacation: Yes Daily Spontaneous Breathing Trial: No PUD Prophalyxis: Yes DVT Prophylaxis: Yes - [facility] Assessment/Plan (1) Respiratory failure with hypoxia and hypercapnia Current Visit: Yes Status: Acute Priority: High Onset Date: ~03/21/17 Comment: respiratory failure secondary to sepsis Sputum positive for gram-negative and staph aureus On IV antibiotics wean as tolerated. hold feeding On bicarbonate drip reduced to 75 mL Transfuse 1 unit packed RBCs (2) Anemia Current Visit: Yes Status: Acute Comment: anemia secondary to GI bleed Transfuse 1 unit packed RBCs Elevated BUNs secondary to GI bleed (3) CLEMENT (acute kidney injury) Current Visit: Yes Status: Acute Priority: High (4) Septic shock Current Visit: Yes Status: Acute
--- NOTE | 2017-03-23 15:39 | CP.PCM.CON ---
History of Present Illness - History of Present Illness History of Present Illness: 87 year old male presents to the emergency department via EMS, BLS only, with severe respiratory distress using bag valve mask upon arrival. Patient is lethargic with decreased respiratory effort since this morning, 03/21/2016. Patient was referred from [facility] ([facility]) for evaluation but ambulance brought him here during route due to deteriorating condition. Remains intubated/ sedated in ICU in NAD CXR read as negative Now has GI Bleed asn Urosepsis IV antibiotic in progress - Medical History PMH: Parkinson's Alzheimers's hypertension diabetes anemia chf thrombocytopenia Hematuria Review of Systems - Review of Systems Systems not reviewed;Unavailable: Altered Mental Status, Intubated - Constitutional Constitutional: As Per HPI - EENT Eyes: absent: As Per HPI, Blind Spots, Blurred Vision, Change in Vision, Decreased Night Vision, Diplopia, Discharge, Dry Eye, Exophthalmos, Floaters, Irritation, Itchy Eyes, Loss of Peripheral Vision, Pain, Photophobia, Requires Corrective Lenses, Sees Flashes, Spots in Vision, Tunnel Vision, Other Visual Disturbances, Loss of Vision, Other Ears: absent: As Per HPI, Decreased Hearing, Ear Discharge, Ear Pain, Tinnitus, Abnormal Hearing, Disequilibrium, Dizziness, Other Nose/Mouth/Throat: absent: As Per HPI, Epistaxis, Nasal Congestion, Nasal Discharge, Nasal Obstruction, Nasal Trauma, Nose Pain, Post Nasal Drip, Sinus Pain, Sinus Pressure, Bleeding Gums, Change in Voice, Dental Pain, Dry Mouth, Dysphagia, Halitosis, Hoarsness, Lip Swelling, Mouth Lesions, Mouth Pain, Odynophagia, Sore Throat, Throat Swelling, Tongue Swelling, Facial Pain, Neck Pain, Neck Mass, Other - Cardiovascular Cardiovascular: absent: As Per HPI, Acrocyanosis, Chest Pain, Chest Pain at Rest , Chest Pain with Activity, Claudication, Diaphoresis, Dyspnea, Dyspnea on Exertion, Edema, Irregular Heart Rhythm, Pain Radiating to Arm/Neck/Jaw, Leg Edema, Leg Ulcers, Lightheadedness, Orthopnea, Palpitations, Paroxysmal Nocturnal Dyspnea, Pedal Edema, Radiating Pain, Rapid Heart Rate, Slow Heart Rate, Syncope, Other - Respiratory Respiratory: As Per HPI - Gastrointestinal Gastrointestinal: absent: As Per HPI, Abdominal Pain, Belching, Bloating, Change in Bowel Habits, Change in Stool Character, Coffee Ground Emesis, Constipation, Cramping, Diarrhea, Dyspepsia, Dysphagia, Early Satiety, Excessive Flatus, Fecal Incontinence, Heartburn, Hematemesis, Hematochezia, Loose Stools, Melena, Nausea, Odynophagia, Temesmus, Vomiting, Other - Genitourinary Genitourinary: absent: As Per HPI, Change in Urinary Stream, Difficulty Urinating, Dysuria, Flank Pain, Hematuria, Pyuria, Nocturia, Urinary Incontinence, Urinary Frequency, Urinary Hesitance, Urinary Urgency, Voiding Freq/Small Amts, Freq UTI, Hx Renal/Bladder Calculi, Hx /Renal Surgery, Bladder Distension, Other - Musculoskeletal Musculoskeletal: absent: As Per HPI, Abnormal Gait, Arthralgias, Atrophy, Back Pain, Deformity, Joint Swelling, Limited Range of Motion, Loss of Height, Muscle Cramps, Muscle Weakness, Myalgias, Neck Pain, Numbness, Radiating Pain into Limb, Stiffness, Tingling, Other - Integumentary Integumentary: absent: As Per HPI, Acne, Alopecia, Bleeding Lesions, Change in Hair, Change in Nails, Change in Pigmentation, Changing Lesions, Dry Skin, Erythema, Furuncle, Hirsutism, Lesions, New Lesions, Non-Healing Lesions, Photosensitivity, Pruritus, Rash, Skin Pain, Skin Ulcer, Sores, Striae, Swelling , Unusual Bruising, Wounds, Jaundice, Other - Neurological Neurological: As Per HPI - Psychiatric Psychiatric: absent: As Per HPI, Abnormal Sleep Pattern, Anhedonia, Anxiety, Auditory Hallucinations, Behavioral Changes, Change in Appetite, Change in Libido, Confusion, Depression, Difficulty Concentrating, Hallucinations, Homicidal Ideation, Hopelessness, Irritability, Memory Loss, Mood Swings, Panic Attacks, Paranoia, Suicidal Ideation, Visual Hallucinations, Tactile Hallucinations, Other - Endocrine Endocrine: absent: As Per HPI, Change in Body Appearance, Change in Libido, Cold Intolorance, Deepening of Voice, Excessive Sweating, Fatigue, Flushing, Heat Intolorance, Increase in Ring/Shoe/Hat Size, Palpitations, Polydipsia, Polyphagia, Polyuria, Other - Hematologic/Lymphatic Hematologic: absent: As Per HPI, Easy Bleeding, Easy Bruising, Lymphadenopathy, Other 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 area as per niece - MUSCULOSKELETAL/RHEUMATOLOGICAL Hx Falls: Yes - GASTROINTESTINAL Hx Gastrointestinal Disorders: No - GENITOURINARY/GYNECOLOGICAL Hx Genitourinary Disorders: No - PSYCHIATRIC Hx Psychophysiologic Disorder: No Hx Substance Use: No - SURGICAL HISTORY Hx Surgeries: Yes (right ankle surgery, bilateral eye surgeries) - ANESTHESIA Hx Anesthesia: Yes Hx Anesthesia Reactions: No Meds Allergies/Adverse Reactions: Allergies Allergy/AdvReac Type Severity Reaction Status Date / Time No Known Allergies Allergy Verified 12/16/16 11:22 - Medications Medications: Current Medications Albuterol/Ipratropium (Duoneb 3 Mg/0.5 Mg (3 Ml) Ud) 3 ml INH RQ6 [facility] Last Admin: 03/23/17 13:39 Dose: 3 ml Heparin Sodium (Porcine) (Heparin) 5,000 units SC Q12H [facility] Last Admin: 03/23/17 10:06 Dose: 5,000 units Hydrocortisone Sodium Succinate (Solu-Cortef) 100 mg IV Q8H [facility] Last Admin: 03/23/17 10:24 Dose: 100 mg Piperacillin Sod/Tazobactam Sod (Zosyn 2.25 Gm Iv Premix) 2.25 gm in 50 mls @ 100 mls/hr IVPB Q8H [facility] Last Admin: 03/23/17 13:21 Dose: 100 mls/hr Norepinephrine Bitartrate 8 mg (/ Sodium Chloride) 258 mls @ 7.74 mls/hr IV .Q24H PRN; Protocol; 4 MCG/MIN PRN Reason: TITRATE PER MD ORDER Last Titration: 03/22/17 23:01 Dose: 0 mcg/min, 0 mls/hr Vancomycin/Sodium Chloride (Vancomycin 1 Gm/Ns 200 Ml) 1 gm in 200 mls @ 133.333 mls/hr IVPB Q24H [facility] Stop: 03/27/17 18:01 Last Admin: 03/22/17 18:08 Dose: 133.333 mls/hr Sodium Bicarbonate 75 meq/ (Sodium Chloride) 1,075 mls @ 75 mls/hr IV .[id number] [facility] Last Admin: 03/23/17 10:05 Dose: Not Given Insulin Aspart (Novolog) 0 unit SC Q6H [facility] PRN Reason: Protocol Last Admin: 03/23/17 12:30 Dose: Not Given Midazolam HCl (Versed Inj) 2 mg IVP Q4H PRN PRN Reason: Agitation Multivitamins/Vitamin C (Multi-Delyn Liquid) 5 ml GT DAILY [facility] Last Admin: 03/23/17 10:05 Dose: 5 ml Pantoprazole Sodium (Protonix Inj) 40 mg IVP DAILY [facility] Last Admin: 03/23/17 10:05 Dose: 40 mg Physical Exam - Constitutional Appears: Non-toxic, Cachectic, Chronically Ill - Head Exam Head Exam: ATRAUMATIC, NORMAL INSPECTION, NORMOCEPHALIC - Eye Exam Eye Exam: EOMI, PERRL. absent: Scleral icterus - ENT Exam ENT Exam: Mucous Membranes Dry, Normal External Ear Exam. absent: Normal Oropharynx - Neck Exam Neck exam: Negative for: Lymphadenopathy, Thyromegaly - Respiratory Exam Respiratory Exam: Decreased Breath Sounds, Rhonchi - Cardiovascular Exam Cardiovascular Exam: REGULAR RHYTHM, +S1, +S2 - GI/Abdominal Exam GI & Abdominal Exam: Diminished Bowel Sounds, Soft. absent: Tenderness - Rectal Exam Rectal Exam: Deferred - Exam Exam: NORMAL INSPECTION - Extremities Exam Extremities exam: Positive for: pedal pulses present. Negative for: calf tenderness, pedal edema, tenderness - Back Exam Back exam: absent: CVA tenderness (L), CVA tenderness (R), paraspinal tenderness - Neurological Exam Neurological exam: Alert, Altered, CN II-XII Intact Results - Vital Signs Recent Vital Signs: Last Vital Signs Temp 98.7 F 03/23/17 15:13 Pulse 96 H 03/23/17 15:15 Resp 18 03/23/17 15:15 BP 116/64 03/23/17 15:15 Pulse Ox 100 03/23/17 15:15 - Labs Result Diagrams: 03/23/17 09:01 03/23/17 06:38 Labs: Laboratory Results - last 24 hr 03/22/17 03/22/17 03/23/17 17:31 23:05 04:57 WBC 10.9 H RBC 2.18 L Hgb 7.0 L D Hct 21.6 L MCV 99.1 H D MCH 32.0 H MCHC 32.3 L RDW 17.0 H Plt Count 77 L MPV 14.5 H Neut % (Auto) 92.6 H Lymph % (Auto) 4.8 L [place] % (Auto) 1.9 Eos % (Auto) 0.6 Baso % (Auto) 0.1 Neut # 10.1 H Lymph # 0.5 L [place] # 0.2 Eos # 0.1 Baso # 0.0 Neutrophils % (Manual) 85 H Band Neutrophils % 8 H Lymphocytes % (Manual) 5 L Monocytes % (Manual) 2 Differential Comment Platelet Estimate Decreased L Puncture Site pCO2 pO2 HCO3 ABG pH ABG Total CO2 ABG O2 Saturation ABG Base Excess Heriberto Test ABG Potassium A-a O2 Difference Respiratory Index Glucose Lactate Vent Mode Mechanical Rate FiO2 Tidal Volume PEEP Crit Value Called To Crit Value Called By Crit Value Read Back Blood Gas Notified Time Sodium Potassium Chloride Carbon Dioxide Anion Gap BUN Creatinine Est GFR ( Amer) Est GFR (Non-Af Amer) POC Glucose (mg/dL) 191 H 267 H Random Glucose Calcium Phosphorus Magnesium Total Bilirubin AST ALT Alkaline Phosphatase Total Protein Albumin Globulin Albumin/Globulin Ratio Arterial Blood Potassium C. difficile Ag & Toxin Blood Type Antibody Screen 03/23/17 03/23/17 03/23/17 04:57 05:24 05:25 WBC RBC Hgb Hct MCV MCH MCHC RDW Plt Count MPV Neut % (Auto) Lymph % (Auto) [place] % (Auto) Eos % (Auto) Baso % (Auto) Neut # Lymph # [place] # Eos # Baso # Neutrophils % (Manual) Band Neutrophils % Lymphocytes % (Manual) Monocytes % (Manual) Differential Comment Platelet Estimate Puncture Site Rr pCO2 26 L pO2 215 H HCO3 23.9 ABG pH 7.50 H ABG Total CO2 21.1 L ABG O2 Saturation 100.0 H ABG Base Excess -1.4 Heriberto Test Pos ABG Potassium 3.8 A-a O2 Difference 109.0 Respiratory Index 0.5 Glucose 456 H* D Lactate 1.4 Vent Mode Prvc Mechanical Rate 14 FiO2 50.0 Tidal Volume 450 PEEP 5 Crit Value Called To Jean roche Crit Value Called By [employer] vp Crit Value Read Back Y Blood Gas Notified Time 534 Sodium < 75 L* D 159.0 H Potassium 3.7 Chloride 127 H 131.0 H Carbon Dioxide 21 L Anion Gap 0 L BUN 107 H* Creatinine 2.1 H Est GFR ( Amer) 36 Est GFR (Non-Af Amer) 30 POC Glucose (mg/dL) 392 H Random Glucose 393 H Calcium 6.2 L Phosphorus 2.4 L Magnesium 2.4 H Total Bilirubin 0.9 AST 67 H ALT 32 Alkaline Phosphatase 154 H D Total Protein 6.5 Albumin 2.4 L Globulin 4.1 H Albumin/Globulin Ratio 0.6 L Arterial Blood Potassium 3.8 C. difficile Ag & Toxin Blood Type Antibody Screen 03/23/17 03/23/17 03/23/17 06:38 08:12 09:01 WBC 12.7 H RBC 2.32 L Hgb 7.3 L Hct 22.8 L MCV 98.2 H MCH 31.5 H MCHC 32.0 L RDW 17.4 H Plt Count 82 L MPV 14.6 H Neut % (Auto) Lymph % (Auto) [place] % (Auto) Eos % (Auto) Baso % (Auto) Neut # Lymph # [place] # Eos # Baso # Neutrophils % (Manual) Band Neutrophils % Lymphocytes % (Manual) Monocytes % (Manual) Differential Comment Platelet Estimate Puncture Site pCO2 pO2 HCO3 ABG pH ABG Total CO2 ABG O2 Saturation ABG Base Excess Heriberto Test ABG Potassium A-a O2 Difference Respiratory Index Glucose Lactate Vent Mode Mechanical Rate FiO2 Tidal Volume PEEP Crit Value Called To Crit Value Called By Crit Value Read Back Blood Gas Notified Time Sodium 153 H Potassium 4.0 Chloride 126 H Carbon Dioxide 21 L Anion Gap 10 BUN 111 H* Creatinine 2.1 H Est GFR ( Amer) 36 Est GFR (Non-Af Amer) 30 POC Glucose (mg/dL) Random Glucose 427 H* Calcium 6.3 L Phosphorus Magnesium Total Bilirubin 0.9 AST 73 H ALT 38 Alkaline Phosphatase 157 H Total Protein 7.0 Albumin 2.6 L Globulin 4.4 H Albumin/Globulin Ratio 0.6 L Arterial Blood Potassium C. difficile Ag & Toxin Negative Blood Type Antibody Screen 03/23/17 10:42 WBC RBC Hgb Hct MCV MCH MCHC RDW Plt Count MPV Neut % (Auto) Lymph % (Auto) [place] % (Auto) Eos % (Auto) Baso % (Auto) Neut # Lymph # [place] # Eos # Baso # Neutrophils % (Manual) Band Neutrophils % Lymphocytes % (Manual) Monocytes % (Manual) Differential Comment Platelet Estimate Puncture Site pCO2 pO2 HCO3 ABG pH ABG Total CO2 ABG O2 Saturation ABG Base Excess Heriberto Test ABG Potassium A-a O2 Difference Respiratory Index Glucose Lactate Vent Mode Mechanical Rate FiO2 Tidal Volume PEEP Crit Value Called To Crit Value Called By Crit Value Read Back Blood Gas Notified Time Sodium Potassium Chloride Carbon Dioxide Anion Gap BUN Creatinine Est GFR ( Amer) Est GFR (Non-Af Amer) POC Glucose (mg/dL) Random Glucose Calcium Phosphorus Magnesium Total Bilirubin AST ALT Alkaline Phosphatase Total Protein Albumin Globulin Albumin/Globulin Ratio Arterial Blood Potassium C. difficile Ag & Toxin Blood Type A POSITIVE Antibody Screen Negative Assessment & Plan (1) CLEMENT (acute kidney injury) Status: Acute Priority: High (2) Anemia Status: Acute (3) Respiratory failure with hypoxia and hypercapnia Status: Acute Priority: High Onset Date: ~03/21/17 (4) Septic shock Status: Acute (5) Altered mental status Status: Acute Priority: High (6) CHF (congestive heart failure) Status: Chronic (7) Diabetes mellitus Status: Chronic Priority: Medium (8) Hyperlipidemia Status: Chronic (9) Hypertension Status: Chronic - Assessment and Plan (Free Text) Assessment: cont IV antibotics for possible urosepsis, resp failure await cultures and sensitivities discussed with dr villagomez and DR Sepideh Sheriff
[2017-03-23] MEDS: Vancomycin 1 GM in Sodium Chloride 0.9% 200 ML IVPB SCH (17:33)
--- NOTE | 2017-03-23 20:34 | CP.PCM.PN ---
Subjective - Date & Time of Evaluation Date of Evaluation: 03/23/17 Time of Evaluation: 15:00 - Subjective Subjective: clinically same Objective - Vital Signs/Intake and Output Vital Signs (last 24 hours): Temp Pulse Resp BP Pulse Ox 98.5 F 94 H 19 108/62 100 03/23/17 16:00 03/23/17 20:24 03/23/17 20:24 03/23/17 20:24 03/23/17 20:24 Intake and Output: 03/23/17 03/24/17 18:59 06:59 Intake Total 2912.4 157.6 Output Total 550 Balance 2362.4 157.6 - Medications Medications: Current Medications Albuterol/Ipratropium (Duoneb 3 Mg/0.5 Mg (3 Ml) Ud) 3 ml INH RQ6 [facility] Last Admin: 03/23/17 19:40 Dose: 3 ml Heparin Sodium (Porcine) (Heparin) 5,000 units SC Q12H [facility] Last Admin: 03/23/17 10:06 Dose: 5,000 units Hydrocortisone Sodium Succinate (Solu-Cortef) 50 mg IV Q8H [facility] Last Admin: 03/23/17 18:39 Dose: 50 mg Piperacillin Sod/Tazobactam Sod (Zosyn 2.25 Gm Iv Premix) 2.25 gm in 50 mls @ 100 mls/hr IVPB Q8H [facility] Last Admin: 03/23/17 13:21 Dose: 100 mls/hr Norepinephrine Bitartrate 8 mg (/ Sodium Chloride) 258 mls @ 7.74 mls/hr IV .Q24H PRN; Protocol; 4 MCG/MIN PRN Reason: TITRATE PER MD ORDER Last Titration: 03/23/17 07:00 Dose: 1.96 mcg/min, 3.79 mls/hr Sodium Bicarbonate 75 meq/ (Sodium Chloride) 1,075 mls @ 75 mls/hr IV .[id number] [facility] Last Admin: 03/23/17 16:50 Dose: 75 mls/hr Vancomycin HCl 1 gm/ Sodium (Chloride) 200 mls @ 133.333 mls/hr IVPB Q24H [facility] Last Admin: 03/23/17 17:33 Dose: 133.333 mls/hr Insulin Aspart (Novolog) 0 unit SC Q6 [facility] PRN Reason: Protocol Midazolam HCl (Versed Inj) 2 mg IVP Q4H PRN PRN Reason: Agitation Multivitamins/Vitamin C (Multi-Delyn Liquid) 5 ml GT DAILY [facility] Last Admin: 03/23/17 10:05 Dose: 5 ml Pantoprazole Sodium (Protonix Inj) 40 mg IVP DAILY [facility] Last Admin: 03/23/17 10:05 Dose: 40 mg - Labs Labs: 03/23/17 09:01 03/23/17 06:38 PT 14.1 SECONDS (9.7-12.2) H 03/21/17 19:13 INR 1.3 03/21/17 19:13 APTT 33 SECONDS (21-34) 03/21/17 19:13
[2017-03-24] MEDS: Albuterol-Ipratrop 3 mg / 0.5 (3 ml) UD INH SCH ×4 (02:13→19:50)
[2017-03-24] MEDS: Piperacill/Tazo 2.25gm in Dex 2.25 GM/50 ML BAG IVPB SCH ×3 (05:01→21:11)
[2017-03-24 05:29] LABS: ABG ALLEN TEST POS; ARTERIAL BLOOD GAS HCO3 26.3 mmol/L (21-28); ARTERIAL BLOOD GAS O2 SAT 99.8 % (95-98); ARTERIAL BLOOD GAS PCO2 28 mm/Hg (35-45); ARTERIAL BLOOD GAS PH 7.53 (7.35-7.45); ARTERIAL BLOOD GAS PO2 158 mm/Hg (80-100); ARTERIAL BLOOD GAS TCO2 24.3 mmol/L (22-28)
[2017-03-24] MEDS: (Novolog) Insulin Aspart, Recombinant 100 u/ml 10 ml vial SC SCH ×3 (05:57→17:22)
[2017-03-24 06:59] LABS: HEMOGLOBIN 9.4 g/dL (12.0-18.0); LYMPH # 0.8 K/uL (1.0-4.3); MEAN CELL VOLUME 94.8 fL (80.0-94.0); MEAN CORPUSCULAR HEMOGLOBIN 30.8 pg (27.0-31.0); MEAN CORPUSCULAR HGB CONC 32.5 g/dL (33.0-37.0); MEAN PLATELET VOLUME 14.5 fL (7.2-11.7); MONO # 0.5 K/uL (0.0-0.8); MONO % 2.9 % (0.0-10.0); NEUT # 15.2 K/uL (1.8-7.0); NEUT % 92.1 % (50.0-75.0); NRBC % 0.1 % (0.0-2.0); PLATELET COUNT 92 K/uL (130-400); RBC 3.05 Mil/uL (4.40-5.90); RED CELL DISTRIBUTION WIDTH 18.7 % (11.5-14.5); WHITE BLOOD COUNT 16.5 K/uL (4.8-10.8)
[2017-03-24 07:20] LABS: ALB/GLOB RATIO 0.6 (1.0-2.1); ALBUMIN 2.6 g/dL (3.5-5.0); CALCIUM 6.4 mg/dl (8.6-10.4); MAGNESIUM 2.5 mg/dL (1.6-2.3)
--- NOTE | 2017-03-24 08:11 | CP.CCUPN ---
CCU Subjective - Physician Review Subjective (Free Text): 03/24/17 08:[address] Benitez Patient seen and examined at bedside. GCS 9T ([id number]). Patient has eyes open and not moving or tracking, but no blinking response. Patient is not on scheduled sedation. Patient is intubated on Vent settings of PRVC RR 14 FiO2 50 % TV 450 PEEP 5. CPAP trials Critical Care Time Spent (in minutes): 35 CCU Objective - Vital Signs / Intake & Output Vital Signs (Last 4 hours): Vital Signs Pulse Resp BP Pulse Ox 03/24/17 06:24 108/59 L 03/24/17 06:23 72 18 100 03/24/17 06:19 69 14 112/58 L 100 03/24/17 06:00 84 18 100 03/24/17 05:24 68 19 124/66 100 03/24/17 05:00 80 16 100 03/24/17 04:24 77 18 119/62 100 Intake and Output (Last 8hrs): Intake & Output 03/23/17 03/24/17 03/24/17 22:59 06:59 14:59 Intake Total 1555.2 1630.4 Output Total 435 380 Balance 1120.2 1250.4 Weight 134 lb 6.4 oz Intake: Intake, IV Amount 680.2 630.4 Left External Jugular 50 Right Medial Port 600 600 Subclavian Right Proximal Port 30.2 30.4 Subclavian Oral 500 Tube Feeding 0 Blood Product 375 Red Blood Cells Cpd As1 325 Lr Unit [id number] Other 1000 Output: Urine 435 380 Urethral (Siu) 435 380 Other: # Bowel Movements 1 1 - Physical Exam Head: Positive for: Atraumatic, Normocephalic Pupils: Positive for: PERRL Conjunctiva: Positive for: Normal Mouth: Positive for: Moist Mucous Membranes Respiratory/Chest: Positive for: Clear to Auscultation, Respiratory Distress Cardiovascular: Positive for: Regular Rate and Rhythm Abdomen: Positive for: Normal Bowel Sounds. Negative for: Tenderness, Distention Upper Extremity: Positive for: Normal Inspection Lower Extremity: Positive for: Other (sacral decubitus) Psychiatric: Negative for: Alert, Oriented x 3 - Medications Active Medications: Active Medications Generic Name Dose Route Start Last Admin Trade Name Freq PRN Reason Stop Dose Admin Albuterol/Ipratropium 3 ml 03/22/17 02:00 03/24/17 07:45 Duoneb 3 Mg/0.5 Mg (3 Ml) Ud INH 3 ml RQ6 AUGUST Administration Heparin Sodium (Porcine) 5,000 units 03/22/17 10:15 03/23/17 21:18 Heparin SC 5,000 units Q12H AUGUST Administration Hydrocortisone Sodium Succinate 50 mg 03/23/17 17:43 03/24/17 02:08 Solu-Cortef IV 50 mg Q8H AUGUST Administration Piperacillin Sod/Tazobactam Sod 2.25 gm in 50 mls @ 100 mls/hr 03/21/17 21:00 03/24/17 05:01 Zosyn 2.25 Gm Iv Premix IVPB 100 mls/hr Q8H AUGUST Administration Norepinephrine Bitartrate 8 mg 258 mls @ 7.74 mls/hr 03/22/17 08:36 03/23/17 07:00 / Sodium Chloride IV 1.96 mcg/min .Q24H PRN 3.79 mls/hr TITRATE PER MD ORDER Titration Protocol 4 MCG/MIN Sodium Bicarbonate 75 meq/ 1,075 mls @ 75 mls/hr 03/23/17 09:37 03/24/17 06: 45 Sodium Chloride IV 75 mls/hr .[id number] AUGUST Administration Vancomycin HCl 1 gm/ Sodium 200 mls @ 133.333 mls/hr 03/23/17 18:00 03/23/17 17:33 Chloride IVPB 133.333 mls/hr Q24H AUGUST Administration Potassium Chloride 20 meq in 100 mls @ 50 mls/hr 03/24/17 08:00 Potassium Chloride 20 Meq/100 Ml IVPB 03/24/17 15:59 Q2H AUGUST Insulin Aspart 0 unit 03/24/17 00:00 03/24/17 05:57 Novolog SC 5 unit Q6 AUGUST Administration Protocol Midazolam HCl 2 mg 03/22/17 18:51 Versed Inj IVP Q4H PRN Agitation Multivitamins/Vitamin C 5 ml 03/22/17 10:00 03/23/17 10:05 Multi-Delyn Liquid GT 5 ml DAILY AUGUST Administration Pantoprazole Sodium 40 mg 03/22/17 10:00 03/23/17 10:05 Protonix Inj IVP 40 mg DAILY AUGUST Administration - Patient Studies Lab Studies: Microbiology Studies 03/21/17 19:10 Blood Culture - Preliminary Blood NO GROWTH AFTER 48 HOURS 03/21/17 19:40 Blood Culture - Preliminary Blood NO GROWTH AFTER 24 HOURS 03/21/17 22:44 MRSA Culture (Admit) - Final Naris MRSA DETECTED 03/21/17 21:03 Urine Culture - Final Urine Proteus Mirabilis 03/21/17 20:31 Gram Stain - Final Trachasp Sputum Culture - Preliminary Staphylococcus Aureus Gram Negative Gil Lab Studies 03/24/17 03/24/17 03/24/17 Range/Units 06:44 06:44 05:26 WBC 16.5 H (4.8-10.8) K/uL RBC 3.05 L (4.40-5.90) Mil/uL Hgb 9.4 L D (12.0-18.0) g/dL Hct 28.9 L (35.0-51.0) % MCV 94.8 H D (80.0-94.0) fL MCH 30.8 (27.0-31.0) pg MCHC 32.5 L (33.0-37.0) g/dL RDW 18.7 H (11.5-14.5) % Plt Count 92 L (130-400) K/uL MPV 14.5 H (7.2-11.7) fL Neut % (Auto) 92.1 H (50.0-75.0) % Lymph % (Auto) 5.0 L (20.0-40.0) % [place] % (Auto) 2.9 (0.0-10.0) % Eos % (Auto) 0.0 (0.0-4.0) % Baso % (Auto) 0.0 (0.0-2.0) % Neut # 15.2 H (1.8-7.0) K/uL Lymph # 0.8 L (1.0-4.3) K/uL [place] # 0.5 (0.0-0.8) K/uL Eos # 0.0 (0.0-0.7) K/uL Baso # 0.0 (0.0-0.2) K/uL Differential Comment Puncture Site pCO2 (35-45) mm/Hg pO2 (80-100) mm/Hg HCO3 (21-28) mmol/L ABG pH (7.35-7.45) ABG Total CO2 (22-28) mmol/L ABG O2 Saturation (95-98) % ABG Base Excess (-2.0-3.0) mmol/L Heriberto Test ABG Potassium (3.6-5.2) mmol/L A-a O2 Difference mm/Hg Respiratory Index Sodium 154 H (132-148) mmol/l Chloride 125 H (98-107) mmol/L Glucose (75-110) mg/dl Lactate (0.7-2.1) mmol/L Vent Mode Mechanical Rate FiO2 % Tidal Volume PEEP Potassium 2.9 L (3.6-5.2) mmol/L Carbon Dioxide 25 (22-30) mmol/L Anion Gap 7 L (10-20) BUN 95 H (9-20) mg/dL Creatinine 1.9 H (0.8-1.5) mg/dL Est GFR ( Amer) 41 Est GFR (Non-Af Amer) 34 POC Glucose (mg/dL) 368 H (65-110) mg/dL Random Glucose 287 H (75-110) mg/dL Calcium 6.4 L (8.6-10.4) mg/dl Phosphorus 2.8 (2.5-4.5) mg/dL Magnesium 2.5 H (1.6-2.3) mg/dL Total Bilirubin 0.9 (0.2-1.3) mg/dL AST 66 H (17-59) U/L ALT 36 (21-72) U/L Alkaline Phosphatase 175 H (38-126) U/L Total Protein 7.0 (6.3-8.3) g/dL Albumin 2.6 L (3.5-5.0) g/dL Globulin 4.4 H (2.2-3.9) gm/dL Albumin/Globulin Ratio 0.6 L (1.0-2.1) Arterial Blood Potassium (3.6-5.2) mmol/L C. difficile Ag & Toxin (NEGATIVE) Blood Type Antibody Screen 03/24/17 03/23/17 03/23/17 Range/Units 05:16 23:48 17:39 WBC (4.8-10.8) K/uL RBC (4.40-5.90) Mil/uL Hgb (12.0-18.0) g/dL Hct (35.0-51.0) % MCV (80.0-94.0) fL MCH (27.0-31.0) pg MCHC (33.0-37.0) g/dL RDW (11.5-14.5) % Plt Count (130-400) K/uL MPV (7.2-11.7) fL Neut % (Auto) (50.0-75.0) % Lymph % (Auto) (20.0-40.0) % [place] % (Auto) (0.0-10.0) % Eos % (Auto) (0.0-4.0) % Baso % (Auto) (0.0-2.0) % Neut # (1.8-7.0) K/uL Lymph # (1.0-4.3) K/uL [place] # (0.0-0.8) K/uL Eos # (0.0-0.7) K/uL Baso # (0.0-0.2) K/uL Differential Comment Puncture Site Rr pCO2 28 L (35-45) mm/Hg pO2 158 H (80-100) mm/Hg HCO3 26.3 (21-28) mmol/L ABG pH 7.53 H (7.35-7.45) ABG Total CO2 24.3 (22-28) mmol/L ABG O2 Saturation 99.8 H (95-98) % ABG Base Excess 1.7 (-2.0-3.0) mmol/L Heriberto Test Pos ABG Potassium 2.8 L (3.6-5.2) mmol/L A-a O2 Difference 164.0 mm/Hg Respiratory Index 1.0 Sodium 159.0 H (132-148) mmol/l Chloride 129.0 H (98-107) mmol/L Glucose 318 H (75-110) mg/dl Lactate 1.2 (0.7-2.1) mmol/L Vent Mode Prvc Mechanical Rate 14 FiO2 50.0 % Tidal Volume 450 PEEP 5 Potassium (3.6-5.2) mmol/L Carbon Dioxide (22-30) mmol/L Anion Gap (10-20) BUN (9-20) mg/dL Creatinine (0.8-1.5) mg/dL Est GFR ( Amer) Est GFR (Non-Af Amer) POC Glucose (mg/dL) 327 H 371 H (65-110) mg/dL Random Glucose (75-110) mg/dL Calcium (8.6-10.4) mg/dl Phosphorus (2.5-4.5) mg/dL Magnesium (1.6-2.3) mg/dL Total Bilirubin (0.2-1.3) mg/dL AST (17-59) U/L ALT (21-72) U/L Alkaline Phosphatase (38-126) U/L Total Protein (6.3-8.3) g/dL Albumin (3.5-5.0) g/dL Globulin (2.2-3.9) gm/dL Albumin/Globulin Ratio (1.0-2.1) Arterial Blood Potassium 2.8 L (3.6-5.2) mmol/L C. difficile Ag & Toxin (NEGATIVE) Blood Type Antibody Screen 03/23/17 03/23/17 03/23/17 Range/Units 12:40 10:42 09:01 WBC 12.7 H (4.8-10.8) K/uL RBC 2.32 L (4.40-5.90) Mil/uL Hgb 7.3 L (12.0-18.0) g/dL Hct 22.8 L (35.0-51.0) % MCV 98.2 H (80.0-94.0) fL MCH 31.5 H (27.0-31.0) pg MCHC 32.0 L (33.0-37.0) g/dL RDW 17.4 H (11.5-14.5) % Plt Count 82 L (130-400) K/uL MPV 14.6 H (7.2-11.7) fL Neut % (Auto) (50.0-75.0) % Lymph % (Auto) (20.0-40.0) % [place] % (Auto) (0.0-10.0) % Eos % (Auto) (0.0-4.0) % Baso % (Auto) (0.0-2.0) % Neut # (1.8-7.0) K/uL Lymph # (1.0-4.3) K/uL [place] # (0.0-0.8) K/uL Eos # (0.0-0.7) K/uL Baso # (0.0-0.2) K/uL Differential Comment Puncture Site pCO2 (35-45) mm/Hg pO2 (80-100) mm/Hg HCO3 (21-28) mmol/L ABG pH (7.35-7.45) ABG Total CO2 (22-28) mmol/L ABG O2 Saturation (95-98) % ABG Base Excess (-2.0-3.0) mmol/L Heriberto Test ABG Potassium (3.6-5.2) mmol/L A-a O2 Difference mm/Hg Respiratory Index Sodium (132-148) mmol/l Chloride (98-107) mmol/L Glucose (75-110) mg/dl Lactate (0.7-2.1) mmol/L Vent Mode Mechanical Rate FiO2 % Tidal Volume PEEP Potassium (3.6-5.2) mmol/L Carbon Dioxide (22-30) mmol/L Anion Gap (10-20) BUN (9-20) mg/dL Creatinine (0.8-1.5) mg/dL Est GFR ( Amer) Est GFR (Non-Af Amer) POC Glucose (mg/dL) > 500 H* (65-110) mg/dL Random Glucose (75-110) mg/dL Calcium (8.6-10.4) mg/dl Phosphorus (2.5-4.5) mg/dL Magnesium (1.6-2.3) mg/dL Total Bilirubin (0.2-1.3) mg/dL AST (17-59) U/L ALT (21-72) U/L Alkaline Phosphatase (38-126) U/L Total Protein (6.3-8.3) g/dL Albumin (3.5-5.0) g/dL Globulin (2.2-3.9) gm/dL Albumin/Globulin Ratio (1.0-2.1) Arterial Blood Potassium (3.6-5.2) mmol/L C. difficile Ag & Toxin (NEGATIVE) Blood Type A POSITIVE Antibody Screen Negative 03/23/17 Range/Units 08:12 WBC (4.8-10.8) K/uL RBC (4.40-5.90) Mil/uL Hgb (12.0-18.0) g/dL Hct (35.0-51.0) % MCV (80.0-94.0) fL MCH (27.0-31.0) pg MCHC (33.0-37.0) g/dL RDW (11.5-14.5) % Plt Count (130-400) K/uL MPV (7.2-11.7) fL Neut % (Auto) (50.0-75.0) % Lymph % (Auto) (20.0-40.0) % [place] % (Auto) (0.0-10.0) % Eos % (Auto) (0.0-4.0) % Baso % (Auto) (0.0-2.0) % Neut # (1.8-7.0) K/uL Lymph # (1.0-4.3) K/uL [place] # (0.0-0.8) K/uL Eos # (0.0-0.7) K/uL Baso # (0.0-0.2) K/uL Differential Comment Puncture Site pCO2 (35-45) mm/Hg pO2 (80-100) mm/Hg HCO3 (21-28) mmol/L ABG pH (7.35-7.45) ABG Total CO2 (22-28) mmol/L ABG O2 Saturation (95-98) % ABG Base Excess (-2.0-3.0) mmol/L He[place]to Test ABG Potassium (3.6-5.2) mmol/L A-a O2 Difference mm/Hg Respiratory Index Sodium (132-148) mmol/l Chloride (98-107) mmol/L Glucose (75-110) mg/dl Lactate (0.7-2.1) mmol/L Vent Mode Mechanical Rate FiO2 % Tidal Volume PEEP Potassium (3.6-5.2) mmol/L Carbon Dioxide (22-30) mmol/L Anion Gap (10-20) BUN (9-20) mg/dL Creatinine (0.8-1.5) mg/dL Est GFR ( Amer) Est GFR (Non-Af Amer) POC Glucose (mg/dL) (65-110) mg/dL Random Glucose (75-110) mg/dL Calcium (8.6-10.4) mg/dl Phosphorus (2.5-4.5) mg/dL Magnesium (1.6-2.3) mg/dL Total Bilirubin (0.2-1.3) mg/dL AST (17-59) U/L ALT (21-72) U/L Alkaline Phosphatase (38-126) U/L Total Protein (6.3-8.3) g/dL Albumin (3.5-5.0) g/dL Globulin (2.2-3.9) gm/dL Albumin/Globulin Ratio (1.0-2.1) Arterial Blood Potassium (3.6-5.2) mmol/L C. difficile Ag & Toxin Negative (NEGATIVE) Blood Type Antibody Screen Laboratory Results - last 24 hr 03/23/17 03/23/17 03/23/17 08:12 09:01 10:42 WBC 12.7 H RBC 2.32 L Hgb 7.3 L Hct 22.8 L MCV 98.2 H MCH 31.5 H MCHC 32.0 L RDW 17.4 H Plt Count 82 L MPV 14.6 H Neut % (Auto) Lymph % (Auto) [place] % (Auto) Eos % (Auto) Baso % (Auto) Neut # Lymph # [place] # Eos # Baso # Differential Comment Puncture Site pCO2 pO2 HCO3 ABG pH ABG Total CO2 ABG O2 Saturation ABG Base Excess Heriberto Test ABG Potassium A-a O2 Difference Respiratory Index Sodium Chloride Glucose Lactate Vent Mode Mechanical Rate FiO2 Tidal Volume PEEP Potassium Carbon Dioxide Anion Gap BUN Creatinine Est GFR ( Amer) Est GFR (Non-Af Amer) POC Glucose (mg/dL) Random Glucose Calcium Phosphorus Magnesium Total Bilirubin AST ALT Alkaline Phosphatase Total Protein Albumin Globulin Albumin/Globulin Ratio Arterial Blood Potassium C. difficile Ag & Toxin Negative Blood Type A POSITIVE Antibody Screen Negative 03/23/17 03/23/17 03/23/17 12:40 17:39 23:48 WBC RBC Hgb Hct MCV MCH MCHC RDW Plt Count MPV Neut % (Auto) Lymph % (Auto) [place] % (Auto) Eos % (Auto) Baso % (Auto) Neut # Lymph # [place] # Eos # Baso # Differential Comment Puncture Site pCO2 pO2 HCO3 ABG pH ABG Total CO2 ABG O2 Saturation ABG Base Excess Heriberto Test ABG Potassium A-a O2 Difference Respiratory Index Sodium Chloride Glucose Lactate Vent Mode Mechanical Rate FiO2 Tidal Volume PEEP Potassium Carbon Dioxide Anion Gap BUN Creatinine Est GFR ( Amer) Est GFR (Non-Af Amer) POC Glucose (mg/dL) > 500 H* 371 H 327 H Random Glucose Calcium Phosphorus Magnesium Total Bilirubin AST ALT Alkaline Phosphatase Total Protein Albumin Globulin Albumin/Globulin Ratio Arterial Blood Potassium C. difficile Ag & Toxin Blood Type Antibody Screen 03/24/17 03/24/17 03/24/17 05:16 05:26 06:44 WBC 16.5 H RBC 3.05 L Hgb 9.4 L D Hct 28.9 L MCV 94.8 H D MCH 30.8 MCHC 32.5 L RDW 18.7 H Plt Count 92 L MPV 14.5 H Neut % (Auto) 92.1 H Lymph % (Auto) 5.0 L [place] % (Auto) 2.9 Eos % (Auto) 0.0 Baso % (Auto) 0.0 Neut # 15.2 H Lymph # 0.8 L [place] # 0.5 Eos # 0.0 Baso # 0.0 Differential Comment Puncture Site Rr pCO2 28 L pO2 158 H HCO3 26.3 ABG pH 7.53 H ABG Total CO2 24.3 ABG O2 Saturation 99.8 H ABG Base Excess 1.7 Heriberto Test Pos ABG Potassium 2.8 L A-a O2 Difference 164.0 Respiratory Index 1.0 Sodium 159.0 H Chloride 129.0 H Glucose 318 H Lactate 1.2 Vent Mode Prvc Mechanical Rate 14 FiO2 50.0 Tidal Volume 450 PEEP 5 Potassium Carbon Dioxide Anion Gap BUN Creatinine Est GFR ( Amer) Est GFR (Non-Af Amer) POC Glucose (mg/dL) 368 H Random Glucose Calcium Phosphorus Magnesium Total Bilirubin AST ALT Alkaline Phosphatase Total Protein Albumin Globulin Albumin/Globulin Ratio Arterial Blood Potassium 2.8 L C. difficile Ag & Toxin Blood Type Antibody Screen 03/24/17 06:44 WBC RBC Hgb Hct MCV MCH MCHC RDW Plt Count MPV Neut % (Auto) Lymph % (Auto) [place] % (Auto) Eos % (Auto) Baso % (Auto) Neut # Lymph # [place] # Eos # Baso # Differential Comment Puncture Site pCO2 pO2 HCO3 ABG pH ABG Total CO2 ABG O2 Saturation ABG Base Excess Heriberto Test ABG Potassium A-a O2 Difference Respiratory Index Sodium 154 H Chloride 125 H Glucose Lactate Vent Mode Mechanical Rate FiO2 Tidal Volume PEEP Potassium 2.9 L Carbon Dioxide 25 Anion Gap 7 L BUN 95 H Creatinine 1.9 H Est GFR ( Amer) 41 Est GFR (Non-Af Amer) 34 POC Glucose (mg/dL) Random Glucose 287 H Calcium 6.4 L Phosphorus 2.8 Magnesium 2.5 H Total Bilirubin 0.9 AST 66 H ALT 36 Alkaline Phosphatase 175 H Total Protein 7.0 Albumin 2.6 L Globulin 4.4 H Albumin/Globulin Ratio 0.6 L Arterial Blood Potassium C. difficile Ag & Toxin Blood Type Antibody Screen Fingerstick Blood Sugar Results: 368 Assessment/Plan - Assessment and Plan (Free Text) Assessment: 87yo M. PMHx Parkinson's, Alzheimer's, PEG, hypertension, diabetes, anemia, chronic diastolic CHF, thrombocytopenia, Hematuria. Intubated by EMS for respiratory failure. Neuro: GCS: 9T (E2V1M6) Sedation: Versed 2mg IVP Q4H PRN 03/21 CT Head: No intracranial abnormality Pulm: acute respiratory failure, on vent. possible aspiration pneumonia, duonebs , abx. Images: 03/21 CXR: ET tube in appropriate position. No evidence of new significant infiltrate or consolidation in lungs. G tube extends into abdomen. 03/22 CXR: mild venous congestion 03/22 repeat CXR: interval improvement 03/23 CXR:no interval change Meds: Albuterol/Ipratropium 3cc INH RQ6H 03/24 05:16 pH 7.53, pCO2 28, pO2 158, pHCO3 26.3, PRVC RR 14, FiO2 50%, TV 450, PEEP 5 Cardio: Hypotension secondary to septic shock Pressors: Patient is on levophed Heme/onc: anemia of chronic disease, leucocytosis from sepsis Monitor H/H Endo: T2DM SISS for coverage Accucheck ACHS GI: NPO PEG tube, hold tube feeds Diet: NPO 03/22 CT abdomen/pelvis: NGT in stomach. PEG in stomach in good position. Diffusely fluid-filled mildly prominent small bowel, with no definite transition point. probable enteritis. Retained stool. nonspecific colonic wall thickening Nephro: Acute Renal Failure Hypernatremia 03/24 Hypokalemia, repleted I/Os: 4908/1150 = 3758.0 hourly urine output 40-60cc/hr siu for strict I/O's during acute illness 03/21 Urine Culture: proteus mirabilis, sensitive to Zosyn Soidum bicarb 75 meq IV 75cc/hr ID: septic shock due to multiple possible sources (decubitus ulcer, aspiration pneumonia) f/u blood cultures 03/21 sputum culture: S aureus, gram negative rods 03/21 Urine Culture: proteus mirabilis, sensitive to Zosyn Vanco 1gm IVPB Q24H Zosyn 2.25gm in 50cc IVPB Q8H Prophylaxis: DVT - Heparin SC 5,000 u SC Q12H SCDS GI - Protonix 40mg IVP QD - Date & Time Date: 03/24/17 Time: 14:18
[2017-03-24 09:00] LABS: BANDS 7 % (0-2); LYMPHOCYTE 6 % (20-40); MONOCYTE 1 % (0-10); NEUTROPHIL 86 % (50-75); TOTAL CELLS COUNTED 100
[2017-03-24] MEDS: Aritificial Tears (15ml) OD SCH ×8 (09:00→22:33)
[2017-03-24 09:01] LABS: ANISOCYTOSIS SLIGHT; PLATELET ESTIMATE DECREASED (NORMAL)
--- NOTE | 2017-03-24 09:08 | RAD ---
Chest x-ray single frontal view History: Endotracheal tube placement. Comparison: 03/23/2017 Findings: Lines and tubes in stable position. Moderate venous congestion. Trace left pleural effusion. Calcification at the aortic knob. Heart size within normal limits. Degenerative changes in the spine. Tubing projects over the upper mid abdomen, possibly external. Impression: Moderate venous congestion. Trace left pleural effusion. Calcification at the aortic knob.
[2017-03-24] MEDS: Multiple Vitamins Oral Solution GT SCH (10:10)
[2017-03-24] MEDS: Furosemide 100 MG in Sodium Chloride 0.9% 90 ML IVP SCH (12:15)
--- NOTE | 2017-03-24 12:15 | CP.PCM.CON ---
History of Present Illness - History of Present Illness History of Present Illness: Palliative consult requested for goals of care discussion Patient is a 87 o male admitted from [facility] with severe respiratory distress. patient was referred to [facility] but due to worsening of condition, transferred to [facility]. here on admission, patient was diagnosed with sepsis, acute respiratory failure and intubated for support of MV. The CT abdomen was significant for large retained stool, and fluid filled small bowels, possible enteritis. The urine and sputum cultures came back positive. IV Zosyn and IV Vancomycin on board. Patient is on Levophed for BP support secondary to sepsis. PMH: anemia, parkinson's, HTN, CHF, CKD, PEG Soc. Hx: lived at home with his niece until 3 months ago, placed at [facility] terminologist due to frequent falls, has one daughter but no relationship with her Fam. Hx: no signficant Review of Systems - Review of Systems All systems: reviewed and no additional remarkable complaints except Review of Systems: ROS obtained from nursing. 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 area as per niece - MUSCULOSKELETAL/RHEUMATOLOGICAL Hx Falls: Yes - GASTROINTESTINAL Hx Gastrointestinal Disorders: No - GENITOURINARY/GYNECOLOGICAL Hx Genitourinary Disorders: No - PSYCHIATRIC Hx Psychophysiologic Disorder: No Hx Substance Use: No - SURGICAL HISTORY Hx Surgeries: Yes (right ankle surgery, bilateral eye surgeries) - ANESTHESIA Hx Anesthesia: Yes Hx Anesthesia Reactions: No Meds Allergies/Adverse Reactions: Allergies Allergy/AdvReac Type Severity Reaction Status Date / Time No Known Allergies Allergy Verified 12/16/16 11:22 - Medications Medications: Current Medications Albuterol/Ipratropium (Duoneb 3 Mg/0.5 Mg (3 Ml) Ud) 3 ml INH RQ6 [facility] Last Admin: 03/24/17 07:45 Dose: 3 ml Artificial Tears (Artificial Tears) 0 ml OD Q2H [facility] Last Admin: 03/24/17 10:39 Dose: 1 drop Carbidopa/Levodopa (Sinemet 10/100) 1 tab PO QID [facility] Last Admin: 03/24/17 10:10 Dose: 1 tab Heparin Sodium (Porcine) (Heparin) 5,000 units SC Q12H [facility] Last Admin: 03/24/17 10:07 Dose: 5,000 units Hydrocortisone Sodium Succinate (Solu-Cortef) 50 mg IV Q8H [facility] Last Admin: 03/24/17 10:17 Dose: 50 mg Piperacillin Sod/Tazobactam Sod (Zosyn 2.25 Gm Iv Premix) 2.25 gm in 50 mls @ 100 mls/hr IVPB Q8H [facility] Last Admin: 03/24/17 05:01 Dose: 100 mls/hr Norepinephrine Bitartrate 8 mg (/ Sodium Chloride) 258 mls @ 7.74 mls/hr IV .Q24H PRN; Protocol; 4 MCG/MIN PRN Reason: TITRATE PER MD ORDER Last Titration: 03/23/17 07:00 Dose: 1.96 mcg/min, 3.79 mls/hr Sodium Bicarbonate 75 meq/ (Sodium Chloride) 1,075 mls @ 75 mls/hr IV .[id number] [facility] Last Admin: 03/24/17 06:45 Dose: 75 mls/hr Vancomycin HCl 1 gm/ Sodium (Chloride) 200 mls @ 133.333 mls/hr IVPB Q24H [facility] Last Admin: 03/23/17 17:33 Dose: 133.333 mls/hr Potassium Chloride (Potassium Chloride 20 Meq/100 Ml) 20 meq in 100 mls @ 50 mls/hr IVPB Q2H [facility] Stop: 03/24/17 15:59 Last Admin: 03/24/17 10:03 Dose: 50 mls/hr Furosemide 100 mg/ Sodium (Chloride) 100 mls @ 5 mls/hr IVP .Q20H [facility] PRN Reason: 5 MG/HR Insulin Aspart (Novolog) 0 unit SC Q6 [facility] PRN Reason: Protocol Last Admin: 03/24/17 05:57 Dose: 5 unit Midazolam HCl (Versed Inj) 2 mg IVP Q4H PRN PRN Reason: Agitation Multivitamins/Vitamin C (Multi-Delyn Liquid) 5 ml GT DAILY [facility] Last Admin: 03/24/17 10:10 Dose: 5 ml Pantoprazole Sodium (Protonix Inj) 40 mg IVP DAILY [facility] Last Admin: 03/23/17 10:05 Dose: 40 mg Physical Exam - Constitutional Appears: In Acute Distress, Chronically Ill - Head Exam Head Exam: ATRAUMATIC, NORMAL INSPECTION, NORMOCEPHALIC - Eye Exam Eye Exam: Normal appearance - ENT Exam ENT Exam: Mucous Membranes Dry Additional comments: ETT in place - Neck Exam Neck exam: Positive for: Normal Inspection - Respiratory Exam Additional comments: Intubated on MV support - Cardiovascular Exam Cardiovascular Exam: REGULAR RHYTHM - GI/Abdominal Exam GI & Abdominal Exam: Diminished Bowel Sounds - Rectal Exam Rectal Exam: Deferred - Exam Exam: NORMAL INSPECTION - Extremities Exam Extremities exam: Positive for: normal inspection - Back Exam Back exam: NORMAL INSPECTION - Neurological Exam Neurological exam: Altered - Psychiatric Exam Psychiatric exam: Flat Affect - Skin Skin Exam: Pallor Results - Vital Signs Recent Vital Signs: Last Vital Signs Temp 98.7 F 03/24/17 12:00 Pulse 76 03/24/17 12:00 Resp 18 03/24/17 12:00 BP 107/60 03/24/17 12:00 Pulse Ox 100 03/24/17 12:00 - Labs Result Diagrams: 03/24/17 06:44 03/24/17 06:44 Labs: Laboratory Results - last 24 hr 03/23/17 03/23/17 03/23/17 10:42 12:40 17:39 WBC RBC Hgb Hct MCV MCH MCHC RDW Plt Count MPV Neut % (Auto) Lymph % (Auto) Rich % (Auto) Eos % (Auto) Baso % (Auto) Neut # Lymph # Rich # Eos # Baso # Neutrophils % (Manual) Band Neutrophils % Lymphocytes % (Manual) Monocytes % (Manual) Platelet Estimate Anisocytosis (manual) Puncture Site pCO2 pO2 HCO3 ABG pH ABG Total CO2 ABG O2 Saturation ABG Base Excess Heriberto Test ABG Potassium A-a O2 Difference Respiratory Index Sodium Chloride Glucose Lactate Vent Mode Mechanical Rate FiO2 Tidal Volume PEEP Potassium Carbon Dioxide Anion Gap BUN Creatinine Est GFR ( Amer) Est GFR (Non-Af Amer) POC Glucose (mg/dL) > 500 H* 371 H Random Glucose Calcium Phosphorus Magnesium Total Bilirubin AST ALT Alkaline Phosphatase Total Protein Albumin Globulin Albumin/Globulin Ratio Arterial Blood Potassium Blood Type A POSITIVE Antibody Screen Negative 03/23/17 03/24/17 03/24/17 23:48 05:16 05:26 WBC RBC Hgb Hct MCV MCH MCHC RDW Plt Count MPV Neut % (Auto) Lymph % (Auto) Rich % (Auto) Eos % (Auto) Baso % (Auto) Neut # Lymph # Rich # Eos # Baso # Neutrophils % (Manual) Band Neutrophils % Lymphocytes % (Manual) Monocytes % (Manual) Platelet Estimate Anisocytosis (manual) Puncture Site Rr pCO2 28 L pO2 158 H HCO3 26.3 ABG pH 7.53 H ABG Total CO2 24.3 ABG O2 Saturation 99.8 H ABG Base Excess 1.7 Heriberto Test Pos ABG Potassium 2.8 L A-a O2 Difference 164.0 Respiratory Index 1.0 Sodium 159.0 H Chloride 129.0 H Glucose 318 H Lactate 1.2 Vent Mode Prvc Mechanical Rate 14 FiO2 50.0 Tidal Volume 450 PEEP 5 Potassium Carbon Dioxide Anion Gap BUN Creatinine Est GFR ( Amer) Est GFR (Non-Af Amer) POC Glucose (mg/dL) 327 H 368 H Random Glucose Calcium Phosphorus Magnesium Total Bilirubin AST ALT Alkaline Phosphatase Total Protein Albumin Globulin Albumin/Globulin Ratio Arterial Blood Potassium 2.8 L Blood Type Antibody Screen 03/24/17 03/24/17 03/24/17 06:44 06:44 11:40 WBC 16.5 H RBC 3.05 L Hgb 9.4 L D Hct 28.9 L MCV 94.8 H D MCH 30.8 MCHC 32.5 L RDW 18.7 H Plt Count 92 L MPV 14.5 H Neut % (Auto) 92.1 H Lymph % (Auto) 5.0 L Rich % (Auto) 2.9 Eos % (Auto) 0.0 Baso % (Auto) 0.0 Neut # 15.2 H Lymph # 0.8 L Rich # 0.5 Eos # 0.0 Baso # 0.0 Neutrophils % (Manual) 86 H Band Neutrophils % 7 H Lymphocytes % (Manual) 6 L Monocytes % (Manual) 1 Platelet Estimate Decreased L Anisocytosis (manual) Slight Puncture Site pCO2 pO2 HCO3 ABG pH ABG Total CO2 ABG O2 Saturation ABG Base Excess Heriberto Test ABG Potassium A-a O2 Difference Respiratory Index Sodium 154 H Chloride 125 H Glucose Lactate Vent Mode Mechanical Rate FiO2 Tidal Volume PEEP Potassium 2.9 L Carbon Dioxide 25 Anion Gap 7 L BUN 95 H Creatinine 1.9 H Est GFR ( Amer) 41 Est GFR (Non-Af Amer) 34 POC Glucose (mg/dL) 267 H Random Glucose 287 H Calcium 6.4 L Phosphorus 2.8 Magnesium 2.5 H Total Bilirubin 0.9 AST 66 H ALT 36 Alkaline Phosphatase 175 H Total Protein 7.0 Albumin 2.6 L Globulin 4.4 H Albumin/Globulin Ratio 0.6 L Arterial Blood Potassium Blood Type Antibody Screen Assessment & Plan - Assessment and Plan (Free Text) Assessment: Palliative consult No advance directive on chart, PPS 10% I reviewed medical record, all diagnostic studies, examind patient in the bed. Patient is intubated on no scheduled sedation, with eyes open, no reactive to voice or tactile stimuly. Versed PRN is on board. FiO2 50%. [id number]%. Abdomend distended, hypoactive bowel sounds. Minimal pedal edema. BP 119/56, HR 78. Levophed IV on. Goals of care discussed with patient's niece Leonor [phone]. Leonor is the closest relative and has been taking care of patient for 6 years. She stated that 3 months ago patient begun falling a lot, and was admitted to the [facility] for terminologist care. Since admission to a [facility], patient began declining rapidly , got aspiration pneumonia, was not able to swallow the food and got PEG. Before all of these, Leonor said patient was pretty healthy at home, verbal and able to ambulate with minimal assistance. I reviewed with her patient's current condition and the care given to him. Further I elicited Leonor's expectations given patient's medical Hx and current situation. She cried saying that she regretted placing patient at [facility] but she was concerned with his safety and also busy with babysitting her grandchild. I reassured her of appropriate care provided at present and offered to meet with her for further goals of care discussion. She agreed. Code status discussed. [place] has no knowledge of any Advance Directive made in the past by the patient. I offered information on the POLST. Impression * This is acutely ill man whose condition has declined over the last 3 months as per his niece statement * Patient is unable to advocate for himself and his wishes for the end of life care are not known * Patient's niece is dealing with feelings of guilt for placing patient at the [facility] Suggestion * Continue use of all measures to support life * Family meeting to fallow for further Code status discussion and support to a family member. Thank you for consulting Palliative care
--- NOTE | 2017-03-24 12:30 | CP.PCM.PN ---
Subjective - Date & Time of Evaluation Date of Evaluation: 03/24/17 Time of Evaluation: 09:00 - Subjective Subjective: vented nad Objective - Vital Signs/Intake and Output Vital Signs (last 24 hours): Temp Pulse Resp BP Pulse Ox 98.7 F 76 18 110/76 100 03/24/17 12:00 03/24/17 12:00 03/24/17 12:00 03/24/17 12:15 03/24/17 12:00 Intake and Output: 03/24/17 03/24/17 06:59 18:59 Intake Total 1995.6 633.0 Output Total 600 Balance 1395.6 633.0 - Medications Medications: Current Medications Albuterol/Ipratropium (Duoneb 3 Mg/0.5 Mg (3 Ml) Ud) 3 ml INH RQ6 [facility] Last Admin: 03/24/17 07:45 Dose: 3 ml Artificial Tears (Artificial Tears) 0 ml OD Q2H [facility] Last Admin: 03/24/17 10:39 Dose: 1 drop Carbidopa/Levodopa (Sinemet /) 1 tab PO QID [facility] Last Admin: 03/24/17 10:10 Dose: 1 tab Heparin Sodium (Porcine) (Heparin) 5,000 units SC Q12H [facility] Last Admin: 03/24/17 10:07 Dose: 5,000 units Hydrocortisone Sodium Succinate (Solu-Cortef) 50 mg IV Q8H [facility] Last Admin: 03/24/17 10:17 Dose: 50 mg Piperacillin Sod/Tazobactam Sod (Zosyn 2.25 Gm Iv Premix) 2.25 gm in 50 mls @ 100 mls/hr IVPB Q8H [facility] Last Admin: 03/24/17 05:01 Dose: 100 mls/hr Norepinephrine Bitartrate 8 mg (/ Sodium Chloride) 258 mls @ 7.74 mls/hr IV .Q24H PRN; Protocol; 4 MCG/MIN PRN Reason: TITRATE PER MD ORDER Last Titration: 03/24/17 12:16 Dose: 1 mcg/min, 1.93 mls/hr Sodium Bicarbonate 75 meq/ (Sodium Chloride) 1,075 mls @ 75 mls/hr IV .[id number] [facility] Last Admin: 03/24/17 06:45 Dose: 75 mls/hr Vancomycin HCl 1 gm/ Sodium (Chloride) 200 mls @ 133.333 mls/hr IVPB Q24H [facility] Last Admin: 03/23/17 17:33 Dose: 133.333 mls/hr Potassium Chloride (Potassium Chloride 20 Meq/100 Ml) 20 meq in 100 mls @ 50 mls/hr IVPB Q2H [facility] Stop: 03/24/17 15:59 Last Admin: 03/24/17 12:19 Dose: 50 mls/hr Furosemide 100 mg/ Sodium (Chloride) 100 mls @ 5 mls/hr IVP .Q20H [facility] PRN Reason: 5 MG/HR Last Admin: 03/24/17 12:15 Dose: 5 mls/hr Insulin Aspart (Novolog) 0 unit SC Q6 [facility] PRN Reason: Protocol Last Admin: 03/24/17 12:17 Dose: 3 unit Midazolam HCl (Versed Inj) 2 mg IVP Q4H PRN PRN Reason: Agitation Multivitamins/Vitamin C (Multi-Delyn Liquid) 5 ml GT DAILY [facility] Last Admin: 03/24/17 10:10 Dose: 5 ml Pantoprazole Sodium (Protonix Inj) 40 mg IVP DAILY [facility] Last Admin: 03/23/17 10:05 Dose: 40 mg - Labs Labs: 03/24/17 06:44 03/24/17 06:44 PT 14.1 SECONDS (9.7-12.2) H 03/21/17 19:13 INR 1.3 03/21/17 19:13 APTT 33 SECONDS (21-34) 03/21/17 19:13 - Constitutional Appears: Cachectic, Chronically Ill - Head Exam Head Exam: NORMOCEPHALIC - Eye Exam Eye Exam: PERRL - ENT Exam ENT Exam: Mucous Membranes Dry - Neck Exam Neck Exam: absent: Lymphadenopathy - Respiratory Exam Respiratory Exam: Decreased Breath Sounds - Cardiovascular Exam Cardiovascular Exam: REGULAR RHYTHM, +S1 - GI/Abdominal Exam GI & Abdominal Exam: Distended Assessment and Plan (1) CLEMENT (acute kidney injury) Status: Acute (2) Anemia Status: Acute (3) Respiratory failure with hypoxia and hypercapnia Status: Acute (4) Septic shock Status: Acute (5) Altered mental status Status: Acute (6) CHF (congestive heart failure) Status: Chronic (7) Diabetes mellitus Status: Chronic (8) Hyperlipidemia Status: Chronic (9) Hypertension Status: Chronic
[2017-03-24] MEDS: Vancomycin 1 GM in Sodium Chloride 0.9% 200 ML IVPB SCH (17:15)
--- NOTE | 2017-03-24 18:08 | CP.PCM.CON ---
History of Present Illness - History of Present Illness History of Present Illness: Patient is a 87 year old male with PMHx of Parkinson's disease, Alzeimer's disease, HTN, DM, anemia, CHF, thrombocytopenia, hematuria, PEG who was admitted on 03/21/17 for acute respiratory failure and septic shock. Patient was en route to [facility] from care home for shortness of breath, but was rerouted to [facility] due to rapid deterioration and was intubated in the field by EMS due to respiratory failure. Unable to obtain further history as pt is non- verbal. PMHx: Parkinson's disease, Alzeimer's disease, HTN, DM, anemia, CHF, thrombocytopenia, hematuria, PEG PSHx: R ankle surgery, bilateral eye surgery Meds: Ergocalciferol 50,000 units 1 cap PO Q7D, Aspirin 81 mg PO daily, Crestor 10mg PO QHS, Lisinopril 5mg PO daily, Glimepiride 4mg PO BID, Folic acid 1mg PO daily, Famotidine 20mg PO BID Allergies: NKDA Social: until 3 months ago lived with niece, Leonor ([phone]). Now resides at [facility]. Never smoked Family Hx: no significant family history ROS: unobtainable as patient is non-verbal. Vitals: Temp: 98.7 F axillary, BP: 94/56, Pulse: 84, SpO2: 100, RR: 20 Exam: General: Pt with eyes open, non responsive to verbal or tactile stimuli, not following commands Head: atraumatic, Normocephalic Eyes: unable to evaluate, Pt uncooperative ENT: endotrachial tube in place Cardio: RRR, normal S1, S2, no murmurs, rubs or gallops Respiratory: clear to auscultation, no wheezes rhonchi, or rales Abdomen: non-tender to palpation Extremities: Ecchymoses noted to bilateral upper extremities, SCDs and heel protector boots bilateral lower extremities A/P: Respiratory failure with hypoxia and hypercapnia Septic Shock Pt is intubated with vent setting of CPAP, RR:21 , FiO2: 50%, TVi: 426, VTe: 454 , MVe: 8.3, PEEP: 5 Continue Duonebs Continue IV antibiotics as per ID Sputum Culture: MRSA and Proteus mirabilis detected 1/08 ABG: pCO2 28, pO2 158, HCO3 26.3, pH 7.53 03/24 CXR: Moderate venous congestion, trace left pleural effusion 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 area as per niece - MUSCULOSKELETAL/RHEUMATOLOGICAL Hx Falls: Yes - GASTROINTESTINAL Hx Gastrointestinal Disorders: No - GENITOURINARY/GYNECOLOGICAL Hx Genitourinary Disorders: No - PSYCHIATRIC Hx Psychophysiologic Disorder: No Hx Substance Use: No - SURGICAL HISTORY Hx Surgeries: Yes (right ankle surgery, bilateral eye surgeries) - ANESTHESIA Hx Anesthesia: Yes Hx Anesthesia Reactions: No Meds Allergies/Adverse Reactions: Allergies Allergy/AdvReac Type Severity Reaction Status Date / Time No Known Allergies Allergy Verified 12/16/16 11:22 - Medications Medications: Current Medications Albuterol/Ipratropium (Duoneb 3 Mg/0.5 Mg (3 Ml) Ud) 3 ml INH RQ6 [facility] Last Admin: 03/24/17 14:00 Dose: 3 ml Artificial Tears (Artificial Tears) 0 ml OD Q2H [facility] Last Admin: 03/24/17 15:56 Dose: 1 drop Carbidopa/Levodopa (Sinemet 10/100) 1 tab PO QID [facility] Last Admin: 03/24/17 17:19 Dose: 1 tab Heparin Sodium (Porcine) (Heparin) 5,000 units SC Q12H [facility] Last Admin: 03/24/17 10:07 Dose: 5,000 units Hydrocortisone Sodium Succinate (Solu-Cortef) 50 mg IV Q8H [facility] Last Admin: 03/24/17 16:46 Dose: 50 mg Piperacillin Sod/Tazobactam Sod (Zosyn 2.25 Gm Iv Premix) 2.25 gm in 50 mls @ 100 mls/hr IVPB Q8H [facility] Last Admin: 03/24/17 13:43 Dose: 100 mls/hr Norepinephrine Bitartrate 8 mg (/ Sodium Chloride) 258 mls @ 7.74 mls/hr IV .Q24H PRN; Protocol; 4 MCG/MIN PRN Reason: TITRATE PER MD ORDER Last Titration: 03/24/17 12:16 Dose: 1 mcg/min, 1.93 mls/hr Sodium Bicarbonate 75 meq/ (Sodium Chloride) 1,075 mls @ 75 mls/hr IV .[id number] [facility] Last Admin: 03/24/17 17:16 Dose: 75 mls/hr Vancomycin HCl 1 gm/ Sodium (Chloride) 200 mls @ 133.333 mls/hr IVPB Q24H [facility] Last Admin: 03/24/17 17:15 Dose: 133.333 mls/hr Furosemide 100 mg/ Sodium (Chloride) 100 mls @ 5 mls/hr IVP .Q20H [facility] PRN Reason: 5 MG/HR Last Admin: 03/24/17 12:15 Dose: 5 mls/hr Insulin Aspart (Novolog) 0 unit SC Q6 [facility] PRN Reason: Protocol Last Admin: 03/24/17 17:22 Dose: 3 unit Midazolam HCl (Versed Inj) 2 mg IVP Q4H PRN PRN Reason: Agitation Multivitamins/Vitamin C (Multi-Delyn Liquid) 5 ml GT DAILY [facility] Last Admin: 03/24/17 10:10 Dose: 5 ml Pantoprazole Sodium (Protonix Inj) 40 mg IVP DAILY [facility] Last Admin: 03/24/17 10:00 Dose: 40 mg Results - Vital Signs Recent Vital Signs: Last Vital Signs Temp 97.2 F L 03/24/17 16:00 Pulse 86 03/24/17 18:00 Resp 19 03/24/17 18:00 BP 110/65 03/24/17 18:00 Pulse Ox 100 03/24/17 18:00 - Labs Result Diagrams: 03/25/17 06:12 03/25/17 06:12 Labs: Laboratory Results - last 24 hr 03/23/17 03/23/17 03/23/17 12:40 17:39 23:48 WBC RBC Hgb Hct MCV MCH MCHC RDW Plt Count MPV Neut % (Auto) Lymph % (Auto) [place] % (Auto) Eos % (Auto) Baso % (Auto) Neut # Lymph # [place] # Eos # Baso # Neutrophils % (Manual) Band Neutrophils % Lymphocytes % (Manual) Monocytes % (Manual) Platelet Estimate Anisocytosis (manual) Puncture Site pCO2 pO2 HCO3 ABG pH ABG Total CO2 ABG O2 Saturation ABG Base Excess Heriberto Test ABG Potassium A-a O2 Difference Respiratory Index Sodium Chloride Glucose Lactate Vent Mode Mechanical Rate FiO2 Tidal Volume PEEP Potassium Carbon Dioxide Anion Gap BUN Creatinine Est GFR ( Amer) Est GFR (Non-Af Amer) POC Glucose (mg/dL) > 500 H* 371 H 327 H Random Glucose Calcium Phosphorus Magnesium Total Bilirubin AST ALT Alkaline Phosphatase Total Protein Albumin Globulin Albumin/Globulin Ratio Arterial Blood Potassium 03/24/17 03/24/17 03/24/17 05:16 05:26 06:44 WBC 16.5 H RBC 3.05 L Hgb 9.4 L D Hct 28.9 L MCV 94.8 H D MCH 30.8 MCHC 32.5 L RDW 18.7 H Plt Count 92 L MPV 14.5 H Neut % (Auto) 92.1 H Lymph % (Auto) 5.0 L [place] % (Auto) 2.9 Eos % (Auto) 0.0 Baso % (Auto) 0.0 Neut # 15.2 H Lymph # 0.8 L [place] # 0.5 Eos # 0.0 Baso # 0.0 Neutrophils % (Manual) 86 H Band Neutrophils % 7 H Lymphocytes % (Manual) 6 L Monocytes % (Manual) 1 Platelet Estimate Decreased L Anisocytosis (manual) Slight Puncture Site Rr pCO2 28 L pO2 158 H HCO3 26.3 ABG pH 7.53 H ABG Total CO2 24.3 ABG O2 Saturation 99.8 H ABG Base Excess 1.7 Heirberto Test Pos ABG Potassium 2.8 L A-a O2 Difference 164.0 Respiratory Index 1.0 Sodium 159.0 H Chloride 129.0 H Glucose 318 H Lactate 1.2 Vent Mode Prvc Mechanical Rate 14 FiO2 50.0 Tidal Volume 450 PEEP 5 Potassium Carbon Dioxide Anion Gap BUN Creatinine Est GFR ( Amer) Est GFR (Non-Af Amer) POC Glucose (mg/dL) 368 H Random Glucose Calcium Phosphorus Magnesium Total Bilirubin AST ALT Alkaline Phosphatase Total Protein Albumin Globulin Albumin/Globulin Ratio Arterial Blood Potassium 2.8 L 03/24/17 03/24/1703/24/18 06:44 11:40 16:44 WBC RBC Hgb Hct MCV MCH MCHC RDW Plt Count MPV Neut % (Auto) Lymph % (Auto) [place] % (Auto) Eos % (Auto) Baso % (Auto) Neut # Lymph # [place] # Eos # Baso # Neutrophils % (Manual) Band Neutrophils % Lymphocytes % (Manual) Monocytes % (Manual) Platelet Estimate Anisocytosis (manual) Puncture Site pCO2 pO2 HCO3 ABG pH ABG Total CO2 ABG O2 Saturation ABG Base Excess Heriberto Test ABG Potassium A-a O2 Difference Respiratory Index Sodium 154 H 150 H Chloride 125 H 122 H Glucose Lactate Vent Mode Mechanical Rate FiO2 Tidal Volume PEEP Potassium 2.9 L 3.7 Carbon Dioxide 25 24 Anion Gap 7 L 7 L BUN 95 H 92 H Creatinine 1.9 H 1.8 H Est GFR ( Amer) 41 44 Est GFR (Non-Af Amer) 34 36 POC Glucose (mg/dL) 267 H Random Glucose 287 H 274 H Calcium 6.4 L 6.0 L* Phosphorus 2.8 Magnesium 2.5 H Total Bilirubin 0.9 AST 66 H ALT 36 Alkaline Phosphatase 175 H Total Protein 7.0 Albumin 2.6 L Globulin 4.4 H Albumin/Globulin Ratio 0.6 L Arterial Blood Potassium 03/24/17 17:21 WBC RBC Hgb Hct MCV MCH MCHC RDW Plt Count MPV Neut % (Auto) Lymph % (Auto) [place] % (Auto) Eos % (Auto) Baso % (Auto) Neut # Lymph # [place] # Eos # Baso # Neutrophils % (Manual) Band Neutrophils % Lymphocytes % (Manual) Monocytes % (Manual) Platelet Estimate Anisocytosis (manual) Puncture Site pCO2 pO2 HCO3 ABG pH ABG Total CO2 ABG O2 Saturation ABG Base Excess Heriberto Test ABG Potassium A-a O2 Difference Respiratory Index Sodium Chloride Glucose Lactate Vent Mode Mechanical Rate FiO2 Tidal Volume PEEP Potassium Carbon Dioxide Anion Gap BUN Creatinine Est GFR ( Amer) Est GFR (Non-Af Amer) POC Glucose (mg/dL) 267 H Random Glucose Calcium Phosphorus Magnesium Total Bilirubin AST ALT Alkaline Phosphatase Total Protein Albumin Globulin Albumin/Globulin Ratio Arterial Blood Potassium Assessment & Plan (1) Respiratory failure with hypoxia and hypercapnia Status: Acute Priority: High Onset Date: ~03/21/17 (2) Anemia Status: Acute (3) CLEMENT (acute kidney injury) Status: Acute Priority: High (4) Septic shock Status: Acute
--- NOTE | 2017-03-24 18:58 | CP.PCM.PN ---
Subjective - Date & Time of Evaluation Date of Evaluation: 03/24/17 Time of Evaluation: 14:00 - Subjective Subjective: clinically same Objective - Vital Signs/Intake and Output Vital Signs (last 24 hours): Temp Pulse Resp BP Pulse Ox 97.2 F L 86 19 110/65 100 03/24/17 16:00 03/24/17 18:00 03/24/17 18:00 03/24/17 18:00 03/24/17 18:00 Intake and Output: 03/24/17 03/24/17 06:59 18:59 Intake Total 1995.6 1122.4 Output Total 600 430 Balance 1395.6 692.4 - Medications Medications: Current Medications Albuterol/Ipratropium (Duoneb 3 Mg/0.5 Mg (3 Ml) Ud) 3 ml INH RQ6 [facility] Last Admin: 03/24/17 14:00 Dose: 3 ml Artificial Tears (Artificial Tears) 0 ml OD Q2H [facility] Last Admin: 03/24/17 15:56 Dose: 1 drop Carbidopa/Levodopa (Sinemet 10/100) 1 tab PO QID [facility] Last Admin: 03/24/17 17:19 Dose: 1 tab Heparin Sodium (Porcine) (Heparin) 5,000 units SC Q12H [facility] Last Admin: 03/24/17 10:07 Dose: 5,000 units Hydrocortisone Sodium Succinate (Solu-Cortef) 50 mg IV Q8H [facility] Last Admin: 03/24/17 16:46 Dose: 50 mg Piperacillin Sod/Tazobactam Sod (Zosyn 2.25 Gm Iv Premix) 2.25 gm in 50 mls @ 100 mls/hr IVPB Q8H [facility] Last Admin: 03/24/17 13:43 Dose: 100 mls/hr Norepinephrine Bitartrate 8 mg (/ Sodium Chloride) 258 mls @ 7.74 mls/hr IV .Q24H PRN; Protocol; 4 MCG/MIN PRN Reason: TITRATE PER MD ORDER Last Titration: 03/24/17 12:16 Dose: 1 mcg/min, 1.93 mls/hr Sodium Bicarbonate 75 meq/ (Sodium Chloride) 1,075 mls @ 75 mls/hr IV .[id number] [facility] Last Admin: 03/24/17 17:16 Dose: 75 mls/hr Vancomycin HCl 1 gm/ Sodium (Chloride) 200 mls @ 133.333 mls/hr IVPB Q24H [facility] Last Admin: 03/24/17 17:15 Dose: 133.333 mls/hr Furosemide 100 mg/ Sodium (Chloride) 100 mls @ 5 mls/hr IVP .Q20H [facility] PRN Reason: 5 MG/HR Last Admin: 03/24/17 12:15 Dose: 5 mls/hr Insulin Aspart (Novolog) 0 unit SC Q6 [facility] PRN Reason: Protocol Last Admin: 03/24/17 17:22 Dose: 3 unit Midazolam HCl (Versed Inj) 2 mg IVP Q4H PRN PRN Reason: Agitation Multivitamins/Vitamin C (Multi-Delyn Liquid) 5 ml GT DAILY [facility] Last Admin: 03/24/17 10:10 Dose: 5 ml Pantoprazole Sodium (Protonix Inj) 40 mg IVP DAILY [facility] Last Admin: 03/24/17 10:00 Dose: 40 mg - Labs Labs: 03/24/17 06:44 03/24/17 16:44 PT 14.1 SECONDS (9.7-12.2) H 03/21/17 19:13 INR 1.3 03/21/17 19:13 APTT 33 SECONDS (21-34) 03/21/17 19:13
[2017-03-25] MEDS: Aritificial Tears (15ml) OD SCH ×12 (00:36→22:18)
[2017-03-25] MEDS: Albuterol-Ipratrop 3 mg / 0.5 (3 ml) UD INH SCH ×4 (01:08→20:12)
[2017-03-25] MEDS: (Novolog) Insulin Aspart, Recombinant 100 u/ml 10 ml vial SC SCH ×4 (02:02→17:58)
[2017-03-25] MEDS: Piperacill/Tazo 2.25gm in Dex 2.25 GM/50 ML BAG IVPB SCH ×3 (04:46→21:17)
[2017-03-25] MEDS: Furosemide 100 MG in Sodium Chloride 0.9% 90 ML IVP SCH (05:42)
[2017-03-25 05:53] LABS: ARTERIAL BLOOD GAS HEMOGLOBIN 9.5 g/dL (11.7-17.4); ARTERIAL BLOOD GAS O2 SAT 99.5 % (95-98); ARTERIAL BLOOD GAS PCO2 30 mm/Hg (35-45); ARTERIAL BLOOD GAS PH 7.53 (7.35-7.45); ARTERIAL BLOOD GAS PO2 116 mm/Hg (80-100)
[2017-03-25 06:23] LABS: BASO % 0.1 % (0.0-2.0); HEMOGLOBIN 9.6 g/dL (12.0-18.0); LYMPH # 0.7 K/uL (1.0-4.3); LYMPH % 5.3 % (20.0-40.0); MEAN CELL VOLUME 94.6 fL (80.0-94.0); MEAN CORPUSCULAR HEMOGLOBIN 30.7 pg (27.0-31.0); MEAN CORPUSCULAR HGB CONC 32.5 g/dL (33.0-37.0); MEAN PLATELET VOLUME 14.3 fL (7.2-11.7); MONO # 0.6 K/uL (0.0-0.8); MONO % 4.6 % (0.0-10.0); NEUT # 11.3 K/uL (1.8-7.0); NRBC % 0.1 % (0.0-2.0); PLATELET COUNT 84 K/uL (130-400); RBC 3.11 Mil/uL (4.40-5.90); RED CELL DISTRIBUTION WIDTH 18.5 % (11.5-14.5); WHITE BLOOD COUNT 12.6 K/uL (4.8-10.8)
[2017-03-25 06:46] LABS: ALB/GLOB RATIO 0.6 (1.0-2.1); ALBUMIN 2.5 g/dL (3.5-5.0); CALCIUM 6.2 mg/dl (8.6-10.4); MAGNESIUM 2.3 mg/dL (1.6-2.3)
[2017-03-25 08:22] LABS: LYMPHOCYTE 4 % (20-40); MONOCYTE 2 % (0-10); NEUTROPHIL 94 % (50-75); TOTAL CELLS COUNTED 100
[2017-03-25 08:23] LABS: ANISOCYTOSIS SLIGHT; HYPOCHROMIC SLIGHT; PLATELET ESTIMATE DECREASED (NORMAL)
--- NOTE | 2017-03-25 08:40 | CP.PCM.PN ---
Subjective - Date & Time of Evaluation Date of Evaluation: 03/25/17 Time of Evaluation: 12:00 - Subjective Subjective: clinically same Objective - Vital Signs/Intake and Output Vital Signs (last 24 hours): Temp Pulse Resp BP Pulse Ox 97.5 F L 92 H 23 95/60 L 100 03/25/17 04:00 03/25/17 07:24 03/25/17 07:24 03/25/17 07:24 03/25/17 07:24 Intake and Output: 03/25/17 03/25/17 06:59 18:59 Intake Total 2330.0 80 Output Total 925 Balance 1405.0 80 - Medications Medications: Current Medications Albuterol/Ipratropium (Duoneb 3 Mg/0.5 Mg (3 Ml) Ud) 3 ml INH RQ6 [facility] Last Admin: 03/25/17 08:15 Dose: 3 ml Artificial Tears (Artificial Tears) 0 ml OD Q2H [facility] Last Admin: 03/25/17 06:37 Dose: 1 drop Carbidopa/Levodopa (Sinemet 10/100) 1 tab PO QID [facility] Last Admin: 03/24/17 21:15 Dose: 1 tab Heparin Sodium (Porcine) (Heparin) 5,000 units SC Q12H [facility] Last Admin: 03/24/17 21:15 Dose: 5,000 units Hydrocortisone Sodium Succinate (Solu-Cortef) 50 mg IV Q8H [facility] Last Admin: 03/25/17 02:11 Dose: 50 mg Piperacillin Sod/Tazobactam Sod (Zosyn 2.25 Gm Iv Premix) 2.25 gm in 50 mls @ 100 mls/hr IVPB Q8H [facility] Last Admin: 03/25/17 04:46 Dose: 100 mls/hr Norepinephrine Bitartrate 8 mg (/ Sodium Chloride) 258 mls @ 7.74 mls/hr IV .Q24H PRN; Protocol; 4 MCG/MIN PRN Reason: TITRATE PER MD ORDER Last Titration: 03/25/17 00:37 Dose: 0 mcg/min, 0 mls/hr Sodium Bicarbonate 75 meq/ (Sodium Chloride) 1,075 mls @ 75 mls/hr IV .[id number] [facility] Last Admin: 03/25/17 05:41 Dose: Not Given Vancomycin HCl 1 gm/ Sodium (Chloride) 200 mls @ 133.333 mls/hr IVPB Q24H [facility] Last Admin: 03/24/17 17:15 Dose: 133.333 mls/hr Furosemide 100 mg/ Sodium (Chloride) 100 mls @ 5 mls/hr IVP .Q20H [facility] PRN Reason: 5 MG/HR Last Admin: 03/25/17 05:42 Dose: Not Given Potassium Chloride (Potassium Chloride 20 Meq/100 Ml) 20 meq in 100 mls @ 50 mls/hr IVPB Q2H [facility] Stop: 03/25/17 11:59 Insulin Aspart (Novolog) 0 unit SC Q6 [facility] PRN Reason: Protocol Last Admin: 03/25/17 05:39 Dose: 5 unit Midazolam HCl (Versed Inj) 2 mg IVP Q4H PRN PRN Reason: Agitation Multivitamins/Vitamin C (Multi-Delyn Liquid) 5 ml GT DAILY [facility] Last Admin: 03/24/17 10:10 Dose: 5 ml Pantoprazole Sodium (Protonix Inj) 40 mg IVP DAILY [facility] Last Admin: 03/24/17 10:00 Dose: 40 mg - Labs Labs: 03/25/17 06:12 03/25/17 06:12 PT 14.1 SECONDS (9.7-12.2) H 03/21/17 19:13 INR 1.3 03/21/17 19:13 APTT 33 SECONDS (21-34) 03/21/17 19:13
[2017-03-25] MEDS ORDERED: Furosemide 100 MG in Sodium Chloride 0.9% 90 ML IV SCH (09:00)
--- NOTE | 2017-03-25 10:18 | RAD ---
Chest x-ray single frontal view History: Ventilator. Comparison: 03/24/2017 Findings: Endotracheal tube approximately 9 millimeters above the nevni. Other lines and tubes in stable position. Mild to moderate venous congestion with bibasilar airspace opacities and small left pleural effusion. Calcification at the aortic knob. Degenerative changes in the spine and shoulders. Impression No significant interval change.
[2017-03-25] MEDS: Multiple Vitamins Oral Solution GT SCH (11:32)
--- NOTE | 2017-03-25 11:44 | CP.PCM.PN ---
Subjective - Date & Time of Evaluation Date of Evaluation: 03/25/17 Time of Evaluation: 09:00 - Subjective Subjective: cultures noted IV rx in progress Objective - Vital Signs/Intake and Output Vital Signs (last 24 hours): Temp Pulse Resp BP Pulse Ox 98.2 F 83 22 104/57 L 100 03/25/17 08:00 03/25/17 11:00 03/25/17 11:00 03/25/17 10:24 03/25/17 11:00 Intake and Output: 03/25/17 03/25/17 06:59 18:59 Intake Total 2330.0 655 Output Total 925 425 Balance 1405.0 230 - Medications Medications: Current Medications Albuterol/Ipratropium (Duoneb 3 Mg/0.5 Mg (3 Ml) Ud) 3 ml INH RQ6 [facility] Last Admin: 03/25/17 08:15 Dose: 3 ml Artificial Tears (Artificial Tears) 0 ml OD Q2H [facility] Last Admin: 03/25/17 10:48 Dose: 1 drop Carbidopa/Levodopa (Sinemet 10/100) 1 tab PO QID [facility] Last Admin: 03/25/17 09:27 Dose: 1 tab Piperacillin Sod/Tazobactam Sod (Zosyn 2.25 Gm Iv Premix) 2.25 gm in 50 mls @ 100 mls/hr IVPB Q8H [facility] Last Admin: 03/25/17 04:46 Dose: 100 mls/hr Norepinephrine Bitartrate 8 mg (/ Sodium Chloride) 258 mls @ 7.74 mls/hr IV .Q24H PRN; Protocol; 4 MCG/MIN PRN Reason: TITRATE PER MD ORDER Last Titration: 03/25/17 00:37 Dose: 0 mcg/min, 0 mls/hr Vancomycin HCl 1 gm/ Sodium (Chloride) 200 mls @ 133.333 mls/hr IVPB Q24H [facility] Last Admin: 03/24/17 17:15 Dose: 133.333 mls/hr Potassium Chloride (Potassium Chloride 20 Meq/100 Ml) 20 meq in 100 mls @ 50 mls/hr IVPB Q2H [facility] Stop: 03/25/17 11:59 Last Admin: 03/25/17 10:49 Dose: 50 mls/hr Insulin Aspart (Novolog) 0 unit SC Q6 [facility] PRN Reason: Protocol Midazolam HCl (Versed Inj) 2 mg IVP Q4H PRN PRN Reason: Agitation Multivitamins/Vitamin C (Multi-Delyn Liquid) 5 ml GT DAILY [facility] Last Admin: 03/25/17 11:32 Dose: 5 ml Pantoprazole Sodium (Protonix Inj) 40 mg IVP DAILY [facility] Last Admin: 03/25/17 11:32 Dose: 40 mg - Labs Labs: 03/25/17 06:12 03/25/17 06:12 PT 14.1 SECONDS (9.7-12.2) H 03/21/17 19:13 INR 1.3 03/21/17 19:13 APTT 33 SECONDS (21-34) 03/21/17 19:13 - Constitutional Appears: Non-toxic, Cachectic, Chronically Ill - Head Exam Head Exam: NORMOCEPHALIC - Eye Exam Eye Exam: absent: Scleral icterus - ENT Exam ENT Exam: Mucous Membranes Dry - Neck Exam Neck Exam: absent: Lymphadenopathy - Respiratory Exam Respiratory Exam: Decreased Breath Sounds - Cardiovascular Exam Cardiovascular Exam: REGULAR RHYTHM - GI/Abdominal Exam GI & Abdominal Exam: Distended - Rectal Exam Rectal Exam: Deferred - Exam Exam: NORMAL INSPECTION Assessment and Plan (1) CLEMENT (acute kidney injury) Status: Acute (2) Anemia Status: Acute (3) Respiratory failure with hypoxia and hypercapnia Status: Acute (4) Septic shock Status: Acute (5) Altered mental status Status: Acute (6) CHF (congestive heart failure) Status: Chronic (7) Diabetes mellitus Status: Chronic (8) Hyperlipidemia Status: Chronic (9) Hypertension Status: Chronic
--- NOTE | 2017-03-25 12:49 | CP.CCUPN ---
<Alexandrea Roberts - Last Filed: 03/25/17 12:45> CCU Subjective - Physician Review Subjective (Free Text): 03/25/17 09:[address] Cleary Patient seen and examined at bedside. GCS 10T ([id number]). Patient opens eyes. blinks, has cough/gag reflex. Patient does not track or follow. Patient is on versed PRN for sedation. CPAP 10 FIO2 50% Critical Care Time Spent (in minutes): 35 CCU Objective - Vital Signs / Intake & Output Vital Signs (Last 4 hours): Vital Signs Temp Pulse Resp BP Pulse Ox 03/25/17 12:24 86 21 116/69 100 03/25/17 12:00 98.4 F 79 23 100 03/25/17 11:24 77 20 88/48 L 100 03/25/17 11:00 83 22 100 03/25/17 10:24 82 22 104/57 L 100 03/25/17 10:00 83 24 100 03/25/17 09:24 92 H 19 100/55 L 100 03/25/17 09:00 94 H 19 100 Intake and Output (Last 8hrs): Intake & Output 03/24/17 03/25/17 03/25/17 22:59 06:59 14:59 Intake Total 735.2 1916.8 685 Output Total 405 675 475 Balance 330.2 1241.8 210 Weight 141 lb Intake: IV 0 5 Intake, IV Amount 695.2 691.8 285 Left External Jugular 50 50 Right Distal Port 40 40 10 Subclavian Right Medial Port 600 600 275 Subclavian Right Proximal Port 5.2 1.8 0 Subclavian Tube Feeding 40 220 150 Other 1000 250 Output: Urine 405 675 475 Urethral (Siu) 405 675 475 Other: # Bowel Movements 1 - Physical Exam Head: Positive for: Atraumatic, Normocephalic Pupils: Positive for: PERRL Conjunctiva: Positive for: Normal Mouth: Positive for: Moist Mucous Membranes Respiratory/Chest: Positive for: Clear to Auscultation, Respiratory Distress Cardiovascular: Positive for: Regular Rate and Rhythm Abdomen: Positive for: Normal Bowel Sounds. Negative for: Tenderness, Distention Upper Extremity: Positive for: Normal Inspection, Capillary Refill < 2s Lower Extremity: Positive for: Capillary Refill < 2 s, Other (sacral decubitus) Skin: Positive for: Dry, Other (sacral decubitus ulcer) Psychiatric: Negative for: Alert, Oriented x 3 - Medications Active Medications: Active Medications Generic Name Dose Route Start Last Admin Trade Name Freq PRN Reason Stop Dose Admin Albuterol/Ipratropium 3 ml 03/22/17 02:00 03/25/17 08:15 Duoneb 3 Mg/0.5 Mg (3 Ml) Ud INH 3 ml RQ6 AUGUST Administration Artificial Tears 0 ml 03/24/17 08:30 03/25/17 12:33 Artificial Tears OD 1 drop Q2H AUGUST Administration Carbidopa/Levodopa 1 tab 03/24/17 10:00 03/25/17 09:27 Sinemet 10/100 PO 1 tab QID AUGUST Administration Piperacillin Sod/Tazobactam Sod 2.25 gm in 50 mls @ 100 mls/hr 03/21/17 21:00 03/25/17 04:46 Zosyn 2.25 Gm Iv Premix IVPB 100 mls/hr Q8H AUGUST Administration Norepinephrine Bitartrate 8 mg 258 mls @ 7.74 mls/hr 03/22/17 08:36 03/25/17 00:37 / Sodium Chloride IV 0 mcg/min .Q24H PRN 0 mls/hr TITRATE PER MD ORDER Titration Protocol 4 MCG/MIN Vancomycin HCl 1 gm/ Sodium 200 mls @ 133.333 mls/hr 03/23/17 18:00 03/24/17 17:15 Chloride IVPB 133.333 mls/hr Q24H AUGUST Administration Insulin Aspart 0 unit 03/25/17 09:12 03/25/17 12:33 Novolog SC 12 unit Q6 AUGUST Administration Protocol Midazolam HCl 2 mg 03/22/17 18:51 Versed Inj IVP Q4H PRN Agitation Multivitamins/Vitamin C 5 ml 03/22/17 10:00 03/25/17 11:32 Multi-Delyn Liquid GT 5 ml DAILY AUGUST Administration Pantoprazole Sodium 40 mg 03/22/17 10:00 03/25/17 11:32 Protonix Inj IVP 40 mg DAILY AUGUST Administration - Patient Studies Lab Studies: Microbiology Studies 03/21/17 19:40 Blood Culture - Preliminary Blood NO GROWTH AFTER 3 DAYS 03/21/17 19:10 Blood Culture - Preliminary Blood NO GROWTH AFTER 3 DAYS 03/21/17 20:31 Gram Stain - Final Trachasp Sputum Culture - Final Methicillin Resistant S Aureus Proteus Mirabilis Lab Studies 03/25/17 03/25/17 03/25/17 Range/Units 12:01 06:12 06:12 WBC 12.6 H (4.8-10.8) K/uL RBC 3.11 L (4.40-5.90) Mil/uL Hgb 9.6 L (12.0-18.0) g/dL Hct 29.5 L (35.0-51.0) % MCV 94.6 H (80.0-94.0) fL MCH 30.7 (27.0-31.0) pg MCHC 32.5 L (33.0-37.0) g/dL RDW 18.5 H (11.5-14.5) % Plt Count 84 L (130-400) K/uL MPV 14.3 H (7.2-11.7) fL Neut % (Auto) 90.0 H (50.0-75.0) % Lymph % (Auto) 5.3 L (20.0-40.0) % [place] % (Auto) 4.6 (0.0-10.0) % Eos % (Auto) 0.0 (0.0-4.0) % Baso % (Auto) 0.1 (0.0-2.0) % Neut # 11.3 H (1.8-7.0) K/uL Lymph # 0.7 L (1.0-4.3) K/uL [place] # 0.6 (0.0-0.8) K/uL Eos # 0.0 (0.0-0.7) K/uL Baso # 0.0 (0.0-0.2) K/uL Neutrophils % (Manual) 94 H (50-75) % Lymphocytes % (Manual) 4 L (20-40) % Monocytes % (Manual) 2 (0-10) % Platelet Estimate Decreased L (NORMAL) Hypochromasia (manual) Slight Anisocytosis (manual) Slight Puncture Site pCO2 (35-45) mm/Hg pO2 (80-100) mm/Hg HCO3 (21-28) mmol/L ABG pH (7.35-7.45) ABG Total CO2 (22-28) mmol/L ABG O2 Saturation (95-98) % ABG Base Excess (-2.0-3.0) mmol/L ABG Hemoglobin (11.7-17.4) g/dL ABG Carboxyhemoglobin (0.5-1.5) % POC ABG HHb (Measured) (0.0-5.0) % ABG Methemoglobin (0.0-3.0) % Heriberto Test A-a O2 Difference mm/Hg Respiratory Index Hgb O2 Saturation (95.0-98.0) % Vent Mode FiO2 % Pressure Support CPAP Sodium 150 H (132-148) mmol/L Potassium 3.2 L (3.6-5.2) mmol/L Chloride 120 H (98-107) mmol/L Carbon Dioxide 25 (22-30) mmol/L Anion Gap 8 L (10-20) BUN 88 H (9-20) mg/dL Creatinine 1.8 H (0.8-1.5) mg/dL Est GFR ( Amer) 44 Est GFR (Non-Af Amer) 36 POC Glucose (mg/dL) 443 H* (65-110) mg/dL Random Glucose 353 H (75-110) mg/dL Calcium 6.2 L (8.6-10.4) mg/dl Phosphorus 3.5 (2.5-4.5) mg/dL Magnesium 2.3 (1.6-2.3) mg/dL Total Bilirubin 0.8 (0.2-1.3) mg/dL AST 57 (17-59) U/L ALT 18 L D (21-72) U/L Alkaline Phosphatase 176 H (38-126) U/L Total Protein 6.8 (6.3-8.3) g/dL Albumin 2.5 L (3.5-5.0) g/dL Globulin 4.2 H (2.2-3.9) gm/dL Albumin/Globulin Ratio 0.6 L (1.0-2.1) Vancomycin Trough (5.0-10.0) ug/mL 03/25/17 03/25/17 03/25/17 Range/Units 06:12 05:16 05:08 WBC (4.8-10.8) K/uL RBC (4.40-5.90) Mil/uL Hgb (12.0-18.0) g/dL Hct (35.0-51.0) % MCV (80.0-94.0) fL MCH (27.0-31.0) pg MCHC (33.0-37.0) g/dL RDW (11.5-14.5) % Plt Count (130-400) K/uL MPV (7.2-11.7) fL Neut % (Auto) (50.0-75.0) % Lymph % (Auto) (20.0-40.0) % [place] % (Auto) (0.0-10.0) % Eos % (Auto) (0.0-4.0) % Baso % (Auto) (0.0-2.0) % Neut # (1.8-7.0) K/uL Lymph # (1.0-4.3) K/uL [place] # (0.0-0.8) K/uL Eos # (0.0-0.7) K/uL Baso # (0.0-0.2) K/uL Neutrophils % (Manual) (50-75) % Lymphocytes % (Manual) (20-40) % Monocytes % (Manual) (0-10) % Platelet Estimate (NORMAL) Hypochromasia (manual) Anisocytosis (manual) Puncture Site Lb pCO2 30 L (35-45) mm/Hg pO2 116 H (80-100) mm/Hg HCO3 27.0 (21-28) mmol/L ABG pH 7.53 H (7.35-7.45) ABG Total CO2 26.0 (22-28) mmol/L ABG O2 Saturation 99.5 H (95-98) % ABG Base Excess 2.7 (-2.0-3.0) mmol/L ABG Hemoglobin 9.5 L (11.7-17.4) g/dL ABG Carboxyhemoglobin 1.4 (0.5-1.5) % POC ABG HHb (Measured) 0.5 (0.0-5.0) % ABG Methemoglobin 1.1 (0.0-3.0) % Heriberto Test Na A-a O2 Difference 203.0 mm/Hg Respiratory Index 1.8 Hgb O2 Saturation 97.0 (95.0-98.0) % Vent Mode Cpap FiO2 50.0 % Pressure Support 15 CPAP 5 Sodium (132-148) mmol/L Potassium (3.6-5.2) mmol/L Chloride (98-107) mmol/L Carbon Dioxide (22-30) mmol/L Anion Gap (10-20) BUN (9-20) mg/dL Creatinine (0.8-1.5) mg/dL Est GFR ( Amer) Est GFR (Non-Af Amer) POC Glucose (mg/dL) 368 H (65-110) mg/dL Random Glucose (75-110) mg/dL Calcium (8.6-10.4) mg/dl Phosphorus (2.5-4.5) mg/dL Magnesium (1.6-2.3) mg/dL Total Bilirubin (0.2-1.3) mg/dL AST (17-59) U/L ALT (21-72) U/L Alkaline Phosphatase (38-126) U/L Total Protein (6.3-8.3) g/dL Albumin (3.5-5.0) g/dL Globulin (2.2-3.9) gm/dL Albumin/Globulin Ratio (1.0-2.1) Vancomycin Trough 27.2 H (5.0-10.0) ug/mL 03/24/17 03/24/17 03/24/17 Range/Units 23:39 17:21 16:44 WBC (4.8-10.8) K/uL RBC (4.40-5.90) Mil/uL Hgb (12.0-18.0) g/dL Hct (35.0-51.0) % MCV (80.0-94.0) fL MCH (27.0-31.0) pg MCHC (33.0-37.0) g/dL RDW (11.5-14.5) % Plt Count (130-400) K/uL MPV (7.2-11.7) fL Neut % (Auto) (50.0-75.0) % Lymph % (Auto) (20.0-40.0) % [place] % (Auto) (0.0-10.0) % Eos % (Auto) (0.0-4.0) % Baso % (Auto) (0.0-2.0) % Neut # (1.8-7.0) K/uL Lymph # (1.0-4.3) K/uL [place] # (0.0-0.8) K/uL Eos # (0.0-0.7) K/uL Baso # (0.0-0.2) K/uL Neutrophils % (Manual) (50-75) % Lymphocytes % (Manual) (20-40) % Monocytes % (Manual) (0-10) % Platelet Estimate (NORMAL) Hypochromasia (manual) Anisocytosis (manual) Puncture Site pCO2 (35-45) mm/Hg pO2 (80-100) mm/Hg HCO3 (21-28) mmol/L ABG pH (7.35-7.45) ABG Total CO2 (22-28) mmol/L ABG O2 Saturation (95-98) % ABG Base Excess (-2.0-3.0) mmol/L ABG Hemoglobin (11.7-17.4) g/dL ABG Carboxyhemoglobin (0.5-1.5) % POC ABG HHb (Measured) (0.0-5.0) % ABG Methemoglobin (0.0-3.0) % Heriberto Test A-a O2 Difference mm/Hg Respiratory Index Hgb O2 Saturation (95.0-98.0) % Vent Mode FiO2 % Pressure Support CPAP Sodium 150 H (132-148) mmol/L Potassium 3.7 (3.6-5.2) mmol/L Chloride 122 H (98-107) mmol/L Carbon Dioxide 24 (22-30) mmol/L Anion Gap 7 L (10-20) BUN 92 H (9-20) mg/dL Creatinine 1.8 H (0.8-1.5) mg/dL Est GFR ( Amer) 44 Est GFR (Non-Af Amer) 36 POC Glucose (mg/dL) 271 H 267 H (65-110) mg/dL Random Glucose 274 H (75-110) mg/dL Calcium 6.0 L* (8.6-10.4) mg/dl Phosphorus (2.5-4.5) mg/dL Magnesium (1.6-2.3) mg/dL Total Bilirubin (0.2-1.3) mg/dL AST (17-59) U/L ALT (21-72) U/L Alkaline Phosphatase (38-126) U/L Total Protein (6.3-8.3) g/dL Albumin (3.5-5.0) g/dL Globulin (2.2-3.9) gm/dL Albumin/Globulin Ratio (1.0-2.1) Vancomycin Trough (5.0-10.0) ug/mL Laboratory Results - last 24 hr 03/24/17 03/24/17 03/24/17 16:44 17:21 23:39 WBC RBC Hgb Hct MCV MCH MCHC RDW Plt Count MPV Neut % (Auto) Lymph % (Auto) [place] % (Auto) Eos % (Auto) Baso % (Auto) Neut # Lymph # [place] # Eos # Baso # Neutrophils % (Manual) Lymphocytes % (Manual) Monocytes % (Manual) Platelet Estimate Hypochromasia (manual) Anisocytosis (manual) Puncture Site pCO2 pO2 HCO3 ABG pH ABG Total CO2 ABG O2 Saturation ABG Base Excess ABG Hemoglobin ABG Carboxyhemoglobin POC ABG HHb (Measured) ABG Methemoglobin Heriberto Test A-a O2 Difference Respiratory Index Hgb O2 Saturation Vent Mode FiO2 Pressure Support CPAP Sodium 150 H Potassium 3.7 Chloride 122 H Carbon Dioxide 24 Anion Gap 7 L BUN 92 H Creatinine 1.8 H Est GFR ( Amer) 44 Est GFR (Non-Af Amer) 36 POC Glucose (mg/dL) 267 H 271 H Random Glucose 274 H Calcium 6.0 L* Phosphorus Magnesium Total Bilirubin AST ALT Alkaline Phosphatase Total Protein Albumin Globulin Albumin/Globulin Ratio Vancomycin Trough 03/25/17 03/25/17 03/25/17 05:08 05:16 06:12 WBC RBC Hgb Hct MCV MCH MCHC RDW Plt Count MPV Neut % (Auto) Lymph % (Auto) [place] % (Auto) Eos % (Auto) Baso % (Auto) Neut # Lymph # [place] # Eos # Baso # Neutrophils % (Manual) Lymphocytes % (Manual) Monocytes % (Manual) Platelet Estimate Hypochromasia (manual) Anisocytosis (manual) Puncture Site Lb pCO2 30 L pO2 116 H HCO3 27.0 ABG pH 7.53 H ABG Total CO2 26.0 ABG O2 Saturation 99.5 H ABG Base Excess 2.7 ABG Hemoglobin 9.5 L ABG Carboxyhemoglobin 1.4 POC ABG HHb (Measured) 0.5 ABG Methemoglobin 1.1 Heriberto Test Na A-a O2 Difference 203.0 Respiratory Index 1.8 Hgb O2 Saturation 97.0 Vent Mode Cpap FiO2 50.0 Pressure Support 15 CPAP 5 Sodium Potassium Chloride Carbon Dioxide Anion Gap BUN Creatinine Est GFR ( Amer) Est GFR (Non-Af Amer) POC Glucose (mg/dL) 368 H Random Glucose Calcium Phosphorus Magnesium Total Bilirubin AST ALT Alkaline Phosphatase Total Protein Albumin Globulin Albumin/Globulin Ratio Vancomycin Trough 27.2 H 03/25/17 03/25/17 03/25/17 06:12 06:12 12:01 WBC 12.6 H RBC 3.11 L Hgb 9.6 L Hct 29.5 L MCV 94.6 H MCH 30.7 MCHC 32.5 L RDW 18.5 H Plt Count 84 L MPV 14.3 H Neut % (Auto) 90.0 H Lymph % (Auto) 5.3 L [place] % (Auto) 4.6 Eos % (Auto) 0.0 Baso % (Auto) 0.1 Neut # 11.3 H Lymph # 0.7 L [place] # 0.6 Eos # 0.0 Baso # 0.0 Neutrophils % (Manual) 94 H Lymphocytes % (Manual) 4 L Monocytes % (Manual) 2 Platelet Estimate Decreased L Hypochromasia (manual) Slight Anisocytosis (manual) Slight Puncture Site pCO2 pO2 HCO3 ABG pH ABG Total CO2 ABG O2 Saturation ABG Base Excess ABG Hemoglobin ABG Carboxyhemoglobin POC ABG HHb (Measured) ABG Methemoglobin Heriberto Test A-a O2 Difference Respiratory Index Hgb O2 Saturation Vent Mode FiO2 Pressure Support CPAP Sodium 150 H Potassium 3.2 L Chloride 120 H Carbon Dioxide 25 Anion Gap 8 L BUN 88 H Creatinine 1.8 H Est GFR ( Amer) 44 Est GFR (Non-Af Amer) 36 POC Glucose (mg/dL) 443 H* Random Glucose 353 H Calcium 6.2 L Phosphorus 3.5 Magnesium 2.3 Total Bilirubin 0.8 AST 57 ALT 18 L D Alkaline Phosphatase 176 H Total Protein 6.8 Albumin 2.5 L Globulin 4.2 H Albumin/Globulin Ratio 0.6 L Vancomycin Trough Fingerstick Blood Sugar Results: 443 Assessment/Plan - Assessment and Plan (Free Text) Assessment: 87yo M. PMHx Parkinson's, Alzheimer's, PEG, hypertension, diabetes, anemia, chronic diastolic CHF, thrombocytopenia, Hematuria. Intubated by EMS for respiratory failure. Neuro: GCS: 10T (E3V1M6) Sedation: Versed 2mg IVP Q4H PRN Hx Parkinsons Disease: Carbidopa Levodopa 1 tab PO QID [facility] 03/21 CT Head: No intracranial abnormality Pulm: acute respiratory failure, on vent. possible aspiration pneumonia, duonebs , abx. Images: 03/21 CXR: ET tube in appropriate position. No evidence of new significant infiltrate or consolidation in lungs. G tube extends into abdomen. 03/22 CXR: mild venous congestion 03/22 repeat CXR: interval improvement 03/23 CXR:no interval change 03/25 CXR: no interval change Meds: Albuterol/Ipratropium 3cc INH RQ6H Hydrocortisone Sodium Succinate 50 mg IV Q8H [facility] 03/24 05:16 pH 7.53, pCO2 28, pO2 158, pHCO3 26.3, PRVC RR 14, FiO2 50%, TV 450, PEEP 5 03/25 05:16 pH 7.53, pCO2 30, pO2 116, pHCO3 27, CPAP PS 15, FiO2 50%, TV 450, PEEP 5 Cardio: Hypotension secondary to septic shock Pressors: Patient is on levophed (last administered 03/25/17) Heme/onc: anemia of chronic disease, leukocytosis from sepsis Monitor H/H Endo: T2DM SISS for coverage (High) Accucheck ACHS GI: PEG tube at 30cc/hr Diet: NPO 03/22 CT abdomen/pelvis: NGT in stomach. PEG in stomach in good position. Diffusely fluid-filled mildly prominent small bowel, with no definite transition point. probable enteritis. Retained stool. nonspecific colonic wall thickening 03/22 Gastric Occult Blood Positive Nephro: Acute Renal Failure, improving BUN 88 (128 on admission) Creatinine 1.8 (2.4 on admission) Hypernatremia improving Na 150 (172 on admission) 03/24 Hypokalemia, repleted 03/25 Hypokalemia, repleted I/Os: 3452.06/1354 = 2097.4 hourly urine output 30-125cc/hr siu for strict I/O's during acute illness 03/21 Urine Culture: proteus mirabilis, sensitive to Zosyn Sodium bicarb 75 meq IV 75cc/hr ID: septic shock due to multiple possible sources (decubitus ulcer, aspiration pneumonia) f/u blood cultures 03/21 sputum culture: S aureus, gram negative rods 03/21 Urine Culture: proteus mirabilis, sensitive to Zosyn Vanco 1gm IVPB Q24H 03/25 Vanc Trough: 27.2 Zosyn 2.25gm in 50cc IVPB Q8H Prophylaxis: DVT - Heparin SC 5,000 u SC Q12H SCDS GI - Protonix 40mg IVP QD - Date & Time Date: 03/25/17 Time: 12:46 <Percy Cleary S - Last Filed: 03/25/17 17:26> CCU Objective - Vital Signs / Intake & Output Vital Signs (Last 4 hours): Vital Signs Temp Pulse Resp BP Pulse Ox 03/25/17 17:00 91 H 19 100 03/25/17 16:24 88 20 100/58 L 100 03/25/17 16:00 97.6 F 84 21 100 03/25/17 15:24 87 22 110/66 100 03/25/17 15:00 87 16 100 03/25/17 14:24 81 8 L 103/57 L 100 03/25/17 14:00 76 17 100 Intake and Output (Last 8hrs): Intake & Output 03/25/17 03/25/17 03/25/17 06:59 14:59 22:59 Intake Total 1916.8 1225 310 Output Total 675 600 175 Balance 1241.8 625 135 Weight 141 lb Intake: IV 5 Intake, IV Amount 691.8 285 Left External Jugular 50 Right Distal Port 40 10 Subclavian Right Medial Port 600 275 Subclavian Right Proximal Port 1.8 0 Subclavian Tube Feeding 220 190 60 Other 1000 750 250 Output: Urine 675 600 175 Urethral (Siu) 675 600 175 Other: # Bowel Movements 1 - Medications Active Medications: Active Medications Generic Name Dose Route Start Last Admin Trade Name Freq PRN Reason Stop Dose Admin Albuterol/Ipratropium 3 ml 03/22/17 02:00 03/25/17 13:00 Duoneb 3 Mg/0.5 Mg (3 Ml) Ud INH 3 ml RQ6 AUGUST Administration Artificial Tears 0 ml 03/24/17 08:30 03/25/17 17:18 Artificial Tears OD 1 drop Q2H AUGUST Administration Carbidopa/Levodopa 1 tab 03/24/17 10:00 03/25/17 17:18 Sinemet 10/100 PO 1 tab QID AUGUST Administration Piperacillin Sod/Tazobactam Sod 2.25 gm in 50 mls @ 100 mls/hr 03/21/17 21:00 03/25/17 14:56 Zosyn 2.25 Gm Iv Premix IVPB 100 mls/hr Q8H AUGUST Administration Norepinephrine Bitartrate 8 mg 258 mls @ 7.74 mls/hr 03/22/17 08:36 03/25/17 00:37 / Sodium Chloride IV 0 mcg/min .Q24H PRN 0 mls/hr TITRATE PER MD ORDER Titration Protocol 4 MCG/MIN Vancomycin HCl 1 gm/ Sodium 200 mls @ 133.333 mls/hr 03/23/17 18:00 03/24/17 17:15 Chloride IVPB 133.333 mls/hr Q24H AUGUST Administration Insulin Aspart 0 unit 03/25/17 09:12 03/25/17 12:33 Novolog SC 12 unit Q6 AUGUST Administration Protocol Midazolam HCl 2 mg 03/22/17 18:51 Versed Inj IVP Q4H PRN Agitation Multivitamins/Vitamin C 5 ml 03/22/17 10:00 03/25/17 11:32 Multi-Delyn Liquid GT 5 ml DAILY AUGUST Administration Pantoprazole Sodium 40 mg 03/22/17 10:00 03/25/17 11:32 Protonix Inj IVP 40 mg DAILY AUGUST Administration - Patient Studies Lab Studies: Microbiology Studies 03/21/17 19:40 Blood Culture - Preliminary Blood NO GROWTH AFTER 3 DAYS 03/21/17 19:10 Blood Culture - Preliminary Blood NO GROWTH AFTER 3 DAYS Lab Studies 03/25/17 03/25/17 03/25/17 Range/Units 12:01 06:12 06:12 WBC 12.6 H (4.8-10.8) K/uL RBC 3.11 L (4.40-5.90) Mil/uL Hgb 9.6 L (12.0-18.0) g/dL Hct 29.5 L (35.0-51.0) % MCV 94.6 H (80.0-94.0) fL MCH 30.7 (27.0-31.0) pg MCHC 32.5 L (33.0-37.0) g/dL RDW 18.5 H (11.5-14.5) % Plt Count 84 L (130-400) K/uL MPV 14.3 H (7.2-11.7) fL Neut % (Auto) 90.0 H (50.0-75.0) % Lymph % (Auto) 5.3 L (20.0-40.0) % [place] % (Auto) 4.6 (0.0-10.0) % Eos % (Auto) 0.0 (0.0-4.0) % Baso % (Auto) 0.1 (0.0-2.0) % Neut # 11.3 H (1.8-7.0) K/uL Lymph # 0.7 L (1.0-4.3) K/uL [place] # 0.6 (0.0-0.8) K/uL Eos # 0.0 (0.0-0.7) K/uL Baso # 0.0 (0.0-0.2) K/uL Neutrophils % (Manual) 94 H (50-75) % Lymphocytes % (Manual) 4 L (20-40) % Monocytes % (Manual) 2 (0-10) % Platelet Estimate Decreased L (NORMAL) Hypochromasia (manual) Slight Anisocytosis (manual) Slight Puncture Site pCO2 (35-45) mm/Hg pO2 (80-100) mm/Hg HCO3 (21-28) mmol/L ABG pH (7.35-7.45) ABG Total CO2 (22-28) mmol/L ABG O2 Saturation (95-98) % ABG Base Excess (-2.0-3.0) mmol/L ABG Hemoglobin (11.7-17.4) g/dL ABG Carboxyhemoglobin (0.5-1.5) % POC ABG HHb (Measured) (0.0-5.0) % ABG Methemoglobin (0.0-3.0) % Heriberto Test A-a O2 Difference mm/Hg Respiratory Index Hgb O2 Saturation (95.0-98.0) % Vent Mode FiO2 % Pressure Support CPAP Sodium 150 H (132-148) mmol/L Potassium 3.2 L (3.6-5.2) mmol/L Chloride 120 H (98-107) mmol/L Carbon Dioxide 25 (22-30) mmol/L Anion Gap 8 L (10-20) BUN 88 H (9-20) mg/dL Creatinine 1.8 H (0.8-1.5) mg/dL Est GFR ( Amer) 44 Est GFR (Non-Af Amer) 36 POC Glucose (mg/dL) 443 H* (65-110) mg/dL Random Glucose 353 H (75-110) mg/dL Calcium 6.2 L (8.6-10.4) mg/dl Phosphorus 3.5 (2.5-4.5) mg/dL Magnesium 2.3 (1.6-2.3) mg/dL Total Bilirubin 0.8 (0.2-1.3) mg/dL AST 57 (17-59) U/L ALT 18 L D (21-72) U/L Alkaline Phosphatase 176 H (38-126) U/L Total Protein 6.8 (6.3-8.3) g/dL Albumin 2.5 L (3.5-5.0) g/dL Globulin 4.2 H (2.2-3.9) gm/dL Albumin/Globulin Ratio 0.6 L (1.0-2.1) Vancomycin Trough (5.0-10.0) ug/mL 03/25/17 03/25/17 03/25/17 Range/Units 06:12 05:16 05:08 WBC (4.8-10.8) K/uL RBC (4.40-5.90) Mil/uL Hgb (12.0-18.0) g/dL Hct (35.0-51.0) % MCV (80.0-94.0) fL MCH (27.0-31.0) pg MCHC (33.0-37.0) g/dL RDW (11.5-14.5) % Plt Count (130-400) K/uL MPV (7.2-11.7) fL Neut % (Auto) (50.0-75.0) % Lymph % (Auto) (20.0-40.0) % [place] % (Auto) (0.0-10.0) % Eos % (Auto) (0.0-4.0) % Baso % (Auto) (0.0-2.0) % Neut # (1.8-7.0) K/uL Lymph # (1.0-4.3) K/uL [place] # (0.0-0.8) K/uL Eos # (0.0-0.7) K/uL Baso # (0.0-0.2) K/uL Neutrophils % (Manual) (50-75) % Lymphocytes % (Manual) (20-40) % Monocytes % (Manual) (0-10) % Platelet Estimate (NORMAL) Hypochromasia (manual) Anisocytosis (manual) Puncture Site Lb pCO2 30 L (35-45) mm/Hg pO2 116 H (80-100) mm/Hg HCO3 27.0 (21-28) mmol/L ABG pH 7.53 H (7.35-7.45) ABG Total CO2 26.0 (22-28) mmol/L ABG O2 Saturation 99.5 H (95-98) % ABG Base Excess 2.7 (-2.0-3.0) mmol/L ABG Hemoglobin 9.5 L (11.7-17.4) g/dL ABG Carboxyhemoglobin 1.4 (0.5-1.5) % POC ABG HHb (Measured) 0.5 (0.0-5.0) % ABG Methemoglobin 1.1 (0.0-3.0) % Heriberto Test Na A-a O2 Difference 203.0 mm/Hg Respiratory Index 1.8 Hgb O2 Saturation 97.0 (95.0-98.0) % Vent Mode Cpap FiO2 50.0 % Pressure Support 15 CPAP 5 Sodium (132-148) mmol/L Potassium (3.6-5.2) mmol/L Chloride (98-107) mmol/L Carbon Dioxide (22-30) mmol/L Anion Gap (10-20) BUN (9-20) mg/dL Creatinine (0.8-1.5) mg/dL Est GFR ( Amer) Est GFR (Non-Af Amer) POC Glucose (mg/dL) 368 H (65-110) mg/dL Random Glucose (75-110) mg/dL Calcium (8.6-10.4) mg/dl Phosphorus (2.5-4.5) mg/dL Magnesium (1.6-2.3) mg/dL Total Bilirubin (0.2-1.3) mg/dL AST (17-59) U/L ALT (21-72) U/L Alkaline Phosphatase (38-126) U/L Total Protein (6.3-8.3) g/dL Albumin (3.5-5.0) g/dL Globulin (2.2-3.9) gm/dL Albumin/Globulin Ratio (1.0-2.1) Vancomycin Trough 27.2 H (5.0-10.0) ug/mL 03/24/17 03/24/17 Range/Units 23:39 17:21 WBC (4.8-10.8) K/uL RBC (4.40-5.90) Mil/uL Hgb (12.0-18.0) g/dL Hct (35.0-51.0) % MCV (80.0-94.0) fL MCH (27.0-31.0) pg MCHC (33.0-37.0) g/dL RDW (11.5-14.5) % Plt Count (130-400) K/uL MPV (7.2-11.7) fL Neut % (Auto) (50.0-75.0) % Lymph % (Auto) (20.0-40.0) % [place] % (Auto) (0.0-10.0) % Eos % (Auto) (0.0-4.0) % Baso % (Auto) (0.0-2.0) % Neut # (1.8-7.0) K/uL Lymph # (1.0-4.3) K/uL [place] # (0.0-0.8) K/uL Eos # (0.0-0.7) K/uL Baso # (0.0-0.2) K/uL Neutrophils % (Manual) (50-75) % Lymphocytes % (Manual) (20-40) % Monocytes % (Manual) (0-10) % Platelet Estimate (NORMAL) Hypochromasia (manual) Anisocytosis (manual) Puncture Site pCO2 (35-45) mm/Hg pO2 (80-100) mm/Hg HCO3 (21-28) mmol/L ABG pH (7.35-7.45) ABG Total CO2 (22-28) mmol/L ABG O2 Saturation (95-98) % ABG Base Excess (-2.0-3.0) mmol/L ABG Hemoglobin (11.7-17.4) g/dL ABG Carboxyhemoglobin (0.5-1.5) % POC ABG HHb (Measured) (0.0-5.0) % ABG Methemoglobin (0.0-3.0) % Heriberto Test A-a O2 Difference mm/Hg Respiratory Index Hgb O2 Saturation (95.0-98.0) % Vent Mode FiO2 % Pressure Support CPAP Sodium (132-148) mmol/L Potassium (3.6-5.2) mmol/L Chloride (98-107) mmol/L Carbon Dioxide (22-30) mmol/L Anion Gap (10-20) BUN (9-20) mg/dL Creatinine (0.8-1.5) mg/dL Est GFR ( Amer) Est GFR (Non-Af Amer) POC Glucose (mg/dL) 271 H 267 H (65-110) mg/dL Random Glucose (75-110) mg/dL Calcium (8.6-10.4) mg/dl Phosphorus (2.5-4.5) mg/dL Magnesium (1.6-2.3) mg/dL Total Bilirubin (0.2-1.3) mg/dL AST (17-59) U/L ALT (21-72) U/L Alkaline Phosphatase (38-126) U/L Total Protein (6.3-8.3) g/dL Albumin (3.5-5.0) g/dL Globulin (2.2-3.9) gm/dL Albumin/Globulin Ratio (1.0-2.1) Vancomycin Trough (5.0-10.0) ug/mL Laboratory Results - last 24 hr 03/24/17 03/24/17 03/25/17 17:21 23:39 05:08 WBC RBC Hgb Hct MCV MCH MCHC RDW Plt Count MPV Neut % (Auto) Lymph % (Auto) [place] % (Auto) Eos % (Auto) Baso % (Auto) Neut # Lymph # [place] # Eos # Baso # Neutrophils % (Manual) Lymphocytes % (Manual) Monocytes % (Manual) Platelet Estimate Hypochromasia (manual) Anisocytosis (manual) Puncture Site pCO2 pO2 HCO3 ABG pH ABG Total CO2 ABG O2 Saturation ABG Base Excess ABG Hemoglobin ABG Carboxyhemoglobin POC ABG HHb (Measured) ABG Methemoglobin Heriberto Test A-a O2 Difference Respiratory Index Hgb O2 Saturation Vent Mode FiO2 Pressure Support CPAP Sodium Potassium Chloride Carbon Dioxide Anion Gap BUN Creatinine Est GFR ( Amer) Est GFR (Non-Af Amer) POC Glucose (mg/dL) 267 H 271 H 368 H Random Glucose Calcium Phosphorus Magnesium Total Bilirubin AST ALT Alkaline Phosphatase Total Protein Albumin Globulin Albumin/Globulin Ratio Vancomycin Trough 03/25/17 03/25/17 03/25/17 05:16 06:12 06:12 WBC 12.6 H RBC 3.11 L Hgb 9.6 L Hct 29.5 L MCV 94.6 H MCH 30.7 MCHC 32.5 L RDW 18.5 H Plt Count 84 L MPV 14.3 H Neut % (Auto) 90.0 H Lymph % (Auto) 5.3 L [place] % (Auto) 4.6 Eos % (Auto) 0.0 Baso % (Auto) 0.1 Neut # 11.3 H Lymph # 0.7 L [place] # 0.6 Eos # 0.0 Baso # 0.0 Neutrophils % (Manual) 94 H Lymphocytes % (Manual) 4 L Monocytes % (Manual) 2 Platelet Estimate Decreased L Hypochromasia (manual) Slight Anisocytosis (manual) Slight Puncture Site Lb pCO2 30 L pO2 116 H HCO3 27.0 ABG pH 7.53 H ABG Total CO2 26.0 ABG O2 Saturation 99.5 H ABG Base Excess 2.7 ABG Hemoglobin 9.5 L ABG Carboxyhemoglobin 1.4 POC ABG HHb (Measured) 0.5 ABG Methemoglobin 1.1 Heriberto Test Na A-a O2 Difference 203.0 Respiratory Index 1.8 Hgb O2 Saturation 97.0 Vent Mode Cpap FiO2 50.0 Pressure Support 15 CPAP 5 Sodium Potassium Chloride Carbon Dioxide Anion Gap BUN Creatinine Est GFR ( Amer) Est GFR (Non-Af Amer) POC Glucose (mg/dL) Random Glucose Calcium Phosphorus Magnesium Total Bilirubin AST ALT Alkaline Phosphatase Total Protein Albumin Globulin Albumin/Globulin Ratio Vancomycin Trough 27.2 H 03/25/17 03/25/17 06:12 12:01 WBC RBC Hgb Hct MCV MCH MCHC RDW Plt Count MPV Neut % (Auto) Lymph % (Auto) [place] % (Auto) Eos % (Auto) Baso % (Auto) Neut # Lymph # [place] # Eos # Baso # Neutrophils % (Manual) Lymphocytes % (Manual) Monocytes % (Manual) Platelet Estimate Hypochromasia (manual) Anisocytosis (manual) Puncture Site pCO2 pO2 HCO3 ABG pH ABG Total CO2 ABG O2 Saturation ABG Base Excess ABG Hemoglobin ABG Carboxyhemoglobin POC ABG HHb (Measured) ABG Methemoglobin Heriberto Test A-a O2 Difference Respiratory Index Hgb O2 Saturation Vent Mode FiO2 Pressure Support CPAP Sodium 150 H Potassium 3.2 L Chloride 120 H Carbon Dioxide 25 Anion Gap 8 L BUN 88 H Creatinine 1.8 H Est GFR ( Amer) 44 Est GFR (Non-Af Amer) 36 POC Glucose (mg/dL) 443 H* Random Glucose 353 H Calcium 6.2 L Phosphorus 3.5 Magnesium 2.3 Total Bilirubin 0.8 AST 57 ALT 18 L D Alkaline Phosphatase 176 H Total Protein 6.8 Albumin 2.5 L Globulin 4.2 H Albumin/Globulin Ratio 0.6 L Vancomycin Trough Assessment/Plan (1) Respiratory failure with hypoxia and hypercapnia Current Visit: Yes Status: Acute Priority: High Onset Date: ~03/21/17 Comment: respiratory failure secondary to sepsis Sputum positive for gram-negative and staph aureus On IV antibiotics wean as tolerated. hold feeding On bicarbonate drip reduced to 75 mL Transfuse 1 unit packed RBCs (2) Anemia Current Visit: Yes Status: Acute Comment: anemia secondary to GI bleed Transfuse 1 unit packed RBCs Elevated BUNs secondary to GI bleed (3) CLEMENT (acute kidney injury) Current Visit: Yes Status: Acute Priority: High (4) Septic shock Current Visit: Yes Status: Acute Attending/Attestation - Attestation I have personally seen and examined this patient.: Yes I have fully participated in the care of the patient.: Yes I have reviewed all pertinent clinical information: Yes Notes (Text): 03/25/17 17:24 patient seen and examined in the intensive care unit.Case discussed with house staff in the morning rounds Tolerating CPAP Does not follow commands Afebrile Patient is off pressors Continue antibiotics Continue feeding
[2017-03-26] MEDS: Aritificial Tears (15ml) OD SCH ×12 (00:04→22:33)
[2017-03-26] MEDS: Albuterol-Ipratrop 3 mg / 0.5 (3 ml) UD INH SCH ×4 (01:50→20:18)
[2017-03-26] MEDS: Piperacill/Tazo 2.25gm in Dex 2.25 GM/50 ML BAG IVPB SCH ×3 (04:59→21:00)
[2017-03-26] MEDS: (Novolog) Insulin Aspart, Recombinant 100 u/ml 10 ml vial SC SCH ×5 (05:57→23:37)
[2017-03-26 06:12] LABS: ABG ALLEN TEST POS; ARTERIAL BLOOD GAS HCO3 26.3 mmol/L (21-28); ARTERIAL BLOOD GAS HEMOGLOBIN 15.1 g/dL (11.7-17.4); ARTERIAL BLOOD GAS O2 SAT 99.2 % (95-98); ARTERIAL BLOOD GAS PCO2 32 mm/Hg (35-45); ARTERIAL BLOOD GAS PH 7.49 (7.35-7.45); ARTERIAL BLOOD GAS PO2 113 mm/Hg (80-100); ARTERIAL BLOOD GAS TCO2 25.4 mmol/L (22-28)
[2017-03-26 07:30] LABS: ALB/GLOB RATIO 0.6 (1.0-2.1); ALBUMIN 2.6 g/dL (3.5-5.0); CALCIUM 6.3 mg/dl (8.6-10.4); MAGNESIUM 2.2 mg/dL (1.6-2.3)
--- NOTE | 2017-03-26 08:11 | CP.PCM.PN ---
Subjective - Date & Time of Evaluation Date of Evaluation: 03/26/17 Time of Evaluation: 07:30 - Subjective Subjective: clinically same Objective - Vital Signs/Intake and Output Vital Signs (last 24 hours): Temp Pulse Resp BP Pulse Ox 98 F 89 20 123/68 100 03/26/17 04:00 03/26/17 07:00 03/26/17 07:00 03/26/17 06:24 03/26/17 07:00 Intake and Output: 03/26/17 03/26/17 06:59 18:59 Intake Total 1100 0 Output Total 590 Balance 510 0 - Medications Medications: Current Medications Albuterol/Ipratropium (Duoneb 3 Mg/0.5 Mg (3 Ml) Ud) 3 ml INH RQ6 [facility] Last Admin: 03/26/17 01:50 Dose: 3 ml Artificial Tears (Artificial Tears) 0 ml OD Q2H [facility] Last Admin: 03/26/17 08:02 Dose: 1 drop Carbidopa/Levodopa (Sinemet 10/100) 1 tab PO QID [facility] Last Admin: 03/25/17 21:21 Dose: 1 tab Heparin Sodium (Porcine) (Heparin) 5,000 units SC Q12H [facility] Last Admin: 03/25/17 23:58 Dose: 5,000 units Piperacillin Sod/Tazobactam Sod (Zosyn 2.25 Gm Iv Premix) 2.25 gm in 50 mls @ 100 mls/hr IVPB Q8H [facility] Last Admin: 03/26/17 04:59 Dose: 100 mls/hr Norepinephrine Bitartrate 8 mg (/ Sodium Chloride) 258 mls @ 7.74 mls/hr IV .Q24H PRN; Protocol; 4 MCG/MIN PRN Reason: TITRATE PER MD ORDER Last Titration: 03/25/17 00:37 Dose: 0 mcg/min, 0 mls/hr Vancomycin HCl 1 gm/ Sodium (Chloride) 200 mls @ 133.333 mls/hr IVPB Q24H [facility] Last Admin: 03/24/17 17:15 Dose: 133.333 mls/hr Insulin Aspart (Novolog) 0 unit SC Q6 AUGUST PRN Reason: Protocol Last Admin: 03/26/17 05:57 Dose: 2 unit Midazolam HCl (Versed Inj) 2 mg IVP Q4H PRN PRN Reason: Agitation Multivitamins/Vitamin C (Multi-Delyn Liquid) 5 ml GT DAILY [facility] Last Admin: 03/25/17 11:32 Dose: 5 ml Pantoprazole Sodium (Protonix Inj) 40 mg IVP DAILY [facility] Last Admin: 03/25/17 11:32 Dose: 40 mg - Labs Labs: 03/25/17 06:12 03/26/17 06:49 PT 14.1 SECONDS (9.7-12.2) H 03/21/17 19:13 INR 1.3 03/21/17 19:13 APTT 33 SECONDS (21-34) 03/21/17 19:13
[2017-03-26 08:28] LABS: HEMOGLOBIN 9.4 g/dL (12.0-18.0); LYMPH # 0.9 K/uL (1.0-4.3); LYMPH % 9.5 % (20.0-40.0); MEAN CELL VOLUME 94.1 fL (80.0-94.0); MEAN CORPUSCULAR HEMOGLOBIN 30.5 pg (27.0-31.0); MEAN CORPUSCULAR HGB CONC 32.4 g/dL (33.0-37.0); MEAN PLATELET VOLUME 13.2 fL (7.2-11.7); MONO # 0.5 K/uL (0.0-0.8); MONO % 5.1 % (0.0-10.0); NEUT # 8.4 K/uL (1.8-7.0); NEUT % 85.4 % (50.0-75.0); NRBC % 0.1 % (0.0-2.0); PLATELET COUNT 89 K/uL (130-400); RBC 3.08 Mil/uL (4.40-5.90); RED CELL DISTRIBUTION WIDTH 17.4 % (11.5-14.5); WHITE BLOOD COUNT 9.9 K/uL (4.8-10.8)
[2017-03-26 08:55] LABS: ANISOCYTOSIS SLIGHT; LYMPHOCYTE 6 % (20-40); MONOCYTE 4 % (0-10); NEUTROPHIL 90 % (50-75); PLATELET ESTIMATE DECREASED (NORMAL); TOTAL CELLS COUNTED 100
[2017-03-26 08:56] LABS: HYPOCHROMIC SLIGHT
[2017-03-26] MEDS: Multiple Vitamins Oral Solution GT SCH (09:42)
--- NOTE | 2017-03-26 10:17 | CP.CCUPN ---
<Alexandrea Roberts - Last Filed: 03/26/17 10:14> CCU Subjective - Physician Review Subjective (Free Text): 03/26/17 10:[address] Cleary Patient seen and examined at bedside. Patient opens eyes to sternal rub, is able to raise arms on command. GCS 9T (E3V1M5). CPAP FiO2 50% PS 10 PEEP 5 Patient is on versed PRN for sedation Critical Care Time Spent (in minutes): 35 CCU Objective - Vital Signs / Intake & Output Vital Signs (Last 4 hours): Vital Signs Temp Pulse Resp BP Pulse Ox 03/26/17 09:00 91 H 19 116/66 100 03/26/17 08:00 97.6 F 99 H 25 H 111/67 100 03/26/17 07:00 89 20 100 03/26/17 06:24 92 H 23 123/68 100 Intake and Output (Last 8hrs): Intake & Output 03/25/17 03/26/17 03/26/17 22:59 06:59 14:59 Intake Total 360 1050 100 Output Total 440 375 150 Balance -80 675 -50 Weight 142 lb 3.2 oz Intake: Intake, IV Amount 50 50 100 Left External Jugular 50 Right Distal Port 50 100 Subclavian Oral 0 0 0 Tube Feeding 60 Other 250 1000 Output: Urine 440 375 150 Urethral (Siu) 440 375 150 Other: # Bowel Movements 1 1 - Physical Exam Head: Positive for: Atraumatic, Normocephalic Pupils: Positive for: PERRL Conjunctiva: Positive for: Normal Mouth: Positive for: Moist Mucous Membranes Respiratory/Chest: Positive for: Clear to Auscultation, Decreased Breath Sounds Cardiovascular: Positive for: Regular Rate and Rhythm, Normal S1, S2 Abdomen: Positive for: Normal Bowel Sounds. Negative for: Tenderness, Distention Upper Extremity: Positive for: Normal Inspection, Capillary Refill < 2s Lower Extremity: Positive for: Capillary Refill < 2 s, Other (sacral decubitus) Skin: Positive for: Dry, Other (sacral decubitus ulcer) Psychiatric: Negative for: Alert, Oriented x 3 - Medications Active Medications: Active Medications Generic Name Dose Route Start Last Admin Trade Name Freq PRN Reason Stop Dose Admin Albuterol/Ipratropium 3 ml 03/22/17 02:00 03/26/17 08:15 Duoneb 3 Mg/0.5 Mg (3 Ml) Ud INH 3 ml RQ6 AUGUST Administration Artificial Tears 0 ml 03/24/17 08:30 03/26/17 09:42 Artificial Tears OD 1 drop Q2H AUGUST Administration Carbidopa/Levodopa 1 tab 03/24/17 10:00 03/26/17 09:42 Sinemet 10/100 PO 1 tab QID AUGUST Administration Heparin Sodium (Porcine) 5,000 units 03/25/17 23:45 03/25/17 23:58 Heparin SC 5,000 units Q12H AUGUST Administration Piperacillin Sod/Tazobactam Sod 2.25 gm in 50 mls @ 100 mls/hr 03/21/17 21:00 03/26/17 04:59 Zosyn 2.25 Gm Iv Premix IVPB 100 mls/hr Q8H AUGUST Administration Norepinephrine Bitartrate 8 mg 258 mls @ 7.74 mls/hr 03/22/17 08:36 03/25/17 00:37 / Sodium Chloride IV 0 mcg/min .Q24H PRN 0 mls/hr TITRATE PER MD ORDER Titration Protocol 4 MCG/MIN Vancomycin HCl 1 gm/ Sodium 200 mls @ 133.333 mls/hr 03/23/17 18:00 03/24/17 17:15 Chloride IVPB 133.333 mls/hr Q24H A[facility] Administration Potassium Chloride 20 meq in 100 mls @ 50 mls/hr 03/26/17 08:30 03/26/17 09: 54 Potassium Chloride 20 Meq/100 Ml IVPB 03/26/17 14:29 50 mls/hr Q2H A[facility] Administration Insulin Aspart 0 unit 03/25/17 09:12 03/26/17 05:57 Novolog SC 2 unit Q6 AUGUST Administration Protocol Midazolam HCl 2 mg 03/22/17 18:51 Versed Inj IVP Q4H PRN Agitation Multivitamins/Vitamin C 5 ml 03/22/17 10:00 03/26/17 09:42 Multi-Delyn Liquid GT 5 ml DAILY AUGUST Administration Pantoprazole Sodium 40 mg 03/22/17 10:00 03/26/17 09:42 Protonix Inj IVP 40 mg DAILY AUGUST Administration - Patient Studies Lab Studies: Microbiology Studies 03/21/17 19:10 Blood Culture - Preliminary Blood NO GROWTH AFTER 4 DAYS 03/21/17 19:40 Blood Culture - Preliminary Blood NO GROWTH AFTER 3 DAYS Lab Studies 03/26/17 03/26/17 03/26/17 Range/Units 08:16 06:49 06:49 WBC 9.9 (4.8-10.8) K/uL RBC 3.08 L (4.40-5.90) Mil/uL Hgb 9.4 L (12.0-18.0) g/dL Hct 29.0 L (35.0-51.0) % MCV 94.1 H (80.0-94.0) fL MCH 30.5 (27.0-31.0) pg MCHC 32.4 L (33.0-37.0) g/dL RDW 17.4 H (11.5-14.5) % Plt Count 89 L (130-400) K/uL MPV 13.2 H (7.2-11.7) fL Neut % (Auto) 85.4 H (50.0-75.0) % Lymph % (Auto) 9.5 L (20.0-40.0) % [place] % (Auto) 5.1 (0.0-10.0) % Eos % (Auto) 0.0 (0.0-4.0) % Baso % (Auto) 0.0 (0.0-2.0) % Neut # 8.4 H (1.8-7.0) K/uL Lymph # 0.9 L (1.0-4.3) K/uL [place] # 0.5 (0.0-0.8) K/uL Eos # 0.0 (0.0-0.7) K/uL Baso # 0.0 (0.0-0.2) K/uL Neutrophils % (Manual) 90 H (50-75) % Lymphocytes % (Manual) 6 L (20-40) % Monocytes % (Manual) 4 (0-10) % Platelet Estimate Decreased L (NORMAL) Hypochromasia (manual) Slight Anisocytosis (manual) Slight Puncture Site pCO2 (35-45) mm/Hg pO2 (80-100) mm/Hg HCO3 (21-28) mmol/L ABG pH (7.35-7.45) ABG Total CO2 (22-28) mmol/L ABG O2 Saturation (95-98) % ABG Base Excess (-2.0-3.0) mmol/L ABG Hemoglobin (11.7-17.4) g/dL ABG Carboxyhemoglobin (0.5-1.5) % POC ABG HHb (Measured) (0.0-5.0) % ABG Methemoglobin (0.0-3.0) % Heriberto Test A-a O2 Difference mm/Hg Respiratory Index Hgb O2 Saturation (95.0-98.0) % Vent Mode FiO2 % Pressure Support CPAP Sodium 149 H (132-148) mmol/L Potassium 3.0 L (3.6-5.2) mmol/L Chloride 117 H (98-107) mmol/L Carbon Dioxide 25 (22-30) mmol/L Anion Gap 10 (10-20) BUN 71 H (9-20) mg/dL Creatinine 1.7 H (0.8-1.5) mg/dL Est GFR ( Amer) 46 Est GFR (Non-Af Amer) 38 POC Glucose (mg/dL) (65-110) mg/dL Random Glucose 186 H (75-110) mg/dL Calcium 6.3 L (8.6-10.4) mg/dl Phosphorus 3.5 (2.5-4.5) mg/dL Magnesium 2.2 (1.6-2.3) mg/dL Total Bilirubin 0.9 (0.2-1.3) mg/dL AST 54 (17-59) U/L ALT 12 L D (21-72) U/L Alkaline Phosphatase 177 H (38-126) U/L Total Protein 7.0 (6.3-8.3) g/dL Albumin 2.6 L (3.5-5.0) g/dL Globulin 4.4 H (2.2-3.9) gm/dL Albumin/Globulin Ratio 0.6 L (1.0-2.1) Random Vancomycin 19.81 ug/mL 03/26/17 03/26/17 03/25/17 Range/Units 05:53 05:14 23:43 WBC (4.8-10.8) K/uL RBC (4.40-5.90) Mil/uL Hgb (12.0-18.0) g/dL Hct (35.0-51.0) % MCV (80.0-94.0) fL MCH (27.0-31.0) pg MCHC (33.0-37.0) g/dL RDW (11.5-14.5) % Plt Count (130-400) K/uL MPV (7.2-11.7) fL Neut % (Auto) (50.0-75.0) % Lymph % (Auto) (20.0-40.0) % [place] % (Auto) (0.0-10.0) % Eos % (Auto) (0.0-4.0) % Baso % (Auto) (0.0-2.0) % Neut # (1.8-7.0) K/uL Lymph # (1.0-4.3) K/uL [place] # (0.0-0.8) K/uL Eos # (0.0-0.7) K/uL Baso # (0.0-0.2) K/uL Neutrophils % (Manual) (50-75) % Lymphocytes % (Manual) (20-40) % Monocytes % (Manual) (0-10) % Platelet Estimate (NORMAL) Hypochromasia (manual) Anisocytosis (manual) Puncture Site Rr pCO2 32 L (35-45) mm/Hg pO2 113 H (80-100) mm/Hg HCO3 26.3 (21-28) mmol/L ABG pH 7.49 H (7.35-7.45) ABG Total CO2 25.4 (22-28) mmol/L ABG O2 Saturation 99.2 H (95-98) % ABG Base Excess 1.8 (-2.0-3.0) mmol/L ABG Hemoglobin 15.1 (11.7-17.4) g/dL ABG Carboxyhemoglobin 1.3 (0.5-1.5) % POC ABG HHb (Measured) 0.8 (0.0-5.0) % ABG Methemoglobin 1.1 (0.0-3.0) % Heriberto Test Pos A-a O2 Difference 204.0 mm/Hg Respiratory Index 1.8 Hgb O2 Saturation 96.8 (95.0-98.0) % Vent Mode Cpap FiO2 50.0 % Pressure Support 10 CPAP 5 Sodium (132-148) mmol/L Potassium (3.6-5.2) mmol/L Chloride (98-107) mmol/L Carbon Dioxide (22-30) mmol/L Anion Gap (10-20) BUN (9-20) mg/dL Creatinine (0.8-1.5) mg/dL Est GFR ( Amer) Est GFR (Non-Af Amer) POC Glucose (mg/dL) 192 H 157 H (65-110) mg/dL Random Glucose (75-110) mg/dL Calcium (8.6-10.4) mg/dl Phosphorus (2.5-4.5) mg/dL Magnesium (1.6-2.3) mg/dL Total Bilirubin (0.2-1.3) mg/dL AST (17-59) U/L ALT (21-72) U/L Alkaline Phosphatase (38-126) U/L Total Protein (6.3-8.3) g/dL Albumin (3.5-5.0) g/dL Globulin (2.2-3.9) gm/dL Albumin/Globulin Ratio (1.0-2.1) Random Vancomycin ug/mL 03/25/17 03/25/17 Range/Units 17:26 12:01 WBC (4.8-10.8) K/uL RBC (4.40-5.90) Mil/uL Hgb (12.0-18.0) g/dL Hct (35.0-51.0) % MCV (80.0-94.0) fL MCH (27.0-31.0) pg MCHC (33.0-37.0) g/dL RDW (11.5-14.5) % Plt Count (130-400) K/uL MPV (7.2-11.7) fL Neut % (Auto) (50.0-75.0) % Lymph % (Auto) (20.0-40.0) % [place] % (Auto) (0.0-10.0) % Eos % (Auto) (0.0-4.0) % Baso % (Auto) (0.0-2.0) % Neut # (1.8-7.0) K/uL Lymph # (1.0-4.3) K/uL [place] # (0.0-0.8) K/uL Eos # (0.0-0.7) K/uL Baso # (0.0-0.2) K/uL Neutrophils % (Manual) (50-75) % Lymphocytes % (Manual) (20-40) % Monocytes % (Manual) (0-10) % Platelet Estimate (NORMAL) Hypochromasia (manual) Anisocytosis (manual) Puncture Site pCO2 (35-45) mm/Hg pO2 (80-100) mm/Hg HCO3 (21-28) mmol/L ABG pH (7.35-7.45) ABG Total CO2 (22-28) mmol/L ABG O2 Saturation (95-98) % ABG Base Excess (-2.0-3.0) mmol/L ABG Hemoglobin (11.7-17.4) g/dL ABG Carboxyhemoglobin (0.5-1.5) % POC ABG HHb (Measured) (0.0-5.0) % ABG Methemoglobin (0.0-3.0) % Heriberto Test A-a O2 Difference mm/Hg Respiratory Index Hgb O2 Saturation (95.0-98.0) % Vent Mode FiO2 % Pressure Support CPAP Sodium (132-148) mmol/L Potassium (3.6-5.2) mmol/L Chloride (98-107) mmol/L Carbon Dioxide (22-30) mmol/L Anion Gap (10-20) BUN (9-20) mg/dL Creatinine (0.8-1.5) mg/dL Est GFR ( Amer) Est GFR (Non-Af Amer) POC Glucose (mg/dL) 389 H 443 H* (65-110) mg/dL Random Glucose (75-110) mg/dL Calcium (8.6-10.4) mg/dl Phosphorus (2.5-4.5) mg/dL Magnesium (1.6-2.3) mg/dL Total Bilirubin (0.2-1.3) mg/dL AST (17-59) U/L ALT (21-72) U/L Alkaline Phosphatase (38-126) U/L Total Protein (6.3-8.3) g/dL Albumin (3.5-5.0) g/dL Globulin (2.2-3.9) gm/dL Albumin/Globulin Ratio (1.0-2.1) Random Vancomycin ug/mL Laboratory Results - last 24 hr 03/25/17 03/25/17 03/25/17 12:01 17:26 23:43 WBC RBC Hgb Hct MCV MCH MCHC RDW Plt Count MPV Neut % (Auto) Lymph % (Auto) [place] % (Auto) Eos % (Auto) Baso % (Auto) Neut # Lymph # [place] # Eos # Baso # Neutrophils % (Manual) Lymphocytes % (Manual) Monocytes % (Manual) Platelet Estimate Hypochromasia (manual) Anisocytosis (manual) Puncture Site pCO2 pO2 HCO3 ABG pH ABG Total CO2 ABG O2 Saturation ABG Base Excess ABG Hemoglobin ABG Carboxyhemoglobin POC ABG HHb (Measured) ABG Methemoglobin Heriberto Test A-a O2 Difference Respiratory Index Hgb O2 Saturation Vent Mode FiO2 Pressure Support CPAP Sodium Potassium Chloride Carbon Dioxide Anion Gap BUN Creatinine Est GFR ( Amer) Est GFR (Non-Af Amer) POC Glucose (mg/dL) 443 H* 389 H 157 H Random Glucose Calcium Phosphorus Magnesium Total Bilirubin AST ALT Alkaline Phosphatase Total Protein Albumin Globulin Albumin/Globulin Ratio Random Vancomycin 03/26/17 03/26/17 03/26/17 05:14 05:53 06:49 WBC RBC Hgb Hct MCV MCH MCHC RDW Plt Count MPV Neut % (Auto) Lymph % (Auto) [place] % (Auto) Eos % (Auto) Baso % (Auto) Neut # Lymph # [place] # Eos # Baso # Neutrophils % (Manual) Lymphocytes % (Manual) Monocytes % (Manual) Platelet Estimate Hypochromasia (manual) Anisocytosis (manual) Puncture Site Rr pCO2 32 L pO2 113 H HCO3 26.3 ABG pH 7.49 H ABG Total CO2 25.4 ABG O2 Saturation 99.2 H ABG Base Excess 1.8 ABG Hemoglobin 15.1 ABG Carboxyhemoglobin 1.3 POC ABG HHb (Measured) 0.8 ABG Methemoglobin 1.1 Heriberto Test Pos A-a O2 Difference 204.0 Respiratory Index 1.8 Hgb O2 Saturation 96.8 Vent Mode Cpap FiO2 50.0 Pressure Support 10 CPAP 5 Sodium Potassium Chloride Carbon Dioxide Anion Gap BUN Creatinine Est GFR ( Amer) Est GFR (Non-Af Amer) POC Glucose (mg/dL) 192 H Random Glucose Calcium Phosphorus Magnesium Total Bilirubin AST ALT Alkaline Phosphatase Total Protein Albumin Globulin Albumin/Globulin Ratio Random Vancomycin 19.81 03/26/17 03/26/17 06:49 08:16 WBC 9.9 RBC 3.08 L Hgb 9.4 L Hct 29.0 L MCV 94.1 H MCH 30.5 MCHC 32.4 L RDW 17.4 H Plt Count 89 L MPV 13.2 H Neut % (Auto) 85.4 H Lymph % (Auto) 9.5 L [place] % (Auto) 5.1 Eos % (Auto) 0.0 Baso % (Auto) 0.0 Neut # 8.4 H Lymph # 0.9 L [place] # 0.5 Eos # 0.0 Baso # 0.0 Neutrophils % (Manual) 90 H Lymphocytes % (Manual) 6 L Monocytes % (Manual) 4 Platelet Estimate Decreased L Hypochromasia (manual) Slight Anisocytosis (manual) Slight Puncture Site pCO2 pO2 HCO3 ABG pH ABG Total CO2 ABG O2 Saturation ABG Base Excess ABG Hemoglobin ABG Carboxyhemoglobin POC ABG HHb (Measured) ABG Methemoglobin Heriberto Test A-a O2 Difference Respiratory Index Hgb O2 Saturation Vent Mode FiO2 Pressure Support CPAP Sodium 149 H Potassium 3.0 L Chloride 117 H Carbon Dioxide 25 Anion Gap 10 BUN 71 H Creatinine 1.7 H Est GFR ( Amer) 46 Est GFR (Non-Af Amer) 38 POC Glucose (mg/dL) Random Glucose 186 H Calcium 6.3 L Phosphorus 3.5 Magnesium 2.2 Total Bilirubin 0.9 AST 54 ALT 12 L D Alkaline Phosphatase 177 H Total Protein 7.0 Albumin 2.6 L Globulin 4.4 H Albumin/Globulin Ratio 0.6 L Random Vancomycin Fingerstick Blood Sugar Results: 192 Assessment/Plan - Assessment and Plan (Free Text) Assessment: 03/25/17 09:[address] Cleary Patient seen and examined at bedside. GCS 10T (E3V1M6). Patient opens eyes. blinks, has cough/gag reflex. Patient does not track or follow. Patient is on versed PRN for sedation. CPAP 10 FIO2 50% Assessment: 87yo M. PMHx Parkinson's, Alzheimer's, PEG, hypertension, diabetes, anemia, chronic diastolic CHF, thrombocytopenia, Hematuria. Intubated by EMS for respiratory failure. Neuro: GCS: 10T (E3V1M6) Sedation: Versed 2mg IVP Q4H PRN Hx Parkinsons Disease: Carbidopa Levodopa 1 tab PO QID [facility] 03/21 CT Head: No intracranial abnormality Pulm: acute respiratory failure, on vent. possible aspiration pneumonia, duonebs , abx. Images: 03/21 CXR: ET tube in appropriate position. No evidence of new significant infiltrate or consolidation in lungs. G tube extends into abdomen. 03/22 CXR: mild venous congestion 03/22 repeat CXR: interval improvement 03/23 CXR: no interval change, small left pleural effusion 03/25 CXR: no interval change, small left pleural effusion 03/26 CXR: no interval, small left pleural effusion Meds: Albuterol/Ipratropium 3cc INH RQ6H Hydrocortisone Sodium Succinate 50 mg IV Q8H [facility] 03/24 05:16 pH 7.53, pCO2 28, pO2 158, pHCO3 26.3, PRVC RR 14, FiO2 50%, TV 450, PEEP 5 03/25 05:16 pH 7.53, pCO2 30, pO2 116, pHCO3 27, CPAP PS 15, FiO2 50%, TV 450, PEEP 5 03/26 05:14 pH 7.49, pCO2 32, pO2 113, pHCO3 26.3, CPAP FiO2 50%, PS 10, PEEP 5 Cardio: Hypotension secondary to septic shock Pressors: Patient is on levophed (last administered 03/25/17) Heme/onc: anemia of chronic disease, leukocytosis from sepsis Monitor H/H Endo: T2DM SISS for coverage (High) Accucheck ACHS GI: PEG tube at 30cc/hr Diet: NPO 03/22 CT abdomen/pelvis: NGT in stomach. PEG in stomach in good position. Diffusely fluid-filled mildly prominent small bowel, with no definite transition point. probable enteritis. Retained stool. nonspecific colonic wall thickening 03/22 Gastric Occult Blood Positive Nephro: Acute Renal Failure, improving BUN 88 (128 on admission) Creatinine 1.8 (2.4 on admission) Hypernatremia improving Na 150 (172 on admission) 03/24 Hypokalemia, repleted 03/25 Hypokalemia, repleted 03/26 hypokalemia, repleted I/Os: 2685/1415 = 1270 hourly urine output 30-125cc/hr siu for strict I/O's during acute illness 03/21 Urine Culture: proteus mirabilis, sensitive to Zosyn Sodium bicarb 75 meq IV 75cc/hr ID: septic shock due to multiple possible sources (decubitus ulcer, aspiration pneumonia) f/u blood cultures 03/21 sputum culture: S aureus, gram negative rods 03/21 Urine Culture: proteus mirabilis, sensitive to Zosyn Vanco 1gm IVPB Q24H 03/25 Vanc Trough: 27.2 Zosyn 2.25gm in 50cc IVPB Q8H 03/25 placed on CPAP 03/26 Extubation, with HiFlo 40% Prophylaxis: DVT - Heparin SC 5,000 u SC Q12H SCDS GI - Protonix 40mg IVP QD discussed with DR. Evin Roberts, PGY1 - Date & Time Date: 03/26/17 Time: 10:15 <Percy Cleary - Last Filed: 03/26/17 15:31> CCU Objective - Vital Signs / Intake & Output Vital Signs (Last 4 hours): Vital Signs Temp Pulse Resp BP Pulse Ox 03/26/17 15:00 85 19 101/45 L 98 03/26/17 14:00 96 H 20 106/50 L 98 03/26/17 13:00 96 H 28 H 119/75 99 03/26/17 12:00 97.5 F L 90 28 H 124/76 100 Intake and Output (Last 8hrs): Intake & Output 03/26/17 03/26/17 03/26/17 06:59 14:59 22:59 Intake Total 1050 930 30 Output Total 375 375 30 Balance 675 555 0 Weight 142 lb 3.2 oz 147 lb 8 oz Intake: Intake, IV Amount 50 350 Left External Jugular 50 Right Distal Port 350 Subclavian Oral 0 0 TPN/PPN 80 30 Other 1000 500 Output: Urine 375 375 30 Urethral (Siu) 375 375 30 Other: # Bowel Movements 1 - Medications Active Medications: Active Medications Generic Name Dose Route Start Last Admin Trade Name Freq PRN Reason Stop Dose Admin Albuterol/Ipratropium 3 ml 03/22/17 02:00 03/26/17 14:04 Duoneb 3 Mg/0.5 Mg (3 Ml) Ud INH 3 ml RQ6 AUGUST Administration Artificial Tears 0 ml 03/24/17 08:30 03/26/17 14:00 Artificial Tears OD 1 drop Q2H AUGUST Administration Carbidopa/Levodopa 1 tab 03/24/17 10:00 03/26/17 13:59 Sinemet 10/100 PO 1 tab QID AUGUST Administration Heparin Sodium (Porcine) 5,000 units 03/25/17 23:45 03/26/17 11:38 Heparin SC 5,000 units Q12H AUGUST Administration Piperacillin Sod/Tazobactam Sod 2.25 gm in 50 mls @ 100 mls/hr 03/21/17 21:00 03/26/17 12:13 Zosyn 2.25 Gm Iv Premix IVPB 100 mls/hr Q8H AUGUST Administration Norepinephrine Bitartrate 8 mg 258 mls @ 7.74 mls/hr 03/22/17 08:36 03/25/17 00:37 / Sodium Chloride IV 0 mcg/min .Q24H PRN 0 mls/hr TITRATE PER MD ORDER Titration Protocol 4 MCG/MIN Vancomycin HCl 1 gm/ Sodium 200 mls @ 133.333 mls/hr 03/23/17 18:00 03/24/17 17:15 Chloride IVPB 133.333 mls/hr Q24H AUGUST Administration Insulin Aspart 0 unit 03/25/17 09:12 03/26/17 11:39 Novolog SC 2 unit Q6 AUGUST Administration Protocol Midazolam HCl 2 mg 03/22/17 18:51 Versed Inj IVP Q4H PRN Agitation Multivitamins/Vitamin C 5 ml 03/22/17 10:00 03/26/17 09:42 Multi-Delyn Liquid GT 5 ml DAILY AUGUST Administration Pantoprazole Sodium 40 mg 03/22/17 10:00 03/26/17 09:42 Protonix Inj IVP 40 mg DAILY AUGUST Administration - Patient Studies Lab Studies: Microbiology Studies 03/21/17 19:40 Blood Culture - Preliminary Blood NO GROWTH AFTER 4 DAYS 03/21/17 19:10 Blood Culture - Preliminary Blood NO GROWTH AFTER 4 DAYS Lab Studies 03/26/17 03/26/17 03/26/17 Range/Units 11:04 08:16 06:49 WBC 9.9 (4.8-10.8) K/uL RBC 3.08 L (4.40-5.90) Mil/uL Hgb 9.4 L (12.0-18.0) g/dL Hct 29.0 L (35.0-51.0) % MCV 94.1 H (80.0-94.0) fL MCH 30.5 (27.0-31.0) pg MCHC 32.4 L (33.0-37.0) g/dL RDW 17.4 H (11.5-14.5) % Plt Count 89 L (130-400) K/uL MPV 13.2 H (7.2-11.7) fL Neut % (Auto) 85.4 H (50.0-75.0) % Lymph % (Auto) 9.5 L (20.0-40.0) % [place] % (Auto) 5.1 (0.0-10.0) % Eos % (Auto) 0.0 (0.0-4.0) % Baso % (Auto) 0.0 (0.0-2.0) % Neut # 8.4 H (1.8-7.0) K/uL Lymph # 0.9 L (1.0-4.3) K/uL [place] # 0.5 (0.0-0.8) K/uL Eos # 0.0 (0.0-0.7) K/uL Baso # 0.0 (0.0-0.2) K/uL Neutrophils % (Manual) 90 H (50-75) % Lymphocytes % (Manual) 6 L (20-40) % Monocytes % (Manual) 4 (0-10) % Platelet Estimate Decreased L (NORMAL) Hypochromasia (manual) Slight Anisocytosis (manual) Slight Puncture Site pCO2 (35-45) mm/Hg pO2 (80-100) mm/Hg HCO3 (21-28) mmol/L ABG pH (7.35-7.45) ABG Total CO2 (22-28) mmol/L ABG O2 Saturation (95-98) % ABG Base Excess (-2.0-3.0) mmol/L ABG Hemoglobin (11.7-17.4) g/dL ABG Carboxyhemoglobin (0.5-1.5) % POC ABG HHb (Measured) (0.0-5.0) % ABG Methemoglobin (0.0-3.0) % Heriberto Test A-a O2 Difference mm/Hg Respiratory Index Hgb O2 Saturation (95.0-98.0) % Vent Mode FiO2 % Pressure Support CPAP Sodium 149 H (132-148) mmol/L Potassium 3.0 L (3.6-5.2) mmol/L Chloride 117 H (98-107) mmol/L Carbon Dioxide 25 (22-30) mmol/L Anion Gap 10 (10-20) BUN 71 H (9-20) mg/dL Creatinine 1.7 H (0.8-1.5) mg/dL Est GFR ( Amer) 46 Est GFR (Non-Af Amer) 38 POC Glucose (mg/dL) 177 H (65-110) mg/dL Random Glucose 186 H (75-110) mg/dL Calcium 6.3 L (8.6-10.4) mg/dl Phosphorus 3.5 (2.5-4.5) mg/dL Magnesium 2.2 (1.6-2.3) mg/dL Total Bilirubin 0.9 (0.2-1.3) mg/dL AST 54 (17-59) U/L ALT 12 L D (21-72) U/L Alkaline Phosphatase 177 H (38-126) U/L Total Protein 7.0 (6.3-8.3) g/dL Albumin 2.6 L (3.5-5.0) g/dL Globulin 4.4 H (2.2-3.9) gm/dL Albumin/Globulin Ratio 0.6 L (1.0-2.1) Random Vancomycin ug/mL 03/26/17 03/26/17 03/26/17 Range/Units 06:49 05:53 05:14 WBC (4.8-10.8) K/uL RBC (4.40-5.90) Mil/uL Hgb (12.0-18.0) g/dL Hct (35.0-51.0) % MCV (80.0-94.0) fL MCH (27.0-31.0) pg MCHC (33.0-37.0) g/dL RDW (11.5-14.5) % Plt Count (130-400) K/uL MPV (7.2-11.7) fL Neut % (Auto) (50.0-75.0) % Lymph % (Auto) (20.0-40.0) % [place] % (Auto) (0.0-10.0) % Eos % (Auto) (0.0-4.0) % Baso % (Auto) (0.0-2.0) % Neut # (1.8-7.0) K/uL Lymph # (1.0-4.3) K/uL [place] # (0.0-0.8) K/uL Eos # (0.0-0.7) K/uL Baso # (0.0-0.2) K/uL Neutrophils % (Manual) (50-75) % Lymphocytes % (Manual) (20-40) % Monocytes % (Manual) (0-10) % Platelet Estimate (NORMAL) Hypochromasia (manual) Anisocytosis (manual) Puncture Site Rr pCO2 32 L (35-45) mm/Hg pO2 113 H (80-100) mm/Hg HCO3 26.3 (21-28) mmol/L ABG pH 7.49 H (7.35-7.45) ABG Total CO2 25.4 (22-28) mmol/L ABG O2 Saturation 99.2 H (95-98) % ABG Base Excess 1.8 (-2.0-3.0) mmol/L ABG Hemoglobin 15.1 (11.7-17.4) g/dL ABG Carboxyhemoglobin 1.3 (0.5-1.5) % POC ABG HHb (Measured) 0.8 (0.0-5.0) % ABG Methemoglobin 1.1 (0.0-3.0) % Heriberto Test Pos A-a O2 Difference 204.0 mm/Hg Respiratory Index 1.8 Hgb O2 Saturation 96.8 (95.0-98.0) % Vent Mode Cpap FiO2 50.0 % Pressure Support 10 CPAP 5 Sodium (132-148) mmol/L Potassium (3.6-5.2) mmol/L Chloride (98-107) mmol/L Carbon Dioxide (22-30) mmol/L Anion Gap (10-20) BUN (9-20) mg/dL Creatinine (0.8-1.5) mg/dL Est GFR ( Amer) Est GFR (Non-Af Amer) POC Glucose (mg/dL) 192 H (65-110) mg/dL Random Glucose (75-110) mg/dL Calcium (8.6-10.4) mg/dl Phosphorus (2.5-4.5) mg/dL Magnesium (1.6-2.3) mg/dL Total Bilirubin (0.2-1.3) mg/dL AST (17-59) U/L ALT (21-72) U/L Alkaline Phosphatase (38-126) U/L Total Protein (6.3-8.3) g/dL Albumin (3.5-5.0) g/dL Globulin (2.2-3.9) gm/dL Albumin/Globulin Ratio (1.0-2.1) Random Vancomycin 19.81 ug/mL 03/25/17 03/25/17 Range/Units 23:43 17:26 WBC (4.8-10.8) K/uL RBC (4.40-5.90) Mil/uL Hgb (12.0-18.0) g/dL Hct (35.0-51.0) % MCV (80.0-94.0) fL MCH (27.0-31.0) pg MCHC (33.0-37.0) g/dL RDW (11.5-14.5) % Plt Count (130-400) K/uL MPV (7.2-11.7) fL Neut % (Auto) (50.0-75.0) % Lymph % (Auto) (20.0-40.0) % [place] % (Auto) (0.0-10.0) % Eos % (Auto) (0.0-4.0) % Baso % (Auto) (0.0-2.0) % Neut # (1.8-7.0) K/uL Lymph # (1.0-4.3) K/uL [place] # (0.0-0.8) K/uL Eos # (0.0-0.7) K/uL Baso # (0.0-0.2) K/uL Neutrophils % (Manual) (50-75) % Lymphocytes % (Manual) (20-40) % Monocytes % (Manual) (0-10) % Platelet Estimate (NORMAL) Hypochromasia (manual) Anisocytosis (manual) Puncture Site pCO2 (35-45) mm/Hg pO2 (80-100) mm/Hg HCO3 (21-28) mmol/L ABG pH (7.35-7.45) ABG Total CO2 (22-28) mmol/L ABG O2 Saturation (95-98) % ABG Base Excess (-2.0-3.0) mmol/L ABG Hemoglobin (11.7-17.4) g/dL ABG Carboxyhemoglobin (0.5-1.5) % POC ABG HHb (Measured) (0.0-5.0) % ABG Methemoglobin (0.0-3.0) % Heriberto Test A-a O2 Difference mm/Hg Respiratory Index Hgb O2 Saturation (95.0-98.0) % Vent Mode FiO2 % Pressure Support CPAP Sodium (132-148) mmol/L Potassium (3.6-5.2) mmol/L Chloride (98-107) mmol/L Carbon Dioxide (22-30) mmol/L Anion Gap (10-20) BUN (9-20) mg/dL Creatinine (0.8-1.5) mg/dL Est GFR ( Amer) Est GFR (Non-Af Amer) POC Glucose (mg/dL) 157 H 389 H (65-110) mg/dL Random Glucose (75-110) mg/dL Calcium (8.6-10.4) mg/dl Phosphorus (2.5-4.5) mg/dL Magnesium (1.6-2.3) mg/dL Total Bilirubin (0.2-1.3) mg/dL AST (17-59) U/L ALT (21-72) U/L Alkaline Phosphatase (38-126) U/L Total Protein (6.3-8.3) g/dL Albumin (3.5-5.0) g/dL Globulin (2.2-3.9) gm/dL Albumin/Globulin Ratio (1.0-2.1) Random Vancomycin ug/mL Laboratory Results - last 24 hr 03/25/17 03/25/17 03/26/17 17:26 23:43 05:14 WBC RBC Hgb Hct MCV MCH MCHC RDW Plt Count MPV Neut % (Auto) Lymph % (Auto) [place] % (Auto) Eos % (Auto) Baso % (Auto) Neut # Lymph # [place] # Eos # Baso # Neutrophils % (Manual) Lymphocytes % (Manual) Monocytes % (Manual) Platelet Estimate Hypochromasia (manual) Anisocytosis (manual) Puncture Site Rr pCO2 32 L pO2 113 H HCO3 26.3 ABG pH 7.49 H ABG Total CO2 25.4 ABG O2 Saturation 99.2 H ABG Base Excess 1.8 ABG Hemoglobin 15.1 ABG Carboxyhemoglobin 1.3 POC ABG HHb (Measured) 0.8 ABG Methemoglobin 1.1 Her[place] Test Pos A-a O2 Difference 204.0 Respiratory Index 1.8 Hgb O2 Saturation 96.8 Vent Mode Cpap FiO2 50.0 Pressure Support 10 CPAP 5 Sodium Potassium Chloride Carbon Dioxide Anion Gap BUN Creatinine Est GFR ( Amer) Est GFR (Non-Af Amer) POC Glucose (mg/dL) 389 H 157 H Random Glucose Calcium Phosphorus Magnesium Total Bilirubin AST ALT Alkaline Phosphatase Total Protein Albumin Globulin Albumin/Globulin Ratio Random Vancomycin 03/26/17 03/26/17 03/26/17 05:53 06:49 06:49 WBC RBC Hgb Hct MCV MCH MCHC RDW Plt Count MPV Neut % (Auto) Lymph % (Auto) [place] % (Auto) Eos % (Auto) Baso % (Auto) Neut # Lymph # [place] # Eos # Baso # Neutrophils % (Manual) Lymphocytes % (Manual) Monocytes % (Manual) Platelet Estimate Hypochromasia (manual) Anisocytosis (manual) Puncture Site pCO2 pO2 HCO3 ABG pH ABG Total CO2 ABG O2 Saturation ABG Base Excess ABG Hemoglobin ABG Carboxyhemoglobin POC ABG HHb (Measured) ABG Methemoglobin Heriberto Test A-a O2 Difference Respiratory Index Hgb O2 Saturation Vent Mode FiO2 Pressure Support CPAP Sodium 149 H Potassium 3.0 L Chloride 117 H Carbon Dioxide 25 Anion Gap 10 BUN 71 H Creatinine 1.7 H Est GFR ( Amer) 46 Est GFR (Non-Af Amer) 38 POC Glucose (mg/dL) 192 H Random Glucose 186 H Calcium 6.3 L Phosphorus 3.5 Magnesium 2.2 Total Bilirubin 0.9 AST 54 ALT 12 L D Alkaline Phosphatase 177 H Total Protein 7.0 Albumin 2.6 L Globulin 4.4 H Albumin/Globulin Ratio 0.6 L Random Vancomycin 19.81 03/26/17 03/26/17 08:16 11:04 WBC 9.9 RBC 3.08 L Hgb 9.4 L Hct 29.0 L MCV 94.1 H MCH 30.5 MCHC 32.4 L RDW 17.4 H Plt Count 89 L MPV 13.2 H Neut % (Auto) 85.4 H Lymph % (Auto) 9.5 L [place] % (Auto) 5.1 Eos % (Auto) 0.0 Baso % (Auto) 0.0 Neut # 8.4 H Lymph # 0.9 L [place] # 0.5 Eos # 0.0 Baso # 0.0 Neutrophils % (Manual) 90 H Lymphocytes % (Manual) 6 L Monocytes % (Manual) 4 Platelet Estimate Decreased L Hypochromasia (manual) Slight Anisocytosis (manual) Slight Puncture Site pCO2 pO2 HCO3 ABG pH ABG Total CO2 ABG O2 Saturation ABG Base Excess ABG Hemoglobin ABG Carboxyhemoglobin POC ABG HHb (Measured) ABG Methemoglobin Heriberto Test A-a O2 Difference Respiratory Index Hgb O2 Saturation Vent Mode FiO2 Pressure Support CPAP Sodium Potassium Chloride Carbon Dioxide Anion Gap BUN Creatinine Est GFR ( Amer) Est GFR (Non-Af Amer) POC Glucose (mg/dL) 177 H Random Glucose Calcium Phosphorus Magnesium Total Bilirubin AST ALT Alkaline Phosphatase Total Protein Albumin Globulin Albumin/Globulin Ratio Random Vancomycin Assessment/Plan (1) Respiratory failure with hypoxia and hypercapnia Current Visit: Yes Status: Acute Priority: High Onset Date: ~03/21/17 Comment: respiratory failure secondary to sepsis Sputum positive for gram-negative and staph aureus On IV antibiotics wean as tolerated. hold feeding On bicarbonate drip reduced to 75 mL Transfuse 1 unit packed RBCs (2) Anemia Current Visit: Yes Status: Acute Comment: anemia secondary to GI bleed Transfuse 1 unit packed RBCs Elevated BUNs secondary to GI bleed (3) CLEMENT (acute kidney injury) Current Visit: Yes Status: Acute Priority: High (4) Septic shock Current Visit: Yes Status: Acute Attending/Attestation - Attestation I have personally seen and examined this patient.: Yes I have fully participated in the care of the patient.: Yes I have reviewed all pertinent clinical information: Yes Notes (Text): 03/26/17 15:30 patient seen and examined in the intensive care unit. Case discussed with staff in the morning. Patient extubated after feeding trial Postextubation no shortness of breath No response to stimuli Afebrile Continue antibiotics Continue feeding
--- NOTE | 2017-03-26 10:23 | RAD ---
HISTORY: follow up COMPARISON: Portable chest 03/25/2017. FINDINGS: Endotracheal tube is unchanged in position as well as right center venous catheter. LUNGS: They limited hazy density inferior right lung zone may reflect chest is chest tissue overlap with limited developing airspace disease not completely exclude the right perihilar region nevertheless. Stable left basilar atelectasis or infiltrate is noted. PLEURA: Borderline right pleural effusion. Smaller pleural effusion unchanged. No pneumothorax bilaterally. CARDIOVASCULAR: Normal. OSSEOUS STRUCTURES: No significant abnormalities. VISUALIZED UPPER ABDOMEN: Normal. OTHER FINDINGS: None. IMPRESSION: Borderline development of right perihilar patchy atelectasis or infiltrate with left basilar atelectasis or infiltrates unchanged. Mild left pleural effusion unchanged. Small right pleural effusion may be developing in the right base laterally.
--- NOTE | 2017-03-26 16:06 | CP.PCM.PN ---
Subjective - Date & Time of Evaluation Date of Evaluation: 03/26/17 Time of Evaluation: 09:00 - Subjective Subjective: seen on rounds in ICU remains obtunded/ sedated opens eyes NAD Objective - Vital Signs/Intake and Output Vital Signs (last 24 hours): Temp Pulse Resp BP Pulse Ox 97.5 F L 85 19 101/45 L 98 03/26/17 12:00 03/26/17 15:00 03/26/17 15:00 03/26/17 15:00 03/26/17 15:00 Intake and Output: 03/26/17 03/26/17 06:59 18:59 Intake Total 1100 960 Output Total 590 405 Balance 510 555 - Medications Medications: Current Medications Albuterol/Ipratropium (Duoneb 3 Mg/0.5 Mg (3 Ml) Ud) 3 ml INH RQ6 [facility] Last Admin: 03/26/17 14:04 Dose: 3 ml Artificial Tears (Artificial Tears) 0 ml OD Q2H [facility] Last Admin: 03/26/17 14:00 Dose: 1 drop Carbidopa/Levodopa (Sinemet 10/) 1 tab PO QID [facility] Last Admin: 03/26/17 13:59 Dose: 1 tab Heparin Sodium (Porcine) (Heparin) 5,000 units SC Q12H [facility] Last Admin: 03/26/17 11:38 Dose: 5,000 units Piperacillin Sod/Tazobactam Sod (Zosyn 2.25 Gm Iv Premix) 2.25 gm in 50 mls @ 100 mls/hr IVPB Q8H [facility] Last Admin: 03/26/17 12:13 Dose: 100 mls/hr Norepinephrine Bitartrate 8 mg (/ Sodium Chloride) 258 mls @ 7.74 mls/hr IV .Q24H PRN; Protocol; 4 MCG/MIN PRN Reason: TITRATE PER MD ORDER Last Titration: 03/25/17 00:37 Dose: 0 mcg/min, 0 mls/hr Vancomycin HCl 1 gm/ Sodium (Chloride) 200 mls @ 133.333 mls/hr IVPB Q24H [facility] Last Admin: 03/24/17 17:15 Dose: 133.333 mls/hr Insulin Aspart (Novolog) 0 unit SC Q6 [facility] PRN Reason: Protocol Last Admin: 03/26/17 11:39 Dose: 2 unit Midazolam HCl (Versed Inj) 2 mg IVP Q4H PRN PRN Reason: Agitation Multivitamins/Vitamin C (Multi-Delyn Liquid) 5 ml GT DAILY [facility] Last Admin: 03/26/17 09:42 Dose: 5 ml Pantoprazole Sodium (Protonix Inj) 40 mg IVP DAILY [facility] Last Admin: 03/26/17 09:42 Dose: 40 mg - Labs Labs: 03/26/17 08:16 03/26/17 06:49 PT 14.1 SECONDS (9.7-12.2) H 03/21/17 19:13 INR 1.3 03/21/17 19:13 APTT 33 SECONDS (21-34) 03/21/17 19:13 - Constitutional Appears: Non-toxic, Chronically Ill - Head Exam Head Exam: NORMOCEPHALIC - Eye Exam Eye Exam: PERRL. absent: Scleral icterus - ENT Exam ENT Exam: Mucous Membranes Dry - Neck Exam Neck Exam: absent: Lymphadenopathy - Respiratory Exam Respiratory Exam: Decreased Breath Sounds - Cardiovascular Exam Cardiovascular Exam: REGULAR RHYTHM - GI/Abdominal Exam GI & Abdominal Exam: Distended - Rectal Exam Rectal Exam: Deferred - Exam Exam: NORMAL INSPECTION - Extremities Exam Extremities Exam: absent: Pedal Edema Assessment and Plan (1) CLEMENT (acute kidney injury) Status: Acute (2) Anemia Status: Acute (3) Respiratory failure with hypoxia and hypercapnia Status: Acute (4) Septic shock Status: Acute (5) Altered mental status Status: Acute (6) CHF (congestive heart failure) Status: Chronic (7) Diabetes mellitus Status: Chronic (8) Hyperlipidemia Status: Chronic (9) Hypertension Status: Chronic
--- NOTE | 2017-03-26 16:26 | CARD ---
APPROVED REPORT EKG Measurement Heart [id number] <Conclusion> Sinus tachycardia Otherwise normal ECG
[2017-03-26] MEDS: Vancomycin 1 GM in Sodium Chloride 0.9% 200 ML IVPB SCH (17:09)
[2017-03-27] MEDS: Aritificial Tears (15ml) OD SCH ×12 (00:30→21:40)
[2017-03-27] MEDS: Albuterol-Ipratrop 3 mg / 0.5 (3 ml) UD INH SCH ×3 (01:27→19:03)
[2017-03-27] MEDS: Piperacill/Tazo 2.25gm in Dex 2.25 GM/50 ML BAG IVPB SCH ×3 (05:05→21:40)
[2017-03-27 06:12] LABS: ABG ALLEN TEST POS; ARTERIAL BLOOD GAS HCO3 24.9 mmol/L (21-28); ARTERIAL BLOOD GAS HEMOGLOBIN 9.5 g/dL (11.7-17.4); ARTERIAL BLOOD GAS O2 SAT 98.9 % (95-98); ARTERIAL BLOOD GAS PCO2 32 mm/Hg (35-45); ARTERIAL BLOOD GAS PH 7.47 (7.35-7.45); ARTERIAL BLOOD GAS PO2 97 mm/Hg (80-100); ARTERIAL BLOOD GAS TCO2 24.3 mmol/L (22-28)
[2017-03-27] MEDS: (Novolog) Insulin Aspart, Recombinant 100 u/ml 10 ml vial SC SCH ×5 (06:16→21:00)
[2017-03-27 07:10] LABS: ALB/GLOB RATIO 0.6 (1.0-2.1); ALBUMIN 2.5 g/dL (3.5-5.0); CALCIUM 6.6 mg/dl (8.6-10.4); MAGNESIUM 2.3 mg/dL (1.6-2.3)
[2017-03-27 07:19] LABS: BASO % 0.1 % (0.0-2.0); EOS % 0.3 % (0.0-4.0); HEMOGLOBIN 8.8 g/dL (12.0-18.0); LYMPH # 0.5 K/uL (1.0-4.3); LYMPH % 4.8 % (20.0-40.0); MEAN CELL VOLUME 95.6 fL (80.0-94.0); MEAN CORPUSCULAR HEMOGLOBIN 29.5 pg (27.0-31.0); MEAN CORPUSCULAR HGB CONC 30.9 g/dL (33.0-37.0); MONO # 0.6 K/uL (0.0-0.8); MONO % 5.6 % (0.0-10.0); NEUT # 8.9 K/uL (1.8-7.0); NEUT % 89.2 % (50.0-75.0); NRBC % 0.1 % (0.0-2.0); PLATELET COUNT 85 K/uL (130-400); RBC 2.98 Mil/uL (4.40-5.90); RED CELL DISTRIBUTION WIDTH 18.1 % (11.5-14.5)
[2017-03-27 08:35] LABS: LYMPHOCYTE 4 % (20-40); MONOCYTE 1 % (0-10); NEUTROPHIL 95 % (50-75); TOTAL CELLS COUNTED 100
[2017-03-27 08:36] LABS: ANISOCYTOSIS SLIGHT; HYPOCHROMIC SLIGHT; PLATELET ESTIMATE DECREASED (NORMAL); POLYCHROMIC SLIGHT
--- NOTE | 2017-03-27 09:14 | RAD ---
Chest x-ray single frontal view History: Shortness of breath. Comparison: 03/26/2017 Findings: Interval removal of an endotracheal tube. Right central venous catheter with tip extending to the cavoatrial junction. Biapical pleural thickening with upper lobe granulomatous changes. Moderate venous congestion with prominent bibasilar airspace opacities as well as a small left pleural effusion. Cardiomegaly. Calcification at the aortic knob. Degenerative changes in the spine with paravertebral osteophytes. Impression: Interval removal of an endotracheal tube. Right central venous catheter with tip extending to the cavoatrial junction. Biapical pleural thickening with upper lobe granulomatous changes. Moderate venous congestion with prominent bibasilar airspace opacities as well as a small left pleural effusion. Cardiomegaly.
[2017-03-27] MEDS: Multiple Vitamins Oral Solution GT SCH (09:15)
[2017-03-27] MEDS: (Lantus) Insulin Glargine, Recombinant SC SCH (09:16)
[2017-03-27] MEDS: Vancomycin 1 GM in Sodium Chloride 0.9% 200 ML IVPB SCH (17:15)
--- NOTE | 2017-03-27 17:58 | CP.PCM.PN ---
Subjective - Date & Time of Evaluation Date of Evaluation: 03/27/17 Time of Evaluation: 08:00 - Subjective Subjective: patient seen and examined Tachypneic Status post extubation Does not respond Afebrile Objective - Vital Signs/Intake and Output Vital Signs (last 24 hours): Temp Pulse Resp BP Pulse Ox 98.3 F 98 H 21 104/55 L 99 03/27/17 16:00 03/27/17 16:00 03/27/17 16:00 03/27/17 16:00 03/27/17 16:00 Intake and Output: 03/27/17 03/27/17 06:59 18:59 Intake Total 1710 1750 Output Total 535 360 Balance 1175 1390 - Medications Medications: Current Medications Albuterol/Ipratropium (Duoneb 3 Mg/0.5 Mg (3 Ml) Ud) 3 ml INH RQ6 [facility] Last Admin: 03/27/17 08:05 Dose: 3 ml Artificial Tears (Artificial Tears) 0 ml OD Q2H [facility] Last Admin: 03/27/17 17:29 Dose: 1 drop Ascorbic Acid (Vitamin C 250 Mg Tab) 250 mg PO DAILY [facility] Last Admin: 03/27/17 11:11 Dose: 250 mg Bisacodyl (Dulcolax) 10 mg [place] HS PRN PRN Reason: Constipation Carbidopa/Levodopa (Sinemet 10/100) 1 tab PO QID [facility] Last Admin: 03/27/17 17:15 Dose: 1 tab Docusate Sodium (Colace) 100 mg PO TID [facility] Last Admin: 03/27/17 17:15 Dose: 100 mg Heparin Sodium (Porcine) (Heparin) 5,000 units SC Q12H [facility] Last Admin: 03/27/17 12:04 Dose: 5,000 units Piperacillin Sod/Tazobactam Sod (Zosyn 2.25 Gm Iv Premix) 2.25 gm in 50 mls @ 100 mls/hr IVPB Q8H [facility] Last Admin: 03/27/17 12:15 Dose: 100 mls/hr Norepinephrine Bitartrate 8 mg (/ Sodium Chloride) 258 mls @ 7.74 mls/hr IV .Q24H PRN; Protocol; 4 MCG/MIN PRN Reason: TITRATE PER MD ORDER Last Titration: 03/25/17 00:37 Dose: 0 mcg/min, 0 mls/hr Vancomycin HCl 1 gm/ Sodium (Chloride) 200 mls @ 133.333 mls/hr IVPB Q24H [facility] Last Admin: 03/27/17 17:15 Dose: 133.333 mls/hr Insulin Aspart (Novolog) 0 unit SC Q4 [facility] PRN Reason: Protocol Last Admin: 03/27/17 16:47 Dose: 6 unit Insulin Glargine (Lantus) 10 unit SC DAILY [facility] Last Admin: 03/27/17 09:16 Dose: 10 units Multivitamins/Vitamin C (Multi-Delyn Liquid) 5 ml GT DAILY [facility] Last Admin: 03/27/17 09:15 Dose: 5 ml Pantoprazole Sodium (Protonix Inj) 40 mg IVP DAILY [facility] Last Admin: 03/27/17 09:15 Dose: 40 mg Senna/Docusate Sodium (Senokot S 50 Mg-8.6 Mg) 1 tab PO DAILY PRN PRN Reason: Constipation - Labs Labs: 03/27/17 06:36 03/27/17 06:36 PT 14.1 SECONDS (9.7-12.2) H 03/21/17 19:13 INR 1.3 03/21/17 19:13 APTT 33 SECONDS (21-34) 03/21/17 19:13 - Head Exam Head Exam: ATRAUMATIC, NORMOCEPHALIC - ENT Exam ENT Exam: Mucous Membranes Moist - Neck Exam Neck Exam: Normal Inspection - Respiratory Exam Respiratory Exam: Decreased Breath Sounds - GI/Abdominal Exam GI & Abdominal Exam: Soft, Normal Bowel Sounds Assessment and Plan (1) Respiratory failure Assessment & Plan: Status post extubation Patient tachypneic continue antibiotics and nebulizer treatmen BiPAP as needed And steroids Status: Acute (2) Anemia Status: Acute (3) CLEMENT (acute kidney injury) Status: Acute (4) Septic shock Status: Acute
--- NOTE | 2017-03-27 19:37 | CP.PCM.PN ---
Subjective - Date & Time of Evaluation Date of Evaluation: 03/27/17 Time of Evaluation: 08:00 - Subjective Subjective: extubated earlier appeards comfortable lethargic NAD afebrile on IV rx for MRSA sputum/ proteus urine Objective - Vital Signs/Intake and Output Vital Signs (last 24 hours): Temp Pulse Resp BP Pulse Ox 98.3 F 104 H 26 H 112/65 99 03/27/17 16:00 03/27/17 19:00 03/27/17 19:00 03/27/17 19:00 03/27/17 19:00 Intake and Output: 03/27/17 03/28/17 18:59 06:59 Intake Total 2020 0 Output Total 430 40 Balance 1590 -40 - Medications Medications: Current Medications Albuterol/Ipratropium (Duoneb 3 Mg/0.5 Mg (3 Ml) Ud) 3 ml INH RQ6 [facility] Last Admin: 03/27/17 08:05 Dose: 3 ml Artificial Tears (Artificial Tears) 0 ml OD Q2H [facility] Last Admin: 03/27/17 17:29 Dose: 1 drop Ascorbic Acid (Vitamin C 250 Mg Tab) 250 mg PO DAILY [facility] Last Admin: 03/27/17 11:11 Dose: 250 mg Bisacodyl (Dulcolax) 10 mg [place] HS PRN PRN Reason: Constipation Last Admin: 03/27/17 18:07 Dose: 10 mg Carbidopa/Levodopa (Sinemet 10/100) 1 tab PO QID [facility] Last Admin: 03/27/17 17:15 Dose: 1 tab Docusate Sodium (Colace) 100 mg PO TID [facility] Last Admin: 03/27/17 17:15 Dose: 100 mg Heparin Sodium (Porcine) (Heparin) 5,000 units SC Q12H [facility] Last Admin: 03/27/17 12:04 Dose: 5,000 units Piperacillin Sod/Tazobactam Sod (Zosyn 2.25 Gm Iv Premix) 2.25 gm in 50 mls @ 100 mls/hr IVPB Q8H [facility] Last Admin: 03/27/17 12:15 Dose: 100 mls/hr Norepinephrine Bitartrate 8 mg (/ Sodium Chloride) 258 mls @ 7.74 mls/hr IV .Q24H PRN; Protocol; 4 MCG/MIN PRN Reason: TITRATE PER MD ORDER Last Titration: 03/25/17 00:37 Dose: 0 mcg/min, 0 mls/hr Vancomycin HCl 1 gm/ Sodium (Chloride) 200 mls @ 133.333 mls/hr IVPB Q24H [facility] Last Admin: 03/27/17 17:15 Dose: 133.333 mls/hr Insulin Aspart (Novolog) 0 unit SC Q4 [facility] PRN Reason: Protocol Last Admin: 03/27/17 16:47 Dose: 6 unit Insulin Glargine (Lantus) 10 unit SC DAILY [facility] Last Admin: 03/27/17 09:16 Dose: 10 units Multivitamins/Vitamin C (Multi-Delyn Liquid) 5 ml GT DAILY [facility] Last Admin: 03/27/17 09:15 Dose: 5 ml Pantoprazole Sodium (Protonix Inj) 40 mg IVP DAILY [facility] Last Admin: 03/27/17 09:15 Dose: 40 mg Senna/Docusate Sodium (Senokot S 50 Mg-8.6 Mg) 1 tab PO DAILY PRN PRN Reason: Constipation - Labs Labs: 03/27/17 06:36 03/27/17 06:36 PT 14.1 SECONDS (9.7-12.2) H 03/21/17 19:13 INR 1.3 03/21/17 19:13 APTT 33 SECONDS (21-34) 03/21/17 19:13 - Constitutional Appears: Non-toxic, Chronically Ill - Head Exam Head Exam: NORMOCEPHALIC - Eye Exam Eye Exam: PERRL - ENT Exam ENT Exam: Mucous Membranes Dry - Neck Exam Neck Exam: absent: Lymphadenopathy - Respiratory Exam Respiratory Exam: Decreased Breath Sounds, Rales, Rhonchi - Cardiovascular Exam Cardiovascular Exam: REGULAR RHYTHM, +S1, +S2 - GI/Abdominal Exam GI & Abdominal Exam: Distended, Soft. absent: Tenderness - Rectal Exam Rectal Exam: Deferred - Exam Exam: NORMAL INSPECTION - Back Exam Back Exam: absent: CVA tenderness (L), CVA tenderness (R) - Neurological Exam Neurological Exam: Altered Neuro motor strength exam: Left Upper Extremity: 3, Right Upper Extremity: 3, Left Lower Extremity: 3, Right Lower Extremity: 3 - Psychiatric Exam Psychiatric exam: Depressed - Skin Skin Exam: Dry Assessment and Plan (1) CLEMENT (acute kidney injury) Status: Acute (2) Anemia Status: Acute (3) Respiratory failure with hypoxia and hypercapnia Status: Acute (4) Septic shock Status: Acute (5) Altered mental status Status: Acute (6) CHF (congestive heart failure) Status: Chronic (7) Diabetes mellitus Status: Chronic (8) Hyperlipidemia Status: Chronic (9) Hypertension Status: Chronic - Assessment and Plan (Free Text) Assessment: extubated earlier appeards comfortable lethargic NAD afebrile on IV rx for MRSA sputum/ proteus urine
--- NOTE | 2017-03-27 20:41 | CP.PCM.PN ---
Subjective - Date & Time of Evaluation Date of Evaluation: 03/27/17 Time of Evaluation: 20:41 Objective - Vital Signs/Intake and Output Vital Signs (last 24 hours): Temp Pulse Resp BP Pulse Ox 98.3 F 104 H 26 H 112/65 99 03/27/17 16:00 03/27/17 19:00 03/27/17 19:00 03/27/17 19:00 03/27/17 19:00 Intake and Output: 03/27/17 03/28/17 18:59 06:59 Intake Total 2020 0 Output Total 430 40 Balance 1590 -40 - Medications Medications: Current Medications Albuterol/Ipratropium (Duoneb 3 Mg/0.5 Mg (3 Ml) Ud) 3 ml INH RQ6 [facility] Last Admin: 03/27/17 08:05 Dose: 3 ml Artificial Tears (Artificial Tears) 0 ml OD Q2H [facility] Last Admin: 03/27/17 17:29 Dose: 1 drop Ascorbic Acid (Vitamin C 250 Mg Tab) 250 mg PO DAILY [facility] Last Admin: 03/27/17 11:11 Dose: 250 mg Bisacodyl (Dulcolax) 10 mg [place] HS PRN PRN Reason: Constipation Last Admin: 03/27/17 18:07 Dose: 10 mg Carbidopa/Levodopa (Sinemet 10/100) 1 tab PO QID [facility] Last Admin: 03/27/17 17:15 Dose: 1 tab Docusate Sodium (Colace) 100 mg PO TID [facility] Last Admin: 03/27/17 17:15 Dose: 100 mg Heparin Sodium (Porcine) (Heparin) 5,000 units SC Q12H [facility] Last Admin: 03/27/17 12:04 Dose: 5,000 units Piperacillin Sod/Tazobactam Sod (Zosyn 2.25 Gm Iv Premix) 2.25 gm in 50 mls @ 100 mls/hr IVPB Q8H [facility] Last Admin: 03/27/17 12:15 Dose: 100 mls/hr Norepinephrine Bitartrate 8 mg (/ Sodium Chloride) 258 mls @ 7.74 mls/hr IV .Q24H PRN; Protocol; 4 MCG/MIN PRN Reason: TITRATE PER MD ORDER Last Titration: 03/25/17 00:37 Dose: 0 mcg/min, 0 mls/hr Vancomycin HCl 1 gm/ Sodium (Chloride) 200 mls @ 133.333 mls/hr IVPB Q24H [facility] Last Admin: 03/27/17 17:15 Dose: 133.333 mls/hr Insulin Aspart (Novolog) 0 unit SC Q4 [facility] PRN Reason: Protocol Last Admin: 03/27/17 16:47 Dose: 6 unit Insulin Glargine (Lantus) 10 unit SC DAILY [facility] Last Admin: 03/27/17 09:16 Dose: 10 units Multivitamins/Vitamin C (Multi-Delyn Liquid) 5 ml GT DAILY [facility] Last Admin: 03/27/17 09:15 Dose: 5 ml Pantoprazole Sodium (Protonix Inj) 40 mg IVP DAILY [facility] Last Admin: 03/27/17 09:15 Dose: 40 mg Senna/Docusate Sodium (Senokot S 50 Mg-8.6 Mg) 1 tab PO DAILY PRN PRN Reason: Constipation - Labs Labs: 03/27/17 06:36 03/27/17 06:36 PT 14.1 SECONDS (9.7-12.2) H 03/21/17 19:13 INR 1.3 03/21/17 19:13 APTT 33 SECONDS (21-34) 03/21/17 19:13
[2017-03-28] MEDS: (Novolog) Insulin Aspart, Recombinant 100 u/ml 10 ml vial SC SCH ×6 (00:05→20:00)
[2017-03-28] MEDS: Aritificial Tears (15ml) OD SCH ×12 (00:05→22:30)
[2017-03-28] MEDS: Albuterol-Ipratrop 3 mg / 0.5 (3 ml) UD INH SCH ×4 (01:36→19:25)
[2017-03-28] MEDS: Piperacill/Tazo 2.25gm in Dex 2.25 GM/50 ML BAG IVPB SCH ×3 (04:10→21:41)
[2017-03-28 06:18] LABS: BASO % 0.1 % (0.0-2.0); EOS # 0.3 K/uL (0.0-0.7); HEMOGLOBIN 8.7 g/dL (12.0-18.0); LYMPH # 0.6 K/uL (1.0-4.3); MEAN CELL VOLUME 94.7 fL (80.0-94.0); MEAN CORPUSCULAR HEMOGLOBIN 30.9 pg (27.0-31.0); MEAN CORPUSCULAR HGB CONC 32.6 g/dL (33.0-37.0); MEAN PLATELET VOLUME 13.4 fL (7.2-11.7); MONO # 0.5 K/uL (0.0-0.8); MONO % 5.2 % (0.0-10.0); NEUT # 8.1 K/uL (1.8-7.0); NEUT % 85.7 % (50.0-75.0); PLATELET COUNT 94 K/uL (130-400); RBC 2.82 Mil/uL (4.40-5.90); RED CELL DISTRIBUTION WIDTH 17.6 % (11.5-14.5); WHITE BLOOD COUNT 9.5 K/uL (4.8-10.8)
[2017-03-28 06:45] LABS: ALB/GLOB RATIO 0.6 (1.0-2.1); ALBUMIN 2.5 g/dL (3.5-5.0); CALCIUM 6.9 mg/dl (8.6-10.4); MAGNESIUM 2.2 mg/dL (1.6-2.3)
--- NOTE | 2017-03-28 07:13 | CP.CCUPN ---
<Alexandrea Roberts - Last Filed: 03/28/17 07:28> CCU Subjective - Physician Review Subjective (Free Text): 03/27/17 15:[address] 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 Abdomen distended. Patient opens eyes to stimulation, patient does not speak. GCS 10T ([id number]). Tube feeds were stopped during the day due to coughing. residuals were elevated. Patient continues to have multiple small bowel movements with laxatives Critical Care Time Spent (in minutes): 35 CCU Objective - Vital Signs / Intake & Output Vital Signs (Last 4 hours): Vital Signs Temp Pulse Resp BP Pulse Ox 03/28/17 07:02 116/65 03/28/17 07:01 104 H 25 H 100 03/28/17 06:01 103 H 32 H 123/65 98 03/28/17 05:02 101 H 25 H 114/64 99 03/28/17 04:02 105 H 29 H 110/57 L 99 03/28/17 04:00 98.4 F Intake and Output (Last 8hrs): Intake & Output 03/27/17 03/28/17 03/28/17 22:59 06:59 14:59 Intake Total 730 1610 70 Output Total 340 410 60 Balance 390 1200 10 Weight 144 lb 8 oz Intake: Intake, IV Amount 250 50 Right Distal Port 200 Subclavian Right Proximal Port 50 50 Subclavian Oral 60 1000 Tube Feeding 420 560 70 Output: Urine 340 410 60 Urethral (Siu) 340 410 60 Other: # Bowel Movements 1 1 - Physical Exam Head: Positive for: Atraumatic, Normocephalic Pupils: Positive for: PERRL Conjunctiva: Positive for: Normal Mouth: Positive for: Moist Mucous Membranes Respiratory/Chest: Positive for: Clear to Auscultation, Decreased Breath Sounds Cardiovascular: Positive for: Regular Rate and Rhythm, Normal S1, S2 Abdomen: Positive for: Normal Bowel Sounds. Negative for: Tenderness, Distention Upper Extremity: Positive for: Normal Inspection, Capillary Refill < 2s Lower Extremity: Positive for: Capillary Refill < 2 s, Other (sacral decubitus) Skin: Positive for: Dry, Other (sacral decubitus ulcer) Psychiatric: Negative for: Alert, Oriented x 3 - Medications Active Medications: Active Medications Generic Name Dose Route Start Last Admin Trade Name Freq PRN Reason Stop Dose Admin Albuterol/Ipratropium 3 ml 03/27/17 08:00 03/28/17 01:36 Duoneb 3 Mg/0.5 Mg (3 Ml) Ud INH 3 ml RQ6 AUGUST Administration Artificial Tears 0 ml 03/24/17 08:30 03/28/17 05:40 Artificial Tears OD 1 drop Q2H AUGUST Administration Ascorbic Acid 250 mg 03/27/17 10:00 03/27/17 11:11 Vitamin C 250 Mg Tab PO 250 mg DAILY AUGUST Administration Bisacodyl 10 mg 03/27/17 08:15 03/27/17 18:07 Dulcolax DC 10 mg HS PRN Administration Constipation Carbidopa/Levodopa 1 tab 03/24/17 10:00 03/27/17 21:35 Sinemet 10/100 PO 1 tab QID AUGUST Administration Docusate Sodium 100 mg 03/27/17 10:00 03/27/17 17:15 Colace PO 100 mg TID AUGUST Administration Heparin Sodium (Porcine) 5,000 units 03/25/17 23:45 03/28/17 00:05 Heparin SC 5,000 units Q12H AUGUST Administration Piperacillin Sod/Tazobactam Sod 2.25 gm in 50 mls @ 100 mls/hr 03/21/17 21:00 03/28/17 04:10 Zosyn 2.25 Gm Iv Premix IVPB 100 mls/hr Q8H AUG[facility] Administration Norepinephrine Bitartrate 8 mg 258 mls @ 7.74 mls/hr 03/22/17 08:36 03/25/17 00:37 / Sodium Chloride IV 0 mcg/min .Q24H PRN 0 mls/hr TITRATE PER MD ORDER Titration Protocol 4 MCG/MIN Vancomycin HCl 1 gm/ Sodium 200 mls @ 133.333 mls/hr 03/23/17 18:00 03/27/17 17:15 Chloride IVPB 133.333 mls/hr Q24H AUGUST Administration Insulin Aspart 0 unit 03/27/17 08:15 03/28/17 04:00 Novolog SC Not Given Q4 [facility] Protocol Insulin Glargine 10 unit 03/27/17 10:00 03/27/17 09:16 Lantus SC 10 units DAILY AUGUST Administration Multivitamins/Vitamin C 5 ml 03/22/17 10:00 03/27/17 09:15 Multi-Delyn Liquid GT 5 ml DAILY AUGUST Administration Pantoprazole Sodium 40 mg 03/22/17 10:00 03/27/17 09:15 Protonix Inj IVP 40 mg DAILY AUGUST Administration Senna/Docusate Sodium 1 tab 03/27/17 08:15 Senokot S 50 Mg-8.6 Mg PO DAILY PRN Constipation - Patient Studies Lab Studies: Microbiology Studies 03/21/17 19:40 Blood Culture - Final Blood NO GROWTH AFTER 5 DAYS Gram Stain - Final TEST NOT PERFORMED Lab Studies 03/28/17 03/28/17 03/28/17 Range/Units 06:11 06:11 04:20 WBC 9.5 (4.8-10.8) K/uL RBC 2.82 L (4.40-5.90) Mil/uL Hgb 8.7 L (12.0-18.0) g/dL Hct 26.7 L (35.0-51.0) % MCV 94.7 H (80.0-94.0) fL MCH 30.9 (27.0-31.0) pg MCHC 32.6 L (33.0-37.0) g/dL RDW 17.6 H (11.5-14.5) % Plt Count 94 L (130-400) K/uL MPV 13.4 H (7.2-11.7) fL Neut % (Auto) 85.7 H (50.0-75.0) % Lymph % (Auto) 6.0 L (20.0-40.0) % Harlan % (Auto) 5.2 (0.0-10.0) % Eos % (Auto) 3.0 (0.0-4.0) % Baso % (Auto) 0.1 (0.0-2.0) % Neut # 8.1 H (1.8-7.0) K/uL Lymph # 0.6 L (1.0-4.3) K/uL Harlan # 0.5 (0.0-0.8) K/uL Eos # 0.3 (0.0-0.7) K/uL Baso # 0.0 (0.0-0.2) K/uL Neutrophils % (Manual) (50-75) % Lymphocytes % (Manual) (20-40) % Monocytes % (Manual) (0-10) % Platelet Estimate (NORMAL) Polychromasia Hypochromasia (manual) Anisocytosis (manual) Sodium 146 (132-148) mmol/L Potassium 3.3 L (3.6-5.2) mmol/L Chloride 117 H (98-107) mmol/L Carbon Dioxide 26 (22-30) mmol/L Anion Gap 6 L (10-20) BUN 47 H (9-20) mg/dL Creatinine 1.4 (0.8-1.5) mg/dL Est GFR ( Amer) 58 Est GFR (Non-Af Amer) 48 POC Glucose (mg/dL) 135 H (65-110) mg/dL Random Glucose 149 H (75-110) mg/dL Calcium 6.9 L (8.6-10.4) mg/dl Phosphorus 2.7 (2.5-4.5) mg/dL Magnesium 2.2 (1.6-2.3) mg/dL Total Bilirubin 0.9 (0.2-1.3) mg/dL AST 58 (17-59) U/L ALT 22 (21-72) U/L Alkaline Phosphatase 192 H (38-126) U/L Total Protein 6.7 (6.3-8.3) g/dL Albumin 2.5 L (3.5-5.0) g/dL Globulin 4.2 H (2.2-3.9) gm/dL Albumin/Globulin Ratio 0.6 L (1.0-2.1) 03/28/17 03/27/17 03/27/17 Range/Units 00:02 20:16 16:28 WBC (4.8-10.8) K/uL RBC (4.40-5.90) Mil/uL Hgb (12.0-18.0) g/dL Hct (35.0-51.0) % MCV (80.0-94.0) fL MCH (27.0-31.0) pg MCHC (33.0-37.0) g/dL RDW (11.5-14.5) % Plt Count (130-400) K/uL MPV (7.2-11.7) fL Neut % (Auto) (50.0-75.0) % Lymph % (Auto) (20.0-40.0) % Harlan % (Auto) (0.0-10.0) % Eos % (Auto) (0.0-4.0) % Baso % (Auto) (0.0-2.0) % Neut # (1.8-7.0) K/uL Lymph # (1.0-4.3) K/uL Harlan # (0.0-0.8) K/uL Eos # (0.0-0.7) K/uL Baso # (0.0-0.2) K/uL Neutrophils % (Manual) (50-75) % Lymphocytes % (Manual) (20-40) % Monocytes % (Manual) (0-10) % Platelet Estimate (NORMAL) Polychromasia Hypochromasia (manual) Anisocytosis (manual) Sodium (132-148) mmol/L Potassium (3.6-5.2) mmol/L Chloride (98-107) mmol/L Carbon Dioxide (22-30) mmol/L Anion Gap (10-20) BUN (9-20) mg/dL Creatinine (0.8-1.5) mg/dL Est GFR ( Amer) Est GFR (Non-Af Amer) POC Glucose (mg/dL) 238 H 307 H 299 H (65-110) mg/dL Random Glucose (75-110) mg/dL Calcium (8.6-10.4) mg/dl Phosphorus (2.5-4.5) mg/dL Magnesium (1.6-2.3) mg/dL Total Bilirubin (0.2-1.3) mg/dL AST (17-59) U/L ALT (21-72) U/L Alkaline Phosphatase (38-126) U/L Total Protein (6.3-8.3) g/dL Albumin (3.5-5.0) g/dL Globulin (2.2-3.9) gm/dL Albumin/Globulin Ratio (1.0-2.1) 03/27/17 03/27/17 03/27/17 Range/Units 11:22 08:24 06:36 WBC (4.8-10.8) K/uL RBC (4.40-5.90) Mil/uL Hgb (12.0-18.0) g/dL Hct (35.0-51.0) % MCV (80.0-94.0) fL MCH (27.0-31.0) pg MCHC (33.0-37.0) g/dL RDW (11.5-14.5) % Plt Count (130-400) K/uL MPV (7.2-11.7) fL Neut % (Auto) (50.0-75.0) % Lymph % (Auto) (20.0-40.0) % Harlan % (Auto) (0.0-10.0) % Eos % (Auto) (0.0-4.0) % Baso % (Auto) (0.0-2.0) % Neut # (1.8-7.0) K/uL Lymph # (1.0-4.3) K/uL Harlan # (0.0-0.8) K/uL Eos # (0.0-0.7) K/uL Baso # (0.0-0.2) K/uL Neutrophils % (Manual) (50-75) % Lymphocytes % (Manual) (20-40) % Monocytes % (Manual) (0-10) % Platelet Estimate (NORMAL) Polychromasia Hypochromasia (manual) Anisocytosis (manual) Sodium 146 (132-148) mmol/L Potassium 3.0 L (3.6-5.2) mmol/L Chloride 115 H (98-107) mmol/L Carbon Dioxide 25 (22-30) mmol/L Anion Gap 9 L (10-20) BUN 58 H (9-20) mg/dL Creatinine 1.6 H (0.8-1.5) mg/dL Est GFR ( Amer) 50 Est GFR (Non-Af Amer) 41 POC Glucose (mg/dL) 247 H 327 H (65-110) mg/dL Random Glucose 383 H (75-110) mg/dL Calcium 6.6 L (8.6-10.4) mg/dl Phosphorus 3.4 (2.5-4.5) mg/dL Magnesium 2.3 (1.6-2.3) mg/dL Total Bilirubin 0.6 (0.2-1.3) mg/dL AST 57 (17-59) U/L ALT 26 (21-72) U/L Alkaline Phosphatase 192 H (38-126) U/L Total Protein 6.6 (6.3-8.3) g/dL Albumin 2.5 L (3.5-5.0) g/dL Globulin 4.1 H (2.2-3.9) gm/dL Albumin/Globulin Ratio 0.6 L (1.0-2.1) 03/27/17 03/27/17 Range/Units 06:36 06:12 WBC 10.0 (4.8-10.8) K/uL RBC 2.98 L (4.40-5.90) Mil/uL Hgb 8.8 L (12.0-18.0) g/dL Hct 28.5 L (35.0-51.0) % MCV 95.6 H (80.0-94.0) fL MCH 29.5 (27.0-31.0) pg MCHC 30.9 L (33.0-37.0) g/dL RDW 18.1 H (11.5-14.5) % Plt Count 85 L (130-400) K/uL MPV 13.0 H (7.2-11.7) fL Neut % (Auto) 89.2 H (50.0-75.0) % Lymph % (Auto) 4.8 L (20.0-40.0) % Harlan % (Auto) 5.6 (0.0-10.0) % Eos % (Auto) 0.3 (0.0-4.0) % Baso % (Auto) 0.1 (0.0-2.0) % Neut # 8.9 H (1.8-7.0) K/uL Lymph # 0.5 L (1.0-4.3) K/uL Harlan # 0.6 (0.0-0.8) K/uL Eos # 0.0 (0.0-0.7) K/uL Baso # 0.0 (0.0-0.2) K/uL Neutrophils % (Manual) 95 H (50-75) % Lymphocytes % (Manual) 4 L (20-40) % Monocytes % (Manual) 1 (0-10) % Platelet Estimate Decreased L (NORMAL) Polychromasia Slight Hypochromasia (manual) Slight Anisocytosis (manual) Slight Sodium (132-148) mmol/L Potassium (3.6-5.2) mmol/L Chloride (98-107) mmol/L Carbon Dioxide (22-30) mmol/L Anion Gap (10-20) BUN (9-20) mg/dL Creatinine (0.8-1.5) mg/dL Est GFR ( Amer) Est GFR (Non-Af Amer) POC Glucose (mg/dL) 360 H (65-110) mg/dL Random Glucose (75-110) mg/dL Calcium (8.6-10.4) mg/dl Phosphorus (2.5-4.5) mg/dL Magnesium (1.6-2.3) mg/dL Total Bilirubin (0.2-1.3) mg/dL AST (17-59) U/L ALT (21-72) U/L Alkaline Phosphatase (38-126) U/L Total Protein (6.3-8.3) g/dL Albumin (3.5-5.0) g/dL Globulin (2.2-3.9) gm/dL Albumin/Globulin Ratio (1.0-2.1) Laboratory Results - last 24 hr 03/27/17 03/27/17 03/27/17 06:12 06:36 06:36 WBC 10.0 RBC 2.98 L Hgb 8.8 L Hct 28.5 L MCV 95.6 H MCH 29.5 MCHC 30.9 L RDW 18.1 H Plt Count 85 L MPV 13.0 H Neut % (Auto) 89.2 H Lymph % (Auto) 4.8 L Harlan % (Auto) 5.6 Eos % (Auto) 0.3 Baso % (Auto) 0.1 Neut # 8.9 H Lymph # 0.5 L Harlan # 0.6 Eos # 0.0 Baso # 0.0 Neutrophils % (Manual) 95 H Lymphocytes % (Manual) 4 L Monocytes % (Manual) 1 Platelet Estimate Decreased L Polychromasia Slight Hypochromasia (manual) Slight Anisocytosis (manual) Slight Sodium 146 Potassium 3.0 L Chloride 115 H Carbon Dioxide 25 Anion Gap 9 L BUN 58 H Creatinine 1.6 H Est GFR ( Amer) 50 Est GFR (Non-Af Amer) 41 POC Glucose (mg/dL) 360 H Random Glucose 383 H Calcium 6.6 L Phosphorus 3.4 Magnesium 2.3 Total Bilirubin 0.6 AST 57 ALT 26 Alkaline Phosphatase 192 H Total Protein 6.6 Albumin 2.5 L Globulin 4.1 H Albumin/Globulin Ratio 0.6 L 03/27/17 03/27/17 03/27/17 08:24 11:22 16:28 WBC RBC Hgb Hct MCV MCH MCHC RDW Plt Count MPV Neut % (Auto) Lymph % (Auto) Harlan % (Auto) Eos % (Auto) Baso % (Auto) Neut # Lymph # Harlan # Eos # Baso # Neutrophils % (Manual) Lymphocytes % (Manual) Monocytes % (Manual) Platelet Estimate Polychromasia Hypochromasia (manual) Anisocytosis (manual) Sodium Potassium Chloride Carbon Dioxide Anion Gap BUN Creatinine Est GFR ( Amer) Est GFR (Non-Af Amer) POC Glucose (mg/dL) 327 H 247 H 299 H Random Glucose Calcium Phosphorus Magnesium Total Bilirubin AST ALT Alkaline Phosphatase Total Protein Albumin Globulin Albumin/Globulin Ratio 03/27/17 03/28/17 03/28/17 20:16 00:02 04:20 WBC RBC Hgb Hct MCV MCH MCHC RDW Plt Count MPV Neut % (Auto) Lymph % (Auto) Harlan % (Auto) Eos % (Auto) Baso % (Auto) Neut # Lymph # Harlan # Eos # Baso # Neutrophils % (Manual) Lymphocytes % (Manual) Monocytes % (Manual) Platelet Estimate Polychromasia Hypochromasia (manual) Anisocytosis (manual) Sodium Potassium Chloride Carbon Dioxide Anion Gap BUN Creatinine Est GFR ( Amer) Est GFR (Non-Af Amer) POC Glucose (mg/dL) 307 H 238 H 135 H Random Glucose Calcium Phosphorus Magnesium Total Bilirubin AST ALT Alkaline Phosphatase Total Protein Albumin Globulin Albumin/Globulin Ratio 03/28/17 03/28/17 06:11 06:11 WBC 9.5 RBC 2.82 L Hgb 8.7 L Hct 26.7 L MCV 94.7 H MCH 30.9 MCHC 32.6 L RDW 17.6 H Plt Count 94 L MPV 13.4 H Neut % (Auto) 85.7 H Lymph % (Auto) 6.0 L Harlan % (Auto) 5.2 Eos % (Auto) 3.0 Baso % (Auto) 0.1 Neut # 8.1 H Lymph # 0.6 L Harlan # 0.5 Eos # 0.3 Baso # 0.0 Neutrophils % (Manual) Lymphocytes % (Manual) Monocytes % (Manual) Platelet Estimate Polychromasia Hypochromasia (manual) Anisocytosis (manual) Sodium 146 Potassium 3.3 L Chloride 117 H Carbon Dioxide 26 Anion Gap 6 L BUN 47 H Creatinine 1.4 Est GFR ( Amer) 58 Est GFR (Non-Af Amer) 48 POC Glucose (mg/dL) Random Glucose 149 H Calcium 6.9 L Phosphorus 2.7 Magnesium 2.2 Total Bilirubin 0.9 AST 58 ALT 22 Alkaline Phosphatase 192 H Total Protein 6.7 Albumin 2.5 L Globulin 4.2 H Albumin/Globulin Ratio 0.6 L Fingerstick Blood Sugar Results: 135 Assessment/Plan - Assessment and Plan (Free Text) Assessment: Assessment: 87yo M. PMHx Parkinson's, Alzheimer's, PEG, hypertension, diabetes, anemia, chronic diastolic CHF, thrombocytopenia, Hematuria. Intubated by EMS for respiratory failure. Neuro: GCS: 10T ([id number]) Sedation: Versed 2mg IVP Q4H PRN Hx Parkinsons Disease: Carbidopa Levodopa 1 tab PO QID [facility] 03/21 CT Head: No intracranial abnormality Pulm: acute respiratory failure, on vent. possible aspiration pneumonia, duonebs , abx. Images: 03/21 CXR: ET tube in appropriate position. No evidence of new significant infiltrate or consolidation in lungs. G tube extends into abdomen. 03/22 CXR: mild venous congestion 03/22 repeat CXR: interval improvement 03/23 CXR: no interval change, small left pleural effusion 03/25 CXR: no interval change, small left pleural effusion 03/26 CXR: no interval, small left pleural effusion Meds: Albuterol/Ipratropium 3cc INH RQ6H Hydrocortisone Sodium Succinate 50 mg IV Q8H [facility] 03/24 05:16 pH 7.53, pCO2 28, pO2 158, pHCO3 26.3, PRVC RR 14, FiO2 50%, TV 450, PEEP 5 03/25 05:16 pH 7.53, pCO2 30, pO2 116, pHCO3 27, CPAP PS 15, FiO2 50%, TV 450, PEEP 5 03/26 05:14 pH 7.49, pCO2 32, pO2 113, pHCO3 26.3, CPAP FiO2 50%, PS 10, PEEP 5 Cardio: Hypotension secondary to septic shock Pressors: Patient is on levophed (last administered 03/25/17) Heme/onc: anemia of chronic disease, leukocytosis from sepsis Monitor H/H Endo: T2DM SISS for coverage (High) Accucheck ACHS GI: PEG tube at 30cc/hr, paused due to high residuals and coughing. Diet: NPO 03/22 CT abdomen/pelvis: NGT in stomach. PEG in stomach in good position. Diffusely fluid-filled mildly prominent small bowel, with no definite transition point. probable enteritis. Retained stool. nonspecific colonic wall thickening 03/22 Gastric Occult Blood Positive Nephro: Acute Renal Failure, improving Hypernatremia improving I/Os: 2685/1415 = 1270 hourly urine output 30-125cc/hr siu for strict I/O's during acute illness 03/21 Urine Culture: proteus mirabilis, sensitive to Zosyn Sodium bicarb 75 meq IV 75cc/hr ID: septic shock due to multiple possible sources (decubitus ulcer, aspiration pneumonia) f/u blood cultures 03/21 sputum culture: S aureus, gram negative rods 03/21 Urine Culture: proteus mirabilis, sensitive to Zosyn Vanco 1gm IVPB Q24H 03/25 Vanc Trough: 27.2 03/27 Vanc Trough: 19.81 Zosyn 2.25gm in 50cc IVPB Q8H 03/25 placed on CPAP 03/26 Extubation, with HiFlo 40% 8L Prophylaxis: DVT - Heparin SC 5,000 u SC Q12H SCDS GI - Protonix 40mg IVP QD discussed with DR. Jaziel Roberts, PGY1 - Date & Time Date: 03/28/17 Time: 07:26 <Genny Sheriff - Last Filed: 03/28/17 18:02> CCU Subjective - Physician Review Critical Care Time Spent (in minutes): 0 (patient remains hemodynamically stable ) CCU Objective - Vital Signs / Intake & Output Vital Signs (Last 4 hours): Vital Signs Pulse Resp BP Pulse Ox 03/28/17 15:01 107 H 19 93/47 L 98 03/28/17 15:00 107 H 28 H 99 03/28/17 14:01 102 H 27 H 109/61 99 03/28/17 14:00 99 H 27 H 98 Intake and Output (Last 8hrs): Intake & Output 03/28/17 03/28/17 03/28/17 06:59 14:59 22:59 Intake Total 1610 810 70 Output Total 410 440 0 Balance 1200 370 70 Weight 144 lb 8 oz Intake: Intake, IV Amount 50 250 Right Proximal Port 50 250 Subclavian Oral 1000 Tube Feeding 560 560 70 Output: Urine 410 440 Urethral (Siu) 410 440 Emesis 0 0 Other: # Bowel Movements 1 0 0 - Medications Active Medications: Active Medications Generic Name Dose Route Start Last Admin Trade Name Freq PRN Reason Stop Dose Admin Albuterol/Ipratropium 3 ml 03/27/17 08:00 03/28/17 14:02 Duoneb 3 Mg/0.5 Mg (3 Ml) Ud INH 3 ml RQ6 AUGUST Administration Artificial Tears 0 ml 03/24/17 08:30 03/28/17 16:30 Artificial Tears OD 1 drop Q2H AUGUST Administration Ascorbic Acid 250 mg 03/27/17 10:00 03/28/17 10:08 Vitamin C 250 Mg Tab PO 250 mg DAILY AUGUST Administration Bisacodyl 10 mg 03/27/17 08:15 03/27/17 18:07 Dulcolax DC 10 mg HS PRN Administration Constipation Carbidopa/Levodopa 1 tab 03/24/17 10:00 03/28/17 17:52 Sinemet 10/100 PO 1 tab QID AUGUST Administration Docusate Sodium 100 mg 03/27/17 10:00 03/28/17 17:47 Colace PO Not Given TID AUGUST Heparin Sodium (Porcine) 5,000 units 03/25/17 23:45 03/28/17 12:30 Heparin SC 5,000 units Q12H AUGUST Administration Piperacillin Sod/Tazobactam Sod 2.25 gm in 50 mls @ 100 mls/hr 03/21/17 21:00 03/28/17 13:30 Zosyn 2.25 Gm Iv Premix IVPB 100 mls/hr Q8H AUGUST Administration Vancomycin HCl 1 gm/ Sodium 200 mls @ 133.333 mls/hr 03/23/17 18:00 03/27/17 17:15 Chloride IVPB 133.333 mls/hr Q24H AUGUST Administration Insulin Aspart 0 unit 03/27/17 08:15 03/28/17 17:00 Novolog SC 8 unit Q4 AUGUST Administration Protocol Insulin Glargine 10 unit 03/27/17 10:00 03/28/17 10:12 Lantus SC 10 units DAILY AUGUST Administration Metoprolol Tartrate 12.5 mg 03/28/17 10:00 03/28/17 17:47 Lopressor PO Not Given BID AUGUST Multivitamins/Vitamin C 5 ml 03/22/17 10:00 03/28/17 10:00 Multi-Delyn Liquid GT 5 ml DAILY AUGUST Administration Pantoprazole Sodium 40 mg 03/22/17 10:00 03/28/17 10:08 Protonix Inj IVP 40 mg DAILY AUGUST Administration Senna/Docusate Sodium 1 tab 03/27/17 08:15 03/28/17 10:08 Senokot S 50 Mg-8.6 Mg PO 1 tab DAILY PRN Administration Constipation - Patient Studies Lab Studies: Lab Studies 03/28/17 03/28/17 03/28/17 Range/Units 11:57 08:05 06:11 WBC (4.8-10.8) K/uL RBC (4.40-5.90) Mil/uL Hgb (12.0-18.0) g/dL Hct (35.0-51.0) % MCV (80.0-94.0) fL MCH (27.0-31.0) pg MCHC (33.0-37.0) g/dL RDW (11.5-14.5) % Plt Count (130-400) K/uL MPV (7.2-11.7) fL Neut % (Auto) (50.0-75.0) % Lymph % (Auto) (20.0-40.0) % Harlan % (Auto) (0.0-10.0) % Eos % (Auto) (0.0-4.0) % Baso % (Auto) (0.0-2.0) % Neut # (1.8-7.0) K/uL Lymph # (1.0-4.3) K/uL Harlan # (0.0-0.8) K/uL Eos # (0.0-0.7) K/uL Baso # (0.0-0.2) K/uL Neutrophils % (Manual) (50-75) % Lymphocytes % (Manual) (20-40) % Monocytes % (Manual) (0-10) % Eosinophils % (Manual) (0-4) % Platelet Estimate (NORMAL) Polychromasia Hypochromasia (manual) Anisocytosis (manual) Sodium 146 (132-148) mmol/L Potassium 3.3 L (3.6-5.2) mmol/L Chloride 117 H (98-107) mmol/L Carbon Dioxide 26 (22-30) mmol/L Anion Gap 6 L (10-20) BUN 47 H (9-20) mg/dL Creatinine 1.4 (0.8-1.5) mg/dL Est GFR ( Amer) 58 Est GFR (Non-Af Amer) 48 POC Glucose (mg/dL) 295 H 225 H (65-110) mg/dL Random Glucose 149 H (75-110) mg/dL Calcium 6.9 L (8.6-10.4) mg/dl Phosphorus 2.7 (2.5-4.5) mg/dL Magnesium 2.2 (1.6-2.3) mg/dL Total Bilirubin 0.9 (0.2-1.3) mg/dL AST 58 (17-59) U/L ALT 22 (21-72) U/L Alkaline Phosphatase 192 H (38-126) U/L Total Protein 6.7 (6.3-8.3) g/dL Albumin 2.5 L (3.5-5.0) g/dL Globulin 4.2 H (2.2-3.9) gm/dL Albumin/Globulin Ratio 0.6 L (1.0-2.1) 03/28/17 03/28/17 03/28/17 Range/Units 06:11 04:20 00:02 WBC 9.5 (4.8-10.8) K/uL RBC 2.82 L (4.40-5.90) Mil/uL Hgb 8.7 L (12.0-18.0) g/dL Hct 26.7 L (35.0-51.0) % MCV 94.7 H (80.0-94.0) fL MCH 30.9 (27.0-31.0) pg MCHC 32.6 L (33.0-37.0) g/dL RDW 17.6 H (11.5-14.5) % Plt Count 94 L (130-400) K/uL MPV 13.4 H (7.2-11.7) fL Neut % (Auto) 85.7 H (50.0-75.0) % Lymph % (Auto) 6.0 L (20.0-40.0) % Harlan % (Auto) 5.2 (0.0-10.0) % Eos % (Auto) 3.0 (0.0-4.0) % Baso % (Auto) 0.1 (0.0-2.0) % Neut # 8.1 H (1.8-7.0) K/uL Lymph # 0.6 L (1.0-4.3) K/uL Harlan # 0.5 (0.0-0.8) K/uL Eos # 0.3 (0.0-0.7) K/uL Baso # 0.0 (0.0-0.2) K/uL Neutrophils % (Manual) 87 H (50-75) % Lymphocytes % (Manual) 4 L (20-40) % Monocytes % (Manual) 7 (0-10) % Eosinophils % (Manual) 2 (0-4) % Platelet Estimate Decreased L (NORMAL) Polychromasia Slight Hypochromasia (manual) Slight Anisocytosis (manual) Slight Sodium (132-148) mmol/L Potassium (3.6-5.2) mmol/L Chloride (98-107) mmol/L Carbon Dioxide (22-30) mmol/L Anion Gap (10-20) BUN (9-20) mg/dL Creatinine (0.8-1.5) mg/dL Est GFR ( Amer) Est GFR (Non-Af Amer) POC Glucose (mg/dL) 135 H 238 H (65-110) mg/dL Random Glucose (75-110) mg/dL Calcium (8.6-10.4) mg/dl Phosphorus (2.5-4.5) mg/dL Magnesium (1.6-2.3) mg/dL Total Bilirubin (0.2-1.3) mg/dL AST (17-59) U/L ALT (21-72) U/L Alkaline Phosphatase (38-126) U/L Total Protein (6.3-8.3) g/dL Albumin (3.5-5.0) g/dL Globulin (2.2-3.9) gm/dL Albumin/Globulin Ratio (1.0-2.1) 03/27/17 Range/Units 20:16 WBC (4.8-10.8) K/uL RBC (4.40-5.90) Mil/uL Hgb (12.0-18.0) g/dL Hct (35.0-51.0) % MCV (80.0-94.0) fL MCH (27.0-31.0) pg MCHC (33.0-37.0) g/dL RDW (11.5-14.5) % Plt Count (130-400) K/uL MPV (7.2-11.7) fL Neut % (Auto) (50.0-75.0) % Lymph % (Auto) (20.0-40.0) % Harlan % (Auto) (0.0-10.0) % Eos % (Auto) (0.0-4.0) % Baso % (Auto) (0.0-2.0) % Neut # (1.8-7.0) K/uL Lymph # (1.0-4.3) K/uL Harlan # (0.0-0.8) K/uL Eos # (0.0-0.7) K/uL Baso # (0.0-0.2) K/uL Neutrophils % (Manual) (50-75) % Lymphocytes % (Manual) (20-40) % Monocytes % (Manual) (0-10) % Eosinophils % (Manual) (0-4) % Platelet Estimate (NORMAL) Polychromasia Hypochromasia (manual) Anisocytosis (manual) Sodium (132-148) mmol/L Potassium (3.6-5.2) mmol/L Chloride (98-107) mmol/L Carbon Dioxide (22-30) mmol/L Anion Gap (10-20) BUN (9-20) mg/dL Creatinine (0.8-1.5) mg/dL Est GFR ( Amer) Est GFR (Non-Af Amer) POC Glucose (mg/dL) 307 H (65-110) mg/dL Random Glucose (75-110) mg/dL Calcium (8.6-10.4) mg/dl Phosphorus (2.5-4.5) mg/dL Magnesium (1.6-2.3) mg/dL Total Bilirubin (0.2-1.3) mg/dL AST (17-59) U/L ALT (21-72) U/L Alkaline Phosphatase (38-126) U/L Total Protein (6.3-8.3) g/dL Albumin (3.5-5.0) g/dL Globulin (2.2-3.9) gm/dL Albumin/Globulin Ratio (1.0-2.1) Laboratory Results - last 24 hr 03/27/17 03/28/17 03/28/17 20:16 00:02 04:20 WBC RBC Hgb Hct MCV MCH MCHC RDW Plt Count MPV Neut % (Auto) Lymph % (Auto) Harlan % (Auto) Eos % (Auto) Baso % (Auto) Neut # Lymph # Harlan # Eos # Baso # Neutrophils % (Manual) Lymphocytes % (Manual) Monocytes % (Manual) Eosinophils % (Manual) Platelet Estimate Polychromasia Hypochromasia (manual) Anisocytosis (manual) Sodium Potassium Chloride Carbon Dioxide Anion Gap BUN Creatinine Est GFR ( Amer) Est GFR (Non-Af Amer) POC Glucose (mg/dL) 307 H 238 H 135 H Random Glucose Calcium Phosphorus Magnesium Total Bilirubin AST ALT Alkaline Phosphatase Total Protein Albumin Globulin Albumin/Globulin Ratio 03/28/17 03/28/17 03/28/17 06:11 06:11 08:05 WBC 9.5 RBC 2.82 L Hgb 8.7 L Hct 26.7 L MCV 94.7 H MCH 30.9 MCHC 32.6 L RDW 17.6 H Plt Count 94 L MPV 13.4 H Neut % (Auto) 85.7 H Lymph % (Auto) 6.0 L Harlan % (Auto) 5.2 Eos % (Auto) 3.0 Baso % (Auto) 0.1 Neut # 8.1 H Lymph # 0.6 L Harlan # 0.5 Eos # 0.3 Baso # 0.0 Neutrophils % (Manual) 87 H Lymphocytes % (Manual) 4 L Monocytes % (Manual) 7 Eosinophils % (Manual) 2 Platelet Estimate Decreased L Polychromasia Slight Hypochromasia (manual) Slight Anisocytosis (manual) Slight Sodium 146 Potassium 3.3 L Chloride 117 H Carbon Dioxide 26 Anion Gap 6 L BUN 47 H Creatinine 1.4 Est GFR ( Amer) 58 Est GFR (Non-Af Amer) 48 POC Glucose (mg/dL) 225 H Random Glucose 149 H Calcium 6.9 L Phosphorus 2.7 Magnesium 2.2 Total Bilirubin 0.9 AST 58 ALT 22 Alkaline Phosphatase 192 H Total Protein 6.7 Albumin 2.5 L Globulin 4.2 H Albumin/Globulin Ratio 0.6 L 03/28/17 11:57 WBC RBC Hgb Hct MCV MCH MCHC RDW Plt Count MPV Neut % (Auto) Lymph % (Auto) Harlan % (Auto) Eos % (Auto) Baso % (Auto) Neut # Lymph # Harlan # Eos # Baso # Neutrophils % (Manual) Lymphocytes % (Manual) Monocytes % (Manual) Eosinophils % (Manual) Platelet Estimate Polychromasia Hypochromasia (manual) Anisocytosis (manual) Sodium Potassium Chloride Carbon Dioxide Anion Gap BUN Creatinine Est GFR ( Amer) Est GFR (Non-Af Amer) POC Glucose (mg/dL) 295 H Random Glucose Calcium Phosphorus Magnesium Total Bilirubin AST ALT Alkaline Phosphatase Total Protein Albumin Globulin Albumin/Globulin Ratio Assessment/Plan (1) Respiratory failure with hypoxia and hypercapnia Current Visit: Yes Status: Acute Priority: High Onset Date: ~03/21/17 Comment: respiratory failure secondary to sepsis Sputum positive for gram-negative and staph aureus On IV antibiotics wean as tolerated. hold feeding On bicarbonate drip reduced to 75 mL Transfuse 1 unit packed RBCs (2) Respiratory failure with hypoxia and hypercapnia Current Visit: Yes Status: Acute Priority: High (3) Hypernatremia Current Visit: Yes Status: Acute Priority: High (4) CLEMENT (acute kidney injury) Current Visit: Yes Status: Acute Priority: High (5) CLEMENT (acute kidney injury) Current Visit: Yes Status: Acute Priority: High (6) Diabetes mellitus Current Visit: No Status: Chronic Priority: Medium (7) Altered mental status Current Visit: No Status: Acute Priority: High - Assessment and Plan (Free Text) Plan: Patient with parkinson's presents to ICU with aspiration PNA. Patient extubated and tolerating aerosol mask. Patient at risk of re-aspiration. -keep HOB >45 -check residuals q4hrs -assure bowel movement -patient requires good pulmonary toilet -remains hemodynamically stable. Addendum: during evening around 6PM, patient startted to cough, peg residuals were 200, peg placed to drain. -cough resovled once PEG drained.
--- NOTE | 2017-03-28 07:29 | CP.CCUPN ---
<Alexandrea Roberts - Last Filed: 03/28/17 13:08> CCU Subjective - Physician Review Subjective (Free Text): 03/28/17 07:[address] 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 GCS 11T (E4V2M5). Patient coughing. low residuals. Patient continues to have a distended abdomen. No acute events overnight. Critical Care Time Spent (in minutes): 35 CCU Objective - Vital Signs / Intake & Output Vital Signs (Last 4 hours): Vital Signs Temp Pulse Resp BP Pulse Ox 03/28/17 07:02 116/65 03/28/17 07:01 104 H 25 H 100 03/28/17 06:01 103 H 32 H 123/65 98 03/28/17 05:02 101 H 25 H 114/64 99 03/28/17 04:02 105 H 29 H 110/57 L 99 03/28/17 04:00 98.4 F Intake and Output (Last 8hrs): Intake & Output 03/27/17 03/28/17 03/28/17 22:59 06:59 14:59 Intake Total 730 1610 70 Output Total 340 410 60 Balance 390 1200 10 Weight 144 lb 8 oz Intake: Intake, IV Amount 250 50 Right Distal Port 200 Subclavian Right Proximal Port 50 50 Subclavian Oral 60 1000 Tube Feeding 420 560 70 Output: Urine 340 410 60 Urethral (Siu) 340 410 60 Other: # Bowel Movements 1 1 - Physical Exam Head: Positive for: Atraumatic, Normocephalic Pupils: Positive for: PERRL Conjunctiva: Positive for: Normal Mouth: Positive for: Moist Mucous Membranes Respiratory/Chest: Positive for: Clear to Auscultation, Decreased Breath Sounds , Other (crackles) Cardiovascular: Positive for: Regular Rate and Rhythm, Normal S1, S2 Abdomen: Positive for: Tenderness, Distention, Normal Bowel Sounds, Ostomy Tubes (PEG). Negative for: Peritoneal Signs Upper Extremity: Positive for: Normal Inspection, Capillary Refill < 2s Lower Extremity: Positive for: Capillary Refill < 2 s, Other (sacral decubitus) Skin: Positive for: Dry, Other (sacral decubitus ulcer) Psychiatric: Negative for: Alert, Oriented x 3 - Medications Active Medications: Active Medications Generic Name Dose Route Start Last Admin Trade Name Freq PRN Reason Stop Dose Admin Albuterol/Ipratropium 3 ml 03/27/17 08:00 03/28/17 01:36 Duoneb 3 Mg/0.5 Mg (3 Ml) Ud INH 3 ml RQ6 [facility] Administration Artificial Tears 0 ml 03/24/17 08:30 03/28/17 05:40 Artificial Tears OD 1 drop Q2H [facility] Administration Ascorbic Acid 250 mg 03/27/17 10:00 03/27/17 11:11 Vitamin C 250 Mg Tab PO 250 mg DAILY [facility] Administration Bisacodyl 10 mg 03/27/17 08:15 03/27/17 18:07 Dulcolax DC 10 mg HS PRN Administration Constipation Carbidopa/Levodopa 1 tab 03/24/17 10:00 03/27/17 21:35 Sinemet 10/100 PO 1 tab QID [facility] Administration Docusate Sodium 100 mg 03/27/17 10:00 03/27/17 17:15 Colace PO 100 mg TID [facility] Administration Heparin Sodium (Porcine) 5,000 units 03/25/17 23:45 03/28/17 00:05 Heparin SC 5,000 units Q12H [facility] Administration Piperacillin Sod/Tazobactam Sod 2.25 gm in 50 mls @ 100 mls/hr 03/21/17 21:00 03/28/17 04:10 Zosyn 2.25 Gm Iv Premix IVPB 100 mls/hr Q8H [facility] Administration Norepinephrine Bitartrate 8 mg 258 mls @ 7.74 mls/hr 03/22/17 08:36 03/25/17 00:37 / Sodium Chloride IV 0 mcg/min .Q24H PRN 0 mls/hr TITRATE PER MD ORDER Titration Protocol 4 MCG/MIN Vancomycin HCl 1 gm/ Sodium 200 mls @ 133.333 mls/hr 03/23/17 18:00 03/27/17 17:15 Chloride IVPB 133.333 mls/hr Q24H [facility] Administration Insulin Aspart 0 unit 03/27/17 08:15 03/28/17 04:00 Novolog SC Not Given Q4 [facility] Protocol Insulin Glargine 10 unit 03/27/17 10:00 03/27/17 09:16 Lantus SC 10 units DAILY [facility] Administration Multivitamins/Vitamin C 5 ml 03/22/17 10:00 03/27/17 09:15 Multi-Delyn Liquid GT 5 ml DAILY [facility] Administration Pantoprazole Sodium 40 mg 03/22/17 10:00 03/27/17 09:15 Protonix Inj IVP 40 mg DAILY [facility] Administration Senna/Docusate Sodium 1 tab 03/27/17 08:15 Senokot S 50 Mg-8.6 Mg PO DAILY PRN Constipation - Patient Studies Lab Studies: Microbiology Studies 03/21/17 19:40 Blood Culture - Final Blood NO GROWTH AFTER 5 DAYS Gram Stain - Final TEST NOT PERFORMED Lab Studies 03/28/17 03/28/17 03/28/17 Range/Units 06:11 06:11 04:20 WBC 9.5 (4.8-10.8) K/uL RBC 2.82 L (4.40-5.90) Mil/uL Hgb 8.7 L (12.0-18.0) g/dL Hct 26.7 L (35.0-51.0) % MCV 94.7 H (80.0-94.0) fL MCH 30.9 (27.0-31.0) pg MCHC 32.6 L (33.0-37.0) g/dL RDW 17.6 H (11.5-14.5) % Plt Count 94 L (130-400) K/uL MPV 13.4 H (7.2-11.7) fL Neut % (Auto) 85.7 H (50.0-75.0) % Lymph % (Auto) 6.0 L (20.0-40.0) % [place] % (Auto) 5.2 (0.0-10.0) % Eos % (Auto) 3.0 (0.0-4.0) % Baso % (Auto) 0.1 (0.0-2.0) % Neut # 8.1 H (1.8-7.0) K/uL Lymph # 0.6 L (1.0-4.3) K/uL [place] # 0.5 (0.0-0.8) K/uL Eos # 0.3 (0.0-0.7) K/uL Baso # 0.0 (0.0-0.2) K/uL Neutrophils % (Manual) (50-75) % Lymphocytes % (Manual) (20-40) % Monocytes % (Manual) (0-10) % Platelet Estimate (NORMAL) Polychromasia Hypochromasia (manual) Anisocytosis (manual) Sodium 146 (132-148) mmol/L Potassium 3.3 L (3.6-5.2) mmol/L Chloride 117 H (98-107) mmol/L Carbon Dioxide 26 (22-30) mmol/L Anion Gap 6 L (10-20) BUN 47 H (9-20) mg/dL Creatinine 1.4 (0.8-1.5) mg/dL Est GFR ( Amer) 58 Est GFR (Non-Af Amer) 48 POC Glucose (mg/dL) 135 H (65-110) mg/dL Random Glucose 149 H (75-110) mg/dL Calcium 6.9 L (8.6-10.4) mg/dl Phosphorus 2.7 (2.5-4.5) mg/dL Magnesium 2.2 (1.6-2.3) mg/dL Total Bilirubin 0.9 (0.2-1.3) mg/dL AST 58 (17-59) U/L ALT 22 (21-72) U/L Alkaline Phosphatase 192 H (38-126) U/L Total Protein 6.7 (6.3-8.3) g/dL Albumin 2.5 L (3.5-5.0) g/dL Globulin 4.2 H (2.2-3.9) gm/dL Albumin/Globulin Ratio 0.6 L (1.0-2.1) 03/28/17 03/27/17 03/27/17 Range/Units 00:02 20:16 16:28 WBC (4.8-10.8) K/uL RBC (4.40-5.90) Mil/uL Hgb (12.0-18.0) g/dL Hct (35.0-51.0) % MCV (80.0-94.0) fL MCH (27.0-31.0) pg MCHC (33.0-37.0) g/dL RDW (11.5-14.5) % Plt Count (130-400) K/uL MPV (7.2-11.7) fL Neut % (Auto) (50.0-75.0) % Lymph % (Auto) (20.0-40.0) % [place] % (Auto) (0.0-10.0) % Eos % (Auto) (0.0-4.0) % Baso % (Auto) (0.0-2.0) % Neut # (1.8-7.0) K/uL Lymph # (1.0-4.3) K/uL [place] # (0.0-0.8) K/uL Eos # (0.0-0.7) K/uL Baso # (0.0-0.2) K/uL Neutrophils % (Manual) (50-75) % Lymphocytes % (Manual) (20-40) % Monocytes % (Manual) (0-10) % Platelet Estimate (NORMAL) Polychromasia Hypochromasia (manual) Anisocytosis (manual) Sodium (132-148) mmol/L Potassium (3.6-5.2) mmol/L Chloride (98-107) mmol/L Carbon Dioxide (22-30) mmol/L Anion Gap (10-20) BUN (9-20) mg/dL Creatinine (0.8-1.5) mg/dL Est GFR ( Amer) Est GFR (Non-Af Amer) POC Glucose (mg/dL) 238 H 307 H 299 H (65-110) mg/dL Random Glucose (75-110) mg/dL Calcium (8.6-10.4) mg/dl Phosphorus (2.5-4.5) mg/dL Magnesium (1.6-2.3) mg/dL Total Bilirubin (0.2-1.3) mg/dL AST (17-59) U/L ALT (21-72) U/L Alkaline Phosphatase (38-126) U/L Total Protein (6.3-8.3) g/dL Albumin (3.5-5.0) g/dL Globulin (2.2-3.9) gm/dL Albumin/Globulin Ratio (1.0-2.1) 03/27/17 03/27/17 03/27/17 Range/Units 11:22 08:24 06:36 WBC (4.8-10.8) K/uL RBC (4.40-5.90) Mil/uL Hgb (12.0-18.0) g/dL Hct (35.0-51.0) % MCV (80.0-94.0) fL MCH (27.0-31.0) pg MCHC (33.0-37.0) g/dL RDW (11.5-14.5) % Plt Count (130-400) K/uL MPV (7.2-11.7) fL Neut % (Auto) (50.0-75.0) % Lymph % (Auto) (20.0-40.0) % [place] % (Auto) (0.0-10.0) % Eos % (Auto) (0.0-4.0) % Baso % (Auto) (0.0-2.0) % Neut # (1.8-7.0) K/uL Lymph # (1.0-4.3) K/uL [place] # (0.0-0.8) K/uL Eos # (0.0-0.7) K/uL Baso # (0.0-0.2) K/uL Neutrophils % (Manual) 95 H (50-75) % Lymphocytes % (Manual) 4 L (20-40) % Monocytes % (Manual) 1 (0-10) % Platelet Estimate Decreased L (NORMAL) Polychromasia Slight Hypochromasia (manual) Slight Anisocytosis (manual) Slight Sodium (132-148) mmol/L Potassium (3.6-5.2) mmol/L Chloride (98-107) mmol/L Carbon Dioxide (22-30) mmol/L Anion Gap (10-20) BUN (9-20) mg/dL Creatinine (0.8-1.5) mg/dL Est GFR ( Amer) Est GFR (Non-Af Amer) POC Glucose (mg/dL) 247 H 327 H (65-110) mg/dL Random Glucose (75-110) mg/dL Calcium (8.6-10.4) mg/dl Phosphorus (2.5-4.5) mg/dL Magnesium (1.6-2.3) mg/dL Total Bilirubin (0.2-1.3) mg/dL AST (17-59) U/L ALT (21-72) U/L Alkaline Phosphatase (38-126) U/L Total Protein (6.3-8.3) g/dL Albumin (3.5-5.0) g/dL Globulin (2.2-3.9) gm/dL Albumin/Globulin Ratio (1.0-2.1) Laboratory Results - last 24 hr 03/27/17 03/27/17 03/27/17 06:36 08:24 11:22 WBC RBC Hgb Hct MCV MCH MCHC RDW Plt Count MPV Neut % (Auto) Lymph % (Auto) [place] % (Auto) Eos % (Auto) Baso % (Auto) Neut # Lymph # [place] # Eos # Baso # Neutrophils % (Manual) 95 H Lymphocytes % (Manual) 4 L Monocytes % (Manual) 1 Platelet Estimate Decreased L Polychromasia Slight Hypochromasia (manual) Slight Anisocytosis (manual) Slight Sodium Potassium Chloride Carbon Dioxide Anion Gap BUN Creatinine Est GFR ( Amer) Est GFR (Non-Af Amer) POC Glucose (mg/dL) 327 H 247 H Random Glucose Calcium Phosphorus Magnesium Total Bilirubin AST ALT Alkaline Phosphatase Total Protein Albumin Globulin Albumin/Globulin Ratio 03/27/17 03/27/17 03/28/17 16:28 20:16 00:02 WBC RBC Hgb Hct MCV MCH MCHC RDW Plt Count MPV Neut % (Auto) Lymph % (Auto) [place] % (Auto) Eos % (Auto) Baso % (Auto) Neut # Lymph # [place] # Eos # Baso # Neutrophils % (Manual) Lymphocytes % (Manual) Monocytes % (Manual) Platelet Estimate Polychromasia Hypochromasia (manual) Anisocytosis (manual) Sodium Potassium Chloride Carbon Dioxide Anion Gap BUN Creatinine Est GFR ( Amer) Est GFR (Non-Af Amer) POC Glucose (mg/dL) 299 H 307 H 238 H Random Glucose Calcium Phosphorus Magnesium Total Bilirubin AST ALT Alkaline Phosphatase Total Protein Albumin Globulin Albumin/Globulin Ratio 03/28/17 03/28/17 03/28/17 04:20 06:11 06:11 WBC 9.5 RBC 2.82 L Hgb 8.7 L Hct 26.7 L MCV 94.7 H MCH 30.9 MCHC 32.6 L RDW 17.6 H Plt Count 94 L MPV 13.4 H Neut % (Auto) 85.7 H Lymph % (Auto) 6.0 L [place] % (Auto) 5.2 Eos % (Auto) 3.0 Baso % (Auto) 0.1 Neut # 8.1 H Lymph # 0.6 L [place] # 0.5 Eos # 0.3 Baso # 0.0 Neutrophils % (Manual) Lymphocytes % (Manual) Monocytes % (Manual) Platelet Estimate Polychromasia Hypochromasia (manual) Anisocytosis (manual) Sodium 146 Potassium 3.3 L Chloride 117 H Carbon Dioxide 26 Anion Gap 6 L BUN 47 H Creatinine 1.4 Est GFR ( Amer) 58 Est GFR (Non-Af Amer) 48 POC Glucose (mg/dL) 135 H Random Glucose 149 H Calcium 6.9 L Phosphorus 2.7 Magnesium 2.2 Total Bilirubin 0.9 AST 58 ALT 22 Alkaline Phosphatase 192 H Total Protein 6.7 Albumin 2.5 L Globulin 4.2 H Albumin/Globulin Ratio 0.6 L Fingerstick Blood Sugar Results: 135 Assessment/Plan - Assessment and Plan (Free Text) Assessment: Assessment: 87yo M. PMHx Parkinson's, Alzheimer's, PEG, hypertension, diabetes, anemia, chronic diastolic CHF, thrombocytopenia, Hematuria. Intubated by EMS for respiratory failure. Extubated 03/26/17 Neuro: GCS: 10T (E4V2M6) Sedation: Versed 2mg IVP Q4H PRN Hx Parkinsons Disease: Carbidopa Levodopa 1 tab PO QID [facility] 03/21 CT Head: No intracranial abnormality Pulm: acute respiratory failure, on vent. possible aspiration pneumonia, duonebs , abx. Images: 03/21 CXR: ET tube in appropriate position. No evidence of new significant infiltrate or consolidation in lungs. G tube extends into abdomen. 03/22 CXR: mild venous congestion 03/22 repeat CXR: interval improvement 03/23 CXR: no interval change, small left pleural effusion 03/25 CXR: no interval change, small left pleural effusion 03/26 CXR: no interval, small left pleural effusion 03/28 CXR: left pleural effusion Meds: Albuterol/Ipratropium 3cc INH RQ6H Hydrocortisone Sodium Succinate 50 mg IV Q8H [facility] 03/24 05:16 pH 7.53, pCO2 28, pO2 158, pHCO3 26.3, PRVC RR 14, FiO2 50%, TV 450, PEEP 5 03/25 05:16 pH 7.53, pCO2 30, pO2 116, pHCO3 27, CPAP PS 15, FiO2 50%, TV 450, PEEP 5 03/26 05:14 pH 7.49, pCO2 32, pO2 113, pHCO3 26.3, CPAP FiO2 50%, PS 10, PEEP 5 Cardio: Hypotension secondary to septic shock Pressors: Patient is on levophed (last administered 03/25/17) Heme/onc: anemia of chronic disease, leukocytosis from sepsis Monitor H/H Endo: T2DM SISS for coverage (High) Accucheck ACHS GI: PEG tube at 30cc/hr Diet: NPO 03/22 CT abdomen/pelvis: NGT in stomach. PEG in stomach in good position. Diffusely fluid-filled mildly prominent small bowel, with no definite transition point. probable enteritis. Retained stool. nonspecific colonic wall thickening 03/22 Gastric Occult Blood Positive Nephro: Acute Renal Failure, improving BUN 88 (128 on admission) Creatinine 1.8 (2.4 on admission) Hypernatremia improving Na 150 (172 on admission) 03/24 Hypokalemia, repleted 03/25 Hypokalemia, repleted 03/26 hypokalemia, repleted I/Os: 2685/1415 = 1270 hourly urine output 30-125cc/hr siu for strict I/O's during acute illness 03/21 Urine Culture: proteus mirabilis, sensitive to Zosyn Sodium bicarb 75 meq IV 75cc/hr ID: septic shock due to multiple possible sources (decubitus ulcer, aspiration pneumonia) f/u blood cultures 03/21 sputum culture: S aureus, gram negative rods 03/21 Urine Culture: proteus mirabilis, sensitive to Zosyn Vanco 1gm IVPB Q24H 03/25 Vanc Trough: 27.2 Zosyn 2.25gm in 50cc IVPB Q8H 03/25 placed on CPAP 03/26 Extubation, with HiFlo 40% Prophylaxis: DVT - Heparin SC 5,000 u SC Q12H [facility] GI - Protonix 40mg IVP QD discussed with DR. Evin Roberts, PGY1 - Date & Time Date: 03/28/17 Time: 09:58 <Genny Sheriff M - Last Filed: 03/29/17 16:09> CCU Objective - Medications Active Medications: Active Medications Generic Name Dose Route Start Last Admin Trade Name Freq PRN Reason Stop Dose Admin Albuterol/Ipratropium 3 ml 03/27/17 08:00 03/29/17 13:56 Duoneb 3 Mg/0.5 Mg (3 Ml) Ud INH 3 ml RQ6 [facility] Administration Artificial Tears 0 ml 03/24/17 08:30 03/29/17 06:25 Artificial Tears OD 1 drop Q2H [facility] Administration Ascorbic Acid 250 mg 03/27/17 10:00 03/29/17 10:16 Vitamin C 250 Mg Tab PO 250 mg DAILY [facility] Administration Bisacodyl 10 mg 03/27/17 08:15 03/27/17 18:07 Dulcolax DC 10 mg HS PRN Administration Constipation Carbidopa/Levodopa 1 tab 03/24/17 10:00 03/29/17 14:13 Sinemet 10/100 PO 1 tab QID [facility] Administration Docusate Sodium 100 mg 03/27/17 10:00 03/29/17 14:10 Colace PO Not Given TID [facility] Piperacillin Sod/Tazobactam Sod 2.25 gm in 50 mls @ 100 mls/hr 03/21/17 21:00 03/29/17 13:00 Zosyn 2.25 Gm Iv Premix IVPB 100 mls/hr Q8H [facility] Administration Vancomycin HCl 1 gm/ Sodium 200 mls @ 133.333 mls/hr 03/23/17 18:00 03/28/17 19:45 Chloride IVPB 133.333 mls/hr Q24H [facility] Administration Insulin Aspart 0 unit 03/27/17 08:15 03/29/17 13:00 Novolog SC 6 unit Q4 [facility] Administration Protocol Insulin Glargine 10 unit 03/27/17 10:00 03/29/17 10:16 Lantus SC 10 units DAILY [facility] Administration Metoprolol Tartrate 12.5 mg 03/28/17 10:00 03/29/17 10:16 Lopressor PO 12.5 mg BID [facility] Administration Multivitamins/Vitamin C 5 ml 03/22/17 10:00 03/29/17 10:16 Multi-Delyn Liquid GT 5 ml DAILY [facility] Administration Pantoprazole Sodium 40 mg 03/22/17 10:00 03/29/17 10:15 Protonix Inj IVP 40 mg DAILY [facility] Administration Senna/Docusate Sodium 1 tab 03/27/17 08:15 03/29/17 10:16 Senokot S 50 Mg-8.6 Mg PO 1 tab DAILY PRN Administration Constipation - Patient Studies Lab Studies: Lab Studies 03/29/17 03/29/17 03/29/17 Range/Units 11:39 07:40 04:37 POC Glucose (mg/dL) 286 H 134 H 275 H (65-110) mg/dL Vancomycin Trough (5.0-10.0) ug/mL 03/28/17 03/28/17 03/28/17 Range/Units 23:34 20:04 18:06 POC Glucose (mg/dL) 276 H 289 H (65-110) mg/dL Vancomycin Trough 15.9 H (5.0-10.0) ug/mL 03/28/17 Range/Units 16:12 POC Glucose (mg/dL) 329 H (65-110) mg/dL Vancomycin Trough (5.0-10.0) ug/mL Laboratory Results - last 24 hr 03/28/17 03/28/17 03/28/17 16:12 18:06 20:04 POC Glucose (mg/dL) 329 H 289 H Vancomycin Trough 15.9 H 03/28/17 03/29/17 03/29/17 23:34 04:37 07:40 POC Glucose (mg/dL) 276 H 275 H 134 H Vancomycin Trough 03/29/17 11:39 POC Glucose (mg/dL) 286 H Vancomycin Trough Assessment/Plan (1) Respiratory failure with hypoxia and hypercapnia Current Visit: Yes Status: Acute Priority: High Onset Date: ~03/21/17 Comment: respiratory failure secondary to sepsis Sputum positive for gram-negative and staph aureus On IV antibiotics wean as tolerated. hold feeding On bicarbonate drip reduced to 75 mL Transfuse 1 unit packed RBCs (2) Respiratory failure with hypoxia and hypercapnia Current Visit: Yes Status: Acute Priority: High (3) Hypernatremia Current Visit: Yes Status: Acute Priority: High (4) CLEMENT (acute kidney injury) Current Visit: Yes Status: Acute Priority: High (5) CLEMENT (acute kidney injury) Current Visit: Yes Status: Acute Priority: High (6) Diabetes mellitus Current Visit: No Status: Chronic Priority: Medium (7) Altered mental status Current Visit: No Status: Acute Priority: High - Assessment and Plan (Free Text) Plan: Patient remains hemodynamically stable. -above resident note reviewed and verified. -continue current management.
[2017-03-28 09:37] LABS: ANISOCYTOSIS SLIGHT; EOSINOPHIL 2 % (0-4); LYMPHOCYTE 4 % (20-40); MONOCYTE 7 % (0-10); NEUTROPHIL 87 % (50-75); PLATELET ESTIMATE DECREASED (NORMAL); TOTAL CELLS COUNTED 100
[2017-03-28 09:38] LABS: HYPOCHROMIC SLIGHT; POLYCHROMIC SLIGHT
[2017-03-28] MEDS: Multiple Vitamins Oral Solution GT SCH (10:00)
[2017-03-28] MEDS: Docusate-Senna 50 mg-8.6 mg Tab PO PRN (10:08)
[2017-03-28] MEDS: (Lantus) Insulin Glargine, Recombinant SC SCH (10:12)
--- NOTE | 2017-03-28 11:05 | CP.PCM.PN ---
Subjective - Date & Time of Evaluation Date of Evaluation: 03/28/17 Time of Evaluation: 10:00 - Subjective Subjective: The patient seen and examined No change in condition No response Tachypneic Afebrile Objective - Vital Signs/Intake and Output Vital Signs (last 24 hours): Temp Pulse Resp BP Pulse Ox 98.5 F 118 H 44 H 105/45 L 99 03/28/17 08:00 03/28/17 10:03 03/28/17 10:03 03/28/17 10:03 03/28/17 10:03 Intake and Output: 03/28/17 03/28/17 06:59 18:59 Intake Total 1930 280 Output Total 600 240 Balance 1330 40 - Medications Medications: Current Medications Albuterol/Ipratropium (Duoneb 3 Mg/0.5 Mg (3 Ml) Ud) 3 ml INH RQ6 [facility] Last Admin: 03/28/17 08:19 Dose: 3 ml Artificial Tears (Artificial Tears) 0 ml OD Q2H [facility] Last Admin: 03/28/17 08:30 Dose: 1 drop Ascorbic Acid (Vitamin C 250 Mg Tab) 250 mg PO DAILY [facility] Last Admin: 03/28/17 10:08 Dose: 250 mg Bisacodyl (Dulcolax) 10 mg [place] HS PRN PRN Reason: Constipation Last Admin: 03/27/17 18:07 Dose: 10 mg Carbidopa/Levodopa (Sinemet 10/100) 1 tab PO QID [facility] Last Admin: 03/28/17 10:25 Dose: 1 tab Docusate Sodium (Colace) 100 mg PO TID [facility] Last Admin: 03/28/17 10:19 Dose: Not Given Heparin Sodium (Porcine) (Heparin) 5,000 units SC Q12H [facility] Last Admin: 03/28/17 00:05 Dose: 5,000 units Piperacillin Sod/Tazobactam Sod (Zosyn 2.25 Gm Iv Premix) 2.25 gm in 50 mls @ 100 mls/hr IVPB Q8H [facility] Last Admin: 03/28/17 04:10 Dose: 100 mls/hr Vancomycin HCl 1 gm/ Sodium (Chloride) 200 mls @ 133.333 mls/hr IVPB Q24H [facility] Last Admin: 03/27/17 17:15 Dose: 133.333 mls/hr Potassium Chloride (Potassium Chloride 20 Meq/100 Ml) 20 meq in 100 mls @ 50 mls/hr IVPB Q2H [facility] Stop: 03/28/17 13:59 Last Admin: 03/28/17 10:09 Dose: 50 mls/hr Insulin Aspart (Novolog) 0 unit SC Q4 [facility] PRN Reason: Protocol Last Admin: 03/28/17 08:22 Dose: 4 unit Insulin Glargine (Lantus) 10 unit SC DAILY [facility] Last Admin: 03/28/17 10:12 Dose: 10 units Metoprolol Tartrate (Lopressor) 12.5 mg PO BID [facility] Last Admin: 03/28/17 10:09 Dose: 12.5 mg Multivitamins/Vitamin C (Multi-Delyn Liquid) 5 ml GT DAILY [facility] Last Admin: 03/27/17 09:15 Dose: 5 ml Pantoprazole Sodium (Protonix Inj) 40 mg IVP DAILY [facility] Last Admin: 03/28/17 10:08 Dose: 40 mg Senna/Docusate Sodium (Senokot S 50 Mg-8.6 Mg) 1 tab PO DAILY PRN PRN Reason: Constipation Last Admin: 03/28/17 10:08 Dose: 1 tab - Labs Labs: 03/28/17 06:11 03/28/17 06:11 PT 14.1 SECONDS (9.7-12.2) H 03/21/17 19:13 INR 1.3 03/21/17 19:13 APTT 33 SECONDS (21-34) 03/21/17 19:13 - Head Exam Head Exam: ATRAUMATIC, NORMOCEPHALIC - ENT Exam ENT Exam: Mucous Membranes Moist - Neck Exam Neck Exam: Normal Inspection - Respiratory Exam Respiratory Exam: Decreased Breath Sounds Assessment and Plan (1) Respiratory failure Status: Acute (2) Anemia Status: Acute (3) CLEMENT (acute kidney injury) Status: Acute (4) Septic shock Status: Acute
--- NOTE | 2017-03-28 16:09 | CP.PCM.PN ---
Subjective - Date & Time of Evaluation Date of Evaluation: 03/28/17 Time of Evaluation: 16:09 Objective - Vital Signs/Intake and Output Vital Signs (last 24 hours): Temp Pulse Resp BP Pulse Ox 98.5 F 107 H 19 93/47 L 98 03/28/17 08:00 03/28/17 15:01 03/28/17 15:01 03/28/17 15:01 03/28/17 15:01 Intake and Output: 03/28/17 03/28/17 06:59 18:59 Intake Total 1930 880 Output Total 600 440 Balance 1330 440 - Medications Medications: Current Medications Albuterol/Ipratropium (Duoneb 3 Mg/0.5 Mg (3 Ml) Ud) 3 ml INH RQ6 [facility] Last Admin: 03/28/17 14:02 Dose: 3 ml Artificial Tears (Artificial Tears) 0 ml OD Q2H [facility] Last Admin: 03/28/17 14:33 Dose: 1 drop Ascorbic Acid (Vitamin C 250 Mg Tab) 250 mg PO DAILY [facility] Last Admin: 03/28/17 10:08 Dose: 250 mg Bisacodyl (Dulcolax) 10 mg [place] HS PRN PRN Reason: Constipation Last Admin: 03/27/17 18:07 Dose: 10 mg Carbidopa/Levodopa (Sinemet 10/100) 1 tab PO QID [facility] Last Admin: 03/28/17 14:25 Dose: 1 tab Docusate Sodium (Colace) 100 mg PO TID [facility] Last Admin: 03/28/17 14:25 Dose: 100 mg Heparin Sodium (Porcine) (Heparin) 5,000 units SC Q12H [facility] Last Admin: 03/28/17 12:30 Dose: 5,000 units Piperacillin Sod/Tazobactam Sod (Zosyn 2.25 Gm Iv Premix) 2.25 gm in 50 mls @ 100 mls/hr IVPB Q8H [facility] Last Admin: 03/28/17 13:30 Dose: 100 mls/hr Vancomycin HCl 1 gm/ Sodium (Chloride) 200 mls @ 133.333 mls/hr IVPB Q24H [facility] Last Admin: 03/27/17 17:15 Dose: 133.333 mls/hr Insulin Aspart (Novolog) 0 unit SC Q4 AUGUST PRN Reason: Protocol Last Admin: 03/28/17 12:00 Dose: 6 unit Insulin Glargine (Lantus) 10 unit SC DAILY [facility] Last Admin: 03/28/17 10:12 Dose: 10 units Metoprolol Tartrate (Lopressor) 12.5 mg PO BID [facility] Last Admin: 03/28/17 10:09 Dose: 12.5 mg Multivitamins/Vitamin C (Multi-Delyn Liquid) 5 ml GT DAILY [facility] Last Admin: 03/27/17 09:15 Dose: 5 ml Pantoprazole Sodium (Protonix Inj) 40 mg IVP DAILY [facility] Last Admin: 03/28/17 10:08 Dose: 40 mg Senna/Docusate Sodium (Senokot S 50 Mg-8.6 Mg) 1 tab PO DAILY PRN PRN Reason: Constipation Last Admin: 03/28/17 10:08 Dose: 1 tab - Labs Labs: 03/28/17 06:11 03/28/17 06:11 PT 14.1 SECONDS (9.7-12.2) H 03/21/17 19:13 INR 1.3 03/21/17 19:13 APTT 33 SECONDS (21-34) 03/21/17 19:13
--- NOTE | 2017-03-28 18:52 | CP.PCM.PN ---
Subjective - Date & Time of Evaluation Date of Evaluation: 03/28/17 Time of Evaluation: 09:00 - Subjective Subjective: weak and bedridden extubated nad Objective - Vital Signs/Intake and Output Vital Signs (last 24 hours): Temp Pulse Resp BP Pulse Ox 98 F 101 H 39 H 95/59 L 96 03/28/17 16:00 03/28/17 18:02 03/28/17 18:02 03/28/17 18:02 03/28/17 18:02 Intake and Output: 03/28/17 03/28/17 06:59 18:59 Intake Total 1930 1090 Output Total 600 440 Balance 1330 650 - Medications Medications: Current Medications Albuterol/Ipratropium (Duoneb 3 Mg/0.5 Mg (3 Ml) Ud) 3 ml INH RQ6 [facility] Last Admin: 03/28/17 14:02 Dose: 3 ml Artificial Tears (Artificial Tears) 0 ml OD Q2H [facility] Last Admin: 03/28/17 16:30 Dose: 1 drop Ascorbic Acid (Vitamin C 250 Mg Tab) 250 mg PO DAILY [facility] Last Admin: 03/28/17 10:08 Dose: 250 mg Bisacodyl (Dulcolax) 10 mg [place] HS PRN PRN Reason: Constipation Last Admin: 03/27/17 18:07 Dose: 10 mg Carbidopa/Levodopa (Sinemet 10/100) 1 tab PO QID [facility] Last Admin: 03/28/17 17:52 Dose: 1 tab Docusate Sodium (Colace) 100 mg PO TID [facility] Last Admin: 03/28/17 17:47 Dose: Not Given Heparin Sodium (Porcine) (Heparin) 5,000 units SC Q12H [facility] Last Admin: 03/28/17 12:30 Dose: 5,000 units Piperacillin Sod/Tazobactam Sod (Zosyn 2.25 Gm Iv Premix) 2.25 gm in 50 mls @ 100 mls/hr IVPB Q8H [facility] Last Admin: 03/28/17 13:30 Dose: 100 mls/hr Vancomycin HCl 1 gm/ Sodium (Chloride) 200 mls @ 133.333 mls/hr IVPB Q24H [facility] Last Admin: 03/27/17 17:15 Dose: 133.333 mls/hr Insulin Aspart (Novolog) 0 unit SC Q4 [facility] PRN Reason: Protocol Last Admin: 03/28/17 17:00 Dose: 8 unit Insulin Glargine (Lantus) 10 unit SC DAILY [facility] Last Admin: 03/28/17 10:12 Dose: 10 units Metoprolol Tartrate (Lopressor) 12.5 mg PO BID [facility] Last Admin: 03/28/17 17:47 Dose: Not Given Multivitamins/Vitamin C (Multi-Delyn Liquid) 5 ml GT DAILY [facility] Last Admin: 03/28/17 10:00 Dose: 5 ml Pantoprazole Sodium (Protonix Inj) 40 mg IVP DAILY [facility] Last Admin: 03/28/17 10:08 Dose: 40 mg Senna/Docusate Sodium (Senokot S 50 Mg-8.6 Mg) 1 tab PO DAILY PRN PRN Reason: Constipation Last Admin: 03/28/17 10:08 Dose: 1 tab - Labs Labs: 03/28/17 06:11 03/28/17 06:11 PT 14.1 SECONDS (9.7-12.2) H 03/21/17 19:13 INR 1.3 03/21/17 19:13 APTT 33 SECONDS (21-34) 03/21/17 19:13 - Constitutional Appears: Confused, Chronically Ill - Head Exam Head Exam: NORMOCEPHALIC - Eye Exam Eye Exam: PERRL. absent: Scleral icterus - ENT Exam ENT Exam: Mucous Membranes Dry - Neck Exam Neck Exam: absent: Lymphadenopathy - Respiratory Exam Respiratory Exam: Decreased Breath Sounds, Prolonged Expiratory Phase, Rhonchi - Cardiovascular Exam Cardiovascular Exam: Tachycardia, REGULAR RHYTHM, +S1, +S2 - GI/Abdominal Exam GI & Abdominal Exam: Distended, Soft. absent: Tenderness - Rectal Exam Rectal Exam: Deferred Assessment and Plan (1) CLEMENT (acute kidney injury) Status: Acute (2) Anemia Status: Acute (3) Respiratory failure with hypoxia and hypercapnia Status: Acute (4) Septic shock Status: Acute (5) Altered mental status Status: Acute (6) CHF (congestive heart failure) Status: Chronic (7) Diabetes mellitus Status: Chronic (8) Hyperlipidemia Status: Chronic (9) Hypertension Status: Chronic
[2017-03-28] MEDS: Vancomycin 1 GM in Sodium Chloride 0.9% 200 ML IVPB SCH (19:45)
[2017-03-29] MEDS: (Novolog) Insulin Aspart, Recombinant 100 u/ml 10 ml vial SC SCH ×6 (00:12→20:15)
[2017-03-29] MEDS: Aritificial Tears (15ml) OD SCH ×11 (00:14→22:30)
[2017-03-29] MEDS: Albuterol-Ipratrop 3 mg / 0.5 (3 ml) UD INH SCH ×4 (02:48→19:10)
[2017-03-29] MEDS: Piperacill/Tazo 2.25gm in Dex 2.25 GM/50 ML BAG IVPB SCH ×3 (04:48→20:11)
[2017-03-29] MEDS: (Lantus) Insulin Glargine, Recombinant SC SCH (10:16)
[2017-03-29] MEDS: Multiple Vitamins Oral Solution GT SCH (10:16)
[2017-03-29] MEDS: Docusate-Senna 50 mg-8.6 mg Tab PO PRN (10:16)
[2017-03-29] MEDS: Vancomycin 1 GM in Sodium Chloride 0.9% 200 ML IVPB SCH (17:21)
--- NOTE | 2017-03-29 17:23 | CP.PCM.PN ---
Subjective - Date & Time of Evaluation Date of Evaluation: 03/29/17 Time of Evaluation: 17:22 Objective - Vital Signs/Intake and Output Vital Signs (last 24 hours): Temp Pulse Resp BP Pulse Ox 97.8 F 98 H 21 114/60 100 03/29/17 16:00 03/29/17 10:00 03/29/17 04:00 03/29/17 04:00 03/29/17 04:00 Intake and Output: 03/29/17 03/29/17 06:59 18:59 Intake Total 70 Output Total 500 Balance -430 - Medications Medications: Current Medications Albuterol/Ipratropium (Duoneb 3 Mg/0.5 Mg (3 Ml) Ud) 3 ml INH RQ6 [facility] Last Admin: 03/29/17 13:56 Dose: 3 ml Artificial Tears (Artificial Tears) 0 ml OD Q2H [facility] Last Admin: 03/29/17 16:30 Dose: 1 drop Ascorbic Acid (Vitamin C 250 Mg Tab) 250 mg PO DAILY [facility] Last Admin: 03/29/17 10:16 Dose: 250 mg Bisacodyl (Dulcolax) 10 mg [place] HS PRN PRN Reason: Constipation Last Admin: 03/27/17 18:07 Dose: 10 mg Carbidopa/Levodopa (Sinemet 10/100) 1 tab PO QID [facility] Last Admin: 03/29/17 14:13 Dose: 1 tab Docusate Sodium (Colace) 100 mg PO TID [facility] Last Admin: 03/29/17 17:17 Dose: Not Given Piperacillin Sod/Tazobactam Sod (Zosyn 2.25 Gm Iv Premix) 2.25 gm in 50 mls @ 100 mls/hr IVPB Q8H [facility] Last Admin: 03/29/17 13:00 Dose: 100 mls/hr Vancomycin HCl 1 gm/ Sodium (Chloride) 200 mls @ 133.333 mls/hr IVPB Q24H [facility] Last Admin: 03/28/17 19:45 Dose: 133.333 mls/hr Insulin Aspart (Novolog) 0 unit SC Q4 [facility] PRN Reason: Protocol Last Admin: 03/29/17 17:00 Dose: 6 unit Insulin Glargine (Lantus) 10 unit SC DAILY [facility] Last Admin: 03/29/17 10:16 Dose: 10 units Metoprolol Tartrate (Lopressor) 12.5 mg PO BID [facility] Last Admin: 03/29/17 10:16 Dose: 12.5 mg Multivitamins/Vitamin C (Multi-Delyn Liquid) 5 ml GT DAILY [facility] Last Admin: 03/29/17 10:16 Dose: 5 ml Pantoprazole Sodium (Protonix Inj) 40 mg IVP DAILY [facility] Last Admin: 03/29/17 10:15 Dose: 40 mg Senna/Docusate Sodium (Senokot S 50 Mg-8.6 Mg) 1 tab PO DAILY PRN PRN Reason: Constipation Last Admin: 03/29/17 10:16 Dose: 1 tab - Labs Labs: 03/28/17 06:11 03/28/17 06:11 PT 14.1 SECONDS (9.7-12.2) H 03/21/17 19:13 INR 1.3 03/21/17 19:13 APTT 33 SECONDS (21-34) 03/21/17 19:13
--- NOTE | 2017-03-29 17:36 | CP.PCM.PN ---
Subjective - Date & Time of Evaluation Date of Evaluation: 03/29/17 Time of Evaluation: 16:30 - Subjective Subjective: the patient seen and examined Stridor and shortness of breath Does not respond Afebrile Status post extubation Objective - Vital Signs/Intake and Output Vital Signs (last 24 hours): Temp Pulse Resp BP Pulse Ox 97.8 F 98 H 21 114/60 100 03/29/17 16:00 03/29/17 10:00 03/29/17 04:00 03/29/17 04:00 03/29/17 04:00 Intake and Output: 03/29/17 03/29/17 06:59 18:59 Intake Total 70 Output Total 500 Balance -430 - Medications Medications: Current Medications Albuterol/Ipratropium (Duoneb 3 Mg/0.5 Mg (3 Ml) Ud) 3 ml INH RQ6 [facility] Last Admin: 03/29/17 13:56 Dose: 3 ml Artificial Tears (Artificial Tears) 0 ml OD Q2H [facility] Last Admin: 03/29/17 16:30 Dose: 1 drop Ascorbic Acid (Vitamin C 250 Mg Tab) 250 mg PO DAILY [facility] Last Admin: 03/29/17 10:16 Dose: 250 mg Bisacodyl (Dulcolax) 10 mg [place] HS PRN PRN Reason: Constipation Last Admin: 03/27/17 18:07 Dose: 10 mg Carbidopa/Levodopa (Sinemet 10/100) 1 tab PO QID [facility] Last Admin: 03/29/17 14:13 Dose: 1 tab Docusate Sodium (Colace) 100 mg PO TID [facility] Last Admin: 03/29/17 17:17 Dose: Not Given Piperacillin Sod/Tazobactam Sod (Zosyn 2.25 Gm Iv Premix) 2.25 gm in 50 mls @ 100 mls/hr IVPB Q8H [facility] Last Admin: 03/29/17 13:00 Dose: 100 mls/hr Vancomycin HCl 1 gm/ Sodium (Chloride) 200 mls @ 133.333 mls/hr IVPB Q24H [facility] Last Admin: 03/28/17 19:45 Dose: 133.333 mls/hr Insulin Aspart (Novolog) 0 unit SC Q4 [facility] PRN Reason: Protocol Last Admin: 03/29/17 17:00 Dose: 6 unit Insulin Glargine (Lantus) 10 unit SC DAILY [facility] Last Admin: 03/29/17 10:16 Dose: 10 units Metoprolol Tartrate (Lopressor) 12.5 mg PO BID [facility] Last Admin: 03/29/17 10:16 Dose: 12.5 mg Multivitamins/Vitamin C (Multi-Delyn Liquid) 5 ml GT DAILY [facility] Last Admin: 03/29/17 10:16 Dose: 5 ml Pantoprazole Sodium (Protonix Inj) 40 mg IVP DAILY [facility] Last Admin: 03/29/17 10:15 Dose: 40 mg Senna/Docusate Sodium (Senokot S 50 Mg-8.6 Mg) 1 tab PO DAILY PRN PRN Reason: Constipation Last Admin: 03/29/17 10:16 Dose: 1 tab - Labs Labs: 03/28/17 06:11 03/28/17 06:11 PT 14.1 SECONDS (9.7-12.2) H 03/21/17 19:13 INR 1.3 03/21/17 19:13 APTT 33 SECONDS (21-34) 03/21/17 19:13 - Head Exam Head Exam: ATRAUMATIC, NORMOCEPHALIC - ENT Exam ENT Exam: Mucous Membranes Moist - Neck Exam Neck Exam: Normal Inspection - Respiratory Exam Respiratory Exam: Stridor - Cardiovascular Exam Cardiovascular Exam: REGULAR RHYTHM - GI/Abdominal Exam GI & Abdominal Exam: Soft, Normal Bowel Sounds Assessment and Plan (1) Respiratory failure Assessment & Plan: IV steroids and Nebulizer treatment Consider BiPAP Patient is a full code Status: Acute (2) Anemia Status: Acute (3) CLEMENT (acute kidney injury) Status: Acute (4) Septic shock Status: Acute
[2017-03-29] MEDS: MethylPREDNISolone 40 mg Vial IV SCH (18:25)
[2017-03-30] MEDS: (Novolog) Insulin Aspart, Recombinant 100 u/ml 10 ml vial SC SCH ×7 (00:02→23:58)
[2017-03-30] MEDS: MethylPREDNISolone 40 mg Vial IV SCH ×5 (00:06→23:57)
[2017-03-30] MEDS: Aritificial Tears (15ml) OD SCH ×12 (00:30→22:30)
[2017-03-30] MEDS: Albuterol-Ipratrop 3 mg / 0.5 (3 ml) UD INH SCH ×4 (01:22→19:39)
[2017-03-30] MEDS: Piperacill/Tazo 2.25gm in Dex 2.25 GM/50 ML BAG IVPB SCH ×3 (05:37→20:40)
[2017-03-30 07:59] LABS: C DIFF TOXIN A B NEGATIVE (NEGATIVE)
[2017-03-30 08:10] LABS: FECAL LEUKOCYTES NEGATIVE (NEGATIVE)
[2017-03-30] MEDS: (Lantus) Insulin Glargine, Recombinant SC SCH (10:08)
[2017-03-30] MEDS: Multiple Vitamins Oral Solution GT SCH (10:08)
[2017-03-30] MEDS: Docusate-Senna 50 mg-8.6 mg Tab PO PRN (10:09)
--- NOTE | 2017-03-30 13:02 | CP.PCM.PN ---
Subjective - Date & Time of Evaluation Date of Evaluation: 03/30/17 Time of Evaluation: 13:02 Objective - Vital Signs/Intake and Output Vital Signs (last 24 hours): Temp Pulse Resp BP Pulse Ox 98 F 106 H 22 122/62 98 03/30/17 04:00 03/30/17 04:00 03/30/17 04:00 03/30/17 04:00 03/30/17 04:00 Intake and Output: 03/30/17 03/30/17 06:59 18:59 Intake Total 630 1220 Output Total 250 250 Balance 380 970 - Medications Medications: Current Medications Albuterol/Ipratropium (Duoneb 3 Mg/0.5 Mg (3 Ml) Ud) 3 ml INH RQ6 [facility] Last Admin: 03/30/17 09:07 Dose: 3 ml Artificial Tears (Artificial Tears) 0 ml OD Q2H [facility] Last Admin: 03/30/17 12:35 Dose: 1 drop Ascorbic Acid (Vitamin C 250 Mg Tab) 250 mg PO DAILY [facility] Last Admin: 03/30/17 10:09 Dose: 250 mg Bisacodyl (Dulcolax) 10 mg [place] HS PRN PRN Reason: Constipation Last Admin: 03/27/17 18:07 Dose: 10 mg Carbidopa/Levodopa (Sinemet 10/100) 1 tab PO QID [facility] Last Admin: 03/30/17 10:09 Dose: 1 tab Docusate Sodium (Colace) 100 mg PO TID [facility] Last Admin: 03/30/17 10:10 Dose: Not Given Heparin Sodium (Porcine) (Heparin) 5,000 units SC Q12 [facility] Last Admin: 03/30/17 10:07 Dose: 5,000 units Piperacillin Sod/Tazobactam Sod (Zosyn 2.25 Gm Iv Premix) 2.25 gm in 50 mls @ 100 mls/hr IVPB Q8H [facility] Last Admin: 03/30/17 12:34 Dose: 100 mls/hr Vancomycin HCl 1 gm/ Sodium (Chloride) 200 mls @ 133.333 mls/hr IVPB Q24H [facility] Last Admin: 03/29/17 17:21 Dose: 133.333 mls/hr Insulin Aspart (Novolog) 0 unit SC Q4 [facility] PRN Reason: Protocol Last Admin: 03/30/17 12:35 Dose: 6 unit Insulin Glargine (Lantus) 10 unit SC DAILY [facility] Last Admin: 03/30/17 10:08 Dose: 10 units Methylprednisolone (Solu-Medrol) 40 mg IV Q6 [facility] Last Admin: 03/30/17 12:33 Dose: 40 mg Metoprolol Tartrate (Lopressor) 12.5 mg PO BID [facility] Last Admin: 03/30/17 10:07 Dose: 12.5 mg Multivitamins/Vitamin C (Multi-Delyn Liquid) 5 ml GT DAILY [facility] Last Admin: 03/30/17 10:08 Dose: 5 ml Pantoprazole Sodium (Protonix Inj) 40 mg IVP DAILY [facility] Last Admin: 03/30/17 10:07 Dose: 40 mg Senna/Docusate Sodium (Senokot S 50 Mg-8.6 Mg) 1 tab PO DAILY PRN PRN Reason: Constipation Last Admin: 03/30/17 10:09 Dose: 1 tab - Labs Labs: 03/28/17 06:11 03/28/17 06:11 PT 14.1 SECONDS (9.7-12.2) H 03/21/17 19:13 INR 1.3 03/21/17 19:13 APTT 33 SECONDS (21-34) 03/21/17 19:13
--- NOTE | 2017-03-30 14:48 | CP.PCM.PN ---
Subjective - Date & Time of Evaluation Date of Evaluation: 03/30/17 Time of Evaluation: 10:00 - Subjective Subjective: afeb arousable extubated nad iv rx in progress Objective - Vital Signs/Intake and Output Vital Signs (last 24 hours): Temp Pulse Resp BP Pulse Ox 97.4 F L 106 H 18 113/55 L 98 03/30/17 12:00 03/30/17 04:00 03/30/17 12:00 03/30/17 12:00 03/30/17 12:00 Intake and Output: 03/30/17 03/30/17 06:59 18:59 Intake Total 630 1710 Output Total 250 570 Balance 380 1140 - Medications Medications: Current Medications Albuterol/Ipratropium (Duoneb 3 Mg/0.5 Mg (3 Ml) Ud) 3 ml INH RQ6 [facility] Last Admin: 03/30/17 14:07 Dose: 3 ml Artificial Tears (Artificial Tears) 0 ml OD Q2H [facility] Last Admin: 03/30/17 12:35 Dose: 1 drop Ascorbic Acid (Vitamin C 250 Mg Tab) 250 mg PO DAILY [facility] Last Admin: 03/30/17 10:09 Dose: 250 mg Bisacodyl (Dulcolax) 10 mg [place] HS PRN PRN Reason: Constipation Last Admin: 03/27/17 18:07 Dose: 10 mg Carbidopa/Levodopa (Sinemet 10/100) 1 tab PO QID [facility] Last Admin: 03/30/17 10:09 Dose: 1 tab Docusate Sodium (Colace) 100 mg PO TID [facility] Last Admin: 03/30/17 10:10 Dose: Not Given Heparin Sodium (Porcine) (Heparin) 5,000 units SC Q12 [facility] Last Admin: 03/30/17 10:07 Dose: 5,000 units Piperacillin Sod/Tazobactam Sod (Zosyn 2.25 Gm Iv Premix) 2.25 gm in 50 mls @ 100 mls/hr IVPB Q8H [facility] Last Admin: 03/30/17 12:34 Dose: 100 mls/hr Vancomycin HCl 1 gm/ Sodium (Chloride) 200 mls @ 133.333 mls/hr IVPB Q24H [facility] Last Admin: 03/29/17 17:21 Dose: 133.333 mls/hr Insulin Aspart (Novolog) 0 unit SC Q4 [facility] PRN Reason: Protocol Last Admin: 03/30/17 12:35 Dose: 6 unit Insulin Glargine (Lantus) 10 unit SC DAILY [facility] Last Admin: 03/30/17 10:08 Dose: 10 units Methylprednisolone (Solu-Medrol) 40 mg IV Q6 [facility] Last Admin: 03/30/17 12:33 Dose: 40 mg Metoprolol Tartrate (Lopressor) 12.5 mg PO BID [facility] Last Admin: 03/30/17 10:07 Dose: 12.5 mg Multivitamins/Vitamin C (Multi-Delyn Liquid) 5 ml GT DAILY [facility] Last Admin: 03/30/17 10:08 Dose: 5 ml Pantoprazole Sodium (Protonix Inj) 40 mg IVP DAILY [facility] Last Admin: 03/30/17 10:07 Dose: 40 mg Senna/Docusate Sodium (Senokot S 50 Mg-8.6 Mg) 1 tab PO DAILY PRN PRN Reason: Constipation Last Admin: 03/30/17 10:09 Dose: 1 tab - Labs Labs: 03/28/17 06:11 03/28/17 06:11 PT 14.1 SECONDS (9.7-12.2) H 03/21/17 19:13 INR 1.3 03/21/17 19:13 APTT 33 SECONDS (21-34) 03/21/17 19:13 - Constitutional Appears: Non-toxic, Chronically Ill - Head Exam Head Exam: NORMOCEPHALIC - Eye Exam Eye Exam: PERRL. absent: Scleral icterus - ENT Exam ENT Exam: Mucous Membranes Dry - Neck Exam Neck Exam: absent: Lymphadenopathy - Respiratory Exam Respiratory Exam: Decreased Breath Sounds, Clear to Ausculation Bilateral - Cardiovascular Exam Cardiovascular Exam: REGULAR RHYTHM, +S1, +S2 - GI/Abdominal Exam GI & Abdominal Exam: Distended, Soft. absent: Tenderness - Rectal Exam Rectal Exam: Deferred - Exam Exam: NORMAL INSPECTION - Extremities Exam Extremities Exam: Pedal Edema - Back Exam Back Exam: absent: CVA tenderness (L), CVA tenderness (R) - Neurological Exam Neurological Exam: Alert, Awake, Oriented x3 - Psychiatric Exam Psychiatric exam: Depressed - Skin Skin Exam: Dry Assessment and Plan (1) CLEMENT (acute kidney injury) Status: Acute (2) Anemia Status: Acute (3) Respiratory failure with hypoxia and hypercapnia Status: Acute (4) Septic shock Status: Acute (5) Altered mental status Status: Acute (6) CHF (congestive heart failure) Status: Chronic (7) Diabetes mellitus Status: Chronic (8) Hyperlipidemia Status: Chronic (9) Hypertension Status: Chronic
[2017-03-30] MEDS: Vancomycin 1 GM in Sodium Chloride 0.9% 200 ML IVPB SCH (17:34)
[2017-03-31] MEDS: Aritificial Tears (15ml) OD SCH ×12 (00:30→21:43)
[2017-03-31] MEDS: Albuterol-Ipratrop 3 mg / 0.5 (3 ml) UD INH SCH ×4 (01:18→19:17)
[2017-03-31] MEDS: (Novolog) Insulin Aspart, Recombinant 100 u/ml 10 ml vial SC SCH ×5 (04:55→20:55)
[2017-03-31] MEDS: Piperacill/Tazo 2.25gm in Dex 2.25 GM/50 ML BAG IVPB SCH ×3 (05:01→20:51)
[2017-03-31] MEDS: MethylPREDNISolone 40 mg Vial IV SCH ×3 (05:10→18:24)
[2017-03-31 06:34] LABS: HEMOGLOBIN 8.6 g/dL (12.0-18.0); MEAN CELL VOLUME 97.3 fL (80.0-94.0); MEAN CORPUSCULAR HEMOGLOBIN 30.9 pg (27.0-31.0); MEAN CORPUSCULAR HGB CONC 31.8 g/dL (33.0-37.0); MEAN PLATELET VOLUME 12.3 fL (7.2-11.7); RBC 2.8 Mil/uL (4.40-5.90); RED CELL DISTRIBUTION WIDTH 18.7 % (11.5-14.5); WHITE BLOOD COUNT 16.4 K/uL (4.8-10.8)
[2017-03-31 06:56] LABS: ALB/GLOB RATIO 0.6 (1.0-2.1); ALBUMIN 2.6 g/dL (3.5-5.0); ALT/SGPT 25 U/L (21-72); AST/SGOT 42 U/L (17-59); BLOOD UREA NITROGEN 54 mg/dL (9-20); CALCIUM 7.4 mg/dl (8.6-10.4); GFR AFRICAN-AMERICAN > 60; GFR NON-AFRICAN AMERICAN 52
[2017-03-31] MEDS: (Lantus) Insulin Glargine, Recombinant SC SCH (10:14)
[2017-03-31] MEDS: Multiple Vitamins Oral Solution GT SCH (10:15)
--- NOTE | 2017-03-31 13:57 | CP.PCM.PN ---
Subjective - Date & Time of Evaluation Date of Evaluation: 03/31/17 Time of Evaluation: 13:57 Objective - Vital Signs/Intake and Output Vital Signs (last 24 hours): Temp Pulse Resp BP Pulse Ox 98.4 F 95 H 20 120/54 L 99 03/31/17 12:00 03/31/17 12:00 03/31/17 12:00 03/31/17 12:00 03/31/17 12:00 Intake and Output: 03/31/17 03/31/17 06:59 18:59 Intake Total 1920 Output Total 550 Balance 1370 - Medications Medications: Current Medications Albuterol/Ipratropium (Duoneb 3 Mg/0.5 Mg (3 Ml) Ud) 3 ml INH RQ6 [facility] Last Admin: 03/31/17 13:15 Dose: 3 ml Artificial Tears (Artificial Tears) 0 ml OD Q2H [facility] Last Admin: 03/31/17 12:30 Dose: 1 drop Ascorbic Acid (Vitamin C 250 Mg Tab) 250 mg PO DAILY [facility] Last Admin: 03/31/17 10:15 Dose: 250 mg Bisacodyl (Dulcolax) 10 mg [place] HS PRN PRN Reason: Constipation Last Admin: 03/27/17 18:07 Dose: 10 mg Carbidopa/Levodopa (Sinemet 10/100) 1 tab PO QID [facility] Last Admin: 03/31/17 13:12 Dose: 1 tab Docusate Sodium (Colace) 100 mg PO TID [facility] Last Admin: 03/31/17 13:12 Dose: 100 mg Heparin Sodium (Porcine) (Heparin) 5,000 units SC Q12 [facility] Last Admin: 03/31/17 10:14 Dose: 5,000 units Piperacillin Sod/Tazobactam Sod (Zosyn 2.25 Gm Iv Premix) 2.25 gm in 50 mls @ 100 mls/hr IVPB Q8H [facility] Last Admin: 03/31/17 13:00 Dose: 100 mls/hr Vancomycin HCl 1 gm/ Sodium (Chloride) 200 mls @ 133.333 mls/hr IVPB Q24H [facility] Last Admin: 03/30/17 17:34 Dose: 133.333 mls/hr Insulin Aspart (Novolog) 0 unit SC Q4 [facility] PRN Reason: Protocol Last Admin: 03/31/17 13:13 Dose: 8 unit Insulin Glargine (Lantus) 10 unit SC DAILY [facility] Last Admin: 03/31/17 10:14 Dose: 10 units Methylprednisolone (Solu-Medrol) 40 mg IV Q6 [facility] Last Admin: 03/31/17 13:12 Dose: 40 mg Metoprolol Tartrate (Lopressor) 12.5 mg PO BID [facility] Last Admin: 03/31/17 10:14 Dose: 12.5 mg Multivitamins/Vitamin C (Multi-Delyn Liquid) 5 ml GT DAILY [facility] Last Admin: 03/31/17 10:15 Dose: 5 ml Pantoprazole Sodium (Protonix Inj) 40 mg IVP DAILY [facility] Last Admin: 03/31/17 10:14 Dose: 40 mg Senna/Docusate Sodium (Senokot S 50 Mg-8.6 Mg) 1 tab PO DAILY PRN PRN Reason: Constipation Last Admin: 03/30/17 10:09 Dose: 1 tab - Labs Labs: 03/31/17 06:25 03/31/17 06:25 PT 14.1 SECONDS (9.7-12.2) H 03/21/17 19:13 INR 1.3 03/21/17 19:13 APTT 33 SECONDS (21-34) 03/21/17 19:13
--- NOTE | 2017-03-31 15:45 | CP.PCM.PCO ---
Physician Communication Note - Physician Communication Note Physician Communication Note: Family meeting between 8 am and 9 am
[2017-03-31] MEDS: Vancomycin 1 GM in Sodium Chloride 0.9% 200 ML IVPB SCH (18:00)
--- NOTE | 2017-03-31 18:19 | CP.PCM.PN ---
Subjective - Date & Time of Evaluation Date of Evaluation: 03/31/17 Time of Evaluation: 10:00 - Subjective Subjective: patient seen and examined Shortness of breath and stridor much better Does not follow commands Afebrile Objective - Vital Signs/Intake and Output Vital Signs (last 24 hours): Temp Pulse Resp BP Pulse Ox 98.2 F 96 H 20 136/74 98 03/31/17 16:00 03/31/17 16:00 03/31/17 16:00 03/31/17 16:00 03/31/17 16:00 Intake and Output: 03/31/17 03/31/17 06:59 18:59 Intake Total 1920 1020 Output Total 550 500 Balance 1370 520 - Medications Medications: Current Medications Albuterol/Ipratropium (Duoneb 3 Mg/0.5 Mg (3 Ml) Ud) 3 ml INH RQ6 [facility] Last Admin: 03/31/17 13:15 Dose: 3 ml Artificial Tears (Artificial Tears) 0 ml OD Q2H [facility] Last Admin: 03/31/17 12:30 Dose: 1 drop Ascorbic Acid (Vitamin C 250 Mg Tab) 250 mg PO DAILY [facility] Last Admin: 03/31/17 10:15 Dose: 250 mg Bisacodyl (Dulcolax) 10 mg [place] HS PRN PRN Reason: Constipation Last Admin: 03/27/17 18:07 Dose: 10 mg Carbidopa/Levodopa (Sinemet 10/100) 1 tab PO QID [facility] Last Admin: 03/31/17 13:12 Dose: 1 tab Docusate Sodium (Colace) 100 mg PO TID [facility] Last Admin: 03/31/17 13:12 Dose: 100 mg Heparin Sodium (Porcine) (Heparin) 5,000 units SC Q12 [facility] Last Admin: 03/31/17 10:14 Dose: 5,000 units Piperacillin Sod/Tazobactam Sod (Zosyn 2.25 Gm Iv Premix) 2.25 gm in 50 mls @ 100 mls/hr IVPB Q8H [facility] Last Admin: 03/31/17 13:00 Dose: 100 mls/hr Vancomycin HCl 1 gm/ Sodium (Chloride) 200 mls @ 133.333 mls/hr IVPB Q24H [facility] Last Admin: 03/30/17 17:34 Dose: 133.333 mls/hr Insulin Aspart (Novolog) 0 unit SC Q4 [facility] PRN Reason: Protocol Last Admin: 03/31/17 13:13 Dose: 8 unit Insulin Glargine (Lantus) 10 unit SC DAILY [facility] Last Admin: 03/31/17 10:14 Dose: 10 units Methylprednisolone (Solu-Medrol) 40 mg IV Q6 [facility] Last Admin: 03/31/17 13:12 Dose: 40 mg Metoprolol Tartrate (Lopressor) 12.5 mg PO BID [facility] Last Admin: 03/31/17 10:14 Dose: 12.5 mg Multivitamins/Vitamin C (Multi-Delyn Liquid) 5 ml GT DAILY [facility] Last Admin: 03/31/17 10:15 Dose: 5 ml Pantoprazole Sodium (Protonix Inj) 40 mg IVP DAILY [facility] Last Admin: 03/31/17 10:14 Dose: 40 mg Senna/Docusate Sodium (Senokot S 50 Mg-8.6 Mg) 1 tab PO DAILY PRN PRN Reason: Constipation Last Admin: 03/30/17 10:09 Dose: 1 tab - Labs Labs: 03/31/17 06:25 03/31/17 06:25 PT 14.1 SECONDS (9.7-12.2) H 03/21/17 19:13 INR 1.3 03/21/17 19:13 APTT 33 SECONDS (21-34) 03/21/17 19:13 - Head Exam Head Exam: ATRAUMATIC, NORMOCEPHALIC - Eye Exam Eye Exam: Normal appearance - ENT Exam ENT Exam: Mucous Membranes Moist - Neck Exam Neck Exam: Normal Inspection - Respiratory Exam Respiratory Exam: Clear to Ausculation Bilateral - Cardiovascular Exam Cardiovascular Exam: REGULAR RHYTHM Assessment and Plan (1) Respiratory failure Status: Acute (2) Anemia Status: Acute (3) CLEMENT (acute kidney injury) Status: Acute (4) Septic shock Status: Acute
[2017-04-01] MEDS: Aritificial Tears (15ml) OD SCH ×13 (00:32→23:58)
[2017-04-01] MEDS: MethylPREDNISolone 40 mg Vial IV SCH ×5 (00:38→23:56)
[2017-04-01] MEDS: (Novolog) Insulin Aspart, Recombinant 100 u/ml 10 ml vial SC SCH ×7 (00:39→23:54)
[2017-04-01] MEDS: Albuterol-Ipratrop 3 mg / 0.5 (3 ml) UD INH SCH ×2 (01:15→08:24)
[2017-04-01] MEDS: Piperacill/Tazo 2.25gm in Dex 2.25 GM/50 ML BAG IVPB SCH ×3 (05:42→21:43)
[2017-04-01 07:13] VITALS: O2SAT 100
--- NOTE | 2017-04-01 08:05 | CP.PCM.PN ---
Subjective - Date & Time of Evaluation Date of Evaluation: 03/31/17 Time of Evaluation: 16:00 - Subjective Subjective: DISCUSSED D/C CLEARANCE WITH DR. GAITAN AND PT IS CLEARED TO RETURN TO [facility] PER DR. GAITAN. ALSO DISCUSSED ABX RECS WITH DR. MINAYA. PER DR. MINAYA, PT TO CONTINUE ZOSYN 2.25 GM IV Q8 HOURS ANF VANCO 1 GM IV Q DAILY BOTH X14 DAYS TOTAL. OF TODAY, PT NEEDS ZOSYN X4 MORE DAYS AND VANCO X5 MORE DAYS. WILL DISCUSS IN AM WITH CM NEED FOR PICC VERSUS HEPLOCK, PT IS A RESIDENT AT [facility]. WILL DISCUSS DISPO PLAN WITH DR. KENNEDY, COVERING FOR DR. CAVANAUGH. Objective - Vital Signs/Intake and Output Vital Signs (last 24 hours): Temp Pulse Resp BP Pulse Ox 97.7 F 101 H 24 133/72 100 04/01/17 04:00 04/01/17 04:00 04/01/17 04:00 04/01/17 04:00 04/01/17 04:00 Intake and Output: 04/01/17 04/01/17 06:59 18:59 Intake Total 1990 Output Total 700 Balance 1290 - Medications Medications: Current Medications Albuterol/Ipratropium (Duoneb 3 Mg/0.5 Mg (3 Ml) Ud) 3 ml INH RQ6 [facility] Last Admin: 04/01/17 01:15 Dose: 3 ml Artificial Tears (Artificial Tears) 0 ml OD Q2H [facility] Last Admin: 04/01/17 05:41 Dose: 1 drop Ascorbic Acid (Vitamin C 250 Mg Tab) 250 mg PO DAILY [facility] Last Admin: 03/31/17 10:15 Dose: 250 mg Bisacodyl (Dulcolax) 10 mg [place] HS PRN PRN Reason: Constipation Last Admin: 03/27/17 18:07 Dose: 10 mg Carbidopa/Levodopa (Sinemet 10/100) 1 tab PO QID [facility] Last Admin: 03/31/17 21:06 Dose: 1 tab Docusate Sodium (Colace) 100 mg PO TID [facility] Last Admin: 03/31/17 18:22 Dose: 100 mg Heparin Sodium (Porcine) (Heparin) 5,000 units SC Q12 [facility] Last Admin: 03/31/17 21:03 Dose: 5,000 units Piperacillin Sod/Tazobactam Sod (Zosyn 2.25 Gm Iv Premix) 2.25 gm in 50 mls @ 100 mls/hr IVPB Q8H [facility] Last Admin: 04/01/17 05:42 Dose: 100 mls/hr Vancomycin HCl 1 gm/ Sodium (Chloride) 200 mls @ 133.333 mls/hr IVPB Q24H [facility] Last Admin: 03/31/17 18:00 Dose: 133.333 mls/hr Insulin Aspart (Novolog) 0 unit SC Q4 [facility] PRN Reason: Protocol Last Admin: 04/01/17 03:51 Dose: 4 unit Insulin Glargine (Lantus) 10 unit SC DAILY [facility] Last Admin: 03/31/17 10:14 Dose: 10 units Methylprednisolone (Solu-Medrol) 40 mg IV Q6 [facility] Last Admin: 04/01/17 05:42 Dose: 40 mg Metoprolol Tartrate (Lopressor) 12.5 mg PO BID [facility] Last Admin: 03/31/17 18:22 Dose: 12.5 mg Multivitamins/Vitamin C (Multi-Delyn Liquid) 5 ml GT DAILY [facility] Last Admin: 03/31/17 10:15 Dose: 5 ml Pantoprazole Sodium (Protonix Inj) 40 mg IVP DAILY [facility] Last Admin: 03/31/17 10:14 Dose: 40 mg Senna/Docusate Sodium (Senokot S 50 Mg-8.6 Mg) 1 tab PO DAILY PRN PRN Reason: Constipation Last Admin: 03/30/17 10:09 Dose: 1 tab - Labs Labs: 03/31/17 06:25 03/31/17 06:25 PT 14.1 SECONDS (9.7-12.2) H 03/21/17 19:13 INR 1.3 03/21/17 19:13 APTT 33 SECONDS (21-34) 03/21/17 19:13
[2017-04-01] MEDS: (Lantus) Insulin Glargine, Recombinant SC SCH (11:03)
[2017-04-01] MEDS: Multiple Vitamins Oral Solution GT SCH (11:05)
--- NOTE | 2017-04-01 12:02 | CP.PCM.PN ---
Subjective - Date & Time of Evaluation Date of Evaluation: 04/01/17 Time of Evaluation: 07:00 - Subjective Subjective: improving nad Objective - Vital Signs/Intake and Output Vital Signs (last 24 hours): Temp Pulse Resp BP Pulse Ox 97.7 F 101 H 24 133/72 100 04/01/17 04:00 04/01/17 04:00 04/01/17 04:00 04/01/17 04:00 04/01/17 04:00 Intake and Output: 04/01/17 04/01/17 06:59 18:59 Intake Total 1989 Output Total 700 Balance 1290 - Medications Medications: Current Medications Artificial Tears (Artificial Tears) 0 ml OD Q2H [facility] Last Admin: 04/01/17 10:30 Dose: 1 drop Ascorbic Acid (Vitamin C 250 Mg Tab) 250 mg PO DAILY [facility] Last Admin: 04/01/17 11:05 Dose: 250 mg Bisacodyl (Dulcolax) 10 mg [place] HS PRN PRN Reason: Constipation Last Admin: 03/27/17 18:07 Dose: 10 mg Carbidopa/Levodopa (Sinemet 10/100) 1 tab PO QID [facility] Last Admin: 04/01/17 11:05 Dose: 1 tab Docusate Sodium (Colace) 100 mg PO TID [facility] Last Admin: 04/01/17 11:01 Dose: 100 mg Heparin Sodium (Porcine) (Heparin) 5,000 units SC Q12 [facility] Last Admin: 04/01/17 11:01 Dose: 5,000 units Piperacillin Sod/Tazobactam Sod (Zosyn 2.25 Gm Iv Premix) 2.25 gm in 50 mls @ 100 mls/hr IVPB Q8H [facility] Last Admin: 04/01/17 05:42 Dose: 100 mls/hr Vancomycin HCl 1 gm/ Sodium (Chloride) 200 mls @ 133.333 mls/hr IVPB Q24H [facility] Last Admin: 03/31/17 18:00 Dose: 133.333 mls/hr Insulin Aspart (Novolog) 0 unit SC Q4 [facility] PRN Reason: Protocol Last Admin: 04/01/17 08:30 Dose: 10 unit Insulin Glargine (Lantus) 10 unit SC DAILY [facility] Last Admin: 04/01/17 11:03 Dose: 10 units Methylprednisolone (Solu-Medrol) 40 mg IV Q6 [facility] Last Admin: 04/01/17 05:42 Dose: 40 mg Metoprolol Tartrate (Lopressor) 12.5 mg PO BID [facility] Last Admin: 04/01/17 11:02 Dose: 12.5 mg Multivitamins/Vitamin C (Multi-Delyn Liquid) 5 ml GT DAILY [facility] Last Admin: 04/01/17 11:05 Dose: 5 ml Pantoprazole Sodium (Protonix Inj) 40 mg IVP DAILY [facility] Last Admin: 04/01/17 11:04 Dose: 40 mg Senna/Docusate Sodium (Senokot S 50 Mg-8.6 Mg) 1 tab PO DAILY PRN PRN Reason: Constipation Last Admin: 03/30/17 10:09 Dose: 1 tab - Labs Labs: 03/31/17 06:25 03/31/17 06:25 PT 14.1 SECONDS (9.7-12.2) H 03/21/17 19:13 INR 1.3 03/21/17 19:13 APTT 33 SECONDS (21-34) 03/21/17 19:13 - Constitutional Appears: Non-toxic, Chronically Ill - Head Exam Head Exam: NORMOCEPHALIC - Eye Exam Eye Exam: PERRL - ENT Exam ENT Exam: Mucous Membranes Dry - Neck Exam Neck Exam: absent: Lymphadenopathy - Respiratory Exam Respiratory Exam: Decreased Breath Sounds - Cardiovascular Exam Cardiovascular Exam: REGULAR RHYTHM - GI/Abdominal Exam GI & Abdominal Exam: Distended, Soft Assessment and Plan (1) CLEMENT (acute kidney injury) Status: Acute (2) Anemia Status: Acute (3) Respiratory failure with hypoxia and hypercapnia Status: Acute (4) Septic shock Status: Acute (5) Altered mental status Status: Acute (6) CHF (congestive heart failure) Status: Chronic (7) Diabetes mellitus Status: Chronic (8) Hyperlipidemia Status: Chronic (9) Hypertension Status: Chronic
--- NOTE | 2017-04-01 12:38 | CP.PCM.PN ---
Subjective - Date & Time of Evaluation Date of Evaluation: 04/01/17 Time of Evaluation: 12:35 - Subjective Subjective: PT SEEN IN ICU BED 1--PT SEEN BY DR. GAITAN AND DR. 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 OK PER DR. KENNEDY TO D/C BACK TO [facility] TODAY WELL. WILL D/C WITH [facility] (PT INCONTINENT AND UNABLE TO ASK FOR URINAL; RISK FOR SKIN BREAKDOWN 2/2 INCONTINENCE) AND HEPLOCK FOR IV ABX (4 DAYS MAX). DR. KENNEDY WILL COVER PT AT [facility] UNTIL DR. Key CAVANAUGH BACK FROM VACATION. ALSO DISCUSSED WITH [facility] PALL CARE ACCOUNTING MANAGER CONTROLLER---PER HER THE PT'S POA WAS SUPPOSED TO HAVE A MEETING WITH HER THIS FRIDAY IF PT WAS STILL IN HOSPITAL; HOWEVER SHE MAY RECEIVE PALL CARE INFORMATION ONCE PT IS AT [facility]. BELOW SEE D/C INFORMATION SENT WITH PT TO [facility]. CM AND AWARE OF D/C; TRANSPORTATION TO BE ARRANGED. NO FURTHER ORDERS. -PLACE UNDER THE SERVICE OF DR. KENNEDY WHILE AT RESIDENTIAL---DR. KENNEDY IS COVERING FOR DR. Priscilla CAVANAUGH. DR. Key CAVANAUGH WILL CONTINUE TO SEE PATIENT ONCE HE RETURNS. -CONTINUE MEDICATIONS PER THE MED REC FORM. -PER DR. MINAYA (ID): CONTINUE ZOSYN 2.25 GM IV Q8 HOURS X3 MORE DAYS (04/02/17----LAST DOSE TO BE GIVEN DURING THE EVENING OF 04/04/17) AND VANCOMYCIN 1 GM IV Q DAILY X4 MORE DAYS (04/02/17-04/05/17). -FALL PRECAUTIONS PER FACILITY PROTOCOL. -[facility] CATHETER CARE PER FACILITY PROTOCOL. -PEG CARE AND FEEDINGS. -HEPLOCK CARE AND REINSERTION PER FACILITY PROTOCOL AND NEEDED UNTIL IV ANTIBIOTIC REGIMEN COMPLETED. -PLEASE NOTE, IF PALLIATIVE CARE CONSULT CAN BE DONE AT [facility], NOTIFY THE FAMILY. FAMILY MAY BE INTERESTED IN MORE INFORMATION REGARDING GOALS OF CARE, ETC. HOWEVER FAMILY MEMBER ONLY AVAILABLE ON 04/03/17. PLEASE NOTIFY FAMILY. -FOR FURTHER ORDERS, CONTACT DR. KENNEDY'S OFFICE. Objective - Vital Signs/Intake and Output Vital Signs (last 24 hours): Temp Pulse Resp BP Pulse Ox 97.7 F 101 H 24 133/72 100 04/01/17 04:00 04/01/17 04:00 04/01/17 04:00 04/01/17 04:00 04/01/17 04:00 Intake and Output: 04/01/17 04/01/17 06:59 18:59 Intake Total 1989 Output Total 700 Balance 1290 - Medications Medications: Current Medications Artificial Tears (Artificial Tears) 0 ml OD Q2H [facility] Last Admin: 04/01/17 10:30 Dose: 1 drop Ascorbic Acid (Vitamin C 250 Mg Tab) 250 mg PO DAILY [facility] Last Admin: 04/01/17 11:05 Dose: 250 mg Bisacodyl (Dulcolax) 10 mg [place] HS PRN PRN Reason: Constipation Last Admin: 03/27/17 18:07 Dose: 10 mg Carbidopa/Levodopa (Sinemet 10/100) 1 tab PO QID [facility] Last Admin: 04/01/17 11:05 Dose: 1 tab Docusate Sodium (Colace) 100 mg PO TID [facility] Last Admin: 04/01/17 11:01 Dose: 100 mg Heparin Sodium (Porcine) (Heparin) 5,000 units SC Q12 [facility] Last Admin: 04/01/17 11:01 Dose: 5,000 units Piperacillin Sod/Tazobactam Sod (Zosyn 2.25 Gm Iv Premix) 2.25 gm in 50 mls @ 100 mls/hr IVPB Q8H [facility] Last Admin: 04/01/17 05:42 Dose: 100 mls/hr Vancomycin HCl 1 gm/ Sodium (Chloride) 200 mls @ 133.333 mls/hr IVPB Q24H [facility] Last Admin: 03/31/17 18:00 Dose: 133.333 mls/hr Insulin Aspart (Novolog) 0 unit SC Q4 [facility] PRN Reason: Protocol Last Admin: 04/01/17 08:30 Dose: 10 unit Insulin Glargine (Lantus) 10 unit SC DAILY [facility] Last Admin: 04/01/17 11:03 Dose: 10 units Methylprednisolone (Solu-Medrol) 40 mg IV Q6 [facility] Last Admin: 04/01/17 05:42 Dose: 40 mg Metoprolol Tartrate (Lopressor) 12.5 mg PO BID [facility] Last Admin: 04/01/17 11:02 Dose: 12.5 mg Multivitamins/Vitamin C (Multi-Delyn Liquid) 5 ml GT DAILY [facility] Last Admin: 04/01/17 11:05 Dose: 5 ml Pantoprazole Sodium (Protonix Inj) 40 mg IVP DAILY [facility] Last Admin: 04/01/17 11:04 Dose: 40 mg Senna/Docusate Sodium (Senokot S 50 Mg-8.6 Mg) 1 tab PO DAILY PRN PRN Reason: Constipation Last Admin: 03/30/17 10:09 Dose: 1 tab - Labs Labs: 03/31/17 06:25 03/31/17 06:25 PT 14.1 SECONDS (9.7-12.2) H 03/21/17 19:13 INR 1.3 03/21/17 19:13 APTT 33 SECONDS (21-34) 03/21/17 19:13
--- NOTE | 2017-04-01 12:41 | PCM.HF ---
Heart Failure Core Measure - Heart Failure Ejection Fraction: 40 % or Greater YVETTE Inhibitor Prescribed: No Contraindication/Reason for not providing: CLEMENT Beta-Marty Prescribed: None Contraindication/Reason for not providing: ON LOPRESSOR 12.5 MG Q12 Angiotensin II Receptor Marty Prescribed: No Contraindication/Reason for not providing: CLEMENT AnticoagulationTherapy for Atrial Fibrillation/Atrialflutter: No Contraindication/Reason for not providing: NO AFIB Aldosterone Antagonist Prescribed: No Contraindication/Reason for not providing: CLEMENT; EF > 40 Hydralazine Nitrate Prescribed: No Contraindication/Reason for not providing: CLEMENT; EF > 40 Implantable Cardioverter Defibrillator Therapy: No Contraindication/Reason for not providing: EF > 40 Cardiac Resynchronization Therapy Prescribed: No Contraindication/Reason for not providing: EF > 40 - Follow up Will be discharged to: Nursing Home Facility (RESIDENT AT [facility]) Follow Up Date (must be within 7 days from discharge): 04/03/17 Follow Up Time: 09:00
--- NOTE | 2017-04-01 13:42 | CP.PCM.DIS ---
Provider - Provider Date of Admission: 03/21/17 19:43 Attending physician: Sepideh Sheriff MD Hospital Course - Lab Results Lab Results: Micro Results 03/30/17 Unknown Stool Stool Culture - Final NO SALMONELLA, SHIGELLA OR CAMPYLOBACTER ISOLATED. 03/21/17 19:40 Blood Blood Culture - Final NO GROWTH AFTER 5 DAYS 03/21/17 19:40 Blood Gram Stain - Final TEST NOT PERFORMED 03/21/17 19:10 Blood Blood Culture - Final NO GROWTH AFTER 5 DAYS 03/21/17 19:10 Blood Gram Stain - Final TEST NOT PERFORMED 03/21/17 20:31 Trachasp Gram Stain - Final 03/21/17 20:31 Trachasp Sputum Culture - Final Methicillin Resistant S Aureus Proteus Mirabilis 03/21/17 22:44 Naris MRSA Culture (Admit) - Final MRSA DETECTED 03/21/17 21:03 Urine Urine Culture - Final Proteus Mirabilis Most Recent Lab Values WBC 16.4 K/uL (4.8-10.8) H D 03/31/17 06:25 RBC 2.80 Mil/uL (4.40-5.90) L 03/31/17 06:25 Hgb 8.6 g/dL (12.0-18.0) L 03/31/17 06:25 Hct 27.2 % (35.0-51.0) L 03/31/17 06:25 MCV 97.3 fL (80.0-94.0) H D 03/31/17 06:25 MCH 30.9 pg (27.0-31.0) 03/31/17 06:25 MCHC 31.8 g/dL (33.0-37.0) L 03/31/17 06:25 RDW 18.7 % (11.5-14.5) H 03/31/17 06:25 Plt Count 146 K/uL (130-400) 03/31/17 06:25 MPV 12.3 fL (7.2-11.7) H 03/31/17 06:25 Neut % (Auto) 85.7 % (50.0-75.0) H 03/28/17 06:11 Lymph % (Auto) 6.0 % (20.0-40.0) L 03/28/17 06:11 [place] % (Auto) 5.2 % (0.0-10.0) 03/28/17 06:11 Eos % (Auto) 3.0 % (0.0-4.0) 03/28/17 06:11 Baso % (Auto) 0.1 % (0.0-2.0) 03/28/17 06:11 Neut # 8.1 K/uL (1.8-7.0) H 03/28/17 06:11 Lymph # 0.6 K/uL (1.0-4.3) L 03/28/17 06:11 [place] # 0.5 K/uL (0.0-0.8) 03/28/17 06:11 Eos # 0.3 K/uL (0.0-0.7) 03/28/17 06:11 Baso # 0.0 K/uL (0.0-0.2) 03/28/17 06:11 Neutrophils % (Manual) 87 % (50-75) H 03/28/17 06:11 Band Neutrophils % 7 % (0-2) H 03/24/17 06:44 Lymphocytes % (Manual) 4 % (20-40) L 03/28/17 06:11 Monocytes % (Manual) 7 % (0-10) 03/28/17 06:11 Eosinophils % (Manual) 2 % (0-4) 03/28/17 06:11 Differential Comment 03/23/17 09:01 Platelet Estimate Decreased (NORMAL) L 03/28/17 06:11 Large Platelets Present 03/21/17 19:13 Polychromasia Slight 03/28/17 06:11 Hypochromasia (manual) Slight 03/28/17 06:11 Poikilocytosis (manual Slight 03/22/17 06:38 Anisocytosis (manual) Slight 03/28/17 06:11 Macrocytosis (manual) Moderate 03/22/17 06:38 Tear Drop Cells Slight 03/22/17 06:38 Ovalocytes Slight 03/22/17 06:38 Rouleaux Slight 03/21/17 19:13 PT 14.1 SECONDS (9.7-12.2) H 03/21/17 19:13 INR 1.3 03/21/17 19:13 APTT 33 SECONDS (21-34) 03/21/17 19:13 Puncture Site Rr 03/27/17 05:18 pCO2 32 mm/Hg (35-45) L 03/27/17 05:18 pO2 97 mm/Hg (80-100) 03/27/17 05:18 HCO3 24.9 mmol/L (21-28) 03/27/17 05:18 ABG pH 7.47 (7.35-7.45) H 03/27/17 05:18 ABG Total CO2 24.3 mmol/L (22-28) 03/27/17 05:18 ABG O2 Saturation 98.9 % (95-98) H 03/27/17 05:18 ABG Base Excess 0 mmol/L (-2.0-3.0) 03/27/17 05:18 ABG Hemoglobin 9.5 g/dL (11.7-17.4) L 03/27/17 05:18 ABG Carboxyhemoglobin 1.6 % (0.5-1.5) H 03/27/17 05:18 POC ABG HHb (Measured) 1.1 % (0.0-5.0) 03/27/17 05:18 ABG Methemoglobin 1.5 % (0.0-3.0) 03/27/17 05:18 Heriberto Test Pos 03/27/17 05:18 ABG Potassium 2.8 mmol/L (3.6-5.2) L 03/24/17 05:16 VBG pH 7.28 (7.32-7.43) L 03/21/17 19:36 VBG pCO2 57 mmHg (40-60) 03/21/17 19:36 VBG HCO3 22.6 mmol/L 03/21/17 19:36 VBG Total CO2 28.5 mmol/L (22-28) H 03/21/17 19:36 VBG O2 Sat (Calc) 52.7 % (40-65) 03/21/17 19:36 VBG Base Excess -1.0 mmol/L (0.0-2.0) L 03/21/17 19:36 VBG Potassium 4.5 mmol/L (3.6-5.2) 03/21/17 19:36 A-a O2 Difference 148.0 mm/Hg 03/27/17 05:18 Respiratory Index 1.5 03/27/17 05:18 Hgb O2 Saturation 95.8 % (95.0-98.0) 03/27/17 05:18 Sodium 159.0 mmol/l (132-148) H 03/24/17 05:16 Chloride 129.0 mmol/L (98-107) H 03/24/17 05:16 Glucose 318 mg/dl (75-110) H 03/24/17 05:16 Lactate 1.2 mmol/L (0.7-2.1) 03/24/17 05:16 Liter Flow 8.0 03/27/17 05:18 Vent Mode Cpap 03/26/17 05:14 Mechanical Rate 14 03/24/17 05:16 FiO2 40.0 % 03/27/17 05:18 Tidal Volume 450 03/24/17 05:16 PEEP 5 03/24/17 05:16 Pressure Support 10 03/26/17 05:14 CPAP 5 03/26/17 05:14 Crit Value Called To Jean rn 03/23/17 05:24 Crit Value Called By Patel emergency medical tech 03/23/17 05:24 Crit Value Read Back Y 03/23/17 05:24 Blood Gas Notified Time 534 03/23/17 05:24 Sodium 145 mmol/L (132-148) 03/31/17 06:25 Potassium 3.6 mmol/L (3.6-5.2) 03/31/17 06:25 Chloride 115 mmol/L (98-107) H 03/31/17 06:25 Carbon Dioxide 23 mmol/L (22-30) 03/31/17 06:25 Anion Gap 11 (10-20) 03/31/17 06:25 BUN 54 mg/dL (9-20) H 03/31/17 06:25 Creatinine 1.3 mg/dL (0.8-1.5) 03/31/17 06:25 Est GFR ( Amer) > 60 03/31/17 06:25 Est GFR (Non-Af Amer) 52 03/31/17 06:25 POC Glucose (mg/dL) 437 mg/dL (65-110) H* 04/01/17 11:38 Random Glucose 478 mg/dL (75-110) H* D 03/31/17 06:25 Hemoglobin A1c 7.6 % (4.2-6.5) H 03/21/17 19:13 Serum Osmolality 414 mosm/kg (272-300) H 03/21/17 20:51 Lactic Acid 4.6 mmol/L (0.7-2.1) H* 03/22/17 06:39 Calcium 7.4 mg/dl (8.6-10.4) L 03/31/17 06:25 Phosphorus 2.7 mg/dL (2.5-4.5) 03/28/17 06:11 Magnesium 2.2 mg/dL (1.6-2.3) 03/28/17 06:11 Iron 14 ug/dL (49-181) L 03/22/17 06:39 TIBC 194 ug/dL (250-450) L 03/22/17 06:39 % Saturation 7 (20-55) L 03/22/17 06:39 Total Bilirubin 0.6 mg/dL (0.2-1.3) 03/31/17 06:25 AST 42 U/L (17-59) 03/31/17 06:25 ALT 25 U/L (21-72) 03/31/17 06:25 Alkaline Phosphatase 237 U/L (38-126) H D 03/31/17 06:25 CK-MB (Mass) 0.91 ng/mL (0.0-3.38) 03/21/17 19:13 Troponin I 0.0420 ng/mL (0.00-0.120) 03/21/17 19:13 NT-Pro-B Natriuret Pep 902 pg/mL (0-900) H 03/21/17 20:24 Total Protein 6.9 g/dL (6.3-8.3) 03/31/17 06:25 Albumin 2.6 g/dL (3.5-5.0) L 03/31/17 06:25 Globulin 4.3 gm/dL (2.2-3.9) H 03/31/17 06:25 Albumin/Globulin Ratio 0.6 (1.0-2.1) L 03/31/17 06:25 Lipase 326 U/L (23-300) H 03/21/17 19:13 TSH 3rd Generation 3.03 mIU/L (0.46-4.68) 03/21/17 20:24 Arterial Blood Potassium 2.8 mmol/L (3.6-5.2) L 03/24/17 05:16 Venous Blood Potassium 4.5 mmol/L (3.6-5.2) 03/21/17 19:36 Urine Color Yellow (YELLOW) 03/21/17 19:08 Urine Clarity Cloudy (Clear) 03/21/17 19:08 Urine pH 7.5 (5.0-8.0) 03/21/17 19:08 Ur Specific [place] 1.020 (1.003-1.030) 03/21/17 19:08 Urine Protein > 300 mg/dL (NEGATIVE) 03/21/17 19:08 Urine Glucose (UA) 100 mg/dL (Normal) 03/21/17 19:08 Urine Ketones Trace mg/dL (NEGATIVE) 03/21/17 19:08 Urine Blood Large (NEGATIVE) 03/21/17 19:08 Urine Nitrate Negative (NEGATIVE) 03/21/17 19:08 Urine Bilirubin Negative (NEGATIVE) 03/21/17 19:08 Urine Urobilinogen 0.2 mg/dL (0.2-1.0) 03/21/17 19:08 Ur Leukocyte Esterase Moderate Adolfo/uL (Negative) 03/21/17 19:08 Urine WBC (Auto) 100 /hpf (0-5) H 03/21/17 19:08 Urine RBC (Auto) 250 /hpf (0-3) H 03/21/17 19:08 Ur Squamous Epith Cells 2 /hpf (0-5) 03/21/17 19:08 Urine Bacteria Rare (<OCC) 03/21/17 19:08 Urine Osmolality 563 mosm/kg (300-1000) 03/22/17 08:01 Ur Random Creatinine 75.7 mg/dL 03/22/17 08:01 Ur Random Sodium 24 mmol/L 03/22/17 08:01 Ur Random Uric Acid 15.0 mg/dL 03/22/17 08:01 Gastric Occult Blood Positive (NEGATIVE) H 03/22/17 09:15 Stool Leukocytes, Qual Negative (NEGATIVE) 03/30/17 Unknown Vancomycin Trough 15.9 ug/mL (5.0-10.0) H 03/28/17 18:06 Random Vancomycin 19.81 ug/mL 03/26/17 06:49 Urine Opiates Screen Negative (NEGATIVE) 03/22/17 08:01 Urine Methadone Screen Negative (NEGATIVE) 03/22/17 08:01 Ur Barbiturates Screen Negative (NEGATIVE) 03/22/17 08:01 Ur Phencyclidine Scrn Negative (NEGATIVE) 03/22/17 08:01 Ur Amphetamines Screen Negative (NEGATIVE) 03/22/17 08:01 U Benzodiazepines Scrn Negative (NEGATIVE) 03/22/17 08:01 U Oth Cocaine Metabols Negative (NEGATIVE) 03/22/17 08:01 U Cannabinoids Screen Negative (NEGATIVE) 03/22/17 08:01 Serum Ketones Negative (NEGATIVE) 03/21/17 20:24 C. difficile Ag & Toxin Negative (NEGATIVE) 03/30/17 Unknown Blood Type A POSITIVE 03/23/17 10:42 Antibody Screen Negative 03/23/17 10:42 Discharge Exam - Head Exam Head Exam: NORMOCEPHALIC Discharge Plan - Discharge Medications Prescriptions: Docusate [Colace] 100 mg GT TID 30 Days udc predniSONE [predniSONE Tab] 20 mg PO DAILY 12 Days tab Piperacill/Tazo 2.25gm in Dex [Zosyn 2.25 Gm IV Premix] 2.25 gm IV Q8 3 Days bag - Follow Up Plan Condition: FAIR Disposition: HOME/ ROUTINE Additional Instructions: -PLACE UNDER THE SERVICE OF DR. KENNEDY WHILE AT SENIOR CARE---DR. KENNEDY IS COVERING FOR DR. Priscilla SHERIFF. DR. Key SHERIFF WILL CONTINUE TO SEE PATIENT ONCE HE RETURNS. -CONTINUE MEDICATIONS PER THE MED REC FORM. -PER DR. MIRELES (ID): CONTINUE ZOSYN 2.25 GM IV Q8 HOURS X3 MORE DAYS (04/02/17----LAST DOSE TO BE GIVEN DURING THE EVENING OF 04/04/17) AND VANCOMYCIN 1 GM IV Q DAILY X4 MORE DAYS (04/02/17-04/05/17). -FALL PRECAUTIONS PER FACILITY PROTOCOL. -H[place] CATHETER CARE PER FACILITY PROTOCOL. -PEG CARE AND FEEDINGS. -HEPLOCK CARE AND REINSERTION PER FACILITY PROTOCOL AND NEEDED UNTIL IV ANTIBIOTIC REGIMEN COMPLETED. -PLEASE NOTE, IF PALLIATIVE CARE CONSULT CAN BE DONE AT [facility] [place], NOTIFY THE FAMILY. FAMILY MAY BE INTERESTED IN MORE INFORMATION REGARDING GOALS OF CARE, ETC. HOWEVER FAMILY MEMBER ONLY AVAILABLE ON 04/03/17. PLEASE NOTIFY FAMILY. -FOR FURTHER ORDERS, CONTACT DR. KENNEDY'S OFFICE. Referrals: Percy Cleary MD [Staff Provider] - Rk Kennedy MD [Staff Provider] - Ella Arevalo APN-C [Staff Provider] - Scot Mireles MD [Staff Provider] - Jose C Sheriff MD [Staff Provider] -
[2017-04-01] MEDS: Vancomycin 1 GM in Sodium Chloride 0.9% 200 ML IVPB SCH (19:00)
[2017-04-02] MEDS: Aritificial Tears (15ml) OD SCH ×9 (03:18→18:08)
[2017-04-02] MEDS: (Novolog) Insulin Aspart, Recombinant 100 u/ml 10 ml vial SC SCH ×4 (04:12→15:51)
[2017-04-02] MEDS: MethylPREDNISolone 40 mg Vial IV SCH ×3 (05:19→18:08)
[2017-04-02] MEDS: Piperacill/Tazo 2.25gm in Dex 2.25 GM/50 ML BAG IVPB SCH ×2 (05:22→13:56)
[2017-04-02 09:59] VITALS: BP 139/76; RESP 18
[2017-04-02] MEDS ORDERED: (Lantus) Insulin Glargine, Recombinant SC SCH (10:00)
[2017-04-02] MEDS: Multiple Vitamins Oral Solution GT SCH (10:44)
--- NOTE | 2017-04-02 11:50 | CP.PCM.PN ---
Subjective - Date & Time of Evaluation Date of Evaluation: 04/02/17 Time of Evaluation: 11:49 - Subjective Subjective: PICC LINE INSERTED TODAY AND PT TOLERATED PROCEDURE WELL. PT IS STILL CLEARED FOR D/C PER ATTENDING AND CONSULTS. FREE WATER FLUSH VIA GT DECREASED PT IS STILL EDEMATOUS. DISCUSSED WITH NIECE/ANDREIA MAC PLAN FOR D/C TODAY TO [facility] [place] AND SHE IS IN AGREEMENT. ALL CONCERNS AND QUESTIONS ADDRESSED. TRANSPORTATION TO BE ARRANGED BY . NO FURTHER ORDERS. -PLACE UNDER THE SERVICE OF DR. KENNEDY WHILE AT [facility]---DR. KENNEDY IS COVERING FOR DR. Priscilla CAVANAUGH. DR. Key CAVANAUGH WILL CONTINUE TO SEE PATIENT ONCE HE RETURNS. -CONTINUE MEDICATIONS PER THE MED REC FORM. -PER DR. MINAYA (ID): CONTINUE ZOSYN 2.25 GM IV Q8 HOURS X3 MORE DAYS (04/02/17----LAST DOSE TO BE GIVEN DURING THE EVENING OF 04/04/17) AND VANCOMYCIN 1 GM IV Q DAILY X4 MORE DAYS (04/02/17-04/05/17). -FALL PRECAUTIONS PER FACILITY PROTOCOL. -HERNÁNDEZ CATHETER CARE PER FACILITY PROTOCOL. -PEG CARE AND FEEDINGS. GLUCERNA 1.5 VIA GT TO RUN AT 50 ML/HR. -PICC LINE CARE PER FACILITY PROTOCOL. PIC C IS ONLY NEEDED UNTIL IV ANTIBIOTIC REGIMEN COMPLETED. PLEASE HAVE AMBER MERIDA REMOVE PICC LINE SOON THE LAST DOSE OF IV ABX GIVEN. -PLEASE NOTE, IF PALLIATIVE CARE CONSULT CAN BE DONE AT [facility] [place], NOTIFY THE FAMILY. FAMILY MAY BE INTERESTED IN MORE INFORMATION REGARDING GOALS OF CARE, ETC. HOWEVER FAMILY MEMBER ONLY AVAILABLE ON 04/03/17. PLEASE NOTIFY FAMILY. -FOR FURTHER ORDERS, CONTACT DR. KENNEDY'S OFFICE. Objective - Vital Signs/Intake and Output Vital Signs (last 24 hours): Temp Pulse Resp BP Pulse Ox 97.6 F 92 H 18 139/76 100 04/02/17 08:00 04/02/17 10:00 04/02/17 08:00 04/02/17 08:00 04/02/17 08:00 Intake and Output: 04/02/17 04/02/17 06:59 18:59 Intake Total 580 135 Output Total 250 80 Balance 330 55 - Medications Medications: Current Medications Artificial Tears (Artificial Tears) 0 ml OD Q2H [facility] Last Admin: 04/02/17 10:41 Dose: 1 drop Ascorbic Acid (Vitamin C 250 Mg Tab) 250 mg PO DAILY [facility] Last Admin: 04/02/17 10:44 Dose: 250 mg Bisacodyl (Dulcolax) 10 mg [place] HS PRN PRN Reason: Constipation Last Admin: 03/27/17 18:07 Dose: 10 mg Carbidopa/Levodopa (Sinemet 10/100) 1 tab PO QID [facility] Last Admin: 04/02/17 10:44 Dose: 1 tab Docusate Sodium (Colace) 100 mg PO TID [facility] Last Admin: 04/02/17 09:20 Dose: Not Given Piperacillin Sod/Tazobactam Sod (Zosyn 2.25 Gm Iv Premix) 2.25 gm in 50 mls @ 100 mls/hr IVPB Q8H [facility] Last Admin: 04/02/17 05:22 Dose: 100 mls/hr Vancomycin HCl 1 gm/ Sodium (Chloride) 200 mls @ 133.333 mls/hr IVPB Q24H [facility] Last Admin: 04/01/17 19:00 Dose: 133.333 mls/hr Insulin Aspart (Novolog) 0 unit SC Q4 AUGUST PRN Reason: Protocol Last Admin: 04/02/17 08:35 Dose: 4 unit Insulin Glargine (Lantus) 15 unit SC DAILY [facility] Last Admin: 04/02/17 10:42 Dose: 15 units Methylprednisolone (Solu-Medrol) 40 mg IV Q6 [facility] Last Admin: 04/02/17 05:19 Dose: 40 mg Metoprolol Tartrate (Lopressor) 12.5 mg PO BID [facility] Last Admin: 04/02/17 10:41 Dose: 12.5 mg Multivitamins/Vitamin C (Multi-Delyn Liquid) 5 ml GT DAILY [facility] Last Admin: 04/02/17 10:44 Dose: 5 ml Pantoprazole Sodium (Protonix Inj) 40 mg IVP DAILY [facility] Last Admin: 04/02/17 10:41 Dose: 40 mg Senna/Docusate Sodium (Senokot S 50 Mg-8.6 Mg) 1 tab PO DAILY PRN PRN Reason: Constipation Last Admin: 03/30/17 10:09 Dose: 1 tab - Labs Labs: 03/31/17 06:25 03/31/17 06:25 PT 14.1 SECONDS (9.7-12.2) H 03/21/17 19:13 INR 1.3 03/21/17 19:13 APTT 33 SECONDS (21-34) 03/21/17 19:13
--- NOTE | 2017-04-02 12:33 | CP.PCM.DIS ---
Provider - Provider Date of Admission: 03/21/17 19:43 Attending physician: Sepideh Sheriff MD Hospital Course - Lab Results Lab Results: Micro Results 03/30/17 Unknown Stool Stool Culture - Final NO SALMONELLA, SHIGELLA OR CAMPYLOBACTER ISOLATED. 03/21/17 19:40 Blood Blood Culture - Final NO GROWTH AFTER 5 DAYS 03/21/17 19:40 Blood Gram Stain - Final TEST NOT PERFORMED 03/21/17 19:10 Blood Blood Culture - Final NO GROWTH AFTER 5 DAYS 03/21/17 19:10 Blood Gram Stain - Final TEST NOT PERFORMED 03/21/17 20:31 Trachasp Gram Stain - Final 03/21/17 20:31 Trachasp Sputum Culture - Final Methicillin Resistant S Aureus Proteus Mirabilis 03/21/17 22:44 Naris MRSA Culture (Admit) - Final MRSA DETECTED 03/21/17 21:03 Urine Urine Culture - Final Proteus Mirabilis Most Recent Lab Values WBC 16.4 K/uL (4.8-10.8) H D 03/31/17 06:25 RBC 2.80 Mil/uL (4.40-5.90) L 03/31/17 06:25 Hgb 8.6 g/dL (12.0-18.0) L 03/31/17 06:25 Hct 27.2 % (35.0-51.0) L 03/31/17 06:25 MCV 97.3 fL (80.0-94.0) H D 03/31/17 06:25 MCH 30.9 pg (27.0-31.0) 03/31/17 06:25 MCHC 31.8 g/dL (33.0-37.0) L 03/31/17 06:25 RDW 18.7 % (11.5-14.5) H 03/31/17 06:25 Plt Count 146 K/uL (130-400) 03/31/17 06:25 MPV 12.3 fL (7.2-11.7) H 03/31/17 06:25 Neut % (Auto) 85.7 % (50.0-75.0) H 03/28/17 06:11 Lymph % (Auto) 6.0 % (20.0-40.0) L 03/28/17 06:11 [place] % (Auto) 5.2 % (0.0-10.0) 03/28/17 06:11 Eos % (Auto) 3.0 % (0.0-4.0) 03/28/17 06:11 Baso % (Auto) 0.1 % (0.0-2.0) 03/28/17 06:11 Neut # 8.1 K/uL (1.8-7.0) H 03/28/17 06:11 Lymph # 0.6 K/uL (1.0-4.3) L 03/28/17 06:11 [place] # 0.5 K/uL (0.0-0.8) 03/28/17 06:11 Eos # 0.3 K/uL (0.0-0.7) 03/28/17 06:11 Baso # 0.0 K/uL (0.0-0.2) 03/28/17 06:11 Neutrophils % (Manual) 87 % (50-75) H 03/28/17 06:11 Band Neutrophils % 7 % (0-2) H 03/24/17 06:44 Lymphocytes % (Manual) 4 % (20-40) L 03/28/17 06:11 Monocytes % (Manual) 7 % (0-10) 03/28/17 06:11 Eosinophils % (Manual) 2 % (0-4) 03/28/17 06:11 Differential Comment 03/23/17 09:01 Platelet Estimate Decreased (NORMAL) L 03/28/17 06:11 Large Platelets Present 03/21/17 19:13 Polychromasia Slight 03/28/17 06:11 Hypochromasia (manual) Slight 03/28/17 06:11 Poikilocytosis (manual Slight 03/22/17 06:38 Anisocytosis (manual) Slight 03/28/17 06:11 Macrocytosis (manual) Moderate 03/22/17 06:38 Tear Drop Cells Slight 03/22/17 06:38 Ovalocytes Slight 03/22/17 06:38 Rouleaux Slight 03/21/17 19:13 PT 14.1 SECONDS (9.7-12.2) H 03/21/17 19:13 INR 1.3 03/21/17 19:13 APTT 33 SECONDS (21-34) 03/21/17 19:13 Puncture Site Rr 03/27/17 05:18 pCO2 32 mm/Hg (35-45) L 03/27/17 05:18 pO2 97 mm/Hg (80-100) 03/27/17 05:18 HCO3 24.9 mmol/L (21-28) 03/27/17 05:18 ABG pH 7.47 (7.35-7.45) H 03/27/17 05:18 ABG Total CO2 24.3 mmol/L (22-28) 03/27/17 05:18 ABG O2 Saturation 98.9 % (95-98) H 03/27/17 05:18 ABG Base Excess 0 mmol/L (-2.0-3.0) 03/27/17 05:18 ABG Hemoglobin 9.5 g/dL (11.7-17.4) L 03/27/17 05:18 ABG Carboxyhemoglobin 1.6 % (0.5-1.5) H 03/27/17 05:18 POC ABG HHb (Measured) 1.1 % (0.0-5.0) 03/27/17 05:18 ABG Methemoglobin 1.5 % (0.0-3.0) 03/27/17 05:18 Heriberto Test Pos 03/27/17 05:18 ABG Potassium 2.8 mmol/L (3.6-5.2) L 03/24/17 05:16 VBG pH 7.28 (7.32-7.43) L 03/21/17 19:36 VBG pCO2 57 mmHg (40-60) 03/21/17 19:36 VBG HCO3 22.6 mmol/L 03/21/17 19:36 VBG Total CO2 28.5 mmol/L (22-28) H 03/21/17 19:36 VBG O2 Sat (Calc) 52.7 % (40-65) 03/21/17 19:36 VBG Base Excess -1.0 mmol/L (0.0-2.0) L 03/21/17 19:36 VBG Potassium 4.5 mmol/L (3.6-5.2) 03/21/17 19:36 A-a O2 Difference 148.0 mm/Hg 03/27/17 05:18 Respiratory Index 1.5 03/27/17 05:18 Hgb O2 Saturation 95.8 % (95.0-98.0) 03/27/17 05:18 Sodium 159.0 mmol/l (132-148) H 03/24/17 05:16 Chloride 129.0 mmol/L (98-107) H 03/24/17 05:16 Glucose 318 mg/dl (75-110) H 03/24/17 05:16 Lactate 1.2 mmol/L (0.7-2.1) 03/24/17 05:16 Liter Flow 8.0 03/27/17 05:18 Vent Mode Cpap 03/26/17 05:14 Mechanical Rate 14 03/24/17 05:16 FiO2 40.0 % 03/27/17 05:18 Tidal Volume 450 03/24/17 05:16 PEEP 5 03/24/17 05:16 Pressure Support 10 03/26/17 05:14 CPAP 5 03/26/17 05:14 Crit Value Called To Jean rn 03/23/17 05:24 Crit Value Called By Patel plant breeder 03/23/17 05:24 Crit Value Read Back Y 03/23/17 05:24 Blood Gas Notified Time 534 03/23/17 05:24 Sodium 145 mmol/L (132-148) 03/31/17 06:25 Potassium 3.6 mmol/L (3.6-5.2) 03/31/17 06:25 Chloride 115 mmol/L (98-107) H 03/31/17 06:25 Carbon Dioxide 23 mmol/L (22-30) 03/31/17 06:25 Anion Gap 11 (10-20) 03/31/17 06:25 BUN 54 mg/dL (9-20) H 03/31/17 06:25 Creatinine 1.3 mg/dL (0.8-1.5) 03/31/17 06:25 Est GFR ( Amer) > 60 03/31/17 06:25 Est GFR (Non-Af Amer) 52 03/31/17 06:25 POC Glucose (mg/dL) 244 mg/dL (65-110) H 04/02/17 11:59 Random Glucose 478 mg/dL (75-110) H* D 03/31/17 06:25 Hemoglobin A1c 7.6 % (4.2-6.5) H 03/21/17 19:13 Serum Osmolality 414 mosm/kg (272-300) H 03/21/17 20:51 Lactic Acid 4.6 mmol/L (0.7-2.1) H* 03/22/17 06:39 Calcium 7.4 mg/dl (8.6-10.4) L 03/31/17 06:25 Phosphorus 2.7 mg/dL (2.5-4.5) 03/28/17 06:11 Magnesium 2.2 mg/dL (1.6-2.3) 03/28/17 06:11 Iron 14 ug/dL (49-181) L 03/22/17 06:39 TIBC 194 ug/dL (250-450) L 03/22/17 06:39 % Saturation 7 (20-55) L 03/22/17 06:39 Total Bilirubin 0.6 mg/dL (0.2-1.3) 03/31/17 06:25 AST 42 U/L (17-59) 03/31/17 06:25 ALT 25 U/L (21-72) 03/31/17 06:25 Alkaline Phosphatase 237 U/L (38-126) H D 03/31/17 06:25 CK-MB (Mass) 0.91 ng/mL (0.0-3.38) 03/21/17 19:13 Troponin I 0.0420 ng/mL (0.00-0.120) 03/21/17 19:13 NT-Pro-B Natriuret Pep 902 pg/mL (0-900) H 03/21/17 20:24 Total Protein 6.9 g/dL (6.3-8.3) 03/31/17 06:25 Albumin 2.6 g/dL (3.5-5.0) L 03/31/17 06:25 Globulin 4.3 gm/dL (2.2-3.9) H 03/31/17 06:25 Albumin/Globulin Ratio 0.6 (1.0-2.1) L 03/31/17 06:25 Lipase 326 U/L (23-300) H 03/21/17 19:13 TSH 3rd Generation 3.03 mIU/L (0.46-4.68) 03/21/17 20:24 Arterial Blood Potassium 2.8 mmol/L (3.6-5.2) L 03/24/17 05:16 Venous Blood Potassium 4.5 mmol/L (3.6-5.2) 03/21/17 19:36 Urine Color Yellow (YELLOW) 03/21/17 19:08 Urine Clarity Cloudy (Clear) 03/21/17 19:08 Urine pH 7.5 (5.0-8.0) 03/21/17 19:08 Ur Specific [place] 1.020 (1.003-1.030) 03/21/17 19:08 Urine Protein > 300 mg/dL (NEGATIVE) 03/21/17 19:08 Urine Glucose (UA) 100 mg/dL (Normal) 03/21/17 19:08 Urine Ketones Trace mg/dL (NEGATIVE) 03/21/17 19:08 Urine Blood Large (NEGATIVE) 03/21/17 19:08 Urine Nitrate Negative (NEGATIVE) 03/21/17 19:08 Urine Bilirubin Negative (NEGATIVE) 03/21/17 19:08 Urine Urobilinogen 0.2 mg/dL (0.2-1.0) 03/21/17 19:08 Ur Leukocyte Esterase Moderate Adolfo/uL (Negative) 03/21/17 19:08 Urine WBC (Auto) 100 /hpf (0-5) H 03/21/17 19:08 Urine RBC (Auto) 250 /hpf (0-3) H 03/21/17 19:08 Ur Squamous Epith Cells 2 /hpf (0-5) 03/21/17 19:08 Urine Bacteria Rare (<OCC) 03/21/17 19:08 Urine Osmolality 563 mosm/kg (300-1000) 03/22/17 08:01 Ur Random Creatinine 75.7 mg/dL 03/22/17 08:01 Ur Random Sodium 24 mmol/L 03/22/17 08:01 Ur Random Uric Acid 15.0 mg/dL 03/22/17 08:01 Gastric Occult Blood Positive (NEGATIVE) H 03/22/17 09:15 Stool Leukocytes, Qual Negative (NEGATIVE) 03/30/17 Unknown Vancomycin Trough 15.9 ug/mL (5.0-10.0) H 03/28/17 18:06 Random Vancomycin 19.81 ug/mL 03/26/17 06:49 Urine Opiates Screen Negative (NEGATIVE) 03/22/17 08:01 Urine Methadone Screen Negative (NEGATIVE) 03/22/17 08:01 Ur Barbiturates Screen Negative (NEGATIVE) 03/22/17 08:01 Ur Phencyclidine Scrn Negative (NEGATIVE) 03/22/17 08:01 Ur Amphetamines Screen Negative (NEGATIVE) 03/22/17 08:01 U Benzodiazepines Scrn Negative (NEGATIVE) 03/22/17 08:01 U Oth Cocaine Metabols Negative (NEGATIVE) 03/22/17 08:01 U Cannabinoids Screen Negative (NEGATIVE) 03/22/17 08:01 Serum Ketones Negative (NEGATIVE) 03/21/17 20:24 C. difficile Ag & Toxin Negative (NEGATIVE) 03/30/17 Unknown Blood Type A POSITIVE 03/23/17 10:42 Antibody Screen Negative 03/23/17 10:42 Discharge Exam - Head Exam Head Exam: ATRAUMATIC, NORMOCEPHALIC Discharge Plan - Discharge Medications Prescriptions: Docusate [Colace] 100 mg GT TID 30 Days udc predniSONE [predniSONE Tab] 20 mg PO DAILY 12 Days tab Piperacill/Tazo 2.25gm in Dex [Zosyn 2.25 Gm IV Premix] 2.25 gm IV Q8 3 Days bag - Follow Up Plan Condition: FAIR Disposition: HOME/ ROUTINE Additional Instructions: -PLACE UNDER THE SERVICE OF DR. KENNEDY WHILE AT [facility]---DR. KENNEDY IS COVERING FOR DR. Priscilla SHERIFF. DR. Key SHERIFF WILL CONTINUE TO SEE PATIENT ONCE HE RETURNS. -CONTINUE MEDICATIONS PER THE MED REC FORM. -PER DR. MIRELES (ID): CONTINUE ZOSYN 2.25 GM IV Q8 HOURS X3 MORE DAYS (04/02/17----LAST DOSE TO BE GIVEN DURING THE EVENING OF 04/04/17) AND VANCOMYCIN 1 GM IV Q DAILY X4 MORE DAYS (04/02/17-04/05/17). -FALL PRECAUTIONS PER FACILITY PROTOCOL. -HERNÁNDEZ CATHETER CARE PER FACILITY PROTOCOL. -PEG CARE AND FEEDINGS. GLUCERNA 1.5 VIA GT TO RUN AT 50 ML/HR. -PICC LINE CARE PER FACILITY PROTOCOL. PIC C IS ONLY NEEDED UNTIL IV ANTIBIOTIC REGIMEN COMPLETED. PLEASE HAVE AMBER MERIDA REMOVE PICC LINE SOON THE LAST DOSE OF IV ABX GIVEN. -PLEASE NOTE, IF PALLIATIVE CARE CONSULT CAN BE DONE AT [facility] [place], NOTIFY THE FAMILY. FAMILY MAY BE INTERESTED IN MORE INFORMATION REGARDING GOALS OF CARE, ETC. HOWEVER FAMILY MEMBER ONLY AVAILABLE ON 04/03/17. PLEASE NOTIFY FAMILY. -FOR FURTHER ORDERS, CONTACT DR. KENNEDY'S OFFICE. Referrals: Percy Cleray MD [Staff Provider] - Rk Kennedy MD [Staff Provider] - Ella Arevalo APN-C [Staff Provider] - Scot Mireles MD [Staff Provider] - Jose C Sheriff MD [Staff Provider] -
[2017-04-02] MEDS ORDERED: Lidocaine 2% Inj (20ml) ONE (13:09)
--- NOTE | 2017-04-02 13:28 | PCM.SURG1 ---
Surgeon's Initial Post Op Note - Surgeon's Notes Surgeon: Jim Beverly MD Mission Assessment Specialist: NONE Type of Anesthesia: Local Pre-Operative Diagnosis: Poor venous access Operative Findings: Patent right brachial vein. Post-Operative Diagnosis: Poor venous access Operation Performed: Single lumen picc, 37 cm, via the right brachial vein. Tip is in the SVC. Specimen/Specimens Removed: none Estimated Blood Loss: EBL {In ML}: 2 Blood Products Given: N/A Drains Used: No Drains Post-Op Condition: Fair Date of Surgery/Procedure: 04/02/17 Time of Surgery/Procedure: 13:20
--- NOTE | 2017-04-02 16:26 | CP.PCM.PN ---
Subjective - Date & Time of Evaluation Date of Evaluation: 04/02/17 Time of Evaluation: 07:00 - Subjective Subjective: S/P piCC LINE IV RX IN PROGRESS Objective - Vital Signs/Intake and Output Vital Signs (last 24 hours): Temp Pulse Resp BP Pulse Ox 97.6 F 92 H 18 139/76 100 04/02/17 08:00 04/02/17 10:00 04/02/17 08:00 04/02/17 08:00 04/02/17 08:00 Intake and Output: 04/02/17 04/02/17 06:59 18:59 Intake Total 580 135 Output Total 250 80 Balance 330 55 - Medications Medications: Current Medications Artificial Tears (Artificial Tears) 0 ml OD Q2H [facility] Last Admin: 04/02/17 14:30 Dose: 1 drop Ascorbic Acid (Vitamin C 250 Mg Tab) 250 mg PO DAILY [facility] Last Admin: 04/02/17 10:44 Dose: 250 mg Bisacodyl (Dulcolax) 10 mg [place] HS PRN PRN Reason: Constipation Last Admin: 03/27/17 18:07 Dose: 10 mg Carbidopa/Levodopa (Sinemet 10/100) 1 tab PO QID [facility] Last Admin: 04/02/17 13:55 Dose: 1 tab Docusate Sodium (Colace) 100 mg PO TID [facility] Last Admin: 04/02/17 13:54 Dose: Not Given Piperacillin Sod/Tazobactam Sod (Zosyn 2.25 Gm Iv Premix) 2.25 gm in 50 mls @ 100 mls/hr IVPB Q8H [facility] Last Admin: 04/02/17 13:56 Dose: 100 mls/hr Vancomycin HCl 1 gm/ Sodium (Chloride) 200 mls @ 133.333 mls/hr IVPB Q24H [facility] Last Admin: 04/01/17 19:00 Dose: 133.333 mls/hr Insulin Aspart (Novolog) 0 unit SC Q4 [facility] PRN Reason: Protocol Last Admin: 04/02/17 15:51 Dose: 4 unit Insulin Glargine (Lantus) 15 unit SC DAILY [facility] Last Admin: 04/02/17 10:42 Dose: 15 units Methylprednisolone (Solu-Medrol) 40 mg IV Q6 [facility] Last Admin: 04/02/17 11:30 Dose: 40 mg Metoprolol Tartrate (Lopressor) 12.5 mg PO BID [facility] Last Admin: 04/02/17 10:41 Dose: 12.5 mg Multivitamins/Vitamin C (Multi-Delyn Liquid) 5 ml GT DAILY [facility] Last Admin: 04/02/17 10:44 Dose: 5 ml Pantoprazole Sodium (Protonix Inj) 40 mg IVP DAILY [facility] Last Admin: 04/02/17 10:41 Dose: 40 mg Senna/Docusate Sodium (Senokot S 50 Mg-8.6 Mg) 1 tab PO DAILY PRN PRN Reason: Constipation Last Admin: 03/30/17 10:09 Dose: 1 tab - Labs Labs: 03/31/17 06:25 03/31/17 06:25 PT 14.1 SECONDS (9.7-12.2) H 03/21/17 19:13 INR 1.3 03/21/17 19:13 APTT 33 SECONDS (21-34) 03/21/17 19:13 - Constitutional Appears: Non-toxic, Chronically Ill - Head Exam Head Exam: NORMOCEPHALIC - Eye Exam Eye Exam: PERRL - ENT Exam ENT Exam: Mucous Membranes Dry - Neck Exam Neck Exam: absent: Lymphadenopathy - Respiratory Exam Respiratory Exam: Decreased Breath Sounds - Cardiovascular Exam Cardiovascular Exam: REGULAR RHYTHM - GI/Abdominal Exam GI & Abdominal Exam: Distended, Soft - Rectal Exam Rectal Exam: Deferred - Exam Exam: NORMAL INSPECTION - Extremities Exam Extremities Exam: absent: Pedal Edema - Back Exam Back Exam: absent: CVA tenderness (L), CVA tenderness (R) Assessment and Plan (1) CLEMENT (acute kidney injury) Status: Acute (2) Anemia Status: Acute (3) Respiratory failure with hypoxia and hypercapnia Status: Acute (4) Septic shock Status: Acute (5) Altered mental status Status: Acute (6) CHF (congestive heart failure) Status: Chronic (7) Diabetes mellitus Status: Chronic (8) Hyperlipidemia Status: Chronic (9) Hypertension Status: Chronic
[2017-04-02] MEDS: Vancomycin 1 GM in Sodium Chloride 0.9% 200 ML IVPB SCH (17:09)
[2017-04-02 17:41] VITALS: PULSE 90; TEMP 98
[2017-04-02] MEDS: Docusate-Senna 50 mg-8.6 mg Tab PO PRN (18:07)
== END 2017-04-02 18:34 | DRG 870 ==
LOC: C.ER 18:51 → C.9E 19:43 → C.9I 21:32
PROVIDERS: ADMIT Internal Medicine Nephrology; ATTEND Internal Medicine Nephrology
PROC: 5A1955Z Respiratory Ventilation, Greater than 96 Consecutive Hours (ICD-10-PCS; principal; 2017-03-21)
PROC: 30233N1 Transfusion of Nonautologous Red Blood Cells into Peripheral Vein, Percutaneous Approach (ICD-10-PCS; 2017-03-22)
PROC: 02HV33Z Insertion of Infusion Device into Superior Vena Cava, Percutaneous Approach (ICD-10-PCS; 2017-03-22)
PROC: B548ZZA Ultrasonography of Superior Vena Cava, Guidance (ICD-10-PCS; 2017-03-22)
DX: A41.9 Sepsis, unspecified organism (principal); J69.0 Pneumonitis due to inhalation of food and vomit; R65.21 Severe sepsis with septic shock; L89.159 Pressure ulcer of sacral region, unspecified stage; J96.02 Acute respiratory failure with hypercapnia; J96.01 Acute respiratory failure with hypoxia; N17.9 Acute kidney failure, unspecified; E87.0 Hyperosmolality and hypernatremia; D69.6 Thrombocytopenia, unspecified; E11.22 Type 2 diabetes mellitus with diabetic chronic kidney disease; I50.32 Chronic diastolic (congestive) heart failure; I13.0 Hypertensive heart and chronic kidney disease with heart failure and stage 1 through stage 4 chronic kidney disease, or unspecified chronic kidney disease; K92.2 Gastrointestinal hemorrhage, unspecified; N39.0 Urinary tract infection, site not specified; E11.65 Type 2 diabetes mellitus with hyperglycemia; E86.0 Dehydration; D50.0 Iron deficiency anemia secondary to blood loss (chronic); D63.8 Anemia in other chronic diseases classified elsewhere; E78.00 Pure hypercholesterolemia, unspecified; G30.9 Alzheimer's disease, unspecified; F02.80 Dementia in other diseases classified elsewhere, unspecified severity, without behavioral disturbance, psychotic disturbance, mood disturbance, and anxiety; G20 Parkinson's disease; Z93.1 Gastrostomy status; R31.9 Hematuria, unspecified; N18.9 Chronic kidney disease, unspecified; Z51.5 Encounter for palliative care; B96.4 Proteus (mirabilis) (morganii) as the cause of diseases classified elsewhere

== ENCOUNTER 2017-04-08 14:27 | Inpatient (IN) | payer MEDICARE, OTHER ==
[2017-04-08 14:27] VITALS: BMI 23.6
[2017-04-08] MEDS ORDERED: Cefepime 1 GM in Sodium Chloride 0.9% 50 ML IVPB ONE (16:11)
--- NOTE | 2017-04-08 16:47 | RAD ---
PROCEDURE: CHEST RADIOGRAPH, 1 VIEW HISTORY: Shortness of breath COMPARISON: 03/21/2017. FINDINGS: There has been interval extubation. The nasogastric tube has been removed. The right PICC line terminates in the SVC. LUNGS: There is confluent airspace disease in both perihilar regions and lower lobes. PLEURA: No pneumothorax. Moderate pleural effusions. CARDIOVASCULAR: Normal. OSSEOUS STRUCTURES: No significant abnormalities. VISUALIZED UPPER ABDOMEN: Normal. OTHER FINDINGS: None. IMPRESSION: Findings are most compatible with moderate pleural effusions and bilateral perihilar and lower lobe pulmonary edema versus consolidations. Follow-up is advised.
--- NOTE | 2017-04-08 16:54 | C.PDOC ---
History Of Present Illness 87 year old male with PMHx of Parkinson is brought to the ED from his senior living in respiratory distress, patient required my immediate attention. Patient is accompanied by his family who state that patient was recreantly hospitalized for similar symptoms in the past. Patient is unable to provide any more information. Time Seen by Provider: 04/08/17 15:37 Chief Complaint (Nursing): Shortness Of Breath History Per: Patient History/Exam Limitations: no limitations Onset/Duration Of Symptoms: Days Current Symptoms Are (Timing): Still Present Exacerbating Factor(s): Exertion Current Respiratory Medications: See Home Med List Reports Recently: Hospitalized Recent travel outside of the [place]: No Additional History Per: Patient Past Medical History Reviewed: Historical Data, Nursing Documentation, Vital Signs Vital Signs: Last Vital Signs Temp 95.6 F L 04/10/17 00:00 Pulse 118 H 04/10/17 00:10 Resp 22 04/10/17 00:10 BP 47/31 L 04/09/17 23:28 Pulse Ox 89 L 04/10/17 07:41 - Medical History PMH: Anemia, HTN, Hypercholesterolemia, Parkinson's Disease Denies: CHF, Chronic Kidney Disease Surgical History: No Surg Hx - [facility] Procedures INSERTION OF FEEDING DEVICE INTO STOMACH, PERC APPROACH (12/16/16) INSERTION OF INFUSION DEV INTO SUP VENA CAVA, PERC APPROACH (03/21/17) RESPIRATORY VENTILATION, GREATER THAN 96 CONSECUTIVE HOURS (03/21/17) TRANSFUSE NONAUT RED BLOOD CELLS IN PERIPH VEIN, PERC (03/21/17) ULTRASONOGRAPHY OF SUPERIOR VENA CAVA, GUIDANCE (03/21/17) Family History: States: Unknown Family Hx - Social History Hx Tobacco Use: No Hx Alcohol Use: No Hx Substance Use: No - Immunization History Hx Tetanus Toxoid Vaccination: Yes Hx Influenza Vaccination: Yes Hx Pneumococcal Vaccination: Yes Review Of Systems Review Of Systems: ROS cannot be obtained secondary to pt's inabilty to answer questions. Physical Exam - Physical Exam Appears: Toxic, In Acute Distress, Other (Respiratory distress) Skin: Normal Color, Warm, Dry Head: Atraumatic, Normacephalic Eye(s): bilateral: Normal Inspection Nose: No Discharge, No Deformity Oral Mucosa: Moist Neck: Normal ROM, Supple Chest: Symmetrical Cardiovascular: Rhythm Regular, No Murmur Respiratory: Decreased Breath Sounds (B/L ), No Rales, No Rhonchi, No Wheezing, Other (tachypnic) Gastrointestinal/Abdominal: Soft, No Tenderness, No Guarding, No Rebound, Other (G-tube placed) Extremity: Normal ROM, No Pedal Edema, No Calf Tenderness, Capillary Refill (< 2 seconds), No Deformity, Swelling (+ 4 B/L pitting edema), Other (Picc line in right arm) ED Course And Treatment - Laboratory Results Result Diagrams: 04/09/17 06:22 04/09/17 06:22 O2 Sat by Pulse Oximetry: 89 (On RA) - Radiology CXR: Viewed By Me, Read By Radiologist CXR Interpretation: Yes: Other (Findings are most compatible with moderate pleural effusions and bilateral perihilar and lower lobe pulmonary edema versus consolidations. Follow-up is advised.) Critical Care Time - Critical Care Note Total Time (in mins): 50 Documented critical care: time excludes all time spent performing seperately billable procedures. Medical Decision Making Medical Decision Making: Impression : CHF/pneumonia Plan: * ABG * EKG * Labs * CXR * UA * Blood culture * Lasix 20 mg IVP * Versed * Maxipime * Bipap * Influenza A B Dr. Cleary and Dr. Trever Sheriff were notified. Patient was intubated secondary to respiratory distress, patient was given 20 mg etomidate. 7.5 endotracheal tube was used vocal cords were visualized, tube condensation noted, positive color change was noted with end tidal co2, 7.5 tube 23 at the lip. ICU came to see the patient, code sepsis was called once the results from lactic acid were received, ICU currently managing the code sepsis. Disposition Discussed With : Jose C Sheriff Doctor Will See Patient In The: Hospital Counseled Patient/Family Regarding: Studies Performed, Diagnosis - Disposition Disposition: HOSPITALIZED Disposition Time: 16:53 Condition: CRITICAL - Clinical Impression Clinical Impression: Respiratory distress, CHF (congestive heart failure) - Scribe Statement The provider has reviewed the documentation as recorded by the Scribe Howard Dolan All medical record entries made by the Scribe were at my direction and personally dictated by me. I have reviewed the chart and agree that the record accurately reflects my personal performance of the history, physical exam, medical decision making, and the department course for this patient. I have also personally directed, reviewed, and agree with the discharge instructions and disposition.
--- NOTE | 2017-04-08 17:09 | RAD ---
HISTORY: respiratory arrest COMPARISON: 04/08/2017 at 4:03 p.m.. FINDINGS: Endotracheal tube is low in position terminating 1 cm proximal to the nevin. The nasogastric tube terminates in the stomach. The right PICC line terminates in the SVC. LUNGS: There is interval improved aeration in the lungs with persistent confluent airspace disease in the perihilar regions. PLEURA: Improving pleural effusions no pneumothorax apparent. CARDIOVASCULAR: Normal. OSSEOUS STRUCTURES: Within normal limits for the patient's age. VISUALIZED UPPER ABDOMEN: Normal. OTHER FINDINGS: None. IMPRESSION: 1. Endotracheal tube is low in position and terminates 1 cm proximal to the nevin. The nasogastric tube terminates in the stomach. 2. Improving presumable pulmonary edema and pleural effusions.
[2017-04-08 17:20] LABS: EOS % 0.6 % (0.0-4.0); HEMOGLOBIN 9.4 g/dL (12.0-18.0); LYMPH # 0.1 K/uL (1.0-4.3); LYMPH % 5.4 % (20.0-40.0); MEAN CORPUSCULAR HEMOGLOBIN 31.7 pg (27.0-31.0); MEAN CORPUSCULAR HGB CONC 30.7 g/dL (33.0-37.0); MEAN PLATELET VOLUME 11.5 fL (7.2-11.7); MONO # 0.1 K/uL (0.0-0.8); MONO % 5.2 % (0.0-10.0); NEUT # 1.4 K/uL (1.8-7.0); NEUT % 88.8 % (50.0-75.0); NRBC % 2.4 % (0.0-2.0); RBC 2.97 Mil/uL (4.40-5.90); RED CELL DISTRIBUTION WIDTH 21.2 % (11.5-14.5)
[2017-04-08 17:22] LABS: ABG ALLEN TEST YES; ARTERIAL BLOOD GAS HCO3 18.3 mmol/L (21-28); ARTERIAL BLOOD GAS O2 SAT 100.8 % (95-98); ARTERIAL BLOOD GAS PCO2 27 mm/Hg (35-45); ARTERIAL BLOOD GAS PH 7.36 (7.35-7.45); ARTERIAL BLOOD GAS PO2 139 mm/Hg (80-100); ARTERIAL BLOOD GAS TCO2 16.1 mmol/L (22-28)
[2017-04-08 17:29] LABS: MEAN CELL VOLUME 103.1 fL (80.0-94.0); PLATELET COUNT 111 K/uL (130-400); WHITE BLOOD COUNT 1.6 K/uL (4.8-10.8)
[2017-04-08] MEDS ORDERED: Piperacillin/Tazobact 2.25 GM in Sodium Chloride 100 ML IVPB STA (17:30)
[2017-04-08] MEDS ORDERED: Vancomycin 1 GM 1 GM/250 ML BAG IVPB STA (17:30)
[2017-04-08] MEDS ORDERED: Sodium Chloride 0.9% 1,000 ML IV ONE ×3 (17:30→22:24)
[2017-04-08] MEDS ORDERED: Sodium Bicarbonate (8.4%) 50 Meq Syringe IVP STA (17:34)
[2017-04-08 17:35] LABS: URINE BACTERIA OCC (<OCC); URINE BILIRUBIN NEGATIVE (NEGATIVE); URINE BLOOD NEGATIVE (NEGATIVE); URINE CLARITY Hazy (Clear); URINE COLOR Yellow (YELLOW); URINE GLUCOSE (UA) 1+ mg/dL (Normal); URINE LEUKOCYTE ESTERASE 3+ Leu/uL (Negative); URINE NITRATE NEGATIVE (NEGATIVE); URINE PROTEIN 2+ mg/dL (NEGATIVE); URINE UROBILINOGEN NORMAL mg/dL (0.2-1.0)
--- NOTE | 2017-04-08 17:36 | CP.PCM.CON ---
History of Present Illness - History of Present Illness History of Present Illness: CCU Consult HPI: Patient seen and examined at bedside. Presented for respiratory distress. Was here not long ago discharged after being extubated. Patient is intubated on presentation to ED. Code sepsis called. Patient is acidotic, hypotensive SBP 60. Leukopenic. Patient started on levophed, 2 L NS given. Patient continues to be at SBP in 60s despite being on pressors. Will fluid challenge again. Blood cultures taken. PMHx: Parkinson's disease, Alzeimer's disease, HTN, DM, anemia, CHF, thrombocytopenia, hematuria, PEG PSHx: R ankle surgery, bilateral eye surgery Meds: Ergocalciferol 50,000 units 1 cap PO Q7D, Aspirin 81 mg PO daily, Crestor 10mg PO QHS, Lisinopril 5mg PO daily, Glimepiride 4mg PO BID, Folic acid 1mg PO daily, Famotidine 20mg PO BID Allergies: NKDA Social: until 3 months ago lived with Leonor paige ([phone]). Now resides at [facility]. Never smoked Family Hx: no significant family history ROS: unobtainable as patient is non-verbal. Review of Systems - Review of Systems Review of Systems: per HPI Past Patient History - Infectious Disease Hx of Infectious Diseases: None - Past Medical History & Family History Past Medical History?: Yes - Past Social History Smoking Status: Never Smoked - CARDIAC Hx Congestive Heart Failure: No Hx Hypercholesterolemia: Yes Hx Hypertension: Yes - PULMONARY Hx Respiratory Disorders: No - NEUROLOGICAL Hx Parkinson's Disease: Yes - HEENT 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 area as per niece - MUSCULOSKELETAL/RHEUMATOLOGICAL Hx Falls: Yes - GASTROINTESTINAL Hx Gastrointestinal Disorders: No - GENITOURINARY/GYNECOLOGICAL Hx Genitourinary Disorders: No - PSYCHIATRIC Hx Substance Use: No - SURGICAL HISTORY Hx Surgeries: Yes (right ankle surgery, bilateral eye surgeries) - ANESTHESIA Hx Anesthesia: Yes Hx Anesthesia Reactions: No Meds Allergies/Adverse Reactions: Allergies Allergy/AdvReac Type Severity Reaction Status Date / Time No Known Allergies Allergy Verified 04/08/17 14:45 - Medications Medications: Current Medications Midazolam HCl 100 mg/ Dextrose 100 mls @ 1.27 mls/hr IV .Q24H AUGUST; 0.02 MG/KG/ HR PRN Reason: Protocol Piperacillin Sod/Tazobactam (Sod 2.25 gm/ Sodium Chloride) 100 mls @ 200 mls/ hr IVPB STAT STA Stop: 04/08/17 17:59 Sodium Chloride (Sodium Chloride 0.9%) 1,000 mls @ 1,000 mls/hr IV .Q1H ONE Stop: 04/08/17 18:29 Vancomycin HCl (Vancomycin 1gm In Normal Saline Addvantage) 1 gm in 250 mls @ 167 mls/hr IVPB STAT STA Stop: 04/08/17 18:59 Norepinephrine Bitartrate 32 (mg/ Sodium Chloride) 1,032 mls @ 38.7 mls/hr IV .Q24H PRN; Protocol; 20 MCG/MIN PRN Reason: TITRATE PER MD ORDER Physical Exam - Constitutional Appears: Chronically Ill - Head Exam Head Exam: ATRAUMATIC, NORMAL INSPECTION, NORMOCEPHALIC - Eye Exam Eye Exam: PERRL - ENT Exam ENT Exam: Mucous Membranes Moist - Neck Exam Additional comments: intubated - Cardiovascular Exam Cardiovascular Exam: REGULAR RHYTHM - GI/Abdominal Exam GI & Abdominal Exam: Normal Bowel Sounds, Soft. absent: Distended, Tenderness - Extremities Exam Extremities exam: Negative for: joint swelling, tenderness - Skin Skin Exam: Dry, Intact, Normal Color, Warm Results - Vital Signs Recent Vital Signs: Last Vital Signs Temp 97.6 F 04/08/17 14:39 Pulse 115 H 04/08/17 14:39 Resp 38 H 04/08/17 15:05 BP Pulse Ox 89 L 04/08/17 17:14 - Labs Result Diagrams: 04/08/17 17:17 04/08/17 17:17 Labs: Laboratory Results - last 24 hr 04/08/17 04/08/17 17:10 17:17 WBC 1.6 L* D RBC 2.97 L Hgb 9.4 L Hct 30.6 L MCV 103.1 H D MCH 31.7 H MCHC 30.7 L RDW 21.2 H Plt Count 111 L D MPV 11.5 Neut % (Auto) 88.8 H Lymph % (Auto) 5.4 L [place] % (Auto) 5.2 Eos % (Auto) 0.6 Baso % (Auto) 0.0 Neut # 1.4 L Lymph # 0.1 L [place] # 0.1 Eos # 0.0 Baso # 0.0 Puncture Site Lba pCO2 27 L pO2 139 H HCO3 18.3 L ABG pH 7.36 ABG Total CO2 16.1 L ABG O2 Saturation 100.8 H ABG Base Excess -8.6 L Heriberto Test Yes ABG Potassium 3.6 A-a O2 Difference 540.0 Respiratory Index 3.9 Sodium 161.0 H* Chloride 135.0 H Glucose 289 H Lactate 7.7 H* Vent Mode Prvc Mechanical Rate 12 FiO2 100.0 Tidal Volume 500 PEEP 5 Crit Value Called To learning consultantmelchor leone Crit Value Called By Teresa wool and pelt grader Crit Value Read Back Y Blood Gas Notified Time 1721 Arterial Blood Potassium 3.6 Assessment & Plan - Assessment and Plan (Free Text) Assessment: 86 Sepsis likely pneumonia, Respiratory distress, intubated Plan: Neuro: versed given in ED for sedation alzheimers parkinsons Cardio: Hypotensive, Levophen 20 started, multiple fluid challenges, not responding as of now Pulm: Respiratory failure intubated very acidotic, sodium bicarb given, Increase RR to blow off extra CO2 GI: Pepcid NAHUM: sherron ID: [email or web address], maxipime and vanco given sepsis likely secondary to pneumonia Lactate 7.7 PPX: pepcid Heparin
[2017-04-08] MEDS ORDERED: Sodium Bicarbonate (8.4%) 50 Meq Syringe ONE (17:40)
[2017-04-08] MEDS ORDERED: NOREPINEPHRINE IV PRN (17:45)
[2017-04-08] MEDS ORDERED: SODIUM CHLORIDE 0.9% IV PRN (17:45)
[2017-04-08 17:46] LABS: ALB/GLOB RATIO 0.7 (1.0-2.1); ALBUMIN 2.4 g/dL (3.5-5.0); CALCIUM 8.1 mg/dl (8.6-10.4)
[2017-04-08 17:47] LABS: LYMPHOCYTE 4 % (20-40); NUCLEATED RED BLOOD CELL 1 % (0-0); TOTAL CELLS COUNTED 100; TROPONIN I 0.014 ng/mL (0.00-0.120)
[2017-04-08] MEDS: Midazolam 50 mg/10 ml 100 MG in Dextrose 5% In Water 80 ML IV SCH (18:00)
[2017-04-08] MEDS ORDERED: Cefepime IV 1 gm in Dextrose 1 GM/50 ML BAG IVPB ONE (18:00)
[2017-04-08] MEDS ORDERED: Vancomycin 1 gm/NS 200 ml 1 GM/200 ML BAG IVPB ONE (18:00)
[2017-04-08 18:02] LABS: BANDS 28 % (0-2); EOSINOPHIL 1 % (0-4); METAMYELOCYTE 3 % (0-0); MONOCYTE 1 % (0-10); MYELOCYTE 4 % (0-0)
[2017-04-08 18:03] LABS: ANISOCYTOSIS MODERATE; NEUTROPHIL 59 % (50-75); PLATELET ESTIMATE SLIGHTLY DECREASED (NORMAL); TOXIC GRANULATION PRESENT
[2017-04-08 18:04] LABS: LARGE PLATELETS PRESENT
--- NOTE | 2017-04-08 18:20 | CP.PCM.HP ---
Past Patient History - Infectious Disease Hx of Infectious Diseases: None - Past Medical History & Family History Past Medical History?: Yes - Past Social History Smoking Status: Never Smoked - CARDIAC Hx Congestive Heart Failure: No Hx Hypercholesterolemia: Yes Hx Hypertension: Yes - PULMONARY Hx Respiratory Disorders: No - NEUROLOGICAL Hx Parkinson's Disease: Yes - HEENT 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 area as per niece - MUSCULOSKELETAL/RHEUMATOLOGICAL Hx Falls: Yes - GASTROINTESTINAL Hx Gastrointestinal Disorders: No - GENITOURINARY/GYNECOLOGICAL Hx Genitourinary Disorders: No - PSYCHIATRIC Hx Substance Use: No - SURGICAL HISTORY Hx Surgeries: Yes (right ankle surgery, bilateral eye surgeries) - ANESTHESIA Hx Anesthesia: Yes Hx Anesthesia Reactions: No Meds Allergies/Adverse Reactions: Allergies Allergy/AdvReac Type Severity Reaction Status Date / Time No Known Allergies Allergy Verified 04/08/17 14:45 Physical Exam - Constitutional Appears: Well - Head Exam Head Exam: ATRAUMATIC, NORMAL INSPECTION, NORMOCEPHALIC - Eye Exam Eye Exam: EOMI, Normal appearance, PERRL Pupil Exam: NORMAL ACCOMODATION, PERRL - ENT Exam ENT Exam: Mucous Membranes Moist, Normal Exam - Neck Exam Neck exam: Positive for: Normal Inspection - Respiratory Exam Respiratory Exam: Decreased Breath Sounds - Cardiovascular Exam Cardiovascular Exam: REGULAR RHYTHM, +S1, +S2 - GI/Abdominal Exam GI & Abdominal Exam: Diminished Bowel Sounds, Soft - Rectal Exam Rectal Exam: Deferred Results - Vital Signs Recent Vital Signs: Last Vital Signs Temp 97.6 F 04/08/17 14:39 Pulse 114 H 04/08/17 17:57 Resp 56 H 04/08/17 16:30 BP 62/29 L 04/08/17 17:57 Pulse Ox 89 L 04/08/17 18:07 - Labs Result Diagrams: 04/08/17 17:17 04/08/17 17:17 Labs: Laboratory Results - last 24 hr 04/08/17 04/08/17 04/08/17 15:44 17:10 17:17 WBC 1.6 L* D RBC 2.97 L Hgb 9.4 L Hct 30.6 L MCV 103.1 H D MCH 31.7 H MCHC 30.7 L RDW 21.2 H Plt Count 111 L D MPV 11.5 Neut % (Auto) 88.8 H Lymph % (Auto) 5.4 L [place] % (Auto) 5.2 Eos % (Auto) 0.6 Baso % (Auto) 0.0 Neut # 1.4 L Lymph # 0.1 L [place] # 0.1 Eos # 0.0 Baso # 0.0 Neutrophils % (Manual) 59 Band Neutrophils % 28 H* Lymphocytes % (Manual) 4 L Monocytes % (Manual) 1 Eosinophils % (Manual) 1 Metamyelocytes % 3 H Myelocytes % 4 H Nucleated RBC % 1 H Toxic Granulation Present Dohle Bodies Present Platelet Estimate Slightly decreased L Large Platelets Present Anisocytosis (manual) Moderate Macrocytosis (manual) Moderate Puncture Site Lba pCO2 27 L pO2 139 H HCO3 18.3 L ABG pH 7.36 ABG Total CO2 16.1 L ABG O2 Saturation 100.8 H ABG Base Excess -8.6 L Heriberto Test Yes ABG Potassium 3.6 A-a O2 Difference 540.0 Respiratory Index 3.9 Sodium 161.0 H* Chloride 135.0 H Glucose 289 H Lactate 7.7 H* Vent Mode Prvc Mechanical Rate 12 FiO2 100.0 Tidal Volume 500 PEEP 5 Crit Value Called To trial attorneymelchor leone Crit Value Called By Teresa fire pot operator Crit Value Read Back Y Blood Gas Notified Time 1721 Potassium Carbon Dioxide Anion Gap BUN Creatinine Est GFR ( Amer) Est GFR (Non-Af Amer) Random Glucose Calcium Total Bilirubin AST ALT Alkaline Phosphatase Troponin I NT-Pro-B Natriuret Pep Total Protein Albumin Globulin Albumin/Globulin Ratio Arterial Blood Potassium 3.6 Urine Color Urine Clarity Urine pH Ur Specific [place] Urine Protein Urine Glucose (UA) Urine Ketones Urine Blood Urine Nitrate Urine Bilirubin Urine Urobilinogen Ur Leukocyte Esterase Urine WBC (Auto) Urine Bacteria Urine Yeast (Budding) Influenza Typ A,B (EIA) Pos for influenza a H 04/08/17 04/08/17 17:17 17:17 WBC RBC Hgb Hct MCV MCH MCHC RDW Plt Count MPV Neut % (Auto) Lymph % (Auto) [place] % (Auto) Eos % (Auto) Baso % (Auto) Neut # Lymph # [place] # Eos # Baso # Neutrophils % (Manual) Band Neutrophils % Lymphocytes % (Manual) Monocytes % (Manual) Eosinophils % (Manual) Metamyelocytes % Myelocytes % Nucleated RBC % Toxic Granulation Dohle Bodies Platelet Estimate Large Platelets Anisocytosis (manual) Macrocytosis (manual) Puncture Site pCO2 pO2 HCO3 ABG pH ABG Total CO2 ABG O2 Saturation ABG Base Excess Heriberto Test ABG Potassium A-a O2 Difference Respiratory Index Sodium 162 H* Chloride 134 H Glucose Lactate Vent Mode Mechanical Rate FiO2 Tidal Volume PEEP Crit Value Called To Crit Value Called By Crit Value Read Back Blood Gas Notified Time Potassium 3.9 Carbon Dioxide 17 L Anion Gap 16 BUN 76 H Creatinine 1.9 H Est GFR ( Amer) 41 Est GFR (Non-Af Amer) 34 Random Glucose 295 H Calcium 8.1 L Total Bilirubin 0.8 AST 47 ALT 45 Alkaline Phosphatase 233 H Troponin I 0.0140 NT-Pro-B Natriuret Pep 2120 H Total Protein 6.1 L Albumin 2.4 L Globulin 3.7 Albumin/Globulin Ratio 0.7 L Arterial Blood Potassium Urine Color Yellow Urine Clarity Hazy Urine pH 5.0 Ur Specific [place] 1.017 Urine Protein 2+ H Urine Glucose (UA) 1+ H Urine Ketones Negative Urine Blood Negative Urine Nitrate Negative Urine Bilirubin Negative Urine Urobilinogen Normal Ur Leukocyte Esterase 3+ H Urine WBC (Auto) 50 H Urine Bacteria Occ H Urine Yeast (Budding) Many H Influenza Typ A,B (EIA)
[2017-04-08] MEDS ORDERED: Etomidate 20 mg/10ml Inj IV STA (19:44)
[2017-04-08] MEDS ORDERED: Etomidate 20 mg/10ml Inj IV ONE (20:00)
[2017-04-08] MEDS ORDERED: Docusate-Senna 50 mg-8.6 mg Tab PO PRN (20:21)
[2017-04-08] MEDS ORDERED: Vancomycin 1 g Inj IVPB SCH (20:30)
[2017-04-08] MEDS ORDERED: Sodium Chloride 0.9% 1,000 ML IV SCH (20:45)
--- NOTE | 2017-04-08 21:17 | PCM.SEPTIC ---
Sepsis Progress Note - Reassessment Type Date of Evaluation: 04/08/17 Time of Evaluation: 21:17 (Patient remians hypotensive on Levophed, continued on IV Fluids challang and Vasopressing added) Reassessment Type: Non-invasive reassessment - Non Invasive Reassessment Were the most recent vital sign reviewed: Yes Vital Sign (Latest): Temp Pulse Resp BP Pulse Ox 97.6 F 113 H 32 H 66/29 L 100 04/08/17 14:39 04/08/17 19:21 04/08/17 19:21 04/08/17 19:21 04/08/17 19:21 Cardiovascular: Yes: Regular Rate, Rhythm. No: Edema, Gallop, JVD, Murmur Respiratory: Yes: Normal Breath Sounds. No: Accessory Muscle Use Capillary Refill: Delayed Pulses: Decreased Radial, Decreased Dorsalis Pedis, Decreased Posterior Tibialis Skin: Normal Color Was a passive leg raise performed or was a fluid challenge performed within 6 hrs of the initial fluid bolus: No Passive Leg Raise Result: Not Applicable Fluid Challenge performed: Yes
[2017-04-08] MEDS: Phenylephrine 30 MG in Sodium Chloride 0.9% 250 ML IV PRN (23:30)
[2017-04-09] MEDS: (Novolog) Insulin Aspart, Recombinant 100 u/ml 10 ml vial SC SCH ×5 (00:05→18:52)
[2017-04-09] MEDS: Albuterol-Ipratrop 3 mg / 0.5 (3 ml) UD INH SCH ×4 (01:43→19:39)
[2017-04-09] MEDS ORDERED: Meropenem 500 MG in Sodium Chloride 0.9% 100 ML IVPB SCH ×2 (06:00→18:00)
[2017-04-09] MEDS: Sodium Chloride 0.45% 1,000 ML IV SCH ×4 (06:00→20:21)
[2017-04-09 06:09] LABS: ARTERIAL BLOOD GAS HCO3 9.2 mmol/L (21-28); ARTERIAL BLOOD GAS O2 SAT 98.2 % (95-98); ARTERIAL BLOOD GAS PCO2 21 mm/Hg (35-45); ARTERIAL BLOOD GAS PH 7.14 (7.35-7.45); ARTERIAL BLOOD GAS PO2 88 mm/Hg (80-100); ARTERIAL BLOOD GAS TCO2 7.7 mmol/L (22-28)
[2017-04-09 06:39] LABS: BASO % 0.2 % (0.0-2.0); EOS % 0.4 % (0.0-4.0); HEMOGLOBIN 9.4 g/dL (12.0-18.0); LYMPH # 0.3 K/uL (1.0-4.3); LYMPH % 20.4 % (20.0-40.0); MEAN CELL VOLUME 108.7 fL (80.0-94.0); MEAN CORPUSCULAR HEMOGLOBIN 31.7 pg (27.0-31.0); MEAN CORPUSCULAR HGB CONC 29.1 g/dL (33.0-37.0); MEAN PLATELET VOLUME 12.8 fL (7.2-11.7); MONO % 1.8 % (0.0-10.0); NEUT # 1.3 K/uL (1.8-7.0); NEUT % 77.2 % (50.0-75.0); NRBC % 3.6 % (0.0-2.0); RBC 2.95 Mil/uL (4.40-5.90); RED CELL DISTRIBUTION WIDTH 22.2 % (11.5-14.5)
[2017-04-09 06:45] LABS: ALB/GLOB RATIO 0.6 (1.0-2.1); ALBUMIN 1.8 g/dL (3.5-5.0); CALCIUM 6.7 mg/dl (8.6-10.4); MAGNESIUM 2.1 mg/dL (1.6-2.3)
[2017-04-09 06:46] LABS: WHITE BLOOD COUNT 1.6 K/uL (4.8-10.8)
[2017-04-09] MEDS: Phenylephrine 30 MG in Sodium Chloride 0.9% 250 ML IV PRN ×2 (09:15→13:17)
--- NOTE | 2017-04-09 09:36 | RAD ---
HISTORY: ett placement COMPARISON: No prior. FINDINGS: LUNGS: Bilateral perihilar confluent airspace disease with superimposed pulmonary vascular congestion/ edema, unchanged. PLEURA: Small bilateral pleural effusions. No pneumothorax apparent. CARDIOVASCULAR: Normal. OSSEOUS STRUCTURES: No significant abnormalities. VISUALIZED UPPER ABDOMEN: Normal. OTHER FINDINGS: Endotracheal and enteric tubes, unchanged. Right upper extremity PICC, unchanged. IMPRESSION: No significant interval change.
[2017-04-09] MEDS ORDERED: Sodium Bicarbonate (8.4%) 50 Meq Syringe IVP ONE (09:47)
[2017-04-09] MEDS: Linezolid 600 mg in D5W 300 ml 600 MG/300 ML BAG IVPB SCH ×2 (09:56→22:04)
[2017-04-09] MEDS ORDERED: DOCUSATE 100 MG GT SCH (10:00)
[2017-04-09] MEDS ORDERED: Pantoprazole 40 mg EC Tab PO SCH (10:00)
--- NOTE | 2017-04-09 12:26 | CP.PCM.CON ---
History of Present Illness - History of Present Illness History of Present Illness: ID consult for gram neg sepsis from [place] with decubiti Presented for respiratory distress. Was here not long ago discharged after being extubated. Patient is intubated on presentation to ED. Code sepsis called. Patient is acidotic, hypotensive SBP 60. Leukopenic. Patient started on levophed, 2 L NS given. Patient continues to be at SBP in 60s despite being on pressors. Will fluid challenge again. Blood cultures taken. PMHx: Parkinson's disease, Alzeimer's disease, HTN, DM, anemia, CHF, thrombocytopenia, hematuria, PEG PSHx: R ankle surgery, bilateral eye surgery Meds: Ergocalciferol 50,000 units 1 cap PO Q7D, Aspirin 81 mg PO daily, Crestor 10mg PO QHS, Lisinopril 5mg PO daily, Glimepiride 4mg PO BID, Folic acid 1mg PO daily, Famotidine 20mg PO BID Allergies: NKDA Social: until 3 months ago lived with niece, Leonor ([phone]). Now resides at [facility]. Never smoked Family Hx: no significant family history ROS: unobtainable as patient is non-verbal. Review of Systems - Review of Systems Systems not reviewed;Unavailable: Altered Mental Status, Intubated - Constitutional Constitutional: As Per HPI - EENT Eyes: absent: As Per HPI, Blind Spots, Blurred Vision, Change in Vision, Decreased Night Vision, Diplopia, Discharge, Dry Eye, Exophthalmos, Floaters, Irritation, Itchy Eyes, Loss of Peripheral Vision, Pain, Photophobia, Requires Corrective Lenses, Sees Flashes, Spots in Vision, Tunnel Vision, Other Visual Disturbances, Loss of Vision, Other Nose/Mouth/Throat: absent: As Per HPI, Epistaxis, Nasal Congestion, Nasal Discharge, Nasal Obstruction, Nasal Trauma, Nose Pain, Post Nasal Drip, Sinus Pain, Sinus Pressure, Bleeding Gums, Change in Voice, Dental Pain, Dry Mouth, Dysphagia, Halitosis, Hoarsness, Lip Swelling, Mouth Lesions, Mouth Pain, Odynophagia, Sore Throat, Throat Swelling, Tongue Swelling, Facial Pain, Neck Pain, Neck Mass, Other - Cardiovascular Cardiovascular: As Per HPI - Respiratory Respiratory: As Per HPI - Gastrointestinal Gastrointestinal: absent: As Per HPI, Abdominal Pain, Belching, Bloating, Change in Bowel Habits, Change in Stool Character, Coffee Ground Emesis, Constipation, Cramping, Diarrhea, Dyspepsia, Dysphagia, Early Satiety, Excessive Flatus, Fecal Incontinence, Heartburn, Hematemesis, Hematochezia, Loose Stools, Melena, Nausea, Odynophagia, Temesmus, Vomiting, Other - Genitourinary Genitourinary: absent: As Per HPI, Change in Urinary Stream, Difficulty Urinating, Dysuria, Flank Pain, Hematuria, Pyuria, Nocturia, Urinary Incontinence, Urinary Frequency, Urinary Hesitance, Urinary Urgency, Voiding Freq/Small Amts, Freq UTI, Hx Renal/Bladder Calculi, Hx /Renal Surgery, Bladder Distension, Other - Musculoskeletal Musculoskeletal: As Per HPI - Integumentary Integumentary: As Per HPI - Psychiatric Psychiatric: absent: As Per HPI, Abnormal Sleep Pattern, Anhedonia, Anxiety, Auditory Hallucinations, Behavioral Changes, Change in Appetite, Change in Libido, Confusion, Depression, Difficulty Concentrating, Hallucinations, Homicidal Ideation, Hopelessness, Irritability, Memory Loss, Mood Swings, Panic Attacks, Paranoia, Suicidal Ideation, Visual Hallucinations, Tactile Hallucinations, Other - Endocrine Endocrine: absent: As Per HPI, Change in Body Appearance, Change in Libido, Cold Intolorance, Deepening of Voice, Excessive Sweating, Fatigue, Flushing, Heat Intolorance, Increase in Ring/Shoe/Hat Size, Palpitations, Polydipsia, Polyphagia, Polyuria, Other - Hematologic/Lymphatic Hematologic: absent: As Per HPI, Easy Bleeding, Easy Bruising, Lymphadenopathy, Other Past Patient History - Infectious Disease Hx of Infectious Diseases: None - Past Medical History & Family History Past Medical History?: Yes - Past Social History Smoking Status: No - CARDIAC Hx Cardiac Disorders: Yes Hx Congestive Heart Failure: Yes Hx Hypercholesterolemia: Yes Hx Hypertension: Yes - PULMONARY Hx Respiratory Disorders: No - NEUROLOGICAL Hx Neurological Disorder: Yes Hx Alzheimer's Disease: Yes Hx Parkinson's Disease: Yes - HEENT 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 area as per niece - MUSCULOSKELETAL/RHEUMATOLOGICAL Hx Musculoskeletal Disorders: Yes Hx Falls: Yes - GASTROINTESTINAL Hx Gastrointestinal Disorders: Yes Hx Constipation: Yes Hx Diarrhea: Yes - GENITOURINARY/GYNECOLOGICAL Hx Genitourinary Disorders: Yes Hx Incontinence: Yes - PSYCHIATRIC Hx Psychophysiologic Disorder: No Hx Substance Use: No - SURGICAL HISTORY Hx Surgeries: Yes (right ankle surgery, bilateral eye surgeries) - ANESTHESIA Hx Anesthesia: Yes Hx Anesthesia Reactions: No Hx Malignant Hyperthermia: No Has any member of the family had a problem w/ anesthesia?: No Meds Allergies/Adverse Reactions: Allergies Allergy/AdvReac Type Severity Reaction Status Date / Time No Known Allergies Allergy Verified 04/08/17 14:45 - Medications Medications: Current Medications Albuterol/Ipratropium (Duoneb 3 Mg/0.5 Mg (3 Ml) Ud) 3 ml INH RQ6 AUGUST Last Admin: 04/09/17 07:10 Dose: 3 ml Carbidopa/Levodopa (Sinemet 10/100) 1 tab GT QID [facility] Last Admin: 04/09/17 09:02 Dose: 1 tab Docusate Sodium (Colace) 100 mg GT TID [facility] Last Admin: 04/09/17 09:00 Dose: Not Given Famotidine (Pepcid) 20 mg IVP DAILY [facility] Last Admin: 04/09/17 09:01 Dose: 20 mg Midazolam HCl 100 mg/ Dextrose 100 mls @ 1.27 mls/hr IV .Q24H AUGUST; 0.02 MG/KG/ HR PRN Reason: Protocol Last Admin: 04/08/17 18:00 Dose: Not Given Norepinephrine Bitartrate 8 mg (/ Dextrose) 258 mls @ 38.7 mls/hr IV .Q6H40M PRN; Protocol; 20 MCG/MIN PRN Reason: TITRATE PER MD ORDER Last Admin: 04/09/17 07:30 Dose: 20 mcg/min, 38.7 mls/hr Vasopressin 40 units/ Sodium (Chloride) 40 mls @ 0.6 mls/hr IV .Q24H PRN; Protocol; 0.01 UNITS/MIN PRN Reason: PER PROTOCOL Last Admin: 04/08/17 20:30 Dose: 0.01 units/min, 0.6 mls/hr Sodium Chloride (Sodium Chloride 0.45%) 1,000 mls @ 150 mls/hr IV .Q6H40M [facility] Last Admin: 04/09/17 06:30 Dose: 150 mls/hr Phenylephrine HCl 30 mg/ (Sodium Chloride) 253 mls @ 10.12 mls/hr IV .Q24H PRN ; Protocol; 20 MCG/MIN PRN Reason: TITRATE PER MD ORDER Last Titration: 04/09/17 11:00 Dose: 130 mcg/min, 65.78 mls/hr Linezolid (Zyvox 600mg/300ml D5w) 600 mg in 300 mls @ 200 mls/hr IVPB Q12 AUGUST Last Admin: 04/09/17 09:56 Dose: 200 mls/hr Meropenem 500 mg/ Sodium (Chloride) 100 mls @ 100 mls/hr IVPB Q12H AUGUST Insulin Aspart (Novolog) 0 unit SC Q4 AUGUST PRN Reason: Protocol Last Admin: 04/09/17 12:01 Dose: Not Given Oseltamivir Phosphate (Tamiflu Cap) 75 mg PO BID [facility] Stop: 04/13/17 20:33 Last Admin: 04/09/17 09:01 Dose: 75 mg Senna/Docusate Sodium (Senokot S 50 Mg-8.6 Mg) 1 tab PO DAILY PRN PRN Reason: Constipation Physical Exam - Constitutional Appears: Toxic, Confused, Cachectic, Chronically Ill - Head Exam Head Exam: NORMOCEPHALIC - Eye Exam Eye Exam: absent: Scleral icterus - ENT Exam ENT Exam: Mucous Membranes Dry - Neck Exam Neck exam: Negative for: Lymphadenopathy - Respiratory Exam Respiratory Exam: Decreased Breath Sounds, Rhonchi - Cardiovascular Exam Cardiovascular Exam: Tachycardia, REGULAR RHYTHM, +S1, +S2 - GI/Abdominal Exam GI & Abdominal Exam: Diminished Bowel Sounds, Soft. absent: Tenderness - Rectal Exam Rectal Exam: Deferred - Exam Exam: NORMAL INSPECTION - Extremities Exam Extremities exam: Positive for: pedal pulses present. Negative for: calf tenderness, pedal edema, tenderness - Back Exam Back exam: absent: CVA tenderness (L), CVA tenderness (R) - Neurological Exam Neurological exam: Altered - Psychiatric Exam Psychiatric exam: Depressed - Skin Skin Exam: Dry Results - Vital Signs Recent Vital Signs: Last Vital Signs Temp 96 F L 04/09/17 00:00 Pulse 114 H 04/09/17 09:15 Resp 27 H 04/09/17 09:15 BP 95/38 L 04/09/17 09:15 Pulse Ox 99 04/09/17 09:15 - Labs Result Diagrams: 04/09/17 06:22 04/09/17 06:22 Labs: Laboratory Results - last 24 hr 04/08/17 04/08/17 04/08/17 15:44 17:10 17:17 WBC 1.6 L* D RBC 2.97 L Hgb 9.4 L Hct 30.6 L MCV 103.1 H D MCH 31.7 H MCHC 30.7 L RDW 21.2 H Plt Count 111 L D MPV 11.5 Neut % (Auto) 88.8 H Lymph % (Auto) 5.4 L Barron % (Auto) 5.2 Eos % (Auto) 0.6 Baso % (Auto) 0.0 Neut # 1.4 L Lymph # 0.1 L Barron # 0.1 Eos # 0.0 Baso # 0.0 Neutrophils % (Manual) 59 Band Neutrophils % 28 H* Lymphocytes % (Manual) 4 L Monocytes % (Manual) 1 Eosinophils % (Manual) 1 Metamyelocytes % 3 H Myelocytes % 4 H Nucleated RBC % 1 H Toxic Granulation Present Dohle Bodies Present Platelet Estimate Slightly decreased L Large Platelets Present Anisocytosis (manual) Moderate Macrocytosis (manual) Moderate Puncture Site Lba pCO2 27 L pO2 139 H HCO3 18.3 L ABG pH 7.36 ABG Total CO2 16.1 L ABG O2 Saturation 100.8 H ABG Base Excess -8.6 L ABG Hemoglobin ABG Carboxyhemoglobin POC ABG HHb (Measured) ABG Methemoglobin Heriberto Test Yes ABG Potassium 3.6 A-a O2 Difference 540.0 Respiratory Index 3.9 Hgb O2 Saturation Sodium 161.0 H* Chloride 135.0 H Glucose 289 H Lactate 7.7 H* Vent Mode Prvc Mechanical Rate 12 FiO2 100.0 Tidal Volume 500 PEEP 5 Crit Value Called To regulatory attorneymelchor leone Crit Value Called By Teresa collection systems consultant Crit Value Read Back Y Blood Gas Notified Time 1721 Potassium Carbon Dioxide Anion Gap BUN Creatinine Est GFR ( Amer) Est GFR (Non-Af Amer) POC Glucose (mg/dL) Random Glucose Lactic Acid Calcium Phosphorus Magnesium Total Bilirubin AST ALT Alkaline Phosphatase Troponin I NT-Pro-B Natriuret Pep Total Protein Albumin Globulin Albumin/Globulin Ratio Arterial Blood Potassium 3.6 Urine Color Urine Clarity Urine pH Ur Specific [place] Urine Protein Urine Glucose (UA) Urine Ketones Urine Blood Urine Nitrate Urine Bilirubin Urine Urobilinogen Ur Leukocyte Esterase Urine WBC (Auto) Urine Bacteria Urine Yeast (Budding) Influenza Typ A,B (EIA) Pos for influenza a H 04/08/17 04/08/17 04/08/17 17:17 17:17 20:11 WBC RBC Hgb Hct MCV MCH MCHC RDW Plt Count MPV Neut % (Auto) Lymph % (Auto) Barron % (Auto) Eos % (Auto) Baso % (Auto) Neut # Lymph # Barron # Eos # Baso # Neutrophils % (Manual) Band Neutrophils % Lymphocytes % (Manual) Monocytes % (Manual) Eosinophils % (Manual) Metamyelocytes % Myelocytes % Nucleated RBC % Toxic Granulation Dohle Bodies Platelet Estimate Large Platelets Anisocytosis (manual) Macrocytosis (manual) Puncture Site pCO2 pO2 HCO3 ABG pH ABG Total CO2 ABG O2 Saturation ABG Base Excess ABG Hemoglobin ABG Carboxyhemoglobin POC ABG HHb (Measured) ABG Methemoglobin Heriberto Test ABG Potassium A-a O2 Difference Respiratory Index Hgb O2 Saturation Sodium 162 H* Chloride 134 H Glucose Lactate Vent Mode Mechanical Rate FiO2 Tidal Volume PEEP Crit Value Called To Crit Value Called By Crit Value Read Back Blood Gas Notified Time Potassium 3.9 Carbon Dioxide 17 L Anion Gap 16 BUN 76 H Creatinine 1.9 H Est GFR ( Amer) 41 Est GFR (Non-Af Amer) 34 POC Glucose (mg/dL) Random Glucose 295 H Lactic Acid 9.4 H* Calcium 8.1 L Phosphorus Magnesium Total Bilirubin 0.8 AST 47 ALT 45 Alkaline Phosphatase 233 H Troponin I 0.0140 NT-Pro-B Natriuret Pep 2120 H Total Protein 6.1 L Albumin 2.4 L Globulin 3.7 Albumin/Globulin Ratio 0.7 L Arterial Blood Potassium Urine Color Yellow Urine Clarity Hazy Urine pH 5.0 Ur Specific [place] 1.017 Urine Protein 2+ H Urine Glucose (UA) 1+ H Urine Ketones Negative Urine Blood Negative Urine Nitrate Negative Urine Bilirubin Negative Urine Urobilinogen Normal Ur Leukocyte Esterase 3+ H Urine WBC (Auto) 50 H Urine Bacteria Occ H Urine Yeast (Budding) Many H Influenza Typ A,B (EIA) 04/08/17 04/08/17 04/09/17 21:32 23:48 04:27 WBC RBC Hgb Hct MCV MCH MCHC RDW Plt Count MPV Neut % (Auto) Lymph % (Auto) Barron % (Auto) Eos % (Auto) Baso % (Auto) Neut # Lymph # Barron # Eos # Baso # Neutrophils % (Manual) Band Neutrophils % Lymphocytes % (Manual) Monocytes % (Manual) Eosinophils % (Manual) Metamyelocytes % Myelocytes % Nucleated RBC % Toxic Granulation Dohle Bodies Platelet Estimate Large Platelets Anisocytosis (manual) Macrocytosis (manual) Puncture Site pCO2 pO2 HCO3 ABG pH ABG Total CO2 ABG O2 Saturation ABG Base Excess ABG Hemoglobin ABG Carboxyhemoglobin POC ABG HHb (Measured) ABG Methemoglobin Heriberto Test ABG Potassium A-a O2 Difference Respiratory Index Hgb O2 Saturation Sodium Chloride Glucose Lactate Vent Mode Mechanical Rate FiO2 Tidal Volume PEEP Crit Value Called To Crit Value Called By Crit Value Read Back Blood Gas Notified Time Potassium Carbon Dioxide Anion Gap BUN Creatinine Est GFR ( Amer) Est GFR (Non-Af Amer) POC Glucose (mg/dL) 130 H 105 86 Random Glucose Lactic Acid Calcium Phosphorus Magnesium Total Bilirubin AST ALT Alkaline Phosphatase Troponin I NT-Pro-B Natriuret Pep Total Protein Albumin Globulin Albumin/Globulin Ratio Arterial Blood Potassium Urine Color Urine Clarity Urine pH Ur Specific [place] Urine Protein Urine Glucose (UA) Urine Ketones Urine Blood Urine Nitrate Urine Bilirubin Urine Urobilinogen Ur Leukocyte Esterase Urine WBC (Auto) Urine Bacteria Urine Yeast (Budding) Influenza Typ A,B (EIA) 04/09/17 04/09/17 04/09/17 05:40 06:22 06:22 WBC 1.6 L* RBC 2.95 L Hgb 9.4 L Hct 32.1 L MCV 108.7 H D MCH 31.7 H MCHC 29.1 L RDW 22.2 H Plt Count 51 L D MPV 12.8 H Neut % (Auto) 77.2 H Lymph % (Auto) 20.4 Barron % (Auto) 1.8 Eos % (Auto) 0.4 Baso % (Auto) 0.2 Neut # 1.3 L Lymph # 0.3 L Barron # 0.0 Eos # 0.0 Baso # 0.0 Neutrophils % (Manual) Band Neutrophils % Lymphocytes % (Manual) Monocytes % (Manual) Eosinophils % (Manual) Metamyelocytes % Myelocytes % Nucleated RBC % Toxic Granulation Dohle Bodies Platelet Estimate Large Platelets Anisocytosis (manual) Macrocytosis (manual) Puncture Site L bra pCO2 21 L pO2 88 HCO3 9.2 L* ABG pH 7.14 L* ABG Total CO2 7.7 L ABG O2 Saturation 98.2 H ABG Base Excess -20.1 L ABG Hemoglobin 9.0 L ABG Carboxyhemoglobin 1.8 H POC ABG HHb (Measured) 1.7 ABG Methemoglobin 1.5 Heriberto Test Na ABG Potassium A-a O2 Difference 599.0 Respiratory Index 6.8 Hgb O2 Saturation 95.1 Sodium 160 H* Chloride 134 H Glucose Lactate Vent Mode Prvc Mechanical Rate 22 FiO2 100.0 Tidal Volume 500 PEEP 5 Crit Value Called To [employer] chair Crit Value Called By Alix buck rt Crit Value Read Back Y Blood Gas Notified Time 609 Potassium 3.8 Carbon Dioxide 10 L* D Anion Gap 20 BUN 70 H Creatinine 2.1 H Est GFR ( Amer) 36 Est GFR (Non-Af Amer) 30 POC Glucose (mg/dL) Random Glucose 90 Lactic Acid Calcium 6.7 L Phosphorus 4.5 Magnesium 2.1 Total Bilirubin 1.0 AST 155 H D ALT 93 H D Alkaline Phosphatase 155 H D Troponin I NT-Pro-B Natriuret Pep Total Protein 4.6 L Albumin 1.8 L D Globulin 2.9 Albumin/Globulin Ratio 0.6 L Arterial Blood Potassium Urine Color Urine Clarity Urine pH Ur Specific [place] Urine Protein Urine Glucose (UA) Urine Ketones Urine Blood Urine Nitrate Urine Bilirubin Urine Urobilinogen Ur Leukocyte Esterase Urine WBC (Auto) Urine Bacteria Urine Yeast (Budding) Influenza Typ A,B (EIA) 04/09/17 04/09/17 08:51 11:39 WBC RBC Hgb Hct MCV MCH MCHC RDW Plt Count MPV Neut % (Auto) Lymph % (Auto) Barron % (Auto) Eos % (Auto) Baso % (Auto) Neut # Lymph # Barron # Eos # Baso # Neutrophils % (Manual) Band Neutrophils % Lymphocytes % (Manual) Monocytes % (Manual) Eosinophils % (Manual) Metamyelocytes % Myelocytes % Nucleated RBC % Toxic Granulation Dohle Bodies Platelet Estimate Large Platelets Anisocytosis (manual) Macrocytosis (manual) Puncture Site pCO2 pO2 HCO3 ABG pH ABG Total CO2 ABG O2 Saturation ABG Base Excess ABG Hemoglobin ABG Carboxyhemoglobin POC ABG HHb (Measured) ABG Methemoglobin Heriberto Test ABG Potassium A-a O2 Difference Respiratory Index Hgb O2 Saturation Sodium Chloride Glucose Lactate Vent Mode Mechanical Rate FiO2 Tidal Volume PEEP Crit Value Called To Crit Value Called By Crit Value Read Back Blood Gas Notified Time Potassium Carbon Dioxide Anion Gap BUN Creatinine Est GFR ( Amer) Est GFR (Non-Af Amer) POC Glucose (mg/dL) 76 74 Random Glucose Lactic Acid Calcium Phosphorus Magnesium Total Bilirubin AST ALT Alkaline Phosphatase Troponin I NT-Pro-B Natriuret Pep Total Protein Albumin Globulin Albumin/Globulin Ratio Arterial Blood Potassium Urine Color Urine Clarity Urine pH Ur Specific [place] Urine Protein Urine Glucose (UA) Urine Ketones Urine Blood Urine Nitrate Urine Bilirubin Urine Urobilinogen Ur Leukocyte Esterase Urine WBC (Auto) Urine Bacteria Urine Yeast (Budding) Influenza Typ A,B (EIA) Assessment & Plan (1) Respiratory distress Status: Acute (2) CHF (congestive heart failure) Status: Chronic (3) CLEMENT (acute kidney injury) Status: Acute Priority: High (4) Altered mental status Status: Acute Priority: High (5) Respiratory failure with hypoxia and hypercapnia Status: Acute Priority: High Onset Date: ~03/21/17 (6) Septic shock Status: Acute - Assessment and Plan (Free Text) Assessment: cont iv antibiotics and supportive care poor prognosis
--- NOTE | 2017-04-09 13:58 | CP.CCUPN ---
<Henry Louie - Last Filed: 04/09/17 13:55> CCU Subjective - Physician Review Subjective (Free Text): 04/09/17 13:55 Patient seen and examined at bedside patient on phenylephrin, levophed and vasopressin continues to be hypotensive spoke to family today aware of poor prognosis, patient made DNR CCU Objective - Vital Signs / Intake & Output Vital Signs (Last 4 hours): Vital Signs BP 04/09/17 13:18 116/66 04/09/17 13:17 116/66 04/09/17 13:16 116 Intake and Output (Last 8hrs): Intake & Output 04/08/17 04/09/17 04/09/17 22:59 06:59 14:59 Intake Total 2080.4 2146.8 1045.1 Output Total 45 565 10 Balance 2035.4 1581.8 1035.1 Weight 120 lb 5.958 oz Intake: IV 258 804 Intake, IV Amount 2080.4 1888.8 241.1 Right Distal Port PICC 2000 Right Hand 1200 150 Right Medial Port PICC 360 50 Right PICC 77.4 309.6 38.7 Right Proximal Port PICC 3.0 19.2 2.4 Output: Urine 45 115 10 Urethral (Siu) 45 115 10 Stool 0 450 0 Other: # Bowel Movements 1 - Physical Exam Head: Positive for: Atraumatic, Normocephalic Mouth: Positive for: Moist Mucous Membranes Respiratory/Chest: Positive for: Wheezes, Other (intubated) Cardiovascular: Positive for: Regular Rate and Rhythm, Tachycardic Abdomen: Positive for: Normal Bowel Sounds. Negative for: Tenderness, Distention, Peritoneal Signs Skin: Positive for: Warm, Dry. Negative for: Rashes - Medications Active Medications: Active Medications Generic Name Dose Route Start Last Admin Trade Name Freq PRN Reason Stop Dose Admin Albuterol/Ipratropium 3 ml 04/09/17 02:00 04/09/17 07:10 Duoneb 3 Mg/0.5 Mg (3 Ml) Ud INH 3 ml RQ6 AUGUST Administration Carbidopa/Levodopa 1 tab 04/08/17 22:00 04/09/17 13:27 Sinemet 10/100 GT 1 tab QID AUGUST Administration Docusate Sodium 100 mg 04/09/17 10:00 04/09/17 13:28 Colace GT Not Given TID AUGUST Famotidine 20 mg 04/09/17 10:00 04/09/17 09:01 Pepcid IVP 20 mg DAILY AUGUST Administration Midazolam HCl 100 mg/ Dextrose 100 mls @ 1.27 mls/hr 04/08/17 17:00 04/08/17 18:00 IV Not Given .Q24H AUGUST Protocol 0.02 MG/KG/HR Norepinephrine Bitartrate 8 mg 258 mls @ 38.7 mls/hr 04/08/17 17:36 04/09/17 13:18 / Dextrose IV 20 mcg/min .Q6H40M PRN 38.7 mls/hr TITRATE PER MD ORDER Administration Protocol 20 MCG/MIN Vasopressin 40 units/ Sodium 40 mls @ 0.6 mls/hr 04/08/17 20:15 04/09/17 13: 16 Chloride IV 0.04 units/min .Q24H PRN 2.4 mls/hr PER PROTOCOL Administration Protocol 0.01 UNITS/MIN Sodium Chloride 1,000 mls @ 150 mls/hr 04/08/17 23:30 04/09/17 13:14 Sodium Chloride 0.45% IV 150 mls/hr .Q6H40M AUGUST Administration Linezolid 600 mg in 300 mls @ 200 mls/hr 04/09/17 10:00 04/09/17 09:56 Zyvox 600mg/300ml D5w IVPB 200 mls/hr Q12 AUGUST Administration Meropenem 500 mg/ Sodium 100 mls @ 100 mls/hr 04/09/17 18:00 Chloride IVPB Q12H AUGUST Phenylephrine HCl 60 mg/ 250 mls @ 2.5 mls/hr 04/09/17 15:00 Sodium Chloride IV .Q24H PRN TITRATE PER MD ORDER Protocol 10 MCG/MIN Insulin Aspart 0 unit 04/09/17 00:00 04/09/17 12:01 Novolog SC Not Given Q4 AUGUST Protocol Oseltamivir Phosphate 75 mg 04/08/17 20:45 04/09/17 09:01 Tamiflu Cap PO 04/13/17 20:33 75 mg BID AUGUST Administration Senna/Docusate Sodium 1 tab 04/08/17 20:21 Senokot S 50 Mg-8.6 Mg PO DAILY PRN Constipation - Patient Studies Lab Studies: Lab Studies 04/09/17 04/09/17 04/09/17 Range/Units 11:39 08:51 06:22 WBC (4.8-10.8) K/uL RBC (4.40-5.90) Mil/uL Hgb (12.0-18.0) g/dL Hct (35.0-51.0) % MCV (80.0-94.0) fL MCH (27.0-31.0) pg MCHC (33.0-37.0) g/dL RDW (11.5-14.5) % Plt Count (130-400) K/uL MPV (7.2-11.7) fL Neut % (Auto) (50.0-75.0) % Lymph % (Auto) (20.0-40.0) % [place] % (Auto) (0.0-10.0) % Eos % (Auto) (0.0-4.0) % Baso % (Auto) (0.0-2.0) % Neut # (1.8-7.0) K/uL Lymph # (1.0-4.3) K/uL [place] # (0.0-0.8) K/uL Eos # (0.0-0.7) K/uL Baso # (0.0-0.2) K/uL Neutrophils % (Manual) (50-75) % Band Neutrophils % (0-2) % Lymphocytes % (Manual) (20-40) % Monocytes % (Manual) (0-10) % Eosinophils % (Manual) (0-4) % Metamyelocytes % (0-0) % Myelocytes % (0-0) % Nucleated RBC % (0-0) % Toxic Granulation Dohle Bodies Platelet Estimate (NORMAL) Large Platelets Anisocytosis (manual) Macrocytosis (manual) Puncture Site pCO2 (35-45) mm/Hg pO2 (80-100) mm/Hg HCO3 (21-28) mmol/L ABG pH (7.35-7.45) ABG Total CO2 (22-28) mmol/L ABG O2 Saturation (95-98) % ABG Base Excess (-2.0-3.0) mmol/L ABG Hemoglobin (11.7-17.4) g/dL ABG Carboxyhemoglobin (0.5-1.5) % POC ABG HHb (Measured) (0.0-5.0) % ABG Methemoglobin (0.0-3.0) % Heriberot Test ABG Potassium (3.6-5.2) mmol/L A-a O2 Difference mm/Hg Respiratory Index Hgb O2 Saturation (95.0-98.0) % Sodium 160 H* (132-148) mmol/l Chloride 134 H (98-107) mmol/L Glucose (75-110) mg/dl Lactate (0.7-2.1) mmol/L Vent Mode Mechanical Rate FiO2 % Tidal Volume PEEP Crit Value Called To Crit Value Called By Crit Value Read Back Blood Gas Notified Time Potassium 3.8 (3.6-5.2) mmol/L Carbon Dioxide 10 L* D (22-30) mmol/L Anion Gap 20 (10-20) BUN 70 H (9-20) mg/dL Creatinine 2.1 H (0.8-1.5) mg/dL Est GFR ( Amer) 36 Est GFR (Non-Af Amer) 30 POC Glucose (mg/dL) 74 76 (65-110) mg/dL Random Glucose 90 (75-110) mg/dL Lactic Acid (0.7-2.1) mmol/L Calcium 6.7 L (8.6-10.4) mg/dl Phosphorus 4.5 (2.5-4.5) mg/dL Magnesium 2.1 (1.6-2.3) mg/dL Total Bilirubin 1.0 (0.2-1.3) mg/dL AST 155 H D (17-59) U/L ALT 93 H D (21-72) U/L Alkaline Phosphatase 155 H D (38-126) U/L Troponin I (0.00-0.120) ng/mL NT-Pro-B Natriuret Pep (0-900) pg/mL Total Protein 4.6 L (6.3-8.3) g/dL Albumin 1.8 L D (3.5-5.0) g/dL Globulin 2.9 (2.2-3.9) gm/dL Albumin/Globulin Ratio 0.6 L (1.0-2.1) Arterial Blood Potassium (3.6-5.2) mmol/L Urine Color (YELLOW) Urine Clarity (Clear) Urine pH (5.0-8.0) Ur Specific [place] (1.003-1.030) Urine Protein (NEGATIVE) mg/dL Urine Glucose (UA) (Normal) mg/dL Urine Ketones (NEGATIVE) mg/dL Urine Blood (NEGATIVE) Urine Nitrate (NEGATIVE) Urine Bilirubin (NEGATIVE) Urine Urobilinogen (0.2-1.0) mg/dL Ur Leukocyte Esterase (Negative) Adolfo/uL Urine WBC (Auto) (0-5) /hpf Urine Bacteria (<OCC) Urine Yeast (Budding) (NEGATIVE) /hpf Influenza Typ A,B (EIA) (NEGATIVE) 04/09/17 04/09/17 04/09/17 Range/Units 06:22 05:40 04:27 WBC 1.6 L* (4.8-10.8) K/uL RBC 2.95 L (4.40-5.90) Mil/uL Hgb 9.4 L (12.0-18.0) g/dL Hct 32.1 L (35.0-51.0) % MCV 108.7 H D (80.0-94.0) fL MCH 31.7 H (27.0-31.0) pg MCHC 29.1 L (33.0-37.0) g/dL RDW 22.2 H (11.5-14.5) % Plt Count 51 L D (130-400) K/uL MPV 12.8 H (7.2-11.7) fL Neut % (Auto) 77.2 H (50.0-75.0) % Lymph % (Auto) 20.4 (20.0-40.0) % [place] % (Auto) 1.8 (0.0-10.0) % Eos % (Auto) 0.4 (0.0-4.0) % Baso % (Auto) 0.2 (0.0-2.0) % Neut # 1.3 L (1.8-7.0) K/uL Lymph # 0.3 L (1.0-4.3) K/uL [place] # 0.0 (0.0-0.8) K/uL Eos # 0.0 (0.0-0.7) K/uL Baso # 0.0 (0.0-0.2) K/uL Neutrophils % (Manual) (50-75) % Band Neutrophils % (0-2) % Lymphocytes % (Manual) (20-40) % Monocytes % (Manual) (0-10) % Eosinophils % (Manual) (0-4) % Metamyelocytes % (0-0) % Myelocytes % (0-0) % Nucleated RBC % (0-0) % Toxic Granulation Dohle Bodies Platelet Estimate (NORMAL) Large Platelets Anisocytosis (manual) Macrocytosis (manual) Puncture Site L bra pCO2 21 L (35-45) mm/Hg pO2 88 (80-100) mm/Hg HCO3 9.2 L* (21-28) mmol/L ABG pH 7.14 L* (7.35-7.45) ABG Total CO2 7.7 L (22-28) mmol/L ABG O2 Saturation 98.2 H (95-98) % ABG Base Excess -20.1 L (-2.0-3.0) mmol/L ABG Hemoglobin 9.0 L (11.7-17.4) g/dL ABG Carboxyhemoglobin 1.8 H (0.5-1.5) % POC ABG HHb (Measured) 1.7 (0.0-5.0) % ABG Methemoglobin 1.5 (0.0-3.0) % Heriberto Test Na ABG Potassium (3.6-5.2) mmol/L A-a O2 Difference 599.0 mm/Hg Respiratory Index 6.8 Hgb O2 Saturation 95.1 (95.0-98.0) % Sodium (132-148) mmol/l Chloride (98-107) mmol/L Glucose (75-110) mg/dl Lactate (0.7-2.1) mmol/L Vent Mode Prvc Mechanical Rate 22 FiO2 100.0 % Tidal Volume 500 PEEP 5 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 Crit Value Called By Alix buck rt Crit Value Read Back Y Blood Gas Notified Time 609 Potassium (3.6-5.2) mmol/L Carbon Dioxide (22-30) mmol/L Anion Gap (10-20) BUN (9-20) mg/dL Creatinine (0.8-1.5) mg/dL Est GFR ( Amer) Est GFR (Non-Af Amer) POC Glucose (mg/dL) 86 (65-110) mg/dL Random Glucose (75-110) mg/dL Lactic Acid (0.7-2.1) mmol/L Calcium (8.6-10.4) mg/dl Phosphorus (2.5-4.5) mg/dL Magnesium (1.6-2.3) mg/dL Total Bilirubin (0.2-1.3) mg/dL AST (17-59) U/L ALT (21-72) U/L Alkaline Phosphatase (38-126) U/L Troponin I (0.00-0.120) ng/mL NT-Pro-B Natriuret Pep (0-900) pg/mL Total Protein (6.3-8.3) g/dL Albumin (3.5-5.0) g/dL Globulin (2.2-3.9) gm/dL Albumin/Globulin Ratio (1.0-2.1) Arterial Blood Potassium (3.6-5.2) mmol/L Urine Color (YELLOW) Urine Clarity (Clear) Urine pH (5.0-8.0) Ur Specific [place] (1.003-1.030) Urine Protein (NEGATIVE) mg/dL Urine Glucose (UA) (Normal) mg/dL Urine Ketones (NEGATIVE) mg/dL Urine Blood (NEGATIVE) Urine Nitrate (NEGATIVE) Urine Bilirubin (NEGATIVE) Urine Urobilinogen (0.2-1.0) mg/dL Ur Leukocyte Esterase (Negative) Adolfo/uL Urine WBC (Auto) (0-5) /hpf Urine Bacteria (<OCC) Urine Yeast (Budding) (NEGATIVE) /hpf Influenza Typ A,B (EIA) (NEGATIVE) 04/08/17 04/08/17 04/08/17 Range/Units 23:48 21:32 20:11 WBC (4.8-10.8) K/uL RBC (4.40-5.90) Mil/uL Hgb (12.0-18.0) g/dL Hct (35.0-51.0) % MCV (80.0-94.0) fL MCH (27.0-31.0) pg MCHC (33.0-37.0) g/dL RDW (11.5-14.5) % Plt Count (130-400) K/uL MPV (7.2-11.7) fL Neut % (Auto) (50.0-75.0) % Lymph % (Auto) (20.0-40.0) % [place] % (Auto) (0.0-10.0) % Eos % (Auto) (0.0-4.0) % Baso % (Auto) (0.0-2.0) % Neut # (1.8-7.0) K/uL Lymph # (1.0-4.3) K/uL [place] # (0.0-0.8) K/uL Eos # (0.0-0.7) K/uL Baso # (0.0-0.2) K/uL Neutrophils % (Manual) (50-75) % Band Neutrophils % (0-2) % Lymphocytes % (Manual) (20-40) % Monocytes % (Manual) (0-10) % Eosinophils % (Manual) (0-4) % Metamyelocytes % (0-0) % Myelocytes % (0-0) % Nucleated RBC % (0-0) % Toxic Granulation Dohle Bodies Platelet Estimate (NORMAL) Large Platelets Anisocytosis (manual) Macrocytosis (manual) Puncture Site pCO2 (35-45) mm/Hg pO2 (80-100) mm/Hg HCO3 (21-28) mmol/L ABG pH (7.35-7.45) ABG Total CO2 (22-28) mmol/L ABG O2 Saturation (95-98) % ABG Base Excess (-2.0-3.0) mmol/L ABG Hemoglobin (11.7-17.4) g/dL ABG Carboxyhemoglobin (0.5-1.5) % POC ABG HHb (Measured) (0.0-5.0) % ABG Methemoglobin (0.0-3.0) % Heriberto Test ABG Potassium (3.6-5.2) mmol/L A-a O2 Difference mm/Hg Respiratory Index Hgb O2 Saturation (95.0-98.0) % Sodium (132-148) mmol/l Chloride (98-107) mmol/L Glucose (75-110) mg/dl Lactate (0.7-2.1) mmol/L Vent Mode Mechanical Rate FiO2 % Tidal Volume PEEP Crit Value Called To Crit Value Called By Crit Value Read Back Blood Gas Notified Time Potassium (3.6-5.2) mmol/L Carbon Dioxide (22-30) mmol/L Anion Gap (10-20) BUN (9-20) mg/dL Creatinine (0.8-1.5) mg/dL Est GFR ( Amer) Est GFR (Non-Af Amer) POC Glucose (mg/dL) 105 130 H (65-110) mg/dL Random Glucose (75-110) mg/dL Lactic Acid 9.4 H* (0.7-2.1) mmol/L Calcium (8.6-10.4) mg/dl Phosphorus (2.5-4.5) mg/dL Magnesium (1.6-2.3) mg/dL Total Bilirubin (0.2-1.3) mg/dL AST (17-59) U/L ALT (21-72) U/L Alkaline Phosphatase (38-126) U/L Troponin I (0.00-0.120) ng/mL NT-Pro-B Natriuret Pep (0-900) pg/mL Total Protein (6.3-8.3) g/dL Albumin (3.5-5.0) g/dL Globulin (2.2-3.9) gm/dL Albumin/Globulin Ratio (1.0-2.1) Arterial Blood Potassium (3.6-5.2) mmol/L Urine Color (YELLOW) Urine Clarity (Clear) Urine pH (5.0-8.0) Ur Specific [place] (1.003-1.030) Urine Protein (NEGATIVE) mg/dL Urine Glucose (UA) (Normal) mg/dL Urine Ketones (NEGATIVE) mg/dL Urine Blood (NEGATIVE) Urine Nitrate (NEGATIVE) Urine Bilirubin (NEGATIVE) Urine Urobilinogen (0.2-1.0) mg/dL Ur Leukocyte Esterase (Negative) Adolfo/uL Urine WBC (Auto) (0-5) /hpf Urine Bacteria (<OCC) Urine Yeast (Budding) (NEGATIVE) /hpf Influenza Typ A,B (EIA) (NEGATIVE) 04/08/17 04/08/17 04/08/17 Range/Units 17:17 17:17 17:17 WBC 1.6 L* D (4.8-10.8) K/uL RBC 2.97 L (4.40-5.90) Mil/uL Hgb 9.4 L (12.0-18.0) g/dL Hct 30.6 L (35.0-51.0) % MCV 103.1 H D (80.0-94.0) fL MCH 31.7 H (27.0-31.0) pg MCHC 30.7 L (33.0-37.0) g/dL RDW 21.2 H (11.5-14.5) % Plt Count 111 L D (130-400) K/uL MPV 11.5 (7.2-11.7) fL Neut % (Auto) 88.8 H (50.0-75.0) % Lymph % (Auto) 5.4 L (20.0-40.0) % [place] % (Auto) 5.2 (0.0-10.0) % Eos % (Auto) 0.6 (0.0-4.0) % Baso % (Auto) 0.0 (0.0-2.0) % Neut # 1.4 L (1.8-7.0) K/uL Lymph # 0.1 L (1.0-4.3) K/uL [place] # 0.1 (0.0-0.8) K/uL Eos # 0.0 (0.0-0.7) K/uL Baso # 0.0 (0.0-0.2) K/uL Neutrophils % (Manual) 59 (50-75) % Band Neutrophils % 28 H* (0-2) % Lymphocytes % (Manual) 4 L (20-40) % Monocytes % (Manual) 1 (0-10) % Eosinophils % (Manual) 1 (0-4) % Metamyelocytes % 3 H (0-0) % Myelocytes % 4 H (0-0) % Nucleated RBC % 1 H (0-0) % Toxic Granulation Present Dohle Bodies Present Platelet Estimate Slightly decreased L (NORMAL) Large Platelets Present Anisocytosis (manual) Moderate Macrocytosis (manual) Moderate Puncture Site pCO2 (35-45) mm/Hg pO2 (80-100) mm/Hg HCO3 (21-28) mmol/L ABG pH (7.35-7.45) ABG Total CO2 (22-28) mmol/L ABG O2 Saturation (95-98) % ABG Base Excess (-2.0-3.0) mmol/L ABG Hemoglobin (11.7-17.4) g/dL ABG Carboxyhemoglobin (0.5-1.5) % POC ABG HHb (Measured) (0.0-5.0) % ABG Methemoglobin (0.0-3.0) % Heriberto Test ABG Potassium (3.6-5.2) mmol/L A-a O2 Difference mm/Hg Respiratory Index Hgb O2 Saturation (95.0-98.0) % Sodium 162 H* (132-148) mmol/l Chloride 134 H (98-107) mmol/L Glucose (75-110) mg/dl Lactate (0.7-2.1) mmol/L Vent Mode Mechanical Rate FiO2 % Tidal Volume PEEP Crit Value Called To Crit Value Called By Crit Value Read Back Blood Gas Notified Time Potassium 3.9 (3.6-5.2) mmol/L Carbon Dioxide 17 L (22-30) mmol/L Anion Gap 16 (10-20) BUN 76 H (9-20) mg/dL Creatinine 1.9 H (0.8-1.5) mg/dL Est GFR ( Amer) 41 Est GFR (Non-Af Amer) 34 POC Glucose (mg/dL) (65-110) mg/dL Random Glucose 295 H (75-110) mg/dL Lactic Acid (0.7-2.1) mmol/L Calcium 8.1 L (8.6-10.4) mg/dl Phosphorus (2.5-4.5) mg/dL Magnesium (1.6-2.3) mg/dL Total Bilirubin 0.8 (0.2-1.3) mg/dL AST 47 (17-59) U/L ALT 45 (21-72) U/L Alkaline Phosphatase 233 H (38-126) U/L Troponin I 0.0140 (0.00-0.120) ng/mL NT-Pro-B Natriuret Pep 2120 H (0-900) pg/mL Total Protein 6.1 L (6.3-8.3) g/dL Albumin 2.4 L (3.5-5.0) g/dL Globulin 3.7 (2.2-3.9) gm/dL Albumin/Globulin Ratio 0.7 L (1.0-2.1) Arterial Blood Potassium (3.6-5.2) mmol/L Urine Color Yellow (YELLOW) Urine Clarity Hazy (Clear) Urine pH 5.0 (5.0-8.0) Ur Specific [place] 1.017 (1.003-1.030) Urine Protein 2+ H (NEGATIVE) mg/dL Urine Glucose (UA) 1+ H (Normal) mg/dL Urine Ketones Negative (NEGATIVE) mg/dL Urine Blood Negative (NEGATIVE) Urine Nitrate Negative (NEGATIVE) Urine Bilirubin Negative (NEGATIVE) Urine Urobilinogen Normal (0.2-1.0) mg/dL Ur Leukocyte Esterase 3+ H (Negative) Adolfo/uL Urine WBC (Auto) 50 H (0-5) /hpf Urine Bacteria Occ H (<OCC) Urine Yeast (Budding) Many H (NEGATIVE) /hpf Influenza Typ A,B (EIA) (NEGATIVE) 04/08/17 04/08/17 Range/Units 17:10 15:44 WBC (4.8-10.8) K/uL RBC (4.40-5.90) Mil/uL Hgb (12.0-18.0) g/dL Hct (35.0-51.0) % MCV (80.0-94.0) fL MCH (27.0-31.0) pg MCHC (33.0-37.0) g/dL RDW (11.5-14.5) % Plt Count (130-400) K/uL MPV (7.2-11.7) fL Neut % (Auto) (50.0-75.0) % Lymph % (Auto) (20.0-40.0) % [place] % (Auto) (0.0-10.0) % Eos % (Auto) (0.0-4.0) % Baso % (Auto) (0.0-2.0) % Neut # (1.8-7.0) K/uL Lymph # (1.0-4.3) K/uL [place] # (0.0-0.8) K/uL Eos # (0.0-0.7) K/uL Baso # (0.0-0.2) K/uL Neutrophils % (Manual) (50-75) % Band Neutrophils % (0-2) % Lymphocytes % (Manual) (20-40) % Monocytes % (Manual) (0-10) % Eosinophils % (Manual) (0-4) % Metamyelocytes % (0-0) % Myelocytes % (0-0) % Nucleated RBC % (0-0) % Toxic Granulation Dohle Bodies Platelet Estimate (NORMAL) Large Platelets Anisocytosis (manual) Macrocytosis (manual) Puncture Site Lba pCO2 27 L (35-45) mm/Hg pO2 139 H (80-100) mm/Hg HCO3 18.3 L (21-28) mmol/L ABG pH 7.36 (7.35-7.45) ABG Total CO2 16.1 L (22-28) mmol/L ABG O2 Saturation 100.8 H (95-98) % ABG Base Excess -8.6 L (-2.0-3.0) mmol/L ABG Hemoglobin (11.7-17.4) g/dL ABG Carboxyhemoglobin (0.5-1.5) % POC ABG HHb (Measured) (0.0-5.0) % ABG Methemoglobin (0.0-3.0) % Heriberto Test Yes ABG Potassium 3.6 (3.6-5.2) mmol/L A-a O2 Difference 540.0 mm/Hg Respiratory Index 3.9 Hgb O2 Saturation (95.0-98.0) % Sodium 161.0 H* (132-148) mmol/l Chloride 135.0 H (98-107) mmol/L Glucose 289 H (75-110) mg/dl Lactate 7.7 H* (0.7-2.1) mmol/L Vent Mode Prvc Mechanical Rate 12 FiO2 100.0 % Tidal Volume 500 PEEP 5 Crit Value Called To stock turnermelchor leone Crit Value Called By Teresa diabetes territory manager Crit Value Read Back Y Blood Gas Notified Time 1721 Potassium (3.6-5.2) mmol/L Carbon Dioxide (22-30) mmol/L Anion Gap (10-20) BUN (9-20) mg/dL Creatinine (0.8-1.5) mg/dL Est GFR ( Amer) Est GFR (Non-Af Amer) POC Glucose (mg/dL) (65-110) mg/dL Random Glucose (75-110) mg/dL Lactic Acid (0.7-2.1) mmol/L Calcium (8.6-10.4) mg/dl Phosphorus (2.5-4.5) mg/dL Magnesium (1.6-2.3) mg/dL Total Bilirubin (0.2-1.3) mg/dL AST (17-59) U/L ALT (21-72) U/L Alkaline Phosphatase (38-126) U/L Troponin I (0.00-0.120) ng/mL NT-Pro-B Natriuret Pep (0-900) pg/mL Total Protein (6.3-8.3) g/dL Albumin (3.5-5.0) g/dL Globulin (2.2-3.9) gm/dL Albumin/Globulin Ratio (1.0-2.1) Arterial Blood Potassium 3.6 (3.6-5.2) mmol/L Urine Color (YELLOW) Urine Clarity (Clear) Urine pH (5.0-8.0) Ur Specific [place] (1.003-1.030) Urine Protein (NEGATIVE) mg/dL Urine Glucose (UA) (Normal) mg/dL Urine Ketones (NEGATIVE) mg/dL Urine Blood (NEGATIVE) Urine Nitrate (NEGATIVE) Urine Bilirubin (NEGATIVE) Urine Urobilinogen (0.2-1.0) mg/dL Ur Leukocyte Esterase (Negative) Adolfo/uL Urine WBC (Auto) (0-5) /hpf Urine Bacteria (<OCC) Urine Yeast (Budding) (NEGATIVE) /hpf Influenza Typ A,B (EIA) Pos for influenza a H (NEGATIVE) Laboratory Results - last 24 hr 04/08/17 04/08/17 04/08/17 15:44 17:10 17:17 WBC 1.6 L* D RBC 2.97 L Hgb 9.4 L Hct 30.6 L MCV 103.1 H D MCH 31.7 H MCHC 30.7 L RDW 21.2 H Plt Count 111 L D MPV 11.5 Neut % (Auto) 88.8 H Lymph % (Auto) 5.4 L [place] % (Auto) 5.2 Eos % (Auto) 0.6 Baso % (Auto) 0.0 Neut # 1.4 L Lymph # 0.1 L [place] # 0.1 Eos # 0.0 Baso # 0.0 Neutrophils % (Manual) 59 Band Neutrophils % 28 H* Lymphocytes % (Manual) 4 L Monocytes % (Manual) 1 Eosinophils % (Manual) 1 Metamyelocytes % 3 H Myelocytes % 4 H Nucleated RBC % 1 H Toxic Granulation Present Dohle Bodies Present Platelet Estimate Slightly decreased L Large Platelets Present Anisocytosis (manual) Moderate Macrocytosis (manual) Moderate Puncture Site Lba pCO2 27 L pO2 139 H HCO3 18.3 L ABG pH 7.36 ABG Total CO2 16.1 L ABG O2 Saturation 100.8 H ABG Base Excess -8.6 L ABG Hemoglobin ABG Carboxyhemoglobin POC ABG HHb (Measured) ABG Methemoglobin Heriberto Test Yes ABG Potassium 3.6 A-a O2 Difference 540.0 Respiratory Index 3.9 Hgb O2 Saturation Sodium 161.0 H* Chloride 135.0 H Glucose 289 H Lactate 7.7 H* Vent Mode Prvc Mechanical Rate 12 FiO2 100.0 Tidal Volume 500 PEEP 5 Crit Value Called To stock turner sulema Crit Value Called By Teresa diabetes territory manager Crit Value Read Back Y Blood Gas Notified Time 1721 Potassium Carbon Dioxide Anion Gap BUN Creatinine Est GFR ( Amer) Est GFR (Non-Af Amer) POC Glucose (mg/dL) Random Glucose Lactic Acid Calcium Phosphorus Magnesium Total Bilirubin AST ALT Alkaline Phosphatase Troponin I NT-Pro-B Natriuret Pep Total Protein Albumin Globulin Albumin/Globulin Ratio Arterial Blood Potassium 3.6 Urine Color Urine Clarity Urine pH Ur Specific [place] Urine Protein Urine Glucose (UA) Urine Ketones Urine Blood Urine Nitrate Urine Bilirubin Urine Urobilinogen Ur Leukocyte Esterase Urine WBC (Auto) Urine Bacteria Urine Yeast (Budding) Influenza Typ A,B (EIA) Pos for influenza a H 04/08/17 04/08/17 04/08/17 17:17 17:17 20:11 WBC RBC Hgb Hct MCV MCH MCHC RDW Plt Count MPV Neut % (Auto) Lymph % (Auto) [place] % (Auto) Eos % (Auto) Baso % (Auto) Neut # Lymph # [place] # Eos # Baso # Neutrophils % (Manual) Band Neutrophils % Lymphocytes % (Manual) Monocytes % (Manual) Eosinophils % (Manual) Metamyelocytes % Myelocytes % Nucleated RBC % Toxic Granulation Dohle Bodies Platelet Estimate Large Platelets Anisocytosis (manual) Macrocytosis (manual) Puncture Site pCO2 pO2 HCO3 ABG pH ABG Total CO2 ABG O2 Saturation ABG Base Excess ABG Hemoglobin ABG Carboxyhemoglobin POC ABG HHb (Measured) ABG Methemoglobin Heriberto Test ABG Potassium A-a O2 Difference Respiratory Index Hgb O2 Saturation Sodium 162 H* Chloride 134 H Glucose Lactate Vent Mode Mechanical Rate FiO2 Tidal Volume PEEP Crit Value Called To Crit Value Called By Crit Value Read Back Blood Gas Notified Time Potassium 3.9 Carbon Dioxide 17 L Anion Gap 16 BUN 76 H Creatinine 1.9 H Est GFR ( Amer) 41 Est GFR (Non-Af Amer) 34 POC Glucose (mg/dL) Random Glucose 295 H Lactic Acid 9.4 H* Calcium 8.1 L Phosphorus Magnesium Total Bilirubin 0.8 AST 47 ALT 45 Alkaline Phosphatase 233 H Troponin I 0.0140 NT-Pro-B Natriuret Pep 2120 H Total Protein 6.1 L Albumin 2.4 L Globulin 3.7 Albumin/Globulin Ratio 0.7 L Arterial Blood Potassium Urine Color Yellow Urine Clarity Hazy Urine pH 5.0 Ur Specific [place] 1.017 Urine Protein 2+ H Urine Glucose (UA) 1+ H Urine Ketones Negative Urine Blood Negative Urine Nitrate Negative Urine Bilirubin Negative Urine Urobilinogen Normal Ur Leukocyte Esterase 3+ H Urine WBC (Auto) 50 H Urine Bacteria Occ H Urine Yeast (Budding) Many H Influenza Typ A,B (EIA) 04/08/17 04/08/17 04/09/17 21:32 23:48 04:27 WBC RBC Hgb Hct MCV MCH MCHC RDW Plt Count MPV Neut % (Auto) Lymph % (Auto) [place] % (Auto) Eos % (Auto) Baso % (Auto) Neut # Lymph # [place] # Eos # Baso # Neutrophils % (Manual) Band Neutrophils % Lymphocytes % (Manual) Monocytes % (Manual) Eosinophils % (Manual) Metamyelocytes % Myelocytes % Nucleated RBC % Toxic Granulation Dohle Bodies Platelet Estimate Large Platelets Anisocytosis (manual) Macrocytosis (manual) Puncture Site pCO2 pO2 HCO3 ABG pH ABG Total CO2 ABG O2 Saturation ABG Base Excess ABG Hemoglobin ABG Carboxyhemoglobin POC ABG HHb (Measured) ABG Methemoglobin Heriberto Test ABG Potassium A-a O2 Difference Respiratory Index Hgb O2 Saturation Sodium Chloride Glucose Lactate Vent Mode Mechanical Rate FiO2 Tidal Volume PEEP Crit Value Called To Crit Value Called By Crit Value Read Back Blood Gas Notified Time Potassium Carbon Dioxide Anion Gap BUN Creatinine Est GFR ( Amer) Est GFR (Non-Af Amer) POC Glucose (mg/dL) 130 H 105 86 Random Glucose Lactic Acid Calcium Phosphorus Magnesium Total Bilirubin AST ALT Alkaline Phosphatase Troponin I NT-Pro-B Natriuret Pep Total Protein Albumin Globulin Albumin/Globulin Ratio Arterial Blood Potassium Urine Color Urine Clarity Urine pH Ur Specific [place] Urine Protein Urine Glucose (UA) Urine Ketones Urine Blood Urine Nitrate Urine Bilirubin Urine Urobilinogen Ur Leukocyte Esterase Urine WBC (Auto) Urine Bacteria Urine Yeast (Budding) Influenza Typ A,B (EIA) 04/09/17 04/09/17 04/09/17 05:40 06:22 06:22 WBC 1.6 L* RBC 2.95 L Hgb 9.4 L Hct 32.1 L MCV 108.7 H D MCH 31.7 H MCHC 29.1 L RDW 22.2 H Plt Count 51 L D MPV 12.8 H Neut % (Auto) 77.2 H Lymph % (Auto) 20.4 [place] % (Auto) 1.8 Eos % (Auto) 0.4 Baso % (Auto) 0.2 Neut # 1.3 L Lymph # 0.3 L [place] # 0.0 Eos # 0.0 Baso # 0.0 Neutrophils % (Manual) Band Neutrophils % Lymphocytes % (Manual) Monocytes % (Manual) Eosinophils % (Manual) Metamyelocytes % Myelocytes % Nucleated RBC % Toxic Granulation Dohle Bodies Platelet Estimate Large Platelets Anisocytosis (manual) Macrocytosis (manual) Puncture Site L bra pCO2 21 L pO2 88 HCO3 9.2 L* ABG pH 7.14 L* ABG Total CO2 7.7 L ABG O2 Saturation 98.2 H ABG Base Excess -20.1 L ABG Hemoglobin 9.0 L ABG Carboxyhemoglobin 1.8 H POC ABG HHb (Measured) 1.7 ABG Methemoglobin 1.5 Heriberto Test Na ABG Potassium A-a O2 Difference 599.0 Respiratory Index 6.8 Hgb O2 Saturation 95.1 Sodium 160 H* Chloride 134 H Glucose Lactate Vent Mode Prvc Mechanical Rate 22 FiO2 100.0 Tidal Volume 500 PEEP 5 Crit Value Called To Ellis paynepaulino agricultural 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 Crit Value Called By Alix buck rt Crit Value Read Back Y Blood Gas Notified Time 609 Potassium 3.8 Carbon Dioxide 10 L* D Anion Gap 20 BUN 70 H Creatinine 2.1 H Est GFR ( Amer) 36 Est GFR (Non-Af Amer) 30 POC Glucose (mg/dL) Random Glucose 90 Lactic Acid Calcium 6.7 L Phosphorus 4.5 Magnesium 2.1 Total Bilirubin 1.0 AST 155 H D ALT 93 H D Alkaline Phosphatase 155 H D Troponin I NT-Pro-B Natriuret Pep Total Protein 4.6 L Albumin 1.8 L D Globulin 2.9 Albumin/Globulin Ratio 0.6 L Arterial Blood Potassium Urine Color Urine Clarity Urine pH Ur Specific [place] Urine Protein Urine Glucose (UA) Urine Ketones Urine Blood Urine Nitrate Urine Bilirubin Urine Urobilinogen Ur Leukocyte Esterase Urine WBC (Auto) Urine Bacteria Urine Yeast (Budding) Influenza Typ A,B (EIA) 04/09/17 04/09/17 08:51 11:39 WBC RBC Hgb Hct MCV MCH MCHC RDW Plt Count MPV Neut % (Auto) Lymph % (Auto) [place] % (Auto) Eos % (Auto) Baso % (Auto) Neut # Lymph # [place] # Eos # Baso # Neutrophils % (Manual) Band Neutrophils % Lymphocytes % (Manual) Monocytes % (Manual) Eosinophils % (Manual) Metamyelocytes % Myelocytes % Nucleated RBC % Toxic Granulation Dohle Bodies Platelet Estimate Large Platelets Anisocytosis (manual) Macrocytosis (manual) Puncture Site pCO2 pO2 HCO3 ABG pH ABG Total CO2 ABG O2 Saturation ABG Base Excess ABG Hemoglobin ABG Carboxyhemoglobin POC ABG HHb (Measured) ABG Methemoglobin Heriberto Test ABG Potassium A-a O2 Difference Respiratory Index Hgb O2 Saturation Sodium Chloride Glucose Lactate Vent Mode Mechanical Rate FiO2 Tidal Volume PEEP Crit Value Called To Crit Value Called By Crit Value Read Back Blood Gas Notified Time Potassium Carbon Dioxide Anion Gap BUN Creatinine Est GFR ( Amer) Est GFR (Non-Af Amer) POC Glucose (mg/dL) 76 74 Random Glucose Lactic Acid Calcium Phosphorus Magnesium Total Bilirubin AST ALT Alkaline Phosphatase Troponin I NT-Pro-B Natriuret Pep Total Protein Albumin Globulin Albumin/Globulin Ratio Arterial Blood Potassium Urine Color Urine Clarity Urine pH Ur Specific [place] Urine Protein Urine Glucose (UA) Urine Ketones Urine Blood Urine Nitrate Urine Bilirubin Urine Urobilinogen Ur Leukocyte Esterase Urine WBC (Auto) Urine Bacteria Urine Yeast (Budding) Influenza Typ A,B (EIA) EKG/Cardiology Studies: Cardiology / EKG Studies 04/08/17 15:44 ELECTROCARDIOGRAM Stat Comment: Mode Of Transportation: BED Reason For Exam: SOB Isolation: Contact Fingerstick Blood Sugar Results: 76 Assessment/Plan - Assessment and Plan (Free Text) Assessment: 86 Septic shock likely pneumonia, Respiratory distress, intubated Plan: Neuro: versed given in ED for sedation alzheimers parkinsons Cardio: Hypotensive, septic shock levephed vasopressin lily Still hypotensive Pulm: Respiratory failure intubated very acidotic GI: Pepcid : siu ID: Lekopenic, maxipime and vanco given septic shock likely secondary to pneumonia Lactate 9.4 PPX: pepcid <Percy Cleary S - Last Filed: 04/09/17 15:55> CCU Objective - Vital Signs / Intake & Output Vital Signs (Last 4 hours): Vital Signs BP 04/09/17 13:18 116/66 04/09/17 13:17 116/66 04/09/17 13:16 116/66 Intake and Output (Last 8hrs): Intake & Output 04/09/17 04/09/17 04/09/17 06:59 14:59 22:59 Intake Total 2146.8 1045.1 Output Total 565 10 Balance 1581.8 1035.1 Weight 120 lb 5.958 oz Intake: IV 258 804 Intake, IV Amount 1888.8 241.1 Right Hand 1200 150 Right Medial Port PICC 360 50 Right PICC 309.6 38.7 Right Proximal Port PICC 19.2 2.4 Output: Urine 115 10 Urethral (Siu) 115 10 Stool 450 0 Other: # Bowel Movements 1 - Medications Active Medications: Active Medications Generic Name Dose Route Start Last Admin Trade Name Freq PRN Reason Stop Dose Admin Albuterol/Ipratropium 3 ml 04/09/17 02:00 04/09/17 14:25 Duoneb 3 Mg/0.5 Mg (3 Ml) Ud INH 3 ml RQ6 AUGUST Administration Carbidopa/Levodopa 1 tab 04/08/17 22:00 01/24/18 13:27 Sinemet 10/100 GT 1 tab QID AUGUST Administration Docusate Sodium 100 mg 04/09/17 10:00 04/09/17 13:28 Colace GT Not Given TID AUGUST Famotidine 20 mg 04/09/17 10:00 04/09/17 09:01 Pepcid IVP 20 mg DAILY AUGUST Administration Midazolam HCl 100 mg/ Dextrose 100 mls @ 1.27 mls/hr 04/08/17 17:00 04/08/17 18:00 IV Not Given .Q24H AUGUST Protocol 0.02 MG/KG/HR Norepinephrine Bitartrate 8 mg 258 mls @ 38.7 mls/hr 04/08/17 17:36 04/09/17 13:18 / Dextrose IV 20 mcg/min .Q6H40M PRN 38.7 mls/hr TITRATE PER MD ORDER Administration Protocol 20 MCG/MIN Vasopressin 40 units/ Sodium 40 mls @ 0.6 mls/hr 04/08/17 20:15 04/09/17 13: 16 Chloride IV 0.04 units/min .Q24H PRN 2.4 mls/hr PER PROTOCOL Administration Protocol 0.01 UNITS/MIN Sodium Chloride 1,000 mls @ 150 mls/hr 04/08/17 23:30 04/09/17 13:14 Sodium Chloride 0.45% IV 150 mls/hr .Q6H40M AGUUST Administration Linezolid 600 mg in 300 mls @ 200 mls/hr 04/09/17 10:00 04/09/17 09:56 Zyvox 600mg/300ml D5w IVPB 200 mls/hr Q12 AUGUST Administration Meropenem 500 mg/ Sodium 100 mls @ 100 mls/hr 04/09/17 18:00 Chloride IVPB Q12H AUGUST Phenylephrine HCl 60 mg/ 250 mls @ 2.5 mls/hr 04/09/17 15:00 Sodium Chloride IV .Q24H PRN TITRATE PER MD ORDER Protocol 10 MCG/MIN Insulin Aspart 0 unit 04/09/17 18:00 Novolog SC Q6 AUGUST Protocol Oseltamivir Phosphate 75 mg 04/08/17 20:45 04/09/17 09:01 Tamiflu Cap PO 04/13/17 20:33 75 mg BID AUGUST Administration Senna/Docusate Sodium 1 tab 04/08/17 20:21 Senokot S 50 Mg-8.6 Mg PO DAILY PRN Constipation - Patient Studies Lab Studies: Microbiology Studies 04/08/17 17:10 Blood Culture - Preliminary Blood Gram Negative Gil Gram Stain - Final 04/08/17 16:50 Blood Culture - Preliminary Blood Gram Negative Gil Gram Stain - Final Lab Studies 04/09/17 04/09/17 04/09/17 Range/Units 11:39 08:51 06:22 WBC (4.8-10.8) K/uL RBC (4.40-5.90) Mil/uL Hgb (12.0-18.0) g/dL Hct (35.0-51.0) % MCV (80.0-94.0) fL MCH (27.0-31.0) pg MCHC (33.0-37.0) g/dL RDW (11.5-14.5) % Plt Count (130-400) K/uL MPV (7.2-11.7) fL Neut % (Auto) (50.0-75.0) % Lymph % (Auto) (20.0-40.0) % [place] % (Auto) (0.0-10.0) % Eos % (Auto) (0.0-4.0) % Baso % (Auto) (0.0-2.0) % Neut # (1.8-7.0) K/uL Lymph # (1.0-4.3) K/uL [place] # (0.0-0.8) K/uL Eos # (0.0-0.7) K/uL Baso # (0.0-0.2) K/uL Neutrophils % (Manual) (50-75) % Band Neutrophils % (0-2) % Lymphocytes % (Manual) (20-40) % Monocytes % (Manual) (0-10) % Eosinophils % (Manual) (0-4) % Metamyelocytes % (0-0) % Myelocytes % (0-0) % Nucleated RBC % (0-0) % Toxic Granulation Dohle Bodies Platelet Estimate (NORMAL) Large Platelets Anisocytosis (manual) Macrocytosis (manual) Puncture Site pCO2 (35-45) mm/Hg pO2 (80-100) mm/Hg HCO3 (21-28) mmol/L ABG pH (7.35-7.45) ABG Total CO2 (22-28) mmol/L ABG O2 Saturation (95-98) % ABG Base Excess (-2.0-3.0) mmol/L ABG Hemoglobin (11.7-17.4) g/dL ABG Carboxyhemoglobin (0.5-1.5) % POC ABG HHb (Measured) (0.0-5.0) % ABG Methemoglobin (0.0-3.0) % Heriberto Test ABG Potassium (3.6-5.2) mmol/L A-a O2 Difference mm/Hg Respiratory Index Hgb O2 Saturation (95.0-98.0) % Sodium 160 H* (132-148) mmol/l Chloride 134 H (98-107) mmol/L Glucose (75-110) mg/dl Lactate (0.7-2.1) mmol/L Vent Mode Mechanical Rate FiO2 % Tidal Volume PEEP Crit Value Called To Crit Value Called By Crit Value Read Back Blood Gas Notified Time Potassium 3.8 (3.6-5.2) mmol/L Carbon Dioxide 10 L* D (22-30) mmol/L Anion Gap 20 (10-20) BUN 70 H (9-20) mg/dL Creatinine 2.1 H (0.8-1.5) mg/dL Est GFR ( Amer) 36 Est GFR (Non-Af Amer) 30 POC Glucose (mg/dL) 74 76 (65-110) mg/dL Random Glucose 90 (75-110) mg/dL Lactic Acid (0.7-2.1) mmol/L Calcium 6.7 L (8.6-10.4) mg/dl Phosphorus 4.5 (2.5-4.5) mg/dL Magnesium 2.1 (1.6-2.3) mg/dL Total Bilirubin 1.0 (0.2-1.3) mg/dL AST 155 H D (17-59) U/L ALT 93 H D (21-72) U/L Alkaline Phosphatase 155 H D (38-126) U/L Troponin I (0.00-0.120) ng/mL NT-Pro-B Natriuret Pep (0-900) pg/mL Total Protein 4.6 L (6.3-8.3) g/dL Albumin 1.8 L D (3.5-5.0) g/dL Globulin 2.9 (2.2-3.9) gm/dL Albumin/Globulin Ratio 0.6 L (1.0-2.1) Arterial Blood Potassium (3.6-5.2) mmol/L Urine Color (YELLOW) Urine Clarity (Clear) Urine pH (5.0-8.0) Ur Specific [place] (1.003-1.030) Urine Protein (NEGATIVE) mg/dL Urine Glucose (UA) (Normal) mg/dL Urine Ketones (NEGATIVE) mg/dL Urine Blood (NEGATIVE) Urine Nitrate (NEGATIVE) Urine Bilirubin (NEGATIVE) Urine Urobilinogen (0.2-1.0) mg/dL Ur Leukocyte Esterase (Negative) Adolfo/uL Urine WBC (Auto) (0-5) /hpf Urine Bacteria (<OCC) Urine Yeast (Budding) (NEGATIVE) /hpf Influenza Typ A,B (EIA) (NEGATIVE) 04/09/17 04/09/17 04/09/17 Range/Units 06:22 05:40 04:27 WBC 1.6 L* (4.8-10.8) K/uL RBC 2.95 L (4.40-5.90) Mil/uL Hgb 9.4 L (12.0-18.0) g/dL Hct 32.1 L (35.0-51.0) % MCV 108.7 H D (80.0-94.0) fL MCH 31.7 H (27.0-31.0) pg MCHC 29.1 L (33.0-37.0) g/dL RDW 22.2 H (11.5-14.5) % Plt Count 51 L D (130-400) K/uL MPV 12.8 H (7.2-11.7) fL Neut % (Auto) 77.2 H (50.0-75.0) % Lymph % (Auto) 20.4 (20.0-40.0) % [place] % (Auto) 1.8 (0.0-10.0) % Eos % (Auto) 0.4 (0.0-4.0) % Baso % (Auto) 0.2 (0.0-2.0) % Neut # 1.3 L (1.8-7.0) K/uL Lymph # 0.3 L (1.0-4.3) K/uL [place] # 0.0 (0.0-0.8) K/uL Eos # 0.0 (0.0-0.7) K/uL Baso # 0.0 (0.0-0.2) K/uL Neutrophils % (Manual) (50-75) % Band Neutrophils % (0-2) % Lymphocytes % (Manual) (20-40) % Monocytes % (Manual) (0-10) % Eosinophils % (Manual) (0-4) % Metamyelocytes % (0-0) % Myelocytes % (0-0) % Nucleated RBC % (0-0) % Toxic Granulation Dohle Bodies Platelet Estimate (NORMAL) Large Platelets Anisocytosis (manual) Macrocytosis (manual) Puncture Site L bra pCO2 21 L (35-45) mm/Hg pO2 88 (80-100) mm/Hg HCO3 9.2 L* (21-28) mmol/L ABG pH 7.14 L* (7.35-7.45) ABG Total CO2 7.7 L (22-28) mmol/L ABG O2 Saturation 98.2 H (95-98) % ABG Base Excess -20.1 L (-2.0-3.0) mmol/L ABG Hemoglobin 9.0 L (11.7-17.4) g/dL ABG Carboxyhemoglobin 1.8 H (0.5-1.5) % POC ABG HHb (Measured) 1.7 (0.0-5.0) % ABG Methemoglobin 1.5 (0.0-3.0) % Heriberto Test Na ABG Potassium (3.6-5.2) mmol/L A-a O2 Difference 599.0 mm/Hg Respiratory Index 6.8 Hgb O2 Saturation 95.1 (95.0-98.0) % Sodium (132-148) mmol/l Chloride (98-107) mmol/L Glucose (75-110) mg/dl Lactate (0.7-2.1) mmol/L Vent Mode Prvc Mechanical Rate 22 FiO2 100.0 % Tidal Volume 500 PEEP 5 Crit Value Called To Ellis jorge agricultural 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 Crit Value Called By Alix buck rt Crit Value Read Back Y Blood Gas Notified Time 609 Potassium (3.6-5.2) mmol/L Carbon Dioxide (22-30) mmol/L Anion Gap (10-20) BUN (9-20) mg/dL Creatinine (0.8-1.5) mg/dL Est GFR ( Amer) Est GFR (Non-Af Amer) POC Glucose (mg/dL) 86 (65-110) mg/dL Random Glucose (75-110) mg/dL Lactic Acid (0.7-2.1) mmol/L Calcium (8.6-10.4) mg/dl Phosphorus (2.5-4.5) mg/dL Magnesium (1.6-2.3) mg/dL Total Bilirubin (0.2-1.3) mg/dL AST (17-59) U/L ALT (21-72) U/L Alkaline Phosphatase (38-126) U/L Troponin I (0.00-0.120) ng/mL NT-Pro-B Natriuret Pep (0-900) pg/mL Total Protein (6.3-8.3) g/dL Albumin (3.5-5.0) g/dL Globulin (2.2-3.9) gm/dL Albumin/Globulin Ratio (1.0-2.1) Arterial Blood Potassium (3.6-5.2) mmol/L Urine Color (YELLOW) Urine Clarity (Clear) Urine pH (5.0-8.0) Ur Specific [place] (1.003-1.030) Urine Protein (NEGATIVE) mg/dL Urine Glucose (UA) (Normal) mg/dL Urine Ketones (NEGATIVE) mg/dL Urine Blood (NEGATIVE) Urine Nitrate (NEGATIVE) Urine Bilirubin (NEGATIVE) Urine Urobilinogen (0.2-1.0) mg/dL Ur Leukocyte Esterase (Negative) Adolfo/uL Urine WBC (Auto) (0-5) /hpf Urine Bacteria (<OCC) Urine Yeast (Budding) (NEGATIVE) /hpf Influenza Typ A,B (EIA) (NEGATIVE) 04/08/17 04/08/17 04/08/17 Range/Units 23:48 21:32 20:11 WBC (4.8-10.8) K/uL RBC (4.40-5.90) Mil/uL Hgb (12.0-18.0) g/dL Hct (35.0-51.0) % MCV (80.0-94.0) fL MCH (27.0-31.0) pg MCHC (33.0-37.0) g/dL RDW (11.5-14.5) % Plt Count (130-400) K/uL MPV (7.2-11.7) fL Neut % (Auto) (50.0-75.0) % Lymph % (Auto) (20.0-40.0) % [place] % (Auto) (0.0-10.0) % Eos % (Auto) (0.0-4.0) % Baso % (Auto) (0.0-2.0) % Neut # (1.8-7.0) K/uL Lymph # (1.0-4.3) K/uL [place] # (0.0-0.8) K/uL Eos # (0.0-0.7) K/uL Baso # (0.0-0.2) K/uL Neutrophils % (Manual) (50-75) % Band Neutrophils % (0-2) % Lymphocytes % (Manual) (20-40) % Monocytes % (Manual) (0-10) % Eosinophils % (Manual) (0-4) % Metamyelocytes % (0-0) % Myelocytes % (0-0) % Nucleated RBC % (0-0) % Toxic Granulation Dohle Bodies Platelet Estimate (NORMAL) Large Platelets Anisocytosis (manual) Macrocytosis (manual) Puncture Site pCO2 (35-45) mm/Hg pO2 (80-100) mm/Hg HCO3 (21-28) mmol/L ABG pH (7.35-7.45) ABG Total CO2 (22-28) mmol/L ABG O2 Saturation (95-98) % ABG Base Excess (-2.0-3.0) mmol/L ABG Hemoglobin (11.7-17.4) g/dL ABG Carboxyhemoglobin (0.5-1.5) % POC ABG HHb (Measured) (0.0-5.0) % ABG Methemoglobin (0.0-3.0) % Heriberto Test ABG Potassium (3.6-5.2) mmol/L A-a O2 Difference mm/Hg Respiratory Index Hgb O2 Saturation (95.0-98.0) % Sodium (132-148) mmol/l Chloride (98-107) mmol/L Glucose (75-110) mg/dl Lactate (0.7-2.1) mmol/L Vent Mode Mechanical Rate FiO2 % Tidal Volume PEEP Crit Value Called To Crit Value Called By Crit Value Read Back Blood Gas Notified Time Potassium (3.6-5.2) mmol/L Carbon Dioxide (22-30) mmol/L Anion Gap (10-20) BUN (9-20) mg/dL Creatinine (0.8-1.5) mg/dL Est GFR ( Amer) Est GFR (Non-Af Amer) POC Glucose (mg/dL) 105 130 H (65-110) mg/dL Random Glucose (75-110) mg/dL Lactic Acid 9.4 H* (0.7-2.1) mmol/L Calcium (8.6-10.4) mg/dl Phosphorus (2.5-4.5) mg/dL Magnesium (1.6-2.3) mg/dL Total Bilirubin (0.2-1.3) mg/dL AST (17-59) U/L ALT (21-72) U/L Alkaline Phosphatase (38-126) U/L Troponin I (0.00-0.120) ng/mL NT-Pro-B Natriuret Pep (0-900) pg/mL Total Protein (6.3-8.3) g/dL Albumin (3.5-5.0) g/dL Globulin (2.2-3.9) gm/dL Albumin/Globulin Ratio (1.0-2.1) Arterial Blood Potassium (3.6-5.2) mmol/L Urine Color (YELLOW) Urine Clarity (Clear) Urine pH (5.0-8.0) Ur Specific [place] (1.003-1.030) Urine Protein (NEGATIVE) mg/dL Urine Glucose (UA) (Normal) mg/dL Urine Ketones (NEGATIVE) mg/dL Urine Blood (NEGATIVE) Urine Nitrate (NEGATIVE) Urine Bilirubin (NEGATIVE) Urine Urobilinogen (0.2-1.0) mg/dL Ur Leukocyte Esterase (Negative) Adolfo/uL Urine WBC (Auto) (0-5) /hpf Urine Bacteria (<OCC) Urine Yeast (Budding) (NEGATIVE) /hpf Influenza Typ A,B (EIA) (NEGATIVE) 04/08/17 04/08/17 04/08/17 Range/Units 17:17 17:17 17:17 WBC 1.6 L* D (4.8-10.8) K/uL RBC 2.97 L (4.40-5.90) Mil/uL Hgb 9.4 L (12.0-18.0) g/dL Hct 30.6 L (35.0-51.0) % MCV 103.1 H D (80.0-94.0) fL MCH 31.7 H (27.0-31.0) pg MCHC 30.7 L (33.0-37.0) g/dL RDW 21.2 H (11.5-14.5) % Plt Count 111 L D (130-400) K/uL MPV 11.5 (7.2-11.7) fL Neut % (Auto) 88.8 H (50.0-75.0) % Lymph % (Auto) 5.4 L (20.0-40.0) % [place] % (Auto) 5.2 (0.0-10.0) % Eos % (Auto) 0.6 (0.0-4.0) % Baso % (Auto) 0.0 (0.0-2.0) % Neut # 1.4 L (1.8-7.0) K/uL Lymph # 0.1 L (1.0-4.3) K/uL [place] # 0.1 (0.0-0.8) K/uL Eos # 0.0 (0.0-0.7) K/uL Baso # 0.0 (0.0-0.2) K/uL Neutrophils % (Manual) 59 (50-75) % Band Neutrophils % 28 H* (0-2) % Lymphocytes % (Manual) 4 L (20-40) % Monocytes % (Manual) 1 (0-10) % Eosinophils % (Manual) 1 (0-4) % Metamyelocytes % 3 H (0-0) % Myelocytes % 4 H (0-0) % Nucleated RBC % 1 H (0-0) % Toxic Granulation Present Dohle Bodies Present Platelet Estimate Slightly decreased L (NORMAL) Large Platelets Present Anisocytosis (manual) Moderate Macrocytosis (manual) Moderate Puncture Site pCO2 (35-45) mm/Hg pO2 (80-100) mm/Hg HCO3 (21-28) mmol/L ABG pH (7.35-7.45) ABG Total CO2 (22-28) mmol/L ABG O2 Saturation (95-98) % ABG Base Excess (-2.0-3.0) mmol/L ABG Hemoglobin (11.7-17.4) g/dL ABG Carboxyhemoglobin (0.5-1.5) % POC ABG HHb (Measured) (0.0-5.0) % ABG Methemoglobin (0.0-3.0) % Heriberto Test ABG Potassium (3.6-5.2) mmol/L A-a O2 Difference mm/Hg Respiratory Index Hgb O2 Saturation (95.0-98.0) % Sodium 162 H* (132-148) mmol/l Chloride 134 H (98-107) mmol/L Glucose (75-110) mg/dl Lactate (0.7-2.1) mmol/L Vent Mode Mechanical Rate FiO2 % Tidal Volume PEEP Crit Value Called To Crit Value Called By Crit Value Read Back Blood Gas Notified Time Potassium 3.9 (3.6-5.2) mmol/L Carbon Dioxide 17 L (22-30) mmol/L Anion Gap 16 (10-20) BUN 76 H (9-20) mg/dL Creatinine 1.9 H (0.8-1.5) mg/dL Est GFR ( Amer) 41 Est GFR (Non-Af Amer) 34 POC Glucose (mg/dL) (65-110) mg/dL Random Glucose 295 H (75-110) mg/dL Lactic Acid (0.7-2.1) mmol/L Calcium 8.1 L (8.6-10.4) mg/dl Phosphorus (2.5-4.5) mg/dL Magnesium (1.6-2.3) mg/dL Total Bilirubin 0.8 (0.2-1.3) mg/dL AST 47 (17-59) U/L ALT 45 (21-72) U/L Alkaline Phosphatase 233 H (38-126) U/L Troponin I 0.0140 (0.00-0.120) ng/mL NT-Pro-B Natriuret Pep 2120 H (0-900) pg/mL Total Protein 6.1 L (6.3-8.3) g/dL Albumin 2.4 L (3.5-5.0) g/dL Globulin 3.7 (2.2-3.9) gm/dL Albumin/Globulin Ratio 0.7 L (1.0-2.1) Arterial Blood Potassium (3.6-5.2) mmol/L Urine Color Yellow (YELLOW) Urine Clarity Hazy (Clear) Urine pH 5.0 (5.0-8.0) Ur Specific [place] 1.017 (1.003-1.030) Urine Protein 2+ H (NEGATIVE) mg/dL Urine Glucose (UA) 1+ H (Normal) mg/dL Urine Ketones Negative (NEGATIVE) mg/dL Urine Blood Negative (NEGATIVE) Urine Nitrate Negative (NEGATIVE) Urine Bilirubin Negative (NEGATIVE) Urine Urobilinogen Normal (0.2-1.0) mg/dL Ur Leukocyte Esterase 3+ H (Negative) Adolfo/uL Urine WBC (Auto) 50 H (0-5) /hpf Urine Bacteria Occ H (<OCC) Urine Yeast (Budding) Many H (NEGATIVE) /hpf Influenza Typ A,B (EIA) (NEGATIVE) 04/08/17 04/08/17 Range/Units 17:10 15:44 WBC (4.8-10.8) K/uL RBC (4.40-5.90) Mil/uL Hgb (12.0-18.0) g/dL Hct (35.0-51.0) % MCV (80.0-94.0) fL MCH (27.0-31.0) pg MCHC (33.0-37.0) g/dL RDW (11.5-14.5) % Plt Count (130-400) K/uL MPV (7.2-11.7) fL Neut % (Auto) (50.0-75.0) % Lymph % (Auto) (20.0-40.0) % [place] % (Auto) (0.0-10.0) % Eos % (Auto) (0.0-4.0) % Baso % (Auto) (0.0-2.0) % Neut # (1.8-7.0) K/uL Lymph # (1.0-4.3) K/uL [place] # (0.0-0.8) K/uL Eos # (0.0-0.7) K/uL Baso # (0.0-0.2) K/uL Neutrophils % (Manual) (50-75) % Band Neutrophils % (0-2) % Lymphocytes % (Manual) (20-40) % Monocytes % (Manual) (0-10) % Eosinophils % (Manual) (0-4) % Metamyelocytes % (0-0) % Myelocytes % (0-0) % Nucleated RBC % (0-0) % Toxic Granulation Dohle Bodies Platelet Estimate (NORMAL) Large Platelets Anisocytosis (manual) Macrocytosis (manual) Puncture Site Lba pCO2 27 L (35-45) mm/Hg pO2 139 H (80-100) mm/Hg HCO3 18.3 L (21-28) mmol/L ABG pH 7.36 (7.35-7.45) ABG Total CO2 16.1 L (22-28) mmol/L ABG O2 Saturation 100.8 H (95-98) % ABG Base Excess -8.6 L (-2.0-3.0) mmol/L ABG Hemoglobin (11.7-17.4) g/dL ABG Carboxyhemoglobin (0.5-1.5) % POC ABG HHb (Measured) (0.0-5.0) % ABG Methemoglobin (0.0-3.0) % Heriberto Test Yes ABG Potassium 3.6 (3.6-5.2) mmol/L A-a O2 Difference 540.0 mm/Hg Respiratory Index 3.9 Hgb O2 Saturation (95.0-98.0) % Sodium 161.0 H* (132-148) mmol/l Chloride 135.0 H (98-107) mmol/L Glucose 289 H (75-110) mg/dl Lactate 7.7 H* (0.7-2.1) mmol/L Vent Mode Prvc Mechanical Rate 12 FiO2 100.0 % Tidal Volume 500 PEEP 5 Crit Value Called To stock turnermelchor leone Crit Value Called By Teresa diabetes territory manager Crit Value Read Back Y Blood Gas Notified Time 1721 Potassium (3.6-5.2) mmol/L Carbon Dioxide (22-30) mmol/L Anion Gap (10-20) BUN (9-20) mg/dL Creatinine (0.8-1.5) mg/dL Est GFR ( Amer) Est GFR (Non-Af Amer) POC Glucose (mg/dL) (65-110) mg/dL Random Glucose (75-110) mg/dL Lactic Acid (0.7-2.1) mmol/L Calcium (8.6-10.4) mg/dl Phosphorus (2.5-4.5) mg/dL Magnesium (1.6-2.3) mg/dL Total Bilirubin (0.2-1.3) mg/dL AST (17-59) U/L ALT (21-72) U/L Alkaline Phosphatase (38-126) U/L Troponin I (0.00-0.120) ng/mL NT-Pro-B Natriuret Pep (0-900) pg/mL Total Protein (6.3-8.3) g/dL Albumin (3.5-5.0) g/dL Globulin (2.2-3.9) gm/dL Albumin/Globulin Ratio (1.0-2.1) Arterial Blood Potassium 3.6 (3.6-5.2) mmol/L Urine Color (YELLOW) Urine Clarity (Clear) Urine pH (5.0-8.0) Ur Specific [place] (1.003-1.030) Urine Protein (NEGATIVE) mg/dL Urine Glucose (UA) (Normal) mg/dL Urine Ketones (NEGATIVE) mg/dL Urine Blood (NEGATIVE) Urine Nitrate (NEGATIVE) Urine Bilirubin (NEGATIVE) Urine Urobilinogen (0.2-1.0) mg/dL Ur Leukocyte Esterase (Negative) Adolfo/uL Urine WBC (Auto) (0-5) /hpf Urine Bacteria (<OCC) Urine Yeast (Budding) (NEGATIVE) /hpf Influenza Typ A,B (EIA) Pos for influenza a H (NEGATIVE) Laboratory Results - last 24 hr 04/08/17 04/08/17 04/08/17 15:44 17:10 17:17 WBC 1.6 L* D RBC 2.97 L Hgb 9.4 L Hct 30.6 L MCV 103.1 H D MCH 31.7 H MCHC 30.7 L RDW 21.2 H Plt Count 111 L D MPV 11.5 Neut % (Auto) 88.8 H Lymph % (Auto) 5.4 L [place] % (Auto) 5.2 Eos % (Auto) 0.6 Baso % (Auto) 0.0 Neut # 1.4 L Lymph # 0.1 L [place] # 0.1 Eos # 0.0 Baso # 0.0 Neutrophils % (Manual) 59 Band Neutrophils % 28 H* Lymphocytes % (Manual) 4 L Monocytes % (Manual) 1 Eosinophils % (Manual) 1 Metamyelocytes % 3 H Myelocytes % 4 H Nucleated RBC % 1 H Toxic Granulation Present Dohle Bodies Present Platelet Estimate Slightly decreased L Large Platelets Present Anisocytosis (manual) Moderate Macrocytosis (manual) Moderate Puncture Site Lba pCO2 27 L pO2 139 H HCO3 18.3 L ABG pH 7.36 ABG Total CO2 16.1 L ABG O2 Saturation 100.8 H ABG Base Excess -8.6 L ABG Hemoglobin ABG Carboxyhemoglobin POC ABG HHb (Measured) ABG Methemoglobin Heriberto Test Yes ABG Potassium 3.6 A-a O2 Difference 540.0 Respiratory Index 3.9 Hgb O2 Saturation Sodium 161.0 H* Chloride 135.0 H Glucose 289 H Lactate 7.7 H* Vent Mode Prvc Mechanical Rate 12 FiO2 100.0 Tidal Volume 500 PEEP 5 Crit Value Called To stock turnermelchor leone Crit Value Called By Teresa diabetes territory manager Crit Value Read Back Y Blood Gas Notified Time 6812 Potassium Carbon Dioxide Anion Gap BUN Creatinine Est GFR ( Amer) Est GFR (Non-Af Amer) POC Glucose (mg/dL) Random Glucose Lactic Acid Calcium Phosphorus Magnesium Total Bilirubin AST ALT Alkaline Phosphatase Troponin I NT-Pro-B Natriuret Pep Total Protein Albumin Globulin Albumin/Globulin Ratio Arterial Blood Potassium 3.6 Urine Color Urine Clarity Urine pH Ur Specific [place] Urine Protein Urine Glucose (UA) Urine Ketones Urine Blood Urine Nitrate Urine Bilirubin Urine Urobilinogen Ur Leukocyte Esterase Urine WBC (Auto) Urine Bacteria Urine Yeast (Budding) Influenza Typ A,B (EIA) Pos for influenza a H 04/08/17 04/08/17 04/08/17 17:17 17:17 20:11 WBC RBC Hgb Hct MCV MCH MCHC RDW Plt Count MPV Neut % (Auto) Lymph % (Auto) [place] % (Auto) Eos % (Auto) Baso % (Auto) Neut # Lymph # [place] # Eos # Baso # Neutrophils % (Manual) Band Neutrophils % Lymphocytes % (Manual) Monocytes % (Manual) Eosinophils % (Manual) Metamyelocytes % Myelocytes % Nucleated RBC % Toxic Granulation Dohle Bodies Platelet Estimate Large Platelets Anisocytosis (manual) Macrocytosis (manual) Puncture Site pCO2 pO2 HCO3 ABG pH ABG Total CO2 ABG O2 Saturation ABG Base Excess ABG Hemoglobin ABG Carboxyhemoglobin POC ABG HHb (Measured) ABG Methemoglobin Heriberto Test ABG Potassium A-a O2 Difference Respiratory Index Hgb O2 Saturation Sodium 162 H* Chloride 134 H Glucose Lactate Vent Mode Mechanical Rate FiO2 Tidal Volume PEEP Crit Value Called To Crit Value Called By Crit Value Read Back Blood Gas Notified Time Potassium 3.9 Carbon Dioxide 17 L Anion Gap 16 BUN 76 H Creatinine 1.9 H Est GFR ( Amer) 41 Est GFR (Non-Af Amer) 34 POC Glucose (mg/dL) Random Glucose 295 H Lactic Acid 9.4 H* Calcium 8.1 L Phosphorus Magnesium Total Bilirubin 0.8 AST 47 ALT 45 Alkaline Phosphatase 233 H Troponin I 0.0140 NT-Pro-B Natriuret Pep 2120 H Total Protein 6.1 L Albumin 2.4 L Globulin 3.7 Albumin/Globulin Ratio 0.7 L Arterial Blood Potassium Urine Color Yellow Urine Clarity Hazy Urine pH 5.0 Ur Specific [place] 1.017 Urine Protein 2+ H Urine Glucose (UA) 1+ H Urine Ketones Negative Urine Blood Negative Urine Nitrate Negative Urine Bilirubin Negative Urine Urobilinogen Normal Ur Leukocyte Esterase 3+ H Urine WBC (Auto) 50 H Urine Bacteria Occ H Urine Yeast (Budding) Many H Influenza Typ A,B (EIA) 04/08/17 04/08/17 04/09/17 21:32 23:48 04:27 WBC RBC Hgb Hct MCV MCH MCHC RDW Plt Count MPV Neut % (Auto) Lymph % (Auto) [place] % (Auto) Eos % (Auto) Baso % (Auto) Neut # Lymph # [place] # Eos # Baso # Neutrophils % (Manual) Band Neutrophils % Lymphocytes % (Manual) Monocytes % (Manual) Eosinophils % (Manual) Metamyelocytes % Myelocytes % Nucleated RBC % Toxic Granulation Dohle Bodies Platelet Estimate Large Platelets Anisocytosis (manual) Macrocytosis (manual) Puncture Site pCO2 pO2 HCO3 ABG pH ABG Total CO2 ABG O2 Saturation ABG Base Excess ABG Hemoglobin ABG Carboxyhemoglobin POC ABG HHb (Measured) ABG Methemoglobin Heriberto Test ABG Potassium A-a O2 Difference Respiratory Index Hgb O2 Saturation Sodium Chloride Glucose Lactate Vent Mode Mechanical Rate FiO2 Tidal Volume PEEP Crit Value Called To Crit Value Called By Crit Value Read Back Blood Gas Notified Time Potassium Carbon Dioxide Anion Gap BUN Creatinine Est GFR ( Amer) Est GFR (Non-Af Amer) POC Glucose (mg/dL) 130 H 105 86 Random Glucose Lactic Acid Calcium Phosphorus Magnesium Total Bilirubin AST ALT Alkaline Phosphatase Troponin I NT-Pro-B Natriuret Pep Total Protein Albumin Globulin Albumin/Globulin Ratio Arterial Blood Potassium Urine Color Urine Clarity Urine pH Ur Specific [place] Urine Protein Urine Glucose (UA) Urine Ketones Urine Blood Urine Nitrate Urine Bilirubin Urine Urobilinogen Ur Leukocyte Esterase Urine WBC (Auto) Urine Bacteria Urine Yeast (Budding) Influenza Typ A,B (EIA) 04/09/17 04/09/17 04/09/17 05:40 06:22 06:22 WBC 1.6 L* RBC 2.95 L Hgb 9.4 L Hct 32.1 L MCV 108.7 H D MCH 31.7 H MCHC 29.1 L RDW 22.2 H Plt Count 51 L D MPV 12.8 H Neut % (Auto) 77.2 H Lymph % (Auto) 20.4 [place] % (Auto) 1.8 Eos % (Auto) 0.4 Baso % (Auto) 0.2 Neut # 1.3 L Lymph # 0.3 L [place] # 0.0 Eos # 0.0 Baso # 0.0 Neutrophils % (Manual) Band Neutrophils % Lymphocytes % (Manual) Monocytes % (Manual) Eosinophils % (Manual) Metamyelocytes % Myelocytes % Nucleated RBC % Toxic Granulation Dohle Bodies Platelet Estimate Large Platelets Anisocytosis (manual) Macrocytosis (manual) Puncture Site L bra pCO2 21 L pO2 88 HCO3 9.2 L* ABG pH 7.14 L* ABG Total CO2 7.7 L ABG O2 Saturation 98.2 H ABG Base Excess -20.1 L ABG Hemoglobin 9.0 L ABG Carboxyhemoglobin 1.8 H POC ABG HHb (Measured) 1.7 ABG Methemoglobin 1.5 Heriberto Test Na ABG Potassium A-a O2 Difference 599.0 Respiratory Index 6.8 Hgb O2 Saturation 95.1 Sodium 160 H* Chloride 134 H Glucose Lactate Vent Mode Prvc Mechanical Rate 22 FiO2 100.0 Tidal Volume 500 PEEP 5 Crit Value Called To [facility] agricultural 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 Crit Value Called By Alix buck rt Crit Value Read Back Y Blood Gas Notified Time 609 Potassium 3.8 Carbon Dioxide 10 L* D Anion Gap 20 BUN 70 H Creatinine 2.1 H Est GFR ( Amer) 36 Est GFR (Non-Af Amer) 30 POC Glucose (mg/dL) Random Glucose 90 Lactic Acid Calcium 6.7 L Phosphorus 4.5 Magnesium 2.1 Total Bilirubin 1.0 AST 155 H D ALT 93 H D Alkaline Phosphatase 155 H D Troponin I NT-Pro-B Natriuret Pep Total Protein 4.6 L Albumin 1.8 L D Globulin 2.9 Albumin/Globulin Ratio 0.6 L Arterial Blood Potassium Urine Color Urine Clarity Urine pH Ur Specific [place] Urine Protein Urine Glucose (UA) Urine Ketones Urine Blood Urine Nitrate Urine Bilirubin Urine Urobilinogen Ur Leukocyte Esterase Urine WBC (Auto) Urine Bacteria Urine Yeast (Budding) Influenza Typ A,B (EIA) 04/09/17 04/09/17 08:51 11:39 WBC RBC Hgb Hct MCV MCH MCHC RDW Plt Count MPV Neut % (Auto) Lymph % (Auto) [place] % (Auto) Eos % (Auto) Baso % (Auto) Neut # Lymph # [place] # Eos # Baso # Neutrophils % (Manual) Band Neutrophils % Lymphocytes % (Manual) Monocytes % (Manual) Eosinophils % (Manual) Metamyelocytes % Myelocytes % Nucleated RBC % Toxic Granulation Dohle Bodies Platelet Estimate Large Platelets Anisocytosis (manual) Macrocytosis (manual) Puncture Site pCO2 pO2 HCO3 ABG pH ABG Total CO2 ABG O2 Saturation ABG Base Excess ABG Hemoglobin ABG Carboxyhemoglobin POC ABG HHb (Measured) ABG Methemoglobin Heriberto Test ABG Potassium A-a O2 Difference Respiratory Index Hgb O2 Saturation Sodium Chloride Glucose Lactate Vent Mode Mechanical Rate FiO2 Tidal Volume PEEP Crit Value Called To Crit Value Called By Crit Value Read Back Blood Gas Notified Time Potassium Carbon Dioxide Anion Gap BUN Creatinine Est GFR ( Amer) Est GFR (Non-Af Amer) POC Glucose (mg/dL) 76 74 Random Glucose Lactic Acid Calcium Phosphorus Magnesium Total Bilirubin AST ALT Alkaline Phosphatase Troponin I NT-Pro-B Natriuret Pep Total Protein Albumin Globulin Albumin/Globulin Ratio Arterial Blood Potassium Urine Color Urine Clarity Urine pH Ur Specific [place] Urine Protein Urine Glucose (UA) Urine Ketones Urine Blood Urine Nitrate Urine Bilirubin Urine Urobilinogen Ur Leukocyte Esterase Urine WBC (Auto) Urine Bacteria Urine Yeast (Budding) Influenza Typ A,B (EIA) EKG/Cardiology Studies: Cardiology / EKG Studies 04/08/17 15:44 ELECTROCARDIOGRAM Stat Comment: Mode Of Transportation: BED Reason For Exam: SOB Isolation: Contact Attending/Attestation - Attestation I have personally seen and examined this patient.: Yes I have fully participated in the care of the patient.: Yes I have reviewed all pertinent clinical information: Yes Notes (Text): 04/09/17 15:53 patient seen and examined in the intensive care unit. remains intubated on ventilatory support pt on 3 pressors continue IV antibiotics Bicarbonate Prognosis poor Case discussed with family
[2017-04-09] MEDS ORDERED: SODIUM CHLORIDE 0.9% IV PRN (15:00)
[2017-04-09] MEDS ORDERED: PHENYLEPHRINE IV PRN (15:00)
--- NOTE | 2017-04-09 15:15 | CP.PCM.CON ---
History of Present Illness - History of Present Illness History of Present Illness: Palliative consult requested by Doctor Evin for goals of care discussion Patient is a 87 yo male admitted from [place] in respiratory distress. CXR confirmed pneumonia. Patient underwent respiratory distress due to severe sepsis and bradicardia and was placed on MV support. Levophed and vasopressin for BP support. Palliative care was called for family support and goals of care dscussion PMH: anemia, CHF, CKD, Parkinson's, PEG Soc. Hx: single, has estranged daughter, no contacts with her, Leonor the niece is a main child daycare worker Fam. Hx: COPD n family, ( father) Review of Systems - Review of Systems All systems: reviewed and no additional remarkable complaints except Review of Systems: ROS obtained from nursing due to condition, On reverse isolation Past Patient History - Infectious Disease Hx of Infectious Diseases: None - Past Medical History & Family History Past Medical History?: Yes - Past Social History Smoking Status: No - CARDIAC Hx Cardiac Disorders: Yes Hx Congestive Heart Failure: Yes Hx Hypercholesterolemia: Yes Hx Hypertension: Yes - PULMONARY Hx Respiratory Disorders: No - NEUROLOGICAL Hx Neurological Disorder: Yes Hx Alzheimer's Disease: Yes Hx Parkinson's Disease: Yes - HEENT 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 area as per niece - MUSCULOSKELETAL/RHEUMATOLOGICAL Hx Musculoskeletal Disorders: Yes Hx Falls: Yes - GASTROINTESTINAL Hx Gastrointestinal Disorders: Yes Hx Constipation: Yes Hx Diarrhea: Yes - GENITOURINARY/GYNECOLOGICAL Hx Genitourinary Disorders: Yes Hx Incontinence: Yes - PSYCHIATRIC Hx Psychophysiologic Disorder: No Hx Substance Use: No - SURGICAL HISTORY Hx Surgeries: Yes (right ankle surgery, bilateral eye surgeries) - ANESTHESIA Hx Anesthesia: Yes Hx Anesthesia Reactions: No Hx Malignant Hyperthermia: No Has any member of the family had a problem w/ anesthesia?: No Meds Allergies/Adverse Reactions: Allergies Allergy/AdvReac Type Severity Reaction Status Date / Time No Known Allergies Allergy Verified 04/08/17 14:45 - Medications Medications: Current Medications Albuterol/Ipratropium (Duoneb 3 Mg/0.5 Mg (3 Ml) Ud) 3 ml INH RQ6 [facility] Last Admin: 04/09/17 14:25 Dose: 3 ml Carbidopa/Levodopa (Sinemet 10/100) 1 tab GT QID [facility] Last Admin: 04/09/17 13:27 Dose: 1 tab Docusate Sodium (Colace) 100 mg GT TID [facility] Last Admin: 04/09/17 13:28 Dose: Not Given Famotidine (Pepcid) 20 mg IVP DAILY [facility] Last Admin: 04/09/17 09:01 Dose: 20 mg Midazolam HCl 100 mg/ Dextrose 100 mls @ 1.27 mls/hr IV .Q24H AUGUST; 0.02 MG/KG/ HR PRN Reason: Protocol Last Admin: 04/08/17 18:00 Dose: Not Given Norepinephrine Bitartrate 8 mg (/ Dextrose) 258 mls @ 38.7 mls/hr IV .Q6H40M PRN; Protocol; 20 MCG/MIN PRN Reason: TITRATE PER MD ORDER Last Admin: 04/09/17 13:18 Dose: 20 mcg/min, 38.7 mls/hr Vasopressin 40 units/ Sodium (Chloride) 40 mls @ 0.6 mls/hr IV .Q24H PRN; Protocol; 0.01 UNITS/MIN PRN Reason: PER PROTOCOL Last Admin: 04/09/17 13:16 Dose: 0.04 units/min, 2.4 mls/hr Sodium Chloride (Sodium Chloride 0.45%) 1,000 mls @ 150 mls/hr IV .Q6H40M [facility] Last Admin: 04/09/17 13:14 Dose: 150 mls/hr Linezolid (Zyvox 600mg/300ml D5w) 600 mg in 300 mls @ 200 mls/hr IVPB Q12 [facility] Last Admin: 04/09/17 09:56 Dose: 200 mls/hr Meropenem 500 mg/ Sodium (Chloride) 100 mls @ 100 mls/hr IVPB Q12H [facility] Phenylephrine HCl 60 mg/ (Sodium Chloride) 250 mls @ 2.5 mls/hr IV .Q24H PRN; Protocol; 10 MCG/MIN PRN Reason: TITRATE PER MD ORDER Insulin Aspart (Novolog) 0 unit SC Q4 AUGUST PRN Reason: Protocol Last Admin: 04/09/17 12:01 Dose: Not Given Oseltamivir Phosphate (Tamiflu Cap) 75 mg PO BID [facility] Stop: 04/13/17 20:33 Last Admin: 04/09/17 09:01 Dose: 75 mg Senna/Docusate Sodium (Senokot S 50 Mg-8.6 Mg) 1 tab PO DAILY PRN PRN Reason: Constipation Physical Exam - Constitutional Appears: In Acute Distress, Chronically Ill - Head Exam Head Exam: ATRAUMATIC, NORMAL INSPECTION, NORMOCEPHALIC - Eye Exam Eye Exam: Periorbital swelling Additional comments: eyes open, bulging look, pupils slugish - ENT Exam Additional comments: ETT - Neck Exam Neck exam: Positive for: Normal Inspection - Respiratory Exam Respiratory Exam: Decreased Breath Sounds Additional comments: On MV - Cardiovascular Exam Additional comments: On Pressors - GI/Abdominal Exam Additional comments: PEG - Rectal Exam Rectal Exam: Deferred - Exam Additional comments: Potter cath - Extremities Exam Extremities exam: Positive for: normal inspection - Back Exam Back exam: NORMAL INSPECTION Results - Vital Signs Recent Vital Signs: Last Vital Signs Temp 96 F L 04/09/17 00:00 Pulse 114 H 04/09/17 09:15 Resp 27 H 04/09/17 09:15 BP 116/66 04/09/17 13:18 Pulse Ox 99 04/09/17 09:15 - Labs Result Diagrams: 04/09/17 06:22 04/09/17 06:22 Labs: Laboratory Results - last 24 hr 04/08/17 04/08/17 04/08/17 15:44 17:10 17:17 WBC 1.6 L* D RBC 2.97 L Hgb 9.4 L Hct 30.6 L MCV 103.1 H D MCH 31.7 H MCHC 30.7 L RDW 21.2 H Plt Count 111 L D MPV 11.5 Neut % (Auto) 88.8 H Lymph % (Auto) 5.4 L [place] % (Auto) 5.2 Eos % (Auto) 0.6 Baso % (Auto) 0.0 Neut # 1.4 L Lymph # 0.1 L [place] # 0.1 Eos # 0.0 Baso # 0.0 Neutrophils % (Manual) 59 Band Neutrophils % 28 H* Lymphocytes % (Manual) 4 L Monocytes % (Manual) 1 Eosinophils % (Manual) 1 Metamyelocytes % 3 H Myelocytes % 4 H Nucleated RBC % 1 H Toxic Granulation Present Dohle Bodies Present Platelet Estimate Slightly decreased L Large Platelets Present Anisocytosis (manual) Moderate Macrocytosis (manual) Moderate Puncture Site Lba pCO2 27 L pO2 139 H HCO3 18.3 L ABG pH 7.36 ABG Total CO2 16.1 L ABG O2 Saturation 100.8 H ABG Base Excess -8.6 L ABG Hemoglobin ABG Carboxyhemoglobin POC ABG HHb (Measured) ABG Methemoglobin Heriberto Test Yes ABG Potassium 3.6 A-a O2 Difference 540.0 Respiratory Index 3.9 Hgb O2 Saturation Sodium 161.0 H* Chloride 135.0 H Glucose 289 H Lactate 7.7 H* Vent Mode Prvc Mechanical Rate 12 FiO2 100.0 Tidal Volume 500 PEEP 5 Crit Value Called To prom burn off operator sulema Crit Value Called By eTresa occupational therapy specialist Crit Value Read Back Y Blood Gas Notified Time 1721 Potassium Carbon Dioxide Anion Gap BUN Creatinine Est GFR ( Amer) Est GFR (Non-Af Amer) POC Glucose (mg/dL) Random Glucose Lactic Acid Calcium Phosphorus Magnesium Total Bilirubin AST ALT Alkaline Phosphatase Troponin I NT-Pro-B Natriuret Pep Total Protein Albumin Globulin Albumin/Globulin Ratio Arterial Blood Potassium 3.6 Urine Color Urine Clarity Urine pH Ur Specific [place] Urine Protein Urine Glucose (UA) Urine Ketones Urine Blood Urine Nitrate Urine Bilirubin Urine Urobilinogen Ur Leukocyte Esterase Urine WBC (Auto) Urine Bacteria Urine Yeast (Budding) Influenza Typ A,B (EIA) Pos for influenza a H 04/08/17 04/08/17 04/08/17 17:17 17:17 20:11 WBC RBC Hgb Hct MCV MCH MCHC RDW Plt Count MPV Neut % (Auto) Lymph % (Auto) [place] % (Auto) Eos % (Auto) Baso % (Auto) Neut # Lymph # [place] # Eos # Baso # Neutrophils % (Manual) Band Neutrophils % Lymphocytes % (Manual) Monocytes % (Manual) Eosinophils % (Manual) Metamyelocytes % Myelocytes % Nucleated RBC % Toxic Granulation Dohle Bodies Platelet Estimate Large Platelets Anisocytosis (manual) Macrocytosis (manual) Puncture Site pCO2 pO2 HCO3 ABG pH ABG Total CO2 ABG O2 Saturation ABG Base Excess ABG Hemoglobin ABG Carboxyhemoglobin POC ABG HHb (Measured) ABG Methemoglobin Heriberto Test ABG Potassium A-a O2 Difference Respiratory Index Hgb O2 Saturation Sodium 162 H* Chloride 134 H Glucose Lactate Vent Mode Mechanical Rate FiO2 Tidal Volume PEEP Crit Value Called To Crit Value Called By Crit Value Read Back Blood Gas Notified Time Potassium 3.9 Carbon Dioxide 17 L Anion Gap 16 BUN 76 H Creatinine 1.9 H Est GFR ( Amer) 41 Est GFR (Non-Af Amer) 34 POC Glucose (mg/dL) Random Glucose 295 H Lactic Acid 9.4 H* Calcium 8.1 L Phosphorus Magnesium Total Bilirubin 0.8 AST 47 ALT 45 Alkaline Phosphatase 233 H Troponin I 0.0140 NT-Pro-B Natriuret Pep 2120 H Total Protein 6.1 L Albumin 2.4 L Globulin 3.7 Albumin/Globulin Ratio 0.7 L Arterial Blood Potassium Urine Color Yellow Urine Clarity Hazy Urine pH 5.0 Ur Specific [place] 1.017 Urine Protein 2+ H Urine Glucose (UA) 1+ H Urine Ketones Negative Urine Blood Negative Urine Nitrate Negative Urine Bilirubin Negative Urine Urobilinogen Normal Ur Leukocyte Esterase 3+ H Urine WBC (Auto) 50 H Urine Bacteria Occ H Urine Yeast (Budding) Many H Influenza Typ A,B (EIA) 04/08/17 04/08/17 04/09/17 21:32 23:48 04:27 WBC RBC Hgb Hct MCV MCH MCHC RDW Plt Count MPV Neut % (Auto) Lymph % (Auto) [place] % (Auto) Eos % (Auto) Baso % (Auto) Neut # Lymph # [place] # Eos # Baso # Neutrophils % (Manual) Band Neutrophils % Lymphocytes % (Manual) Monocytes % (Manual) Eosinophils % (Manual) Metamyelocytes % Myelocytes % Nucleated RBC % Toxic Granulation Dohle Bodies Platelet Estimate Large Platelets Anisocytosis (manual) Macrocytosis (manual) Puncture Site pCO2 pO2 HCO3 ABG pH ABG Total CO2 ABG O2 Saturation ABG Base Excess ABG Hemoglobin ABG Carboxyhemoglobin POC ABG HHb (Measured) ABG Methemoglobin Heriberto Test ABG Potassium A-a O2 Difference Respiratory Index Hgb O2 Saturation Sodium Chloride Glucose Lactate Vent Mode Mechanical Rate FiO2 Tidal Volume PEEP Crit Value Called To Crit Value Called By Crit Value Read Back Blood Gas Notified Time Potassium Carbon Dioxide Anion Gap BUN Creatinine Est GFR ( Amer) Est GFR (Non-Af Amer) POC Glucose (mg/dL) 130 H 105 86 Random Glucose Lactic Acid Calcium Phosphorus Magnesium Total Bilirubin AST ALT Alkaline Phosphatase Troponin I NT-Pro-B Natriuret Pep Total Protein Albumin Globulin Albumin/Globulin Ratio Arterial Blood Potassium Urine Color Urine Clarity Urine pH Ur Specific [place] Urine Protein Urine Glucose (UA) Urine Ketones Urine Blood Urine Nitrate Urine Bilirubin Urine Urobilinogen Ur Leukocyte Esterase Urine WBC (Auto) Urine Bacteria Urine Yeast (Budding) Influenza Typ A,B (EIA) 04/09/17 04/09/17 04/09/17 05:40 06:22 06:22 WBC 1.6 L* RBC 2.95 L Hgb 9.4 L Hct 32.1 L MCV 108.7 H D MCH 31.7 H MCHC 29.1 L RDW 22.2 H Plt Count 51 L D MPV 12.8 H Neut % (Auto) 77.2 H Lymph % (Auto) 20.4 [place] % (Auto) 1.8 Eos % (Auto) 0.4 Baso % (Auto) 0.2 Neut # 1.3 L Lymph # 0.3 L [place] # 0.0 Eos # 0.0 Baso # 0.0 Neutrophils % (Manual) Band Neutrophils % Lymphocytes % (Manual) Monocytes % (Manual) Eosinophils % (Manual) Metamyelocytes % Myelocytes % Nucleated RBC % Toxic Granulation Dohle Bodies Platelet Estimate Large Platelets Anisocytosis (manual) Macrocytosis (manual) Puncture Site L bra pCO2 21 L pO2 88 HCO3 9.2 L* ABG pH 7.14 L* ABG Total CO2 7.7 L ABG O2 Saturation 98.2 H ABG Base Excess -20.1 L ABG Hemoglobin 9.0 L ABG Carboxyhemoglobin 1.8 H POC ABG HHb (Measured) 1.7 ABG Methemoglobin 1.5 Heriberto Test Na ABG Potassium A-a O2 Difference 599.0 Respiratory Index 6.8 Hgb O2 Saturation 95.1 Sodium 160 H* Chloride 134 H Glucose Lactate Vent Mode Prvc Mechanical Rate 22 FiO2 100.0 Tidal Volume 500 PEEP 5 Crit Value Called To [place] [employer] agriculture worker Crit Value Called By Alix buck rt Crit Value Read Back Y Blood Gas Notified Time 609 Potassium 3.8 Carbon Dioxide 10 L* D Anion Gap 20 BUN 70 H Creatinine 2.1 H Est GFR ( Amer) 36 Est GFR (Non-Af Amer) 30 POC Glucose (mg/dL) Random Glucose 90 Lactic Acid Calcium 6.7 L Phosphorus 4.5 Magnesium 2.1 Total Bilirubin 1.0 AST 155 H D ALT 93 H D Alkaline Phosphatase 155 H D Troponin I NT-Pro-B Natriuret Pep Total Protein 4.6 L Albumin 1.8 L D Globulin 2.9 Albumin/Globulin Ratio 0.6 L Arterial Blood Potassium Urine Color Urine Clarity Urine pH Ur Specific [place] Urine Protein Urine Glucose (UA) Urine Ketones Urine Blood Urine Nitrate Urine Bilirubin Urine Urobilinogen Ur Leukocyte Esterase Urine WBC (Auto) Urine Bacteria Urine Yeast (Budding) Influenza Typ A,B (EIA) 04/09/17 04/09/17 08:51 11:39 WBC RBC Hgb Hct MCV MCH MCHC RDW Plt Count MPV Neut % (Auto) Lymph % (Auto) [place] % (Auto) Eos % (Auto) Baso % (Auto) Neut # Lymph # [place] # Eos # Baso # Neutrophils % (Manual) Band Neutrophils % Lymphocytes % (Manual) Monocytes % (Manual) Eosinophils % (Manual) Metamyelocytes % Myelocytes % Nucleated RBC % Toxic Granulation Dohle Bodies Platelet Estimate Large Platelets Anisocytosis (manual) Macrocytosis (manual) Puncture Site pCO2 pO2 HCO3 ABG pH ABG Total CO2 ABG O2 Saturation ABG Base Excess ABG Hemoglobin ABG Carboxyhemoglobin POC ABG HHb (Measured) ABG Methemoglobin Heriberto Test ABG Potassium A-a O2 Difference Respiratory Index Hgb O2 Saturation Sodium Chloride Glucose Lactate Vent Mode Mechanical Rate FiO2 Tidal Volume PEEP Crit Value Called To Crit Value Called By Crit Value Read Back Blood Gas Notified Time Potassium Carbon Dioxide Anion Gap BUN Creatinine Est GFR ( Amer) Est GFR (Non-Af Amer) POC Glucose (mg/dL) 76 74 Random Glucose Lactic Acid Calcium Phosphorus Magnesium Total Bilirubin AST ALT Alkaline Phosphatase Troponin I NT-Pro-B Natriuret Pep Total Protein Albumin Globulin Albumin/Globulin Ratio Arterial Blood Potassium Urine Color Urine Clarity Urine pH Ur Specific [place] Urine Protein Urine Glucose (UA) Urine Ketones Urine Blood Urine Nitrate Urine Bilirubin Urine Urobilinogen Ur Leukocyte Esterase Urine WBC (Auto) Urine Bacteria Urine Yeast (Budding) Influenza Typ A,B (EIA) Assessment & Plan - Assessment and Plan (Free Text) Assessment: palliative consult Code status DNR, Advance directive on chart, PPS 0% I reviewed medical records, all diagnostic studies, examined patient in the bed. Patient is intubated on full life support acutely ill. Patient keeps eyes wide open, pupils are sluggish in reaction to life, unable to fallow commends. Family feels patient is aware of their presence. Skin pale, hb 9.4. Afebrile. BP 86/63, Vasopressor and Levophed on board. Breath sounds diminished, FiO2 50% . HR 66. PEG in place, distant bowel sounds. There is no active ROM. WBC 1.6, patient on reverse isolation. Neutrophils high at 28. Ph 7.4, acidosis , Na 161. Goals of care discussed with Leonor, the niece at bed side. I reviewed patient' s clinical condition and the latest blood results. Leonor said she had spoke to the Doctor last night and was made aware of patient's critical and complex condition. Patient was made DNR. Leonor comfirmed her decision again stating that she would not want her uncle to suffer. She reports that patient's condition has significantly declined from 3 months ago. At that time patient was given PEG for dysphagia and placed and NH. Loenor understands patient's advanced age and complex medical Hx. She wishes her uncle recovers and gets of MV support. her goal is that he does not suffer. We agree to meet as needed and to update goals of care. * Chronically ill man with acute respiratory distress on MV support 2nd to Pneumonia and sepsis * Patient remains very critical at present and is on 2 pressors * prognosis seems very guarded * Surendra Galvez advocates for the patient and agreed with DNR * Surendra is concerned with patient's comfort and wishes he gets of the MV Suggestions * Agree with DNR * Continue reverse isolation * Artificial eye drops for the dry eyes syndrome Goals of care will be updated based on patient's progress. Niece ready for comfort only care if condition worsens. Time spent on Advance Care planing, 45 min.
--- NOTE | 2017-04-09 16:25 | CARD ---
APPROVED REPORT EKG Measurement Heart [id number] ND [id number] <Conclusion> Sinus tachycardia with short ND with premature supraventricular complexes Low voltage QRS Nonspecific T wave abnormality Abnormal ECG
[2017-04-09] MEDS: SODIUM CHLORIDE 0.9% IV PRN ×2 (17:35→23:28)
[2017-04-09] MEDS: PHENYLEPHRINE IV PRN ×2 (17:35→23:28)
[2017-04-09] MEDS ORDERED: Dextrose 50% SYRINGE Inj (50 ml) IV STA ×2 (18:06→18:37)
[2017-04-09] MEDS ORDERED: Vancomycin 1 gm/NS 200 ml 1 GM/200 ML BAG IVPB SCH (18:30)
[2017-04-09] MEDS: Midazolam 50 mg/10 ml 100 MG in Dextrose 5% In Water 80 ML IV SCH (18:38)
[2017-04-09] MEDS ORDERED: Dextrose 50% VIAL Inj (50 ml) IV ONE ×2 (19:00)
[2017-04-09] MEDS ORDERED: Dextrose 50% SYRINGE Inj (50 ml) IV ONE (19:00)
--- NOTE | 2017-04-09 19:33 | CP.PCM.PN ---
Subjective - Date & Time of Evaluation Date of Evaluation: 04/09/17 Time of Evaluation: 13:00 - Subjective Subjective: clinically same Objective - Vital Signs/Intake and Output Vital Signs (last 24 hours): Temp Pulse Resp BP Pulse Ox 96 F L 114 H 27 H 96/66 L 99 04/09/17 00:00 04/09/17 09:15 04/09/17 09:15 04/09/17 17:35 04/09/17 09:15 Intake and Output: 04/09/17 04/10/17 18:59 06:59 Intake Total 1070.1 Output Total 10 Balance 1060.1 - Medications Medications: Current Medications Albuterol/Ipratropium (Duoneb 3 Mg/0.5 Mg (3 Ml) Ud) 3 ml INH RQ6 [facility] Last Admin: 04/09/17 14:25 Dose: 3 ml Carbidopa/Levodopa (Sinemet 10/100) 1 tab GT QID [facility] Last Admin: 04/09/17 17:10 Dose: 1 tab Docusate Sodium (Colace) 100 mg GT TID [facility] Last Admin: 04/09/17 18:03 Dose: Not Given Famotidine (Pepcid) 20 mg IVP DAILY [facility] Last Admin: 04/09/17 09:01 Dose: 20 mg Midazolam HCl 100 mg/ Dextrose 100 mls @ 1.27 mls/hr IV .Q24H AUGUST; 0.02 MG/KG/ HR PRN Reason: Protocol Last Admin: 04/09/17 18:38 Dose: Not Given Norepinephrine Bitartrate 8 mg (/ Dextrose) 258 mls @ 38.7 mls/hr IV .Q6H40M PRN; Protocol; 20 MCG/MIN PRN Reason: TITRATE PER MD ORDER Last Admin: 04/09/17 13:18 Dose: 20 mcg/min, 38.7 mls/hr Vasopressin 40 units/ Sodium (Chloride) 40 mls @ 0.6 mls/hr IV .Q24H PRN; Protocol; 0.01 UNITS/MIN PRN Reason: PER PROTOCOL Last Admin: 04/09/17 13:16 Dose: 0.04 units/min, 2.4 mls/hr Sodium Chloride (Sodium Chloride 0.45%) 1,000 mls @ 150 mls/hr IV .Q6H40M [facility] Last Admin: 04/09/17 13:14 Dose: 150 mls/hr Linezolid (Zyvox 600mg/300ml D5w) 600 mg in 300 mls @ 200 mls/hr IVPB Q12 [facility] Last Admin: 04/09/17 09:56 Dose: 200 mls/hr Meropenem 500 mg/ Sodium (Chloride) 100 mls @ 100 mls/hr IVPB Q12H [facility] Last Admin: 04/09/17 18:17 Dose: 100 mls/hr Phenylephrine HCl 60 mg/ (Sodium Chloride) 250 mls @ 2.5 mls/hr IV .Q24H PRN; Protocol; 10 MCG/MIN PRN Reason: TITRATE PER MD ORDER Last Titration: 04/09/17 18:34 Dose: 140 mcg/min, 34.99 mls/hr Gentamicin Sulfate 80 mg/ (Sodium Chloride) 102 mls @ 100 mls/hr IVPB Q24H [facility] Last Admin: 04/09/17 18:55 Dose: 100 mls/hr Insulin Aspart (Novolog) 0 unit SC Q6 [facility] PRN Reason: Protocol Last Admin: 04/09/17 18:52 Dose: Not Given Oseltamivir Phosphate (Tamiflu Cap) 75 mg PO BID [facility] Stop: 04/13/17 20:33 Last Admin: 04/09/17 17:10 Dose: 75 mg Senna/Docusate Sodium (Senokot S 50 Mg-8.6 Mg) 1 tab PO DAILY PRN PRN Reason: Constipation - Labs Labs: 04/09/17 06:22 04/09/17 06:22
[2017-04-09 19:43] VITALS: RESP 22
[2017-04-09 20:42] VITALS: BP 47/31
[2017-04-10] MEDS: (Novolog) Insulin Aspart, Recombinant 100 u/ml 10 ml vial SC SCH (00:26)
[2017-04-10 00:27] VITALS: PULSE 118
[2017-04-10 00:30] VITALS: TEMP 95.6
--- NOTE | 2017-04-10 01:09 | CP.PCM.PN ---
Subjective - Date & Time of Evaluation Date of Evaluation: 04/10/17 Time of Evaluation: 01:09 - Subjective Subjective: Patient was admitted to intensive care unit with acute respiratory distress and septic shock. Patient was admitted on 04/08/2017. He has a history of Parkinson disease, dementia, hypertension, congestive heart failure and feeding tube. Patient was intubated, and placed on multiple medications, including DIPs to maintain the blood pressure including norepinephrine, vasopressin. But in spite of that the patient blood pressure did not improve, progressively his condition got worse. Nurse practitioner spoke to patient's niece, and a DNR was made during the daytime on 04/09/2017. Patient's condition gradually got worse, in spite of the full support the blood pressure dropped, and he become slowly bradycardic, and did develop the asystolic arrest at 12:15 AM on 04/10/2017. Patient pronounced at that time. I spoke to the patient's niece, and it informed about the condition. Patient's primary doctor as well as consultants was called. Objective - Vital Signs/Intake and Output Vital Signs (last 24 hours): Temp Pulse Resp BP Pulse Ox 95.6 F L 118 H 22 47/31 L 84 L 04/10/17 00:00 04/10/17 00:10 04/10/17 00:10 04/09/17 23:28 04/09/17 21:30 Intake and Output: 04/09/17 04/10/17 18:59 06:59 Intake Total 3657.1 2185.5 Output Total 10 0 Balance 3647.1 2185.5 - Medications Medications: Current Medications Albuterol/Ipratropium (Duoneb 3 Mg/0.5 Mg (3 Ml) Ud) 3 ml INH RQ6 [facility] Last Admin: 04/09/17 19:39 Dose: 3 ml Carbidopa/Levodopa (Sinemet 10/100) 1 tab GT QID [facility] Last Admin: 04/09/17 22:02 Dose: Not Given Docusate Sodium (Colace) 100 mg GT TID [facility] Last Admin: 04/09/17 18:03 Dose: Not Given Famotidine (Pepcid) 20 mg IVP DAILY [facility] Last Admin: 04/09/17 09:01 Dose: 20 mg Midazolam HCl 100 mg/ Dextrose 100 mls @ 1.27 mls/hr IV .Q24H [facility]; 0.02 MG/KG/ HR PRN Reason: Protocol Last Admin: 04/09/17 18:38 Dose: Not Given Norepinephrine Bitartrate 8 mg (/ Dextrose) 258 mls @ 38.7 mls/hr IV .Q6H40M PRN; Protocol; 20 MCG/MIN PRN Reason: TITRATE PER MD ORDER Last Admin: 04/09/17 21:02 Dose: 20 mcg/min, 38.7 mls/hr Vasopressin 40 units/ Sodium (Chloride) 40 mls @ 0.6 mls/hr IV .Q24H PRN; Protocol; 0.01 UNITS/MIN PRN Reason: PER PROTOCOL Last Admin: 04/09/17 13:16 Dose: 0.04 units/min, 2.4 mls/hr Sodium Chloride (Sodium Chloride 0.45%) 1,000 mls @ 150 mls/hr IV .Q6H40M [facility] Last Admin: 04/09/17 20:21 Dose: 150 mls/hr Linezolid (Zyvox 600mg/300ml D5w) 600 mg in 300 mls @ 200 mls/hr IVPB Q12 [facility] Last Admin: 04/09/17 22:04 Dose: 200 mls/hr Meropenem 500 mg/ Sodium (Chloride) 100 mls @ 100 mls/hr IVPB Q12H [facility] Last Admin: 04/09/17 18:17 Dose: 100 mls/hr Phenylephrine HCl 60 mg/ (Sodium Chloride) 250 mls @ 2.5 mls/hr IV .Q24H PRN; Protocol; 10 MCG/MIN PRN Reason: TITRATE PER MD ORDER Last Admin: 04/09/17 23:28 Dose: 180 mcg/min, 45 mls/hr Gentamicin Sulfate 80 mg/ (Sodium Chloride) 102 mls @ 100 mls/hr IVPB Q24H [facility] Last Admin: 04/09/17 18:55 Dose: 100 mls/hr Insulin Aspart (Novolog) 0 unit SC Q6 [facility] PRN Reason: Protocol Last Admin: 04/10/17 00:26 Dose: Not Given Oseltamivir Phosphate (Tamiflu Cap) 75 mg PO BID [facility] Stop: 04/13/17 20:33 Last Admin: 04/09/17 17:10 Dose: 75 mg Senna/Docusate Sodium (Senokot S 50 Mg-8.6 Mg) 1 tab PO DAILY PRN PRN Reason: Constipation - Labs Labs: 04/09/17 06:22 04/09/17 06:22
[2017-04-10 07:41] VITALS: O2SAT 89
== END 2017-04-10 00:30 | DRG 871 ==
LOC: C.ER 14:27 → C.9E 16:52 → C.9I 18:53
PROVIDERS: ADMIT Internal Medicine Nephrology; ATTEND Internal Medicine Nephrology
PROC: 5A1945Z Respiratory Ventilation, 24-96 Consecutive Hours (ICD-10-PCS; principal; 2017-04-08)
PROC: 0BH17EZ Insertion of Endotracheal Airway into Trachea, Via Natural or Artificial Opening (ICD-10-PCS; 2017-04-08)
PROC: 3E0G76Z Introduction of Nutritional Substance into Upper GI, Via Natural or Artificial Opening (ICD-10-PCS; 2017-04-08)
DX: A41.51 Sepsis due to Escherichia coli [E. coli] (principal); J18.9 Pneumonia, unspecified organism; J96.91 Respiratory failure, unspecified with hypoxia; R65.21 Severe sepsis with septic shock; N17.9 Acute kidney failure, unspecified; E87.2 Acidosis; I13.0 Hypertensive heart and chronic kidney disease with heart failure and stage 1 through stage 4 chronic kidney disease, or unspecified chronic kidney disease; E11.22 Type 2 diabetes mellitus with diabetic chronic kidney disease; I50.9 Heart failure, unspecified; I95.9 Hypotension, unspecified; J44.0 Chronic obstructive pulmonary disease with (acute) lower respiratory infection; G20 Parkinson's disease; G30.9 Alzheimer's disease, unspecified; F02.80 Dementia in other diseases classified elsewhere, unspecified severity, without behavioral disturbance, psychotic disturbance, mood disturbance, and anxiety; D72.819 Decreased white blood cell count, unspecified; E78.00 Pure hypercholesterolemia, unspecified; H54.7 Unspecified visual loss; N18.9 Chronic kidney disease, unspecified; Z66 Do not resuscitate; R00.1 Bradycardia, unspecified; H04.123 Dry eye syndrome of bilateral lacrimal glands; Z93.1 Gastrostomy status